=== PATIENT | male | born 1955 ===

== ENCOUNTER 2016-10-09 08:00 | Day surgery (SDC) | payer MEDICARE, OTHER ==
[2016-09-30 11:26] VITALS: BMI 22.2
[2016-10-09] MEDS ORDERED: Propofol 10 mg/ml Inj (20 ML) ONE (09:03)
[2016-10-09] MEDS ORDERED: Sodium Chloride 0.9% 1,000 ML IV SCH (10:00)
[2016-10-09 10:31] VITALS: TEMP 97.8
[2016-10-09 11:16] VITALS: BP 116/71; PULSE 69; RESP 16; O2SAT 99
== END 2016-10-09 12:00 | disposition home or self-care (01) ==
LOC: ENDO 08:00
PROVIDERS: ATTEND Internal Medicine Gastroenterology
DX: K29.50 Unspecified chronic gastritis without bleeding (principal); E11.9 Type 2 diabetes mellitus without complications; I25.10 Atherosclerotic heart disease of native coronary artery without angina pectoris; I10 Essential (primary) hypertension; J45.909 Unspecified asthma, uncomplicated; Z86.010 Personal history of colon polyps; Z79.82 Long term (current) use of aspirin; K22.10 Ulcer of esophagus without bleeding
CPT/HCPCS: 43239; 82948; 88305; 88342; J2704; J3010; J7040 ×2

== ENCOUNTER 2017-05-05 14:24 | Inpatient (IN) | payer MEDICARE, OTHER ==
[2017-05-05 14:26] VITALS: BMI 22.2
[2017-05-05] MEDS ORDERED: Morphine 4 mg/ml ISec IVP STA (15:02)
--- NOTE | 2017-05-05 15:04 | ED PDOC ---
Arrival/HPI - General Chief Complaint: Headache Time Seen by Provider: 05/05/17 14:51 Historian: Patient - History of Present Illness Narrative History of Present Illness (Text): 05/05/17 14:52 62 y/o male, pmh including chronic PA with 7 cardiac stents/htn/hyperlipidemia/ dm/anemia/chronic lt. eye blurry vision/renal insufficiency, nkda, send in by pcp Dr. Hoffman, c/o coughing and fever with fatigue x 1 week which causing him to have rt. sided neck pain radiating to the rt. posterior occipital and rt. upper extremity with no fall or trauma. Pt. stated that he has been sick for the past 1 week with fever/cough and bodyache which progressive to the rt. neck pain radiating to the rt. posterior headache and rt. upper extremity. Apparently the patient has been seen in the [facility] ER yesterday and discharge home. Pt. stated that he has not been feeling better and went to see Dr. Hoffman today which refer him to the [place] ER. Pt. stated that he has no acute vision complaints as it is chronic lt. eye blurry vision which has not worsened. pt. stated that he just feels neck pain and feeling fatigue. Past Medical History - Provider Review Nursing Documentation Reviewed: Yes - Infectious Disease Hx of Infectious Diseases: None - Cardiac Hx Hypertension: Yes Hx Pacemaker: No - Neurological Hx Paralysis: No - HEENT Hx HEENT Disorder: Yes Hx Cataracts: Yes Other/Comment: poor vision - Endocrine/Metabolic Hx Endocrine Disorders: Yes Hx Diabetes Mellitus Type 2: Yes - Hematological/Oncological Hx Blood Transfusions: No Hx Blood Transfusion Reaction: No - Musculoskeletal/Rheumatological Hx Musculoskeletal Disorders: No - Psychiatric Hx Emotional Abuse: No Hx Physical Abuse: No Hx Substance Use: No - Surgical History Hx Coronary Stent: Yes (8) - Anesthesia Hx Anesthesia Reactions: No Hx Malignant Hyperthermia: No - Suicidal Assessment Feels Threatened In Home Enviroment: No Family/Social History - Physician Review Nursing Documentation Reviewed: Yes Family/Social History: Unknown Family HX Smoking Status: Never Smoked Hx Alcohol Use: No Hx Substance Use: No Allergies/Home Meds Allergies/Adverse Reactions: Allergies No Known Allergies Allergy (Verified 05/05/17 08:37) Home Medications: Home Meds Medication Instructions Recorded Confirmed Aspirin [Ecotrin] 81 mg PO DAILY 03/31/16 05/05/17 Chlorthalidone [Hygroton] 25 mg PO DAILY 03/31/16 05/05/17 Clopidogrel [Plavix] 75 mg PO DAILY 03/31/16 05/05/17 Ezetimibe [Zetia] 10 mg PO DAILY 03/31/16 05/05/17 Glipizide [Glipizide Xl] 10 mg PO DAILY 03/31/16 05/05/17 MetFORMIN [glucOPHAGE] 1,000 mg PO BID 03/31/16 05/05/17 Nebivolol [Bystolic] 5 mg PO DAILY 03/31/16 05/05/17 Simvastatin [Zocor] 80 mg PO DAILY 03/31/16 05/05/17 amLODIPine [Norvasc] 10 mg PO DAILY 03/31/16 05/05/17 Pantoprazole Sodium [Protonix] 40 mcg PO DAILY 04/30/16 05/05/17 Donepezil HCl [Aricept] 10 mg PO HS 05/05/17 05/05/17 Donepezil [Aricept] 0 mg PO DAILY 05/05/17 05/05/17 Ferrous Sulfate 325 mg PO BID 05/05/17 05/05/17 Gabapentin [Neurontin] 300 mg PO DAILY 05/05/17 05/05/17 Memantine [Namenda] 10 mg PO DAILY 05/05/17 05/05/17 Sodium Bicarbonate 650 mg PO DAILY 05/05/17 05/05/17 rOPINIRole [Requip] 0.25 mg PO DAILY 05/05/17 05/05/17 Review of Systems - Review of Systems Constitutional: Fatigue, Fevers Eyes: absent: Vision Changes ENT: absent: Hearing Changes Respiratory: Cough, Sputum. absent: SOB, Wheezing Cardiovascular: absent: Chest Pain, Palpitations Gastrointestinal: absent: Abdominal Pain, Diarrhea, Nausea, Vomiting Musculoskeletal: Neck Pain, Myalgias. absent: Arthralgias, Back Pain, Joint Swelling Skin: absent: Rash, Pruritis Neurological: Headache. absent: Dizziness, Focal Weakness Physical Exam Vital Signs Reviewed: Yes Vital Signs Temp Pulse Resp BP Pulse Ox 05/05/17 21:24 63 17 126/80 99 05/05/17 19:30 65 17 128/72 98 05/05/17 17:33 68 18 126/70 99 05/05/17 17:02 72 18 127/89 98 05/05/17 14:36 98.8 F 68 18 128/93 H 100 Temperature: Afebrile Blood Pressure: Hypertensive Pulse: Regular Respiratory Rate: Normal Appearance: Positive for: Ill-Appearing, Uncomfortable Pain Distress: Severe Mental Status: Positive for: Alert and Oriented X 3 - Systems Exam Head: Present: Atraumatic, Normocephalic, Other (no temporal artery tenderness, no jaw claudication. ). No: Tenderness, Contusion, Swelling, Ecchymosis, Abrasion, Laceration Pupils: Present: PERRL Extroacular Muscles: Present: EOMI Conjunctiva: Present: Normal Ears: Present: NORMAL TM, Normal Canal. No: Erythema Mouth: Present: Moist Mucous Membranes Pharnyx: Present: Normal. No: ERYTHEMA, EXUDATE, TONSILS ENLARGED Nose (External): Present: Atraumatic. No: Abrasion, Contusion, Laceration Nose (Internal): Present: Normal Inspection, No Active Bleeding. No: Rhinorrhea , Septal Deviation, Septal Hematoma Neck: Present: Normal Range of Motion, Trachea Midline. No: Meningeal Signs, MIDLINE TENDERNESS, Paraspinal Tenderness, Lymphadenopathy Respiratory/Chest: Present: Clear to Auscultation, Good Air Exchange. No: Respiratory Distress, Accessory Muscle Use, Wheezes, Decreased Breath Sounds, Rales, Retracting, Rhonchi, Tachypneic, Tender to Palpation, Other Cardiovascular: Present: Regular Rate and Rhythm, Normal S1, S2. No: Murmurs Abdomen: Present: Normal Bowel Sounds. No: Tenderness, Distention, Peritoneal Signs, Rebound, Guarding Back: Present: Normal Inspection. No: CVA Tenderness, Midline Tenderness Upper Extremity: Present: Normal Inspection, Other (RUE: no tenderness or swelling, no deformity and no skin discoloration, FROM without limitation, sensation intact, motor 5/5, +radial pulse, capillary refill< 2 seconds, neurovascular intact. ). No: Cyanosis, Edema Lower Extremity: Present: Normal Inspection, NORMAL PULSES, Normal ROM. No: Edema, Tenderness, Swelling, Deformity Neurological: Present: GCS=15, CN II-XII Intact, Speech Normal, Motor Func Grossly Intact, Memory Normal Skin: Present: Warm, Dry, Normal Color. No: Rashes Psychiatric: Present: Alert, Oriented x 3, Normal Insight, Normal Concentration Medical Decision Making ED Course and Treatment: 05/05/17 15:10 -labs/ua/ck/cardiac enzyme/vbg/rapid flu -CT head/cervical -Chest xray -RUE venuous doppler -EKG -IVF/mrophine -Observe and reassess 05/05/17 17:13 -EKG: NSR @ 61 BPM, T wave inversion on the Lead II/III/aVF/V4-V6, no acute ST elevation or depression, no previous ekg for comparison. -CT Head: Mildly enlarged ventricles, [id number]-right. Generalized atrophy. Nonspecific white matter changes. Large mucosal polyp/retention cyst, left maxillary sinus. -CT Cervical: No acute fracture or subluxation identified. Straightening of the normal cervical lordosis may be related to muscle spasm or positioning. There is decreased mineralization of the bones, most likely representing osteoporosis. Rarely, underlying metabolic bone disease or infiltrative lesions can also have this appearance. This decreases the sensitivity for detection of acute fracture lines, and if this is of clinical concern, MRI should be considered. -Chest xray: Mild left basilar atelectasis/ infiltrate. Borderline cardiomegaly. Atherosclerotic calcifications of the aortic knob. -RUE Venous doppler: as per preliminary report, no acute DVT 05/05/17 17:17 -IV rocephine and zithromyc, aspirin 325mg po ordered as well as the abnormal ekg with no previous comparison. -Dr. Bunch examined the patient and agreed on the treatment/admission plan. 05/05/17 18:38 -Labs are non-significant except wbc 12.8, lactate 2.7, BUN 47 and creatine ( spoke to Dr. Hoffman and stated that this is chronic) -UA is pending -Rapid flu negative -BNP 946 and 1st set troponin is 0.02 -I spoke to Dr. Hoffman about the case/labs/radiology result, agreed to admit for inpatient and request routine consult with Dr. Borja and Dr. Jacobo to be on this case -I discussed with Dr. Bunch and he spoke with Dr. Jacobo already about this case and awared. Dr. Bunch will put in the admission tele order. - Lab Interpretations Microbiology Results: Microbiology Results 05/05/17 16:50 Blood-Venous Blood Culture - Preliminary NO GROWTH AFTER 24 HOURS 05/05/17 16:20 Blood-Venous Blood Culture - Preliminary NO GROWTH AFTER 24 HOURS Lab Results: 05/05/17 16:50 05/05/17 16:50 Lab Results 05/05/17 18:40: Urine Color Yellow, Urine Appearance Sl cloudy, Urine pH 6.0, Ur Specific [place] 1.025, Urine Protein >=300 H, Urine Glucose (UA) Negative, Urine Ketones Negative, Urine Blood Trace-intact H, Urine Nitrate Negative, Urine Bilirubin Negative, Urine Urobilinogen 0.2, Ur Leukocyte Esterase Negative , Urine RBC Negative, Urine WBC 2 - 5, Ur Epithelial Cells 3 - 4, Urine Bacteria Mod, Coarse Granular Casts Trace H 05/05/17 16:50: PT 11.1, INR 0.97, APTT 30.4 05/05/17 16:50: WBC 12.8 H D, RBC 4.06, Hgb 11.0 L, Hct 33.6 L, MCV 82.8, MCH 27.1, MCHC 32.7, RDW 15.7 H, Plt Count 274, MPV 10.5, Gran % 64.1, Lymph % (Auto ) 27.6, [place] % (Auto) 6.6 H, Eos % (Auto) 1.5, Baso % (Auto) 0.2, Gran # 8.22 H , Lymph # (Auto) 3.5 H, [place] # (Auto) 0.8 H, Eos # (Auto) 0.2, Baso # (Auto) 0.02 05/05/17 16:50: pO2 29 L, VBG pH 7.28 L, VBG pCO2 51.0, VBG HCO3 24.0, VBG Total CO2 25.6, VBG O2 Sat (Calc) 57.1, VBG Base Excess -3.3 L, VBG Potassium 4.1, Sodium 139.0, Chloride 105.0, Glucose 85, Lactate 2.7 H, FiO2 21.0, Venous Blood Potassium 4.1 05/05/17 16:50: Sodium 142, Chloride 104, Potassium 4.3, Carbon Dioxide 23, Anion Gap 19, BUN 47 H, Creatinine 3.1 H, Est GFR ( Amer) 25, Est GFR ( Non-Af Amer) 21, Random Glucose 79, Calcium 10.3, Magnesium 2.5 H, Total Bilirubin 0.8, AST 39, ALT 25, Alkaline Phosphatase 66, Lactate Dehydrogenase 513, Total Creatine Kinase 62, Troponin I 0.03, NT-Pro-B Natriuret Pep 946 H, Total Protein 8.0, Albumin 4.5, Globulin 3.5, Albumin/Globulin Ratio 1.3 05/05/17 16:50: Influenza Typ A,B (EIA) Negative for flu a/b - RAD Interpretation Radiology Orders: 05/05/17 15:02 CERVICAL SPINE W/O CONTRAST [CT] Stat HEAD W/O CONTRAST [CT] Stat CHEST TWO VIEWS (PA/LAT) [RAD] Stat 05/05/17 15:08 DUPLEX UPPER EXTRM VEIN RIGHT [US] Stat CT Head: PROCEDURE: CT HEAD WITHOUT CONTRAST. HISTORY: Rt. sided headache radiating to the RUE COMPARISON: Brain MRI without IV contrast performed 10/21/16 TECHNIQUE: Axial computed tomography images were obtained through the head/brain without intravenous contrast. Radiation dose: Total exam DLP = 861.12 mGy-cm. This CT exam was performed using one or more of the following dose reduction techniques: Automated exposure control, adjustment of the mA and/or kV according to patient size, and/or use of iterative reconstruction technique. FINDINGS: HEMORRHAGE: No intracranial hemorrhage. BRAIN: Diffuse atrophy with prominence of the ventricles and sulci noted. No mass effect or edema. Dense intracranial atherosclerosis. Scattered periventricular and subcortical white matter hypodensities, which are nonspecific, but often seen with chronic microvascular ischemic disease. Please note that MRI with diffusion imaging is more sensitive in the detection of acute ischemic event. VENTRICLES: Mildly enlarged ventricles re-identified, [id number]-right. CALVARIUM: Unremarkable. PARANASAL SINUSES: Large mucosal polyp/retention cyst within the left maxillary sinus. MASTOID AIR CELLS: Unremarkable as visualized. No inflammatory changes. OTHER FINDINGS: None. IMPRESSION: Mildly enlarged ventricles, [id number]-[id number]-dvat-right. Generalized atrophy. Nonspecific white matter changes. Large mucosal polyp/retention cyst, left maxillary sinus. ----- CT Cervical: CT cervical spine without IV contrast Indication: Neck pain radiating to right upper extremity Comparison: None available. Technique: Axial computed tomography images were obtained of the cervical spine without the use of intravenous contrast. Coronal and sagittal reformatted images were created and reviewed. This CT exam was performed using 1 or more of the following dose reduction techniques: Automated exposure control, adjustment of the MAA and/or kV according to patient size, and/or use of iterative reconstruction technique. Radiation dose: Total exam DLP = 369.90 mGy-cm. Findings: Straightening of the normal cervical lordosis may be related to muscle spasm or positioning. There is decreased mineralization of the bones, most likely representing osteoporosis. Rarely, underlying metabolic bone disease or infiltrative lesions can also have this appearance. There is no evidence of acute fracture or subluxation. Multilevel degenerative changes including intervertebral disc space narrowing and osteophyte formation. Schmorl's nodes most prominent at the inferior endplate of C5. The prevertebral soft tissues and spinolaminar lines appear intact. The lateral masses are preserved. The dens tip is intact. There is proper alignment of the lateral masses of C1 with the C2 vertebral body. Included portions of the thyroid gland appear unremarkable. Included portions of lung apices appear clear. Impression: No acute fracture or subluxation identified. Straightening of the normal cervical lordosis may be related to muscle spasm or positioning. There is decreased mineralization of the bones, most likely representing osteoporosis. Rarely, underlying metabolic bone disease or infiltrative lesions can also have this appearance. This decreases the sensitivity for detection of acute fracture lines, and if this is of clinical concern, MRI should be considered. ------ Chest xray: HISTORY: cough and fever x 1 week COMPARISON: None available. TECHNIQUE: Chest PA and lateral FINDINGS: LUNGS: Mild left basilar atelectasis/infiltrate. Please note that chest x-ray has limited sensitivity for the detection of pulmonary masses. PLEURA: No significant pleural effusion identified. No definite pneumothorax . CARDIOVASCULAR: Borderline cardiomegaly. Atherosclerotic calcifications of the aortic knob. OSSEOUS STRUCTURES: High-riding humeral heads may be seen in the setting of chronic rotator cuff injury. Degenerative changes. VISUALIZED UPPER ABDOMEN: Unremarkable. OTHER FINDINGS: None. IMPRESSION: Mild left basilar atelectasis/ infiltrate. Borderline cardiomegaly. Atherosclerotic calcifications of the aortic knob. -------- RUE Venous doppler: as per preliminary report, no acute DVT [employer] Administrator: Radiologist - EKG Interpretation EKG Interpretation (Text): 05/05/17 17:16 -EKG: NSR @ 61 BPM, T wave inversion on the Lead II/III/aVF/V4-V6, no acute ST elevation or depression, no previous ekg for comparison. Interpreted by ED Physician: Yes Type: 12 lead EKG Comparison: No previous EKG avail. - Medication Orders Current Medication Orders: Albuterol/Ipratropium (Duoneb 3 Mg/0.5 Mg (3 Ml) Ud) 3 ml IH I2IORDM [facility] Last Admin: 05/07/17 13:53 Dose: Amlodipine Besylate (Norvasc) 10 mg PO DAILY [facility] Last Admin: 05/07/17 09:10 Dose: 10 mg [facility] Blood Pressure Document 05/07/17 09:10 (Rec: 05/07/17 09:11 [id number]) Blood Pressure Blood Pressure (100/60-150/90) 149/97 Aspirin (Ecotrin) 81 mg PO DAILY [facility] Last Admin: 05/07/17 09:26 Dose: Not Given Non-Admin Reason: NPO Atorvastatin Calcium (Lipitor) 40 mg PO DAILY [facility] Last Admin: 05/07/17 09:26 Dose: Not Given Non-Admin Reason: NPO Chlorthalidone (Hygroton) 25 mg PO DAILY [facility] Last Admin: 05/07/17 09:24 Dose: 25 mg Clopidogrel Bisulfate (Plavix) 75 mg PO DAILY [facility] Last Admin: 05/07/17 09:28 Dose: Not Given Non-Admin Reason: NPO Donepezil HCl (Aricept) 10 mg PO HS [facility] Last Admin: 05/06/17 21:54 Dose: 10 mg Ezetimibe (Zetia) 10 mg PO DAILY [facility] Last Admin: 05/07/17 09:29 Dose: Not Given Non-Admin Reason: NPO Famotidine (Pepcid) 20 mg PO DAILY [facility] Last Admin: 05/07/17 09:49 Dose: Not Given Non-Admin Reason: NPO Ferrous Sulfate (Feosol) 324 mg PO BID [facility] Last Admin: 05/07/17 09:26 Dose: Not Given Non-Admin Reason: NPO Gabapentin (Neurontin) 300 mg PO DAILY [facility] Last Admin: 05/07/17 09:27 Dose: Not Given Non-Admin Reason: NPO Glipizide (Glucotrol Xl) 10 mg PO DAILY [facility] Last Admin: 05/07/17 09:26 Dose: Not Given Non-Admin Reason: NPO Hydromorphone HCl (Dilaudid) 0.5 mg IVP Q4H PRN PRN Reason: Pain, Mild (1-3) Last Admin: 05/06/17 09:12 Dose: 0.5 mg JIM Pain Assessment Document 05/06/17 09:12 (Rec: 05/06/17 09:13 [id number] Pain Reassessment Is this a pain reassessment? Yes Presence of Pain Presence of Pain Yes Pain Scale Used Pain Scale Used Numeric Location Pain Location Body Site Shoulder Back Description Intensity of Pain at present 10 Alleviating Factors/Management Medication Techniques IVP Administration Document 05/06/17 09:12 (Rec: 05/06/17 09:13 [id number]) Charges for Administration # of IVP Administrations 1 Re-Assess: JIM Pain Assessment Document 05/06/17 10:12 (Rec: 05/06/17 11:51 [id number] Pain Reassessment Is this a pain reassessment? Yes Sleep Is patient sleeping during reassessment? No Presence of Pain Presence of Pain Yes Pain Scale Used Pain Scale Used Numeric Location Pain Location Body Site Shoulder Back Description Intensity of Pain at present 5 Sodium Chloride (Sodium Chloride 0.9%) 1,000 mls @ 100 mls/hr IV .Q10H [facility] Last Admin: 05/07/17 11:42 Dose: 100 mls/hr eMAR Start Stop Document 05/07/17 11:42 VM (Rec: 05/07/17 11:43 VM [facility] [id number]) Intravenous Solution Start Date 05/07/17 Start Time 11:42 Azithromycin (Zithromax 500mg In Ns) 500 mg in 250 mls @ 167 mls/hr IVPB DAILY [facility] Last Admin: 05/07/17 09:13 Dose: 167 mls/hr eMAR Start Stop Document 05/07/17 09:13 VM (Rec: 05/07/17 09:13 VM [facility] [id number]) Intravenous Solution Start Date 05/07/17 Start Time 09:13 End Date 05/07/17 End time 10:13 Total Infusion Time 60 Dextrose/Lactated Ringer's (Dextrose 5%/Lactated Ringer's) 1,000 mls @ 75 mls/ hr IV .[id number] [facility] Stop: 05/07/17 20:01 Insulin Human Regular (Humulin R Low) 0 units SC ACHS [facility] PRN Reason: Protocol Last Admin: 05/07/17 13:44 Dose: Not Given Non-Admin Reason: NPO MAR Blood Glucose Document 05/07/17 13:44 CIRA (Rec: 05/07/17 13:45 [facility] Blood Glucose Finger Stick Blood Glucose (70-120) 131 Lidocaine (Lidoderm) 1 ea TD DAILY [facility] Last Admin: 05/07/17 14:22 Dose: Not Given Non-Admin Reason: Patient in Endo Memantine (Namenda) 10 mg PO DAILY [facility] Last Admin: 05/07/17 09:26 Dose: Not Given Non-Admin Reason: NPO Non-Formulary Medication (Nebivolol [Bystolic]) 10 mg PO DAILY [facility] Last Admin: 05/07/17 09:28 Dose: Ondansetron HCl (Zofran Inj) 4 mg IVP Q6H PRN PRN Reason: Nausea/Vomiting Last Admin: 05/06/17 11:50 Dose: 4 mg IVP Administration Document 05/06/17 11:50 JUDY (Rec: 05/06/17 11:50 [id number]) Charges for Administration # of IVP Administrations 1 Ropinirole HCl (Requip) 0.25 mg PO DAILY [facility] Last Admin: 05/07/17 09:28 Dose: Not Given Non-Admin Reason: NPO Sodium Bicarbonate (Sodium Bicarbonate Tab) 650 mg PO DAILY [facility] Last Admin: 05/07/17 09:29 Dose: Not Given Non-Admin Reason: NPO Discontinued Medications Aspirin (Aspirin) 325 mg PO STAT STA Stop: 05/05/17 17:09 Last Admin: 05/05/17 17:59 Dose: 243 mg Comments: take took 81 mg at home this morning Donepezil HCl (Aricept) 5 mg PO DAILY [facility] Last Admin: 05/06/17 09:14 Dose: 5 mg Gabapentin (Neurontin) 300 mg PO DAILY [facility] PRN Reason: Protocol Ceftriaxone Sodium (Rocephin 1 Gram Ivpb) 1 gm in 100 mls @ 200 mls/hr IVPB STAT STA PRN Reason: Protocol Stop: 05/05/17 17:45 Last Admin: 05/05/17 17:58 Dose: 200 mls/hr eMAR Start Stop Document 05/05/17 17:58 SF (Rec: 05/05/17 17:58 SF [id number]) Intravenous Solution Start Date 05/05/17 Start Time 17:58 End Date 05/05/17 End time 18:28 Total Infusion Time 30 Azithromycin (Zithromax 500mg In Ns) 500 mg in 250 mls @ 167 mls/hr IVPB STAT STA PRN Reason: Protocol Stop: 05/05/17 18:45 Last Admin: 05/05/17 18:36 Dose: 167 mls/hr eMAR Start Stop Document 05/05/17 18:36 SF (Rec: 05/05/17 18:36 SF [id number]) Intravenous Solution Start Date 05/05/17 Start Time 18:36 End Date 05/05/17 End time 20:06 Total Infusion Time 90 Morphine Sulfate (Morphine) 4 mg IVP STAT STA Stop: 05/05/17 15:03 Last Admin: 05/05/17 16:20 Dose: 4 mg MAR Pain Assessment Document 05/05/17 16:20 SF (Rec: 05/05/17 17:34 SF [id number]) Pain Reassessment Is this a pain reassessment? Yes Sleep Is patient sleeping during reassessment? No Presence of Pain Presence of Pain Yes Pain Scale Used Pain Scale Used Numeric IVP Administration Document 05/05/17 16:20 SF (Rec: 05/05/17 17:34 SF [id number]) Charges for Administration # of IVP Administrations 1 Non-Formulary Medication (Nebivolol [Bystolic]) 5 mg PO DAILY [facility] Non-Formulary Medication (Nebivolol [Bystolic]) 5 mg PO DAILY [facility] Pantoprazole Sodium (Protonix Ec Tab) 40 mg PO ACB [facility] Last Admin: 05/07/17 08:38 Dose: Not Given Non-Admin Reason: Patient Refused - PA / [employer] / Resident Statement MD/DO has reviewed & agrees with the documentation as recorded. MD/DO has examined the patient and agrees with the treatment plan. Disposition/Present on Arrival - Present on Arrival Any Indicators Present on Arrival: No History of DVT/PE: No History of Uncontrolled Diabetes: No Urinary Catheter: No History of Decub. Ulcer: No History Surgical Site Infection Following: None - Disposition Have Diagnosis and Disposition been Completed?: Yes Diagnosis: Pneumonia, Abnormal EKG, Renal insufficiency, Elevated brain natriuretic peptide (BNP) level Disposition: HOSPITALIZED Disposition Time: 17:16 Patient Plan: Admission, Telemetry Patient Problems: Current Active Problems Problem Status Onset Abnormal EKG Acute Elevated brain natriuretic peptide (BNP) level Acute Pneumonia Acute Renal insufficiency Acute Condition: STABLE
--- NOTE | 2017-05-05 16:03 | CT ---
PROCEDURE: CT HEAD WITHOUT CONTRAST. HISTORY: Rt. sided headache radiating to the RUE COMPARISON: Brain MRI without IV contrast performed 10/21/16 TECHNIQUE: Axial computed tomography images were obtained through the head/brain without intravenous contrast. Radiation dose: Total exam DLP = 861.12 mGy-cm. This CT exam was performed using one or more of the following dose reduction techniques: Automated exposure control, adjustment of the mA and/or kV according to patient size, and/or use of iterative reconstruction technique. FINDINGS: HEMORRHAGE: No intracranial hemorrhage. BRAIN: Diffuse atrophy with prominence of the ventricles and sulci noted. No mass effect or edema. Dense intracranial atherosclerosis. Scattered periventricular and subcortical white matter hypodensities, which are nonspecific, but often seen with chronic microvascular ischemic disease. Please note that MRI with diffusion imaging is more sensitive in the detection of acute ischemic event. VENTRICLES: Mildly enlarged ventricles re-identified, [id number]-right. CALVARIUM: Unremarkable. PARANASAL SINUSES: Large mucosal polyp/retention cyst within the left maxillary sinus. MASTOID AIR CELLS: Unremarkable as visualized. No inflammatory changes. OTHER FINDINGS: None. IMPRESSION: Mildly enlarged ventricles, [id number]-[id number]-right. Generalized atrophy. Nonspecific white matter changes. Large mucosal polyp/retention cyst, left maxillary sinus.
[2017-05-05] MEDS: Sodium Chloride 0.9% 1,000 ML IV SCH (16:20)
--- NOTE | 2017-05-05 16:27 | CT ---
CT cervical spine without IV contrast Indication: Neck pain radiating to right upper extremity Comparison: None available. Technique: Axial computed tomography images were obtained of the cervical spine without the use of intravenous contrast. Coronal and sagittal reformatted images were created and reviewed. This CT exam was performed using 1 or more of the following dose reduction techniques: Automated exposure control, adjustment of the MAA and/or kV according to patient size, and/or use of iterative reconstruction technique. Radiation dose: Total exam DLP = 369.90 mGy-cm. Findings: Straightening of the normal cervical lordosis may be related to muscle spasm or positioning. There is decreased mineralization of the bones, most likely representing osteoporosis. Rarely, underlying metabolic bone disease or infiltrative lesions can also have this appearance. There is no evidence of acute fracture or subluxation. Multilevel degenerative changes including intervertebral disc space narrowing and osteophyte formation. Schmorl's nodes most prominent at the inferior endplate of C5. The prevertebral soft tissues and spinolaminar lines appear intact. The lateral masses are preserved. The dens tip is intact. There is proper alignment of the lateral masses of C1 with the C2 vertebral body. Included portions of the thyroid gland appear unremarkable. Included portions of lung apices appear clear. Impression: No acute fracture or subluxation identified. Straightening of the normal cervical lordosis may be related to muscle spasm or positioning. There is decreased mineralization of the bones, most likely representing osteoporosis. Rarely, underlying metabolic bone disease or infiltrative lesions can also have this appearance. This decreases the sensitivity for detection of acute fracture lines, and if this is of clinical concern, MRI should be considered.
--- NOTE | 2017-05-05 16:49 | RAD ---
HISTORY: cough and fever x 1 week COMPARISON: None available. TECHNIQUE: Chest PA and lateral FINDINGS: LUNGS: Mild left basilar atelectasis/infiltrate. Please note that chest x-ray has limited sensitivity for the detection of pulmonary masses. PLEURA: No significant pleural effusion identified. No definite pneumothorax . CARDIOVASCULAR: Borderline cardiomegaly. Atherosclerotic calcifications of the aortic knob. OSSEOUS STRUCTURES: High-riding humeral heads may be seen in the setting of chronic rotator cuff injury. Degenerative changes. VISUALIZED UPPER ABDOMEN: Unremarkable. OTHER FINDINGS: None. IMPRESSION: Mild left basilar atelectasis/ infiltrate. Borderline cardiomegaly. Atherosclerotic calcifications of the aortic knob.
[2017-05-05] MEDS ORDERED: Azithromycin 500MG/NS 250ml 500 MG/250 ML BAG IVPB STA (17:16)
[2017-05-05] MEDS ORDERED: cefTRIAXone 1 gm 1 GM/100 ML BAG IVPB STA (17:16)
[2017-05-05 18:05] LABS: BASO # 0.02 K/mm3 (0.0-2.0); BASO % 0.2 % (0.0-3.0); EOS # 0.2 (0.0-0.7); EOS % 1.5 % (1.5-5.0); GRAN # 8.22 (1.4-6.5); GRAN % 64.1 % (50.0-68.0); LYMPH # 3.5 (1.2-3.4); LYMPH % 27.6 % (22.0-35.0); MEAN CELL VOLUME 82.8 fl (80.0-105.0); MEAN CORPUSCULAR HEMOGLOBIN 27.1 pg (25.0-35.0); MEAN CORPUSCULAR HGB CONC 32.7 g/dl (31.0-37.0); MEAN PLATELET VOLUME 10.5 fl (7.0-11.0); MONO # 0.8 (0.1-0.6); MONO % 6.6 % (1.0-6.0); RBC 4.06 10^6/uL (3.5-6.1); RED CELL DISTRIBUTION WIDTH 15.7 % (11.5-14.5); WHITE BLOOD COUNT 12.8 10^3/ul (4.5-11.0)
[2017-05-05 18:12] LABS: VENOUS BLOOD GAS BASE EXCESS -3.3 mmol/L (0.0-2.0); VENOUS BLOOD GAS PO2 29 mm/Hg (30-55); VENOUS BLOOD PH 7.28 (7.32-7.43)
[2017-05-05 18:13] LABS: INR 0.97 (0.93-1.08); PARTIAL THROMBOPLASTIN TIME 30.4 Seconds (25.1-36.5); PROTHROMBIN TIME 11.1 SECONDS (9.4-12.5)
[2017-05-05 18:21] LABS: ALB/GLOB RATIO 1.3 (1.1-1.8); ALBUMIN 4.5 g/dL (3.0-4.8); CALCIUM 10.3 mg/dL (8.4-10.5); MAGNESIUM 2.5 mg/dL (1.7-2.2)
[2017-05-05 18:25] LABS: TROPONIN I 0.03 ng/mL
[2017-05-05 18:44] LABS: URINE BILIRUBIN NEGATIVE (NEGATIVE); URINE BLOOD TRACE-INTACT (NEGATIVE); URINE GLUCOSE (UA) NEGATIVE (NEGATIVE); URINE LEUKOCYTE ESTERASE NEGATIVE Leu/uL (NEGATIVE); URINE NITRATE NEGATIVE (NEGATIVE); URINE PROTEIN >=300 mg/dL (<30 mg/dL); URINE UROBILINOGEN 0.2 E.U./dL (<1 E.U./dL)
[2017-05-05 18:45] LABS: URINE APPEARANCE SL CLOUDY (CLEAR); URINE COLOR YELLOW (YELLOW)
[2017-05-05 18:54] LABS: URINE BACTERIA MOD (NEG); URINE RBC NEGATIVE /hpf (0-2)
--- NOTE | 2017-05-05 18:54 | US ---
PROCEDURE: Right upper extremity venous US CLINICAL HISTORY: Arm pain and swelling Evaluate for deep venous thrombosis. PHYSICIAN(S): Stanley Reid M.D FINDINGS: The visualized rightinternal jugular vein is sonographically normal and compressible. No evidence of obstruction or thrombus is seen. The visualized segments of the right subclavian vein are patent with normal waveforms. No sonographic evidence of obstruction or thrombosis is seen. The visualized deep venous system of the proximal right upper extremity is sonographically normal and compressible. IMPRESSION: 1. No sonographic evidence for deep venous thrombosis in the visualized segments of the right upper extremity.
[2017-05-05 18:55] LABS: URINE COARSE GRANULAR CAST TRACE /hpf (0-2)
[2017-05-05 21:44] LABS: VENOUS BLOOD GAS BASE EXCESS -3.6 mmol/L (0.0-2.0); VENOUS BLOOD GAS PO2 40 mm/Hg (30-55); VENOUS BLOOD PH 7.27 (7.32-7.43)
[2017-05-05] MEDS ORDERED: HYDROmorphone 0.5 mg/0.5 ml ISec IVP PRN (23:10)
--- NOTE | 2017-05-06 00:29 | CARD ---
APPROVED REPORT EKG Measurement Heart [id number] [place] 134P63 [id number] <Conclusion> Normal sinus rhythm Septal infarct, age undetermined T wave abnormality, consider lateral ischemia Abnormal ECG
[2017-05-06] MEDS: Albuterol-Ipratrop 3 mg / 0.5 (3 ml) UD IH SCH ×4 (02:06→20:24)
[2017-05-06] MEDS: Sodium Chloride 0.9% 1,000 ML IV SCH ×2 (05:12→11:56)
[2017-05-06 07:43] LABS: VENOUS BLOOD GAS PO2 35 mm/Hg (30-55); VENOUS BLOOD PH 7.37 (7.32-7.43)
[2017-05-06] MEDS: Insulin Reg-LOW-Coverage SC SCH ×4 (08:29→22:42)
[2017-05-06] MEDS: Pantoprazole 40 mg EC Tab PO SCH (08:35)
[2017-05-06] MEDS: Azithromycin 500MG/NS 250ml 500 MG/250 ML BAG IVPB SCH (09:13)
[2017-05-06] MEDS: GlipiZIDE 10 mg SR Tab PO SCH (09:16)
[2017-05-06] MEDS ORDERED: Azithromycin 500 MG in Sodium Chloride 0.9% 250 ML IVPB SCH (10:00)
[2017-05-06] MEDS ORDERED: Non Formulary Medication (Nebivolol [Bystolic] 5 MG) PO SCH ×2 (10:00)
[2017-05-06] MEDS ORDERED: Non Formulary Medication (Nebivolol [Bystolic] 10 MG) PO SCH (10:00)
--- NOTE | 2017-05-06 16:12 | RAD ---
HISTORY: F/U pneumonia and compare COMPARISON: 05/05/2017 TECHNIQUE: Chest PA and lateral FINDINGS: LUNGS: No active pulmonary disease. PLEURA: No significant pleural effusion identified. No pneumothorax apparent. CARDIOVASCULAR: Normal. OSSEOUS STRUCTURES: No significant abnormalities. VISUALIZED UPPER ABDOMEN: Normal. OTHER FINDINGS: None. IMPRESSION: No active disease.
--- NOTE | 2017-05-06 16:26 | CARD ---
APPROVED REPORT EXAM: Two-dimensional and M-mode echocardiogram with Doppler and color Doppler. INDICATION Chest Pain 2D DIMENSIONS Left Atrium (2D)4.1 (1.6-4.0cm)IVSd1.3 (0.7-1.1cm) LVDd4.2 (3.9-5.9cm)PWd1.2 (0.7-1.1cm) LVDs3.0 (2.5-4.0cm)FS (%) 28.9 % LVEF (%)56.0 (>50%) M-Mode DIMENSIONS Aortic Root3.10 (2.2-3.7cm)Aortic Cusp Exc.1.80 (1.5-2.0cm) Aortic Valve AoV Peak Yndotrkp319.0cm/sAoV VTI44.5cmAO Peak GR.20mmHg LVOT Peak Bknhhcyn449.0cm/sLVOT VTI26.20cmAO Mean GR.11mmHg Mitral Valve MV E Vbjfbsda305.0cm/sMV A Tdfhlrir827.0cm/sE/A ratio0.8 TDI Lateral E' Peak V11.90cm/sMedial E' Peak V9.46cm/sE/Lateral E'8.9 E/Medial E'11.2 Pulmonary Valve PV Peak Dwryrwmw934.0cm/sPV Peak Grad.5mmHg Tricuspid Valve TR Peak Bojzsoav377en/sRAP HHCPNJMG48kbShJA Peak Gr.45mmHg VKNY50snGl LEFT VENTRICLE The left ventricle is normal size. There is mild concentric left ventricular hypertrophy. Left ventricle systolic function is normal.EF-55% There is mild to moderate hypokinesis in the mid-anteroseptal wall. Transmitral Doppler flow pattern is Grade III-reversible restrictive diastolic dysfunction. No left ventricle thrombus noted on this study. There is no ventricular septal defect visualized. There is no left ventricular aneurysm. There is no mass noted in the left ventricle. RIGHT VENTRICLE The right ventricle is normal size. There is normal right ventricular wall thickness. The right ventricular systolic function is normal. ATRIA The left atrium is mildly dilated. The right atrium size is normal. The interatrial septum is intact with no evidence for an atrial septal defect. AORTIC VALVE The aortic valve is thickened with somewhat decrease opening. The aortic valve is moderately sclerotic. There is trace aortic regurgitation. Aortic sclerosis Vs Mild As There is no aortic valvular vegetation. MITRAL VALVE The mitral valve is thickened but opens well. Mitral regurgitation is trace to mild. There is no mitral valve stenosis. There is no evidence of mitral valve prolapse. TRICUSPID VALVE The tricuspid valve leaflets are thickened , but open well. There is mild tricuspid regurgitation.RVSP-55 mmof Hg. There is no tricuspid valve stenosis. There is no tricuspid valve prolapse or vegetation. PULMONIC VALVE The pulmonic valve is mildly thickened. There is no pulmonic valvular regurgitation. There is no pulmonic valvular stenosis. GREAT VESSELS The aortic root is normal in size. The ascending aorta is normal in size. The pulmonary artery is normal. The IVC is normal in size and collapses >50% with inspiration. PERICARDIAL EFFUSION There is no pleural effusion. There is no pericardial effusion. <Conclusion> The left ventricle is normal size. There is mild concentric left ventricular hypertrophy. Left ventricle systolic function is normal.EF-55% There is trace aortic regurgitation. Aortic sclerosis Vs Mild As Mitral regurgitation is trace to mild. There is mild tricuspid regurgitation.RVSP-55 mmof Hg.
--- NOTE | 2017-05-06 17:57 | CARD ---
APPROVED REPORT EKG Measurement Heart [id number] [place] [id number] <Conclusion> Normal sinus rhythm Possible Left atrial enlargement Left ventricular hypertrophy ST & T wave abnormality, consider lateral ischemia Abnormal ECG
[2017-05-07] MEDS: Sodium Chloride 0.9% 1,000 ML IV SCH ×2 (00:18→11:42)
[2017-05-07] MEDS: Albuterol-Ipratrop 3 mg / 0.5 (3 ml) UD IH SCH ×4 (01:23→20:26)
--- NOTE | 2017-05-07 01:47 | CON ---
DATE: SERVICE: Cardiology. REASON FOR THE CONSULTATION AND FOLLOWUP: Cardiac evaluation, abnormal EKG, history of coronary artery disease, history of multiple stents. BRIEF CLINICAL HISTORY: A 62-year-old male with past medical history significant for HI, history of multiple cardiac catheterization, stent, anemia, chronic renal insufficiency, baseline creatinine of 2 to 2.4, who came yesterday having cough and fever and fatigue and generalized weakness for 1 week and pressure in the chest as well. In right shoulder, at the acromioclavicular joint, very tenderness. Went yesterday morning to [facility], then afternoon discharged from there; thereafter went to the [facility] and was discharged; and then went to see Dr. Hoffman, who referred to the ER. Patient came to the ER, EKG was done, found to be T-wave inversion in V5, V6; Cardiac consult was called. Though patient denies any chest pain, but complained of generalized weakness, lethargy, fevers, chills, and flu-like symptoms. PAST MEDICAL HISTORY: Significant for hypertension, hyperlipidemia, coronary artery disease, chronic renal insufficiency, status post HI, and status post multiple stents. SOCIAL HISTORY: Denies any smoking. Denies any history of alcohol abuse. CURRENT MEDICATIONS: Patient at home is taking Aricept, chlorthalidone, Namenda, Neurontin, Requip, Zocor, metformin, ferrous sulfate, amlodipine, nebivolol that is Bystolic 5 mg, glipizide, clopidogrel, aspirin. CARDIAC WORKUPS: Recent cardiac workup as follows: Patient had a stress test done on 06/15/2016, that showed abnormal myocardial perfusion study, fixed anteroseptal defect that was suggestive of ischemia, ejection fraction 48%, dated 06/15/2016 and stress component. Patient walked on the treadmill, after 6 minutes and 6 seconds, Vince protocol, due to fatigue; patient achieved 84% of predicted heart rate, no chest pain, no ST-T changes noted, dated 06/15/2016. The patient also had echocardiogram done on 06/15/2016, that showed ejection fraction of 45%, regional wall motion abnormality noted, [id number] hypokinesis of the anterior septal wall, trace aortic regurgitation, mild mitral regurgitation, mild tricuspid regurgitation, RV systolic pressure of 83; 48% by stress test and 45% by echo. Following this, patient had a MUGA scan done that showed ejection fraction of 51%. REVIEW OF SYSTEMS: As per HPI. PHYSICAL EXAMINATION: VITAL SIGNS: Temperature is afebrile, heart rate 86, blood pressure 132/ . HEENT: PERRLA, intact. NECK: Supple. No carotid bruits or thyromegaly. CHEST: Clear to auscultation. HEART: S1 and S2 regular. ABDOMEN: Soft. EXTREMITIES: Clubbing and cyanosis, negative. LABORATORY DATA: Blood workup as follows: WBC 12.8, hemoglobin 11.0, hematocrit 33.6, and platelet count 274. Chemistry shows sodium 140, potassium 4.0, chloride 104, carbon dioxide 23, anion gap of 47, BUN 19, and creatinine 3.1. Magnesium 2.2. Troponin 0.2, 0.23. IMPRESSION: Atypical chest pain, so far no evidence of acute myocardial infarction; renal insufficiency, chronic creatinine clearance of 20 to 25 mL, stage IV chronic kidney disease; diabetes; hypertension; hyperlipidemia; coronary artery disease with multiple stents. Flu test is negative. Chest x-ray, left basal infiltrate, patient has early pneumonia. No evidence of acute myocardial infarction. RECOMMENDATIONS: Continue to treat aggressively for pneumonia. We will get echo to assess LV function. The patient will do a stress. We are going to proceed for a stress test, maybe as an outpatient, we will treat pneumonia. Monitor renal function. Avoid nephrotoxic medication. We will follow with you. Thank you, Dr. Hoffman, for providing us the opportunity in taking care of the patient, Anyi Herrera. Anyi Jacobo MD
[2017-05-07 05:39] LABS: CREATININE,RANDOM URINE 34 mg/dL; TOTAL PROTEIN,RANDOM URINE 106 mg/L
--- NOTE | 2017-05-07 07:11 | HP ---
CHIEF COMPLAINT: Headache, neck pain. HISTORY OF PRESENT ILLNESS: Mr. 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 Actually the patient came in my office and I sent him. He is complaining about coughing, but no fever, feeling fatigued and tired, right-sided neck pain, radiating to the right upper extremity. Pain is in the posterior occipital region also. No fall or trauma. Patient is sick from 1 week with fever, coughing, body aches, which progressed to the right neck pain radiating to the right posterior head and right upper extremity. Actually, patient went 2 times in [facility] ER and one time in [facility] ER. Patient states that he has not been feeling better. Came to see me in my office. Then I sent him to [facility] emergency room. PAST MEDICAL HISTORY: As above. 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 HABITS: Never smoked. No drugs. No ethanol. ALLERGIES: PATIENT IS NOT ALLERGIC TO ANY MEDICATION. HOME MEDICATIONS: Reviewed by me. Ecotrin, chlorthalidone, Plavix, Zetia, glipizide, Glucophage, Bystolic, Zocor, Norvasc, Protonix, Aricept, ferrous sulfate, Neurontin, Namenda, bicarbonate, Requip. REVIEW OF SYSTEMS: The patient seen and examined on the bedside in his room. Feeling little bit better. Having nausea and vomiting, Zofran given. Headache is little bit better, still having headache, fatigue, and tired. No hematuria. No hematochezia. PHYSICAL EXAMINATION: VITAL SIGNS: Temperature 97.5, pulse 76, blood pressure 132/69, respiratory rate 18. HEENT: Head is normocephalic and atraumatic. Eyes, PERRLA. Extraocular movements are intact. Conjunctivae clear. Nose patent. Mucous membrane moist. NECK: Supple. No carotid bruit, JVD, or thyromegaly. CHEST: Bilaterally symmetrical. HEART: S1 and S2 positive. LUNGS: Clear to auscultation. ABDOMEN: Soft. Bowel sounds present. No organomegaly. EXTREMITIES: No edema. No cyanosis. NEUROLOGICAL: The patient is awake and alert. Moving all 4 extremities. No focal deficits. LABORATORY DATA: White blood cells 12.8, hemoglobin 11.0, hematocrit 33.6, platelets 274. Glucose 300, 165. Sodium 142, potassium 4.3, BUN 47, creatinine 3.1, magnesium 2.5. ASSESSMENT AND PLAN: Mr. Anyi Herrera is a 62-year-old male with leukocytosis, anemia, renal insufficiency, hyperglycemia, hypomagnesemia, proteinuria, hematuria. Influenza type A and B are negative. Came with headache, neck pain, and right upper extremity pain. Chest x-ray done showed no active disease. Doppler of the extremities done that showed no sonographic evidence of deep vein thrombosis in the segment of the right upper extremity. CAT scan of head done that showed mildly enlarged ventricles - left greater than the right, generalized atrophy, nonspecific white matter changes, large mucosal polyp, retention cyst - left maxillary sinus, sinusitis. Cervical spine x-ray is done. No acute fracture or subluxation identified, straightening of the normal cervical lordosis may be related to muscle spasm or positioning. There is decreased mineralization of the bone, most likely representing osteoporosis. Patient has a history of multiple medical problems, has cardiac stents - at least 7 to 8, hypertension, hypercholesterolemia, chronic eye problem, retinitis pigmentosa, renal insufficiency. We put patient on home medications. Called consult with Dr. Jacobo for coronary artery disease; Dr. Borja to rule out pneumonia and bronchitis; and Dr. Bloom, as the patient is constantly vomiting. Started on antibiotics. Repeat more labs. Wait for the input of the other consultants. Gastrointestinal and deep vein thrombosis prophylaxes. We will follow up. Gill Hoffman MD JEMIMA
[2017-05-07 07:12] LABS: BASO # 0.01 K/mm3 (0.0-2.0); BASO % 0.1 % (0.0-3.0); EOS # 0.1 (0.0-0.7); EOS % 1.2 % (1.5-5.0); GRAN # 5.15 (1.4-6.5); HEMOGLOBIN 8.8 g/dL (14.0-18.0); LYMPH % 25.3 % (22.0-35.0); MEAN CELL VOLUME 82.9 fl (80.0-105.0); MEAN CORPUSCULAR HEMOGLOBIN 26.4 pg (25.0-35.0); MEAN CORPUSCULAR HGB CONC 31.9 g/dl (31.0-37.0); MEAN PLATELET VOLUME 10.7 fl (7.0-11.0); MONO # 0.6 (0.1-0.6); MONO % 7.4 % (1.0-6.0); RBC 3.33 10^6/uL (3.5-6.1); RED CELL DISTRIBUTION WIDTH 15.8 % (11.5-14.5); WHITE BLOOD COUNT 7.8 10^3/ul (4.5-11.0)
[2017-05-07 07:23] LABS: IRON 24 ug/dL (45-180)
[2017-05-07 07:24] LABS: ALB/GLOB RATIO 1.2 (1.1-1.8); ALBUMIN 3.5 g/dL (3.0-4.8); ALT/SGPT 22 U/L (7-56); AST/SGOT 26 U/L (17-59); BLOOD UREA NITROGEN 29 mg/dL (7-21); CALCIUM 9.5 mg/dL (8.4-10.5); GFR AFRICAN-AMERICAN 29; GFR NON-AFRICAN AMERICAN 24; HDL CHOLESTEROL 35 mg/dL (29-60)
[2017-05-07 07:32] LABS: % IRON SATURATION 8 % (20-55); TOTAL IRON BINDING CAPACITY 292 ug/dL (261-462)
[2017-05-07 07:37] LABS: LDL CHOLESTEROL 32 mg/dL (0-129)
--- NOTE | 2017-05-07 08:02 | CON ---
DATE: 05/06/2017 PULMONARY CONSULTATION REFERRING PHYSICIAN: Dr. Hoffman. REASON FOR CONSULTATION: Cough and shortness of breath. HISTORY OF PRESENT ILLNESS: This is a 62-year-old gentleman with past medical history significant for coronary artery disease, history of multiple coronary stents, hypertension, hyperlipidemia, diabetes, anemia, history of blurred vision secondary to retinal degeneration, also have a renal insufficiency, being to at least 2 to 3 different hospital's emergency room with fever, chills, body aches and rhinitis. No hemoptysis, no hematemesis, no hematuria, no diarrhea reported. PAST MEDICAL HISTORY: As per history present illness. 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 No smoking or alcohol use. ALLERGIES: NONE KNOWN. FAMILY HISTORY: Unremarkable. MEDICATIONS: He is on Aricept 10 mg at bedtime, Dilaudid 0.5 mg q. 4 hours p.r.n., DuoNeb q. 6 hours, Ecotrin 81 mg daily, ferrous sulfate 324 mg twice a day, glipizide 10 mg daily, insulin coverage, hydrochlorothiazide 25 mg daily, Lipitor 40 mg daily, Namenda 10 mg daily, Bystolic 10 mg daily, Neurontin 300 mg daily, Norvasc 10 mg daily, Plavix 75 mg daily, Protonix 40 mg daily. Requip 0.25 mg daily, bicarbonate 650 mg daily, IV fluid normal saline 100 mL per hour, Zetia 10 mg daily, Zithromax 500 mg daily, Zofran p.r.n. basis. REVIEW OF SYSTEMS: No headache, not much rhinitis. Has cough, shortness of breath, chills and fever at home, mild nausea. No abdominal pain, also have some diarrhea. No leg pain or leg swelling. Does not know if he snore, daytime sleepy and tired. PHYSICAL EXAMINATION: GENERAL: No acute distress. VITAL SIGNS: Temperature is 98, heart rate 86, respiratory rate 18, blood pressure 132/69, pulse ox of 96% room air. HEENT: Moist mucous membranes. Crowded airway. NECK: Supple. No JVD. LUNGS: Has fair airflow with a few rhonchi. HEART: S1 and S2. ABDOMEN: Soft, nontender. No organomegaly. EXTREMITIES: No edema. NEUROLOGICAL: Awake and alert. Follows simple command. LABORATORY DATA: Shows hemoglobin 11.0, hematocrit 33.6, WBC 12.8, platelet is 274. INR 0.97. PTT is 30. VBG show pH 7.37, pCO2 of 40, O2 is 35. Blood sugar is 300. Sodium 142, potassium 4.3, chloride 104, bicarbonate 23, BUN 47, creatinine 3.1, glucose 162, calcium is 10.3, magnesium 2.5, AST 39, ALT 25, alk phos is 66. LDH 513. Troponin 0.03. ProBNP 946. Albumin 4.5. Urinalysis shows wbc 2 to 5, rbc 3 to 4. Influenza antibodies negative. Microbiology, blood culture has been negative. IMPRESSION AND PLAN: Probably viral syndrome with acute bronchitis, history of coronary artery disease, diabetes, anemia, renal failure. Agree with Dr. Hoffman, may add inhaled bronchodilator, Tessalon Perles, gastric prophylaxis, deep venous thrombosis prophylaxis. Sleep apnea precaution. Keep head 45 degrees. Continue supportive care. Thank you and we will follow with you. Anyi Borja MD
[2017-05-07] MEDS: Insulin Reg-LOW-Coverage SC SCH ×3 (08:20→17:00)
[2017-05-07] MEDS: Pantoprazole 40 mg EC Tab PO SCH ×2 (08:33→08:38)
[2017-05-07] MEDS: Azithromycin 500MG/NS 250ml 500 MG/250 ML BAG IVPB SCH (09:13)
[2017-05-07] MEDS: GlipiZIDE 10 mg SR Tab PO SCH (09:26)
[2017-05-07] MEDS: Non Formulary Medication (Nebivolol [Bystolic] 10 MG) PO SCH ×2 (09:28→18:27)
--- NOTE | 2017-05-07 09:50 | CP.PCM.CON ---
<Olivia Arana - Last Filed: 05/07/17 09:49> History of Present Illness - History of Present Illness History of Present Illness: Seen and examined at the bedside earlier this morning, chart review. Request for GI consultation is for nausea. HPI: This is a 62-year-old male with a past medical history of diabetes mellitus , [place], status post cardiac stents 7 on Plavix, hypertension, chronic kidney disease and occasional memory loss per pateint, came to the emergency room with complaints of coughing and fever and fatigue 1 week. [place] [facility] [facility] for evaluation was sent home. He saw his PCP office with same complaints and was sent to the emergency room for further evaluation. This patient is known to our service from outpatient office. He complained of nausea and several episodes of vomiting yesterday after administration of pain medication. The patient states that he hasn't had any episode of vomiting or further nausea. No complaints of shortness of breath or chest pain, he does feel weak. Denies abdominal pain, change in bowel habits, or any overt GI bleed. He did have a chest x-ray on admission and it showed a left basal infiltrate and had repeat CXR 05/06 which did not show active disease, no inflitrates. Flu test was done which was negative. This morning he did state he had some nausea. No vomiting. He does have a history of esophageal ulcers, and he had an endoscopy on 10/09/16 which was negative for ulcers but did show food in the stomach, chronic gastritis and nodularity of the duodenal bulb. His biopsies were negative for H. pylori or intestinal metaplasia, duodenal biopsies were negative. Last colonoscopy was April 30, 2016 found to have sigmoid polyp, internal hemorrhoids and had a suboptimal prep. He is scheduled for an outpatient colon in May. PMH:Retinitis pigmentosa,Hypercholesterolemia,Hypertension,Esophageal ulcer, healed, recent memory disturbance, DM type II, HTN, gastroparesis Surgical History: Prior surgeries include coronary artery catheterization with stenting (X8) and broken femur. Last Colonoscopy was done on Apr 30, 2016, last EGD on 10/09/16. Social History: Non smoker. The patient does not drink alcoholic beverages. Allergy: No Known Allergies MEDS: reviewed as per MAR, significant for Plavix Family History: noncontributory ROS: systems reviewed, with positive findings, see HPI Past Patient History - Infectious Disease Hx of Infectious Diseases: None - Past Social History Smoking Status: Never Smoked - CARDIAC Hx Cardiac Disorders: Yes Hx Angina: No Hx Cardia Arrhythmia: No Hx Circulatory Problems: No Hx Congestive Heart Failure: No Hx Heart Murmur: No Hx Heart Transplant: No Hx Hypercholesterolemia: Yes Hx Hypertension: Yes Hx Internal Defibrillator: No Hx Mitral Valve Prolapse: No Hx Pacemaker: No Hx Peripheral Edema: No Hx Peripheral Vascular Disease: No - PULMONARY Hx Respiratory Disorders: Yes Hx Asthma: No Hx Bronchitis: No Hx Chronic Obstructive Pulmonary Disease (COPD): No Hx Emphysema: No Hx Pneumonia: Yes Hx Respiratory Aspiration: No Hx Respiratory Tract Infection: No Hx Sleep Apnea: No Hx Tuberculosis: No - NEUROLOGICAL Hx Neurological Disorder: No Hx Alzheimer's Disease: No HX Cerebrovascular Accident: No Hx Dementia: No Hx Dizziness: No Hx Meningitis: No Hx Migraine: No Hx Parkinson's Disease: No Hx Seizures: No Hx Transient Ischemic Attacks (TIA): No - HEENT Hx HEENT Problems: Yes (retinitis pigmentosis) Hx Blind: No Hx Cataracts: Yes Hx Deafness: No Hx Difficulty Chewing: No Hx Epistaxis: No Hx Glaucoma: No Hx Macular Degeneration: Yes - RENAL Hx Chronic Kidney Disease: Yes Hx Dialysis: No Hx Neurogenic Bladder: No Hx Pyelonephritis: No Hx Renal (Kidney) Cancer: No Hx Renal Failure: No - ENDOCRINE/METABOLIC Hx Endocrine Disorders: Yes Hx Adrenal Cancer: No Hx Diabetes Insipidus: No Hx Diabetes Mellitus Type 1: No Hx Diabetes Mellitus Type 2: Yes Hx Hyperthyroidism: No Hx Hypothyroidism: No Hx Systemic Lupus Erythematosus: No - HEMATOLOGICAL/ONCOLOGICAL Hx Blood Disorders: Yes Hx AIDS: No Hx Anemia: Yes Hx Cancer: No Hx Chemotherapy: No Hx Cirrhosis: No Hx Hemophilia: No Hx Hepatitis A: No Hx Hepatitis B: No Hx Hepatitis C: No Hx Human Immunodeficiency Virus (HIV): No Hx Metastesis: No Hx Shingles: No Hx Sickle Cell Disease: No Hx Unexplained Bleeding: No - INTEGUMENTARY Hx Dermatological Problems: No Hx Basil Cell: No Hx Eczema: No Hx Melanoma: No Hx Psoriasis: No Hx Squamous Cell: No - MUSCULOSKELETAL/RHEUMATOLOGICAL Hx Musculoskeletal Disorders: Yes Hx Arthritis: No Hx Back Pain: No Hx Degenerative Joint Disease: No Hx Falls: Yes Hx Fractures: Yes (Right femur, right arm, right patella.) Hx Gout: No Hx Herniated Disk: No Hx Myasthenia Gravis: No Hx Osteoarthritis: No Hx Osteomyelitis: No Hx Osteoporosis: No Hx Rhabdomyolysis: No Hx Spinal Stenosis: No Hx Unsteady Gait: No - GASTROINTESTINAL Hx Gastrointestinal Disorders: Yes Hx Colostomy: No Hx Crohn's Disease: No Hx Diverticulitis: No Hx Gall Bladder Disease: No Hx Gastroesophageal Reflux: Yes Hx Ileostomy: No Hx Liver Failure: No Hx Pancreatitis: No HX Swallowing Problems: No Hx Ulcer: No - GENITOURINARY/GYNECOLOGICAL Hx Genitourinary Disorders: No Hx Hematuria: No Hx Incontinence: No Hx Prostate Problems: No Hx Sexually Transmitted Disorders: No Hx Urinary Tract Infection: No - PSYCHIATRIC Hx Psychophysiologic Disorder: No Hx Anxiety: No Hx Bipolar Disorder: No Hx Depression: No Hx Emotional Abuse: No Hx Hallucinations: No Hx Panic Symptoms: No Hx Paranoia: No Hx Post Traumatic Stress Disorder: No Hx Psychosis: No Hx Physical Abuse: No Hx Schizophrenia: No Hx Sexual Abuse: No - SURGICAL HISTORY Hx Surgeries: Yes Hx Amputation: No Hx Appendectomy: No Hx Cardiac Catheterization: Yes Hx Cholecystectomy: No Hx Coronary Stent: Yes (x8) Hx Gastric Bypass Surgery: No Hx Hysterectomy: No Hx Joint Replacement: No Hx Kidney Transplant: No Hx Liver Transplant: No Hx Mastectomy: No Hx Musculoskeletal Surgery: Yes (right femur pinning and plate insertion) Hx Open Heart Surgery: No Hx Orthopedic Surgery: No Hx Splenectomy: No Hx Valve Replacement: No - ANESTHESIA Hx Anesthesia Reactions: No Hx Malignant Hyperthermia: No Meds Allergies/Adverse Reactions: Allergies Allergy/AdvReac Type Severity Reaction Status Date / Time No Known Allergies Allergy Verified 05/05/17 08:37 - Medications Medications: Current Medications Albuterol/Ipratropium (Duoneb 3 Mg/0.5 Mg (3 Ml) Ud) 3 ml IH [id number] [facility] Last Admin: 05/07/17 08:32 Dose: 3 ml Amlodipine Besylate (Norvasc) 10 mg PO DAILY [facility] Last Admin: 05/07/17 09:10 Dose: 10 mg Aspirin (Ecotrin) 81 mg PO DAILY [facility] Last Admin: 05/06/17 09:14 Dose: 81 mg Atorvastatin Calcium (Lipitor) 40 mg PO DAILY [facility] Last Admin: 05/06/17 09:14 Dose: 40 mg Chlorthalidone (Hygroton) 25 mg PO DAILY [facility] Last Admin: 05/06/17 11:51 Dose: 25 mg Clopidogrel Bisulfate (Plavix) 75 mg PO DAILY [facility] Last Admin: 05/06/17 09:14 Dose: 75 mg Donepezil HCl (Aricept) 10 mg PO HS [facility] Last Admin: 05/06/17 21:54 Dose: 10 mg Ezetimibe (Zetia) 10 mg PO DAILY [facility] Last Admin: 05/06/17 09:14 Dose: 10 mg Ferrous Sulfate (Feosol) 324 mg PO BID [facility] Last Admin: 05/06/17 17:18 Dose: 324 mg Gabapentin (Neurontin) 300 mg PO DAILY [facility] Last Admin: 05/06/17 11:50 Dose: 300 mg Glipizide (Glucotrol Xl) 10 mg PO DAILY [facility] Last Admin: 05/06/17 09:16 Dose: 10 mg Hydromorphone HCl (Dilaudid) 0.5 mg IVP Q4H PRN PRN Reason: Pain, Mild (1-3) Last Admin: 05/06/17 09:12 Dose: 0.5 mg Sodium Chloride (Sodium Chloride 0.9%) 1,000 mls @ 100 mls/hr IV .Q10H [facility] Last Admin: 05/07/17 00:18 Dose: 100 mls/hr Azithromycin (Zithromax 500mg In Ns) 500 mg in 250 mls @ 167 mls/hr IVPB DAILY [facility] Last Admin: 05/07/17 09:13 Dose: 167 mls/hr Insulin Human Regular (Humulin R Low) 0 units SC ACHS [facility] PRN Reason: Protocol Last Admin: 05/07/17 08:20 Dose: Not Given Memantine (Namenda) 10 mg PO DAILY [facility] Last Admin: 05/06/17 09:14 Dose: 10 mg Non-Formulary Medication (Nebivolol [Bystolic]) 10 mg PO DAILY [facility] Ondansetron HCl (Zofran Inj) 4 mg IVP Q6H PRN PRN Reason: Nausea/Vomiting Last Admin: 05/06/17 11:50 Dose: 4 mg Pantoprazole Sodium (Protonix Ec Tab) 40 mg PO ACB [facility] Last Admin: 05/07/17 08:38 Dose: Not Given Ropinirole HCl (Requip) 0.25 mg PO DAILY [facility] Last Admin: 05/06/17 09:13 Dose: 0.25 mg Sodium Bicarbonate (Sodium Bicarbonate Tab) 650 mg PO DAILY [facility] Last Admin: 05/06/17 09:14 Dose: 650 mg Physical Exam - Constitutional Appears: No Acute Distress - Eye Exam Eye Exam: Normal appearance. absent: Scleral icterus - ENT Exam ENT Exam: Mucous Membranes Moist - Neck Exam Neck exam: Positive for: Normal Inspection - Respiratory Exam Respiratory Exam: Decreased Breath Sounds, NORMAL BREATHING PATTERN. absent: Respiratory Distress - Cardiovascular Exam Cardiovascular Exam: +S1, +S2 - GI/Abdominal Exam GI & Abdominal Exam: Normal Bowel Sounds, Soft. absent: Guarding, Organomegaly , Rebound, Tenderness - Extremities Exam Extremities exam: Positive for: pedal pulses present. Negative for: calf tenderness, pedal edema - Neurological Exam Neurological exam: Alert, Oriented x3 - Skin Skin Exam: Dry, Warm Results - Vital Signs Recent Vital Signs: Last Vital Signs Temp 99.0 F 05/07/17 06:00 Pulse 80 05/07/17 06:00 Resp 20 05/07/17 06:00 BP 149/97 H 05/07/17 09:10 Pulse Ox 98 05/07/17 06:00 - Labs Result Diagrams: 05/07/17 06:45 05/07/17 06:45 Labs: Laboratory Results - last 24 hr 05/06/17 05/06/17 05/06/17 10:03 10:42 16:04 WBC RBC Hgb Hct MCV MCH MCHC RDW Plt Count MPV Gran % Lymph % (Auto) Phillips % (Auto) Eos % (Auto) Baso % (Auto) Gran # Lymph # (Auto) Phillips # (Auto) Eos # (Auto) Baso # (Auto) Sodium Potassium Chloride Carbon Dioxide Anion Gap BUN Creatinine Est GFR ( Amer) Est GFR (Non-Af Amer) POC Glucose (mg/dL) 184 H 165 H 300 H Random Glucose Calcium Phosphorus Magnesium Iron TIBC % Saturation Total Bilirubin AST ALT Alkaline Phosphatase Total Protein Albumin Globulin Albumin/Globulin Ratio Triglycerides Cholesterol LDL Cholesterol Direct HDL Cholesterol TSH 3rd Generation Ur Random Creatinine U Random Total Protein Ur Random Urea Nitrogn 05/07/17 05/07/17 05/07/17 04:30 04:30 06:45 WBC RBC Hgb Hct MCV MCH MCHC RDW Plt Count MPV Gran % Lymph % (Auto) Phillips % (Auto) Eos % (Auto) Baso % (Auto) Gran # Lymph # (Auto) Phillips # (Auto) Eos # (Auto) Baso # (Auto) Sodium Potassium Chloride Carbon Dioxide Anion Gap BUN Creatinine Est GFR ( Amer) Est GFR (Non-Af Amer) POC Glucose (mg/dL) Random Glucose Calcium Phosphorus Magnesium Iron 24 L TIBC 292 % Saturation 8 L Total Bilirubin AST ALT Alkaline Phosphatase Total Protein Albumin Globulin Albumin/Globulin Ratio Triglycerides Cholesterol LDL Cholesterol Direct HDL Cholesterol TSH 3rd Generation Ur Random Creatinine 34 U Random Total Protein 106 Ur Random Urea Nitrogn 258 05/07/17 05/07/17 05/07/17 06:45 06:45 06:45 WBC 7.8 D RBC 3.33 L Hgb 8.8 L D Hct 27.6 L MCV 82.9 MCH 26.4 MCHC 31.9 RDW 15.8 H Plt Count 226 MPV 10.7 Gran % 66.0 Lymph % (Auto) 25.3 Phillips % (Auto) 7.4 H Eos % (Auto) 1.2 L Baso % (Auto) 0.1 Gran # 5.15 Lymph # (Auto) 2.0 Phillips # (Auto) 0.6 Eos # (Auto) 0.1 Baso # (Auto) 0.01 Sodium 145 Potassium 4.0 Chloride 109 H Carbon Dioxide 23 Anion Gap 16 BUN 29 H Creatinine 2.7 H Est GFR ( Amer) 29 Est GFR (Non-Af Amer) 24 POC Glucose (mg/dL) Random Glucose 100 Calcium 9.5 Phosphorus 3.6 Magnesium 2.0 Iron TIBC % Saturation Total Bilirubin 0.6 AST 26 ALT 22 Alkaline Phosphatase 49 Total Protein 6.4 Albumin 3.5 Globulin 2.9 Albumin/Globulin Ratio 1.2 Triglycerides 94 Cholesterol 91 L LDL Cholesterol Direct 32 HDL Cholesterol 35 TSH 3rd Generation 1.30 Ur Random Creatinine U Random Total Protein Ur Random Urea Nitrogn Assessment & Plan - Assessment and Plan (Free Text) Assessment: ASSESSMENT: Nausea, differential medication induced, gastroparesis Leukocytosis, r/o Pnuemonia/Bronchitis? H/O esophageal ulcer CAD, h/o caridac stents x7 on Plavix DM Retinitis pigmentosis PLAN: DC Protonix and change to Pepcid 20 mg BID monitor H/H on Zithromax on Iron supplement on Namenda Zofran PRN NPO X meds(hold asa and Plavix) for EGD today, diagnostic on Plavix Thank you for this consult and for allowing us to participate in your patient care, further recommendation based upon clinical course. Seen and discussed w/ Dr. Bloom. <Jefferosn Bloom V - Last Filed: 05/07/17 20:33> Meds - Medications Medications: Current Medications Albuterol/Ipratropium (Duoneb 3 Mg/0.5 Mg (3 Ml) Ud) 3 ml IH [id number] [facility] Last Admin: 05/07/17 20:26 Dose: 3 ml Amlodipine Besylate (Norvasc) 10 mg PO DAILY [facility] Last Admin: 05/07/17 09:10 Dose: 10 mg Aspirin (Ecotrin) 81 mg PO DAILY [facility] Last Admin: 05/07/17 09:26 Dose: Not Given Atorvastatin Calcium (Lipitor) 40 mg PO DAILY [facility] Last Admin: 05/07/17 09:26 Dose: Not Given Chlorthalidone (Hygroton) 25 mg PO DAILY [facility] Last Admin: 05/07/17 09:24 Dose: 25 mg Clopidogrel Bisulfate (Plavix) 75 mg PO DAILY [facility] Last Admin: 05/07/17 09:28 Dose: Not Given Donepezil HCl (Aricept) 10 mg PO HS [facility] Last Admin: 05/06/17 21:54 Dose: 10 mg Ezetimibe (Zetia) 10 mg PO DAILY [facility] Last Admin: 05/07/17 09:29 Dose: Not Given Famotidine (Pepcid) 20 mg PO DAILY [facility] Last Admin: 05/07/17 09:49 Dose: Not Given Ferrous Sulfate (Feosol) 324 mg PO BID [facility] Last Admin: 05/07/17 17:56 Dose: 324 mg Gabapentin (Neurontin) 300 mg PO DAILY [facility] Last Admin: 05/07/17 09:27 Dose: Not Given Glipizide (Glucotrol Xl) 10 mg PO DAILY [facility] Last Admin: 05/07/17 09:26 Dose: Not Given Hydromorphone HCl (Dilaudid) 0.5 mg IVP Q4H PRN PRN Reason: Pain, Mild (1-3) Last Admin: 05/06/17 09:12 Dose: 0.5 mg Azithromycin (Zithromax 500mg In Ns) 500 mg in 250 mls @ 167 mls/hr IVPB DAILY [facility] Last Admin: 05/07/17 09:13 Dose: 167 mls/hr Sodium Chloride (Sodium Chloride 0.9%) 1,000 mls @ 100 mls/hr IV .Q10H [facility] Insulin Human Regular (Humulin R Low) 0 units SC ACHS [facility] PRN Reason: Protocol Last Admin: 05/07/17 17:00 Dose: Not Given Lidocaine (Lidoderm) 1 ea TD DAILY [facility] Last Admin: 05/07/17 18:57 Dose: 1 ea Memantine (Namenda) 10 mg PO DAILY [facility] Last Admin: 05/07/17 09:26 Dose: Not Given Metoclopramide HCl (Reglan) 5 mg IVP AC [facility] Last Admin: 05/07/17 17:57 Dose: 5 mg Non-Formulary Medication (Nebivolol [Bystolic]) 10 mg PO DAILY [facility] Last Admin: 05/07/17 18:27 Dose: 10 mg Ondansetron HCl (Zofran Inj) 4 mg IVP Q6H PRN PRN Reason: Nausea/Vomiting Last Admin: 05/06/17 11:50 Dose: 4 mg Ropinirole HCl (Requip) 0.25 mg PO DAILY [facility] Last Admin: 05/07/17 09:28 Dose: Not Given Sodium Bicarbonate (Sodium Bicarbonate Tab) 650 mg PO DAILY [facility] Last Admin: 05/07/17 09:29 Dose: Not Given Tizanidine HCl (Zanaflex) 4 mg PO HS [facility] Results - Vital Signs Recent Vital Signs: Last Vital Signs Temp 98.7 F 05/07/17 18:00 Pulse 65 05/07/17 18:00 Resp 18 05/07/17 18:00 BP 138/90 05/07/17 18:00 Pulse Ox 96 05/07/17 18:00 - Labs Result Diagrams: 05/07/17 06:45 05/07/17 06:45 Labs: Laboratory Results - last 24 hr 05/06/17 05/07/17 05/07/17 22:41 04:30 04:30 WBC RBC Hgb Hct MCV MCH MCHC RDW Plt Count MPV Gran % Lymph % (Auto) Phillips % (Auto) Eos % (Auto) Baso % (Auto) Gran # Lymph # (Auto) Phillips # (Auto) Eos # (Auto) Baso # (Auto) Sodium Potassium Chloride Carbon Dioxide Anion Gap BUN Creatinine Est GFR ( Amer) Est GFR (Non-Af Amer) POC Glucose (mg/dL) 155 H Random Glucose Hemoglobin A1c Calcium Phosphorus Magnesium Iron TIBC % Saturation Ferritin Total Bilirubin AST ALT Alkaline Phosphatase Total Protein Albumin Globulin Albumin/Globulin Ratio Triglycerides Cholesterol LDL Cholesterol Direct HDL Cholesterol Vitamin B12 25-OH Vitamin D Total Folate TSH 3rd Generation Ur Random Creatinine 34 U Random Total Protein 106 Ur Random Urea Nitrogn Urine Microalbumin 489.2 H Complement C3 Complement C4 05/07/17 05/07/17 05/07/17 04:30 06:45 06:45 WBC RBC Hgb Hct MCV MCH MCHC RDW Plt Count MPV Gran % Lymph % (Auto) Phillips % (Auto) Eos % (Auto) Baso % (Auto) Gran # Lymph # (Auto) Phillips # (Auto) Eos # (Auto) Baso # (Auto) Sodium Potassium Chloride Carbon Dioxide Anion Gap BUN Creatinine Est GFR ( Amer) Est GFR (Non-Af Amer) POC Glucose (mg/dL) Random Glucose Hemoglobin A1c 6.6 H D Calcium Phosphorus Magnesium Iron 24 L TIBC 292 % Saturation 8 L Ferritin Total Bilirubin AST ALT Alkaline Phosphatase Total Protein Albumin Globulin Albumin/Globulin Ratio Triglycerides Cholesterol LDL Cholesterol Direct HDL Cholesterol Vitamin B12 25-OH Vitamin D Total Folate TSH 3rd Generation Ur Random Creatinine U Random Total Protein Ur Random Urea Nitrogn 258 Urine Microalbumin Complement C3 Complement C4 05/07/17 05/07/17 05/07/17 06:45 06:45 06:45 WBC 7.8 D RBC 3.33 L Hgb 8.8 L D Hct 27.6 L MCV 82.9 MCH 26.4 MCHC 31.9 RDW 15.8 H Plt Count 226 MPV 10.7 Gran % 66.0 Lymph % (Auto) 25.3 Phillips % (Auto) 7.4 H Eos % (Auto) 1.2 L Baso % (Auto) 0.1 Gran # 5.15 Lymph # (Auto) 2.0 Phillips # (Auto) 0.6 Eos # (Auto) 0.1 Baso # (Auto) 0.01 Sodium 145 Potassium 4.0 Chloride 109 H Carbon Dioxide 23 Anion Gap 16 BUN 29 H Creatinine 2.7 H Est GFR ( Amer) 29 Est GFR (Non-Af Amer) 24 POC Glucose (mg/dL) Random Glucose 100 Hemoglobin A1c Calcium 9.5 Phosphorus 3.6 Magnesium 2.0 Iron TIBC % Saturation Ferritin Total Bilirubin 0.6 AST 26 ALT 22 Alkaline Phosphatase 49 Total Protein 6.4 Albumin 3.5 Globulin 2.9 Albumin/Globulin Ratio 1.2 Triglycerides 94 Cholesterol 91 L LDL Cholesterol Direct 32 HDL Cholesterol 35 Vitamin B12 577 25-OH Vitamin D Total Folate > 20.0 TSH 3rd Generation 1.30 Ur Random Creatinine U Random Total Protein Ur Random Urea Nitrogn Urine Microalbumin Complement C3 124.0 Complement C4 31.1 05/07/17 05/07/17 05/07/17 06:45 07:13 11:31 WBC RBC Hgb Hct MCV MCH MCHC RDW Plt Count MPV Gran % Lymph % (Auto) Phillips % (Auto) Eos % (Auto) Baso % (Auto) Gran # Lymph # (Auto) Phillips # (Auto) Eos # (Auto) Baso # (Auto) Sodium Potassium Chloride Carbon Dioxide Anion Gap BUN Creatinine Est GFR ( Amer) Est GFR (Non-Af Amer) POC Glucose (mg/dL) 107 Random Glucose Hemoglobin A1c Calcium Phosphorus Magnesium Iron TIBC % Saturation Ferritin 40.8 Total Bilirubin AST ALT Alkaline Phosphatase Total Protein Albumin Globulin Albumin/Globulin Ratio Triglycerides Cholesterol LDL Cholesterol Direct HDL Cholesterol Vitamin B12 25-OH Vitamin D Total 35.5 Folate TSH 3rd Generation Ur Random Creatinine U Random Total Protein Ur Random Urea Nitrogn Urine Microalbumin Complement C3 Complement C4 05/07/17 05/07/17 12:04 16:24 WBC RBC Hgb Hct MCV MCH MCHC RDW Plt Count MPV Gran % Lymph % (Auto) Phillips % (Auto) Eos % (Auto) Baso % (Auto) Gran # Lymph # (Auto) Phillips # (Auto) Eos # (Auto) Baso # (Auto) Sodium Potassium Chloride Carbon Dioxide Anion Gap BUN Creatinine Est GFR ( Amer) Est GFR (Non-Af Amer) POC Glucose (mg/dL) 131 H 102 Random Glucose Hemoglobin A1c Calcium Phosphorus Magnesium Iron TIBC % Saturation Ferritin Total Bilirubin AST ALT Alkaline Phosphatase Total Protein Albumin Globulin Albumin/Globulin Ratio Triglycerides Cholesterol LDL Cholesterol Direct HDL Cholesterol Vitamin B12 25-OH Vitamin D Total Folate TSH 3rd Generation Ur Random Creatinine U Random Total Protein Ur Random Urea Nitrogn Urine Microalbumin Complement C3 Complement C4 Attending/Attestation - Attestation I have personally seen and examined this patient.: Yes I have fully participated in the care of the patient.: Yes I have reviewed all pertinent clinical information: Yes Notes (Text): This is an addendum to GI consult report dictated by Olivia Arana APN.The patient was seen and examined earlier. Medical records, lab studies, imagings were reviewed. Last 24 hours events reviewed. Agreed with the above treatment plan as outlined in Olivia Arana APN's notes the with the addition of the following on examination abdomen was soft no tenderness Atypical chest pain and dyspepsia patient has a history of anemia gastroparesis chronic kidney disease Recommend to continue Pepcid 20 mg daily Follow-up on the hemoglobin hematocrit Upper GI endoscopy to further evaluate last EGD was a close to a year ago 05/07/17 20:32
--- NOTE | 2017-05-07 10:35 | CP.PCM.CON ---
<KathyIrais - Last Filed: 05/07/17 11:50> History of Present Illness - History of Present Illness History of Present Illness: PGY-[address] Jensen Consult: Abnormal CT head Mr Herrera, 62 M, with PMH CAD s/p 7 stents on ASA/Plavix, diabetes mellitus, hypertension, chronic kidney disease and occasional memory loss per pateint, c/ o coughing and fever with R neck pain radiating to R upper extremities. Pt had new onset nausea and vomiting yesterday after taking pain medication. CXR 05/06 which did not show active disease, no inflitrates. He is currently being treated for acute bronchitis with azithromycin. His neck and R arm pain started at the onset of coughs and fever. The pain was 10/10 on admission, but now it is 6/10, comes and goes, worsen with movements. ROS: (+) N/V. (+) general weakness (+) blind Denies MEI, dizziness, tinnitis, slurring speech, choking, CP, SOB, abdominal pain, change in bowel habits, dysuria, difficulty ambulation, numbness/tingling PMH: Retinitis pigmentosa and legally blind b/l CAD s/p 7 stents on ASA/Plavix Hypercholesterolemia,Hypertension Diabetes CKD gastroparesis, chronic gastritis, Esophageal ulcer (healed) memory disturbance R leg cramps with restless leg syndrome on gabapentin and ropinirole Surgical History: Coronary artery catheterization with PCI and stenting (X8) Right femur, right arm, right patella fracture s/p right femur pinning and plate insertion Last Colonoscopy was done on Apr 30, 2016, last EGD on 10/09/16. Family History: noncontributory Social History: Non smoker. The patient does not drink alcoholic beverages. Allergy: No Known Allergies MEDS: Donepezil 10 HS, Namenda 10, Gabapentin 300, ropinirole 0.25 ASA, plavix, bystolic 5, Norvasc 10, Chlothalidone, simvastatin 80, Ezetimibe 10 Metformin 1000 bid, glipisoe 10 Bicarb 650, ferrous sulfate 325 bid protonix 40 Review of Systems - Review of Systems All systems: reviewed and no additional remarkable complaints except Review of Systems: as in HPI Past Patient History - Infectious Disease Hx of Infectious Diseases: None - Past Social History Smoking Status: Never Smoked - CARDIAC Hx Cardiac Disorders: Yes Hx Angina: No Hx Cardia Arrhythmia: No Hx Circulatory Problems: No Hx Congestive Heart Failure: No Hx Heart Murmur: No Hx Heart Transplant: No Hx Hypercholesterolemia: Yes Hx Hypertension: Yes Hx Internal Defibrillator: No Hx Mitral Valve Prolapse: No Hx Pacemaker: No Hx Peripheral Edema: No Hx Peripheral Vascular Disease: No - PULMONARY Hx Respiratory Disorders: Yes Hx Asthma: No Hx Bronchitis: No Hx Chronic Obstructive Pulmonary Disease (COPD): No Hx Emphysema: No Hx Pneumonia: Yes Hx Respiratory Aspiration: No Hx Respiratory Tract Infection: No Hx Sleep Apnea: No Hx Tuberculosis: No - NEUROLOGICAL Hx Neurological Disorder: No Hx Alzheimer's Disease: No HX Cerebrovascular Accident: No Hx Dementia: No Hx Dizziness: No Hx Meningitis: No Hx Migraine: No Hx Parkinson's Disease: No Hx Seizures: No Hx Transient Ischemic Attacks (TIA): No - HEENT Hx HEENT Problems: Yes (retinitis pigmentosis) Hx Blind: No Hx Cataracts: Yes Hx Deafness: No Hx Difficulty Chewing: No Hx Epistaxis: No Hx Glaucoma: No Hx Macular Degeneration: Yes - RENAL Hx Chronic Kidney Disease: Yes Hx Dialysis: No Hx Neurogenic Bladder: No Hx Pyelonephritis: No Hx Renal (Kidney) Cancer: No Hx Renal Failure: No - ENDOCRINE/METABOLIC Hx Endocrine Disorders: Yes Hx Adrenal Cancer: No Hx Diabetes Insipidus: No Hx Diabetes Mellitus Type 1: No Hx Diabetes Mellitus Type 2: Yes Hx Hyperthyroidism: No Hx Hypothyroidism: No Hx Systemic Lupus Erythematosus: No - HEMATOLOGICAL/ONCOLOGICAL Hx Blood Disorders: Yes Hx AIDS: No Hx Anemia: Yes Hx Cancer: No Hx Chemotherapy: No Hx Cirrhosis: No Hx Hemophilia: No Hx Hepatitis A: No Hx Hepatitis B: No Hx Hepatitis C: No Hx Human Immunodeficiency Virus (HIV): No Hx Metastesis: No Hx Shingles: No Hx Sickle Cell Disease: No Hx Unexplained Bleeding: No - INTEGUMENTARY Hx Dermatological Problems: No Hx Basil Cell: No Hx Eczema: No Hx Melanoma: No Hx Psoriasis: No Hx Squamous Cell: No - MUSCULOSKELETAL/RHEUMATOLOGICAL Hx Musculoskeletal Disorders: Yes Hx Arthritis: No Hx Back Pain: No Hx Degenerative Joint Disease: No Hx Falls: Yes Hx Fractures: Yes (Right femur, right arm, right patella.) Hx Gout: No Hx Herniated Disk: No Hx Myasthenia Gravis: No Hx Osteoarthritis: No Hx Osteomyelitis: No Hx Osteoporosis: No Hx Rhabdomyolysis: No Hx Spinal Stenosis: No Hx Unsteady Gait: No - GASTROINTESTINAL Hx Gastrointestinal Disorders: Yes Hx Colostomy: No Hx Crohn's Disease: No Hx Diverticulitis: No Hx Gall Bladder Disease: No Hx Gastroesophageal Reflux: Yes Hx Ileostomy: No Hx Liver Failure: No Hx Pancreatitis: No HX Swallowing Problems: No Hx Ulcer: No - GENITOURINARY/GYNECOLOGICAL Hx Genitourinary Disorders: No Hx Hematuria: No Hx Incontinence: No Hx Prostate Problems: No Hx Sexually Transmitted Disorders: No Hx Urinary Tract Infection: No - PSYCHIATRIC Hx Psychophysiologic Disorder: No Hx Anxiety: No Hx Bipolar Disorder: No Hx Depression: No Hx Emotional Abuse: No Hx Hallucinations: No Hx Panic Symptoms: No Hx Paranoia: No Hx Post Traumatic Stress Disorder: No Hx Psychosis: No Hx Physical Abuse: No Hx Schizophrenia: No Hx Sexual Abuse: No - SURGICAL HISTORY Hx Surgeries: Yes Hx Amputation: No Hx Appendectomy: No Hx Cardiac Catheterization: Yes Hx Cholecystectomy: No Hx Coronary Stent: Yes (x8) Hx Gastric Bypass Surgery: No Hx Hysterectomy: No Hx Joint Replacement: No Hx Kidney Transplant: No Hx Liver Transplant: No Hx Mastectomy: No Hx Musculoskeletal Surgery: Yes (right femur pinning and plate insertion) Hx Open Heart Surgery: No Hx Orthopedic Surgery: No Hx Splenectomy: No Hx Valve Replacement: No - ANESTHESIA Hx Anesthesia Reactions: No Hx Malignant Hyperthermia: No Meds Allergies/Adverse Reactions: Allergies Allergy/AdvReac Type Severity Reaction Status Date / Time No Known Allergies Allergy Verified 05/05/17 08:37 - Medications Medications: Current Medications Albuterol/Ipratropium (Duoneb 3 Mg/0.5 Mg (3 Ml) Ud) 3 ml IH [id number] [facility] Last Admin: 05/07/17 08:32 Dose: 3 ml Amlodipine Besylate (Norvasc) 10 mg PO DAILY [facility] Last Admin: 05/07/17 09:10 Dose: 10 mg Aspirin (Ecotrin) 81 mg PO DAILY [facility] Last Admin: 05/07/17 09:26 Dose: Not Given Atorvastatin Calcium (Lipitor) 40 mg PO DAILY [facility] Last Admin: 05/07/17 09:26 Dose: Not Given Chlorthalidone (Hygroton) 25 mg PO DAILY [facility] Last Admin: 05/07/17 09:24 Dose: 25 mg Clopidogrel Bisulfate (Plavix) 75 mg PO DAILY [facility] Last Admin: 05/07/17 09:28 Dose: Not Given Donepezil HCl (Aricept) 10 mg PO HS [facility] Last Admin: 05/06/17 21:54 Dose: 10 mg Ezetimibe (Zetia) 10 mg PO DAILY [facility] Last Admin: 05/07/17 09:29 Dose: Not Given Famotidine (Pepcid) 20 mg PO DAILY [facility] Last Admin: 05/07/17 09:49 Dose: Not Given Ferrous Sulfate (Feosol) 324 mg PO BID [facility] Last Admin: 05/07/17 09:26 Dose: Not Given Gabapentin (Neurontin) 300 mg PO DAILY [facility] Last Admin: 05/07/17 09:27 Dose: Not Given Glipizide (Glucotrol Xl) 10 mg PO DAILY [facility] Last Admin: 05/07/17 09:26 Dose: Not Given Hydromorphone HCl (Dilaudid) 0.5 mg IVP Q4H PRN PRN Reason: Pain, Mild (1-3) Last Admin: 05/06/17 09:12 Dose: 0.5 mg Sodium Chloride (Sodium Chloride 0.9%) 1,000 mls @ 100 mls/hr IV .Q10H [facility] Last Admin: 05/07/17 00:18 Dose: 100 mls/hr Azithromycin (Zithromax 500mg In Ns) 500 mg in 250 mls @ 167 mls/hr IVPB DAILY [facility] Last Admin: 05/07/17 09:13 Dose: 167 mls/hr Insulin Human Regular (Humulin R Low) 0 units SC ACHS [facility] PRN Reason: Protocol Last Admin: 05/07/17 08:20 Dose: Not Given Memantine (Namenda) 10 mg PO DAILY [facility] Last Admin: 05/07/17 09:26 Dose: Not Given Non-Formulary Medication (Nebivolol [Bystolic]) 10 mg PO DAILY [facility] Last Admin: 05/07/17 09:28 Dose: Not Given Ondansetron HCl (Zofran Inj) 4 mg IVP Q6H PRN PRN Reason: Nausea/Vomiting Last Admin: 05/06/17 11:50 Dose: 4 mg Ropinirole HCl (Requip) 0.25 mg PO DAILY [facility] Last Admin: 05/07/17 09:28 Dose: Not Given Sodium Bicarbonate (Sodium Bicarbonate Tab) 650 mg PO DAILY [facility] Last Admin: 05/07/17 09:29 Dose: Not Given Physical Exam - Constitutional Appears: No Acute Distress - Head Exam Head Exam: ATRAUMATIC, NORMAL INSPECTION, NORMOCEPHALIC - Eye Exam Eye Exam: EOMI, Normal appearance, PERRL. absent: Scleral icterus Pupil Exam: NORMAL ACCOMODATION - ENT Exam ENT Exam: Mucous Membranes Moist, Normal Exam - Neck Exam Additional comments: supple - Respiratory Exam Respiratory Exam: Clear to Auscultation Bilateral, NORMAL BREATHING PATTERN. absent: Rales, Rhonchi, Wheezes - Cardiovascular Exam Cardiovascular Exam: REGULAR RHYTHM, +S1, +S2 - Extremities Exam Extremities exam: Negative for: calf tenderness, pedal edema - Neurological Exam Neurological exam: Alert, Oriented x3 Additional comments: Vision: blurry Speech: No aphasia Recall: 2/3 Motor: 5/5 all 4 extremitties. ROM of upper extremities intact. Negative spurling test b/l Sensory: intact [id number] coordination: intact, no tremor rapid-alternating movement: intact gait: deferred Results - Vital Signs Recent Vital Signs: Last Vital Signs Temp 99.0 F 05/07/17 06:00 Pulse 80 05/07/17 06:00 Resp 20 05/07/17 06:00 BP 149/97 H 05/07/17 09:10 Pulse Ox 98 05/07/17 06:00 - Labs Result Diagrams: 05/07/17 06:45 05/07/17 06:45 Labs: Laboratory Results - last 24 hr 05/06/17 05/06/17 05/07/17 10:42 16:04 04:30 WBC RBC Hgb Hct MCV MCH MCHC RDW Plt Count MPV Gran % Lymph % (Auto) [place] % (Auto) Eos % (Auto) Baso % (Auto) Gran # Lymph # (Auto) [place] # (Auto) Eos # (Auto) Baso # (Auto) Sodium Potassium Chloride Carbon Dioxide Anion Gap BUN Creatinine Est GFR ( Amer) Est GFR (Non-Af Amer) POC Glucose (mg/dL) 165 H 300 H Random Glucose Calcium Phosphorus Magnesium Iron TIBC % Saturation Total Bilirubin AST ALT Alkaline Phosphatase Total Protein Albumin Globulin Albumin/Globulin Ratio Triglycerides Cholesterol LDL Cholesterol Direct HDL Cholesterol TSH 3rd Generation Ur Random Creatinine 34 U Random Total Protein 106 Ur Random Urea Nitrogn 05/07/17 05/07/17 05/07/17 04:30 06:45 06:45 WBC RBC Hgb Hct MCV MCH MCHC RDW Plt Count MPV Gran % Lymph % (Auto) [place] % (Auto) Eos % (Auto) Baso % (Auto) Gran # Lymph # (Auto) [place] # (Auto) Eos # (Auto) Baso # (Auto) Sodium 145 Potassium 4.0 Chloride 109 H Carbon Dioxide 23 Anion Gap 16 BUN 29 H Creatinine 2.7 H Est GFR ( Amer) 29 Est GFR (Non-Af Amer) 24 POC Glucose (mg/dL) Random Glucose 100 Calcium 9.5 Phosphorus 3.6 Magnesium 2.0 Iron 24 L TIBC 292 % Saturation 8 L Total Bilirubin 0.6 AST 26 ALT 22 Alkaline Phosphatase 49 Total Protein 6.4 Albumin 3.5 Globulin 2.9 Albumin/Globulin Ratio 1.2 Triglycerides 94 Cholesterol 91 L LDL Cholesterol Direct 32 HDL Cholesterol 35 TSH 3rd Generation Ur Random Creatinine U Random Total Protein Ur Random Urea Nitrogn 258 05/07/17 05/07/17 06:45 06:45 WBC 7.8 D RBC 3.33 L Hgb 8.8 L D Hct 27.6 L MCV 82.9 MCH 26.4 MCHC 31.9 RDW 15.8 H Plt Count 226 MPV 10.7 Gran % 66.0 Lymph % (Auto) 25.3 [place] % (Auto) 7.4 H Eos % (Auto) 1.2 L Baso % (Auto) 0.1 Gran # 5.15 Lymph # (Auto) 2.0 [place] # (Auto) 0.6 Eos # (Auto) 0.1 Baso # (Auto) 0.01 Sodium Potassium Chloride Carbon Dioxide Anion Gap BUN Creatinine Est GFR ( Amer) Est GFR (Non-Af Amer) POC Glucose (mg/dL) Random Glucose Calcium Phosphorus Magnesium Iron TIBC % Saturation Total Bilirubin AST ALT Alkaline Phosphatase Total Protein Albumin Globulin Albumin/Globulin Ratio Triglycerides Cholesterol LDL Cholesterol Direct HDL Cholesterol TSH 3rd Generation 1.30 Ur Random Creatinine U Random Total Protein Ur Random Urea Nitrogn Assessment & Plan - Assessment and Plan (Free Text) Plan: Mr Herrera, 62 M, with PMH CAD s/p 7 stents on ASA/Plavix, diabetes mellitus, hypertension, chronic kidney disease, memory loss (on donepezil and namenda), chronic R leg cramps/restless leg (on gabapentin and ropinirole), c/o coughing and fever with R neck pain radiating to R upper extremities. CXR 05/06 which did not show active disease, no inflitrates. He is currently being treated for acute bronchitis with azithromycin. His neck and R arm pain started at the onset of coughs and fever. The pain was 10/10 on admission, but now it is 6/10, comes and goes, worsen with movements. Physical exam shows no focal neural deficit except diminished vision, and negative spurling test b/l. CT head showed dilated ventricles and neurology was consulted. 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 generalized atropy - MRI Brain (2016) showed the same result Neck pain with R arm pain - CT neck: Cervical CT: Straigtening of cervical lordosis related to muscle spasm. Decreased mineralizion og bone. Mild degenerative changes. Schmorl's nodes at C5. No fracture or subluxation - Pending____MRI neck to r/o nerve entrapment - Pending____R shoulder x-ray - Lidoderm Memory problem - Continue home donepezil and namenda Chronic R leg cramps/restless leg - Continue home gabapentin and ropinirole s/r/d/w Dr. Jensen <Papo Jensen - Last Filed: 05/07/17 14:04> Meds - Medications Medications: Current Medications Albuterol/Ipratropium (Duoneb 3 Mg/0.5 Mg (3 Ml) Ud) 3 ml IH [id number] [facility] Last Admin: 05/07/17 13:53 Dose: Not Given Amlodipine Besylate (Norvasc) 10 mg PO DAILY [facility] Last Admin: 05/07/17 09:10 Dose: 10 mg Aspirin (Ecotrin) 81 mg PO DAILY [facility] Last Admin: 05/07/17 09:26 Dose: Not Given Atorvastatin Calcium (Lipitor) 40 mg PO DAILY [facility] Last Admin: 05/07/17 09:26 Dose: Not Given Chlorthalidone (Hygroton) 25 mg PO DAILY [facility] Last Admin: 05/07/17 09:24 Dose: 25 mg Clopidogrel Bisulfate (Plavix) 75 mg PO DAILY [facility] Last Admin: 05/07/17 09:28 Dose: Not Given Donepezil HCl (Aricept) 10 mg PO HS [facility] Last Admin: 05/06/17 21:54 Dose: 10 mg Ezetimibe (Zetia) 10 mg PO DAILY [facility] Last Admin: 05/07/17 09:29 Dose: Not Given Famotidine (Pepcid) 20 mg PO DAILY [facility] Last Admin: 05/07/17 09:49 Dose: Not Given Ferrous Sulfate (Feosol) 324 mg PO BID [facility] Last Admin: 05/07/17 09:26 Dose: Not Given Gabapentin (Neurontin) 300 mg PO DAILY [facility] Last Admin: 05/07/17 09:27 Dose: Not Given Glipizide (Glucotrol Xl) 10 mg PO DAILY [facility] Last Admin: 05/07/17 09:26 Dose: Not Given Hydromorphone HCl (Dilaudid) 0.5 mg IVP Q4H PRN PRN Reason: Pain, Mild (1-3) Last Admin: 05/06/17 09:12 Dose: 0.5 mg Sodium Chloride (Sodium Chloride 0.9%) 1,000 mls @ 100 mls/hr IV .Q10H [facility] Last Admin: 05/07/17 11:42 Dose: 100 mls/hr Azithromycin (Zithromax 500mg In Ns) 500 mg in 250 mls @ 167 mls/hr IVPB DAILY [facility] Last Admin: 05/07/17 09:13 Dose: 167 mls/hr Dextrose/Lactated Ringer's (Dextrose 5%/Lactated Ringer's) 1,000 mls @ 75 mls/ hr IV .[id number] [facility] Stop: 05/07/17 20:01 Insulin Human Regular (Humulin R Low) 0 units SC ACHS [facility] PRN Reason: Protocol Last Admin: 05/07/17 13:44 Dose: Not Given Lidocaine (Lidoderm) 1 ea TD DAILY [facility] Memantine (Namenda) 10 mg PO DAILY [facility] Last Admin: 05/07/17 09:26 Dose: Not Given Non-Formulary Medication (Nebivolol [Bystolic]) 10 mg PO DAILY [facility] Last Admin: 05/07/17 09:28 Dose: Not Given Ondansetron HCl (Zofran Inj) 4 mg IVP Q6H PRN PRN Reason: Nausea/Vomiting Last Admin: 05/06/17 11:50 Dose: 4 mg Ropinirole HCl (Requip) 0.25 mg PO DAILY [facility] Last Admin: 05/07/17 09:28 Dose: Not Given Sodium Bicarbonate (Sodium Bicarbonate Tab) 650 mg PO DAILY [facility] Last Admin: 05/07/17 09:29 Dose: Not Given Results - Vital Signs Recent Vital Signs: Last Vital Signs Temp 99.0 F 05/07/17 13:40 Pulse 91 H 05/07/17 13:40 Resp 16 05/07/17 13:40 BP 131/63 05/07/17 13:40 Pulse Ox 98 05/07/17 13:40 - Labs Result Diagrams: 05/07/17 06:45 05/07/17 06:45 Labs: Laboratory Results - last 24 hr 05/06/17 05/06/17 05/07/17 16:04 22:41 04:30 WBC RBC Hgb Hct MCV MCH MCHC RDW Plt Count MPV Gran % Lymph % (Auto) [place] % (Auto) Eos % (Auto) Baso % (Auto) Gran # Lymph # (Auto) [place] # (Auto) Eos # (Auto) Baso # (Auto) Sodium Potassium Chloride Carbon Dioxide Anion Gap BUN Creatinine Est GFR ( Amer) Est GFR (Non-Af Amer) POC Glucose (mg/dL) 300 H 155 H Random Glucose Hemoglobin A1c Calcium Phosphorus Magnesium Iron TIBC % Saturation Total Bilirubin AST ALT Alkaline Phosphatase Total Protein Albumin Globulin Albumin/Globulin Ratio Triglycerides Cholesterol LDL Cholesterol Direct HDL Cholesterol Vitamin B12 25-OH Vitamin D Total Folate TSH 3rd Generation Ur Random Creatinine 34 U Random Total Protein 106 Ur Random Urea Nitrogn Urine Microalbumin 05/07/17 05/07/17 05/07/17 04:30 04:30 06:45 WBC RBC Hgb Hct MCV MCH MCHC RDW Plt Count MPV Gran % Lymph % (Auto) [place] % (Auto) Eos % (Auto) Baso % (Auto) Gran # Lymph # (Auto) [place] # (Auto) Eos # (Auto) Baso # (Auto) Sodium Potassium Chloride Carbon Dioxide Anion Gap BUN Creatinine Est GFR ( Amer) Est GFR (Non-Af Amer) POC Glucose (mg/dL) Random Glucose Hemoglobin A1c Calcium Phosphorus Magnesium Iron 24 L TIBC 292 % Saturation 8 L Total Bilirubin AST ALT Alkaline Phosphatase Total Protein Albumin Globulin Albumin/Globulin Ratio Triglycerides Cholesterol LDL Cholesterol Direct HDL Cholesterol Vitamin B12 25-OH Vitamin D Total Folate TSH 3rd Generation Ur Random Creatinine U Random Total Protein Ur Random Urea Nitrogn 258 Urine Microalbumin 489.2 H 05/07/17 05/07/17 05/07/17 06:45 06:45 06:45 WBC 7.8 D RBC 3.33 L Hgb 8.8 L D Hct 27.6 L MCV 82.9 MCH 26.4 MCHC 31.9 RDW 15.8 H Plt Count 226 MPV 10.7 Gran % 66.0 Lymph % (Auto) 25.3 [place] % (Auto) 7.4 H Eos % (Auto) 1.2 L Baso % (Auto) 0.1 Gran # 5.15 Lymph # (Auto) 2.0 [place] # (Auto) 0.6 Eos # (Auto) 0.1 Baso # (Auto) 0.01 Sodium 145 Potassium 4.0 Chloride 109 H Carbon Dioxide 23 Anion Gap 16 BUN 29 H Creatinine 2.7 H Est GFR ( Amer) 29 Est GFR (Non-Af Amer) 24 POC Glucose (mg/dL) Random Glucose 100 Hemoglobin A1c 6.6 H D Calcium 9.5 Phosphorus 3.6 Magnesium 2.0 Iron TIBC % Saturation Total Bilirubin 0.6 AST 26 ALT 22 Alkaline Phosphatase 49 Total Protein 6.4 Albumin 3.5 Globulin 2.9 Albumin/Globulin Ratio 1.2 Triglycerides 94 Cholesterol 91 L LDL Cholesterol Direct 32 HDL Cholesterol 35 Vitamin B12 577 25-OH Vitamin D Total Folate > 20.0 TSH 3rd Generation Ur Random Creatinine U Random Total Protein Ur Random Urea Nitrogn Urine Microalbumin 05/07/17 05/07/17 05/07/17 06:45 06:45 07:13 WBC RBC Hgb Hct MCV MCH MCHC RDW Plt Count MPV Gran % Lymph % (Auto) [place] % (Auto) Eos % (Auto) Baso % (Auto) Gran # Lymph # (Auto) [place] # (Auto) Eos # (Auto) Baso # (Auto) Sodium Potassium Chloride Carbon Dioxide Anion Gap BUN Creatinine Est GFR ( Amer) Est GFR (Non-Af Amer) POC Glucose (mg/dL) 107 Random Glucose Hemoglobin A1c Calcium Phosphorus Magnesium Iron TIBC % Saturation Total Bilirubin AST ALT Alkaline Phosphatase Total Protein Albumin Globulin Albumin/Globulin Ratio Triglycerides Cholesterol LDL Cholesterol Direct HDL Cholesterol Vitamin B12 25-OH Vitamin D Total 35.5 Folate TSH 3rd Generation 1.30 Ur Random Creatinine U Random Total Protein Ur Random Urea Nitrogn Urine Microalbumin Attending/Attestation - Attestation I have personally seen and examined this patient.: Yes I have fully participated in the care of the patient.: Yes I have reviewed all pertinent clinical information: Yes
[2017-05-07] MEDS ORDERED: Dextrose 5%/Lactated Ringer's 1,000 ML IV SCH (13:00)
[2017-05-07] MEDS ORDERED: Propofol 10 mg/ml Inj (20 ML) ONE (13:08)
[2017-05-07] MEDS ORDERED: Etomidate 20 mg/10ml Inj IV ONE (13:08)
[2017-05-07 13:20] LABS: FOLATE > 20.0 ng/mL
--- NOTE | 2017-05-07 14:04 | MRI ---
PROCEDURE: MR CERVICAL SPINE WITHOUT CONTRAST HISTORY: r/o nerve entrapment COMPARISON: None available. TECHNIQUE: Multiecho multiplanar sequences were performed through the cervical spine without the use of intravenous contrast. FINDINGS: Stable straightening of the upper mid cervical spine is appreciated with the cervicothoracic junction curvature remaining normal. No interval fracture or spondylolisthesis or suspicious matter signal change identified. Diffuse disc desiccation identified with adequate preservation of disc heights noted diffusely. Prevertebral paraspinal soft tissues appear diffusely unremarkable. Cervical spinal cord appears grossly normal in caliber overall though subtle reactive cord signal signal changes are in question at the C6 and C7 levels. Visualized upper thoracic spinal cord segment appears unremarkable down to T4 proximally. C2-C3: No disc herniation, spinal canal stenosis or neural foraminal narrowing. C3-C4: No disc herniation identified. Moderate right and mild left degenerative neural foraminal stenoses identified. No significant central stenosis. Limited facet joint degenerative changes are appreciated. C4-C5: No disc herniation is appreciated although mild degenerative disc bulging is appreciated and encroaching the ventral nerve roots without significant central canal stenosis resulting. Limited facet joint degenerative changes are appreciated. Mild right and borderline left degenerative neural foraminal stenoses are identified. C5-C6: No disc herniation is appreciate however a minimal disc osteophyte complex is seen combining with right-sided splinting or left convex scoliosis here resulting in mild central stenosis greater the left and right sides with mild degenerative neural foraminal stenoses noted bilaterally. C6-C7: An additional disc osteophyte complex is appreciated resulting in a moderate central canal stenosis with mild reactive signal changes identified at the C6 cervical cord level including C6-7 level. Mild distal bilateral neural foraminal stenoses are degenerative in etiology. No definitive disc herniation identified at this time. C7-T1: No disc herniation, central canal or neural foraminal stenosis appreciated although trace cord signal changes are questioned superiorly. OTHER FINDINGS: None. IMPRESSION: Moderate degenerative stenoses at C6-7 and C5-6 are appreciated due to disc osteophyte complexes with limited cord reaction suggested at the C6 and superior most C7 cord levels without severe stenosis appreciable. No definite disc herniation appreciable. Splinting toward the right versus dextroscoliosis is in question. Follow-up contrast MRI of the cervical spine may be helpful for further characterization of the cervical spinal cord though the reactive changes noted above are likely degenerative in etiology.
[2017-05-07] MEDS: Lidocaine 5% Patch TD SCH ×2 (14:22→18:57)
--- NOTE | 2017-05-07 14:22 | RAD ---
PROCEDURE: Radiographs of the Right Shoulder HISTORY: persistent pain COMPARISON: No prior. FINDINGS: BONES: No acute fracture. JOINTS: Unremarkable. SOFT TISSUES: Normal. OTHER FINDINGS: None. IMPRESSION: No demonstrated fracture or dislocation.
[2017-05-07 15:18] LABS: COMPLEMENT C4 31.1 mg/dL (14.0-44.0)
[2017-05-07] MEDS ORDERED: Sodium Chloride 0.9% 1,000 ML IV SCH (15:30)
[2017-05-08] MEDS: Albuterol-Ipratrop 3 mg / 0.5 (3 ml) UD IH SCH ×4 (02:15→19:14)
--- NOTE | 2017-05-08 07:10 | CON ---
DATE: NEPHROLOGY CONSULTATION HISTORY OF PRESENT ILLNESS: A 62-year-old male with past medical history of hypertension; diabetes; CAD, status post 8 stents; CKD stage IV presented initially to the ED with coughing, fever and right-sided neck pain radiating to right arm; admitted for acute bronchitis/pneumonia. Nephrology is being consulted for advanced CKD care. Patient reports that his cough and subjective fever started at the same time as the neck and arm pain; pain was worse on admission, but has improved; worsened with movement. Patient has been getting CKD care with his private rn advice, Dr. Skinner; last visited rn advice last month, at which time sodium bicarbonate was added to his medication regimen. Patient reports that he does not exactly know the etiology of his CKD; last serum creatinine was around 3.0 last month and was 2.7 several months before that. PAST MEDICAL HISTORY: As above. Patient also has restless legs syndrome, on gabapentin and ropinirole, also with reported short-term memory impairment, also with history of esophageal ulcers. FAMILY HISTORY: . 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 REVIEW OF SYSTEMS CONSTITUTIONAL: Patient has been eating well. No loss of appetite. HEENT: Patient with chronic blurry vision secondary to no difficulty swallowing. RESPIRATORY: Cough, improved. CARDIOVASCULAR: Reports intermittent feeling of chest pressure, sometimes lasting as long as 1 hour, not necessarily related to exertion. GASTROINTESTINAL: Has been having nausea and had several episodes of vomiting during this admission. GI is following. GENITOURINARY: Denies any difficulty urinating. Does have urinary urgency. MUSCULOSKELETAL: . NEUROLOGIC: History of restless legs. SKIN: . PHYSICAL EXAMINATION GENERAL: No distress. Lying comfortably in bed. VITAL SIGNS: This afternoon, blood pressure 141/78, heart rate 82, respiration 16, temperature 99.0, O2 sat 100%. HEENT: Moist mucous membranes. Nonicteric. No cervical lymphadenopathy. No carotid bruit. RESPIRATORY: Lungs, clear to auscultation bilaterally. No rales. No rhonchi. No wheezes. CARDIOVASCULAR: Heart sounds S1 and S2 normal. No murmurs. No gallops. No rubs. GASTROINTESTINAL: Abdomen is soft, nontender, nondistended. GENITOURINARY: No bladder distention. EXTREMITIES: No leg edema. SKIN: Warm. No cyanosis. PSYCHIATRIC: Normal mood, normal affect. NEUROLOGIC: No obvious tremor. LABORATORY DATA: This morning CBC, WBC 7.8, hemoglobin 8.8, hematocrit 27.6, platelets 226,000. Chemistry panel: Sodium 145, potassium 4.0, chloride 109, bicarbonate 23, BUN 29, creatinine 2.7, glucose 100, calcium 9.5, phosphorus 3.6, magnesium 2.0, albumin 3.5. Iron studies: Iron 24, TIBC 292, saturation 80%, ferritin 40, 25-hydroxy vitamin D level 35.5. Renal ultrasound from approximately six months ago, echogenicity seemed preserved, but kidney sizes are slightly small, right kidney measuring 8.5 cm, left 8.9 cm. ASSESSMENT AND PLAN 1. Chronic kidney disease stage IV. 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 Avoid nephrotoxic agents. Avoid nonsteroidal antiinflammatory drugs, phosphate-containing enema, etc. 2. Hypertensive chronic kidney disease. Blood pressure is slightly elevated above goal of less than 130/80 for proteinuric chronic kidney disease; patient currently on amlodipine 10 mg daily, chlorthalidone 25 mg daily and nebivolol 10 mg daily. Patient is, however, getting intravenous fluids. We will reassess blood pressure after intravenous fluid is stopped. 3. Anemia: Has iron deficiency on top of anemia of chronic kidney disease; we will start intravenous iron loading; will likely need Aranesp as well. 4. Chronic kidney disease, mineral bone disorder. PTH level not available. 25-hydroxy vitamin D level is replete. Phosphorus currently is acceptable. Continue sodium bicarbonate 650 mg twice a day. Bicarbonate level is at goal of 22 to 24. Thank you for this referral. We will be following closely. Vasquez Rosales MD
--- NOTE | 2017-05-08 07:27 | PN ---
DATE: 05/07/2017 REFERRING PHYSICIAN: Dr. Hoffman. SUBJECTIVE: The patient is lying on the desk of table. Night was unremarkable. Dropped his hemoglobin. No nausea. No vomiting. No leg pain. No leg swelling. OBJECTIVE: GENERAL: In no acute distress. VITAL SIGNS: Temp is 99, heart rate is 82, respiratory rate is 16, blood pressure 141/78, pulse ox 100% on 3 L nasal cannula. HEENT: Moist mucous membrane. Crowded airway. NECK: Supple. No JVD. LUNGS: Have fair airflow with rhonchi. HEART: S1, S2. ABDOMEN: Soft, nontender, no organomegaly. EXTREMITIES: No edema. NEUROLOGIC: Awake, alert. Follows simple commands. MEDICATIONS: He is on Aricept 10 mg daily, IV fluid dextrose with lactated Ringer 75 mL/hour, Dilaudid 0.5 mg q.4 hours p.r.n., DuoNeb q.6 hours, Ecotrin 81 mg daily, ferrous sulfate 324 mg twice a day, glipizide 10 mg daily, insulin coverage, hydrochlorothiazide 25 mg daily, lidocaine patch to affect area, Lipitor 10 mg daily, Namenda 10 mg daily, Bystolic 10 mg daily, Neurontin 300 mg daily, Pepcid 20 mg daily, Plavix 75 mg daily, Reglan 5 mg on morning, Requip 0.25 mg daily, sodium bicarbonate p.o. daily, IV fluid normal saline, Zanaflex 4 mg at bedtime, Zetia 10 mg daily, Zithromax 500 mg daily, and Zofran 4 mg IV q.6 hours p.r.n. LABORATORY DATA: Shows hemoglobin 8.8, hematocrit 27.6, WBC 7.8, platelet is 226. Blood sugar is 102. Ferritin is 40. Sodium 145, potassium 4.0, chloride 109, bicarbonate 23, BUN 29, creatinine 2.7, hemoglobin A1c 6.6, calcium 9.5, magnesium 2.0, iron is 24. AST 26, ALT 22, alk phos is 49. Albumin is 3.5. Folate is more than 20. Microbiology, blood culture has been negative. Has endoscopy done, report is pending. IMPRESSION AND PLAN: Status post viral syndrome with acute bronchitis, coronary artery disease, diabetes, anemia, iron deficiency, renal failure. Gastrointestinal workup is in progress for H and H drop. Pulmonary point of view, doing okay. Continue bronchodilator. Keep head at 45 degrees, antibiotics. Followup labs in the morning. Thank you and we will follow with you. Anyi Borja MD
[2017-05-08] MEDS ORDERED: Iohexol 240 (50 ml) ONE (08:33)
[2017-05-08] MEDS: Insulin Reg-LOW-Coverage SC SCH ×4 (08:38→22:15)
[2017-05-08] MEDS: GlipiZIDE 10 mg SR Tab PO SCH (10:30)
[2017-05-08] MEDS: Lidocaine 5% Patch TD SCH (10:30)
--- NOTE | 2017-05-08 10:30 | US ---
HISTORY: abdominal pain COMPARISON: 10/26/2016 renal ultrasound TECHNIQUE: Sonographic evaluation of the abdomen. FINDINGS: LIVER: Measures 9.8 x 13.6. Cm. Patent portal vein. Portal venous flow: Hepatopetal. Heterogeneous echogenicity of the liver parenchyma. No mass. No intrahepatic bile duct dilatation. GALLBLADDER: Unremarkable. No gallstones. COMMON BILE DUCT: Measures 3.7 mm. No stones. No dilatation. PANCREAS: Unremarkable as visualized. No mass. No ductal dilatation. RIGHT KIDNEY: Measures 4.4 x 9.2cm. Complex cyst/ mass upper pole right kidney 7 x 10 mm. This was not seen previously although they could be for technical reasons. Simple cyst lower pole less than 5 mm. LEFT KIDNEY: Measures 4.5 x 9.3cm. Normal echogenicity. No calculus, mass, or hydronephrosis. SPLEEN: Normal in size and contour. No mass. AORTA: No aneurysmal dilatation. IVC: Unremarkable. OTHER FINDINGS: None. IMPRESSION: Subcentimeter complex cyst/ mass right kidney. Follow-up recommended. Multiphasic pre and postcontrast CT attention right kidney.
[2017-05-08] MEDS: Sodium Chloride 0.9% 1,000 ML IV SCH ×2 (10:42→16:55)
[2017-05-08] MEDS: Non Formulary Medication (Nebivolol [Bystolic] 10 MG) PO SCH (10:48)
[2017-05-08] MEDS: Azithromycin 500MG/NS 250ml 500 MG/250 ML BAG IVPB SCH (10:49)
--- NOTE | 2017-05-08 12:13 | PN ---
DATE: 05/08/2017 PULMONARY PROGRESS REPORT REFERRING PHYSICIAN: Gill Hoffman MD SUBJECTIVE: The patient is lying in the bed, status post abdominal . Night was unremarkable. No headache. . No nausea or vomiting. No diarrhea. No leg pain or leg swelling. OBJECTIVE: GENERAL: No acute distress. VITAL SIGNS: Temperature is 98, heart rate is 65, respiratory rate is 18, blood pressure 138/90, pulse oximetry is 96% on room air. HEENT: Moist mucous membranes. Crowded airway. NECK: Supple. No JVD. LUNGS: Have fair airflow with rhonchi. HEART: S1, S2. ABDOMEN: Soft, nontender, no organomegaly. EXTREMITIES: No edema. NEUROLOGIC: Awake, alert. Follows simple commands. MEDICATIONS: He is on Aricept 10 mg at bedtime, Dilaudid 0.5 mg q. 4 hours p.r.n., DuoNeb q.6 hours, Ecotrin 81 mg daily, ferrous sulfate 324 mg twice a day, glipizide 10 mg daily, insulin coverage, 25 mg daily, Lidoderm patch to affect area, Lipitor 40 mg daily, Namenda 10 mg daily, Bystolic 10 mg daily, gabapentin 300 mg daily, Norvasc 10 mg daily, Pepcid 20 mg daily, Plavix 75 mg daily, Reglan 5 mg before meals, Requip 0.25 mg daily, sodium bicarbonate 650 mg daily, IV fluid normal saline 100 mL per hour, Zanaflex 4 mg at bedtime, Zetia 10 mg daily, Zithromax 500 mg daily, and Zofran on a p.r.n. basis. LABORATORY DATA: Reviewed and shows blood sugar this morning 106. Microbiology: Blood cultures have been negative. IMPRESSION AND PLAN: Probably has the viral syndrome with acute bronchitis, coronary artery disease, diabetes, gastroparesis, anemia, iron deficiency, renal failure. Pulmonary point of view, he is doing okay. Keep head at 45 degrees. Continue bronchodilator, gastric prophylaxis, deep venous thrombosis prophylaxis. Followup labs in the morning. Nephrology and GI followup. Fall precaution. Thank you and we will follow with you. Anyi Borja MD [facility] # [id number]
--- NOTE | 2017-05-08 21:20 | CT ---
EXAM: CT Abdomen and Pelvis With Intravenous Contrast EXAM DATE/TIME: 05/07/2017 8:34 PM CLINICAL HISTORY: 62 years old, male; Pain; Other: Anemia, abdominal discomfort, weightloss TECHNIQUE: Axial computed tomography images of the abdomen and pelvis with intravenous contrast. All CT scans at this facility use one or more dose reduction techniques, viz.: automated exposure control; ma/kV adjustment per patient size (including targeted exams where dose is matched to indication; i.e. head); or iterative reconstruction technique. Coronal and sagittal reformatted images were created and reviewed. CONTRAST: 32 mL of OMNI administered intravenously. COMPARISON: Prior abdominal ultrasound of 2017-05-08 FINDINGS: LIMITATIONS: Streak artifact from metallic hardware in the right hip. Moderate streak/motion artifact. LOWER THORAX: Findings suspicious for a patchy pneumonia in the right lung base. There are patchy areas of groundglass consolidation seen. Scattered noncalcified pulmonary nodules incidentally noted in the lung bases bilaterally, the largest, in the left lung base, measuring 7 mm, image 14/series 5. In low-risk patients (minimal or absent history of smoking or other known risk factors), recommend chest CT follow-up at 3-6 months. If stable consider an additional follow-up CT at 18-24 months. For high-risk patients (history of smoking or other known risk factors), recommend chest CT follow-up in 3-6 months and then at 18-24 months. Heart appears mildly to moderately enlarged. Small pericardial effusion. ABDOMEN: LIVER: No acute abnormality of the liver identified. GALLBLADDER AND BILE DUCTS: No CT evidence of acute cholecystitis. No evidence of significant biliary ductal dilatation. PANCREAS: No CT evidence of acute pancreatitis. SPLEEN: No acute abnormality of the spleen identified. ADRENALS: No acute abnormality of the adrenal glands identified. KIDNEYS AND URETERS: Bilateral perinephric stranding, a nonspecific finding. STOMACH AND BOWEL: No acute abnormality of the stomach, small bowel or colon identified. No evidence of bowel obstruction. APPENDIX:Normal appendix is not seen, however, there are no significant inflammatory changes visualized in the expected location of the appendix to suggest appendicitis. Recommend clinical correlation. PELVIS: BLADDER: No acute abnormality of the bladder identified. REPRODUCTIVE: No acute abnormality of the reproductive organs is seen. ABDOMEN and PELVIS: INTRAPERITONEAL SPACE: No evidence of free intraperitoneal air or fluid. BONES/JOINTS: Metallic hardware in the right hip. Bony structures appear demineralized. SOFT TISSUES: Focus of heterotopic ossification in the soft tissues anterior to the right hip. Lipoma incidentally noted in the left abdominal wall. VASCULATURE: No evidence of abdominal aortic aneurysm. No evidence of periaortic hemorrhage. LYMPH NODES: No evidence of diffuse lymphadenopathy. IMPRESSION: - Findings suspicious for a patchy pneumonia in the right lung base. - Otherwise, no evidence of significant acute process on this unenhanced exam. - See above for remaining findings.
--- NOTE | 2017-05-08 22:03 | CP.PCM.PN ---
Subjective - Date & Time of Evaluation Date of Evaluation: 05/08/17 Time of Evaluation: 10:00 - Subjective Subjective: Patient reports abd pain and nausea improved; R neck/arm pain also improved but still present; Objective - Vital Signs/Intake and Output Vital Signs (last 24 hours): Temp Pulse Resp BP Pulse Ox 98.1 F 68 20 135/84 96 05/08/17 18:00 05/08/17 18:00 05/08/17 18:00 05/08/17 18:00 05/07/17 18:00 - Medications Medications: Current Medications Albuterol/Ipratropium (Duoneb 3 Mg/0.5 Mg (3 Ml) Ud) 3 ml IH [id number] [facility] Last Admin: 05/08/17 19:14 Dose: 3 ml Amlodipine Besylate (Norvasc) 10 mg PO DAILY [facility] Last Admin: 05/08/17 10:31 Dose: 10 mg Aspirin (Ecotrin) 81 mg PO DAILY [facility] Last Admin: 05/08/17 10:31 Dose: 81 mg Atorvastatin Calcium (Lipitor) 40 mg PO DAILY [facility] Last Admin: 05/08/17 10:31 Dose: 40 mg Chlorthalidone (Hygroton) 25 mg PO DAILY [facility] Last Admin: 05/08/17 10:51 Dose: Not Given Clopidogrel Bisulfate (Plavix) 75 mg PO DAILY [facility] Last Admin: 05/08/17 10:30 Dose: 75 mg Donepezil HCl (Aricept) 10 mg PO HS [facility] Last Admin: 05/07/17 22:19 Dose: 10 mg Ezetimibe (Zetia) 10 mg PO DAILY [facility] Last Admin: 05/08/17 10:31 Dose: 10 mg Famotidine (Pepcid) 20 mg PO DAILY [facility] Last Admin: 05/08/17 10:31 Dose: 20 mg Ferrous Sulfate (Feosol) 324 mg PO BID [facility] Last Admin: 05/08/17 17:36 Dose: 324 mg Gabapentin (Neurontin) 300 mg PO DAILY [facility] Last Admin: 05/08/17 10:31 Dose: 300 mg Glipizide (Glucotrol Xl) 10 mg PO DAILY [facility] Last Admin: 05/08/17 10:30 Dose: 10 mg Hydromorphone HCl (Dilaudid) 0.5 mg IVP Q4H PRN PRN Reason: Pain, Mild (1-3) Last Admin: 05/06/17 09:12 Dose: 0.5 mg Azithromycin (Zithromax 500mg In Ns) 500 mg in 250 mls @ 167 mls/hr IVPB DAILY [facility] Last Admin: 05/08/17 10:49 Dose: 167 mls/hr Sodium Chloride (Sodium Chloride 0.9%) 1,000 mls @ 40 mls/hr IV .Q24H [facility] Last Admin: 05/08/17 16:55 Dose: 40 mls/hr Iron Sucrose 100 mg/ Sodium (Chloride) 105 mls @ 210 mls/hr IVPB DAILY [facility] Stop: 05/17/17 10:29 Last Admin: 05/08/17 13:31 Dose: 210 mls/hr Insulin Human Regular (Humulin R Low) 0 units SC ACHS [facility] PRN Reason: Protocol Last Admin: 05/08/17 17:13 Dose: 2 units Lidocaine (Lidoderm) 1 ea TD DAILY [facility] Last Admin: 05/08/17 10:30 Dose: 1 ea Memantine (Namenda) 10 mg PO DAILY [facility] Last Admin: 05/08/17 10:31 Dose: 10 mg Metoclopramide HCl (Reglan) 5 mg IVP AC [facility] Last Admin: 05/08/17 17:12 Dose: 5 mg Non-Formulary Medication (Nebivolol [Bystolic]) 10 mg PO DAILY [facility] Last Admin: 05/08/17 10:48 Dose: 10 mg Ondansetron HCl (Zofran Inj) 4 mg IVP Q6H PRN PRN Reason: Nausea/Vomiting Last Admin: 05/06/17 11:50 Dose: 4 mg Ropinirole HCl (Requip) 0.25 mg PO DAILY [facility] Last Admin: 05/08/17 10:31 Dose: 0.25 mg Sodium Bicarbonate (Sodium Bicarbonate Tab) 650 mg PO DAILY [facility] Last Admin: 05/08/17 10:30 Dose: 650 mg Tizanidine HCl (Zanaflex) 4 mg PO HS [facility] Last Admin: 05/07/17 22:19 Dose: 4 mg - Labs Labs: 05/07/17 06:45 05/07/17 06:45 PT 11.1 SECONDS (9.4-12.5) 05/05/17 16:50 INR 0.97 (0.93-1.08) 05/05/17 16:50 APTT 30.4 Seconds (25.1-36.5) 05/05/17 16:50 - Constitutional Appears: Non-toxic, No Acute Distress - Eye Exam Eye Exam: Normal appearance - ENT Exam ENT Exam: Mucous Membranes Moist - Respiratory Exam Respiratory Exam: Clear to Ausculation Bilateral. absent: Respiratory Distress - Cardiovascular Exam Cardiovascular Exam: RRR, +S1, +S2 - GI/Abdominal Exam GI & Abdominal Exam: Soft. absent: Distended, Tenderness - Extremities Exam Additional comments: no leg edema - Neurological Exam Neurological Exam: Alert, Awake - Psychiatric Exam Psychiatric exam: Normal Mood. absent: Agitated - Skin Skin Exam: Warm. absent: Cyanosis Assessment and Plan (1) CKD (chronic kidney disease) stage 4, GFR 15-29 ml/min Assessment & Plan: Stable renal function; proteinuric kidney disease likely secondary to diabetic nephropathy; unclear why patient was taken off SANTINO inhibitor by primary licensed mortician (patient is unaware of the reason) but will defer to him regarding this; otherwise, goal is maintain adequate glycemic and BP control (<130/80); -continue sodium bicarb 650 mg bid; Status: Chronic (2) Hypertensive chronic kidney disease with stage 1 through stage 4 chronic kidney disease, or unspecified chronic kidney disease Assessment & Plan: BP elevated; will decrease IVF to maintenance rate of 40 cc/hr; otherwise, should continue with amlodipine and bystolic; holding chlorthalidone until patient has better PO intake; Status: Acute (3) Anemia of renal disease Assessment & Plan: With iron deficiency as well; starting IV iron 100 mg daily, should continue as outpatient for total of 10 doses; may need aranesp thereafter; Status: Acute (4) Chronic kidney disease-mineral and bone disorder Assessment & Plan: Awaiting PTH level; will start calcitriol if needed; Status: Acute
--- NOTE | 2017-05-08 22:07 | PN ---
DATE: SUBJECTIVE: The patient is a 62-year-old male. The patient is seen and examined at the bedside, looking comfortable. Pain is getting better. Night was unremarkable. No fever. No chills. No nausea, vomiting, or diarrhea. No headache or dizziness. No chest pain or palpitation. PHYSICAL EXAMINATION: VITAL SIGNS: Temperature 98, pulse 65, respiratory rate 18, blood pressure 120/90, and pulse oximetry 96% on room air. HEENT: Head: Normocephalic, atraumatic. Eyes: PERRLA. Extraocular muscles are intact. Conjunctivae clear. Nose patent. Mucous membranes are moist. NECK: Supple. No carotid bruits, JVD, or thyromegaly. CHEST: Clear to auscultation. HEART: S1 and S2 positive. ABDOMEN: Soft, nontender, no organomegaly. EXTREMITIES: No edema. No cyanosis. NEUROLOGIC: The patient is awake and alert. Follows simple commands. MEDICATIONS: Aricept, Dilaudid, DuoNeb, Ecotrin, glipizide, insulin, Lidoderm patch, Lipitor, Namenda, Bystolic, gabapentin, Norvasc, Pepcid, Reglan, Requip, sodium bicarbonate, IV fluid, Zanaflex, Zetia, erythromycin, and Zofran. LABORATORY DATA: We do not have recent labs today, but I reviewed the old labs. ASSESSMENT AND PLAN: Mr. Anyi Herrera has viral syndrome with acute bronchitis; coronary artery disease; insulin-dependent diabetes mellitus, not very well controlled; gastroparesis due to diabetic complications; iron-deficiency anemia; renal failure. Nephrology is on the case. GI and DVT prophylaxes. CAT scan of the abdomen and pelvis done, results are pending. Planned for upper endoscopy. Gill Hoffman MD
[2017-05-09] MEDS: Albuterol-Ipratrop 3 mg / 0.5 (3 ml) UD IH SCH ×4 (04:00→20:00)
--- NOTE | 2017-05-09 04:06 | PN ---
DATE:05/08/2017 SUBJECTIVE: The patient is on a pureed diet, tolerating. No complaints of any abdominal pain. PHYSICAL EXAMINATION: VITAL SIGNS: Temperature is 98.1, blood pressure 135/84, pulse 68, respiration is 20. HEENT: Atraumatic, anicteric. NECK: Supple. HEART: S1 and S2 heard. LUNGS: Bilateral air entry present. ABDOMEN: Soft. There is no tenderness. EXTREMITIES: No edema, no cyanosis. NEUROLOGIC: Alert, oriented. LABORATORY DATA: No recent labs today. The patient has a CT scan of the abdomen and pelvis done that was reviewed suggestive of possible pneumonia, right base. No mass lesion noticed intraabdominally. A small scattered noncalcified pulmonary nodule is noticed. IMPRESSION: This is a 62-year-old patient admitted with worsening of the worsening renal function and atypical chest apin . The patient was also anemic. Had an endoscopy done suggestive of gastroparesis. Colonoscopy done earlier negative for a chronic source of blood loss. A CT was also negative. I would recommend pureed diet and low-dose H2 blockers. Followup of the hemoglobin and hematocrit. Anemia is probably multifactorial. Continue pulmonary followup, and cardiac and renal followup. Thank you very much for allowing us to participate in the care of the patient. Jefferson Bloom MD [facility]
[2017-05-09] MEDS: Insulin Reg-LOW-Coverage SC SCH ×4 (08:12→22:39)
[2017-05-09] MEDS: GlipiZIDE 10 mg SR Tab PO SCH (09:55)
[2017-05-09] MEDS: Azithromycin 500MG/NS 250ml 500 MG/250 ML BAG IVPB SCH (09:58)
--- NOTE | 2017-05-09 14:49 | PN ---
DATE: 05/09/2017 SUBJECTIVE: The patient denies any chest pain, shortness of breath or any palpitation. OBJECTIVE: GENERAL: Not in apparent distress. Feels a lot better. VITAL SIGNS: As follows: Temperature afebrile, heart rate 80, blood pressure 148/90. HEENT: PERRLA, intact. NECK: Supple. No carotid bruit or thyromegaly. CHEST: Clear to auscultation. HEART: S1, S2 regular. ABDOMEN: Soft. EXTREMITIES: Clubbing and cyanosis negative. LABORATORY DATA: Blood workup as follows: WBC 7.8, hemoglobin 8.8, hematocrit 27.6 and platelet count 226. Chemistry shows sodium 145, potassium 4, chloride 109, carbon dioxide 23, anion gap of 16, BUN 29, creatinine 2.7. Total cholesterol 91, LDL 32, HDL 35, triglyceride 95, TSH 1.3. IMPRESSION: Status post , atypical chest pain, so far no evidence of myocardial infarction, rule out pneumonia, acute bronchitis, viral syndrome, history of coronary artery disease, status post stenting, history of myocardial infarction, chronic renal insufficiency, diabetes, hypertension, hyperlipidemia. Last stress test, 06/15/2016, shows abnormal myocardial perfusion study, fixed defect, no ischemia noted, ejection fraction 48%. Patient had also echocardiography done, 06/15/2016, ejection fraction 45%, [id number] hypokinesis in the anteroseptal apical wall, mild mitral and mild tricuspid regurgitation. RECOMMENDATIONS: We will repeat chest x-ray today, continue broad-spectrum antibiotics, anemia workup, monitor renal function closely, continue atorvastatin, avoid nephrotoxic medication, aggressive control of blood pressure, blood pressure systolic is still in 114 and the diastolic 90. We will increase 25 b.i.d. hydralazine. We will get chest x-ray PA and lateral today at 3:00 p.m. We will repeat the blood workup tomorrow. We will follow with you. Thank you, Dr. Hoffman, for providing us the opportunity in taking care of patient. Anyi Jacobo MD
--- NOTE | 2017-05-09 15:59 | RAD ---
HISTORY: F/U pneumonia and compare COMPARISON: 05/06/2017 TECHNIQUE: Chest PA and lateral FINDINGS: LUNGS: No active pulmonary disease. PLEURA: No significant pleural effusion identified. No pneumothorax apparent. CARDIOVASCULAR: No radiographic findings to suggest acute or significant cardiovascular disease. OSSEOUS STRUCTURES: No significant abnormalities. VISUALIZED UPPER ABDOMEN: Normal. OTHER FINDINGS: None. IMPRESSION: No active disease. No significant interval change compared to the prior examination(s).
[2017-05-09] MEDS: Lidocaine 5% Patch TD SCH (16:10)
[2017-05-09] MEDS: Non Formulary Medication (Nebivolol [Bystolic] 10 MG) PO SCH (18:20)
[2017-05-09] MEDS: Sodium Chloride 0.9% 1,000 ML IV SCH (22:49)
[2017-05-10 00:27] VITALS: RESP 20
--- NOTE | 2017-05-10 01:00 | PN ---
DATE: The patient is a 62-year-old male. SUBJECTIVE: The patient is seen and examined at the bedside, looking comfortable. No nausea, vomiting, or diarrhea. No hematuria or hematochezia. No swelling of the legs. No chest pain or palpitation. Night was unremarkable. PHYSICAL EXAMINATION VITAL SIGNS: Temperature 98.6, heart rate 80, blood pressure 148/90, and respiratory rate is 18. HEENT: Head: Normocephalic, atraumatic. Eyes: PERRLA. Extraocular movements are intact. Conjunctivae clear. Nose patent. Mucous membranes are moist. NECK: Supple. No carotid bruit. No JVD or thyromegaly. CHEST: Bilaterally symmetrical. HEART: S1 and S2 positive. LUNGS: Clear to auscultation. ABDOMEN: Soft. Bowel sounds are positive. No organomegaly. EXTREMITIES: No edema. No cyanosis. NEUROLOGIC: The patient is awake and alert. Moving all 4 extremities with no focal deficit. LABORATORY DATA: White blood cells 7.8 - on admission it was 12.8; hemoglobin 8.8, hematocrit 27.6, and platelets 226. Glucose 183-226, MEDICATIONS: Hydralazine, Aricept, Dilaudid, DuoNeb, Ecotrin, Feosol, glipizide, insulin, chlorthalidone, iron, Lidoderm, Lipitor, Namenda, Bystolic, Neurontin, Norvasc, Pepcid, Plavix, Reglan, ReQuip, bicarbonate, and Ecotrin. ASSESSMENT AND PLAN: Mr. Anyi Herrera is a 62-year-old male with a history of multiple medical problems, who came with chest pain - atypical chest pain as per the occupational therapy aide. No evidence of myocardial infarction, viral bronchitis, history of coronary artery disease - status post stenting, history of myocardial infarction, chronic renal insufficiency, diabetes mellitus, hypercholesterolemia, gastritis, last stress test in 05/2016, which shows abnormal myocardial perfusion study, fixed defect. Continue broad-spectrum antibiotics, continue atorvastatin, avoid nephrotoxic medication, aggressive control of blood pressure. Dr. Jacobo increased hydralazine. Chest x-ray shows no active disease; no significant interval change compared to the prior examination. Seen by Dr. Jefferson Bloom, Dr. Jacobo, and Dr. Vasquez Rosales. He had an endoscopy suggestive of gastroparesis. Colonoscopy done earlier is negative for chronic source of blood loss. CAT scan was negative. Gastroenterology recommending pureed diet and low-dose H2 blockers. Followup hemoglobin and hematocrit. Anemia is probably multifactorial. Viral syndrome - improving. Continue bronchodilators and gastric prophylaxis. Deep vein thrombosis prophylaxis. Repeat labs. We will follow. Gill Hoffman MD
[2017-05-10] MEDS: Albuterol-Ipratrop 3 mg / 0.5 (3 ml) UD IH SCH ×3 (01:02→13:31)
--- NOTE | 2017-05-10 01:41 | PN ---
DATE: 05/09/2017 PULMONARY PROGRESS NOTE REFERRING PHYSICIAN: Dr. Hoffman. SUBJECTIVE: He is lying the bed, head at 45 degree, feels okay. No headache, no rhinitis, no nausea, no vomiting, no diarrhea, no leg pain, no leg swelling. OBJECTIVE: GENERAL: No acute distress. VITAL SIGNS: Temperature 98, heart rate is 88, respiratory rate is 17, blood pressure 136/94, pulse ox 99% on room air. HEENT: Moist mucous membrane. Crowded airway. NECK: Supple. No JVD. LUNGS: Has a fair airflow with few rhonchi. HEART: S1 and S2. ABDOMEN: Soft, nontender, no organomegaly. EXTREMITIES: There is no edema. NEUROLOGICAL: He is awake, alert, follows simple commands. MEDICATIONS: He is on hydralazine 25 mg twice a day, Aricept 10 mg at bedtime, Dilaudid 0.5 mg q. 4 hour p.r.n., albuterol and Atrovent nebulizers q. 6 hour, Ecotrin 81 mg daily, ferrous sulfate 325 mg twice a day, glipizide is 10 mg daily, insulin coverage, Hygroton 25 mg daily, IV iron sucrose daily 100 mg, Lidocaine patch to affected area daily, Lipitor 40 mg daily, Namenda 10 mg daily, Bystolic 10 mg daily, gabapentin 300 mg daily, Norvasc 10 mg daily, Pepcid is 20 mg daily, Plavix 75 mg daily, Reglan 5 mg before meals, Requip 0.25 mg daily, bicarbonate 650 mg daily, IV fluid normal saline 40 mL per hour, Zanaflex 4 mg at bedtime, Zetia 10 mg daily, Zithromax 500 mg daily, Zofran p.r.n. basis. LABORATORY DATA: Reviewed, noted blood sugar is 183. Microbiology: Blood culture has been negative. Chest x-ray done today, shows no active disease. IMPRESSION AND PLAN: Status post acute bronchitis, coronary artery disease, diabetes, gastroparesis, anemia which is iron deficiency, renal failure. Case discussed with GI, Dr. Bloom, upper GI and had been negative. CT of the abdomen is unremarkable. Has gastroparesis, may need to encourage p.o. intake, need to reevaluate gabapentin and Flexeril dosages. If we can decrease, may help with gastroparesis. 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 Continue gastric prophylaxis, sequential compression device to the lower extremity. Follow up with GI and also should be followed with Hematology. Thank you and we will follow with you. Anyi Borja MD
--- NOTE | 2017-05-10 05:38 | PN ---
DATE: 05/09/2017 SUBJECTIVE: This patient was seen and evaluated earlier today. Patient is tolerating the diet. No complaints of any abdominal pain. No bleeding per rectum. No vomiting. PHYSICAL EXAMINATION VITAL SIGNS: Temperature is 98.4, pulse 88, blood pressure is 136/94, respirations 17, O2 saturation 99%. HEENT: Atraumatic, anicteric. NECK: Supple. HEART: S1, S2 heard. LUNGS: Bilateral air entry present. ABDOMEN: Soft. There is no tenderness. EXTREMITIES: No cyanosis. No clubbing. NEUROLOGIC: Alert, oriented, moves all the extremities. LABORATORY DATA: No labs done today. IMPRESSION: This is a 62-year-old patient admitted with worsening of the renal function versus anemia. Patient admitted with atypical chest pain. Upper gastrointestinal endoscopy recently revealed a gastroparesis, gastritis. Most likely, the symptoms may be related to the gastroparesis. The patient did have the CT scan which showed no active disease; however, the CAT scan shows patchy pneumonia in the right lung base, which is not evident in the CAT scan. Patient has been on antibiotics. Followup of the hemoglobin,hematocrit, and iron studies and supplement iron if needed. Discussed with Dr. Borja at length and also with the patient. We would continue the famotidine 20 mg daily. The patient had colonoscopy 04/30/2016.Multiple polyps removed. Preparation was suboptimal. I would recommend repeat colonoscope in view of significant iron deficiency anemia We will dw and Renal prior to scheduling for coloscopy Thank you very much for allowing us to participate in the care of the patient. Jefferson Bloom MD MTDEva
[2017-05-10 06:19] LABS: BASO # 0.01 K/mm3 (0.0-2.0); BASO % 0.1 % (0.0-3.0); EOS # 0.3 (0.0-0.7); GRAN # 5.12 (1.4-6.5); GRAN % 61.1 % (50.0-68.0); HEMOGLOBIN 9.1 g/dL (14.0-18.0); LYMPH # 1.9 (1.2-3.4); LYMPH % 22.1 % (22.0-35.0); MEAN CELL VOLUME 82.2 fl (80.0-105.0); MEAN CORPUSCULAR HGB CONC 32.9 g/dl (31.0-37.0); MEAN PLATELET VOLUME 9.9 fl (7.0-11.0); MONO # 1.2 (0.1-0.6); MONO % 13.7 % (1.0-6.0); RBC 3.37 10^6/uL (3.5-6.1); RED CELL DISTRIBUTION WIDTH 15.8 % (11.5-14.5); WHITE BLOOD COUNT 8.4 10^3/ul (4.5-11.0)
[2017-05-10 06:46] LABS: ALB/GLOB RATIO 1.2 (1.1-1.8); ALBUMIN 3.2 g/dL (3.0-4.8); CALCIUM 9.3 mg/dL (8.4-10.5); MAGNESIUM 1.5 mg/dL (1.7-2.2)
[2017-05-10] MEDS: Insulin Reg-LOW-Coverage SC SCH ×3 (08:14→17:35)
--- NOTE | 2017-05-10 09:37 | PN ---
DATE: 05/07/2017 The patient is a 62-year-old male. SUBJECTIVE: The patient is seen and examined at the bedside, looking comfortable. No nausea, vomiting, or diarrhea. No hematuria or hematochezia. No swelling of the legs. No chest pain or palpitations, status post endoscopy. Hungry, was waiting for dinner. No more nauseous or fever. PHYSICAL EXAMINATION: VITAL SIGNS: Temperature 98.7, pulse 65, blood pressure 130/90, and respiratory rate 18. HEENT: Head: Normocephalic, atraumatic. Eyes: PERRLA. Extraocular movements intact. Conjunctivae clear. Nose patent. Mucous membranes are moist. NECK: Supple. No carotid bruits. No JVD. No thyromegaly. CHEST: Bilaterally symmetrical. HEART: S1 and S2 positive. LUNGS: Clear to auscultation. ABDOMEN: Soft. Bowel sounds are positive. No organomegaly. EXTREMITIES: No edema. No cyanosis. NEUROLOGIC: The patient is awake and alert. Moving all four extremities with no focal deficit. LABORATORY DATA: White blood cells 7.8, hemoglobin 8.8, hematocrit 27.6, and platelets 226. Glucose 102. MEDICATIONS: Aricept, Dilaudid, DuoNeb, Ecotrin, ferrous sulfate, Glucotrol insulin, hydrochlorothiazide, Lipitor, Namenda, Bystolic, ReQuip, sodium bicarbonate, Zetia, Zithromax, and Zofran. ASSESSMENT AND PLAN: Mr. Anyi Herrera is a 62-year-old male with leukocytosis, improved; anemia; uncontrolled diabetes mellitus; proteinuria; hematuria. Plan for upper endoscopy by Dr. Bloom. Went for esophagogastroduodenoscopy, found gastroparesis. CAT scan looks like atypical. Went for shoulder x-rays, no demonstrated fracture or dislocation. Went for an MRI of the cervical spine. There is moderate degenerative stenosis of C6-C7 and C5-C6 disc osteophyte complexes with limited cord reaction suggestive of the C6 and C7 cord level without severe stenosis. No definite disk herniation, some splinting towards the right versus dextroscoliosis. Seen by GI, Olivia Arana. The patient has retinitis pigmentosa, hypercholesterolemia, hypertension, esophageal ulcers, dementia, diabetes mellitus type 2, gastroparesis, history of coronary artery disease, and broken femur. Continue present treatment. Discussion done with Dr. Bloom. The patient is legally blind. History of degenerations, renal insufficiency, history of viral syndrome with acute bronchitis. We will continue present treatment. Tessalon Perles and bronchodilators. Gastric and deep venous thrombosis prophylaxis. Gill Hoffman MD MTDD
[2017-05-10] MEDS ORDERED: Potassium Chloride 20 mEq ER Tab PO STA (11:23)
[2017-05-10] MEDS: Lidocaine 5% Patch TD SCH (11:36)
[2017-05-10] MEDS: GlipiZIDE 10 mg SR Tab PO SCH (11:38)
[2017-05-10] MEDS: Non Formulary Medication (Nebivolol [Bystolic] 10 MG) PO SCH (11:39)
[2017-05-10] MEDS: Sodium Chloride 0.9% 1,000 ML IV SCH (11:40)
--- NOTE | 2017-05-10 13:22 | PN ---
DATE: 05/10/2017 REASON FOR CONSULTATION: Coronary artery disease, status post percutaneous transluminal coronary angioplasty, admitted with possible pneumonia. SUBJECTIVE: Patient denies any chest pain, shortness of breath, any palpitation. OBJECTIVE: GENERAL: Not in apparent distress. Sitting in the bedside, VITAL SIGNS: Temperature afebrile, heart rate 77, blood pressure 135/83. HEENT: PERRLA, intact. NECK: Supple. No carotid bruit or thyromegaly. CHEST: Clear to auscultation. HEART: S1 and S2, regular. ABDOMEN: Soft. EXTREMITIES: Clubbing and cyanosis negative. LABORATORY DATA: Blood workup as follows: WBC 8.5, hemoglobin , hematocrit 27.7, and platelet count 204,000. Chemistry shows sodium 141, potassium 3.6, chloride 108, carbon dioxide 21, anion gap of 16, BUN 21, creatinine 2.5. DATA: Chest x-ray shows no pneumonia. IMPRESSION: Upper respiratory tract infection, possible early pneumonia, resolving; chronic kidney disease; coronary artery disease, status post stent; diabetes; hypertension; hyperlipidemia; chronic renal insufficiency. Last stress test on 06/15/2016 showed abnormal myocardial perfusion study, fixed defect, no reversible ischemia, ejection fraction 48%. Patient had echocardiography repeat done on 05/06/2017, ejection fraction 55%, trace aortic regurgitation, mild aortic stenosis, [id number] mitral regurgitation, mild tricuspid regurgitation, RV systolic pressure 55. Patient had GI evaluation, medical treatment recommended. RECOMMENDATIONS: We will discontinue telemetry. Continue aspirin, continue hydralazine, continue glipizide, continue ferrous sulfate. Avoid nephrotoxic medication. We will supplement 20 mEq of potassium. We will give 20 mEq of K-Dur and discontinue telemetry. Thank you Dr. Hoffman for providing us the opportunity in taking care of patient. Anyi Jacobo MD
--- NOTE | 2017-05-10 13:54 | CP.PCM.DIS ---
<PatRoseann Michelle - Last Filed: 05/10/17 13:51> Provider - Provider Date of Admission: 05/05/17 18:47 Attending physician: Gill Hoffman MD Primary care physician: Gill Hoffman MD Consults: Cardio - Dr. Donnell Aiken - Dr. Viramontes GI - Dr. Bloom Nephro - Dr. Rutherford Neuro - Dr. Jensen Time Spent in preparation of Discharge (in minutes): 45 Hospital Course - Lab Results Lab Results: Most Recent Lab Values WBC 8.4 10^3/ul (4.5-11.0) 05/10/17 05:20 RBC 3.37 10^6/uL (3.5-6.1) L 05/10/17 05:20 Hgb 9.1 g/dL (14.0-18.0) L 05/10/17 05:20 Hct 27.7 % (42.0-52.0) L 05/10/17 05:20 MCV 82.2 fl (80.0-105.0) 05/10/17 05:20 MCH 27.0 pg (25.0-35.0) 05/10/17 05:20 MCHC 32.9 g/dl (31.0-37.0) 05/10/17 05:20 RDW 15.8 % (11.5-14.5) H 05/10/17 05:20 Plt Count 294 10^3/uL (120.0-450.0) 05/10/17 05:20 MPV 9.9 fl (7.0-11.0) 05/10/17 05:20 Gran % 61.1 % (50.0-68.0) 05/10/17 05:20 Lymph % (Auto) 22.1 % (22.0-35.0) 05/10/17 05:20 Victoria % (Auto) 13.7 % (1.0-6.0) H 05/10/17 05:20 Eos % (Auto) 3.0 % (1.5-5.0) 05/10/17 05:20 Baso % (Auto) 0.1 % (0.0-3.0) 05/10/17 05:20 Gran # 5.12 (1.4-6.5) 05/10/17 05:20 Lymph # (Auto) 1.9 (1.2-3.4) 05/10/17 05:20 Victoria # (Auto) 1.2 (0.1-0.6) H 05/10/17 05:20 Eos # (Auto) 0.3 (0.0-0.7) 05/10/17 05:20 Baso # (Auto) 0.01 K/mm3 (0.0-2.0) 05/10/17 05:20 PT 11.1 SECONDS (9.4-12.5) 05/05/17 16:50 INR 0.97 (0.93-1.08) 05/05/17 16:50 APTT 30.4 Seconds (25.1-36.5) 05/05/17 16:50 pO2 35 mm/Hg (30-55) 05/06/17 07:00 VBG pH 7.37 (7.32-7.43) 05/06/17 07:00 VBG pCO2 40.0 (40-60) 05/06/17 07:00 VBG HCO3 23.1 mmol/l (21-28) 05/06/17 07:00 VBG Total CO2 24.3 mmol.L (22-28) 05/06/17 07:00 VBG O2 Sat (Calc) 68.0 % (40-65) H 05/06/17 07:00 VBG Base Excess -2.0 mmol/L (0.0-2.0) L 05/06/17 07:00 VBG Potassium 3.8 mmol/L (3.6-5.2) 05/06/17 07:00 Sodium 140.0 mmol/L (132-148) 05/06/17 07:00 Chloride 112.0 mmol/L (98-107) H 05/06/17 07:00 Glucose 69 mg/dl (75-110) L 05/06/17 07:00 Lactate 1.1 mmol/L (0.7-2.1) 05/06/17 07:00 FiO2 21.0 % 05/06/17 07:00 Sodium 141 mmol/L (132-148) 05/10/17 05:20 Potassium 3.6 mmol/L (3.6-5.0) 05/10/17 05:20 Chloride 108 mmol/L (98-107) H 05/10/17 05:20 Carbon Dioxide 21 mmol/L (21-33) 05/10/17 05:20 Anion Gap 16 (10-20) 05/10/17 05:20 BUN 21 mg/dL (7-21) 05/10/17 05:20 Creatinine 2.5 mg/dl (0.8-1.5) H 05/10/17 05:20 Est GFR ( Amer) 32 05/10/17 05:20 Est GFR (Non-Af Amer) 26 05/10/17 05:20 POC Glucose (mg/dL) 243 mg/dL (65-110) H 05/10/17 11:36 Random Glucose 169 mg/dL (70-110) H 05/10/17 05:20 Hemoglobin A1c 6.6 % (4.2-6.5) H D 05/07/17 06:45 Calcium 9.3 mg/dL (8.4-10.5) 05/10/17 05:20 Phosphorus 3.7 mg/dL (2.5-4.5) 05/10/17 05:20 Magnesium 1.5 mg/dL (1.7-2.2) L 05/10/17 05:20 Iron 24 ug/dL (45-180) L 05/07/17 06:45 TIBC 292 ug/dL (261-462) 05/07/17 06:45 % Saturation 8 % (20-55) L 05/07/17 06:45 Ferritin 40.8 ng/mL 05/07/17 11:31 Total Bilirubin 0.4 mg/dL (0.2-1.3) 05/10/17 05:20 AST 22 U/L (17-59) 05/10/17 05:20 ALT 24 U/L (7-56) 05/10/17 05:20 Alkaline Phosphatase 50 U/L (38-126) 05/10/17 05:20 Lactate Dehydrogenase 513 U/L (333-699) 05/05/17 16:50 Total Creatine Kinase 62 U/L (35-230) 05/05/17 16:50 Troponin I 0.03 ng/mL 05/05/17 16:50 NT-Pro-B Natriuret Pep 946 pg/mL (0-450) H 05/05/17 16:50 Total Protein 6.0 g/dL (5.8-8.3) 05/10/17 05:20 Albumin 3.2 g/dL (3.0-4.8) 05/10/17 05:20 Globulin 2.8 gm/dL 05/10/17 05:20 Albumin/Globulin Ratio 1.2 (1.1-1.8) 05/10/17 05:20 Triglycerides 94 mg/dL (35-160) 05/07/17 06:45 Cholesterol 91 mg/dL (130-200) L 05/07/17 06:45 LDL Cholesterol Direct 32 mg/dL (0-129) 05/07/17 06:45 HDL Cholesterol 35 mg/dL (29-60) 05/07/17 06:45 Vitamin B12 577 pg/mL (239-931) 05/07/17 06:45 25-OH Vitamin D Total 35.5 NG/ML (30.0-100.0) 05/07/17 06:45 Folate > 20.0 ng/mL 05/07/17 06:45 TSH 3rd Generation 1.30 mIU/mL (0.46-4.68) 05/07/17 06:45 Venous Blood Potassium 3.8 mmol/L (3.6-5.2) 05/06/17 07:00 Urine Color Yellow (YELLOW) 05/05/17 18:40 Urine Appearance Sl cloudy (CLEAR) 05/05/17 18:40 Urine pH 6.0 (4.7-8.0) 05/05/17 18:40 Ur Specific Cascade 1.025 (1.005-1.035) 05/05/17 18:40 Urine Protein >=300 mg/dL (<30 mg/dL) H 05/05/17 18:40 Urine Glucose (UA) Negative mg/dL (NEGATIVE) 05/05/17 18:40 Urine Ketones Negative mg/dL (NEGATIVE) 05/05/17 18:40 Urine Blood Trace-intact (NEGATIVE) H 05/05/17 18:40 Urine Nitrate Negative (NEGATIVE) 05/05/17 18:40 Urine Bilirubin Negative (NEGATIVE) 05/05/17 18:40 Urine Urobilinogen 0.2 E.U./dL (<1 E.U./dL) 05/05/17 18:40 Ur Leukocyte Esterase Negative Roosevelt/uL (NEGATIVE) 05/05/17 18:40 Urine RBC Negative /hpf (0-2) 05/05/17 18:40 Urine WBC 2 - 5 /hpf (0-6) 05/05/17 18:40 Ur Epithelial Cells 3 - 4 /hpf (0-5) 05/05/17 18:40 Urine Bacteria Mod (NEG) 05/05/17 18:40 Coarse Granular Casts Trace /hpf (0-2) H 05/05/17 18:40 Ur Random Creatinine 34 mg/dL 05/07/17 04:30 U Random Total Protein 106 mg/L 05/07/17 04:30 Ur Random Urea Nitrogn 258 mg/dL 05/07/17 04:30 Urine Microalbumin 489.2 mg/L (0.0-16.6) H 05/07/17 04:30 Complement C3 124.0 mg/dL (88.0-165.0) 05/07/17 06:45 Complement C4 31.1 mg/dL (14.0-44.0) 05/07/17 06:45 Influenza Typ A,B (EIA) Negative for flu a/b (NEGATIVE) 05/05/17 16:50 - Hospital Course Hospital Course: 62 yr male w/ history chronic [place] with cardiac stents x 7, HTN, Hyperlipidemia, DM II, anemia, L eye blindness, & Renal insufficiency. Pt was admitted to [facility] [place] for headache, neck pain, chest pain, and pneumonia. Multiple studies preformed. Pneumonia treated with azithromycin. Ssis Ssrs Developer recommends medical treatment for chest pain. Neurologist ordered PT/OT and medical treatment w/ zanaflex for muscle spasm & cervicalgia. GI recommends upper GI endoscopy evaluation. Electrolytes corrected, anemia corrected with Aranesp, and goal to keep BP less than 130/80 per Nephrology. Pt is cleared for discharge home. Reviewed: CXR = WNL on 05/09/17 CT abd/pelvis = R lung base pneuomnia, heart mild-mod enlarge, small pericardial effusion, recommend chest CT f/u in 3-6 months Xray Shoulder = WNL MRI cervical spine = Mod degenerative stenosis at C5- C6-C7, splinting to R vs. dextroscoliosis, recommend MRI f/u US abd = R kidney complex cysts/mass, recommend CT scan f/u US R extremity = WNL CT head = mildly enlarged ventricles, L > R, generalized atrophy, Large mucosal polyp/retention cyst, L maxillary sinus CXR = Mild L basilar atelectasis/infiltrate, borderline cardiomegaly CT cervical spine = straightening of cervical lordosis r/t muscle spasm/ positioning ECG = ABNORMAL, NSR, L atrial enlargement, LVH, ST& T wave abn, consider lateral ischemia ECHO = EF 55%, aortic sclerosis vs mild as - Date & Time of H&P Date of H&P: 05/10/17 Time of H&P: 11:00 Discharge Exam - Head Exam Head Exam: ATRAUMATIC, NORMAL INSPECTION, NORMOCEPHALIC Discharge Plan - Follow Up Plan Condition: STABLE Disposition: HOME/ ROUTINE Instructions: Viral Pneumonia (GEN), Pneumococcal Vaccine for Adults (DC), Renal Failure Diet (DC) Referrals: Gill Hoffman MD [Primary Care Provider] - <Gill Hoffman - Last Filed: 05/11/17 10:39> Provider - Provider Date of Admission: 05/05/17 18:47 Attending physician: Gill Hoffman MD Primary care physician: Gill Hoffman MD Hospital Course - Lab Results Lab Results: Most Recent Lab Values WBC 8.4 10^3/ul (4.5-11.0) 05/10/17 05:20 RBC 3.37 10^6/uL (3.5-6.1) L 05/10/17 05:20 Hgb 9.1 g/dL (14.0-18.0) L 05/10/17 05:20 Hct 27.7 % (42.0-52.0) L 05/10/17 05:20 MCV 82.2 fl (80.0-105.0) 05/10/17 05:20 MCH 27.0 pg (25.0-35.0) 05/10/17 05:20 MCHC 32.9 g/dl (31.0-37.0) 05/10/17 05:20 RDW 15.8 % (11.5-14.5) H 05/10/17 05:20 Plt Count 294 10^3/uL (120.0-450.0) 05/10/17 05:20 MPV 9.9 fl (7.0-11.0) 05/10/17 05:20 Gran % 61.1 % (50.0-68.0) 05/10/17 05:20 Lymph % (Auto) 22.1 % (22.0-35.0) 05/10/17 05:20 Victoria % (Auto) 13.7 % (1.0-6.0) H 05/10/17 05:20 Eos % (Auto) 3.0 % (1.5-5.0) 05/10/17 05:20 Baso % (Auto) 0.1 % (0.0-3.0) 05/10/17 05:20 Gran # 5.12 (1.4-6.5) 05/10/17 05:20 Lymph # (Auto) 1.9 (1.2-3.4) 05/10/17 05:20 Victoria # (Auto) 1.2 (0.1-0.6) H 05/10/17 05:20 Eos # (Auto) 0.3 (0.0-0.7) 05/10/17 05:20 Baso # (Auto) 0.01 K/mm3 (0.0-2.0) 05/10/17 05:20 PT 11.1 SECONDS (9.4-12.5) 05/05/17 16:50 INR 0.97 (0.93-1.08) 05/05/17 16:50 APTT 30.4 Seconds (25.1-36.5) 05/05/17 16:50 pO2 35 mm/Hg (30-55) 05/06/17 07:00 VBG pH 7.37 (7.32-7.43) 05/06/17 07:00 VBG pCO2 40.0 (40-60) 05/06/17 07:00 VBG HCO3 23.1 mmol/l (21-28) 05/06/17 07:00 VBG Total CO2 24.3 mmol.L (22-28) 05/06/17 07:00 VBG O2 Sat (Calc) 68.0 % (40-65) H 05/06/17 07:00 VBG Base Excess -2.0 mmol/L (0.0-2.0) L 05/06/17 07:00 VBG Potassium 3.8 mmol/L (3.6-5.2) 05/06/17 07:00 Sodium 140.0 mmol/L (132-148) 05/06/17 07:00 Chloride 112.0 mmol/L (98-107) H 05/06/17 07:00 Glucose 69 mg/dl (75-110) L 05/06/17 07:00 Lactate 1.1 mmol/L (0.7-2.1) 05/06/17 07:00 FiO2 21.0 % 05/06/17 07:00 Sodium 141 mmol/L (132-148) 05/10/17 05:20 Potassium 3.6 mmol/L (3.6-5.0) 05/10/17 05:20 Chloride 108 mmol/L (98-107) H 05/10/17 05:20 Carbon Dioxide 21 mmol/L (21-33) 05/10/17 05:20 Anion Gap 16 (10-20) 05/10/17 05:20 BUN 21 mg/dL (7-21) 05/10/17 05:20 Creatinine 2.5 mg/dl (0.8-1.5) H 05/10/17 05:20 Est GFR ( Amer) 32 05/10/17 05:20 Est GFR (Non-Af Amer) 26 05/10/17 05:20 POC Glucose (mg/dL) 85 mg/dL (65-110) 05/10/17 17:32 Random Glucose 169 mg/dL (70-110) H 05/10/17 05:20 Hemoglobin A1c 6.6 % (4.2-6.5) H D 05/07/17 06:45 Calcium 9.3 mg/dL (8.4-10.5) 05/10/17 05:20 Phosphorus 3.7 mg/dL (2.5-4.5) 05/10/17 05:20 Magnesium 1.5 mg/dL (1.7-2.2) L 05/10/17 05:20 Iron 24 ug/dL (45-180) L 05/07/17 06:45 TIBC 292 ug/dL (261-462) 05/07/17 06:45 % Saturation 8 % (20-55) L 05/07/17 06:45 Ferritin 40.8 ng/mL 05/07/17 11:31 Total Bilirubin 0.4 mg/dL (0.2-1.3) 05/10/17 05:20 AST 22 U/L (17-59) 05/10/17 05:20 ALT 24 U/L (7-56) 05/10/17 05:20 Alkaline Phosphatase 50 U/L (38-126) 05/10/17 05:20 Lactate Dehydrogenase 513 U/L (333-699) 05/05/17 16:50 Total Creatine Kinase 62 U/L (35-230) 05/05/17 16:50 Troponin I 0.03 ng/mL 05/05/17 16:50 NT-Pro-B Natriuret Pep 946 pg/mL (0-450) H 05/05/17 16:50 Total Protein 6.0 g/dL (5.8-8.3) 05/10/17 05:20 Albumin 3.2 g/dL (3.0-4.8) 05/10/17 05:20 Globulin 2.8 gm/dL 05/10/17 05:20 Albumin/Globulin Ratio 1.2 (1.1-1.8) 05/10/17 05:20 Triglycerides 94 mg/dL (35-160) 05/07/17 06:45 Cholesterol 91 mg/dL (130-200) L 05/07/17 06:45 LDL Cholesterol Direct 32 mg/dL (0-129) 05/07/17 06:45 HDL Cholesterol 35 mg/dL (29-60) 05/07/17 06:45 Vitamin B12 577 pg/mL (239-931) 05/07/17 06:45 25-OH Vitamin D Total 35.5 NG/ML (30.0-100.0) 05/07/17 06:45 Folate > 20.0 ng/mL 05/07/17 06:45 TSH 3rd Generation 1.30 mIU/mL (0.46-4.68) 05/07/17 06:45 Calcium (PTH Intact) 8.7 mg/dL (8.6-10.3) 05/07/17 06:45 PTH w/Ion &Tot Calcium 119 pg/mL (14-64) H 05/07/17 06:45 Venous Blood Potassium 3.8 mmol/L (3.6-5.2) 05/06/17 07:00 Urine Color Yellow (YELLOW) 05/05/17 18:40 Urine Appearance Sl cloudy (CLEAR) 05/05/17 18:40 Urine pH 6.0 (4.7-8.0) 05/05/17 18:40 Ur Specific Cascade 1.025 (1.005-1.035) 05/05/17 18:40 Urine Protein >=300 mg/dL (<30 mg/dL) H 05/05/17 18:40 Urine Glucose (UA) Negative mg/dL (NEGATIVE) 05/05/17 18:40 Urine Ketones Negative mg/dL (NEGATIVE) 05/05/17 18:40 Urine Blood Trace-intact (NEGATIVE) H 05/05/17 18:40 Urine Nitrate Negative (NEGATIVE) 05/05/17 18:40 Urine Bilirubin Negative (NEGATIVE) 05/05/17 18:40 Urine Urobilinogen 0.2 E.U./dL (<1 E.U./dL) 05/05/17 18:40 Ur Leukocyte Esterase Negative Roosevelt/uL (NEGATIVE) 05/05/17 18:40 Urine RBC Negative /hpf (0-2) 05/05/17 18:40 Urine WBC 2 - 5 /hpf (0-6) 05/05/17 18:40 Ur Epithelial Cells 3 - 4 /hpf (0-5) 05/05/17 18:40 Urine Bacteria Mod (NEG) 05/05/17 18:40 Coarse Granular Casts Trace /hpf (0-2) H 05/05/17 18:40 Ur Random Creatinine 34 mg/dL 05/07/17 04:30 U Random Total Protein 106 mg/L 05/07/17 04:30 Ur Random Urea Nitrogn 258 mg/dL 05/07/17 04:30 Urine Microalbumin 489.2 mg/L (0.0-16.6) H 05/07/17 04:30 Complement C3 124.0 mg/dL (88.0-165.0) 05/07/17 06:45 Complement C4 31.1 mg/dL (14.0-44.0) 05/07/17 06:45 Influenza Typ A,B (EIA) Negative for flu a/b (NEGATIVE) 05/05/17 16:50 - Hospital Course Hospital Course: pt is seen and examined at bed side , looking comfortable , agreed all above , meds pres. given , will f/u as out pt .
[2017-05-10 18:10] VITALS: BP 132/89; PULSE 84; TEMP 98; O2SAT 100
--- NOTE | 2017-05-10 19:18 | PN ---
DATE: 05/10/2017 SUBJECTIVE: This patient was seen and evaluated today. The patient is comfortable, tolerating the diet. PHYSICAL EXAMINATION: VITAL SIGNS: Temperature is 98.7, blood pressure is 135/83, respirations 20, O2 saturation 97%. HEENT: Atraumatic, anicteric. NECK: Supple. HEART: S1 and S2 heard. LUNGS: Bilateral air entry present. ABDOMEN: Soft. There is no tenderness. EXTREMITIES: No cyanosis. No clubbing. NEUROLOGICAL: Alert, oriented. Moves all the extremities. LABORATORY DATA: Hemoglobin 9.1, hematocrit 27.7, WBC is 8.4, platelets 294. BUN 21, creatinine 2.5. IMPRESSION: This 62-year-old patient admitted with worsening of the renal function. Admitted with severe anemia. Admitted with atypical chest pain. The patient did have upper gastrointestinal endoscopy which revealed gastroparesis, gastritis. The patient had a colonoscopy done more than a year ago. Preparation was fair. I would recommend a repeat colonoscopy. The patient had a CT scan done, which did not show any active lesion suggestive to explain the anemia. The CAT scan showed patchy pneumonia. The patient has been on antibiotics now. Plan to be discharged today. I did discuss with Dr. Hoffman. The patient will benefit from colonoscopy, preferred to have done as an outpatient. Chronic kidney disease, being followed with he social worker aide. Thank you very much for allowing us to participate in the care of the patient. Jefferson Bloom MD MTDE[facility]
--- NOTE | 2017-05-10 23:08 | PN ---
DATE: 05/10/2017 PULMONARY PROGRESS NOTE REFERRING PHYSICIAN: Gill Hoffman MD. SUBJECTIVE: He is lying in the bed. Family at bedside. Night was unremarkable. Feels better, tolerating p.o. diet well. No nausea. No vomiting. No diarrhea. No leg pain, leg swelling. OBJECTIVE: GENERAL: In no acute distress. VITAL SIGNS: Temperature is 98, heart rate is 84, respiratory rate is 20, blood pressure 132/89, pulse ox 100% on room air. HEENT: Moist mucous membrane. Crowded airway. NECK: Supple. No JVD. LUNGS: Have fair airflow with rhonchi. HEART: S1 and S2. ABDOMEN: Soft, nontender. No organomegaly. EXTREMITIES: No edema. NEUROLOGIC: Awake, alert. Follows simple command. MEDICATIONS: He is on hydralazine 25 mg twice a day, Aricept 10 mg at bedtime, DuoNeb q. 6 hours, Ecotrin 81 mg daily, ferrous sulfate 324 mg twice a day, glipizide 10 mg daily, insulin coverage, Hygroton is 25 mg daily, IV iron 100 mg daily, lidocaine patch to affected area, Lipitor 40 mg daily, Namenda 10 mg daily, Bystolic 10 mg daily, Neurontin 100 mg daily, Norvasc 10 mg daily, Pepcid 20 mg daily, Plavix 75 mg daily, Requip 0.25 mg daily, Zetia 10 mg daily, Zithromax 500 mg daily. LABORATORY DATA: Shows hemoglobin 9.1, hematocrit 27.7, WBC 8.4, platelet is 294. Sodium 141, potassium 3.6, chloride 108, bicarbonate 21, BUN 21, creatinine 2.5, glucose 85, phosphorus 3.7, calcium 9.3, magnesium 1.5, AST 22, ALT 24, alk phos is 50, albumin is 3.2. Microbiology: Blood culture has been negative. IMPRESSION AND PLAN: Status post acute bronchitis; coronary artery disease; diabetes; gastroparesis; anemia, which is iron-deficiency; renal failure. Spoke to the patient and family in detail. Spoke about gastroparesis and its effect. Urged him to take small meal and frequently. Gastroesophageal reflux disease precaution. P.r.n. bronchodilator. Fall precaution. Gastric prophylaxis. Followup H and H upon discharge as outpatient. Thank you and we will follow with you. Anyi Borja MD [facility] # [id number]
== END 2017-05-10 19:49 | disposition home health service (06) | DRG 194 ==
LOC: ED 14:24 → ERH 18:47 → 3RSO 22:17
PROVIDERS: ADMIT Internal Medicine; ATTEND Internal Medicine
PROC: 3E0F7GC Introduction of Other Therapeutic Substance into Respiratory Tract, Via Natural or Artificial Opening (ICD-10-PCS; 2017-05-06)
PROC: 0DJ08ZZ Inspection of Upper Intestinal Tract, Via Natural or Artificial Opening Endoscopic (ICD-10-PCS; principal; 2017-05-07 14:00)
DX: J18.9 Pneumonia, unspecified organism (principal); N18.4 Chronic kidney disease, stage 4 (severe); E11.22 Type 2 diabetes mellitus with diabetic chronic kidney disease; K31.84 Gastroparesis; E11.65 Type 2 diabetes mellitus with hyperglycemia; E83.42 Hypomagnesemia; E11.43 Type 2 diabetes mellitus with diabetic autonomic (poly)neuropathy; E78.00 Pure hypercholesterolemia, unspecified; H35.52 Pigmentary retinal dystrophy; I25.10 Atherosclerotic heart disease of native coronary artery without angina pectoris; I12.9 Hypertensive chronic kidney disease with stage 1 through stage 4 chronic kidney disease, or unspecified chronic kidney disease; K29.50 Unspecified chronic gastritis without bleeding; M62.838 Other muscle spasm; G25.81 Restless legs syndrome; D63.1 Anemia in chronic kidney disease; M89.9 Disorder of bone, unspecified; D50.9 Iron deficiency anemia, unspecified; M48.02 Spinal stenosis, cervical region; F03.90 Unspecified dementia, unspecified severity, without behavioral disturbance, psychotic disturbance, mood disturbance, and anxiety; H54.62 Unqualified visual loss, left eye, normal vision right eye; J20.9 Acute bronchitis, unspecified; K21.9 Gastro-esophageal reflux disease without esophagitis; I25.2 Old myocardial infarction; Z79.4 Long term (current) use of insulin; Z95.5 Presence of coronary angioplasty implant and graft

== ENCOUNTER 2017-05-17 11:44 | Observation (INO) | payer MEDICARE, OTHER ==
[2017-05-17 11:44] VITALS: BMI 22.2
[2017-05-17] MEDS ORDERED: Lactated Ringer's 1,000 ML IV STA (12:29)
--- NOTE | 2017-05-17 12:36 | ED PDOC ---
Arrival/HPI - General Chief Complaint: GI Problem Time Seen by Provider: 05/17/17 11:56 Historian: Patient - History of Present Illness Narrative History of Present Illness (Text): 05/17/17 12:36 A 62 year old male, whose past medical history includes hypertension, hyperlipidemia, diabetes, anemia, chronic left eye blurry vision/renal insufficiency and chronic UT with 7 stents, presents to the emergency department complaining of vomiting, diarrhea, abdominal pain and headache for the past few days. Patient denies any sore throat, cough, chest pain or any other complaints at this time. PMD: Dr. Hoffman Time/Duration: < week Symptom Onset: Sudden Symptom Course: Unchanged Activities at Onset: Rest Context: Home Past Medical History - Provider Review Nursing Documentation Reviewed: Yes - Infectious Disease Hx of Infectious Diseases: None - Cardiac Hx Cardiac Disorders: Yes Hx Hypertension: Yes - Pulmonary Hx Respiratory Disorders: Yes Hx Asthma: No Hx Bronchitis: No Hx Chronic Obstructive Pulmonary Disease (COPD): No Hx Emphysema: No Hx Pneumonia: Yes Hx Respiratory Aspiration: No Hx Respiratory Tract Infection: No Hx Sleep Apnea: No Hx Tuberculosis: No - Neurological Hx Paralysis: No - HEENT Hx HEENT Disorder: Yes Hx Cataracts: Yes Other/Comment: poor vision - Renal Hx Renal Disorder: Yes Hx Dialysis: No Hx Neurogenic Bladder: No Hx Pyelonephritis: No Hx Renal Cancer: No Hx Renal Failure: No - Endocrine/Metabolic Hx Diabetes Mellitus Type 2: Yes - Hematological/Oncological Hx Blood Transfusions: No Hx Blood Transfusion Reaction: No - Integumentary Hx Dermatological Disorder: No Hx Basal Cell Carcinoma: No Hx Eczema: No Hx Melanoma: No Hx Psoriasis: No Hx Squamous Cell Carcinoma: No - Musculoskeletal/Rheumatological Hx Musculoskeletal Disorders: No - Gastrointestinal Hx Gastrointestinal Disorders: Yes Hx Colostomy: No Hx Crohn's Disease: No Hx Diverticulitis: No Hx Gall Bladder Disease: No Hx Gastroesophageal Reflux: Yes Hx Ileostomy: No Hx Liver Failure: No Hx Pancreatitis: No HX Swallowing Problems: No - Genitourinary/Gynecological Hx Genitourinary Disorders: No Hx Hematuria: No Hx Incontinence: No Hx Prostate Problems: No Hx Sexually Transmitted Diseases: No Hx Urinary Tract Infection: No - Psychiatric Hx Emotional Abuse: No Hx Physical Abuse: No Hx Substance Use: No - Surgical History Hx Coronary Stent: Yes (8) - Anesthesia Hx Anesthesia Reactions: No Hx Malignant Hyperthermia: No - Suicidal Assessment Feels Threatened In Home Enviroment: No Family/Social History - Physician Review Nursing Documentation Reviewed: Yes Family/Social History: No Known Family HX Smoking Status: Never Smoked Hx Alcohol Use: No Hx Substance Use: No Allergies/Home Meds Allergies/Adverse Reactions: Allergies No Known Allergies Allergy (Verified 05/05/17 08:37) Home Medications: Home Meds Medication Instructions Recorded Confirmed Aspirin [Ecotrin] 81 mg PO DAILY 03/31/16 05/17/17 Chlorthalidone [Hygroton] 25 mg PO DAILY 03/31/16 05/17/17 Clopidogrel [Plavix] 75 mg PO DAILY 03/31/16 05/17/17 Ezetimibe [Zetia] 10 mg PO DAILY 03/31/16 05/17/17 Glipizide [Glipizide Xl] 10 mg PO DAILY 03/31/16 05/17/17 MetFORMIN [glucOPHAGE] 1,000 mg PO BID 03/31/16 05/17/17 Nebivolol [Bystolic] 5 mg PO DAILY 03/31/16 05/17/17 Simvastatin [Zocor] 80 mg PO DAILY 03/31/16 05/17/17 amLODIPine [Norvasc] 10 mg PO DAILY 03/31/16 05/17/17 Pantoprazole Sodium [Protonix] 40 mcg PO DAILY 04/30/16 05/17/17 Donepezil HCl [Aricept] 10 mg PO HS 05/05/17 05/17/17 Donepezil [Aricept] 0 mg PO DAILY 05/05/17 05/17/17 Ferrous Sulfate 325 mg PO BID 05/05/17 05/17/17 Gabapentin [Neurontin] 300 mg PO DAILY 05/05/17 05/17/17 Memantine [Namenda] 10 mg PO DAILY 05/05/17 05/17/17 Sodium Bicarbonate 650 mg PO DAILY 05/05/17 05/17/17 rOPINIRole [Requip] 0.25 mg PO DAILY 05/05/17 05/17/17 Review of Systems - Physician Review All systems were reviewed & negative as marked: Yes - Review of Systems ENT: absent: Sore Throat Respiratory: absent: Cough Cardiovascular: absent: Chest Pain Gastrointestinal: Abdominal Pain, Diarrhea, Vomiting Neurological: Headache Physical Exam Vital Signs Reviewed: Yes Vital Signs Temp Pulse Resp BP Pulse Ox 05/17/17 20:32 78 18 106/64 99 05/17/17 17:00 71 18 121/75 100 05/17/17 14:52 75 18 118/71 98 05/17/17 13:03 98.4 F 77 18 120/75 98 05/17/17 12:07 98.4 F 77 18 120/75 98 Temperature: Afebrile Blood Pressure: Normal Pulse: Regular Respiratory Rate: Normal Appearance: Positive for: Well-Appearing, Non-Toxic, Comfortable Pain Distress: None Mental Status: Positive for: Alert and Oriented X 3 - Systems Exam Head: Present: Atraumatic, Normocephalic Pupils: Present: PERRL Extroacular Muscles: Present: EOMI Conjunctiva: Present: Normal Mouth: Present: Moist Mucous Membranes Neck: Present: Normal Range of Motion Respiratory/Chest: Present: Clear to Auscultation, Good Air Exchange. No: Respiratory Distress, Accessory Muscle Use Cardiovascular: Present: Regular Rate and Rhythm, Normal S1, S2. No: Murmurs Abdomen: Present: Tenderness (mild nonfocal), Normal Bowel Sounds. No: Distention, Peritoneal Signs Back: Present: Normal Inspection Upper Extremity: Present: Normal Inspection. No: Cyanosis, Edema Lower Extremity: Present: Normal Inspection. No: Edema Neurological: Present: GCS=15, CN II-XII Intact, Speech Normal Skin: Present: Warm, Dry, Normal Color. No: Rashes Psychiatric: Present: Alert, Oriented x 3, Normal Insight, Normal Concentration Medical Decision Making ED Course and Treatment: 05/17/17 12:34 Impression: A 62 year old male with vomiting, diarrhea, abdominal pain and headache. Plan: -- EKG -- chest xray -- labs -- Urinalysis -- Zofran -- Reassess and disposition Prior Visits: Notes and results from previous visits were reviewed. Patient was last seen in the emergency department on 05/05/17 for evaluation of fever, fatigue, right sided neck pain and headache. Patient was admitted for Pneumonia, abnormal EKG, renal insufficiency and elevated BNP level. Patient was discharged on 05/10/17. Progress Notes: 05/17/17 13:03 EKG: Ordered, reviewed, and independently interpreted the EKG. Rate : 64 BPM Rhythm : NSR Interpretation : Nonspecific T wave changes Comparison : No interval change from previous 05/17/17 14:03 chest xray Creator : Raymond Pritchett MD IMPRESSION: No active disease. 05/18/17 13:37 updated rseults of imaging labs to dr stafford. will not empricially cover luekocytosis, culturue pendign. dr hoffman aware. - Lab Interpretations Lab Results: 05/17/17 12:50 05/17/17 12:50 Lab Results 05/17/17 14:20: Urine Color Yellow, Urine Appearance Clear, Urine pH 6.0, Ur Specific Marion 1.020, Urine Protein 100 H, Urine Glucose (UA) Negative, Urine Ketones Negative, Urine Blood Trace-intact H, Urine Nitrate Negative, Urine Bilirubin Negative, Urine Urobilinogen 0.2, Ur Leukocyte Esterase Negative, Urine RBC 0 - 2, Urine WBC 0 - 2, Ur Epithelial Cells 0 - 2, Urine Bacteria Trace 05/17/17 12:50: Sodium 137, Potassium 5.3 H, Chloride 103, Carbon Dioxide 20 L, Anion Gap 19, BUN 51 H, Creatinine 3.0 H, Est GFR ( Amer) 26, Est GFR ( Non-Af Amer) 21, Random Glucose 179 H, Calcium 9.9, Total Bilirubin 0.6, AST 32 , ALT 31, Alkaline Phosphatase 57, Lactate Dehydrogenase 280 L, Total Creatine Kinase 40, Troponin I 0.02 D, Total Protein 6.6, Albumin 3.8, Globulin 2.8, Albumin/Globulin Ratio 1.4, Amylase 165 H, Lipase 183 05/17/17 12:50: PT 11.2, INR 0.98, APTT 29.3 05/17/17 12:50: WBC 14.4 H D, RBC 3.69, Hgb 10.2 L, Hct 31.1 L, MCV 84.3, MCH 27.6, MCHC 32.8, RDW 16.2 H, Plt Count 346, MPV 9.9, Gran % 84.4 H, Lymph % ( Auto) 9.0 L, Mercer % (Auto) 4.0, Eos % (Auto) 2.5, Baso % (Auto) 0.1, Gran # 12.14 H, Lymph # (Auto) 1.3, Mercer # (Auto) 0.6, Eos # (Auto) 0.4, Baso # (Auto) 0.01 I have reviewed the lab results: Yes - RAD Interpretation Radiology Orders: 05/17/17 12:29 CHEST PORTABLE [RAD] Stat 05/17/17 13:26 ABD & PELVIS PO CONTRAST ONLY [CT] Stat - EKG Interpretation Interpreted by ED Physician: Yes Type: 12 lead EKG - Medication Orders Current Medication Orders: Amlodipine Besylate (Norvasc) 10 mg PO DAILY [facility] Last Admin: 05/18/17 09:36 Dose: 10 mg MAR Blood Pressure Document 05/18/17 09:36 MCV (Rec: 05/18/17 09:36 MCV [id number]) Blood Pressure Blood Pressure (100/60-150/90) 117/73 Aspirin (Ecotrin) 81 mg PO DAILY [facility] Last Admin: 05/18/17 09:36 Dose: 81 mg Atorvastatin Calcium (Lipitor) 40 mg PO DAILY [facility] Last Admin: 05/18/17 09:35 Dose: 40 mg Chlorthalidone (Hygroton) 25 mg PO DAILY [facility] Last Admin: 05/18/17 09:35 Dose: 25 mg Clopidogrel Bisulfate (Plavix) 75 mg PO DAILY [facility] Last Admin: 05/18/17 09:35 Dose: 75 mg Donepezil HCl (Aricept) 10 mg PO HS [facility] Last Admin: 05/17/17 23:43 Dose: 10 mg Ezetimibe (Zetia) 10 mg PO DAILY [facility] Last Admin: 05/18/17 09:34 Dose: 10 mg Ferrous Sulfate (Feosol) 324 mg PO BID [facility] Last Admin: 05/18/17 09:36 Dose: 324 mg Gabapentin (Neurontin) 300 mg PO DAILY [facility] PRN Reason: Protocol Last Admin: 05/18/17 09:35 Dose: 300 mg Behavioural Document 05/18/17 09:35 MCV (Rec: 05/18/17 09:35 MCV [id number]) Behavior Behavior for Medication: Anxiety Glipizide (Glucotrol Xl) 10 mg PO DAILY [facility] Last Admin: 05/18/17 09:34 Dose: 10 mg Sodium Chloride (Sodium Chloride 0.9%) 1,000 mls @ 80 mls/hr IV .[id number] [facility] Stop: 05/18/17 23:59 Insulin Human Regular (Humulin R Low) 0 units SC [facility] PRN Reason: Protocol Last Admin: 05/18/17 09:37 Dose: Not Given Non-Admin Reason: Blood Sugar Parameter MAR Blood Glucose Document 05/18/17 09:37 MCV (Rec: 05/18/17 09:37 MCV [id number] Blood Glucose Finger Stick Blood Glucose (70-120) 111 Insulin Human Regular (Humulin R Low) 0 units SC ACHS [facility] PRN Reason: Protocol Last Admin: 05/18/17 09:38 Dose: Memantine (Namenda) 10 mg PO DAILY [facility] Last Admin: 05/18/17 09:35 Dose: 10 mg Metoprolol Tartrate (Lopressor) 25 mg PO BID [facility] Last Admin: 05/18/17 09:36 Dose: 25 mg MAR Pulse and Blood Pressure Document 05/18/17 09:36 MCV (Rec: 05/18/17 09:37 MCV [id number]) Pulse Pulse Rate (60-90) 67 Blood Pressure Blood Pressure (100/60-150/90) 117/73 Non-Formulary Medication (Nebivolol [Bystolic]) 5 mg PO DAILY [facility] Ondansetron HCl (Zofran Inj) 4 mg IVP Q6 PRN PRN Reason: Nausea/Vomiting Last Admin: 05/18/17 08:01 Dose: 4 mg IVP Administration Document 05/18/17 08:01 MCV (Rec: 05/18/17 08:01 MCV [id number] Charges for Administration # of IVP Administrations 1 Pantoprazole Sodium (Protonix Ec Tab) 40 mg PO DAILY [facility] Last Admin: 05/18/17 09:35 Dose: 40 mg Ropinirole HCl (Requip) 0.25 mg PO DAILY [facility] Last Admin: 05/18/17 09:35 Dose: 0.25 mg Sodium Bicarbonate (Sodium Bicarbonate Tab) 650 mg PO BID [facility] Last Admin: 05/18/17 09:35 Dose: 650 mg Discontinued Medications Acetaminophen (Tylenol 325mg Tab) 975 mg PO STAT STA Stop: 05/17/17 15:14 Last Admin: 05/17/17 15:34 Dose: Not Given Non-Admin Reason: Patient Refused Lactated Ringer's (Lactated Ringer's) 1,000 mls @ 1,000 mls/hr IV BOLUS STA Stop: 05/17/17 13:28 Last Admin: 05/17/17 12:56 Dose: 1,000 mls/hr eMAR Start Stop Document 05/17/17 12:56 GMD (Rec: 05/17/17 12:57 GMD [id number]) Intravenous Solution Start Date 05/17/17 Start Time 12:56 End Date 05/17/17 End time 13:56 Total Infusion Time 60 Sodium Chloride (Sodium Chloride 0.9%) 1,000 mls @ 50 mls/hr IV .Q20H SURESH Stop: 05/18/17 23:59 Last Admin: 05/17/17 20:18 Dose: 50 mls/hr eMAR Start Stop Document 05/17/17 20:18 GMD (Rec: 05/17/17 20:18 GMD [id number]) Intravenous Solution Start Date 05/17/17 Start Time 20:18 Ondansetron HCl (Zofran Inj) 4 mg IVP STAT STA Stop: 05/17/17 12:30 Last Admin: 05/17/17 12:56 Dose: 4 mg IVP Administration Document 05/17/17 12:56 GMD (Rec: 05/17/17 12:56 GMD [id number]) Charges for Administration # of IVP Administrations 1 Pantoprazole Sodium (Protonix Inj) 40 mg IVP DAILY [facility] Last Admin: 05/18/17 09:34 Dose: 40 mg IVP Administration Document 05/18/17 09:34 MCV (Rec: 05/18/17 09:34 MCV [id number] Charges for Administration # of IVP Administrations 1 Tramadol HCl (Ultram) 50 mg PO ONCE ONE Stop: 05/17/17 23:32 Last Admin: 05/17/17 23:43 Dose: 50 mg [facility] Pain Assessment Document 05/17/17 23:43 KT (Rec: 05/17/17 23:43 KT [id number] Pain Reassessment Is this a pain reassessment? No Presence of Pain Presence of Pain Yes Re-Assess: JIM Pain Assessment Document 05/18/17 00:43 KT (Rec: 05/18/17 03:59 KT [facility]) Pain Reassessment Is this a pain reassessment? Yes Sleep Is patient sleeping during reassessment? Yes - Scribe Statement The provider has reviewed the documentation as recorded by the Merle Ramos Provider Scribe Attestation: All medical record entries made by the Scribe were at my direction and personally dictated by me. I have reviewed the chart and agree that the record accurately reflects my personal performance of the history, physical exam, medical decision making, and the department course for this patient. I have also personally directed, reviewed, and agree with the discharge instructions and disposition. Disposition/Present on Arrival - Present on Arrival Any Indicators Present on Arrival: No History of DVT/PE: No History of Uncontrolled Diabetes: No Urinary Catheter: No History of Decub. Ulcer: No History Surgical Site Infection Following: None - Disposition Have Diagnosis and Disposition been Completed?: Yes Diagnosis: Leukocytosis, Diarrhea, Renal insufficiency Disposition: HOSPITALIZED Disposition Time: 07:00 Condition: FAIR
[2017-05-17 13:13] LABS: BASO # 0.01 K/mm3 (0.0-2.0); BASO % 0.1 % (0.0-3.0); EOS # 0.4 (0.0-0.7); EOS % 2.5 % (1.5-5.0); GRAN # 12.14 (1.4-6.5); GRAN % 84.4 % (50.0-68.0); HEMOGLOBIN 10.2 g/dL (14.0-18.0); LYMPH # 1.3 (1.2-3.4); MEAN CELL VOLUME 84.3 fl (80.0-105.0); MEAN CORPUSCULAR HEMOGLOBIN 27.6 pg (25.0-35.0); MEAN CORPUSCULAR HGB CONC 32.8 g/dl (31.0-37.0); MEAN PLATELET VOLUME 9.9 fl (7.0-11.0); MONO # 0.6 (0.1-0.6); RBC 3.69 10^6/uL (3.5-6.1); RED CELL DISTRIBUTION WIDTH 16.2 % (11.5-14.5); WHITE BLOOD COUNT 14.4 10^3/ul (4.5-11.0)
[2017-05-17 13:23] LABS: ALB/GLOB RATIO 1.4 (1.1-1.8); ALBUMIN 3.8 g/dL (3.0-4.8); CALCIUM 9.9 mg/dL (8.4-10.5)
[2017-05-17 13:24] LABS: TROPONIN I 0.02 ng/mL
[2017-05-17] MEDS ORDERED: Iohexol 240 (50 ml) ONE (13:32)
[2017-05-17 13:35] LABS: INR 0.98 (0.93-1.08); PARTIAL THROMBOPLASTIN TIME 29.3 Seconds (25.1-36.5); PROTHROMBIN TIME 11.2 SECONDS (9.4-12.5)
--- NOTE | 2017-05-17 13:59 | RAD ---
HISTORY: abd pain COMPARISON: 05/09/2017 FINDINGS: LUNGS: No active pulmonary disease. PLEURA: No significant pleural effusion identified, no pneumothorax apparent. CARDIOVASCULAR: Normal. OSSEOUS STRUCTURES: No significant abnormalities. VISUALIZED UPPER ABDOMEN: Normal. OTHER FINDINGS: None. IMPRESSION: No active disease.
[2017-05-17 14:53] LABS: URINE BILIRUBIN NEGATIVE (NEGATIVE); URINE BLOOD TRACE-INTACT (NEGATIVE); URINE GLUCOSE (UA) NEGATIVE (NEGATIVE); URINE LEUKOCYTE ESTERASE NEGATIVE Leu/uL (NEGATIVE); URINE NITRATE NEGATIVE (NEGATIVE); URINE PROTEIN 100 mg/dL (<30 mg/dL); URINE UROBILINOGEN 0.2 E.U./dL (<1 E.U./dL)
[2017-05-17 14:54] LABS: URINE APPEARANCE CLEAR (CLEAR); URINE COLOR YELLOW (YELLOW)
[2017-05-17 15:00] LABS: URINE EPITHELIAL CELLS 0 - 2 /hpf (0-5); URINE RBC 0 - 2 /hpf (0-2); URINE WBC 0 - 2 /hpf (0-6)
[2017-05-17 15:01] LABS: URINE BACTERIA TRACE (NEG)
--- NOTE | 2017-05-17 17:41 | CT ---
PROCEDURE: CT Abdomen and Pelvis with contrast HISTORY: abd pain diarrhea COMPARISON: Abdomen pelvis CT examination with contrast 05/08/2017. TECHNIQUE: Helical CT of the abdomen and pelvis was performed following oral contrast administration. Intravenous contrast was not administered as per referring physician request. Contrast dose: None Radiation dose: Total exam DLP = 256.65 mGy-cm. This CT exam was performed using one or more of the following dose reduction techniques: Automated exposure control, adjustment of the mA and/or kV according to patient size, and/or use of iterative reconstruction technique. FINDINGS: LOWER THORAX: Cardiomegaly is reiterated. Trace pericardial effusion again evident. Prior questioned right basilar infiltrate is not identified currently. LIVER: Unremarkable. No gross lesion or ductal dilatation. GALLBLADDER AND BILE DUCTS: Gallbladder appears partially contracted. No radiodense cholelithiasis is identified in the interval. PANCREAS: Unremarkable. No gross lesion or ductal dilatation. SPLEEN: Unremarkable. ADRENALS: Unremarkable. No mass. KIDNEYS AND URETERS: Minimal streaky perinephric changes are again identified. No obstructive uropathy or radiodense urolithiasis bilaterally. VASCULATURE: Unremarkable. No aortic aneurysm. BOWEL: Unremarkable. No obstruction. No gross mural thickening. APPENDIX: The appendix is not identified. No CT evidence of appendicitis. . PERITONEUM: Unremarkable. No free fluid. No free air. LYMPH NODES: Unremarkable. No enlarged lymph nodes. BLADDER: Unremarkable. REPRODUCTIVE: Prostate gland is enlarged. BONES: No acute fracture. OTHER FINDINGS: Proximal right femoral fixation hardware generates artifact obscuring inferior pelvis evaluation. Note is made of a lipoma at the left lateral abdominal wall once again. IMPRESSION: 1. No bowel obstruction, mesenteric edema, ascites or free intraperitoneal gas is identified. No suspicious for findings identified involving the left hemicolon in particular. 2. Stable bilateral streaky perinephric changes. 3. Enlarged prostate gland again noted. 4. Cardiomegaly and trace pericardial effusion again noted. Resolution of previously suspected right basilar patchy pneumonia.
[2017-05-17] MEDS ORDERED: Sodium Chloride 0.9% 1,000 ML IV SCH (18:30)
--- NOTE | 2017-05-17 21:15 | CARD ---
APPROVED REPORT EKG Measurement Heart [id number] <Conclusion> Normal sinus rhythm Left axis deviation Minimal voltage criteria for LVH, may be normal variant Septal infarct, age undetermined Abnormal ECG
--- NOTE | 2017-05-17 23:52 | CP.PCM.PN ---
Subjective - Date & Time of Evaluation Date of Evaluation: 05/17/17 Time of Evaluation: 23:50 - Subjective Subjective: Patient was seen at bedside. He complained of right side ribs pain x 10 days. States that he can't have motrin, naprosyn because of renal issue. Has no other complaints. Denies sob, nausea, sweating , palpitation. Medical record was reviewed. This 62 year old male admitted with fatigue, tiredness,vomiting , diarrhoea, abdominal pain, leukocytosis hyperglycemia. Has PMH of HTN, COPD, PNA, DM II, HLD, Chronic left eye blurry vision, renal insufficiency, CAD, chronic mi with 7 stents. Objective - Vital Signs/Intake and Output Vital Signs (last 24 hours): Temp Pulse Resp BP Pulse Ox 98.4 F 68 20 137/92 H 99 05/17/17 13:03 05/17/17 23:00 05/17/17 23:00 05/17/17 23:00 05/17/17 23:00 - Medications Medications: Current Medications Amlodipine Besylate (Norvasc) 10 mg PO DAILY [facility] Aspirin (Ecotrin) 81 mg PO DAILY [facility] Atorvastatin Calcium (Lipitor) 40 mg PO DAILY [facility] Chlorthalidone (Hygroton) 25 mg PO DAILY [facility] Clopidogrel Bisulfate (Plavix) 75 mg PO DAILY [facility] Donepezil HCl (Aricept) 10 mg PO HS [facility] Ezetimibe (Zetia) 10 mg PO DAILY [facility] Ferrous Sulfate (Feosol) 324 mg PO BID [facility] Gabapentin (Neurontin) 300 mg PO DAILY [facility] PRN Reason: Protocol Glipizide (Glucotrol Xl) 10 mg PO DAILY [facility] Sodium Chloride (Sodium Chloride 0.9%) 1,000 mls @ 50 mls/hr IV .Q20H [facility] Stop: 05/18/17 23:59 Last Admin: 05/17/17 20:18 Dose: 50 mls/hr Insulin Human Regular (Humulin R Low) 0 units SC ACHS [facility] PRN Reason: Protocol Insulin Human Regular (Humulin R Low) 0 units SC ACHS [facility] PRN Reason: Protocol Memantine (Namenda) 10 mg PO DAILY [facility] Metoprolol Tartrate (Lopressor) 25 mg PO BID [facility] Non-Formulary Medication (Nebivolol [Bystolic]) 5 mg PO DAILY [facility] Ondansetron HCl (Zofran Inj) 4 mg IVP Q6 PRN PRN Reason: Nausea/Vomiting Pantoprazole Sodium (Protonix Ec Tab) 40 mg PO DAILY [facility] Pantoprazole Sodium (Protonix Inj) 40 mg IVP DAILY [facility] Ropinirole HCl (Requip) 0.25 mg PO DAILY [facility] - Labs Labs: PT 11.2 SECONDS (9.4-12.5) 05/17/17 12:50 INR 0.98 (0.93-1.08) 05/17/17 12:50 APTT 29.3 Seconds (25.1-36.5) 05/17/17 12:50 - Constitutional Appears: Well, No Acute Distress - Head Exam Head Exam: ATRAUMATIC, NORMAL INSPECTION, NORMOCEPHALIC - Eye Exam Eye Exam: Normal appearance - ENT Exam ENT Exam: Normal External Ear Exam - Neck Exam Neck Exam: Normal Inspection - Respiratory Exam Respiratory Exam: NORMAL BREATHING PATTERN - Cardiovascular Exam Cardiovascular Exam: absent: JVD - GI/Abdominal Exam GI & Abdominal Exam: absent: Distended - Rectal Exam Rectal Exam: Deferred - Exam Additional comments: Deferred. - Extremities Exam Extremities Exam: Normal Inspection - Back Exam Back Exam: NORMAL INSPECTION - Neurological Exam Neurological Exam: Alert, Awake, Oriented x3 - Psychiatric Exam Psychiatric exam: Normal Affect, Normal Mood - Skin Skin Exam: Normal Color Assessment and Plan - Assessment and Plan (Free Text) Assessment: Ribs pain. Feeling of not being well. HTN. HLD. DM II. COPD. CAD. Plan: Ultram 50 mg PO once. Later on patient wanted to see me again. He was saying that he was not feeling well. An EKG was ordered which revealed no significant abnormality. He felt better without any intervention. Troponin was negative.
[2017-05-18] MEDS: Insulin Reg-LOW-Coverage SC SCH ×10 (00:23→21:13)
--- NOTE | 2017-05-18 06:14 | CON ---
REASON FOR CONSULTATION AND FOLLOWUP: Cardiac evaluation, history of coronary artery disease, hypertension, hyperlipidemia, history of [place], admitted with vomiting, diarrhea, abdominal pain, and generalized weakness. BRIEF CLINICAL HISTORY: This is a 62-year-old male, who was recently discharged from the hospital with past medical history significant for FL, history of multiple stents approximately 7 stents, history of chronic renal insufficiency, baseline creatinine of 2 to 2.4, recently discharged, came in with a complaint of vomiting, abdominal pain, diarrhea and feeling very weak, lethargic. Denies any chest pain, shortness of breath or any palpitation. Prior to that, patient had a flu-like symptoms a week ago. PAST MEDICAL HISTORY: Significant for hypertension, hyperlipidemia, coronary artery disease, chronic renal insufficiency, status post FL, and status post multiple stents. SOCIAL HISTORY: Denies any history of alcohol abuse. CARDIAC WORKUPS: Recent cardiac workup as follows: Patient had a stress test on 06/15/2016 that showed abnormal myocardial perfusion study, fixed defect. No ischemia. Ejection fraction 48% dated 06/15/2016. Patient walked on the treadmill for 6 minutes and 6 seconds, Vince protocol, due to fatigue, stopped. Predicted heart rate 84%, no chest pain, no ST-T changes noted. The patient had echocardiography on last admission dated 05/06/2017 that showed ejection fraction of 55%, trace aortic regurgitation, aortic sclerosis versus mild , mitral regurgitation trace to mild, mild tricuspid regurgitation, systolic pressure of 55. CURRENT MEDICATIONS: Patient at home is taking Requip, Norvasc, bicarbonate, Zocor, Protonix, Bystolic, metformin, Namenda, glipizide, ferrous sulfate, Aricept, clopidogrel, aspirin and chlorthalidone. REVIEW OF SYSTEMS: As per HPI. ALLERGIES: NO KNOWN DRUG ALLERGIES. PHYSICAL EXAMINATION: VITAL SIGNS: Temperature is afebrile, heart rate 71, blood pressure 121/75. HEENT: PERRLA. Extraocular muscles intact. NECK: Supple. No carotid bruits or thyromegaly. CHEST: Clear to auscultation. HEART: S1 and S2 regular. ABDOMEN: Soft. EXTREMITIES: Clubbing and cyanosis negative. LABORATORY DATA: Blood workup as follows: WBC 14.4, hemoglobin 10.8, hematocrit 31.1, and platelet count 346. Chemistry shows sodium 137, potassium 5.3, chloride 103, carbon dioxide 20, anion gap of 19, BUN 15, and creatinine 3.0. Troponin 0.02. CAT scan of the abdomen and pelvis, there is stable bilateral perinephric changes noted, enlarged prostate gland, cardiomegaly, trace pericardial effusion. Previously noted patchy infiltrate of the lung completely resolved. EKG shows normal sinus T-inversion in V5-V6 noted. IMPRESSION: Vomiting, diarrhea, acute kidney disease, chronic renal insufficiency, diabetes, hypertension, hyperlipidemia, history of coronary artery disease, history of multiple stents, preserved left ventricular function. Most recent echo shows , mild mitral regurgitation, moderate tricuspid regurgitation. RECOMMENDATION: Cason-culture, resume aspirin and Plavix, blood culture, and follow up labs in the morning. Hold the antibiotics for now until we get the leucocytosis, ID consult, Renal consult. We will follow with you. Thank you, for providing us the opportunity in taking care of the patient, Anyi Herrera. Anyi Jacobo MD
[2017-05-18 07:10] LABS: BASO # 0.01 K/mm3 (0.0-2.0); BASO % 0.1 % (0.0-3.0); EOS # 0.6 (0.0-0.7); EOS % 7.5 % (1.5-5.0); GRAN # 4.46 (1.4-6.5); GRAN % 57.6 % (50.0-68.0); HEMOGLOBIN 9.6 g/dL (14.0-18.0); LYMPH # 2.2 (1.2-3.4); LYMPH % 28.3 % (22.0-35.0); MEAN CELL VOLUME 83.2 fl (80.0-105.0); MEAN CORPUSCULAR HEMOGLOBIN 27.7 pg (25.0-35.0); MEAN CORPUSCULAR HGB CONC 33.3 g/dl (31.0-37.0); MEAN PLATELET VOLUME 9.8 fl (7.0-11.0); MONO # 0.5 (0.1-0.6); MONO % 6.5 % (1.0-6.0); RBC 3.46 10^6/uL (3.5-6.1); RED CELL DISTRIBUTION WIDTH 16.3 % (11.5-14.5); WHITE BLOOD COUNT 7.7 10^3/ul (4.5-11.0)
[2017-05-18 07:15] LABS: TROPONIN I 0.02 ng/mL
[2017-05-18 07:35] LABS: MAGNESIUM 1.8 mg/dL (1.7-2.2)
[2017-05-18 07:38] LABS: ALB/GLOB RATIO 1.3 (1.1-1.8); ALBUMIN 3.4 g/dL (3.0-4.8); CALCIUM 9.4 mg/dL (8.4-10.5)
[2017-05-18 07:52] LABS: IRON 38 ug/dL (45-180)
[2017-05-18 08:16] LABS: TOTAL IRON BINDING CAPACITY 292 ug/dL (261-462)
[2017-05-18 08:35] LABS: % IRON SATURATION 13 % (20-55)
--- NOTE | 2017-05-18 08:41 | HP ---
CHIEF COMPALINT: Fatigue, tired, nausea, vomiting. HISTORY OF PRESENT ILLNESS: Mr. Anyi Herrera is a 62-year-old male with past medical history of hypertension, hypercholesterolemia, diabetes mellitus, chronic left eye blurry vision/renal insufficiency, and chronic [place] with 7 stents, came to the emergency room, complaining of vomiting, diarrhea, abdominal pain, feeling fatigued and tired, no headache for the past few days. Patient denied any sore throat, cough, chest pain. No hematuria or hematochezia. PAST MEDICAL HISTORY: Hypertension, respiratory disorder, COPD, pneumonia, diabetes mellitus type 2. ALLERGIES: PATIENT IS NOT ALLERGIC TO ANY MEDICATION. HABITS: Never smoked. No drugs. No ethnol Labs reviewed by me. REVIEW OF SYSTEMS: The patient was examined at the bedside, looking comfortable. No nausea, vomiting, diarrhea. No hematuria. No hematochezia. No swelling of the legs. No chest pain. No palpitation. No headache. No dizziness. PHYSICAL EXAMINATION: VITAL SIGNS: Temperature 98.4, pulse 80 , respiratory rate 18, blood pressure 129/75, pulse oximetry 98. HEENT: Head normocephalic, atraumatic. Eyes PERRLA. Extraocular muscles are intact. Conjunctivae clear. Nose patent. NECK: Supple. No carotid bruit. No JVD or thyromegaly. CHEST: Bilaterally symmetrical. HEART: S1 and S2 positive. LUNGS: Clear to auscultation. ABDOMEN: Soft. Bowel sounds present. No organomegaly. EXTREMITIES: No edema. No cyanosis. NEUROLOGICAL: The patient is awake and alert. Moving all 4 extremities. No focal deficits. LABORATORY DATA: White blood cells 14.4, hemoglobin 10.2, hematocrit 31.2, platelets 347. Sodium 137, potassium 5.3, BUN 51, creatinine 3.0. ASSESSMENT AND PLAN: Mr. Anyi Herrera is a 62-year-old male with leukocytosis, anemia, hypokalemia replaced, renal insufficiency, hyperglycemia. Patient was recently discharged from the hospital with aspiration pneumonia and now he came back. CAT scan of the abdomen and pelvis done. Echocardiography done. Continue present treatment. Repeat labs. We will follow up. Gill Hoffman MD [facility]
[2017-05-18] MEDS: GlipiZIDE 10 mg SR Tab PO SCH (09:34)
[2017-05-18] MEDS: Pantoprazole 40 mg EC Tab PO SCH (09:35)
[2017-05-18] MEDS ORDERED: Sodium Chloride 0.9% 1,000 ML IV SCH (10:51)
--- NOTE | 2017-05-18 13:44 | CP.PCM.CON ---
History of Present Illness - History of Present Illness History of Present Illness: Seen and examined at the bedside earlier today, chart reviewed. Request for GI consultation is for nausea and vomiting. HPI: This is a 62-year-old male with a past medical history of coronary artery disease with stent on Plavix, COPD, recent pneumonia and hypertension, gastroparesis with history of diabetes came to the emergency room with complaints of nausea, vomiting, diarrhea and abdominal pain. Feeling generalized weakness. Patient denies any fever or chills shortness of breath or chest pain he was recently discharged from [facility] over a week ago for pneumonia. The patient did have an endoscopy on 05/07/17 for same complaints of nausea and vomiting and found to have chronic gastritis, gastroparesis and normal duodenum. The patient reported that he last had nausea and vomiting this a.m., he also complaining of dizziness. Patient states that nausea occurs at any time. His last bowel movement was yesterday with no diarrhea no reports of bleeding. He was able to tolerate eggs and liquid this morning. He did have a CT scan of abdomen and pelvis with oral contrast on admission yesterday and no acute findings were found in the bowel, it was unremarkable no obstruction or gross mural thickening. Noted to have an enlarged prostate, cardiomegaly and resolution of previously suspected right basilar patchy pneumonia. Again he is noted to have lipoma at the left lateral abdominal wall once again. PMH:Retinitis pigmentosa,Hypercholesterolemia,Hypertension,Esophageal ulcer, healed, recent memory disturbance, DM type II, HTN, gastroparesis, recent Pneumonia Surgical History: Prior surgeries include coronary artery catheterization with stenting (X8) and broken femur. Last Colonoscopy was done on Apr 30, 2016, last EGD on 10/09/16. Social History: Non smoker. The patient does not drink alcoholic beverages. Allergy: No Known Allergies MEDS: reviewed as per MAR, significant for Plavix Family History: noncontributory ROS: systems reviewed, with positive findings, see HPI Past Patient History - Infectious Disease Hx of Infectious Diseases: None - Past Social History Smoking Status: Never Smoked - CARDIAC Hx Cardiac Disorders: Yes Hx Hypertension: Yes - PULMONARY Hx Respiratory Disorders: Yes Hx Asthma: No Hx Bronchitis: No Hx Chronic Obstructive Pulmonary Disease (COPD): No Hx Emphysema: No Hx Pneumonia: Yes Hx Respiratory Aspiration: No Hx Respiratory Tract Infection: No Hx Sleep Apnea: No Hx Tuberculosis: No - NEUROLOGICAL Hx Neurological Disorder: No Hx Alzheimer's Disease: No HX Cerebrovascular Accident: No Hx Dementia: No Hx Dizziness: No Hx Meningitis: No Hx Migraine: No Hx Parkinson's Disease: No Hx Seizures: No Hx Transient Ischemic Attacks (TIA): No - HEENT Hx HEENT Problems: Yes Hx Cataracts: Yes Other/Comment: poor vision - RENAL Hx Chronic Kidney Disease: Yes Hx Dialysis: No Hx Neurogenic Bladder: No Hx Pyelonephritis: No Hx Renal (Kidney) Cancer: No Hx Renal Failure: No - ENDOCRINE/METABOLIC Hx Diabetes Mellitus Type 2: Yes - HEMATOLOGICAL/ONCOLOGICAL Hx Blood Disorders: Yes Hx AIDS: No Hx Anemia: Yes Hx Cancer: No Hx Chemotherapy: No Hx Cirrhosis: No Hx Hepatitis A: No Hx Hepatitis B: No Hx Hepatitis C: No Hx Human Immunodeficiency Virus (HIV): No Hx Metastesis: No Hx Shingles: No Hx Unexplained Bleeding: No - INTEGUMENTARY Hx Dermatological Problems: No Hx Basil Cell: No Hx Eczema: No Hx Melanoma: No Hx Psoriasis: No Hx Squamous Cell: No - MUSCULOSKELETAL/RHEUMATOLOGICAL Hx Musculoskeletal Disorders: No Hx Falls: No - GASTROINTESTINAL Hx Gastrointestinal Disorders: Yes Hx Colostomy: No Hx Crohn's Disease: No Hx Diverticulitis: No Hx Gall Bladder Disease: No Hx Gastroesophageal Reflux: Yes Hx Ileostomy: No Hx Liver Failure: No Hx Pancreatitis: No HX Swallowing Problems: No - GENITOURINARY/GYNECOLOGICAL Hx Genitourinary Disorders: No Hx Hematuria: No Hx Incontinence: No Hx Prostate Problems: No Hx Sexually Transmitted Disorders: No Hx Urinary Tract Infection: No - PSYCHIATRIC Hx Emotional Abuse: No Hx Physical Abuse: No - SURGICAL HISTORY Hx Surgeries: Yes Hx Amputation: No Hx Appendectomy: No Hx Cholecystectomy: No Hx Coronary Stent: Yes (8) Hx Gastric Bypass Surgery: No Hx Hysterectomy: No Hx Joint Replacement: No Hx Kidney Transplant: No Hx Liver Transplant: No Hx Mastectomy: No Hx Musculoskeletal Surgery: Yes (right femur pinning and plate insertion) Hx Open Heart Surgery: No Hx Orthopedic Surgery: No Hx Splenectomy: No Hx Valve Replacement: No - ANESTHESIA Hx Anesthesia Reactions: No Hx Malignant Hyperthermia: No Meds Allergies/Adverse Reactions: Allergies Allergy/AdvReac Type Severity Reaction Status Date / Time No Known Allergies Allergy Verified 05/05/17 08:37 - Medications Medications: Current Medications Amlodipine Besylate (Norvasc) 10 mg PO DAILY [facility] Last Admin: 05/18/17 09:36 Dose: 10 mg Aspirin (Ecotrin) 81 mg PO DAILY [facility] Last Admin: 05/18/17 09:36 Dose: 81 mg Atorvastatin Calcium (Lipitor) 40 mg PO DAILY [facility] Last Admin: 05/18/17 09:35 Dose: 40 mg Chlorthalidone (Hygroton) 25 mg PO DAILY [facility] Last Admin: 05/18/17 09:35 Dose: 25 mg Clopidogrel Bisulfate (Plavix) 75 mg PO DAILY [facility] Last Admin: 05/18/17 09:35 Dose: 75 mg Donepezil HCl (Aricept) 10 mg PO [facility] Last Admin: 05/17/17 23:43 Dose: 10 mg Ezetimibe (Zetia) 10 mg PO DAILY [facility] Last Admin: 05/18/17 09:34 Dose: 10 mg Ferrous Sulfate (Feosol) 324 mg PO BID [facility] Last Admin: 05/18/17 09:36 Dose: 324 mg Gabapentin (Neurontin) 300 mg PO DAILY [facility] PRN Reason: Protocol Last Admin: 05/18/17 09:35 Dose: 300 mg Glipizide (Glucotrol Xl) 10 mg PO DAILY [facility] Last Admin: 05/18/17 09:34 Dose: 10 mg Sodium Chloride (Sodium Chloride 0.9%) 1,000 mls @ 80 mls/hr IV .[id number] [facility] Stop: 05/18/17 23:59 Insulin Human Regular (Humulin R Low) 0 units SC ACHS [facility] PRN Reason: Protocol Last Admin: 05/18/17 09:37 Dose: Not Given Insulin Human Regular (Humulin R Low) 0 units SC ACHS [facility] PRN Reason: Protocol Last Admin: 05/18/17 09:38 Dose: Not Given Memantine (Namenda) 10 mg PO DAILY [facility] Last Admin: 05/18/17 09:35 Dose: 10 mg Metoprolol Tartrate (Lopressor) 25 mg PO BID [facility] Last Admin: 05/18/17 09:36 Dose: 25 mg Non-Formulary Medication (Nebivolol [Bystolic]) 5 mg PO DAILY [facility] Ondansetron HCl (Zofran Inj) 4 mg IVP Q6 PRN PRN Reason: Nausea/Vomiting Last Admin: 05/18/17 08:01 Dose: 4 mg Pantoprazole Sodium (Protonix Ec Tab) 40 mg PO DAILY [facility] Last Admin: 05/18/17 09:35 Dose: 40 mg Ropinirole HCl (Requip) 0.25 mg PO DAILY [facility] Last Admin: 05/18/17 09:35 Dose: 0.25 mg Sodium Bicarbonate (Sodium Bicarbonate Tab) 650 mg PO BID [facility] Last Admin: 05/18/17 09:35 Dose: 650 mg Physical Exam - Constitutional Appears: No Acute Distress - Head Exam Head Exam: NORMOCEPHALIC - Eye Exam Eye Exam: Normal appearance. absent: Scleral icterus - ENT Exam ENT Exam: Mucous Membranes Moist - Neck Exam Neck exam: Positive for: Normal Inspection - Respiratory Exam Respiratory Exam: NORMAL BREATHING PATTERN. absent: Respiratory Distress - Cardiovascular Exam Cardiovascular Exam: +S1, +S2 - GI/Abdominal Exam GI & Abdominal Exam: Normal Bowel Sounds, Soft. absent: Guarding, Rebound, Tenderness - Extremities Exam Extremities exam: Positive for: pedal pulses present. Negative for: calf tenderness, pedal edema - Neurological Exam Neurological exam: Alert, Oriented x3 - Skin Skin Exam: Dry, Warm Results - Vital Signs Recent Vital Signs: Last Vital Signs Temp 98.4 F 05/18/17 07:30 Pulse 67 05/18/17 09:36 Resp 20 05/18/17 07:30 BP 117/73 05/18/17 09:36 Pulse Ox 98 05/18/17 07:30 - Labs Result Diagrams: 05/18/17 06:15 05/18/17 06:15 Labs: Laboratory Results - last 24 hr 05/17/17 05/18/17 05/18/17 20:15 00:37 06:15 WBC 7.7 D RBC 3.46 L Hgb 9.6 L Hct 28.8 L MCV 83.2 MCH 27.7 MCHC 33.3 RDW 16.3 H Plt Count 330 MPV 9.8 Gran % 57.6 Lymph % (Auto) 28.3 [place] % (Auto) 6.5 H Eos % (Auto) 7.5 H Baso % (Auto) 0.1 Gran # 4.46 Lymph # (Auto) 2.2 [place] # (Auto) 0.5 Eos # (Auto) 0.6 Baso # (Auto) 0.01 Sodium Potassium Chloride Carbon Dioxide Anion Gap BUN Creatinine Est GFR ( Amer) Est GFR (Non-Af Amer) POC Glucose (mg/dL) 101 Random Glucose Hemoglobin A1c Calcium Phosphorus Magnesium Iron TIBC % Saturation Ferritin Total Bilirubin AST ALT Alkaline Phosphatase Troponin I Total Protein Albumin Globulin Albumin/Globulin Ratio Triglycerides Cholesterol LDL Cholesterol Direct HDL Cholesterol Procalcitonin TSH 3rd Generation Influenza Typ A,B (EIA) Negative for flu a/b 05/18/17 05/18/17 05/18/17 06:15 06:15 06:15 WBC RBC Hgb Hct MCV MCH MCHC RDW Plt Count MPV Gran % Lymph % (Auto) [place] % (Auto) Eos % (Auto) Baso % (Auto) Gran # Lymph # (Auto) [place] # (Auto) Eos # (Auto) Baso # (Auto) Sodium 139 Potassium 4.5 Chloride 106 Carbon Dioxide 24 Anion Gap 13 BUN 44 H Creatinine 2.9 H Est GFR ( Amer) 27 Est GFR (Non-Af Amer) 22 POC Glucose (mg/dL) Random Glucose 96 Hemoglobin A1c 6.3 Calcium 9.4 Phosphorus Magnesium Iron TIBC % Saturation Ferritin 83.0 Total Bilirubin 0.5 AST 28 ALT 26 Alkaline Phosphatase 51 Troponin I Total Protein 6.0 Albumin 3.4 Globulin 2.6 Albumin/Globulin Ratio 1.3 Triglycerides 111 Cholesterol 82 L LDL Cholesterol Direct 30 HDL Cholesterol 29 Procalcitonin TSH 3rd Generation 4.77 H Influenza Typ A,B (EIA) 05/18/17 05/18/17 05/18/17 06:15 06:15 07:07 WBC RBC Hgb Hct MCV MCH MCHC RDW Plt Count MPV Gran % Lymph % (Auto) [place] % (Auto) Eos % (Auto) Baso % (Auto) Gran # Lymph # (Auto) [place] # (Auto) Eos # (Auto) Baso # (Auto) Sodium Potassium Chloride Carbon Dioxide Anion Gap BUN Creatinine Est GFR ( Amer) Est GFR (Non-Af Amer) POC Glucose (mg/dL) 97 Random Glucose Hemoglobin A1c Calcium Phosphorus 4.3 Magnesium 1.8 Iron 38 L TIBC 292 % Saturation 13 L Ferritin Total Bilirubin AST ALT Alkaline Phosphatase Troponin I 0.02 Total Protein Albumin Globulin Albumin/Globulin Ratio Triglycerides Cholesterol LDL Cholesterol Direct HDL Cholesterol Procalcitonin TSH 3rd Generation Influenza Typ A,B (EIA) 05/18/17 05/18/17 07:30 11:32 WBC RBC Hgb Hct MCV MCH MCHC RDW Plt Count MPV Gran % Lymph % (Auto) [place] % (Auto) Eos % (Auto) Baso % (Auto) Gran # Lymph # (Auto) [place] # (Auto) Eos # (Auto) Baso # (Auto) Sodium Potassium Chloride Carbon Dioxide Anion Gap BUN Creatinine Est GFR ( Amer) Est GFR (Non-Af Amer) POC Glucose (mg/dL) 227 H Random Glucose Hemoglobin A1c Calcium Phosphorus Magnesium Iron TIBC % Saturation Ferritin Total Bilirubin AST ALT Alkaline Phosphatase Troponin I Total Protein Albumin Globulin Albumin/Globulin Ratio Triglycerides Cholesterol LDL Cholesterol Direct HDL Cholesterol Procalcitonin 0.18 L TSH 3rd Generation Influenza Typ A,B (EIA) Assessment & Plan - Assessment and Plan (Free Text) Assessment: Assessment: Leukocytosis Nausea/vomiting/diarrhea, rule out C. difficile recent pneumonia with antibiotic use History of gastroparesis History of diabetes mellitus Coronary artery disease status post stent on Plavix Chronic anemia Chronic kidney disease Plan: Pending stool for C. difficile Diet as tolerated, on solids, patient aware to eat small meals and chew food well on Protonix Monitor H&H and for overt GI bleed On iron supplements On Plavix Zofran when necessary Thank you for this consult and for allowing us to participate in your patient's care, further recommendations based upon clinical course. Seen and discussed with Dr. Bloom.
--- NOTE | 2017-05-18 15:12 | PN ---
DATE: 05/18/2017 REASON FOR CONSULTATION AND FOLLOWUP: Cardiac evaluation, history of coronary artery disease, hypertension, hyperlipidemia, history of [place]. Admitted with vomiting, diarrhea, abdominal pain, generalized weakness. PHYSICAL EXAMINATION: GENERAL: Not in any apparent distress. Complaining of nausea, but no diarrhea, no vomiting, no chest pain. Lying flat in the bed, getting IV fluid. VITAL SIGNS: Temperature afebrile, heart rate , blood pressure 117/73. HEENT: PERRLA. Extraocular muscles intact. NECK: Supple. No carotid bruit or thyromegaly. CHEST: Clear to auscultation. HEART: S1 and S2 regular. ABDOMEN: Soft. EXTREMITIES: Clubbing and cyanosis negative. LABORATORY DATA: WBC 7.7, hemoglobin 9.6, hematocrit 28.8, platelet count 330. Chemistry shows sodium 139, potassium 4.5, chloride 106, carbon dioxide 24, anion gap of 13, BUN 44, creatinine 2.9. Troponin 0.02. TSH 4.77. Total protein 6, albumin 3.4, albumin-globulin ratio 1.3. Triglyceride 111, cholesterol 82, LDL 30, HDL 29. IMPRESSION: Abdominal pain; nausea; diarrhea, stopped; history of coronary artery disease; history of myocardial infarction in the past; history of recent stress test dated 06/15/2016, ejection fraction 48%. Walked on the treadmill 6 minutes and 6 seconds, Vince protocol. No ST-T changes. No ischemia. Recent echo on last admission, 05/06/2017, showed ejection fraction 50%, trace aortic regurgitation, aortic sclerosis with mild aortic stenosis, mitral regurgitation trace to mild, mild tricuspid regurgitation, systolic pressure 55. Acute kidney injury on chronic renal insufficiency, diabetes, hypertension, hyperlipidemia, multiple stents as above, recent stress test negative as above, leukocytosis. Troponin remained flat at 0.02, 0.02. No evidence of acute [place]. Iron-deficiency anemia iron is 38, low TIBC 292, iron saturation 13%. RECOMMENDATION: Panculture was done yesterday, awaiting for the culture back. Continue gentle hydration. Give the Zofran p.r.n. Continue beta maryellen. Continue atorvastatin. Continue aspirin. Follow up the lab in the morning. We will follow with you. Thank you, Dr. Hoffman, for providing us the opportunity in taking care of patient, Anyi Herrera. Anyi Jacobo MD
--- NOTE | 2017-05-18 17:39 | CP.PCM.CON ---
History of Present Illness - History of Present Illness History of Present Illness: 62 year old male with PMH of DM, HTN, chronic anemia, CKD, CAD S/P PCI came in to [facility] complaining of vomiting, nausea, and some loose stools as well as abdominal pain for the past 2-3 days. He denies fever or chills, no chest pain, no cough or colds, no sore throat, no headache but has occasional lightheadedness, no dysuria, no hematuria, no dysphagia. He was recently in [facility] for similar symptoms. His last EGD which was done recently showed gastritis and probable gastroparesis. In the ED, he was noted to have leukocytosis and Infectious Diseases consult is requested to further evaluate and manage. Review of Systems - Review of Systems All systems: reviewed and no additional remarkable complaints except (as per HPI ) Past Patient History - Infectious Disease Hx of Infectious Diseases: None - Past Social History Smoking Status: Never Smoked - CARDIAC Hx Cardiac Disorders: Yes Hx Hypertension: Yes - PULMONARY Hx Respiratory Disorders: Yes Hx Asthma: No Hx Bronchitis: No Hx Chronic Obstructive Pulmonary Disease (COPD): No Hx Emphysema: No Hx Pneumonia: Yes Hx Respiratory Aspiration: No Hx Respiratory Tract Infection: No Hx Sleep Apnea: No Hx Tuberculosis: No - NEUROLOGICAL Hx Neurological Disorder: No Hx Alzheimer's Disease: No HX Cerebrovascular Accident: No Hx Dementia: No Hx Dizziness: No Hx Meningitis: No Hx Migraine: No Hx Parkinson's Disease: No Hx Seizures: No Hx Transient Ischemic Attacks (TIA): No - HEENT Hx HEENT Problems: Yes Hx Cataracts: Yes Other/Comment: poor vision - RENAL Hx Chronic Kidney Disease: Yes Hx Dialysis: No Hx Neurogenic Bladder: No Hx Pyelonephritis: No Hx Renal (Kidney) Cancer: No Hx Renal Failure: No - ENDOCRINE/METABOLIC Hx Diabetes Mellitus Type 2: Yes - HEMATOLOGICAL/ONCOLOGICAL Hx Blood Disorders: Yes Hx AIDS: No Hx Anemia: Yes Hx Cancer: No Hx Chemotherapy: No Hx Cirrhosis: No Hx Hepatitis A: No Hx Hepatitis B: No Hx Hepatitis C: No Hx Human Immunodeficiency Virus (HIV): No Hx Metastesis: No Hx Shingles: No Hx Unexplained Bleeding: No - INTEGUMENTARY Hx Dermatological Problems: No Hx Basil Cell: No Hx Eczema: No Hx Melanoma: No Hx Psoriasis: No Hx Squamous Cell: No - MUSCULOSKELETAL/RHEUMATOLOGICAL Hx Musculoskeletal Disorders: No Hx Falls: No - GASTROINTESTINAL Hx Gastrointestinal Disorders: Yes Hx Colostomy: No Hx Crohn's Disease: No Hx Diverticulitis: No Hx Gall Bladder Disease: No Hx Gastroesophageal Reflux: Yes Hx Ileostomy: No Hx Liver Failure: No Hx Pancreatitis: No HX Swallowing Problems: No - GENITOURINARY/GYNECOLOGICAL Hx Genitourinary Disorders: No Hx Hematuria: No Hx Incontinence: No Hx Prostate Problems: No Hx Sexually Transmitted Disorders: No Hx Urinary Tract Infection: No - PSYCHIATRIC Hx Emotional Abuse: No Hx Physical Abuse: No - SURGICAL HISTORY Hx Surgeries: Yes Hx Amputation: No Hx Appendectomy: No Hx Cholecystectomy: No Hx Coronary Stent: Yes (8) Hx Gastric Bypass Surgery: No Hx Hysterectomy: No Hx Joint Replacement: No Hx Kidney Transplant: No Hx Liver Transplant: No Hx Mastectomy: No Hx Musculoskeletal Surgery: Yes (right femur pinning and plate insertion) Hx Open Heart Surgery: No Hx Orthopedic Surgery: No Hx Splenectomy: No Hx Valve Replacement: No - ANESTHESIA Hx Anesthesia Reactions: No Hx Malignant Hyperthermia: No Meds Allergies/Adverse Reactions: Allergies Allergy/AdvReac Type Severity Reaction Status Date / Time No Known Allergies Allergy Verified 05/05/17 08:37 - Medications Medications: Current Medications Amlodipine Besylate (Norvasc) 10 mg PO DAILY [facility] Aspirin (Ecotrin) 81 mg PO DAILY [facility] Atorvastatin Calcium (Lipitor) 40 mg PO DAILY [facility] Chlorthalidone (Hygroton) 25 mg PO DAILY [facility] Clopidogrel Bisulfate (Plavix) 75 mg PO DAILY [facility] Donepezil HCl (Aricept) 10 mg PO [facility] Last Admin: 05/17/17 23:43 Dose: 10 mg Ezetimibe (Zetia) 10 mg PO DAILY [facility] Ferrous Sulfate (Feosol) 324 mg PO BID [facility] Gabapentin (Neurontin) 300 mg PO DAILY [facility] PRN Reason: Protocol Glipizide (Glucotrol Xl) 10 mg PO DAILY [facility] Sodium Chloride (Sodium Chloride 0.9%) 1,000 mls @ 50 mls/hr IV .Q20H [facility] Stop: 05/18/17 23:59 Last Admin: 05/17/17 20:18 Dose: 50 mls/hr Insulin Human Regular (Humulin R Low) 0 units SC ACHS [facility] PRN Reason: Protocol Last Admin: 05/18/17 00:23 Dose: Not Given Insulin Human Regular (Humulin R Low) 0 units SC ACHS [facility] PRN Reason: Protocol Last Admin: 05/18/17 03:24 Dose: Not Given Memantine (Namenda) 10 mg PO DAILY [facility] Metoprolol Tartrate (Lopressor) 25 mg PO BID [facility] Non-Formulary Medication (Nebivolol [Bystolic]) 5 mg PO DAILY [facility] Ondansetron HCl (Zofran Inj) 4 mg IVP Q6 PRN PRN Reason: Nausea/Vomiting Pantoprazole Sodium (Protonix Ec Tab) 40 mg PO DAILY [facility] Pantoprazole Sodium (Protonix Inj) 40 mg IVP DAILY [facility] Ropinirole HCl (Requip) 0.25 mg PO DAILY [facility] Sodium Bicarbonate (Sodium Bicarbonate Tab) 650 mg PO BID [facility] Physical Exam - Constitutional Appears: Non-toxic, Chronically Ill - Head Exam Head Exam: NORMAL INSPECTION - ENT Exam ENT Exam: Mucous Membranes Moist - Neck Exam Neck exam: Negative for: Meningismus - Respiratory Exam Respiratory Exam: Decreased Breath Sounds - Cardiovascular Exam Cardiovascular Exam: +S1, +S2 - GI/Abdominal Exam GI & Abdominal Exam: Soft. absent: Tenderness Results - Vital Signs Recent Vital Signs: Last Vital Signs Temp 98.4 F 05/17/17 13:03 Pulse 68 05/17/17 23:09 Resp 20 05/17/17 23:09 BP 137/92 H 05/17/17 23:09 Pulse Ox 99 05/17/17 23:00 - Labs Result Diagrams: 05/18/17 06:15 05/18/17 06:15 Labs: Laboratory Results - last 24 hr 05/17/17 05/18/17 20:15 00:37 POC Glucose (mg/dL) 101 Influenza Typ A,B (EIA) Negative for flu a/b Assessment & Plan - Assessment and Plan (Free Text) Plan: Assessment S/P leukocytosis probable acute stress reaction in this patient with gastroparesis diarrhea R/O C. diff. DM HTN chronic anemia CKD CAD S/P PCI Plan WBC count has normalized in less than 24 hours - will monitor the patient off antibiotics; follow up stool for C. diff, follow up blood cx will monitor clinically
--- NOTE | 2017-05-18 21:01 | CON ---
DATE: NEPHROLOGY CONSULTATION HISTORY OF PRESENT ILLNESS: The patient is a 62-year-old male with past medical history of hypertension, diabetes, CAD, status post 8 stents, CKD stage IV, presented to ED yesterday with vomiting and diarrhea found to have worsening of renal insufficiency for which nephrology is being consulted. The patient was just discharged approximately 1 week ago after presenting with right-sided neck and arm pain as well as acute bronchitis. The patient at that time was discharged on azithromycin 5-day course, which he completed approximately 5 days ago. The patient reports that since his discharge, he has been having diarrhea 2 to 3 times a day, watery bowel movement of moderate quantity. The patient has overall been eating less lately and acknowledges weight loss. For the last 2 nights, patient also reports intense night sweats. Yesterday the patient was also having new-onset vomiting yesterday along with diffuse body aches, which prompted him to come to the ED. In ED, the patient was given IV fluid 1 liter bolus as well as undergoing CAT scan with p.o. contrast, which showed no significant acute intra-abdominal abnormality; mention of bilateral streaky perinephric changes. PAST MEDICAL HISTORY: As above, also has restless leg syndrome, on gabapentin, ropinirole, also with reported short-term memory impairment, also with history of esophageal ulcers. 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 REVIEW OF SYSTEMS: CONSTITUTIONAL: As above. HEENT: Denies any sore throat or increased sputum production. RESPIRATORY: Denies any shortness of breath. CARDIOVASCULAR: No chest pain, no increased swelling in legs. GASTROINTESTINAL: As per HPI. GENITOURINARY: No difficulty urinating. No burning with urination or foul-smelling urine. MUSCULOSKELETAL: Diffuse body aches. NEURO: Reporting new onset of "vertigo" that started this morning and causing significant gait imbalance. SKIN: Denies any itching or rashes. PHYSICAL EXAMINATION: VITAL SIGNS: This morning, blood pressure 117/73, heart rate 67, respirations 20, temperature 98.4, O2 sat 98% on room air. GENERAL: No distress. Lying comfortably in bed, conversing coherently in full sentences. HEENT: Moist mucous membranes. Nonicteric. No cervical lymphadenopathy. RESPIRATORY: Lungs clear to auscultation bilaterally. No rales, no rhonchi, no wheezes. CARDIOVASCULAR: Heart sounds S1, S2 normal. No murmurs, no gallops, no rubs. GI: Abdomen soft, nontender, nondistended. : No bladder distention. EXTREMITIES: No lower leg edema. SKIN: Warm. No cyanosis. NEURO: No obvious resting tremor. PSYCHIATRIC: Normal mood, normal affect. LABORATORY DATA: This morning, CBC: WBC 7.7, hemoglobin 9.6, hematocrit 28.8, platelets 330. Chemistry panel: Sodium 139, potassium 4.5, chloride 106, bicarb 24, BUN 44, creatinine 2.9, glucose 96, calcium 9.4, phosphorus 4.3, magnesium 1.8, albumin 3.4. TSH 4.77. Iron studies, iron 38, TIBC 292, saturation 13%. Urine studies, UA showing 100 mg/dL protein, trace blood, leukocyte esterase negative, bacteria trace. CHEST X-RAY: Lungs clear, directly observed. ASSESSMENT AND PLAN: 1. Acute kidney injury on chronic kidney disease stage IV, prerenal etiology in the setting of gastrointestinal losses. Baseline serum creatinine 2.5, increasing to 3.0 on presentation. Holding diuretic. Increasing IV fluids to NS at 80 mL/hour. Avoid nephrotoxic agents (such as Fleet Enema or nonsteroidal antiinflammatory drugs). 2. Anemia, iron-deficiency superimposed on anemia of renal disease. Repeat iron sat also indicative of iron deficiency, only received 3 doses of IV iron on previous admission. If procalcitonin is low and patient with negative blood cultures, should restart IV iron loading to complete 10 doses. 3. Chronic kidney disease, mineral bone disorder. The patient with secondary hyperparathyroidism of renal origin with PTH 119 last month, 25-hydroxy vitamin D level was replete; will benefit from small dose of calcitriol 0.25 mcg once a week. 4. Hypertensive chronic kidney disease. The patient currently on metoprolol 25 mg b.i.d., chlorthalidone 25 mg daily, and amlodipine 10 mg daily. Holding chlorthalidone as above, can continue with metoprolol and amlodipine. 5. Vomiting. The patient with reported history of diabetic gastroparesis. No vomiting this morning. Considering IV fluids as above. Thank you for this referral. We will be following up closely. Vasquez Rosales MD [facility] # [id number]
[2017-05-19] MEDS ORDERED: Lidocaine 5% Patch TD ONE (02:06)
--- NOTE | 2017-05-19 02:15 | CARD ---
APPROVED REPORT EKG Measurement Heart [id number] <Conclusion> Normal sinus rhythm Left axis deviation Moderate voltage criteria for LVH, may be normal variant Cannot rule out Septal infarct, age undetermined Abnormal ECG
--- NOTE | 2017-05-19 02:34 | CARD ---
APPROVED REPORT EKG Measurement Heart [id number] <Conclusion> Sinus bradycardia Minimal voltage criteria for LVH, may be normal variant Septal infarct, age undetermined Abnormal ECG
--- NOTE | 2017-05-19 02:42 | CARD ---
APPROVED REPORT EKG Measurement Heart [id number] <Conclusion> Normal sinus rhythm Minimal voltage criteria for LVH, may be normal variant Septal infarct, age undetermined Abnormal ECG
--- NOTE | 2017-05-19 04:06 | PN ---
DATE: SUBJECTIVE: Patient is seen and examined at the bedside, complaining of about body aches, nauseousness, especially back pain. No fever, no chills. No headache, no dizziness. No swelling of the legs. PHYSICAL EXAMINATION: VITAL SIGNS: Temperature 97.9, pulse 61, blood pressure 120/80 , respiratory rate 16. HEENT: Head: Normocephalic, atraumatic. Eyes: PERRLA. Extraocular muscles intact. Conjunctivae are clear. Nose: Patent. NECK: Supple. No carotid bruit. No JVD or thyromegaly. CHEST: Bilaterally symmetrical. HEART: S1 and S2 positive. LUNGS: Clear to auscultation. ABDOMEN: Soft. Bowel sounds positive. No organomegaly. EXTREMITIES: No edema. No cyanosis. NEUROLOGICAL: Patient is awake and alert. Moving all four extremities. No focal deficits. MEDICATIONS: Aricept, Ecotrin, Glucotrol, insulin, Lidoderm, Lipitor, Lopressor, Namenda, Neurontin, Norvasc, Plavix, Protonix, Zetia, Zofran. LABORATORY DATA: White blood cells 7.7, hemoglobin 9.6, hematocrit 28.8, platelets 330. Glucose 183, 149, 227. ASSESSMENT AND PLAN: Mr. Anyi Herrera is a 62-year-old male with leukocytosis, anemia, hyperglycemia, iron deficiency, proteinuria, hematuria, seen by [facility] , history of hypertension, chronic kidney disease, coronary artery disease, status post percutaneous coronary intervention; in the patient with gastroparesis and that is why he has leukocytosis; diarrhea, rule out clostridium difficile toxic colitis. White blood cell is normalized, less than 24 hours. ID is monitoring off the antibiotics. Follow up clostridium difficile toxic colitis and blood cultures. Appreciated GI consult also. Patient has history of retinitis pigmentosa; esophageal ulcers, healing; recent memory disturbance; history of pneumonia, recently. Diet as tolerated on solid. Patient is aware of to eat small meals and chew food well. On Protonix. Monitoring hemoglobin and hematocrit for overt gastrointestinal bleeding. Patient is on Plavix and Zofran as necessary. Seen by television camera operator, Dr. Rosales. Acute kidney injury on chronic kidney disease, stage IV. Prerenal etiology in the setting of gastrointestinal losses. Holding diuretics, increasing IV fluid. The patient has certainly hypothyroidism with recent PTH 119; 25-hydroxy vitamin D deficiency. Gastrointestinal and deep venous thrombosis prophylaxis. Repeat labs. We will follow up. Gill Hoffman MD [facility]
[2017-05-19 06:57] LABS: BASO # 0.01 K/mm3 (0.0-2.0); BASO % 0.1 % (0.0-3.0); EOS # 0.6 (0.0-0.7); EOS % 7.1 % (1.5-5.0); GRAN # 5.01 (1.4-6.5); GRAN % 61.7 % (50.0-68.0); HEMOGLOBIN 9.6 g/dL (14.0-18.0); LYMPH % 25.1 % (22.0-35.0); MEAN CELL VOLUME 84.5 fl (80.0-105.0); MEAN CORPUSCULAR HEMOGLOBIN 27.5 pg (25.0-35.0); MEAN CORPUSCULAR HGB CONC 32.5 g/dl (31.0-37.0); MEAN PLATELET VOLUME 9.8 fl (7.0-11.0); MONO # 0.5 (0.1-0.6); RBC 3.49 10^6/uL (3.5-6.1); RED CELL DISTRIBUTION WIDTH 16.9 % (11.5-14.5); WHITE BLOOD COUNT 8.1 10^3/ul (4.5-11.0)
[2017-05-19 07:13] LABS: CALCIUM 9.1 mg/dL (8.4-10.5)
[2017-05-19] MEDS: Pantoprazole 40 mg EC Tab PO SCH (09:39)
[2017-05-19] MEDS: GlipiZIDE 10 mg SR Tab PO SCH (09:39)
[2017-05-19] MEDS: Sodium Chloride 0.9% 1,000 ML IV SCH (09:40)
[2017-05-19] MEDS: Insulin Reg-LOW-Coverage SC SCH ×6 (12:30→17:04)
--- NOTE | 2017-05-19 13:26 | PN ---
DATE: 05/19/2017 LOCATION: Patient is in room 561, bed 1. REASON FOR CONSULTATION AND FOLLOWUP: Coronary artery disease, hypertension, hyperlipidemia, history of WA, history of stent insertion, admitted with vomiting, diarrhea, abdominal pain, and generalized weakness. SUBJECTIVE: The patient is lying flat in bed without chest pain, shortness of breath, or palpitation; still feels at times nausea and abdominal discomfort. PHYSICAL EXAMINATION: VITAL SIGNS: Blood pressure 130/71, respirations 18, pulse 68, and temperature 98. HEENT: Head is normocephalic. Eyes: Pupils normal. Conjunctivae slightly pale. NECK: JVP low. Carotids equal. THORAX: AP diameter normal. LUNGS: Clear. CARDIOVASCULAR: S1 and S2. ABDOMEN: Soft. No tenderness. No organomegaly. Bowel sounds normal. EXTREMITIES: No clubbing. No cyanosis. LABORATORY DATA: WBC 8.1, hemoglobin 9.6, hematocrit 29.5, and platelets 310. Sodium 142, potassium 4.1. BUN 34, creatinine 2.6. Random glucose 120. Calcium 9.1. DIAGNOSES: Abdominal pain, nausea, diarrhea, acute on chronic renal dysfunction, coronary artery disease, history of myocardial infarction, history of angioplasty and stent insertion, recent stress test on 06/15/2016, was normal with ejection fraction of 48%. Echo on 05/06/2017, showed ejection fraction of 50%, trace aortic regurgitation, mild aortic stenosis, [id number] mitral regurgitation, mild tricuspid regurgitation, right ventricular systolic pressure 55 mmHg. Diabetes, hypertension, hyperlipidemia, anemia, and leukocytosis. PLAN: Clinically, patient's cardiac status is stable. Continued to have GI symptoms. Patient on aspirin 81 mg daily, ferrous sulfate 324 mg p.o. b.i.d., Glucotrol XL 10 mg daily, Hygroton 25 mg daily that is on hold, Venofer 100 mg IV daily, Lipitor 40 daily, metoprolol 25 b.i.d., Namenda 10 mg daily, Bystolic 5 mg daily, gabapentin 300 mg p.o. daily, amlodipine 10 daily, Plavix 75 daily, Protonix 40 daily, sodium bicarbonate 650 b.i.d., IV fluid normal saline 50 mL an hour, Zetia 10 mg daily. We will follow. Anyi Herrera MD [facility] # [id number]
--- NOTE | 2017-05-19 14:41 | MRI ---
PROCEDURE: MRI BRAIN WITHOUT CONTRAST HISTORY: Dizziness COMPARISON: 10/21/2016 MRI TECHNIQUE: Multiplanar, multisequence MR images of the brain were obtained without intravenous contrast enhancement. FINDINGS: HEMORRHAGE: None DWI: No evidence of an acute or early subacute infarction. BRAIN PARENCHYMA: No mass effect or edema. Chronic microvascular changes are seen in the jc. The finding is unchanged. VENTRICLES: There is persistent asymmetric ventriculomegaly left greater than right. This finding is unchanged. CRANIUM: Unremarkable. ORBITS: Grossly unremarkable. PARANASAL SINUSES/MASTOIDS: Clear VASCULAR SYSTEM: Skull base flow voids intact. OTHER FINDINGS: None. IMPRESSION: No acute intracranial findings
--- NOTE | 2017-05-19 15:36 | CP.PCM.PN ---
<Olivia Arana - Last Filed: 05/19/17 15:34> Subjective - Date & Time of Evaluation Date of Evaluation: 05/19/17 Time of Evaluation: 10:50 - Subjective Subjective: Seen and examined at the bedside earlier this morning, chart review. Patient reports no further bowel movement since Wednesday. He still gets nausea but improved. Tolerating oral diet. Patient still complaines of dizziness. No acute overnight events reported. Objective - Vital Signs/Intake and Output Vital Signs (last 24 hours): Temp Pulse Resp BP Pulse Ox 98 F 68 18 135/91 H 97 05/19/17 07:47 05/19/17 07:47 05/19/17 07:47 05/19/17 09:38 05/19/17 07:47 Intake and Output: 05/19/17 05/19/17 06:59 18:59 Intake Total 180 600 Output Total 550 Balance -370 600 - Medications Medications: Current Medications Amlodipine Besylate (Norvasc) 10 mg PO DAILY [facility] Last Admin: 05/19/17 09:38 Dose: 10 mg Aspirin (Ecotrin) 81 mg PO DAILY [facility] Last Admin: 05/19/17 09:39 Dose: 81 mg Atorvastatin Calcium (Lipitor) 40 mg PO DAILY [facility] Last Admin: 05/18/17 09:35 Dose: 40 mg Chlorthalidone (Hygroton) 25 mg PO DAILY [facility] Last Admin: 05/18/17 09:35 Dose: 25 mg Clopidogrel Bisulfate (Plavix) 75 mg PO DAILY [facility] Last Admin: 05/19/17 09:38 Dose: 75 mg Donepezil HCl (Aricept) 10 mg PO HS [facility] Last Admin: 05/18/17 21:08 Dose: 10 mg Ezetimibe (Zetia) 10 mg PO DAILY [facility] Last Admin: 05/19/17 09:39 Dose: 10 mg Ferrous Sulfate (Feosol) 324 mg PO BID [facility] Last Admin: 05/19/17 09:40 Dose: 324 mg Gabapentin (Neurontin) 300 mg PO DAILY [facility] PRN Reason: Protocol Last Admin: 05/19/17 09:39 Dose: 300 mg Glipizide (Glucotrol Xl) 10 mg PO DAILY [facility] Last Admin: 05/19/17 09:39 Dose: 10 mg Iron Sucrose 100 mg/ Sodium (Chloride) 105 mls @ 210 mls/hr IVPB DAILY [facility] Stop: 05/25/17 10:29 Last Admin: 05/19/17 14:33 Dose: 210 mls/hr Sodium Chloride (Sodium Chloride 0.9%) 1,000 mls @ 50 mls/hr IV .Q20H [facility] Last Admin: 05/19/17 09:40 Dose: 50 mls/hr Insulin Human Regular (Humulin R Low) 0 units SC ACHS [facility] PRN Reason: Protocol Last Admin: 05/19/17 12:30 Dose: 1 units Insulin Human Regular (Humulin R Low) 0 units SC ACHS [facility] PRN Reason: Protocol Last Admin: 05/18/17 21:13 Dose: Not Given Lidocaine (Lidoderm) 1 ea TD DAILY [facility] Meclizine HCl (Antivert) 25 mg PO Q8 [facility] Last Admin: 05/19/17 14:32 Dose: 25 mg Memantine (Namenda) 10 mg PO DAILY [facility] Last Admin: 05/19/17 09:39 Dose: 10 mg Metoprolol Tartrate (Lopressor) 25 mg PO BID [facility] Last Admin: 05/19/17 09:39 Dose: 25 mg Non-Formulary Medication (Nebivolol [Bystolic]) 5 mg PO DAILY [facility] Ondansetron HCl (Zofran Inj) 4 mg IVP Q6 PRN PRN Reason: Nausea/Vomiting Last Admin: 05/18/17 14:07 Dose: 4 mg Pantoprazole Sodium (Protonix Ec Tab) 40 mg PO DAILY [facility] Last Admin: 05/19/17 09:39 Dose: 40 mg Ropinirole HCl (Requip) 0.25 mg PO DAILY [facility] Last Admin: 05/19/17 09:38 Dose: 0.25 mg Sodium Bicarbonate (Sodium Bicarbonate Tab) 650 mg PO BID [facility] Last Admin: 05/19/17 09:38 Dose: 650 mg - Labs Labs: 05/19/17 06:20 05/19/17 06:20 PT 11.2 SECONDS (9.4-12.5) 05/17/17 12:50 INR 0.98 (0.93-1.08) 05/17/17 12:50 APTT 29.3 Seconds (25.1-36.5) 05/17/17 12:50 - Constitutional Appears: No Acute Distress - Head Exam Head Exam: NORMOCEPHALIC - Eye Exam Eye Exam: Normal appearance. absent: Scleral icterus - ENT Exam ENT Exam: Mucous Membranes Moist - Neck Exam Neck Exam: Normal Inspection - Cardiovascular Exam Cardiovascular Exam: +S1, +S2 - GI/Abdominal Exam GI & Abdominal Exam: Soft, Normal Bowel Sounds. absent: Guarding, Tenderness, Rebound - Extremities Exam Extremities Exam: absent: Calf Tenderness, Pedal Edema - Neurological Exam Neurological Exam: Alert, Awake, Oriented x3 - Skin Skin Exam: Dry, Warm Assessment and Plan - Assessment and Plan (Free Text) Assessment: Assessment: Dizziness Leukocytosis Nausea/vomiting/diarrhea, rule out C. difficile recent pneumonia with antibiotic use, consider nausea may be secondary to dizziness History of gastroparesis History of diabetes mellitus Coronary artery disease status post stent on Plavix Chronic anemia Chronic kidney disease Plan: Diet as tolerated, on solids, patient aware to eat small meals and chew food well on Protonix Monitor H&H and for overt GI bleed On iron supplements On Plavix Zofran when necessary discussed with Dr. Hoffman at bedside, nausea may be secondary to complaints of dizziness, recommend neuro evaluation, Dr. Hoffman request for MRI of the brain. Seen and discussed with Dr. Bloom. <Jefferson Bloom V - Last Filed: 05/20/17 00:26> Objective - Vital Signs/Intake and Output Vital Signs (last 24 hours): Temp Pulse Resp BP Pulse Ox 98.7 F 60 16 140/91 H 100 05/19/17 16:00 05/19/17 16:00 05/19/17 16:00 05/19/17 16:00 05/19/17 16:00 Intake and Output: 05/19/17 05/20/17 18:59 06:59 Intake Total 600 520 Balance 600 520 - Medications Medications: Current Medications Amlodipine Besylate (Norvasc) 10 mg PO DAILY [facility] Last Admin: 05/19/17 09:38 Dose: 10 mg Aspirin (Ecotrin) 81 mg PO DAILY [facility] Last Admin: 05/19/17 09:39 Dose: 81 mg Atorvastatin Calcium (Lipitor) 40 mg PO DAILY [facility] Last Admin: 05/18/17 09:35 Dose: 40 mg Chlorthalidone (Hygroton) 25 mg PO DAILY [facility] Last Admin: 05/18/17 09:35 Dose: 25 mg Clopidogrel Bisulfate (Plavix) 75 mg PO DAILY [facility] Last Admin: 05/19/17 09:38 Dose: 75 mg Donepezil HCl (Aricept) 10 mg PO HS [facility] Last Admin: 05/18/17 21:08 Dose: 10 mg Ezetimibe (Zetia) 10 mg PO DAILY [facility] Last Admin: 05/19/17 09:39 Dose: 10 mg Ferrous Sulfate (Feosol) 324 mg PO BID [facility] Last Admin: 05/19/17 18:27 Dose: 324 mg Gabapentin (Neurontin) 300 mg PO DAILY [facility] PRN Reason: Protocol Last Admin: 05/19/17 09:39 Dose: 300 mg Glipizide (Glucotrol Xl) 10 mg PO DAILY [facility] Last Admin: 05/19/17 09:39 Dose: 10 mg Iron Sucrose 100 mg/ Sodium (Chloride) 105 mls @ 210 mls/hr IVPB DAILY [facility] Stop: 05/25/17 10:29 Last Admin: 05/19/17 14:33 Dose: 210 mls/hr Sodium Chloride (Sodium Chloride 0.9%) 1,000 mls @ 50 mls/hr IV .Q20H [facility] Last Admin: 05/19/17 09:40 Dose: 50 mls/hr Insulin Human Regular (Humulin R Low) 0 units SC ACHS [facility] PRN Reason: Protocol Last Admin: 05/19/17 17:01 Dose: Not Given Insulin Human Regular (Humulin R Low) 0 units SC ACHS [facility] PRN Reason: Protocol Last Admin: 05/19/17 17:04 Dose: Not Given Lidocaine (Lidoderm) 1 ea TD DAILY [facility] Last Admin: 05/19/17 18:32 Dose: 1 ea Meclizine HCl (Antivert) 25 mg PO Q8 [facility] Last Admin: 05/19/17 21:19 Dose: 25 mg Memantine (Namenda) 10 mg PO DAILY [facility] Last Admin: 05/19/17 09:39 Dose: 10 mg Metoprolol Tartrate (Lopressor) 25 mg PO BID [facility] Last Admin: 05/19/17 18:27 Dose: 25 mg Non-Formulary Medication (Nebivolol [Bystolic]) 5 mg PO DAILY [facility] Ondansetron HCl (Zofran Inj) 4 mg IVP Q6 PRN PRN Reason: Nausea/Vomiting Last Admin: 05/18/17 14:07 Dose: 4 mg Pantoprazole Sodium (Protonix Ec Tab) 40 mg PO DAILY [facility] Last Admin: 05/19/17 09:39 Dose: 40 mg Ropinirole HCl (Requip) 0.25 mg PO DAILY [facility] Last Admin: 05/19/17 09:38 Dose: 0.25 mg Sodium Bicarbonate (Sodium Bicarbonate Tab) 650 mg PO BID [facility] Last Admin: 05/19/17 18:26 Dose: 650 mg - Labs Labs: 05/19/17 06:20 05/19/17 06:20 PT 11.2 SECONDS (9.4-12.5) 05/17/17 12:50 INR 0.98 (0.93-1.08) 05/17/17 12:50 APTT 29.3 Seconds (25.1-36.5) 05/17/17 12:50 Attending/Attestation - Attestation I have personally seen and examined this patient.: Yes I have fully participated in the care of the patient.: Yes I have reviewed all pertinent clinical information, including history, physical exam and plan: Yes Notes (Text): This is an addendum to GI progress report dictated by Olivia Arana APN.The patient was seen and examined earlier. Medical records, lab studies, imagings were reviewed. Last 24 hours events reviewed. Agreed with the above treatment plan as outlined in Olivia Arana APN's notes the with the addition of the following Patient continued complaints of constant dizziness Also finding peak and there difficulty and was ambulating in view of this dizziness. MRIs of the brain reported as negative Less likely the dizziness is related to GI etiology Patient would benefit from neurologically evaluation asked line continue soft diet she will R. Diet for gastroparesis Elective colonoscopy 05/20/17 00:24
--- NOTE | 2017-05-19 17:31 | CP.PCM.PN ---
Subjective - Date & Time of Evaluation Date of Evaluation: 05/19/17 Time of Evaluation: 11:10 - Subjective Subjective: No fevers, no diarrhea currently. Objective - Vital Signs/Intake and Output Vital Signs (last 24 hours): Temp Pulse Resp BP Pulse Ox 98 F 68 18 130/71 97 05/19/17 07:47 05/19/17 07:47 05/19/17 07:47 05/19/17 07:47 05/19/17 07:47 Intake and Output: 05/19/17 05/19/17 06:59 18:59 Intake Total 180 Output Total 550 Balance -370 - Medications Medications: Current Medications Amlodipine Besylate (Norvasc) 10 mg PO DAILY [facility] Last Admin: 05/18/17 09:36 Dose: 10 mg Aspirin (Ecotrin) 81 mg PO DAILY [facility] Last Admin: 05/18/17 09:36 Dose: 81 mg Atorvastatin Calcium (Lipitor) 40 mg PO DAILY [facility] Last Admin: 05/18/17 09:35 Dose: 40 mg Chlorthalidone (Hygroton) 25 mg PO DAILY [facility] Last Admin: 05/18/17 09:35 Dose: 25 mg Clopidogrel Bisulfate (Plavix) 75 mg PO DAILY [facility] Last Admin: 05/18/17 09:35 Dose: 75 mg Donepezil HCl (Aricept) 10 mg PO HS [facility] Last Admin: 05/18/17 21:08 Dose: 10 mg Ezetimibe (Zetia) 10 mg PO DAILY [facility] Last Admin: 05/18/17 09:34 Dose: 10 mg Ferrous Sulfate (Feosol) 324 mg PO BID [facility] Last Admin: 05/18/17 18:07 Dose: 324 mg Gabapentin (Neurontin) 300 mg PO DAILY [facility] PRN Reason: Protocol Last Admin: 05/18/17 09:35 Dose: 300 mg Glipizide (Glucotrol Xl) 10 mg PO DAILY [facility] Last Admin: 05/18/17 09:34 Dose: 10 mg Insulin Human Regular (Humulin R Low) 0 units SC [facility] PRN Reason: Protocol Last Admin: 05/18/17 21:12 Dose: Not Given Insulin Human Regular (Humulin R Low) 0 units SC ACHS [facility] PRN Reason: Protocol Last Admin: 05/18/17 21:13 Dose: Not Given Lidocaine (Lidoderm) 1 ea TD DAILY [facility] Memantine (Namenda) 10 mg PO DAILY [facility] Last Admin: 05/18/17 09:35 Dose: 10 mg Metoprolol Tartrate (Lopressor) 25 mg PO BID [facility] Last Admin: 05/18/17 17:52 Dose: 25 mg Non-Formulary Medication (Nebivolol [Bystolic]) 5 mg PO DAILY [facility] Ondansetron HCl (Zofran Inj) 4 mg IVP Q6 PRN PRN Reason: Nausea/Vomiting Last Admin: 05/18/17 14:07 Dose: 4 mg Pantoprazole Sodium (Protonix Ec Tab) 40 mg PO DAILY [facility] Last Admin: 05/18/17 09:35 Dose: 40 mg Ropinirole HCl (Requip) 0.25 mg PO DAILY [facility] Last Admin: 05/18/17 09:35 Dose: 0.25 mg Sodium Bicarbonate (Sodium Bicarbonate Tab) 650 mg PO BID [facility] Last Admin: 05/18/17 17:52 Dose: 650 mg - Labs Labs: 05/19/17 06:20 05/19/17 06:20 PT 11.2 SECONDS (9.4-12.5) 05/17/17 12:50 INR 0.98 (0.93-1.08) 05/17/17 12:50 APTT 29.3 Seconds (25.1-36.5) 05/17/17 12:50 - Constitutional Appears: Chronically Ill - Head Exam Head Exam: NORMAL INSPECTION - ENT Exam ENT Exam: Mucous Membranes Moist - Neck Exam Neck Exam: absent: Meningismus - Respiratory Exam Respiratory Exam: Decreased Breath Sounds - Cardiovascular Exam Cardiovascular Exam: +S1, +S2 - GI/Abdominal Exam GI & Abdominal Exam: Soft. absent: Tenderness Assessment and Plan - Assessment and Plan (Free Text) Plan: Assessment S/P leukocytosis probable acute stress reaction in this patient with gastroparesis diarrhea R/O C. diff. DM HTN chronic anemia CKD CAD S/P PCI Plan WBC count has normalized in less than 24 hours - will continue to monitor the patient off antibiotics; follow up stool for C. diff, blood cx are negative so far will monitor clinically
[2017-05-19] MEDS: Lidocaine 5% Patch TD SCH (18:32)
--- NOTE | 2017-05-19 21:50 | CP.PCM.PN ---
Subjective - Date & Time of Evaluation Date of Evaluation: 05/19/17 Time of Evaluation: 11:00 - Subjective Subjective: Main complaint is generalized weakness; feeling unsteady on ambulation; tolerating diet well, no nausea/vomiting or diarrhea; Objective - Vital Signs/Intake and Output Vital Signs (last 24 hours): Temp Pulse Resp BP Pulse Ox 98.7 F 60 16 140/91 H 100 05/19/17 16:00 05/19/17 16:00 05/19/17 16:00 05/19/17 16:00 05/19/17 16:00 Intake and Output: 05/19/17 05/20/17 18:59 06:59 Intake Total 600 520 Balance 600 520 - Medications Medications: Current Medications Amlodipine Besylate (Norvasc) 10 mg PO DAILY [facility] Last Admin: 05/19/17 09:38 Dose: 10 mg Aspirin (Ecotrin) 81 mg PO DAILY [facility] Last Admin: 05/19/17 09:39 Dose: 81 mg Atorvastatin Calcium (Lipitor) 40 mg PO DAILY [facility] Last Admin: 05/18/17 09:35 Dose: 40 mg Chlorthalidone (Hygroton) 25 mg PO DAILY [facility] Last Admin: 05/18/17 09:35 Dose: 25 mg Clopidogrel Bisulfate (Plavix) 75 mg PO DAILY [facility] Last Admin: 05/19/17 09:38 Dose: 75 mg Donepezil HCl (Aricept) 10 mg PO HS [facility] Last Admin: 05/18/17 21:08 Dose: 10 mg Ezetimibe (Zetia) 10 mg PO DAILY [facility] Last Admin: 05/19/17 09:39 Dose: 10 mg Ferrous Sulfate (Feosol) 324 mg PO BID [facility] Last Admin: 05/19/17 18:27 Dose: 324 mg Gabapentin (Neurontin) 300 mg PO DAILY [facility] PRN Reason: Protocol Last Admin: 05/19/17 09:39 Dose: 300 mg Glipizide (Glucotrol Xl) 10 mg PO DAILY [facility] Last Admin: 05/19/17 09:39 Dose: 10 mg Iron Sucrose 100 mg/ Sodium (Chloride) 105 mls @ 210 mls/hr IVPB DAILY [facility] Stop: 05/25/17 10:29 Last Admin: 05/19/17 14:33 Dose: 210 mls/hr Sodium Chloride (Sodium Chloride 0.9%) 1,000 mls @ 50 mls/hr IV .Q20H [facility] Last Admin: 05/19/17 09:40 Dose: 50 mls/hr Insulin Human Regular (Humulin R Low) 0 units SC ACHS [facility] PRN Reason: Protocol Last Admin: 05/19/17 17:01 Dose: Not Given Insulin Human Regular (Humulin R Low) 0 units SC ACHS [facility] PRN Reason: Protocol Last Admin: 05/19/17 17:04 Dose: Not Given Lidocaine (Lidoderm) 1 ea TD DAILY [facility] Last Admin: 05/19/17 18:32 Dose: 1 ea Meclizine HCl (Antivert) 25 mg PO Q8 [facility] Last Admin: 05/19/17 21:19 Dose: 25 mg Memantine (Namenda) 10 mg PO DAILY [facility] Last Admin: 05/19/17 09:39 Dose: 10 mg Metoprolol Tartrate (Lopressor) 25 mg PO BID [facility] Last Admin: 05/19/17 18:27 Dose: 25 mg Non-Formulary Medication (Nebivolol [Bystolic]) 5 mg PO DAILY [facility] Ondansetron HCl (Zofran Inj) 4 mg IVP Q6 PRN PRN Reason: Nausea/Vomiting Last Admin: 05/18/17 14:07 Dose: 4 mg Pantoprazole Sodium (Protonix Ec Tab) 40 mg PO DAILY [facility] Last Admin: 05/19/17 09:39 Dose: 40 mg Ropinirole HCl (Requip) 0.25 mg PO DAILY [facility] Last Admin: 05/19/17 09:38 Dose: 0.25 mg Sodium Bicarbonate (Sodium Bicarbonate Tab) 650 mg PO BID [facility] Last Admin: 05/19/17 18:26 Dose: 650 mg - Labs Labs: 05/19/17 06:20 05/19/17 06:20 PT 11.2 SECONDS (9.4-12.5) 05/17/17 12:50 INR 0.98 (0.93-1.08) 05/17/17 12:50 APTT 29.3 Seconds (25.1-36.5) 05/17/17 12:50 - Constitutional Appears: Non-toxic, No Acute Distress - Eye Exam Eye Exam: Normal appearance. absent: Scleral icterus - ENT Exam ENT Exam: Mucous Membranes Moist - Respiratory Exam Respiratory Exam: Clear to Ausculation Bilateral. absent: Respiratory Distress - Cardiovascular Exam Cardiovascular Exam: RRR, +S1, +S2 - GI/Abdominal Exam GI & Abdominal Exam: Soft. absent: Distended, Tenderness - Extremities Exam Additional comments: no leg edema; - Neurological Exam Neurological Exam: Alert, Awake - Psychiatric Exam Psychiatric exam: Normal Mood. absent: Agitated - Skin Skin Exam: Warm. absent: Cyanosis Assessment and Plan (1) Acute kidney injury Assessment & Plan: Pre-renal etiology in the setting of diarrhea, resolved with IVF; monitor; continue gentle IVF for now, holding diuretics; Status: Acute (2) Anemia of renal disease Assessment & Plan: Hgb below goal of 10-11g; continuing with IV iron loading; Status: Chronic (3) Chronic kidney disease-mineral and bone disorder Assessment & Plan: With secondary hyperparathyroidism (PTH 119); vitamin D 25-OH level replete; will start calcitriol 0.25 mcg weekly; Status: Chronic (4) Hypertensive chronic kidney disease with stage 1 through stage 4 chronic kidney disease, or unspecified chronic kidney disease Assessment & Plan: BP mildly elevated on IVF with diuretic being held; on B-maryellen and amlodipine , continue same; Status: Acute (5) CKD (chronic kidney disease) stage 4, GFR 15-29 ml/min Assessment & Plan: Likely secondary to DM nephropathy and renovascular disease; relatively stable electrolyte and volume status; will benefit from ARB/SANTINO inhibitor intermediate card tender, will defer to outpatient brick chimney builder; Status: Chronic
--- NOTE | 2017-05-19 22:16 | CP.PCM.PN ---
<Roseann Stewart - Last Filed: 05/19/17 22:12> Subjective - Date & Time of Evaluation Date of Evaluation: 05/19/17 Time of Evaluation: 10:45 - Subjective Subjective: Chief Complaint: Dizziness, weakness 62 yr male w/ history chronic AL with cardiac stents x 7, HTN, Hyperlipidemia, DM II, gastroparesis, anemia, L eye blindness, degenerative stenosis at C5- C6-C7, R kidney complex cysts/mass & Renal insufficiency. Pt was recently discharge [facility] (05/10) and is now readmitted (05/17) for diarrhea. Today, pt is c/o dizziness and weakness. Denies any shortness of breath, chest pain, headache, fever, chills, diarrhea, constipation, paraesthesias, or urinary changes. Objective - Vital Signs/Intake and Output Vital Signs (last 24 hours): Temp Pulse Resp BP Pulse Ox 98.7 F 60 16 140/91 H 100 05/19/17 16:00 05/19/17 16:00 05/19/17 16:00 05/19/17 16:00 05/19/17 16:00 Intake and Output: 05/19/17 05/20/17 18:59 06:59 Intake Total 600 520 Balance 600 520 - Medications Medications: Current Medications Amlodipine Besylate (Norvasc) 10 mg PO DAILY [facility] Last Admin: 05/19/17 09:38 Dose: 10 mg Aspirin (Ecotrin) 81 mg PO DAILY [facility] Last Admin: 05/19/17 09:39 Dose: 81 mg Atorvastatin Calcium (Lipitor) 40 mg PO DAILY [facility] Last Admin: 05/18/17 09:35 Dose: 40 mg Chlorthalidone (Hygroton) 25 mg PO DAILY [facility] Last Admin: 05/18/17 09:35 Dose: 25 mg Clopidogrel Bisulfate (Plavix) 75 mg PO DAILY [facility] Last Admin: 05/19/17 09:38 Dose: 75 mg Donepezil HCl (Aricept) 10 mg PO HS [facility] Last Admin: 05/18/17 21:08 Dose: 10 mg Ezetimibe (Zetia) 10 mg PO DAILY [facility] Last Admin: 05/19/17 09:39 Dose: 10 mg Ferrous Sulfate (Feosol) 324 mg PO BID [facility] Last Admin: 05/19/17 18:27 Dose: 324 mg Gabapentin (Neurontin) 300 mg PO DAILY [facility] PRN Reason: Protocol Last Admin: 05/19/17 09:39 Dose: 300 mg Glipizide (Glucotrol Xl) 10 mg PO DAILY [facility] Last Admin: 05/19/17 09:39 Dose: 10 mg Iron Sucrose 100 mg/ Sodium (Chloride) 105 mls @ 210 mls/hr IVPB DAILY [facility] Stop: 05/25/17 10:29 Last Admin: 05/19/17 14:33 Dose: 210 mls/hr Sodium Chloride (Sodium Chloride 0.9%) 1,000 mls @ 50 mls/hr IV .Q20H [facility] Last Admin: 05/19/17 09:40 Dose: 50 mls/hr Insulin Human Regular (Humulin R Low) 0 units SC ACHS [facility] PRN Reason: Protocol Last Admin: 05/19/17 17:01 Dose: Not Given Insulin Human Regular (Humulin R Low) 0 units SC ACHS [facility] PRN Reason: Protocol Last Admin: 05/19/17 17:04 Dose: Not Given Lidocaine (Lidoderm) 1 ea TD DAILY [facility] Last Admin: 05/19/17 18:32 Dose: 1 ea Meclizine HCl (Antivert) 25 mg PO Q8 [facility] Last Admin: 05/19/17 21:19 Dose: 25 mg Memantine (Namenda) 10 mg PO DAILY [facility] Last Admin: 05/19/17 09:39 Dose: 10 mg Metoprolol Tartrate (Lopressor) 25 mg PO BID [facility] Last Admin: 05/19/17 18:27 Dose: 25 mg Non-Formulary Medication (Nebivolol [Bystolic]) 5 mg PO DAILY [facility] Ondansetron HCl (Zofran Inj) 4 mg IVP Q6 PRN PRN Reason: Nausea/Vomiting Last Admin: 05/18/17 14:07 Dose: 4 mg Pantoprazole Sodium (Protonix Ec Tab) 40 mg PO DAILY [facility] Last Admin: 05/19/17 09:39 Dose: 40 mg Ropinirole HCl (Requip) 0.25 mg PO DAILY [facility] Last Admin: 05/19/17 09:38 Dose: 0.25 mg Sodium Bicarbonate (Sodium Bicarbonate Tab) 650 mg PO BID [facility] Last Admin: 05/19/17 18:26 Dose: 650 mg - Labs Labs: 05/19/17 06:20 02/21/18 06:20 PT 11.2 SECONDS (9.4-12.5) 05/17/17 12:50 INR 0.98 (0.93-1.08) 05/17/17 12:50 APTT 29.3 Seconds (25.1-36.5) 05/17/17 12:50 - Constitutional Appears: Chronically Ill - Head Exam Head Exam: ATRAUMATIC, NORMAL INSPECTION, NORMOCEPHALIC - Eye Exam Eye Exam: Normal appearance - ENT Exam ENT Exam: Mucous Membranes Moist, Normal Exam - Neck Exam Neck Exam: Full ROM, Normal Inspection. absent: Lymphadenopathy - Respiratory Exam Respiratory Exam: Clear to Ausculation Bilateral, NORMAL BREATHING PATTERN - Cardiovascular Exam Cardiovascular Exam: REGULAR RHYTHM, +S1, +S2. absent: Murmur - GI/Abdominal Exam GI & Abdominal Exam: Soft, Normal Bowel Sounds. absent: Tenderness - Extremities Exam Extremities Exam: Full ROM, Normal Capillary Refill, Normal Inspection. absent : Joint Swelling, Pedal Edema - Back Exam Back Exam: NORMAL INSPECTION - Neurological Exam Neurological Exam: Alert, Awake - Psychiatric Exam Psychiatric exam: Flat Affect, Normal Mood - Skin Skin Exam: Dry, Intact, Normal Color, Warm Assessment and Plan (1) Dizziness Status: Acute (2) Weakness Status: Acute (3) UTI (urinary tract infection) Status: Acute (4) Abnormal EKG Status: Acute (5) Anemia of renal disease Status: Acute (6) Chronic kidney disease-mineral and bone disorder Status: Acute - Assessment and Plan (Free Text) Plan: MRI of brain ordered. IVF hydration. IV venofer. VTE/GI prophylaxsis. PT/OT on board. Consults: Cardio - Dr. Jacobo Pulmo - Dr. Viramontes GI - Dr. Bloom Nephro - Dr. Rutherford Neuro - Dr. Jensen Reviewed: MRI brain = CT abd/pelvis = cardiomegaly & trace pericardial effusion noted, resolution of suspected R basilar patchy pneumonia CXR = WNL ECG = ABNORMAL, NSR, L axis deviation, mod voltage criteria for LVH, cannot rule out septal infarct <Gill Hoffman - Last Filed: 05/20/17 09:50> Objective - Vital Signs/Intake and Output Vital Signs (last 24 hours): Temp Pulse Resp BP Pulse Ox 98.6 F 79 20 147/89 99 05/20/17 07:30 05/20/17 07:30 05/20/17 07:30 05/20/17 07:30 05/20/17 07:30 Intake and Output: 05/20/17 05/20/17 06:59 18:59 Intake Total 760 Balance 760 - Medications Medications: Current Medications Amlodipine Besylate (Norvasc) 10 mg PO DAILY [facility] Last Admin: 05/19/17 09:38 Dose: 10 mg Aspirin (Ecotrin) 81 mg PO DAILY [facility] Last Admin: 05/19/17 09:39 Dose: 81 mg Atorvastatin Calcium (Lipitor) 40 mg PO DAILY [facility] Last Admin: 05/18/17 09:35 Dose: 40 mg Calcitriol (Rocaltrol) 0.25 mcg PO [facility] Chlorthalidone (Hygroton) 25 mg PO DAILY [facility] Last Admin: 05/18/17 09:35 Dose: 25 mg Clopidogrel Bisulfate (Plavix) 75 mg PO DAILY [facility] Last Admin: 05/19/17 09:38 Dose: 75 mg Donepezil HCl (Aricept) 10 mg PO HS [facility] Last Admin: 05/20/17 00:27 Dose: 10 mg Ezetimibe (Zetia) 10 mg PO DAILY [facility] Last Admin: 05/19/17 09:39 Dose: 10 mg Ferrous Sulfate (Feosol) 324 mg PO BID [facility] Last Admin: 05/19/17 18:27 Dose: 324 mg Gabapentin (Neurontin) 300 mg PO DAILY [facility] PRN Reason: Protocol Last Admin: 05/19/17 09:39 Dose: 300 mg Glipizide (Glucotrol Xl) 10 mg PO DAILY [facility] Last Admin: 05/19/17 09:39 Dose: 10 mg Iron Sucrose 100 mg/ Sodium (Chloride) 105 mls @ 210 mls/hr IVPB DAILY [facility] Stop: 05/25/17 10:29 Last Admin: 05/19/17 14:33 Dose: 210 mls/hr Sodium Chloride (Sodium Chloride 0.9%) 1,000 mls @ 50 mls/hr IV .Q20H [facility] Last Admin: 05/19/17 09:40 Dose: 50 mls/hr Insulin Human Regular (Humulin R Low) 0 units SC [facility] PRN Reason: Protocol Last Admin: 05/19/17 17:01 Dose: Not Given Insulin Human Regular (Humulin R Low) 0 units SC [facility] PRN Reason: Protocol Last Admin: 05/19/17 17:04 Dose: Not Given Lidocaine (Lidoderm) 1 ea TD DAILY [facility] Last Admin: 05/19/17 18:32 Dose: 1 ea Meclizine HCl (Antivert) 25 mg PO Q8 [facility] Last Admin: 05/20/17 05:29 Dose: 25 mg Memantine (Namenda) 10 mg PO DAILY [facility] Last Admin: 05/19/17 09:39 Dose: 10 mg Metoprolol Tartrate (Lopressor) 25 mg PO BID [facility] Last Admin: 05/19/17 18:27 Dose: 25 mg Non-Formulary Medication (Nebivolol [Bystolic]) 5 mg PO DAILY [facility] Ondansetron HCl (Zofran Inj) 4 mg IVP Q6 PRN PRN Reason: Nausea/Vomiting Last Admin: 05/18/17 14:07 Dose: 4 mg Pantoprazole Sodium (Protonix Ec Tab) 40 mg PO DAILY [facility] Last Admin: 05/19/17 09:39 Dose: 40 mg Ropinirole HCl (Requip) 0.25 mg PO DAILY [facility] Last Admin: 05/19/17 09:38 Dose: 0.25 mg Sodium Bicarbonate (Sodium Bicarbonate Tab) 650 mg PO BID [facility] Last Admin: 05/19/17 18:26 Dose: 650 mg - Labs Labs: 05/20/17 08:40 05/20/17 08:40 PT 11.2 SECONDS (9.4-12.5) 05/17/17 12:50 INR 0.98 (0.93-1.08) 05/17/17 12:50 APTT 29.3 Seconds (25.1-36.5) 05/17/17 12:50 Assessment and Plan - Assessment and Plan (Free Text) Plan: 62 yr male w/ history chronic AL with cardiac stents x 7, HTN, Hyperlipidemia, DM II, gastroparesis, anemia, L eye blindness, degenerative stenosis at C5- C6-C7, R kidney complex cysts/mass & Renal insufficiency. Pt was recently discharge [facility] (05/10) and is now readmitted (05/17) for diarrhea. Today, pt is c/o dizziness and weakness. Denies any shortness of breath, chest pain, headache, fever, chills, diarrhea, constipation, paraesthesias, or urinary changes.agreed all above , chart ,meds and labs noted . d/d with [employer] , staff and pt will f/u
--- NOTE | 2017-05-19 23:21 | CON ---
DATE: HISTORY OF PRESENT ILLNESS: This is a 62-year-old male with past medical history of hypertension, diabetes, coronary artery disease, and chronic kidney disease, came to the emergency room with vomiting and diarrhea and also found to have a worsening of the renal insufficiency. Patient also complained of dizziness, that is why they called the consult Neurology. Patient said he has been having dizziness and diarrhea for 2 to 3 days, and also complained of night sweats and was having fever, which he feels better. Called to evaluate the patient. Also has a past medical history of peripheral neuropathy and restless legs syndrome. SOCIAL HISTORY: Does not smoke, does not drink. PHYSICAL EXAMINATION: HEENT: Normocephalic, atraumatic. NECK: Supple. NEUROLOGICAL: Alert, awake, and oriented x 3. No aphasia. Cranial nerves 2 to 12 are tested. Pupil reactive. EOM intact. Visual field full. No facial asymmetry. Tongue midline. Motor examination, moves all the extremities spontaneously. Deep tendon reflexes were 1+. Both plantars down-going. Sensory appears intact. Cerebellar, gait deferred. IMPRESSION: Vertigo, possibly benign positional. The patient also has anemia and acute renal insufficiency on chronic kidney disease. PLAN: We will do the CAT scan of the head and meclizine. We will follow up. Davie Jensen MD
[2017-05-20 08:54] LABS: BASO # 0.02 K/mm3 (0.0-2.0); BASO % 0.2 % (0.0-3.0); EOS # 0.6 (0.0-0.7); EOS % 6.5 % (1.5-5.0); GRAN # 5.33 (1.4-6.5); GRAN % 61.7 % (50.0-68.0); HEMOGLOBIN 10.2 g/dL (14.0-18.0); LYMPH # 2.3 (1.2-3.4); LYMPH % 26.1 % (22.0-35.0); MEAN CELL VOLUME 83.9 fl (80.0-105.0); MEAN CORPUSCULAR HEMOGLOBIN 27.4 pg (25.0-35.0); MEAN CORPUSCULAR HGB CONC 32.7 g/dl (31.0-37.0); MEAN PLATELET VOLUME 9.6 fl (7.0-11.0); MONO # 0.5 (0.1-0.6); MONO % 5.5 % (1.0-6.0); RBC 3.72 10^6/uL (3.5-6.1); RED CELL DISTRIBUTION WIDTH 16.8 % (11.5-14.5); WHITE BLOOD COUNT 8.7 10^3/ul (4.5-11.0)
[2017-05-20 09:01] LABS: ALB/GLOB RATIO 1.3 (1.1-1.8); ALBUMIN 3.8 g/dL (3.0-4.8); CALCIUM 9.8 mg/dL (8.4-10.5); MAGNESIUM 1.9 mg/dL (1.7-2.2)
[2017-05-20] MEDS: GlipiZIDE 10 mg SR Tab PO SCH (10:19)
[2017-05-20] MEDS: Pantoprazole 40 mg EC Tab PO SCH (10:20)
[2017-05-20] MEDS: Non Formulary Medication (Nebivolol [Bystolic] 5 MG) PO SCH (10:25)
[2017-05-20] MEDS: Lidocaine 5% Patch TD SCH (10:26)
[2017-05-20] MEDS: Insulin Reg-LOW-Coverage SC SCH ×5 (10:31→21:34)
[2017-05-20] MEDS: Sodium Chloride 0.9% 1,000 ML IV SCH ×2 (10:32→14:04)
--- NOTE | 2017-05-20 12:30 | CP.PCM.PN ---
Subjective - Date & Time of Evaluation Date of Evaluation: 05/20/17 Time of Evaluation: 11:05 - Subjective Subjective: No abdominal pain, no diarrhea, no dysuria, no fevers, but still feels weak. Objective - Vital Signs/Intake and Output Vital Signs (last 24 hours): Temp Pulse Resp BP Pulse Ox 98.6 F 79 20 147/89 99 05/20/17 07:30 05/20/17 07:30 05/20/17 07:30 05/20/17 07:30 05/20/17 07:30 Intake and Output: 05/20/17 05/20/17 06:59 18:59 Intake Total 760 Balance 760 - Medications Medications: Current Medications Amlodipine Besylate (Norvasc) 10 mg PO DAILY [facility] Last Admin: 05/19/17 09:38 Dose: 10 mg Aspirin (Ecotrin) 81 mg PO DAILY [facility] Last Admin: 05/19/17 09:39 Dose: 81 mg Atorvastatin Calcium (Lipitor) 40 mg PO DAILY [facility] Last Admin: 05/18/17 09:35 Dose: 40 mg Calcitriol (Rocaltrol) 0.25 mcg PO COUNTS INCLUDE 234 BEDS AT [facility] Chlorthalidone (Hygroton) 25 mg PO DAILY [facility] Last Admin: 05/18/17 09:35 Dose: 25 mg Clopidogrel Bisulfate (Plavix) 75 mg PO DAILY [facility] Last Admin: 05/19/17 09:38 Dose: 75 mg Donepezil HCl (Aricept) 10 mg PO HS [facility] Last Admin: 05/20/17 00:27 Dose: 10 mg Ezetimibe (Zetia) 10 mg PO DAILY [facility] Last Admin: 05/19/17 09:39 Dose: 10 mg Ferrous Sulfate (Feosol) 324 mg PO BID [facility] Last Admin: 05/19/17 18:27 Dose: 324 mg Gabapentin (Neurontin) 300 mg PO DAILY [facility] PRN Reason: Protocol Last Admin: 05/19/17 09:39 Dose: 300 mg Glipizide (Glucotrol Xl) 10 mg PO DAILY [facility] Last Admin: 05/19/17 09:39 Dose: 10 mg Iron Sucrose 100 mg/ Sodium (Chloride) 105 mls @ 210 mls/hr IVPB DAILY [facility] Stop: 05/25/17 10:29 Last Admin: 05/19/17 14:33 Dose: 210 mls/hr Sodium Chloride (Sodium Chloride 0.9%) 1,000 mls @ 50 mls/hr IV .Q20H [facility] Last Admin: 05/19/17 09:40 Dose: 50 mls/hr Insulin Human Regular (Humulin R Low) 0 units SC ACHS [facility] PRN Reason: Protocol Last Admin: 05/19/17 17:01 Dose: Not Given Insulin Human Regular (Humulin R Low) 0 units SC ACHS [facility] PRN Reason: Protocol Last Admin: 05/19/17 17:04 Dose: Not Given Lidocaine (Lidoderm) 1 ea TD DAILY [facility] Last Admin: 05/19/17 18:32 Dose: 1 ea Meclizine HCl (Antivert) 25 mg PO Q8 [facility] Last Admin: 05/20/17 05:29 Dose: 25 mg Memantine (Namenda) 10 mg PO DAILY [facility] Last Admin: 05/19/17 09:39 Dose: 10 mg Metoprolol Tartrate (Lopressor) 25 mg PO BID [facility] Last Admin: 05/19/17 18:27 Dose: 25 mg Non-Formulary Medication (Nebivolol [Bystolic]) 5 mg PO DAILY [facility] Ondansetron HCl (Zofran Inj) 4 mg IVP Q6 PRN PRN Reason: Nausea/Vomiting Last Admin: 05/18/17 14:07 Dose: 4 mg Pantoprazole Sodium (Protonix Ec Tab) 40 mg PO DAILY [facility] Last Admin: 05/19/17 09:39 Dose: 40 mg Ropinirole HCl (Requip) 0.25 mg PO DAILY [facility] Last Admin: 05/19/17 09:38 Dose: 0.25 mg Sodium Bicarbonate (Sodium Bicarbonate Tab) 650 mg PO BID [facility] Last Admin: 05/19/17 18:26 Dose: 650 mg - Labs Labs: 05/19/17 06:20 05/20/17 08:40 PT 11.2 SECONDS (9.4-12.5) 05/17/17 12:50 INR 0.98 (0.93-1.08) 05/17/17 12:50 APTT 29.3 Seconds (25.1-36.5) 05/17/17 12:50 - Constitutional Appears: Chronically Ill - Head Exam Head Exam: NORMAL INSPECTION - ENT Exam ENT Exam: Mucous Membranes Moist - Neck Exam Neck Exam: absent: Meningismus - Respiratory Exam Respiratory Exam: Decreased Breath Sounds - Cardiovascular Exam Cardiovascular Exam: +S1, +S2 - GI/Abdominal Exam GI & Abdominal Exam: Soft. absent: Tenderness Assessment and Plan - Assessment and Plan (Free Text) Plan: Assessment S/P leukocytosis probable acute stress reaction in this patient with gastroparesis diarrhea R/O C. diff. asymptomatic bacteriuria DM HTN chronic anemia CKD CAD S/P PCI Plan WBC count has normalized in less than 24 hours - will continue to monitor the patient off antibiotics; follow up stool for C. diff although patient does not have diarrhea anymore, blood cx are negative , patient has no urinary symptoms - will repeat urine cx will continue to monitor clinically
--- NOTE | 2017-05-20 17:27 | CP.PCM.PN ---
<Olivia Arana - Last Filed: 05/20/17 17:21> Subjective - Date & Time of Evaluation Date of Evaluation: 05/20/17 Time of Evaluation: 10:50 - Subjective Subjective: S&E at bedside, chart reviewed, had brain MRI, reports persistent asymmetric ventriculomegaly L>R unchanged, as on previous MRI 2017. Nausea better, no diarrhea, still c/o dizziness and weakness, seen by neurology service started on Meclazine. Objective - Vital Signs/Intake and Output Vital Signs (last 24 hours): Temp Pulse Resp BP Pulse Ox 98.6 F 79 20 100/51 L 99 05/20/17 07:30 05/20/17 07:30 05/20/17 07:30 05/20/17 10:24 05/20/17 07:30 Intake and Output: 05/20/17 05/20/17 06:59 18:59 Intake Total 760 Balance 760 - Medications Medications: Current Medications Amlodipine Besylate (Norvasc) 10 mg PO DAILY [facility] Last Admin: 05/20/17 10:24 Dose: Not Given Aspirin (Ecotrin) 81 mg PO DAILY [facility] Last Admin: 05/20/17 10:19 Dose: 81 mg Atorvastatin Calcium (Lipitor) 40 mg PO DAILY [facility] Last Admin: 05/18/17 09:35 Dose: 40 mg Calcitriol (Rocaltrol) 0.25 mcg PO TH [facility] Last Admin: 05/20/17 10:30 Dose: 0.25 mcg Chlorthalidone (Hygroton) 25 mg PO DAILY [facility] Last Admin: 05/18/17 09:35 Dose: 25 mg Clopidogrel Bisulfate (Plavix) 75 mg PO DAILY [facility] Last Admin: 05/20/17 10:19 Dose: 75 mg Donepezil HCl (Aricept) 10 mg PO HS [facility] Last Admin: 05/20/17 00:27 Dose: 10 mg Ezetimibe (Zetia) 10 mg PO DAILY [facility] Last Admin: 05/20/17 10:22 Dose: 10 mg Ferrous Sulfate (Feosol) 324 mg PO BID [facility] Last Admin: 05/20/17 10:20 Dose: 324 mg Gabapentin (Neurontin) 300 mg PO DAILY [facility] PRN Reason: Protocol Last Admin: 05/20/17 10:20 Dose: 300 mg Glipizide (Glucotrol Xl) 10 mg PO DAILY [facility] Last Admin: 05/20/17 10:19 Dose: 10 mg Iron Sucrose 100 mg/ Sodium (Chloride) 105 mls @ 210 mls/hr IVPB DAILY [facility] Stop: 05/25/17 10:29 Last Admin: 05/20/17 10:30 Dose: 210 mls/hr Sodium Chloride (Sodium Chloride 0.9%) 1,000 mls @ 50 mls/hr IV .Q20H [facility] Last Admin: 05/20/17 14:04 Dose: 50 mls/hr Insulin Human Regular (Humulin R Low) 0 units SC ACHS [facility] PRN Reason: Protocol Last Admin: 05/20/17 12:35 Dose: 4 units Lidocaine (Lidoderm) 1 ea TD DAILY [facility] Last Admin: 05/20/17 10:26 Dose: 1 ea Meclizine HCl (Antivert) 25 mg PO Q8 [facility] Last Admin: 05/20/17 14:45 Dose: 25 mg Memantine (Namenda) 10 mg PO DAILY [facility] Last Admin: 05/20/17 10:20 Dose: 10 mg Metoprolol Tartrate (Lopressor) 25 mg PO BID [facility] Last Admin: 05/20/17 10:25 Dose: 25 mg Non-Formulary Medication (Nebivolol [Bystolic]) 5 mg PO DAILY [facility] Last Admin: 05/20/17 10:25 Dose: Not Given Ondansetron HCl (Zofran Inj) 4 mg IVP Q6 PRN PRN Reason: Nausea/Vomiting Last Admin: 05/18/17 14:07 Dose: 4 mg Pantoprazole Sodium (Protonix Ec Tab) 40 mg PO DAILY [facility] Last Admin: 05/20/17 10:20 Dose: 40 mg Ropinirole HCl (Requip) 0.25 mg PO DAILY [facility] Last Admin: 05/20/17 10:22 Dose: 0.25 mg Sodium Bicarbonate (Sodium Bicarbonate Tab) 650 mg PO BID [facility] Last Admin: 05/20/17 10:25 Dose: 650 mg - Labs Labs: 05/20/17 08:40 05/20/17 08:40 PT 11.2 SECONDS (9.4-12.5) 05/17/17 12:50 INR 0.98 (0.93-1.08) 05/17/17 12:50 APTT 29.3 Seconds (25.1-36.5) 05/17/17 12:50 - Constitutional Appears: No Acute Distress - Head Exam Head Exam: NORMOCEPHALIC - Eye Exam Eye Exam: Normal appearance. absent: Scleral icterus - ENT Exam ENT Exam: Mucous Membranes Moist - Neck Exam Neck Exam: Normal Inspection - Respiratory Exam Respiratory Exam: NORMAL BREATHING PATTERN. absent: Respiratory Distress - Cardiovascular Exam Cardiovascular Exam: +S1, +S2 - GI/Abdominal Exam GI & Abdominal Exam: Soft, Normal Bowel Sounds. absent: Guarding, Tenderness, Rebound - Extremities Exam Extremities Exam: Normal Capillary Refill. absent: Calf Tenderness, Pedal Edema - Neurological Exam Neurological Exam: Alert, Awake, Oriented x3 - Skin Skin Exam: Dry, Warm Assessment and Plan - Assessment and Plan (Free Text) Assessment: Assessment: Dizziness Leukocytosis Nausea/vomiting/diarrhea, rule out C. difficile recent pneumonia with antibiotic use, consider nausea may be secondary to dizziness History of gastroparesis History of diabetes mellitus Coronary artery disease status post stent on Plavix Chronic anemia Chronic kidney disease Plan: Diet as tolerated, on solids, patient aware to eat small meals and chew food well on Protonix Monitor H&H and for overt GI bleed On iron supplements On Plavix Zofran when necessary neurology FU on Meclazine for repeat urine culture as per ID, previous urine cs report (+) E. feacalis, pt asymptomatic Seen and discussed with Dr. Bloom. <Jefferson Bloom V - Last Filed: 05/20/17 23:34> Objective - Vital Signs/Intake and Output Vital Signs (last 24 hours): Temp Pulse Resp BP Pulse Ox 98.1 F 67 18 152/92 H 97 05/20/17 16:00 05/20/17 16:00 05/20/17 16:00 05/20/17 16:00 05/20/17 16:00 Intake and Output: 05/20/17 05/21/17 18:59 06:59 Intake Total 1040 Balance 1040 - Medications Medications: Current Medications Amlodipine Besylate (Norvasc) 10 mg PO DAILY [facility] Last Admin: 05/20/17 10:24 Dose: Not Given Aspirin (Ecotrin) 81 mg PO DAILY [facility] Last Admin: 05/20/17 10:19 Dose: 81 mg Atorvastatin Calcium (Lipitor) 40 mg PO DAILY [facility] Last Admin: 05/18/17 09:35 Dose: 40 mg Calcitriol (Rocaltrol) 0.25 mcg PO TH [facility] Last Admin: 05/20/17 10:30 Dose: 0.25 mcg Chlorthalidone (Hygroton) 25 mg PO DAILY [facility] Last Admin: 05/18/17 09:35 Dose: 25 mg Clopidogrel Bisulfate (Plavix) 75 mg PO DAILY [facility] Last Admin: 05/20/17 10:19 Dose: 75 mg Donepezil HCl (Aricept) 10 mg PO HS [facility] Last Admin: 05/20/17 21:37 Dose: 10 mg Ezetimibe (Zetia) 10 mg PO DAILY [facility] Last Admin: 05/20/17 10:22 Dose: 10 mg Ferrous Sulfate (Feosol) 324 mg PO BID [facility] Last Admin: 05/20/17 19:08 Dose: 324 mg Gabapentin (Neurontin) 300 mg PO DAILY [facility] PRN Reason: Protocol Last Admin: 05/20/17 10:20 Dose: 300 mg Glipizide (Glucotrol Xl) 10 mg PO DAILY [facility] Last Admin: 05/20/17 10:19 Dose: 10 mg Iron Sucrose 100 mg/ Sodium (Chloride) 105 mls @ 210 mls/hr IVPB DAILY [facility] Stop: 05/25/17 10:29 Last Admin: 05/20/17 10:30 Dose: 210 mls/hr Insulin Human Regular (Humulin R Low) 0 units SC ACHS [facility] PRN Reason: Protocol Last Admin: 05/20/17 21:34 Dose: Not Given Lidocaine (Lidoderm) 1 ea TD DAILY [facility] Last Admin: 05/20/17 10:26 Dose: 1 ea Meclizine HCl (Antivert) 25 mg PO Q8 [facility] Last Admin: 05/20/17 21:37 Dose: 25 mg Memantine (Namenda) 10 mg PO DAILY [facility] Last Admin: 05/20/17 10:20 Dose: 10 mg Metoprolol Tartrate (Lopressor) 25 mg PO BID [facility] Last Admin: 05/20/17 19:10 Dose: 25 mg Non-Formulary Medication (Nebivolol [Bystolic]) 5 mg PO DAILY [facility] Last Admin: 05/20/17 10:25 Dose: Not Given Ondansetron HCl (Zofran Inj) 4 mg IVP Q6 PRN PRN Reason: Nausea/Vomiting Last Admin: 05/18/17 14:07 Dose: 4 mg Pantoprazole Sodium (Protonix Ec Tab) 40 mg PO DAILY [facility] Last Admin: 05/20/17 10:20 Dose: 40 mg Ropinirole HCl (Requip) 0.25 mg PO DAILY [facility] Last Admin: 05/20/17 10:22 Dose: 0.25 mg Sodium Bicarbonate (Sodium Bicarbonate Tab) 650 mg PO BID [facility] Last Admin: 05/20/17 19:10 Dose: 650 mg - Labs Labs: 05/20/17 08:40 05/20/17 08:40 PT 11.2 SECONDS (9.4-12.5) 05/17/17 12:50 INR 0.98 (0.93-1.08) 05/17/17 12:50 APTT 29.3 Seconds (25.1-36.5) 05/17/17 12:50 Attending/Attestation - Attestation I have personally seen and examined this patient.: Yes I have fully participated in the care of the patient.: Yes I have reviewed all pertinent clinical information, including history, physical exam and plan: Yes Notes (Text): This is an addendum to GI progress report dictated by Olivia Arana APN.The patient was seen and examined earlier. Medical records, lab studies, imagings were reviewed. Last 24 hours events reviewed. Agreed with the above treatment plan as outlined in Olivia Arana APN's notes the with the addition of the following 05/20/17 23:34
--- NOTE | 2017-05-20 17:27 | PN ---
DATE: REASON FOR CONSULTATION AND FOLLOWUP: Coronary artery disease, hypertension, hyperlipidemia, history of NV, admitted with nausea, diarrhea, abdominal pain, and generalized weakness. SUBJECTIVE: The patient is still complained of dizziness and weakness. No vomiting, no diarrhea. OBJECTIVE: GENERAL: Not in apparent distress, sitting on the chair. VITAL SIGNS: Temperature afebrile, heart rate 79, blood pressure 147/89. HEENT: PERRLA. Extraocular muscles intact. NECK: Supple. No carotid bruit, no thyromegaly. CHEST: Clear to auscultation. HEART: S1 and S2, regular. ABDOMEN: Soft. EXTREMITIES: Clubbing and cyanosis negative. LABORATORY DATA: Blood workup as follows: WBC 8.7, hemoglobin 10.8, hematocrit 31.2, platelet count 299. Chemistry showed sodium 142, potassium 4.2, chloride 106, carbon dioxide 25, anion gap of 16. BUN 33, creatinine 2.6. IMPRESSION: Acute kidney injury on chronic renal insufficiency, diabetes, hypertension, hyperlipidemia, coronary artery disease, status post multiple stents in the past, status post MRI of the brain. No acute finding noted. Nausea on admission, diarrhea stopped, abdominal pain stopped, generalized weakness still there. History of coronary artery disease, history of myocardial infarction and stent placement in the past. Recent stress test 06/15/2016, showed ejection fraction decreased to 48%, no ischemia. Echocardiogram on 05/06/2017, showed ejection fraction 50%, trace aortic regurgitation, mild aortic stenosis, [id number] mitral regurgitation, mild tricuspid regurgitation, diabetes, hypertension, hyperlipidemia, and leukocytosis. RECOMMENDATIONS: Continue gentle hydration, renal function improving, avoid nephrotoxic medication, continue baby aspirin, continue iron, continue Glucotrol, continue beta-maryellen. GI and Nephrology followup. CVS status is stable. No further cardiac workup is planned. Thank you Dr. Hoffman for providing us the opportunity in taking care of patient, Anyi Herrera. I will follow with you. If remains stable, possible discharge planning. Anyi Jacobo MD
--- NOTE | 2017-05-20 19:51 | PN ---
DATE: NEUROLOGY FOLLOWUP CHIEF COMPLAINT: Followup for dizziness. SUBJECTIVE: Patient is seen and examined at bedside. He is mildly dizzy, transferred to the room and was very deconditioned, some generalized weakness from underlying diarrhea. His diarrhea is much better. He is on meclizine for dizziness. His MRI of the brain showed no acute intracranial abnormalities, just chronic ventriculomegaly, which has not been changed. He will benefit from vestibular therapy as an outpatient and will need more outpatient PT/OT. Still managed to continue with gentle hydration. PAST MEDICAL HISTORY: History of chronic renal insufficiency, diabetes, hypertension, hyperlipidemia, coronary artery disease, status post stents. FAMILY HISTORY: Noncontributory. SOCIAL HISTORY: No illicit drug use, smoking, or ETOH abuse. ALLERGIES: NO KNOWN DRUG ALLERGIES. MEDICATION: Reviewed by nurse's reconciliation sheet. REVIEW OF SYSTEMS: Fourteen-point review of systems is negative except as per the HPI. PHYSICAL EXAMINATION: VITAL SIGNS: Temperature 98.6, 147/89, respiratory rate of 20, oxygen saturation of 99% on room air. GENERAL: Patient is sitting up at the edge of bed, in no acute distress. HEENT: Atraumatic and normocephalic. PERRLA. Extraocular muscles intact. NECK: Supple. No JVD. No adenopathy noted. LUNGS: Clear to auscultation. No adventitious sounds. HEART: S1 and S2. Normal rate and rhythm. No murmurs, rubs, or gallops. ABDOMEN: Soft, nontender, nondistended. Bowel sounds present. EXTREMITIES: No clubbing, no cyanosis. Peripheral pulses 2+ felt bilaterally. NEUROLOGIC: Patient is alert and oriented to person, place, month, and year. Speech is fluent without errors. Cranial nerves II through XII intact. Motor exam: Moves all extremities equally. Toes are downgoing bilaterally. Sensory exam: Decreased light touch, pinprick up to the calves bilaterally. Decreased vibration of the toes. DTRs are 2+ throughout, 1 at both knees and absent in the ankles. Coordination, [id number] intact. Gait is deferred for now. LABORATORY DATA: Sodium is 142, potassium 4.2, chloride of 106, carbon dioxide of 25, BUN of 33, creatinine 2.6, random glucose 126. ASSESSMENT AND PLAN: This is a 62-year-old man with history of hypertension, diabetes, coronary artery disease, status post stents, chronic kidney disease with [id number] renal insufficiency, with some vomiting and diarrhea for which he is getting gentle hydration and electrolyte derangements. Was consulted for dizziness. Dizziness seems more secondary to underlying general medical conditions from volume depletion from eyxma-hf-puzipyp renal insufficiency in addition to diarrhea and partially with positional vertigo component. He is deconditioned. RECOMMENDATIONS: At this time, recommend: 1. Continue meclizine 25 mg p.o. q.8 hours. 2. We will recommend outpatient vestibular therapy and physical therapy for deconditioned state and vestibular treatment for his dizziness. 3. Continue Lidoderm patch to his cervical area to prevent further back pain. 4. Continue gabapentin for neuropathic pain at dose of 300 mg p.o. daily. 5. Follow Cardiology recommendations. 6. Monitor electrolytes, correct accordingly, and avoid systolic drops of blood pressure. Once again, thank you for this followup. Papo Jensen MD
--- NOTE | 2017-05-20 21:33 | CP.PCM.PN ---
Subjective - Date & Time of Evaluation Date of Evaluation: 05/21/17 Time of Evaluation: 11:00 - Subjective Subjective: Patient still reporting generalized weakness and unsteadiness on ambulation though was able to walk with nursing assistance; tolerating diet well; Objective - Vital Signs/Intake and Output Vital Signs (last 24 hours): Temp Pulse Resp BP Pulse Ox 98.1 F 67 18 152/92 H 97 05/20/17 16:00 05/20/17 16:00 05/20/17 16:00 05/20/17 16:00 05/20/17 16:00 - Medications Medications: Current Medications Amlodipine Besylate (Norvasc) 10 mg PO DAILY [facility] Last Admin: 05/20/17 10:24 Dose: Not Given Aspirin (Ecotrin) 81 mg PO DAILY [facility] Last Admin: 05/20/17 10:19 Dose: 81 mg Atorvastatin Calcium (Lipitor) 40 mg PO DAILY [facility] Last Admin: 05/18/17 09:35 Dose: 40 mg Calcitriol (Rocaltrol) 0.25 mcg PO TH [facility] Last Admin: 05/20/17 10:30 Dose: 0.25 mcg Chlorthalidone (Hygroton) 25 mg PO DAILY [facility] Last Admin: 05/18/17 09:35 Dose: 25 mg Clopidogrel Bisulfate (Plavix) 75 mg PO DAILY [facility] Last Admin: 05/20/17 10:19 Dose: 75 mg Donepezil HCl (Aricept) 10 mg PO HS [facility] Last Admin: 05/20/17 00:27 Dose: 10 mg Ezetimibe (Zetia) 10 mg PO DAILY [facility] Last Admin: 05/20/17 10:22 Dose: 10 mg Ferrous Sulfate (Feosol) 324 mg PO BID [facility] Last Admin: 05/20/17 19:08 Dose: 324 mg Gabapentin (Neurontin) 300 mg PO DAILY [facility] PRN Reason: Protocol Last Admin: 05/20/17 10:20 Dose: 300 mg Glipizide (Glucotrol Xl) 10 mg PO DAILY [facility] Last Admin: 05/20/17 10:19 Dose: 10 mg Iron Sucrose 100 mg/ Sodium (Chloride) 105 mls @ 210 mls/hr IVPB DAILY [facility] Stop: 05/25/17 10:29 Last Admin: 05/20/17 10:30 Dose: 210 mls/hr Sodium Chloride (Sodium Chloride 0.9%) 1,000 mls @ 50 mls/hr IV .Q20H [facility] Last Admin: 05/20/17 14:04 Dose: 50 mls/hr Insulin Human Regular (Humulin R Low) 0 units SC ACHS [facility] PRN Reason: Protocol Last Admin: 05/20/17 19:56 Dose: Not Given Lidocaine (Lidoderm) 1 ea TD DAILY [facility] Last Admin: 05/20/17 10:26 Dose: 1 ea Meclizine HCl (Antivert) 25 mg PO Q8 [facility] Last Admin: 05/20/17 14:45 Dose: 25 mg Memantine (Namenda) 10 mg PO DAILY [facility] Last Admin: 05/20/17 10:20 Dose: 10 mg Metoprolol Tartrate (Lopressor) 25 mg PO BID [facility] Last Admin: 05/20/17 19:10 Dose: 25 mg Non-Formulary Medication (Nebivolol [Bystolic]) 5 mg PO DAILY [facility] Last Admin: 05/20/17 10:25 Dose: Not Given Ondansetron HCl (Zofran Inj) 4 mg IVP Q6 PRN PRN Reason: Nausea/Vomiting Last Admin: 05/18/17 14:07 Dose: 4 mg Pantoprazole Sodium (Protonix Ec Tab) 40 mg PO DAILY [facility] Last Admin: 05/20/17 10:20 Dose: 40 mg Ropinirole HCl (Requip) 0.25 mg PO DAILY [facility] Last Admin: 05/20/17 10:22 Dose: 0.25 mg Sodium Bicarbonate (Sodium Bicarbonate Tab) 650 mg PO BID [facility] Last Admin: 05/20/17 19:10 Dose: 650 mg - Labs Labs: 05/20/17 08:40 05/20/17 08:40 PT 11.2 SECONDS (9.4-12.5) 05/17/17 12:50 INR 0.98 (0.93-1.08) 05/17/17 12:50 APTT 29.3 Seconds (25.1-36.5) 05/17/17 12:50 - Constitutional Appears: Non-toxic, No Acute Distress - Eye Exam Eye Exam: absent: Scleral icterus - ENT Exam ENT Exam: Mucous Membranes Moist - Respiratory Exam Respiratory Exam: Clear to Ausculation Bilateral. absent: Respiratory Distress - Cardiovascular Exam Cardiovascular Exam: RRR, +S1, +S2 - GI/Abdominal Exam GI & Abdominal Exam: Soft. absent: Distended, Tenderness - Extremities Exam Additional comments: no leg edema; - Neurological Exam Neurological Exam: Alert, Awake - Psychiatric Exam Psychiatric exam: Normal Mood. absent: Agitated - Skin Skin Exam: Warm. absent: Cyanosis Assessment and Plan (1) Acute kidney injury Status: Resolved (2) Anemia of renal disease Assessment & Plan: With iron deficiency also, getting IV iron loading, continue to complete 10 doses total; if no improvement, will need EPO; Status: Chronic (3) Chronic kidney disease-mineral and bone disorder Assessment & Plan: STarted on calcitriol 0.25 mcg weekly, should monitor PTH monthly; monitor phos periodically (can increase with calcitriol); Status: Chronic (4) Hypertensive chronic kidney disease with stage 1 through stage 4 chronic kidney disease, or unspecified chronic kidney disease Assessment & Plan: BP fluctuating; amlodipine dose held this morning due to low/normal BP; will decrease dose to 5 mg for now; Status: Acute (5) CKD (chronic kidney disease) stage 4, GFR 15-29 ml/min Assessment & Plan: Renal function relatively stable; has mild proteinuria; will benefit from SANTINO inhibitor/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
--- NOTE | 2017-05-21 00:03 | CON ---
DATE: 05/20/2017 HISTORY OF PRESENT ILLNESS: A 62-year-old male who was admitted to [facility] and was with the diagnoses of vomiting, nausea, diarrhea and vertigo over 2 to 3 days. Patient denied any previous history of vertigo in the past. Denies any hearing loss or tinnitus associated with it. Though the vertigo is nonpositional, it is almost continuous. REVIEW OF SYSTEMS: For ear, nose and throat, was nonsignificant other than for the vertigo, which has persisted over the last 48 hours. SOCIAL HISTORY: Denied any smoking or EtOH abuse. PAST MEDICAL HISTORY: He did have a history of some cardiac and hypertension and respiratory problems as well. Neurologically, there were no defined symptoms in the past and did have a history of very poor vision. PHYSICAL EXAMINATION: EAR, NOSE AND THROAT: The patient showed signs of some deviated septum. Oropharyngeal exam was normal. The external auditory canals and tympanic membranes were normal bilaterally. There was no spontaneous nystagmus noted on physical examination. IMPRESSION AND PLAN: Vertigo, which could very well be vestibular related versus central etiologies. Patient is currently on meclizine and if not contraindicated due to other medical reasons, could benefit from a short-term dose of steroids, Decadron 10 mg IV q.8 hours for 48 hours. The patient should also follow up with us as an outpatient for further evaluation consisting of an audiogram and a videonystagmography if the symptoms persist. If you have any further questions regarding the care of this patient, feel free to contact my office. Sloan Das DO
[2017-05-21] MEDS: Pantoprazole 40 mg EC Tab PO SCH (10:39)
[2017-05-21] MEDS: Lidocaine 5% Patch TD SCH (10:39)
[2017-05-21] MEDS: GlipiZIDE 10 mg SR Tab PO SCH (10:40)
[2017-05-21] MEDS ORDERED: MethylPREDNISolone Depo 40 mg/ml Inj IM ONE (12:22)
[2017-05-21] MEDS ORDERED: Bupivacaine 0.5% Inj(30mL) IJ ONE (12:22)
--- NOTE | 2017-05-21 13:24 | CP.PCM.PN ---
Subjective - Date & Time of Evaluation Date of Evaluation: 03/20/18 Time of Evaluation: 12:00 - Subjective Subjective: NEUROLOGY FOLLOWUP CHIEF COMPLAINT: Followup for dizziness. SUBJECTIVE: Patient is seen and examined at bedside. He is mildly dizzy,and was very deconditioned, some generalized weakness from underlying diarrhea. His diarrhea is much better. He is onmeclizine for dizziness. His MRI of the brain showed no acute intracranial abnormalities, just chronic ventriculomegaly, which has not been changed. He will benefit from vestibular therapy as an outpatient and will need more outpatient PT/OT. Still managed to continue with gentle hydration. ENT note reviewed and agree. PAST MEDICAL HISTORY: History of chronic renal insufficiency, diabetes, hypertension, hyperlipidemia, coronary artery disease, status post stents. FAMILY HISTORY: Noncontributory. SOCIAL HISTORY: No illicit drug use, smoking, or ETOH abuse. ALLERGIES: NO KNOWN DRUG ALLERGIES. MEDICATION: Reviewed by nurse's reconciliation sheet. REVIEW OF SYSTEMS: Fourteen-point review of systems is negative except as per the HPI. PHYSICAL EXAMINATION: VITAL SIGNS: Reviewed. GENERAL: Patient is sitting up at the edge of bed, in no acute distress. HEENT: Atraumatic and normocephalic. PERRLA. Extraocular muscles intact. NECK: Supple. No JVD. No adenopathy noted. LUNGS: Clear to auscultation. No adventitious sounds. HEART: S1 and S2. Normal rate and rhythm. No murmurs, rubs, or gallops. ABDOMEN: Soft, nontender, nondistended. Bowel sounds present. EXTREMITIES: No clubbing, no cyanosis. Peripheral pulses 2+ felt bilaterally. NEUROLOGIC: Patient is alert and oriented to person, place, month, and year. Speech is fluent without errors. Cranial nerves II through XII intact. Motor exam: Moves all extremities equally. Toes are downgoing bilaterally. Sensory exam: Decreased light touch, pinprick up to the calves bilaterally. Decreased vibration of the toes. DTRs are 2+ throughout, 1 at both knees and absent in the ankles. Coordination, [id number] intact. Gait is deferred for now. LABORATORY DATA: Reviewed ASSESSMENT AND PLAN: This is a 62-year-old man with history of hypertension, diabetes, coronary artery disease, status post stents,chronic kidney disease with jbkzq-[id number] renal insufficiency, with some vomiting and diarrhea for which he is getting gentle hydration and electrolyte derangements. Was consulted for dizziness. Dizziness seems more secondary to underlying general medical conditions from volume depletion from fqxpa-kl-hyxzehs renal insufficiency in addition to diarrhea and partially with positional vertigo component. He is deconditioned. RECOMMENDATIONS: At this time, recommend: 1. Continue meclizine 25 mg p.o. q.8 hours. 2. We will recommend outpatient vestibular therapy and physical therapy for deconditioned state and vestibular treatment for his dizziness. DALIA. 3. Continue Lidoderm patch to his cervical area to prevent further back pain. 4. Continue gabapentin for neuropathic pain at dose of 300 mg p.o. daily. 5. Follow Cardiology recommendations. 6. Monitor electrolytes, correct accordingly, and avoid systolic drops of blood pressure. Once again, thank you for this followup. Papo Jensen MD Objective - Vital Signs/Intake and Output Vital Signs (last 24 hours): Temp Pulse Resp BP Pulse Ox 98.6 F 68 20 133/84 98 05/21/17 07:30 05/21/17 07:30 05/21/17 07:30 05/21/17 07:30 05/21/17 07:30 Intake and Output: 05/21/17 05/21/17 06:59 18:59 Intake Total 1220 Balance 1220 - Medications Medications: Current Medications Amlodipine Besylate (Norvasc) 5 mg PO DAILY [facility] Last Admin: 05/21/17 10:40 Dose: 5 mg Aspirin (Ecotrin) 81 mg PO DAILY [facility] Last Admin: 05/21/17 10:40 Dose: 81 mg Atorvastatin Calcium (Lipitor) 40 mg PO DAILY [facility] Last Admin: 05/18/17 09:35 Dose: 40 mg Calcitriol (Rocaltrol) 0.25 mcg PO [facility] Last Admin: 05/20/17 10:30 Dose: 0.25 mcg Chlorthalidone (Hygroton) 25 mg PO DAILY [facility] Last Admin: 05/18/17 09:35 Dose: 25 mg Clopidogrel Bisulfate (Plavix) 75 mg PO DAILY [facility] Last Admin: 05/21/17 10:40 Dose: 75 mg Donepezil HCl (Aricept) 10 mg PO [facility] Last Admin: 05/20/17 21:37 Dose: 10 mg Ezetimibe (Zetia) 10 mg PO DAILY [facility] Last Admin: 05/21/17 10:40 Dose: 10 mg Ferrous Sulfate (Feosol) 324 mg PO BID [facility] Last Admin: 05/21/17 10:40 Dose: 324 mg Gabapentin (Neurontin) 300 mg PO DAILY [facility] PRN Reason: Protocol Last Admin: 05/21/17 10:40 Dose: 300 mg Glipizide (Glucotrol Xl) 10 mg PO DAILY [facility] Last Admin: 05/21/17 10:40 Dose: 10 mg Iron Sucrose 100 mg/ Sodium (Chloride) 105 mls @ 210 mls/hr IVPB DAILY [facility] Stop: 05/25/17 10:29 Last Admin: 05/21/17 10:39 Dose: 210 mls/hr Insulin Human Regular (Humulin R Low) 0 units SC ACHS [facility] PRN Reason: Protocol Last Admin: 05/20/17 21:34 Dose: Not Given Lidocaine (Lidoderm) 1 ea TD DAILY [facility] Last Admin: 05/21/17 10:39 Dose: 1 ea Meclizine HCl (Antivert) 25 mg PO Q8 [facility] Last Admin: 05/21/17 05:05 Dose: 25 mg Memantine (Namenda) 10 mg PO DAILY [facility] Last Admin: 05/21/17 10:40 Dose: 10 mg Metoprolol Tartrate (Lopressor) 25 mg PO BID [facility] Last Admin: 05/21/17 10:39 Dose: 25 mg Non-Formulary Medication (Nebivolol [Bystolic]) 5 mg PO DAILY [facility] Last Admin: 05/20/17 10:25 Dose: Not Given Ondansetron HCl (Zofran Inj) 4 mg IVP Q6 PRN PRN Reason: Nausea/Vomiting Last Admin: 05/18/17 14:07 Dose: 4 mg Pantoprazole Sodium (Protonix Ec Tab) 40 mg PO DAILY [facility] Last Admin: 05/21/17 10:39 Dose: 40 mg Ropinirole HCl (Requip) 0.25 mg PO DAILY [facility] Last Admin: 05/21/17 10:40 Dose: 0.25 mg Sodium Bicarbonate (Sodium Bicarbonate Tab) 650 mg PO BID [facility] Last Admin: 05/21/17 10:40 Dose: 650 mg - Labs Labs: 05/20/17 08:40 05/20/17 08:40 PT 11.2 SECONDS (9.4-12.5) 05/17/17 12:50 INR 0.98 (0.93-1.08) 05/17/17 12:50 APTT 29.3 Seconds (25.1-36.5) 05/17/17 12:50
--- NOTE | 2017-05-21 14:03 | CP.PCM.PN ---
Subjective - Date & Time of Evaluation Date of Evaluation: 05/21/17 Time of Evaluation: 10:40 - Subjective Subjective: No fevers, no diarrhea, still feels weak. Objective - Vital Signs/Intake and Output Vital Signs (last 24 hours): Temp Pulse Resp BP Pulse Ox 98.6 F 68 20 133/84 98 05/21/17 07:30 05/21/17 07:30 05/21/17 07:30 05/21/17 07:30 05/21/17 07:30 Intake and Output: 05/21/17 05/21/17 06:59 18:59 Intake Total 1220 Balance 1220 - Medications Medications: Current Medications Amlodipine Besylate (Norvasc) 5 mg PO DAILY [facility] Last Admin: 05/21/17 10:40 Dose: 5 mg Aspirin (Ecotrin) 81 mg PO DAILY [facility] Last Admin: 05/21/17 10:40 Dose: 81 mg Atorvastatin Calcium (Lipitor) 40 mg PO DAILY [facility] Last Admin: 05/18/17 09:35 Dose: 40 mg Calcitriol (Rocaltrol) 0.25 mcg PO TH [facility] Last Admin: 05/20/17 10:30 Dose: 0.25 mcg Chlorthalidone (Hygroton) 25 mg PO DAILY [facility] Last Admin: 05/18/17 09:35 Dose: 25 mg Clopidogrel Bisulfate (Plavix) 75 mg PO DAILY [facility] Last Admin: 05/21/17 10:40 Dose: 75 mg Donepezil HCl (Aricept) 10 mg PO HS [facility] Last Admin: 05/20/17 21:37 Dose: 10 mg Ezetimibe (Zetia) 10 mg PO DAILY [facility] Last Admin: 05/21/17 10:40 Dose: 10 mg Ferrous Sulfate (Feosol) 324 mg PO BID [facility] Last Admin: 05/21/17 10:40 Dose: 324 mg Gabapentin (Neurontin) 300 mg PO DAILY [facility] PRN Reason: Protocol Last Admin: 05/21/17 10:40 Dose: 300 mg Glipizide (Glucotrol Xl) 10 mg PO DAILY [facility] Last Admin: 05/21/17 10:40 Dose: 10 mg Iron Sucrose 100 mg/ Sodium (Chloride) 105 mls @ 210 mls/hr IVPB DAILY [facility] Stop: 05/25/17 10:29 Last Admin: 05/21/17 10:39 Dose: 210 mls/hr Insulin Human Regular (Humulin R Low) 0 units SC ACHS [facility] PRN Reason: Protocol Last Admin: 05/20/17 21:34 Dose: Not Given Lidocaine (Lidoderm) 1 ea TD DAILY [facility] Last Admin: 05/21/17 10:39 Dose: 1 ea Meclizine HCl (Antivert) 25 mg PO Q8 [facility] Last Admin: 05/21/17 05:05 Dose: 25 mg Memantine (Namenda) 10 mg PO DAILY [facility] Last Admin: 05/21/17 10:40 Dose: 10 mg Metoprolol Tartrate (Lopressor) 25 mg PO BID [facility] Last Admin: 05/21/17 10:39 Dose: 25 mg Non-Formulary Medication (Nebivolol [Bystolic]) 5 mg PO DAILY [facility] Last Admin: 05/20/17 10:25 Dose: Not Given Ondansetron HCl (Zofran Inj) 4 mg IVP Q6 PRN PRN Reason: Nausea/Vomiting Last Admin: 05/18/17 14:07 Dose: 4 mg Pantoprazole Sodium (Protonix Ec Tab) 40 mg PO DAILY [facility] Last Admin: 05/21/17 10:39 Dose: 40 mg Ropinirole HCl (Requip) 0.25 mg PO DAILY [facility] Last Admin: 05/21/17 10:40 Dose: 0.25 mg Sodium Bicarbonate (Sodium Bicarbonate Tab) 650 mg PO BID [facility] Last Admin: 05/21/17 10:40 Dose: 650 mg - Labs Labs: 05/20/17 08:40 05/20/17 08:40 PT 11.2 SECONDS (9.4-12.5) 05/17/17 12:50 INR 0.98 (0.93-1.08) 05/17/17 12:50 APTT 29.3 Seconds (25.1-36.5) 05/17/17 12:50 - Constitutional Appears: Chronically Ill - Head Exam Head Exam: NORMAL INSPECTION - ENT Exam ENT Exam: Mucous Membranes Moist - Neck Exam Neck Exam: absent: Meningismus - Respiratory Exam Respiratory Exam: Decreased Breath Sounds - Cardiovascular Exam Cardiovascular Exam: +S1, +S2 - GI/Abdominal Exam GI & Abdominal Exam: Soft. absent: Tenderness Assessment and Plan - Assessment and Plan (Free Text) Plan: Assessment S/P leukocytosis probable acute stress reaction in this patient with gastroparesis diarrhea R/O C. diff. asymptomatic bacteriuria DM HTN chronic anemia CKD CAD S/P PCI Plan WBC count has normalized in less than 24 hours - will continue to monitor the patient off antibiotics; follow up stool for C. diff although patient does not have diarrhea anymore, blood cx are negative , patient has no urinary symptoms - follow up repeat urine cx results will continue to monitor clinically
--- NOTE | 2017-05-21 14:03 | PN ---
DATE: SUBJECTIVE: The patient examined at the bedside, still complaining of body pain, headache, dizziness. Not nauseous, no vomiting, no underlying diarrhea, but feeling very fatigue and tired. No dyspnea, no chest pain, no palpitation. No hematuria, no hematochezia. PHYSICAL EXAMINATION: VITAL SIGNS: Temperature 98.3, blood pressure 147/89, respiratory rate 20, oxygenation 99% on room air. HEENT: Head normocephalic, atraumatic. Eyes: PERRLA. Extraocular muscles intact. Conjunctivae clear. Nose patent. Mucous membranes are moist. NECK: Supple. No carotid bruits. No JVD or thyromegaly. CHEST: Bilaterally symmetrical. HEART: S1 and S2 positive. LUNGS: Clear to auscultation. ABDOMEN: Soft. Bowel sounds present. No organomegaly. EXTREMITIES: No edema. No cyanosis. NEUROLOGIC: The patient is awake and alert. Moving all four extremities. No focal deficit. MEDICATIONS: Antivert, Aricept, Ecotrin, insulin, iron, Lidoderm, Lipitor, Lopressor, Namenda. LABORATORY DATA: White blood cell is 8.2, hemoglobin 10.2, hematocrit 31.2, platelet 299. Sodium 142, potassium 4.2, BUN 36, creatinine 2.6, glucose 145. ASSESSMENT AND PLAN: Mr. Anyi Herrera is a 52-year-old male with leukocytosis, anemia, renal insufficiency, hyperglycemia, proteinuria, hematuria, seen by Dr. Vasquez Rosales, breeder hen service technician; has acute kidney injury, anemia of renal disease, chronic kidney disease, mineral and bone disorder, hypertension, chronic kidney disease, with stage 1 through stage 4 chronic kidney disease or unspecified chronic kidney disease, chronic kidney disease stage 4, GFR [address] Vasquez Rosales's input, seen by Dr. Papo Jensen. The patient is still feeling dizzy. According to neurologist, the patient will need vestibular therapy. It can be done as outpatient. He has history of hypertension, diabetes mellitus, coronary artery disease, cardiac stenting, history of dehydration. According to neurologist, the dizziness may be due to secondary to underlying general medical condition from volume loss/depletion from acute to chronic. Continue meclizine outpatient vestibular therapy and physical therapy for deconditioning state and rest of the treatment for his dizziness. Continue Lidoderm patch, gabapentin. The patient has cardiomegaly, receptionist secretary is on the case, waiting for ENT input. Physical therapy called, we will wait for physical therapy input, may be patient need subacute rehab. We will follow. Gill Hoffman MD [facility]
--- NOTE | 2017-05-21 15:18 | CP.PCM.PN ---
Subjective - Date & Time of Evaluation Date of Evaluation: 05/21/17 Time of Evaluation: 09:50 - Subjective Subjective: Chief Complaint: Dizziness, weakness 62 yr male w/ history chronic GA with cardiac stents x 7, HTN, Hyperlipidemia, DM II, gastroparesis, anemia, L eye blindness, degenerative stenosis at C5- C6-C7, R kidney complex cysts/mass & Renal insufficiency. Pt was recently discharge [facility] (05/10) and is now readmitted (05/17) for diarrhea. Today, pt is reporting small relief of dizziness and weakness. Denies any shortness of breath, chest pain, headache, fever, chills, diarrhea, constipation , paraesthesias, or urinary changes. Objective - Vital Signs/Intake and Output Vital Signs (last 24 hours): Temp Pulse Resp BP Pulse Ox 98.6 F 68 20 133/84 98 05/21/17 07:30 05/21/17 07:30 05/21/17 07:30 05/21/17 07:30 05/21/17 07:30 Intake and Output: 05/21/17 05/21/17 06:59 18:59 Intake Total 1220 540 Balance 1220 540 - Medications Medications: Current Medications Amlodipine Besylate (Norvasc) 5 mg PO DAILY [facility] Last Admin: 05/21/17 10:40 Dose: 5 mg Aspirin (Ecotrin) 81 mg PO DAILY [facility] Last Admin: 05/21/17 10:40 Dose: 81 mg Atorvastatin Calcium (Lipitor) 40 mg PO DAILY [facility] Last Admin: 05/18/17 09:35 Dose: 40 mg Calcitriol (Rocaltrol) 0.25 mcg PO TH [facility] Last Admin: 05/20/17 10:30 Dose: 0.25 mcg Chlorthalidone (Hygroton) 25 mg PO DAILY [facility] Last Admin: 05/18/17 09:35 Dose: 25 mg Clopidogrel Bisulfate (Plavix) 75 mg PO DAILY [facility] Last Admin: 05/21/17 10:40 Dose: 75 mg Donepezil HCl (Aricept) 10 mg PO HS [facility] Last Admin: 05/20/17 21:37 Dose: 10 mg Ezetimibe (Zetia) 10 mg PO DAILY [facility] Last Admin: 05/21/17 10:40 Dose: 10 mg Ferrous Sulfate (Feosol) 324 mg PO BID [facility] Last Admin: 05/21/17 10:40 Dose: 324 mg Gabapentin (Neurontin) 300 mg PO DAILY [facility] PRN Reason: Protocol Last Admin: 05/21/17 10:40 Dose: 300 mg Glipizide (Glucotrol Xl) 10 mg PO DAILY [facility] Last Admin: 05/21/17 10:40 Dose: 10 mg Iron Sucrose 100 mg/ Sodium (Chloride) 105 mls @ 210 mls/hr IVPB DAILY [facility] Stop: 05/25/17 10:29 Last Admin: 05/21/17 10:39 Dose: 210 mls/hr Insulin Human Regular (Humulin R Low) 0 units SC ACHS [facility] PRN Reason: Protocol Last Admin: 05/20/17 21:34 Dose: Not Given Lidocaine (Lidoderm) 1 ea TD DAILY [facility] Last Admin: 05/21/17 10:39 Dose: 1 ea Meclizine HCl (Antivert) 25 mg PO Q8 [facility] Last Admin: 05/21/17 14:29 Dose: 25 mg Memantine (Namenda) 10 mg PO DAILY [facility] Last Admin: 05/21/17 10:40 Dose: 10 mg Metoprolol Tartrate (Lopressor) 25 mg PO BID [facility] Last Admin: 05/21/17 10:39 Dose: 25 mg Non-Formulary Medication (Nebivolol [Bystolic]) 5 mg PO DAILY [facility] Last Admin: 05/20/17 10:25 Dose: Not Given Ondansetron HCl (Zofran Inj) 4 mg IVP Q6 PRN PRN Reason: Nausea/Vomiting Last Admin: 05/18/17 14:07 Dose: 4 mg Pantoprazole Sodium (Protonix Ec Tab) 40 mg PO DAILY [facility] Last Admin: 05/21/17 10:39 Dose: 40 mg Ropinirole HCl (Requip) 0.25 mg PO DAILY [facility] Last Admin: 05/21/17 10:40 Dose: 0.25 mg Sodium Bicarbonate (Sodium Bicarbonate Tab) 650 mg PO BID [facility] Last Admin: 05/21/17 10:40 Dose: 650 mg - Labs Labs: 05/20/17 08:40 05/20/17 08:40 PT 11.2 SECONDS (9.4-12.5) 05/17/17 12:50 INR 0.98 (0.93-1.08) 05/17/17 12:50 APTT 29.3 Seconds (25.1-36.5) 05/17/17 12:50 - Constitutional Appears: Chronically Ill - Head Exam Head Exam: ATRAUMATIC, NORMAL INSPECTION, NORMOCEPHALIC - Eye Exam Eye Exam: EOMI, Normal appearance, PERRL Pupil Exam: NORMAL ACCOMODATION, PERRL - ENT Exam ENT Exam: Mucous Membranes Moist, Normal Exam - Neck Exam Neck Exam: Full ROM, Normal Inspection. absent: Lymphadenopathy - Respiratory Exam Respiratory Exam: Clear to Ausculation Bilateral, NORMAL BREATHING PATTERN - Cardiovascular Exam Cardiovascular Exam: REGULAR RHYTHM, +S1, +S2. absent: Murmur - GI/Abdominal Exam GI & Abdominal Exam: Soft, Normal Bowel Sounds. absent: Tenderness - Extremities Exam Extremities Exam: Full ROM, Normal Capillary Refill, Normal Inspection. absent : Joint Swelling, Pedal Edema - Back Exam Back Exam: NORMAL INSPECTION - Neurological Exam Neurological Exam: Alert, Awake, Oriented x3 - Psychiatric Exam Psychiatric exam: Normal Affect, Normal Mood - Skin Skin Exam: Dry, Intact, Normal Color, Warm Assessment and Plan (1) Dizziness Status: Acute (2) Weakness Status: Acute (3) UTI (urinary tract infection) Status: Acute (4) Abnormal EKG Status: Acute (5) Anemia of renal disease Status: Chronic (6) Chronic kidney disease-mineral and bone disorder Status: Chronic - Assessment and Plan (Free Text) Plan: Recommendation: vesitbular therapy and DALIA for deconditioning per neurologist, thank you for your input. Stool culture pending for c. diff. IVF hydration. IV venofer. VTE/GI prophylaxsis. PT/OT on board. Consults: Cardio - Dr. Jacobo Pulmo - Dr. Viramontes GI - Dr. Bloom Nephro - Dr. Rutherford Neuro - Dr. Jensen Reviewed: MRI brain = CT abd/pelvis = cardiomegaly & trace pericardial effusion noted, resolution of suspected R basilar patchy pneumonia CXR = WNL ECG = ABNORMAL, NSR, L axis deviation, mod voltage criteria for LVH, cannot rule out septal infarct
--- NOTE | 2017-05-21 15:41 | RAD ---
PROCEDURE: Right ribs HISTORY: rt rib cage pain lower ribs COMPARISON: TECHNIQUE: Three views FINDINGS: There is no evidence of displaced rib fracture or pneumothorax IMPRESSION: Negative study
--- NOTE | 2017-05-21 18:26 | CP.PCM.PN ---
<Olivia Arana - Last Filed: 05/21/17 18:25> Subjective - Date & Time of Evaluation Date of Evaluation: 05/21/17 Time of Evaluation: 11:20 - Subjective Subjective: Seen and examined at the bedside earlier today, patient denies nausea, last bowel movement was Wednesday denies any vomiting, tolerating oral intake. No complaints of abdominal pain, dizziness improved. Patient was seen by ENT yesterday. Objective - Vital Signs/Intake and Output Vital Signs (last 24 hours): Temp Pulse Resp BP Pulse Ox 98.6 F 68 20 133/84 98 05/21/17 07:30 05/21/17 07:30 05/21/17 07:30 05/21/17 07:30 05/21/17 07:30 Intake and Output: 05/21/17 05/21/17 06:59 18:59 Intake Total 1220 540 Balance 1220 540 - Medications Medications: Current Medications Amlodipine Besylate (Norvasc) 5 mg PO DAILY [facility] Last Admin: 05/21/17 10:40 Dose: 5 mg Aspirin (Ecotrin) 81 mg PO DAILY [facility] Last Admin: 05/21/17 10:40 Dose: 81 mg Atorvastatin Calcium (Lipitor) 40 mg PO DAILY [facility] Last Admin: 05/18/17 09:35 Dose: 40 mg Calcitriol (Rocaltrol) 0.25 mcg PO TH [facility] Last Admin: 05/20/17 10:30 Dose: 0.25 mcg Chlorthalidone (Hygroton) 25 mg PO DAILY [facility] Last Admin: 05/18/17 09:35 Dose: 25 mg Clopidogrel Bisulfate (Plavix) 75 mg PO DAILY [facility] Last Admin: 05/21/17 10:40 Dose: 75 mg Donepezil HCl (Aricept) 10 mg PO HS [facility] Last Admin: 05/20/17 21:37 Dose: 10 mg Ezetimibe (Zetia) 10 mg PO DAILY [facility] Last Admin: 05/21/17 10:40 Dose: 10 mg Ferrous Sulfate (Feosol) 324 mg PO BID [facility] Last Admin: 05/21/17 10:40 Dose: 324 mg Gabapentin (Neurontin) 300 mg PO DAILY [facility] PRN Reason: Protocol Last Admin: 05/21/17 10:40 Dose: 300 mg Glipizide (Glucotrol Xl) 10 mg PO DAILY [facility] Last Admin: 05/21/17 10:40 Dose: 10 mg Iron Sucrose 100 mg/ Sodium (Chloride) 105 mls @ 210 mls/hr IVPB DAILY [facility] Stop: 05/25/17 10:29 Last Admin: 05/21/17 10:39 Dose: 210 mls/hr Insulin Human Regular (Humulin R Low) 0 units SC ACHS [facility] PRN Reason: Protocol Last Admin: 05/20/17 21:34 Dose: Not Given Lidocaine (Lidoderm) 1 ea TD DAILY [facility] Last Admin: 05/21/17 10:39 Dose: 1 ea Meclizine HCl (Antivert) 25 mg PO Q8 [facility] Last Admin: 05/21/17 14:29 Dose: 25 mg Memantine (Namenda) 10 mg PO DAILY [facility] Last Admin: 05/21/17 10:40 Dose: 10 mg Metoprolol Tartrate (Lopressor) 25 mg PO BID [facility] Last Admin: 05/21/17 10:39 Dose: 25 mg Non-Formulary Medication (Nebivolol [Bystolic]) 5 mg PO DAILY [facility] Last Admin: 05/20/17 10:25 Dose: Not Given Ondansetron HCl (Zofran Inj) 4 mg IVP Q6 PRN PRN Reason: Nausea/Vomiting Last Admin: 05/18/17 14:07 Dose: 4 mg Pantoprazole Sodium (Protonix Ec Tab) 40 mg PO DAILY [facility] Last Admin: 05/21/17 10:39 Dose: 40 mg Ropinirole HCl (Requip) 0.25 mg PO DAILY [facility] Last Admin: 05/21/17 10:40 Dose: 0.25 mg Sodium Bicarbonate (Sodium Bicarbonate Tab) 650 mg PO BID [facility] Last Admin: 05/21/17 10:40 Dose: 650 mg - Labs Labs: 05/20/17 08:40 05/20/17 08:40 PT 11.2 SECONDS (9.4-12.5) 05/17/17 12:50 INR 0.98 (0.93-1.08) 05/17/17 12:50 APTT 29.3 Seconds (25.1-36.5) 05/17/17 12:50 - Constitutional Appears: No Acute Distress - Head Exam Head Exam: NORMOCEPHALIC - Eye Exam Eye Exam: Normal appearance. absent: Scleral icterus - ENT Exam ENT Exam: Mucous Membranes Moist - Respiratory Exam Respiratory Exam: NORMAL BREATHING PATTERN. absent: Respiratory Distress - Cardiovascular Exam Cardiovascular Exam: +S1, +S2 - GI/Abdominal Exam GI & Abdominal Exam: Soft, Normal Bowel Sounds. absent: Guarding, Tenderness, Rebound - Neurological Exam Neurological Exam: Alert, Awake, Oriented x3 Assessment and Plan - Assessment and Plan (Free Text) Assessment: Assessment: Dizziness Leukocytosis Improved Nausea/vomiting Resolved diarrhea History of gastroparesis History of diabetes mellitus Coronary artery disease status post stent on Plavix Chronic anemia Chronic kidney disease Plan: Diet as tolerated, on solids, patient aware to eat small meals and chew food well on Protonix Monitor H&H and for overt GI bleed On iron supplements On Plavix Zofran when necessary neurology FU on Meclazine start Colace, if no Bm consider Miralax Seen and discussed with Dr. Bloom. <Jefferson Bloom V - Last Filed: 05/22/17 00:23> Objective - Vital Signs/Intake and Output Vital Signs (last 24 hours): Temp Pulse Resp BP Pulse Ox 98.6 F 61 20 133/84 98 05/21/17 07:30 05/21/17 16:25 05/21/17 16:25 05/21/17 07:30 05/21/17 16:25 Intake and Output: 05/21/17 05/22/17 18:59 06:59 Intake Total 540 Balance 540 - Medications Medications: Current Medications Amlodipine Besylate (Norvasc) 5 mg PO DAILY [facility] Last Admin: 05/21/17 10:40 Dose: 5 mg Aspirin (Ecotrin) 81 mg PO DAILY [facility] Last Admin: 05/21/17 10:40 Dose: 81 mg Atorvastatin Calcium (Lipitor) 40 mg PO DAILY [facility] Last Admin: 05/18/17 09:35 Dose: 40 mg Calcitriol (Rocaltrol) 0.25 mcg PO TH [facility] Last Admin: 05/20/17 10:30 Dose: 0.25 mcg Chlorthalidone (Hygroton) 25 mg PO DAILY [facility] Last Admin: 05/18/17 09:35 Dose: 25 mg Clopidogrel Bisulfate (Plavix) 75 mg PO DAILY [facility] Last Admin: 05/21/17 10:40 Dose: 75 mg Docusate Sodium (Colace) 100 mg PO BID [facility] Last Admin: 05/21/17 18:35 Dose: 100 mg Donepezil HCl (Aricept) 10 mg PO HS [facility] Last Admin: 05/21/17 21:30 Dose: 10 mg Ezetimibe (Zetia) 10 mg PO DAILY [facility] Last Admin: 05/21/17 10:40 Dose: 10 mg Ferrous Sulfate (Feosol) 324 mg PO BID [facility] Last Admin: 05/21/17 18:20 Dose: 324 mg Gabapentin (Neurontin) 300 mg PO DAILY [facility] PRN Reason: Protocol Last Admin: 05/21/17 10:40 Dose: 300 mg Glipizide (Glucotrol Xl) 10 mg PO DAILY [facility] Last Admin: 05/21/17 10:40 Dose: 10 mg Iron Sucrose 100 mg/ Sodium (Chloride) 105 mls @ 210 mls/hr IVPB DAILY [facility] Stop: 05/25/17 10:29 Last Admin: 05/21/17 10:39 Dose: 210 mls/hr Insulin Human Regular (Humulin R Low) 0 units SC ACHS [facility] PRN Reason: Protocol Last Admin: 05/21/17 21:07 Dose: Not Given Lidocaine (Lidoderm) 1 ea TD DAILY [facility] Last Admin: 05/21/17 10:39 Dose: 1 ea Meclizine HCl (Antivert) 25 mg PO Q8 [facility] Last Admin: 05/21/17 21:30 Dose: 25 mg Memantine (Namenda) 10 mg PO DAILY [facility] Last Admin: 05/21/17 10:40 Dose: 10 mg Metoprolol Tartrate (Lopressor) 25 mg PO BID [facility] Last Admin: 05/21/17 18:20 Dose: 25 mg Non-Formulary Medication (Nebivolol [Bystolic]) 5 mg PO DAILY [facility] Last Admin: 05/20/17 10:25 Dose: Not Given Ondansetron HCl (Zofran Inj) 4 mg IVP Q6 PRN PRN Reason: Nausea/Vomiting Last Admin: 05/18/17 14:07 Dose: 4 mg Pantoprazole Sodium (Protonix Ec Tab) 40 mg PO DAILY [facility] Last Admin: 05/21/17 10:39 Dose: 40 mg Ropinirole HCl (Requip) 0.25 mg PO DAILY [facility] Last Admin: 05/21/17 10:40 Dose: 0.25 mg Sodium Bicarbonate (Sodium Bicarbonate Tab) 650 mg PO BID [facility] Last Admin: 02/23/18 18:20 Dose: 650 mg - Labs Labs: 05/20/17 08:40 05/20/17 08:40 PT 11.2 SECONDS (9.4-12.5) 05/17/17 12:50 INR 0.98 (0.93-1.08) 05/17/17 12:50 APTT 29.3 Seconds (25.1-36.5) 05/17/17 12:50 Attending/Attestation - Attestation I have personally seen and examined this patient.: Yes I have fully participated in the care of the patient.: Yes I have reviewed all pertinent clinical information, including history, physical exam and plan: Yes Notes (Text): This is an addendum to GI progress report dictated by Olivia Arana APN.The patient was seen and examined earlier. Medical records, lab studies, imagings were reviewed. Last 24 hours events reviewed. Agreed with the above treatment plan as outlined in Olivia Arana APN's notes the with the addition of the following 05/22/17 00:21
[2017-05-21] MEDS: Insulin Reg-LOW-Coverage SC SCH (21:07)
--- NOTE | 2017-05-21 21:50 | PN ---
DATE: 05/21/2017 LOCATION: Patient in room 561, bed 1. REASON FOR CONSULTATION AND FOLLOWUP: Coronary artery disease, hypertension, hyperlipidemia, history of KS, admitted with nausea, diarrhea, abdominal pain and generalized weakness. SUBJECTIVE: Patient still feels weak and also complaining of dizziness, feels nausea, but no vomiting or diarrhea. No chest pain, shortness of breath, palpitation. Patient also complaining of back pain, in the rib area and pain in the thoracic area of the back. PHYSICAL EXAMINATION: VITAL SIGNS: Blood pressure 133/84, respirations 20, pulse 68, temperature 98.6. HEENT: Head is normocephalic. Eyes: Pupils normal. Conjunctivae slightly pale. NECK: JVP low. Carotid equal. THORAX: AP diameter normal. LUNGS: Clear. CARDIOVASCULAR: S1, S2. ABDOMEN: Soft, nontender. No organomegaly. Bowel sounds normal. Patient had tenderness on the on the back. EXTREMITIES: No edema, no clubbing, no cyanosis. LABORATORY DATA: WBC 8.7, hemoglobin 10.2, hematocrit 31.2 and platelet 299. Sodium 142, potassium 4.2, BUN 33, creatinine 2.6, BUN on admission was 51 and creatinine on admission was 3, glucose 126, calcium, phosphorus, magnesium normal. AST and ALT normal. Total protein and albumin normal. DIAGNOSES: Acute kidney [id number] renal insufficiency, dizziness, abdominal pain, diarrhea, coronary artery disease, history of stents in the past. Stress test, 06/15/2016, showed ejection fraction 48%, no ischemia. Echo on 05/06/2017 showed ejection fraction around 50%, trace aortic regurgitation, mild aortic stenosis, [id number] mitral regurgitation, mild tricuspid regurgitation. Diabetes, hypertension, hyperlipidemia, anemia and back pain. PLAN: We will check orthostatic blood pressures for dizziness. We will ask Dr. Jose Thao consult for back pain. Patient getting meclizine 25 q.8 hours, Aricept 10 mg p.o. at bedtime, aspirin 81 daily, ferrous sulfate 324 b.i.d., glipizide 10 mg daily, chlorthalidone 25 mg daily, iron sucrose 100 mg IV daily, Lipitor 10 mg daily, metoprolol 25 b.i.d., Namenda 10 mg daily, Bystolic 5 mg daily, but not at hospital pharmacy, Neurontin 300 mg daily, amlodipine 5 daily, Plavix 75 daily, Protonix 40 daily, Requip 0.25 daily, Rocaltrol , sodium bicarbonate 650 mg p.o. b.i.d., Zetia 10 daily. We will continue present therapy. Anyi Herrera MD
--- NOTE | 2017-05-22 06:22 | CP.PCM.PN ---
Subjective - Date & Time of Evaluation Date of Evaluation: 05/22/17 Time of Evaluation: 06:19 - Subjective Subjective: S: Earlier patient was seen. He complained of pain in left antecubital area at site of IV infiltrate. Has no other complaints. Pertinent medical record was reviewed. O: Last Vital Signs 3 Temp 98.6 F 05/21/17 07:30 Pulse 61 05/21/17 16:25 Resp 20 05/21/17 16:25 BP 133/84 05/21/17 07:30 Pulse Ox 98 05/21/17 16:25 Not in distress. LUNG:Normal breathing pattern. EXT: Left antecubital area has slight erythema and minimal swelling. good radial pulse present. A: IV infiltrate. Left arm pain. P: Tylenol 650 mg PO x 1. Objective - Vital Signs/Intake and Output Vital Signs (last 24 hours): Temp Pulse Resp BP Pulse Ox 98.6 F 61 20 133/84 98 05/21/17 07:30 05/21/17 16:25 05/21/17 16:25 05/21/17 07:30 05/21/17 16:25 Intake and Output: 05/21/17 05/22/17 18:59 06:59 Intake Total 540 180 Balance 540 180 - Medications Medications: Current Medications Amlodipine Besylate (Norvasc) 5 mg PO DAILY [facility] Last Admin: 05/21/17 10:40 Dose: 5 mg Aspirin (Ecotrin) 81 mg PO DAILY [facility] Last Admin: 05/21/17 10:40 Dose: 81 mg Atorvastatin Calcium (Lipitor) 40 mg PO DAILY [facility] Last Admin: 05/18/17 09:35 Dose: 40 mg Calcitriol (Rocaltrol) 0.25 mcg PO TH [facility] Last Admin: 05/20/17 10:30 Dose: 0.25 mcg Chlorthalidone (Hygroton) 25 mg PO DAILY [facility] Last Admin: 05/18/17 09:35 Dose: 25 mg Clopidogrel Bisulfate (Plavix) 75 mg PO DAILY [facility] Last Admin: 05/21/17 10:40 Dose: 75 mg Docusate Sodium (Colace) 100 mg PO BID [facility] Last Admin: 05/21/17 18:35 Dose: 100 mg Donepezil HCl (Aricept) 10 mg PO HS [facility] Last Admin: 05/21/17 21:30 Dose: 10 mg Ezetimibe (Zetia) 10 mg PO DAILY [facility] Last Admin: 05/21/17 10:40 Dose: 10 mg Ferrous Sulfate (Feosol) 324 mg PO BID [facility] Last Admin: 05/21/17 18:20 Dose: 324 mg Gabapentin (Neurontin) 300 mg PO DAILY [facility] PRN Reason: Protocol Last Admin: 05/21/17 10:40 Dose: 300 mg Glipizide (Glucotrol Xl) 10 mg PO DAILY [facility] Last Admin: 05/21/17 10:40 Dose: 10 mg Iron Sucrose 100 mg/ Sodium (Chloride) 105 mls @ 210 mls/hr IVPB DAILY [facility] Stop: 05/25/17 10:29 Last Admin: 05/21/17 10:39 Dose: 210 mls/hr Insulin Human Regular (Humulin R Low) 0 units SC ACHS [facility] PRN Reason: Protocol Last Admin: 05/21/17 21:07 Dose: Not Given Lidocaine (Lidoderm) 1 ea TD DAILY [facility] Last Admin: 05/21/17 10:39 Dose: 1 ea Meclizine HCl (Antivert) 25 mg PO Q8 [facility] Last Admin: 05/21/17 21:30 Dose: 25 mg Memantine (Namenda) 10 mg PO DAILY [facility] Last Admin: 05/21/17 10:40 Dose: 10 mg Metoprolol Tartrate (Lopressor) 25 mg PO BID [facility] Last Admin: 05/21/17 18:20 Dose: 25 mg Non-Formulary Medication (Nebivolol [Bystolic]) 5 mg PO DAILY [facility] Last Admin: 05/20/17 10:25 Dose: Not Given Ondansetron HCl (Zofran Inj) 4 mg IVP Q6 PRN PRN Reason: Nausea/Vomiting Last Admin: 05/18/17 14:07 Dose: 4 mg Pantoprazole Sodium (Protonix Ec Tab) 40 mg PO DAILY [facility] Last Admin: 05/21/17 10:39 Dose: 40 mg Ropinirole HCl (Requip) 0.25 mg PO DAILY [facility] Last Admin: 05/21/17 10:40 Dose: 0.25 mg Sodium Bicarbonate (Sodium Bicarbonate Tab) 650 mg PO BID [facility] Last Admin: 05/21/17 18:20 Dose: 650 mg - Labs Labs: 05/20/17 08:40 05/20/17 08:40 PT 11.2 SECONDS (9.4-12.5) 05/17/17 12:50 INR 0.98 (0.93-1.08) 05/17/17 12:50 APTT 29.3 Seconds (25.1-36.5) 05/17/17 12:50
[2017-05-22] MEDS: Insulin Reg-LOW-Coverage SC SCH ×4 (08:04→22:40)
[2017-05-22] MEDS: Pantoprazole 40 mg EC Tab PO SCH (09:11)
[2017-05-22] MEDS: GlipiZIDE 10 mg SR Tab PO SCH (09:11)
[2017-05-22] MEDS: Lidocaine 5% Patch TD SCH (09:12)
[2017-05-22] MEDS: Non Formulary Medication (Nebivolol [Bystolic] 5 MG) PO SCH (10:00)
--- NOTE | 2017-05-22 22:25 | PN ---
DATE: SUBJECTIVE: The patient is a 62-year-old male. The patient is seen and examined at the bedside, looking comfortable. No nausea, vomiting or diarrhea. No hematuria or hematochezia. No swelling of the legs. No chest pain or palpitation. Feeling very fatigued and tired. No coughing. No fever. No chills. PHYSICAL EXAMINATION: VITAL SIGNS: Temperature 98.6, pulse 75, blood pressure 123/81, respiratory rate 20. HEENT: Head: Normocephalic, atraumatic. Eyes: PERRLA. Extraocular movements are intact. Conjunctivae clear. Nose: Patent. Mucous membranes are moist. NECK: Supple. No carotid bruit. No JVD or thyromegaly. CHEST: Bilaterally symmetrical. HEART: S1 and S2 positive. LUNGS: Clear to auscultation. ABDOMEN: Soft. Bowel sounds present. No organomegaly. EXTREMITIES: No edema. No cyanosis. NEUROLOGIC: The patient is awake and alert. Moving all 4 extremities, with no focal deficit. MEDICATIONS: Antivert, Aricept, Colace, Ecotrin, iron, Glucotrol, insulin, chlorthalidone, Lidoderm, Lipitor, Lopressor, Namenda, Neurontin, Plavix, Protonix, ReQuip. LABORATORY DATA: White blood cells 8.2, hemoglobin 10.2, hematocrit 31.2, platelets 299. Glucose 137, 200. ASSESSMENT AND PLAN: Mr. Anyi Herrera is a 62-year-old male with acute kidney injury, on chronic renal insufficiency, dizziness, abdominal pain, diarrhea, coronary artery disease status post cardiac stenting, diabetes mellitus, hypertension, hypercholesterolemia. We will check orthostatic. Seen by neurologist and ENT. Appreciated GI and ID input. Dizziness is improving. History of gastroparesis. Diet as tolerated, on steroid. The patient is aware of that eating small meals and chew food very well, on Protonix. Monitoring hemoglobin and hematocrit, and overt GI bleeding. Iron supplements given. On Plavix, Zofran; started Colace. Continue present treatment. Repeat labs. GI and deep venous thrombosis prophylaxis. Gill Hoffman MD [facility] # [id number]
--- NOTE | 2017-05-23 04:28 | PROCN ---
DATE: 05/22/2017 PROCEDURE NOTE He is in room 561 with right chest pain, in the right intercostal vertebral region of about the 7th rib with a negative x-ray of a rib series on the right side. We went in and injected a trigger point which is around the costovertebral region of the 7th rib posteriorly. We infiltrated with Depo-Medrol and Marcaine around the 7th/8th ribs and avoided the neurovascular structures just below the rib. Once I put the bolus of medication there, we massaged the back to spread that medicine around to help it decrease trigger point pain by infiltrating the medicine in a broader area with massaging. Hopefully this will help his trigger point pain from a vertebrocostal junction and we will see how he does in a couple of days. But the rib x-rays were negative for fractures or arthritis. Raymond Thao DO
[2017-05-23] MEDS: Insulin Reg-LOW-Coverage SC SCH ×4 (08:15→22:29)
[2017-05-23] MEDS: Pantoprazole 40 mg EC Tab PO SCH (09:16)
[2017-05-23] MEDS: Lidocaine 5% Patch TD SCH (09:16)
[2017-05-23] MEDS: GlipiZIDE 10 mg SR Tab PO SCH ×2 (09:18→17:17)
[2017-05-23] MEDS: Enoxaparin 30 mg Syringe SC SCH (09:21)
[2017-05-23] MEDS: Non Formulary Medication (Nebivolol [Bystolic] 5 MG) PO SCH (09:21)
[2017-05-23 17:25] VITALS: RESP 20
[2017-05-24 06:50] LABS: MEAN CELL VOLUME 85.2 fl (80.0-105.0); MEAN CORPUSCULAR HEMOGLOBIN 27.4 pg (25.0-35.0); MEAN CORPUSCULAR HGB CONC 32.2 g/dl (31.0-37.0); MEAN PLATELET VOLUME 10.4 fl (7.0-11.0); RBC 3.65 10^6/uL (3.5-6.1); RED CELL DISTRIBUTION WIDTH 18.1 % (11.5-14.5); WHITE BLOOD COUNT 10.7 10^3/ul (4.5-11.0)
[2017-05-24 07:17] LABS: CALCIUM 9.8 mg/dL (8.4-10.5)
[2017-05-24] MEDS: Insulin Reg-LOW-Coverage SC SCH ×4 (07:48→17:36)
--- NOTE | 2017-05-24 09:14 | CON ---
DATE: 05/21/2017 LOCATION: Room 561, bed 1. HISTORY OF PRESENT ILLNESS: The patient came into the hospital at approximately with multiple medical issues, where he has pain in his lower right rib cage and was present with twisting his back. He has no history of trauma. Pain has been there for about 2-3 weeks. I could palpate the ribs because he is skinny and the lower rib cage is where the pain and tenderness is, near the costovertebral area, mostly in the T10-11 area. I am going to order a rib series on the right to see if there is any occult fracture or any cyst. If everything is negative, I could inject him with Depo-Medrol and Marcaine for some symptomatic relief and I will start physical therapy for low back exercises and deep breathing exercises and I feel as though it is probably a deep intercostal muscle sprain because there does not appear to be any crepitus if there was a rib fracture. he needs to exercise the lungs, do deep breathing exercises and extension exercises of the back, and possibly get a dorsolumbar spine x-ray if the pain continues. I feel like it is an intercostal muscle sprain of the right lower rib cage and we will get x-ray of the back for further evaluation of the right rib cage pain. Raymond Thao DO JEMIMA
[2017-05-24] MEDS: GlipiZIDE 10 mg SR Tab PO SCH (09:43)
[2017-05-24] MEDS: Pantoprazole 40 mg EC Tab PO SCH (09:44)
[2017-05-24] MEDS: Enoxaparin 30 mg Syringe SC SCH (09:47)
[2017-05-24] MEDS: Non Formulary Medication (Nebivolol [Bystolic] 5 MG) PO SCH (09:50)
[2017-05-24] MEDS: Lidocaine 5% Patch TD SCH (09:53)
--- NOTE | 2017-05-24 10:37 | PN ---
DATE: 05/23/2017 SUBJECTIVE: Patient is a 62-year-old male. Patient is seen and examined at the bedside, looking comfortable, still a little bit fatigued and tired. No nausea, vomiting, or diarrhea. Tolerating food very well. No nauseousness. No headache. No fever. No chills. No hematuria, no hematochezia. Getting physical therapy, waiting for insurance approval for [facility]. PHYSICAL EXAMINATION: VITAL SIGNS: Temperature 99.0, pulse 72, blood pressure 133/88, and respiratory rate 19. HEENT: Head: Normocephalic, atraumatic. Eyes: PERRLA. Extraocular muscles intact. Conjunctivae clear. Nose: Patent. Mucous membranes are moist. NECK: Supple. No carotid bruit. No JVD or thyromegaly. CHEST: Bilaterally symmetrical. HEART: S1 and S2 positive. LUNGS: Clear to auscultation. ABDOMEN: Soft. Bowel sounds present. No organomegaly. EXTREMITIES: No edema. No cyanosis. NEUROLOGIC: Patient is awake and alert. Moving all four extremities. No focal deficit. MEDICATIONS: Antivert, Aricept, Colace, Ecotrin, iron, Glucotrol, insulin, chlorthalidone, Lidoderm, Requip, calcitriol, Zetia, Zofran, sodium bicarbonate. LABORATORY DATA: We do not have recent labs today, but I reviewed old labs. Glucoses are 222, 275, 140, 283, 309, 134. ASSESSMENT AND PLAN: Mr. Anyi Herrera is a 62-year-old male with multiple medical problems, history of insulin-dependent diabetes mellitus, legally blind, retinitis pigmentosa with acute kidney injury, on chronic renal insufficiency, dizziness, history of diarrhea, coronary artery disease status post cardiac stenting, hypertension, hypercholesterolemia. Waiting for the rehab. Peripheral neuropathy. Seen by Dr. Thao, Olivia Arana, Dr. Papo Jensen, ENT. Gastrointestinal and deep venous thrombosis prophylaxis. Repeat labs. We will follow. Gill Hoffman MD
--- NOTE | 2017-05-24 12:35 | CP.PCM.PN ---
Subjective - Date & Time of Evaluation Date of Evaluation: 05/22/17 Time of Evaluation: 10:45 - Subjective Subjective: Comfortable in bed, no fevers, not in distress. Objective - Vital Signs/Intake and Output Vital Signs (last 24 hours): Temp Pulse Resp BP Pulse Ox 98.6 F 75 20 126/81 98 05/22/17 07:00 05/22/17 07:00 05/22/17 07:00 05/22/17 09:12 05/22/17 07:00 Intake and Output: 05/22/17 05/22/17 06:59 18:59 Intake Total 180 Balance 180 - Medications Medications: Current Medications Amlodipine Besylate (Norvasc) 5 mg PO DAILY [facility] Last Admin: 05/22/17 09:11 Dose: 5 mg Aspirin (Ecotrin) 81 mg PO DAILY [facility] Last Admin: 05/22/17 09:11 Dose: 81 mg Atorvastatin Calcium (Lipitor) 40 mg PO DAILY [facility] Last Admin: 05/18/17 09:35 Dose: 40 mg Calcitriol (Rocaltrol) 0.25 mcg PO TH [facility] Last Admin: 05/20/17 10:30 Dose: 0.25 mcg Chlorthalidone (Hygroton) 25 mg PO DAILY [facility] Last Admin: 05/18/17 09:35 Dose: 25 mg Clopidogrel Bisulfate (Plavix) 75 mg PO DAILY [facility] Last Admin: 05/22/17 09:11 Dose: 75 mg Docusate Sodium (Colace) 100 mg PO BID [facility] Last Admin: 05/22/17 09:11 Dose: 100 mg Donepezil HCl (Aricept) 10 mg PO HS [facility] Last Admin: 05/21/17 21:30 Dose: 10 mg Ezetimibe (Zetia) 10 mg PO DAILY [facility] Last Admin: 05/22/17 09:11 Dose: 10 mg Ferrous Sulfate (Feosol) 324 mg PO BID [facility] Last Admin: 05/22/17 09:12 Dose: 324 mg Gabapentin (Neurontin) 300 mg PO DAILY [facility] PRN Reason: Protocol Last Admin: 05/22/17 09:11 Dose: 300 mg Glipizide (Glucotrol Xl) 10 mg PO DAILY [facility] Last Admin: 05/22/17 09:11 Dose: 10 mg Iron Sucrose 100 mg/ Sodium (Chloride) 105 mls @ 210 mls/hr IVPB DAILY [facility] Stop: 05/25/17 10:29 Last Admin: 05/22/17 09:16 Dose: 210 mls/hr Insulin Human Regular (Humulin R Low) 0 units SC ACHS [facility] PRN Reason: Protocol Last Admin: 05/22/17 08:04 Dose: Not Given Lidocaine (Lidoderm) 1 ea TD DAILY [facility] Last Admin: 05/22/17 09:12 Dose: 1 ea Meclizine HCl (Antivert) 25 mg PO Q8 [facility] Last Admin: 05/22/17 06:34 Dose: 25 mg Memantine (Namenda) 10 mg PO DAILY [facility] Last Admin: 05/22/17 09:11 Dose: 10 mg Metoprolol Tartrate (Lopressor) 25 mg PO BID [facility] Last Admin: 05/22/17 09:12 Dose: 25 mg Non-Formulary Medication (Nebivolol [Bystolic]) 5 mg PO DAILY [facility] Last Admin: 05/20/17 10:25 Dose: Not Given Ondansetron HCl (Zofran Inj) 4 mg IVP Q6 PRN PRN Reason: Nausea/Vomiting Last Admin: 05/18/17 14:07 Dose: 4 mg Pantoprazole Sodium (Protonix Ec Tab) 40 mg PO DAILY [facility] Last Admin: 05/22/17 09:11 Dose: 40 mg Ropinirole HCl (Requip) 0.25 mg PO DAILY [facility] Last Admin: 05/22/17 09:11 Dose: 0.25 mg Sodium Bicarbonate (Sodium Bicarbonate Tab) 650 mg PO BID [facility] Last Admin: 05/22/17 09:11 Dose: 650 mg - Labs Labs: 05/20/17 08:40 05/20/17 08:40 PT 11.2 SECONDS (9.4-12.5) 05/17/17 12:50 INR 0.98 (0.93-1.08) 05/17/17 12:50 APTT 29.3 Seconds (25.1-36.5) 05/17/17 12:50 - Constitutional Appears: Chronically Ill - Head Exam Head Exam: NORMAL INSPECTION - Respiratory Exam Respiratory Exam: Decreased Breath Sounds - Cardiovascular Exam Cardiovascular Exam: +S1, +S2 - GI/Abdominal Exam GI & Abdominal Exam: Soft. absent: Tenderness Assessment and Plan - Assessment and Plan (Free Text) Plan: Assessment S/P leukocytosis probable acute stress reaction in this patient with gastroparesis diarrhea R/O C. diff. asymptomatic bacteriuria DM HTN chronic anemia CKD CAD S/P PCI Plan WBC count has normalized in less than 24 hours - will continue to monitor the patient off antibiotics; does not have diarrhea anymore, blood cx are negative , patient has no urinary symptoms - repeat urine cx are negative as well without antibiotics will continue to monitor clinically
--- NOTE | 2017-05-24 13:42 | CP.PCM.PN ---
Subjective - Date & Time of Evaluation Date of Evaluation: 05/24/17 Time of Evaluation: 12:40 - Subjective Subjective: Patient seen and examined, still feeling dizzy, more with head movement. Denies inc hearing loss Review of Systems - EENT Eyes: As Per HPI Ears: As Per HPI Nose/Mouth/Throat: As Per HPI - Cardiovascular Cardiovascular: As Per HPI - Gastrointestinal Gastrointestinal: As Per HPI - Genitourinary Genitourinary: As Per HPI Objective - Vital Signs/Intake and Output Vital Signs (last 24 hours): Temp Pulse Resp BP Pulse Ox 98.9 F 72 20 149/83 96 05/24/17 07:41 05/24/17 07:41 05/24/17 07:41 05/24/17 09:45 05/24/17 07:41 Intake and Output: 05/24/17 05/24/17 06:59 18:59 Intake Total 600 Balance 600 - Medications Medications: Current Medications Amlodipine Besylate (Norvasc) 5 mg PO DAILY [facility] Last Admin: 05/24/17 09:45 Dose: 5 mg Aspirin (Ecotrin) 81 mg PO DAILY [facility] Last Admin: 05/24/17 09:47 Dose: 81 mg Atorvastatin Calcium (Lipitor) 40 mg PO DAILY [facility] Last Admin: 05/18/17 09:35 Dose: 40 mg Calcitriol (Rocaltrol) 0.25 mcg PO TH [facility] Last Admin: 05/20/17 10:30 Dose: 0.25 mcg Chlorthalidone (Hygroton) 25 mg PO DAILY [facility] Last Admin: 05/18/17 09:35 Dose: 25 mg Clopidogrel Bisulfate (Plavix) 75 mg PO DAILY [facility] Last Admin: 05/24/17 09:44 Dose: 75 mg Docusate Sodium (Colace) 100 mg PO BID [facility] Last Admin: 05/24/17 09:43 Dose: 100 mg Donepezil HCl (Aricept) 10 mg PO HS [facility] Last Admin: 05/23/17 21:21 Dose: 10 mg Ezetimibe (Zetia) 10 mg PO DAILY [facility] Last Admin: 05/24/17 09:51 Dose: 10 mg Enoxaparin Sodium (Lovenox) 30 mg SC DAILY [facility] PRN Reason: Protocol Last Admin: 05/24/17 09:47 Dose: 30 mg Ferrous Sulfate (Feosol) 324 mg PO BID [facility] Last Admin: 05/24/17 09:46 Dose: 324 mg Gabapentin (Neurontin) 300 mg PO DAILY [facility] PRN Reason: Protocol Last Admin: 05/24/17 09:48 Dose: Not Given Glipizide (Glucotrol Xl) 10 mg PO DAILY [facility] Last Admin: 05/24/17 09:43 Dose: 10 mg Iron Sucrose 100 mg/ Sodium (Chloride) 105 mls @ 210 mls/hr IVPB DAILY [facility] Stop: 05/25/17 10:29 Last Admin: 05/24/17 09:52 Dose: 210 mls/hr Insulin Human Regular (Humulin R Low) 0 units SC ACHS [facility] PRN Reason: Protocol Last Admin: 05/24/17 11:57 Dose: 3 units Lidocaine (Lidoderm) 1 ea TD DAILY [facility] Last Admin: 05/24/17 09:53 Dose: 1 ea Meclizine HCl (Antivert) 25 mg PO Q8 [facility] Last Admin: 05/24/17 05:27 Dose: 25 mg Memantine (Namenda) 10 mg PO DAILY [facility] Last Admin: 05/24/17 09:44 Dose: 10 mg Metoprolol Tartrate (Lopressor) 25 mg PO BID [facility] Last Admin: 05/24/17 09:44 Dose: 25 mg Non-Formulary Medication (Nebivolol [Bystolic]) 5 mg PO DAILY [facility] Last Admin: 05/24/17 09:50 Dose: Not Given Ondansetron HCl (Zofran Inj) 4 mg IVP Q6 PRN PRN Reason: Nausea/Vomiting Last Admin: 05/18/17 14:07 Dose: 4 mg Pantoprazole Sodium (Protonix Ec Tab) 40 mg PO DAILY [facility] Last Admin: 05/24/17 09:44 Dose: 40 mg Ropinirole HCl (Requip) 0.25 mg PO DAILY [facility] Last Admin: 05/24/17 09:53 Dose: 0.25 mg Sodium Bicarbonate (Sodium Bicarbonate Tab) 650 mg PO BID [facility] Last Admin: 05/24/17 09:43 Dose: 650 mg - Labs Labs: 05/24/17 06:20 05/24/17 06:20 PT 11.2 SECONDS (9.4-12.5) 05/17/17 12:50 INR 0.98 (0.93-1.08) 05/17/17 12:50 APTT 29.3 Seconds (25.1-36.5) 05/17/17 12:50 - Constitutional Appears: Well, Non-toxic, Toxic, No Acute Distress - Head Exam Head Exam: ATRAUMATIC, NORMAL INSPECTION, NORMOCEPHALIC - Eye Exam Eye Exam: EOMI, Normal appearance Pupil Exam: NORMAL ACCOMODATION, PERRL - ENT Exam ENT Exam: Mucous Membranes Moist, Normal Exam, Normal Oropharynx - Neck Exam Neck Exam: Full ROM - Neurological Exam Neurological Exam: Alert, Awake, CN II-XII Intact, Normal Gait, Oriented x3 Additional comments: Ninfa Hallpike positive to the right side, Tonia particle repositioning maneuver performed to right to left side. Pt had improvement. Assessment and Plan - Assessment and Plan (Free Text) Assessment: -Dizziness-multifactorial -Right Benign Positional vertigo Plan: Tonia performed. Pt tolerated the procedure well may need physical therapy if no improvment
--- NOTE | 2017-05-24 15:28 | PN ---
DATE: 05/24/2017 REASON FOR CONSULTATION AND FOLLOWUP: Coronary artery disease, hypertension, hyperlipidemia, history of NC, admitted with nausea, vomiting, diarrhea, abdominal pain and generalized weakness. SUBJECTIVE: Denies any chest pain, shortness of breath. Symptoms improving, but feels still generalized weakness. OBJECTIVE: GENERAL: Not in apparent distress. VITAL SIGNS: Temperature afebrile, heart rate 72, blood pressure 149/83. HEENT: PERRLA. Extraocular muscles intact. NECK: Supple. No carotid bruit, no thyromegaly. CHEST: Clear to auscultation. HEART: S1 and S2, regular. ABDOMEN: Soft. EXTREMITIES: Clubbing and cyanosis negative. LABORATORY DATA: Blood workup as follows: WBC 10.7, hemoglobin 10, hematocrit 31.1, and platelet count 249. Chemistry showed sodium 142, potassium 4, chloride 103, carbon dioxide 20, anion gap of 15. BUN 35, creatinine 3. IMPRESSION: Chronic renal insufficiency, baseline creatinine is , stage IV chronic kidney disease, anemia, coronary artery disease, status post myocardial infarction, status post stent, history of diabetes for long time, acute kidney injury, diabetic nephropathy. Last stress test dated 06/15/2016 shows fixed defect, no reversible ischemia, ejection fraction 50%. Last echo dated 05/06/2017 ejection fraction 50%, trace aortic regurgitation, mild aortic stenosis, [id number] mitral regurgitation and hyperlipidemia. RECOMMENDATIONS: Rehab, out of bed to chair, physical therapy. We will follow with you stable. Thank you Dr. Hoffman for providing us the opportunity in taking care of patient. Anyi Jacobo MD
--- NOTE | 2017-05-24 15:51 | CP.PCM.DIS ---
<PatRoseann Michelle - Last Filed: 05/24/17 15:44> Provider - Provider Date of Admission: 05/18/17 22:28 Attending physician: Gill Hoffman MD Primary care physician: Gill Hoffman MD Consults: Cardio - Dr. Donnell Aiken - Dr. Viramontes GI - Dr. Bloom Nephro - Dr. Rutherford Neuro - Dr. Jensen ENT - Dr. Gregory Time Spent in preparation of Discharge (in minutes): 45 Diagnosis - Discharge Diagnosis (1) Dizziness Status: Acute (2) Weakness Status: Acute (3) UTI (urinary tract infection) Status: Acute (4) Abnormal EKG Status: Acute (5) Anemia of renal disease Status: Chronic (6) Chronic kidney disease-mineral and bone disorder Status: Chronic Hospital Course - Lab Results Lab Results: Micro Results 05/22/17 12:02 Stool C. difficile Antigen & Toxin A,B (M - Final 05/21/17 08:44 Urine Urine Culture - Final No Growth (<1,000 CFU/ML) Most Recent Lab Values WBC 10.7 10^3/ul (4.5-11.0) D 05/24/17 06:20 RBC 3.65 10^6/uL (3.5-6.1) 05/24/17 06:20 Hgb 10.0 g/dL (14.0-18.0) L 05/24/17 06:20 Hct 31.1 % (42.0-52.0) L 05/24/17 06:20 MCV 85.2 fl (80.0-105.0) 05/24/17 06:20 MCH 27.4 pg (25.0-35.0) 05/24/17 06:20 MCHC 32.2 g/dl (31.0-37.0) 05/24/17 06:20 RDW 18.1 % (11.5-14.5) H 05/24/17 06:20 Plt Count 249 10^3/uL (120.0-450.0) 05/24/17 06:20 MPV 10.4 fl (7.0-11.0) 05/24/17 06:20 Gran % 61.7 % (50.0-68.0) 05/20/17 08:40 Lymph % (Auto) 26.1 % (22.0-35.0) 05/20/17 08:40 [place] % (Auto) 5.5 % (1.0-6.0) 05/20/17 08:40 Eos % (Auto) 6.5 % (1.5-5.0) H 05/20/17 08:40 Baso % (Auto) 0.2 % (0.0-3.0) 05/20/17 08:40 Gran # 5.33 (1.4-6.5) 05/20/17 08:40 Lymph # (Auto) 2.3 (1.2-3.4) 05/20/17 08:40 [place] # (Auto) 0.5 (0.1-0.6) 05/20/17 08:40 Eos # (Auto) 0.6 (0.0-0.7) 05/20/17 08:40 Baso # (Auto) 0.02 K/mm3 (0.0-2.0) 05/20/17 08:40 PT 11.2 SECONDS (9.4-12.5) 05/17/17 12:50 INR 0.98 (0.93-1.08) 05/17/17 12:50 APTT 29.3 Seconds (25.1-36.5) 05/17/17 12:50 Sodium 142 mmol/L (132-148) 05/24/17 06:20 Potassium 4.0 mmol/L (3.6-5.0) 05/24/17 06:20 Chloride 103 mmol/L (98-107) 05/24/17 06:20 Carbon Dioxide 29 mmol/L (21-33) 05/24/17 06:20 Anion Gap 15 (10-20) 05/24/17 06:20 BUN 35 mg/dL (7-21) H 05/24/17 06:20 Creatinine 3.0 mg/dl (0.8-1.5) H 05/24/17 06:20 Est GFR ( Amer) 05/24/17 06:20 Est GFR (Non-Af Amer) 05/24/17 06:20 POC Glucose (mg/dL) 297 mg/dL (65-110) H 05/24/17 11:34 Random Glucose 132 mg/dL (70-110) H 05/24/17 06:20 Hemoglobin A1c 6.3 % (4.2-6.5) 05/18/17 06:15 Calcium 9.8 mg/dL (8.4-10.5) 05/24/17 06:20 Phosphorus 3.9 mg/dL (2.5-4.5) 05/20/17 08:40 Magnesium 1.9 mg/dL (1.7-2.2) 05/20/17 08:40 Iron 38 ug/dL (45-180) L 05/18/17 06:15 TIBC 292 ug/dL (261-462) 05/18/17 06:15 % Saturation 13 % (20-55) L 05/18/17 06:15 Ferritin 83.0 ng/mL 05/18/17 06:15 Total Bilirubin 0.5 mg/dL (0.2-1.3) 05/20/17 08:40 AST 32 U/L (17-59) 05/20/17 08:40 ALT 31 U/L (7-56) 05/20/17 08:40 Alkaline Phosphatase 57 U/L (38-126) 05/20/17 08:40 Lactate Dehydrogenase 280 U/L (333-699) L 05/17/17 12:50 Total Creatine Kinase 40 U/L (35-230) 05/17/17 12:50 Troponin I 0.02 ng/mL 05/18/17 06:15 Total Protein 6.7 g/dL (5.8-8.3) 05/20/17 08:40 Albumin 3.8 g/dL (3.0-4.8) 05/20/17 08:40 Globulin 2.9 gm/dL 05/20/17 08:40 Albumin/Globulin Ratio 1.3 (1.1-1.8) 05/20/17 08:40 Triglycerides 111 mg/dL (35-160) 05/18/17 06:15 Cholesterol 82 mg/dL (130-200) L 05/18/17 06:15 LDL Cholesterol Direct 30 mg/dL (0-129) 05/18/17 06:15 HDL Cholesterol 29 mg/dL (29-60) 05/18/17 06:15 Amylase 165 U/L (35-125) H 05/17/17 12:50 Lipase 183 U/L (23-300) 05/17/17 12:50 Procalcitonin 0.18 NG/ML (0.19-0.49) L 05/18/17 07:30 TSH 3rd Generation 4.77 mIU/mL (0.46-4.68) H 05/18/17 06:15 Urine Color Yellow (YELLOW) 05/17/17 14:20 Urine Appearance Clear (CLEAR) 05/17/17 14:20 Urine pH 6.0 (4.7-8.0) 05/17/17 14:20 Ur Specific [place] 1.020 (1.005-1.035) 05/17/17 14:20 Urine Protein 100 mg/dL (<30 mg/dL) H 05/17/17 14:20 Urine Glucose (UA) Negative mg/dL (NEGATIVE) 05/17/17 14:20 Urine Ketones Negative mg/dL (NEGATIVE) 05/17/17 14:20 Urine Blood Trace-intact (NEGATIVE) H 05/17/17 14:20 Urine Nitrate Negative (NEGATIVE) 05/17/17 14:20 Urine Bilirubin Negative (NEGATIVE) 05/17/17 14:20 Urine Urobilinogen 0.2 E.U./dL (<1 E.U./dL) 05/17/17 14:20 Ur Leukocyte Esterase Negative [place]/uL (NEGATIVE) 05/17/17 14:20 Urine RBC 0 - 2 /hpf (0-2) 05/17/17 14:20 Urine WBC 0 - 2 /hpf (0-6) 05/17/17 14:20 Ur Epithelial Cells 0 - 2 /hpf (0-5) 05/17/17 14:20 Urine Bacteria Trace (NEG) 05/17/17 14:20 Influenza Typ A,B (EIA) Negative for flu a/b (NEGATIVE) 05/17/17 20:15 - Hospital Course Hospital Course: 62 yr male w/ history chronic DE with cardiac stents x 7, HTN, Hyperlipidemia, DM II, gastroparesis, anemia, L eye blindness, degenerative stenosis at C5- C6-C7, R kidney complex cysts/mass & Renal insufficiency. Pt was recently discharge [facility] (05/10) and is now readmitted (05/17) for diarrhea. Stool culture for c. diff NEGATIVE. Pt positive for UTI w. enterococcus faecalis. Abnormal electrolytes corrected. Anemia managed with IV venofer now changed to PO feosol. Chronic dizziness noted and Tonia maneuvers done for Right Benign Positional vertigo on 05/24. Neurologist and ENT recommends: vestibular therapy. Discharge to [facility] for deconditioning per neurologist. Reviewed: MRI brain = CT abd/pelvis = cardiomegaly & trace pericardial effusion noted, resolution of suspected R basilar patchy pneumonia CXR = WNL ECG = ABNORMAL, NSR, L axis deviation, mod voltage criteria for LVH, cannot rule out septal infarct - Date & Time of H&P Date of H&P: 05/24/17 Time of H&P: 11:30 Discharge Exam - Head Exam Head Exam: ATRAUMATIC, NORMAL INSPECTION, NORMOCEPHALIC - Eye Exam Eye Exam: EOMI, Normal appearance, PERRL Pupil Exam: NORMAL ACCOMODATION, PERRL - ENT Exam ENT Exam: Mucous Membranes Moist - Neck Exam Neck exam: Normal Inspection - Respiratory Exam Respiratory Exam: Clear to PA & Lateral, UNREMARKABLE - Cardiovascular Exam Cardiovascular Exam: +S1, +S2 - GI/Abdominal Exam GI & Abdominal Exam: Normal Bowel Sounds, Soft - Extremities Exam Extremities exam: normal capillary refill, normal inspection - Back Exam Back exam: FULL ROM, NORMAL INSPECTION - Neurological Exam Neurological exam: Alert, Oriented x3 - Psychiatric Exam Psychiatric exam: Normal Affect, Normal Mood - Skin Skin Exam: Dry, Intact, Normal Color, Warm Discharge Plan - Follow Up Plan Condition: FAIR Disposition: HOME/ ROUTINE Instructions: Vertigo (a Type of Dizziness), Urinary Tract Infections in Adults , Type 1 Diabetes, Acid Reflux (Gastroesophageal Reflux Disease) in Adults, Urinary Tract Infection in Men (DC), Weakness (GEN) Additional Instructions: PATIENT TO GO TO [facility] FOR REHAB Referrals: Gill Hoffman MD [Primary Care Provider] - <Gill Hoffman - Last Filed: 05/25/17 12:55> Provider - Provider Date of Admission: 05/17/17 17:42 Attending physician: Gill Hoffman MD Primary care physician: Gill Hoffman MD Hospital Course - Lab Results Lab Results: Micro Results 05/17/17 18:50 Blood-Venous Blood Culture - Final NO GROWTH AFTER 5 DAYS 05/17/17 18:50 Blood-Venous Gram Stain - Final TEST NOT PERFORMED 05/17/17 18:20 Blood-Venous Blood Culture - Final NO GROWTH AFTER 5 DAYS 05/17/17 18:20 Blood-Venous Gram Stain - Final TEST NOT PERFORMED 05/22/17 12:02 Stool C. difficile Antigen & Toxin A,B (M - Final 05/21/17 08:44 Urine Urine Culture - Final No Growth (<1,000 CFU/ML) 05/18/17 07:50 Urine Urine Culture - Final Enterococcus Faecalis Most Recent Lab Values WBC 10.7 10^3/ul (4.5-11.0) D 05/24/17 06:20 RBC 3.65 10^6/uL (3.5-6.1) 05/24/17 06:20 Hgb 10.0 g/dL (14.0-18.0) L 05/24/17 06:20 Hct 31.1 % (42.0-52.0) L 05/24/17 06:20 MCV 85.2 fl (80.0-105.0) 05/24/17 06:20 MCH 27.4 pg (25.0-35.0) 05/24/17 06:20 MCHC 32.2 g/dl (31.0-37.0) 05/24/17 06:20 RDW 18.1 % (11.5-14.5) H 05/24/17 06:20 Plt Count 249 10^3/uL (120.0-450.0) 05/24/17 06:20 MPV 10.4 fl (7.0-11.0) 05/24/17 06:20 Gran % 61.7 % (50.0-68.0) 05/20/17 08:40 Lymph % (Auto) 26.1 % (22.0-35.0) 05/20/17 08:40 [place] % (Auto) 5.5 % (1.0-6.0) 05/20/17 08:40 Eos % (Auto) 6.5 % (1.5-5.0) H 05/20/17 08:40 Baso % (Auto) 0.2 % (0.0-3.0) 05/20/17 08:40 Gran # 5.33 (1.4-6.5) 05/20/17 08:40 Lymph # (Auto) 2.3 (1.2-3.4) 05/20/17 08:40 [place] # (Auto) 0.5 (0.1-0.6) 05/20/17 08:40 Eos # (Auto) 0.6 (0.0-0.7) 05/20/17 08:40 Baso # (Auto) 0.02 K/mm3 (0.0-2.0) 05/20/17 08:40 PT 11.2 SECONDS (9.4-12.5) 05/17/17 12:50 INR 0.98 (0.93-1.08) 05/17/17 12:50 APTT 29.3 Seconds (25.1-36.5) 05/17/17 12:50 Sodium 142 mmol/L (132-148) 05/24/17 06:20 Potassium 4.0 mmol/L (3.6-5.0) 05/24/17 06:20 Chloride 103 mmol/L (98-107) 05/24/17 06:20 Carbon Dioxide 29 mmol/L (21-33) 05/24/17 06:20 Anion Gap 15 (10-20) 05/24/17 06:20 BUN 35 mg/dL (7-21) H 05/24/17 06:20 Creatinine 3.0 mg/dl (0.8-1.5) H 05/24/17 06:20 Est GFR ( Amer) 26 05/24/17 06:20 Est GFR (Non-Af Amer) 05/24/17 06:20 POC Glucose (mg/dL) 86 mg/dL (65-110) 05/24/17 16:18 Random Glucose 132 mg/dL (70-110) H 05/24/17 06:20 Hemoglobin A1c 6.3 % (4.2-6.5) 05/18/17 06:15 Calcium 9.8 mg/dL (8.4-10.5) 05/24/17 06:20 Phosphorus 3.9 mg/dL (2.5-4.5) 05/20/17 08:40 Magnesium 1.9 mg/dL (1.7-2.2) 05/20/17 08:40 Iron 38 ug/dL (45-180) L 05/18/17 06:15 TIBC 292 ug/dL (261-462) 05/18/17 06:15 % Saturation 13 % (20-55) L 05/18/17 06:15 Ferritin 83.0 ng/mL 05/18/17 06:15 Total Bilirubin 0.5 mg/dL (0.2-1.3) 05/20/17 08:40 AST 32 U/L (17-59) 05/20/17 08:40 ALT 31 U/L (7-56) 05/20/17 08:40 Alkaline Phosphatase 57 U/L (38-126) 05/20/17 08:40 Lactate Dehydrogenase 280 U/L (333-699) L 05/17/17 12:50 Total Creatine Kinase 40 U/L (35-230) 05/17/17 12:50 Troponin I 0.02 ng/mL 05/18/17 06:15 Total Protein 6.7 g/dL (5.8-8.3) 05/20/17 08:40 Albumin 3.8 g/dL (3.0-4.8) 05/20/17 08:40 Globulin 2.9 gm/dL 05/20/17 08:40 Albumin/Globulin Ratio 1.3 (1.1-1.8) 05/20/17 08:40 Triglycerides 111 mg/dL (35-160) 05/18/17 06:15 Cholesterol 82 mg/dL (130-200) L 05/18/17 06:15 LDL Cholesterol Direct 30 mg/dL (0-129) 05/18/17 06:15 HDL Cholesterol 29 mg/dL (29-60) 05/18/17 06:15 Amylase 165 U/L (35-125) H 05/17/17 12:50 Lipase 183 U/L (23-300) 05/17/17 12:50 Procalcitonin 0.18 NG/ML (0.19-0.49) L 05/18/17 07:30 TSH 3rd Generation 4.77 mIU/mL (0.46-4.68) H 05/18/17 06:15 Urine Color Yellow (YELLOW) 05/17/17 14:20 Urine Appearance Clear (CLEAR) 05/17/17 14:20 Urine pH 6.0 (4.7-8.0) 05/17/17 14:20 Ur Specific [place] 1.020 (1.005-1.035) 05/17/17 14:20 Urine Protein 100 mg/dL (<30 mg/dL) H 05/17/17 14:20 Urine Glucose (UA) Negative mg/dL (NEGATIVE) 05/17/17 14:20 Urine Ketones Negative mg/dL (NEGATIVE) 05/17/17 14:20 Urine Blood Trace-intact (NEGATIVE) H 05/17/17 14:20 Urine Nitrate Negative (NEGATIVE) 05/17/17 14:20 Urine Bilirubin Negative (NEGATIVE) 05/17/17 14:20 Urine Urobilinogen 0.2 E.U./dL (<1 E.U./dL) 05/17/17 14:20 Ur Leukocyte Esterase Negative [place]/uL (NEGATIVE) 05/17/17 14:20 Urine RBC 0 - 2 /hpf (0-2) 05/17/17 14:20 Urine WBC 0 - 2 /hpf (0-6) 05/17/17 14:20 Ur Epithelial Cells 0 - 2 /hpf (0-5) 05/17/17 14:20 Urine Bacteria Trace (NEG) 05/17/17 14:20 Influenza Typ A,B (EIA) Negative for flu a/b (NEGATIVE) 05/17/17 20:15 - Hospital Course Hospital Course: pt is seen and examined at bed side , looking comfortable , agreed all above , happy to leave . will cont. f/u
[2017-05-24 17:40] VITALS: BP 141/92
[2017-05-24 17:54] VITALS: PULSE 67; TEMP 98.2; O2SAT 97
--- NOTE | 2017-05-24 18:25 | CP.PCM.PN ---
Subjective - Date & Time of Evaluation Date of Evaluation: 05/24/17 Time of Evaluation: 11:00 - Subjective Subjective: Patient reports lethargy hasn't improved much; tolerating diet well; no breathing issues; Objective - Vital Signs/Intake and Output Vital Signs (last 24 hours): Temp Pulse Resp BP Pulse Ox 98.2 F 67 20 141/92 H 97 05/24/17 16:00 05/24/17 16:00 05/24/17 16:00 05/24/17 17:38 05/24/17 16:00 Intake and Output: 05/24/17 05/24/17 06:59 18:59 Intake Total 600 780 Balance 600 780 - Medications Medications: Current Medications Amlodipine Besylate (Norvasc) 5 mg PO DAILY [facility] Last Admin: 05/24/17 09:45 Dose: 5 mg Ascorbic Acid (Vitamin C 500 Mg Tab) 500 mg PO DAILY [facility] Aspirin (Ecotrin) 81 mg PO DAILY [facility] Last Admin: 05/24/17 09:47 Dose: 81 mg Atorvastatin Calcium (Lipitor) 40 mg PO DAILY [facility] Last Admin: 05/18/17 09:35 Dose: 40 mg Calcitriol (Rocaltrol) 0.25 mcg PO TH [facility] Last Admin: 05/20/17 10:30 Dose: 0.25 mcg Chlorthalidone (Hygroton) 25 mg PO DAILY [facility] Last Admin: 05/18/17 09:35 Dose: 25 mg Clopidogrel Bisulfate (Plavix) 75 mg PO DAILY [facility] Last Admin: 05/24/17 09:44 Dose: 75 mg Docusate Sodium (Colace) 100 mg PO BID [facility] Last Admin: 05/24/17 17:36 Dose: 100 mg Donepezil HCl (Aricept) 10 mg PO HS [facility] Last Admin: 05/23/17 21:21 Dose: 10 mg Ezetimibe (Zetia) 10 mg PO DAILY [facility] Last Admin: 05/24/17 09:51 Dose: 10 mg Enoxaparin Sodium (Lovenox) 30 mg SC DAILY [facility] PRN Reason: Protocol Last Admin: 05/24/17 09:47 Dose: 30 mg Ferrous Sulfate (Feosol) 324 mg PO BID [facility] Last Admin: 05/24/17 17:36 Dose: 324 mg Gabapentin (Neurontin) 300 mg PO DAILY [facility] PRN Reason: Protocol Last Admin: 05/24/17 09:48 Dose: Not Given Glipizide (Glucotrol Xl) 10 mg PO DAILY [facility] Last Admin: 05/24/17 09:43 Dose: 10 mg Insulin Human Regular (Humulin R Low) 0 units SC ACHS [facility] PRN Reason: Protocol Last Admin: 05/24/17 17:36 Dose: Not Given Lidocaine (Lidoderm) 1 ea TD DAILY [facility] Last Admin: 05/24/17 09:53 Dose: 1 ea Meclizine HCl (Antivert) 25 mg PO Q8 [facility] Last Admin: 05/24/17 13:45 Dose: 25 mg Memantine (Namenda) 10 mg PO DAILY [facility] Last Admin: 05/24/17 09:44 Dose: 10 mg Metoprolol Tartrate (Lopressor) 25 mg PO BID [facility] Last Admin: 05/24/17 17:38 Dose: 25 mg Non-Formulary Medication (Nebivolol [Bystolic]) 5 mg PO DAILY [facility] Last Admin: 05/24/17 09:50 Dose: Not Given Ondansetron HCl (Zofran Inj) 4 mg IVP Q6 PRN PRN Reason: Nausea/Vomiting Last Admin: 05/18/17 14:07 Dose: 4 mg Pantoprazole Sodium (Protonix Ec Tab) 40 mg PO DAILY [facility] Last Admin: 05/24/17 09:44 Dose: 40 mg Ropinirole HCl (Requip) 0.25 mg PO DAILY [facility] Last Admin: 05/24/17 09:53 Dose: 0.25 mg Sodium Bicarbonate (Sodium Bicarbonate Tab) 650 mg PO BID [facility] Last Admin: 05/24/17 17:36 Dose: 650 mg - Labs Labs: 05/24/17 06:20 05/24/17 06:20 PT 11.2 SECONDS (9.4-12.5) 05/17/17 12:50 INR 0.98 (0.93-1.08) 05/17/17 12:50 APTT 29.3 Seconds (25.1-36.5) 05/17/17 12:50 - Constitutional Appears: Non-toxic, No Acute Distress - Eye Exam Eye Exam: absent: Scleral icterus - ENT Exam ENT Exam: Mucous Membranes Moist - Respiratory Exam Respiratory Exam: Clear to Ausculation Bilateral. absent: Respiratory Distress - Cardiovascular Exam Cardiovascular Exam: RRR, +S1, +S2 - GI/Abdominal Exam GI & Abdominal Exam: Soft. absent: Distended, Tenderness - Extremities Exam Additional comments: no leg edema; - Neurological Exam Neurological Exam: Alert, Awake - Psychiatric Exam Psychiatric exam: Normal Mood. absent: Agitated - Skin Skin Exam: Warm. absent: Cyanosis Assessment and Plan (1) Anemia of renal disease Assessment & Plan: Hgb improved with IV iron loading; monitor; may need EPO as outpatient; Status: Chronic (2) Chronic kidney disease-mineral and bone disorder Assessment & Plan: Started on small dose of calcitriol 0.25 mcg weekly, continue; Status: Chronic (3) Hypertensive chronic kidney disease with stage 1 through stage 4 chronic kidney disease, or unspecified chronic kidney disease Assessment & Plan: BP relatively stable; continue current meds; Status: Acute (4) CKD (chronic kidney disease) stage 4, GFR 15-29 ml/min Assessment & Plan: Mild increase in serum creatinine; should monitor periodically and f/u with outpatient grubber; Status: Chronic
== END 2017-05-24 19:15 ==
LOC: ED 11:44 → ERH 17:42 → 5RNO 22:41 → INTOOBSV 05-18 22:28 → OBSVTOIN 05-18 22:28
PROVIDERS: ADMIT Internal Medicine; ATTEND Internal Medicine
DX: N17.9 Acute kidney failure, unspecified (principal); E11.22 Type 2 diabetes mellitus with diabetic chronic kidney disease; N18.4 Chronic kidney disease, stage 4 (severe); N39.0 Urinary tract infection, site not specified; K31.84 Gastroparesis; I12.9 Hypertensive chronic kidney disease with stage 1 through stage 4 chronic kidney disease, or unspecified chronic kidney disease; E78.00 Pure hypercholesterolemia, unspecified; E11.43 Type 2 diabetes mellitus with diabetic autonomic (poly)neuropathy; H53.8 Other visual disturbances; E11.65 Type 2 diabetes mellitus with hyperglycemia; I25.10 Atherosclerotic heart disease of native coronary artery without angina pectoris; I08.1 Rheumatic disorders of both mitral and tricuspid valves; G25.81 Restless legs syndrome; M89.9 Disorder of bone, unspecified; N25.81 Secondary hyperparathyroidism of renal origin; E03.9 Hypothyroidism, unspecified; E55.9 Vitamin D deficiency, unspecified; E78.5 Hyperlipidemia, unspecified; D63.1 Anemia in chronic kidney disease; H81.11 Benign paroxysmal vertigo, right ear; E11.21 Type 2 diabetes mellitus with diabetic nephropathy; E87.6 Hypokalemia; E11.42 Type 2 diabetes mellitus with diabetic polyneuropathy; H35.52 Pigmentary retinal dystrophy; H54.8 Legal blindness, as defined in USA; J44.9 Chronic obstructive pulmonary disease, unspecified; N40.0 Benign prostatic hyperplasia without lower urinary tract symptoms; S23.41XA Sprain of ribs, initial encounter; I25.2 Old myocardial infarction; Z95.5 Presence of coronary angioplasty implant and graft; Z87.01 Personal history of pneumonia (recurrent)
CPT/HCPCS: 20552; 36415; 70551; 71045; 71100; 74176; 80048; 80053; 80061; 81001; 82150; 82550; 82728; 82948; 83036; 83540; 83550; 83615; 83690; 83735; 84100; 84145; 84443; 84484; 85025; 85027; 85610; 85730; 87040; 87086; 87181; 87324; 87804; 93005; 96361; 96374; 97162; 97530; 99285; C9113; G0378; G8978; G8979; J1650; J1756; J2405; J7040; J7120; Q9966

== ENCOUNTER 2017-07-30 12:50 | Inpatient (IN) | payer MEDICARE ==
[2017-07-30 13:01] VITALS: BMI 22.6
[2017-07-30] MEDS ORDERED: Sodium Chloride 0.9% 1,000 ML IV STA ×2 (13:48→16:02)
[2017-07-30] MEDS ORDERED: Famotidine 20mg/50ml 20 MG/50 ML BAG IVPB STA (13:48)
[2017-07-30] MEDS ORDERED: Morphine 4 mg/ml ISec IVP STA (13:48)
--- NOTE | 2017-07-30 13:54 | ED PDOC ---
Arrival/HPI - General Chief Complaint: Abdominal Pain Time Seen by Provider: 07/30/17 13:32 Historian: Patient - History of Present Illness Narrative History of Present Illness (Text): 07/30/17 13:50 pt p/w + 3 months onset of severe epigastric/mid abd tenderness/severe dizziness /lightheadedness/weakness; pt states pain at most is 10/10; pt states the pain worsen over the last few days and pt had been evaluated by Dr Hoffman today (in the office) and was directed to come to ED for further eval; pt states no appetite, + night time subjective fever, + chills/sweats, + chest pain?, no sob/ palpitations, no urinary/bowel changes, pt denied nausea/vomiting pt states no LOC pt is here for further eval pt's without other complaints PCP: Dr Hoffman Time/Duration: > month (3months) Symptom Onset: Gradual Symptom Course: Worsening Quality: Tightness, Cramping Severity Level: 10, Severe Activities at Onset: Rest Context: Home Past Medical History - Provider Review Nursing Documentation Reviewed: Yes - Travel History Have you recently traveled outside [place] w/in the past 3 mons?: No - Past History Past History: No Previous - Infectious Disease Hx of Infectious Diseases: None - Cardiac Hx Cardiac Disorders: Yes Hx Hypertension: Yes - Pulmonary Hx Respiratory Disorders: Yes Hx Pneumonia: Yes - Neurological Hx Neurological Disorder: No Hx Alzheimer's Disease: No HX Cerebrovascular Accident: No Hx Dementia: No Hx Dizziness: No Hx Meningitis: No Hx Migraine: No Hx Parkinson's Disease: No Hx Seizures: No Hx Transient Ischemic Attacks (TIA): No - HEENT Hx HEENT Disorder: Yes Hx Cataracts: Yes Other/Comment: poor vision - Renal Hx Renal Disorder: Yes - Endocrine/Metabolic Hx Diabetes Mellitus Type 2: Yes - Hematological/Oncological Hx Blood Disorders: Yes Hx Anemia: Yes - Integumentary Hx Dermatological Disorder: No - Musculoskeletal/Rheumatological Hx Musculoskeletal Disorders: No - Gastrointestinal Hx Gastrointestinal Disorders: Yes Hx Gastroesophageal Reflux: Yes - Genitourinary/Gynecological Hx Genitourinary Disorders: No - Psychiatric Hx Substance Use: No - Surgical History Hx Coronary Stent: Yes (8) Hx Musculoskeletal Surgery: Yes (right femur pinning and plate insertion) - Anesthesia Hx Anesthesia Reactions: No Hx Malignant Hyperthermia: No - Suicidal Assessment Feels Threatened In Home Enviroment: No Family/Social History - Physician Review Nursing Documentation Reviewed: Yes Family/Social History: No Known Family HX Smoking Status: Never Smoked Hx Alcohol Use: No Hx Substance Use: No Hx Substance Use Treatment: No Allergies/Home Meds Allergies/Adverse Reactions: Allergies No Known Allergies Allergy (Verified 05/05/17 08:37) Home Medications: Home Meds Medication Instructions Recorded Confirmed Aspirin [Ecotrin] 81 mg PO DAILY 03/31/16 07/30/17 Clopidogrel [Plavix] 75 mg PO DAILY 03/31/16 07/30/17 Ezetimibe [Zetia] 10 mg PO DAILY 03/31/16 07/30/17 MetFORMIN [glucOPHAGE] 1,000 mg PO BID 03/31/16 07/30/17 Nebivolol [Bystolic] 5 mg PO DAILY 03/31/16 07/30/17 Simvastatin [Zocor] 80 mg PO DAILY 03/31/16 07/30/17 amLODIPine [Norvasc] 10 mg PO DAILY 03/31/16 07/30/17 Donepezil [Aricept] 10 mg PO DAILY 05/05/17 07/30/17 Gabapentin [Neurontin] 300 mg PO DAILY 05/05/17 07/30/17 rOPINIRole [Requip] 0.25 mg PO DAILY 05/05/17 07/30/17 Chlorthalidone [Hygroton] 25 mg PO TID 06/14/17 07/30/17 Famotidine [Pepcid] 20 mg PO DAILY 06/14/17 07/30/17 Memantine [Namenda] 10 mg PO DAILY 06/14/17 07/30/17 Famotidine [Pepcid] 20 mg PO DAILY 07/30/17 07/30/17 Ferrous Sulfate [Ferrous Sulfate] 325 mg PO BID 07/30/17 07/30/17 GlipiZIDE [Glucotrol] 5 mg PO DAILY 07/30/17 07/30/17 Sodium Bicarbonate Tab [Sodium 650 mg PO DAILY 07/30/17 07/30/17 Bicarbonate Tab] Review of Systems - Review of Systems Constitutional: Fatigue, Fevers, Night Sweats Eyes: Normal ENT: Normal Respiratory: Normal. absent: Cough Cardiovascular: Chest Pain Gastrointestinal: Abdominal Pain. absent: Stool Changes, Nausea, Vomiting Genitourinary Male: Normal Musculoskeletal: Normal Skin: Normal Neurological: Dizziness Endocrine: Diaphoresis Hemo/Lymphatic: Normal Psychiatric: Normal Physical Exam Vital Signs Reviewed: Yes Vital Signs Temp Pulse Resp BP Pulse Ox 07/30/17 12:53 98.7 F 62 16 108/58 L 96 Temperature: Afebrile Blood Pressure: Hypotensive Pulse: Regular Respiratory Rate: Normal Appearance: Positive for: Well-Appearing, Uncomfortable, Cachectic, Other ( resting in bed, alert/awake, GCS = 15, oriented x 3, uncomfortable/mild distress due to abd pain, cooperative, follows command with ease) Pain Distress: Mild Mental Status: Positive for: Alert and Oriented X 3 - Systems Exam Head: Present: Atraumatic, Normocephalic, Other (mild bi-temporal wasting) Pupils: Present: PERRL, Other (no nystagmus, no photophobia, sclera anicteric) Extroacular Muscles: Present: EOMI Conjunctiva: Present: Normal Ears: Present: Normal Mouth: Present: Other (poor dentitions, uvula/tongue are midline, moist oral mucosa, no drooling/stridor, no exudate/lesions, no dysphonia) Pharnyx: Present: Normal Nose (External): Present: Atraumatic Nose (Internal): Present: Normal Inspection Neck: Present: Normal Range of Motion, Trachea Midline. No: Meningeal Signs, MIDLINE TENDERNESS, Paraspinal Tenderness Respiratory/Chest: Present: Clear to Auscultation, Good Air Exchange, Other ( CTA b/l, no w/r/r, no tachypenia). No: Respiratory Distress, Accessory Muscle Use Cardiovascular: Present: Regular Rate and Rhythm, Normal S1, S2 Abdomen: Present: Tenderness, Normal Bowel Sounds, Other (well nourished male, + diffuse mid abd tenderness, mild camacho's noted, no mcburney's point tenderness, no masses/rebound/guarding/rigidity) Back: Present: Normal Inspection. No: CVA Tenderness, Midline Tenderness Upper Extremity: Present: Normal Inspection, Normal ROM, NORMAL PULSES, Neurovascularly Intact Lower Extremity: Present: Normal Inspection, NORMAL PULSES, Normal ROM, Neurovascularly Intact Neurological: Present: GCS=15, CN II-XII Intact, Speech Normal, Other (CNII-XII WNL, no facial asymmetries, no slurr speech, NIH stroke scale ~ 0) Skin: Present: Warm, Normal Color, Other (cap refill ~ 1sec, + dry, + pallor, no petechiae/rashes/lesions) Psychiatric: Present: Alert, Oriented x 3 Medical Decision Making ED Course and Treatment: 07/30/17 13:30 Impression: fever/weakness/dizziness/abd pain x 3 months i have consider all the differential diagnosis regarding pt's chief medical complaints/clinical findings, including but are not limited to: fever/weakness/ dizziness/abd pain x 3 months A/P: fever/weakness/dizziness/abd pain x 3 months - labs - xray - ct - cultures - ua - supportive care - observe/reevaluation Progress Notes: pt is feeling some improvement pt is awaiting lab results/ct results 07/30/17 15:[address] Hoffman, who is aware and agrees with ED plan to admit patient to the hospital for further monitor. Will consult per Dr Hoffman, and logging assistant Dr Rosales. 07/30/17 16:07 pt is made aware of his medical results agrees with admission Re-evaluation Time: 15:30 Reassessment Condition: Improving,but remains with symptoms - Critical Care Critical Care Minutes: 30 minutes Critical Care Time: Excluding Proc Time Narrative Critical Care (Text): 07/30/17 16:08 critical care time: 30min, excluding procedure time, excluding time teaching residents/students/mid-level providers; including initial eval/diagnosis, diagnostic interpretation, re-eval, consultations, final disposition - Lab Interpretations Lab Results: 07/30/17 13:58 07/30/17 13:58 Lab Results 07/30/17 15:04: Urine Color Yellow, Urine Appearance Clear, Urine pH 5.5, Ur Specific [place] >= 1.030, Urine Protein >=300 H, Urine Glucose (UA) Negative, Urine Ketones Trace H, Urine Blood Negative, Urine Nitrate Negative, Urine Bilirubin Negative, Urine Urobilinogen 0.2, Ur Leukocyte Esterase Negative, Urine RBC 1 - 3, Urine WBC 2 - 5, Ur Epithelial Cells 0 - 2, Amorphous Sediment Few, Urine Bacteria Mod, Coarse Granular Casts Trace H 07/30/17 13:58: Sodium 139, Chloride 103, Potassium 4.7, Carbon Dioxide 16 L, Anion Gap 25 H, BUN 60 H, Creatinine 3.7 H, Est GFR ( Amer) 20, Est GFR ( Non-Af Amer) 17, Random Glucose 200 H, Calcium 9.8, Phosphorus 4.3, Magnesium 2.4 H, Total Bilirubin 0.3, AST 36, ALT 33, Alkaline Phosphatase 74, Troponin I 0.01 D, NT-Pro-B Natriuret Pep 507 H, Total Protein 7.4, Albumin 4.7, Globulin 2.7, Albumin/Globulin Ratio 1.7, Lipase 603 H 07/30/17 13:58: pO2 44, VBG pH 7.23 L, VBG pCO2 46.0, VBG HCO3 19.3 L, VBG Total CO2 20.7 L, VBG O2 Sat (Calc) 78.9 H, VBG Base Excess -8.2 L, VBG Potassium 5.0, Sodium 136.0, Chloride 102.0, Glucose 221 H, Lactate 5.2 H*, FiO2 21.0, Venous Blood Potassium 5.0 07/30/17 13:58: PT 9.9, INR 0.87 L, APTT 32.1 07/30/17 13:58: WBC 11.3 H, RBC 4.16, Hgb 12.3 L D, Hct 36.3 L, MCV 87.3, MCH 29.6, MCHC 33.9, RDW 17.2 H, Plt Count 253, MPV 10.2, Gran % 67.3, Lymph % (Auto ) 23.2, [place] % (Auto) 7.8 H, Eos % (Auto) 1.5, Baso % (Auto) 0.2, Gran # 7.57 H , Lymph # (Auto) 2.6, [place] # (Auto) 0.9 H, Eos # (Auto) 0.2, Baso # (Auto) 0.02 I have reviewed the lab results: Yes Interpretation: Abnormal lab values (elevated WBCs, lactic acid, bun/creat, lipase) - RAD Interpretation Narrative RAD Interpretations (Text): 07/30/17 15:01 Chest X-ray reviewed by radiologist, shows: FINDINGS: LUNGS: No active pulmonary disease. PLEURA: No significant pleural effusion identified, no pneumothorax apparent. CARDIOVASCULAR: No radiographic findings to suggest acute or significant cardiovascular disease. OSSEOUS STRUCTURES: No significant abnormalities. VISUALIZED UPPER ABDOMEN: Normal. OTHER FINDINGS: None. IMPRESSION: No active disease. No significant interval change compared to the prior examination(s). 07/30/17 15:23 CT of Abdomen/Pelvis reviewed by radiologist, shows: FINDINGS: LOWER THORAX: Unremarkable. LIVER: Unremarkable. No gross lesion or ductal dilatation. GALLBLADDER AND BILE DUCTS: Unremarkable. PANCREAS: Unremarkable. No gross lesion or ductal dilatation. SPLEEN: Unremarkable. ADRENALS: Unremarkable. No mass. KIDNEYS AND URETERS: Unremarkable. No hydronephrosis. No solid mass. VASCULATURE: Unremarkable. No aortic aneurysm. BOWEL: Fluid filled and dilated loops of small bowel identified consistent with enteritis without mechanical obstructing lesion. APPENDIX: Unremarkable. Normal appendix. PERITONEUM: Unremarkable. No free fluid. No free air. LYMPH NODES: Unremarkable. No enlarged lymph nodes. BLADDER: Unremarkable. REPRODUCTIVE: Unremarkable. BONES: No acute fracture. OTHER FINDINGS: Stable left lateral wall lipoma. IMPRESSION: Distended fluid-filled loops of bowel consistent with enteritis without mechanical obstructing lesion. Additional benign and/or incidental findings described above. Limitations of the current examination: Absence of oral and intravenous contrast in this clinical setting 07/30/17 16:09 Radiology Orders: 07/30/17 13:47 CHEST PORTABLE [RAD] Stat 07/30/17 13:50 ABD & PELVIS W/O PO OR IV CONT [CT] Stat Lead Enterprise Architect: ED Physician, Radiologist - EKG Interpretation EKG Interpretation (Text): 07/30/17 13:54 NSR at 65 bpm, LAD, no ectopy, non-specific st-t changes, voltage criteria LVH, T wave abnl V3-6, ABNL EKG; changes compare with old ekg 04/2017 Interpreted by ED Physician: Yes Type: 12 lead EKG Comparison: Different from prev. EKG - Medication Orders Current Medication Orders: Sodium Chloride (Sodium Chloride 0.9%) 1,000 mls @ 100 mls/hr IV .Q10H STA Stop: 07/31/17 02:01 Discontinued Medications Aspirin (Aspirin Chewable) 81 mg PO STAT STA Stop: 07/30/17 13:50 Last Admin: 07/30/17 13:50 Dose: Famotidine (Pepcid 20mg/50ml Premix) 20 mg in 50 mls @ 100 mls/hr IVPB STAT STA Stop: 07/30/17 14:17 Last Admin: 07/30/17 14:08 Dose: 100 mls/hr eMAR Start Stop Document 07/30/17 14:08 SRE (Rec: 07/30/17 14:08 SRE [id number]) Intravenous Solution Start Date 07/30/17 Start Time 14:08 End Date 07/30/17 End time 15:00 Total Infusion Time 52 Sodium Chloride (Sodium Chloride 0.9%) 1,000 mls @ 999 mls/hr IV .Q1H1M STA Stop: 07/30/17 14:48 Last Admin: 07/30/17 14:00 Dose: 999 mls/hr eMAR Start Stop Document 07/30/17 14:00 SRE (Rec: 07/30/17 14:10 SRE [id number]) Intravenous Solution Start Date 07/30/17 Start Time 14:09 End Date 07/30/17 End time 15:10 Total Infusion Time 61 Morphine Sulfate (Morphine) 4 mg IVP STAT STA Stop: 07/30/17 13:49 Last Admin: 07/30/17 14:00 Dose: 4 mg MAR Pain Assessment Document 07/30/17 14:00 SRE (Rec: 07/30/17 14:09 SRE [id number]) Pain Reassessment Is this a pain reassessment? Yes IVP Administration Document 07/30/17 14:00 SRE (Rec: 07/30/17 14:09 SRE [id number]) Charges for Administration # of IVP Administrations 1 Ondansetron HCl (Zofran Inj) 4 mg IVP STAT STA Stop: 07/30/17 13:50 Last Admin: 07/30/17 14:09 Dose: 4 mg IVP Administration Document 07/30/17 14:09 SRE (Rec: 07/30/17 14:09 SRE [id number]) Charges for Administration # of IVP Administrations 1 Disposition/Present on Arrival - Present on Arrival Any Indicators Present on Arrival: No History of DVT/PE: No History of Uncontrolled Diabetes: No Urinary Catheter: No History of Decub. Ulcer: No History Surgical Site Infection Following: None - Disposition Have Diagnosis and Disposition been Completed?: Yes Diagnosis: Chest pain with low risk for cardiac etiology, Dizziness, Weakness, Acute on chronic renal insufficiency, Acute pancreatitis, Enteritis, Intractable abdominal pain, At risk for sepsis, Dehydration Disposition: HOSPITALIZED Disposition Time: 15:30 Patient Plan: Admission, Telemetry Condition: STABLE Discharge Instructions (ExitCare): Chest Pain (ED), Weakness (ED) Print Language: GHANAIAN Forms: [employer] (Belgian)
[2017-07-30 14:06] LABS: VENOUS BLOOD GAS BASE EXCESS -8.2 mmol/L (0.0-2.0); VENOUS BLOOD GAS PO2 44 mm/Hg (30-55); VENOUS BLOOD PH 7.23 (7.32-7.43)
[2017-07-30 14:14] LABS: ALB/GLOB RATIO 1.7 (1.1-1.8); ALBUMIN 4.7 g/dL (3.0-4.8); BASO # 0.02 K/mm3 (0.0-2.0); BASO % 0.2 % (0.0-3.0); CALCIUM 9.8 mg/dL (8.4-10.5); EOS # 0.2 (0.0-0.7); EOS % 1.5 % (1.5-5.0); GRAN # 7.57 (1.4-6.5); GRAN % 67.3 % (50.0-68.0); HEMOGLOBIN 12.3 g/dL (14.0-18.0); LYMPH # 2.6 (1.2-3.4); LYMPH % 23.2 % (22.0-35.0); MEAN CELL VOLUME 87.3 fl (80.0-105.0); MEAN CORPUSCULAR HEMOGLOBIN 29.6 pg (25.0-35.0); MEAN CORPUSCULAR HGB CONC 33.9 g/dl (31.0-37.0); MEAN PLATELET VOLUME 10.2 fl (7.0-11.0); MONO # 0.9 (0.1-0.6); MONO % 7.8 % (1.0-6.0); RBC 4.16 10^6/uL (3.5-6.1); RED CELL DISTRIBUTION WIDTH 17.2 % (11.5-14.5); WHITE BLOOD COUNT 11.3 10^3/ul (4.5-11.0)
[2017-07-30 14:27] LABS: TROPONIN I 0.01 ng/mL
[2017-07-30 14:39] LABS: INR 0.87 (0.93-1.08); PARTIAL THROMBOPLASTIN TIME 32.1 Seconds (25.1-36.5); PROTHROMBIN TIME 9.9 SECONDS (9.4-12.5)
--- NOTE | 2017-07-30 14:57 | RAD ---
HISTORY: Sepsis Patient COMPARISON: 05/17/2017 FINDINGS: LUNGS: No active pulmonary disease. PLEURA: No significant pleural effusion identified, no pneumothorax apparent. CARDIOVASCULAR: No radiographic findings to suggest acute or significant cardiovascular disease. OSSEOUS STRUCTURES: No significant abnormalities. VISUALIZED UPPER ABDOMEN: Normal. OTHER FINDINGS: None. IMPRESSION: No active disease. No significant interval change compared to the prior examination(s).
--- NOTE | 2017-07-30 15:06 | CT ---
PROCEDURE: CT Abdomen and Pelvis without intravenous contrast HISTORY: Abdominal pain and vomiting COMPARISON: 05/17/2017 CT abdomen and pelvis TECHNIQUE: Unenhanced study. Neither oral nor intravenous contrast administered. Sensitivity and specificity for acute inflammatory processes limited by the absence of oral and intravenous contrast. Total exam DLP = 859013 mGy-cm. This CT exam was performed using one or more of the following dose reduction techniques: Automated exposure control, adjustment of the mA and/or kV according to patient size, and/or use of iterative reconstruction technique. FINDINGS: LOWER THORAX: Unremarkable. LIVER: Unremarkable. No gross lesion or ductal dilatation. GALLBLADDER AND BILE DUCTS: Unremarkable. PANCREAS: Unremarkable. No gross lesion or ductal dilatation. SPLEEN: Unremarkable. ADRENALS: Unremarkable. No mass. KIDNEYS AND URETERS: Unremarkable. No hydronephrosis. No solid mass. VASCULATURE: Unremarkable. No aortic aneurysm. BOWEL: Fluid filled and dilated loops of small bowel identified consistent with enteritis without mechanical obstructing lesion. APPENDIX: Unremarkable. Normal appendix. PERITONEUM: Unremarkable. No free fluid. No free air. LYMPH NODES: Unremarkable. No enlarged lymph nodes. BLADDER: Unremarkable. REPRODUCTIVE: Unremarkable. BONES: No acute fracture. OTHER FINDINGS: Stable left lateral wall lipoma. IMPRESSION: Distended fluid-filled loops of bowel consistent with enteritis without mechanical obstructing lesion. Additional benign and/or incidental findings described above. Limitations of the current examination: Absence of oral and intravenous contrast in this clinical setting
[2017-07-30 15:11] LABS: PH,URINE 5.5 (4.7-8.0); URINE BILIRUBIN NEGATIVE (NEGATIVE); URINE BLOOD NEGATIVE (NEGATIVE); URINE GLUCOSE (UA) NEGATIVE (NEGATIVE); URINE LEUKOCYTE ESTERASE NEGATIVE Leu/uL (NEGATIVE); URINE PROTEIN >=300 mg/dL (<30 mg/dL); URINE UROBILINOGEN 0.2 E.U./dL (<1 E.U./dL)
[2017-07-30 15:12] LABS: URINE APPEARANCE CLEAR (CLEAR); URINE COLOR YELLOW (YELLOW)
[2017-07-30 15:19] LABS: URINE BACTERIA MOD (NEG); URINE EPITHELIAL CELLS 0 - 2 /hpf (0-5)
[2017-07-30 15:20] LABS: URINE AMORPHOUS SEDIMENT FEW; URINE COARSE GRANULAR CAST TRACE /hpf (0-2)
[2017-07-30 17:11] LABS: VENOUS BLOOD GAS PO2 34 mm/Hg (30-55); VENOUS BLOOD PH 7.25 (7.32-7.43)
--- NOTE | 2017-07-30 18:48 | CARD ---
APPROVED REPORT EKG Measurement Heart [id number] <Conclusion> Poor data quality, interpretation may be adversely affected Normal sinus rhythm Voltage criteria for left ventricular hypertrophy T wave abnormality, consider lateral ischemia Abnormal ECG
[2017-07-31] MEDS: Non Formulary Medication (Nebivolol [Bystolic] 5 MG) PO SCH (09:15)
[2017-07-31] MEDS ORDERED: Sodium Chloride 0.9% 1,000 ML IV SCH (12:30)
[2017-07-31 13:06] LABS: BASO # 0.01 K/mm3 (0.0-2.0); BASO % 0.1 % (0.0-3.0); EOS # 0.2 (0.0-0.7); EOS % 2.2 % (1.5-5.0); GRAN # 4.72 (1.4-6.5); GRAN % 60.6 % (50.0-68.0); HEMOGLOBIN 11.4 g/dL (14.0-18.0); LYMPH # 2.3 (1.2-3.4); LYMPH % 29.3 % (22.0-35.0); MEAN CELL VOLUME 87.5 fl (80.0-105.0); MEAN CORPUSCULAR HEMOGLOBIN 29.6 pg (25.0-35.0); MEAN CORPUSCULAR HGB CONC 33.8 g/dl (31.0-37.0); MEAN PLATELET VOLUME 9.5 fl (7.0-11.0); MONO # 0.6 (0.1-0.6); MONO % 7.8 % (1.0-6.0); RBC 3.85 10^6/uL (3.5-6.1); WHITE BLOOD COUNT 7.8 10^3/ul (4.5-11.0)
[2017-07-31 13:37] LABS: ALB/GLOB RATIO 1.5 (1.1-1.8); ALBUMIN 4.1 g/dL (3.0-4.8); CALCIUM 9.1 mg/dL (8.4-10.5)
[2017-07-31 13:57] LABS: IRON 28 ug/dL (45-180)
[2017-07-31 14:06] LABS: % IRON SATURATION 10 % (20-55); TOTAL IRON BINDING CAPACITY 279 ug/dL (261-462)
[2017-07-31] MEDS ORDERED: Promethazine DM 6.25 mg-15 mg/5 ml Syrup PO ONE (20:56)
--- NOTE | 2017-08-01 00:25 | CON ---
DATE: 07/31/2017 LOCATION: Patient is in room 362, bed 2. REASON FOR CONSULTATION: Abdominal pain, coronary artery disease, renal failure, history of stent insertion for coronary artery disease, nausea. HISTORY OF PRESENT ILLNESS: This is a 62-year-old male, known case of coronary artery disease, had multiple cardiac catheterizations, stent insertion, anemia, chronic renal insufficiency, admitted with history that since past several days, he is having abdominal pain with nausea and not eating well, feeling very weak, denied any chest pain, palpitations, shortness of breath. Patient is a known case of diabetes mellitus, hypertension, hyperlipidemia. Recently, he was also told that he has gastroparesis. Patient is now lying flat in the bed, still has abdominal discomfort, still has nausea. PAST MEDICAL HISTORY: Significant for coronary artery disease, multiple stent insertions, chronic renal insufficiency, diabetes mellitus, hypertension, hyperlipidemia, status post DE, recently was told that patient also has gastroparesis. PERSONAL HISTORY: Denies drinking, denies smoking. ALLERGIES: PATIENT DENIES ANY ALLERGIES. FAMILY HISTORY: Not significant. MEDICATIONS AT HOME: Patient was taking chlorthalidone 3 times a week, Namenda, Neurontin, Zocor, metformin, ferrous sulfate, amlodipine, Bystolic, glipizide, Plavix and aspirin. CARDIAC WORKUP: Patient has stress test on 06/15/2016, that showed abnormal myocardial perfusion study, fixed anteroseptal defect that was suggestive of ischemia, ejection fraction of 48%. Echo was done 06/15/2016, that showed ejection fraction of 45%, [id number] hypokinesis of anteroseptal wall, trace aortic regurgitation, mild mitral regurgitation, mild tricuspid regurgitation, RV size normal. MUGA scan was done following this and this showed LV ejection fraction of 51%, which is almost normal. REVIEW OF SYSTEMS: All the systems were reviewed; positive mentioned in the history, others were negative. PHYSICAL EXAMINATION: VITAL SIGNS: Blood pressure 117/76, respirations 16, pulse 72, and temperature 98.5. HEENT: Head is normocephalic. Eyes, pupils normal. Conjunctivae slightly pale. NECK: JVP low. Carotids equal. THORAX: AP diameter normal. LUNGS: Clear. CARDIOVASCULAR: S1 and S2. ABDOMEN: Soft. Tenderness in the upper abdomen. No organomegaly. EXTREMITIES: No clubbing. No cyanosis. LABORATORY DATA: WBC 11.3, hemoglobin 12.3, hematocrit 36.3, platelets 253. Sodium 139, potassium 4.7, BUN 60, creatinine 3.7. Random glucose 200. AST and ALT normal. Magnesium 2.4. Total protein and albumin are normal. Prothrombin time 9.9, INR 0.87, PTT 32.1. Chest x-ray, no active disease. EKG showed regular sinus rhythm; T-inversion V3, V4, V5. CAT scan showed distended fluid-filled loops of bowel consistent with enteritis without any mechanical obstruction. DIAGNOSES: Abdominal pain, nausea, weakness, dehydration, acute on chronic renal failure, baseline creatinine is usually between 2 to 2.4, coronary artery disease, history of multiple stents, hypertension, hyperlipidemia, diabetes mellitus, recent history of gastroparesis. Stress test on 06/15/2016, showed fixed defect. No ischemia. LV dysfunction, hypertension, hyperlipidemia, diabetes mellitus, gastroparesis, anemia, acute on chronic renal failure, dehydration. PLAN: Patient is on Aricept 10 mg daily, aspirin 81 mg daily, ferrous sulfate 324 p.o. b.i.d., Flomax 0.4 daily, glipizide 5 mg daily, chlorthalidone 25 mg daily, has been put on hold as per Dr. Rosales, the senior ux designer because of dehydration and worsening renal function. Atorvastatin 40 mg daily, Namenda 10 mg p.o. daily. Neurontin 300 daily, amlodipine 10 daily, famotidine 20 b.i.d., Plavix 75 daily, Requip 0.25 daily, IV fluid saline 100 mL an hour, and it is changed to now 60 mL an hour as per Dr. Rosales. Zetia 10 mg daily. We will continue present therapy and patient will have a repeat blood work in the morning and we will also check the lipid profile and TSH in the morning. We will follow with you. Anyi Herrera MD
--- NOTE | 2017-08-01 00:33 | CON ---
DATE: NEPHROLOGY CONSULTATION LOCATION: [facility]. HISTORY OF PRESENT ILLNESS: The patient is a 62-year-old male with past medical history of hypertension, diabetes, CAD status post 8 stents and CKD stage IV, presented to ED yesterday with persistent abdominal pain. Nephrology being consulted for acute kidney injury; The patient reports that his symptoms have been ongoing for approximately 3 months; gets this dull epigastric/right upper quadrant abdominal pain; the patient also with nausea that he attributes to his diabetic gastroparesis, but no vomiting; denies any diarrhea; patient otherwise reports feeling weak and fatigued since several months; patient was admitted for pneumonia earlier this year and had been in rehab for approximately 3 months; In ED, patient was given 1 L normal saline bolus and had CAT scan done, which showed dilated loops of bowel and read as enteritis; patient also found to have elevated lactate level; PAST MEDICAL HISTORY: As above, also with restless legs syndrome, on gabapentin and ropinirole, also with reported short-term memory impairment, also with history of esophageal ulcers; FAMILY HISTORY: . 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 REVIEW OF SYSTEMS: CONSTITUTIONAL: As above. HEENT: Reports recent URI symptoms. RESPIRATORY: Denies any difficulty breathing. CARDIOVASCULAR: Denies any chest pain or palpitations, leg swelling has been stable. GI: As per HPI. : Reports frequent urination, was recently put on Flomax by Urology a few days ago. No dysuria. MUSCULOSKELETAL: Complains of muscle aches that is chronic. NEURO: Had been reporting vertigo several months ago, still reports feelings of dizziness. SKIN: Denies any ulcers of feet. PHYSICAL EXAMINATION: VITAL SIGNS: Blood pressure this morning 117/76, heart rate 72, respirations 16, temperature 98.5, O2 sat 97% on room air. GENERAL: No distress. Conversing coherently in full sentences. HEENT: Moist mucous membranes. Nonicteric. Mildly elevated JVD. RESPIRATORY: Lungs clear to auscultation bilaterally. No rales. No rhonchi. No wheezes. CARDIOVASCULAR: Heart sounds S1, S2 normal. No murmurs. No gallops. No rubs. GI: Abdomen is soft. No significant tenderness on palpation, not distended. : No bladder distention. EXTREMITIES: 1+ bilateral lower leg and pedal edema. SKIN: Warm. No cyanosis. No ulcers of feet. NEURO: No numbness of feet. PSYCHIATRIC: Normal mood, not agitated. LABORATORY DATA: Labs from yesterday, CBC, WBC 11.3, hemoglobin 12.3, hematocrit 36.3, platelets 253. Chemistry panel, sodium 139, potassium 4.7, chloride 103, bicarb 16, BUN 60, creatinine 3.7, glucose 200, calcium 9.8, phosphorous 4.3, magnesium 2.4. AST 36, ALT 33, albumin 4.7, lipase 603. UA, specific gravity greater than 1.030, protein greater than 300 mg/dL, trace ketones, negative leukocyte esterase, 2 to 5 wbc's per high-powered field, moderate bacteria, trace coarse granular casts. ASSESSMENT AND PLAN: 1. Acute kidney injury on chronic kidney disease, stage IV, likely prerenal etiology in the setting of decreased p.o. intake and with the patient having been maintained on small dose of diuretics; nonoliguric renal failure; repeat labs not yet available; relatively stable electrolyte status except for metabolic acidosis; stable volume status; agree with continuing IV fluids with decreased rate to 60 mL/hour to avoid any volume overload; 2. Metabolic acidosis. High anion gap secondary to lactic acidosis, which improved on repeat venous gas; patient does not give any symptoms that would be indicative of abdominal ischemia; procalcitonin was relatively low and goes against an infectious process; we will repeat BMP today; patient likely needs to be on p.o. sodium bicarb due to component of acidosis from chronic renal insufficiency; 3. Anemia due to chronic kidney disease. Patient is likely hemo-concentrated per labs done yesterday; otherwise received IV iron on previous admission; we will check iron stores and supplement if needed; 4. Hypertension. Blood pressure currently controlled on amlodipine, Bystolic and chlorthalidone; we will hold chlorthalidone for now; 5. Chronic kidney disease-mineral bone disorder. PTH was previously elevated. We will check PTH and vitamin D 25-hydroxy levels. Thank you for this referral. We will be following up. Vasquez Rosales MD [facility] # [id number]
[2017-08-01 07:21] LABS: BASO # 0.02 K/mm3 (0.0-2.0); BASO % 0.3 % (0.0-3.0); EOS # 0.3 (0.0-0.7); EOS % 4.7 % (1.5-5.0); GRAN # 4.21 (1.4-6.5); GRAN % 60.5 % (50.0-68.0); HEMOGLOBIN 10.6 g/dL (14.0-18.0); LYMPH # 1.8 (1.2-3.4); MEAN CELL VOLUME 86.9 fl (80.0-105.0); MEAN CORPUSCULAR HGB CONC 33.3 g/dl (31.0-37.0); MEAN PLATELET VOLUME 10.3 fl (7.0-11.0); MONO # 0.6 (0.1-0.6); MONO % 8.5 % (1.0-6.0); RBC 3.66 10^6/uL (3.5-6.1); RED CELL DISTRIBUTION WIDTH 16.8 % (11.5-14.5)
[2017-08-01 07:56] LABS: AMYLASE 113 U/L (35-125); BLOOD UREA NITROGEN 37 mg/dL (7-21); CALCIUM 8.7 mg/dL (8.4-10.5); GFR AFRICAN-AMERICAN 27; GFR NON-AFRICAN AMERICAN 22; HDL CHOLESTEROL 33 mg/dL (29-60); LDL CHOLESTEROL < 30 mg/dL (0-129)
--- NOTE | 2017-08-01 08:50 | HP ---
CHIEF COMPLAINT: Abdominal pain, coughing, shortness of breath. HISTORY OF PRESENT ILLNESS: Mr. Anyi Herrera is a 62-year-old male, has abdominal pain, midepigastric tenderness. He has dizziness, lightheadedness, weakness. The patient states pain at most is 10/10. The patient states the pain worse over the last few days and the patient had been evaluated in my office yesterday and was directed to come to the emergency room with abdominal pain 10/10 and coughing, shortness of breath. The patient states no appetite. Nighttime was subjective fever, chills, sweating, chest pain once in a while. No palpitation. No headache. No dizziness. No nausea, vomiting diarrhea, but appetite is not great. PAST MEDICAL HISTORY: Hypertension, pneumonia, cataract, the patient is legally blind with pigmentosa, diabetes mellitus, renal insufficiency, gastroesophageal reflux disease, coronary stents. FAMILY HISTORY: Father and mother, noncontributory. HABITS: Negative smoked. No drug. No ethanol. ALLERGIES: THE PATIENT IS NOT ALLERGIC WITH ANY MEDICATIONS. HOME MEDICATIONS: Ecotrin, Plavix, Zetia, Glucophage, Bystolic, Zocor, Norvasc, Aricept, Neurontin, Requip, hydrochlorothiazide, Pepcid, Namenda, ferrous sulfate, Glucotrol. REVIEW OF SYSTEMS: The patient is seen and examined on the bedside in his room, looking comfortable. No fever. No chills, but still having abdominal pain, getting a bit better. Still coughing, wants some cough syrup. Feeling dizzy, sometime diaphoresis. Has abdominal pain, especially epigastric. No stool changes. PHYSICAL EXAMINATION: VITAL SIGNS: Temperature 97.9, pulse 63, blood pressure 125/80, respiratory rate 18. HEENT: Head normocephalic, atraumatic. Eyes PERRLA. Extraocular muscles intact. Conjunctivae clear. Nose patent. NECK: Supple. No carotid bruit. No JVD or thyromegaly. CHEST: Bilaterally symmetrical. HEART: S1 and S2 positive. LUNGS: Clear to auscultation. ABDOMEN: Soft. Tender in the epigastric area. No organomegaly. EXTREMITIES: No edema. No cyanosis. NEUROLOGICAL: The patient is awake and alert. Follow simple commands. MEDICATIONS: Aricept, Ecotrin, Flomax, glipizide, chlorthalidone, Lipitor, Namenda, Neurontin, Norvasc, Pepcid, Plavix, Requip, NS, Tylenol, Zetia. LABORATORY DATA: White blood cell on admission is 11.3, repeat is 7.8; hemoglobin 11.4; hematocrit 33.7; platelets 195. Sodium 145; potassium 4.6; BUN on admission was 60, now is 35; creatinine is 3.7, now is 3.1; glucose 136; iron 28; lipase 603; vitamin D is 41.5. ASSESSMENT AND PLAN: Mr. Anyi Herrera, a 62-year-old male with leukocytosis, anemia, hyperchloremia, renal insufficiency, improving a little bit. Director Of Institutional Research is on the case. Uncontrolled diabetes mellitus, hypermagnesemia, iron deficiency, proteinuria, ketonuria, coarse granular casts. CAT scan of abdomen and pelvis done shows distended fluid filled loops of bowel consistent with enteritis without mechanical obstruction. Gastroenterology consult called. Put the patient on sliding scale. The patient is depressed. Called consult with Dr. Pamela Lacy. Waiting for Dr. Rosales's input because renal function test is going down. Gastrointestinal and deep venous thrombosis prophylaxis. Repeat labs. We will follow up. Gill Hoffman MD
--- NOTE | 2017-08-01 08:55 | CP.PCM.PN ---
Subjective - Date & Time of Evaluation Date of Evaluation: 08/01/17 Time of Evaluation: 06:10 - Subjective Subjective: Lying in bed in no distress,easily awaken,denies chest pain,denies shortness of breath,complaining of generalized weakness Reason for consultation and follow up:Cardiac evaluation, coronary artery disease, post cardiac stents,abdominal pain for the past few days prior to admission. Seen and examined by me and Dr. Herrera Objective - Vital Signs/Intake and Output Vital Signs (last 24 hours): Temp Pulse Resp BP Pulse Ox 98.1 F 83 18 135/87 95 08/01/17 07:36 08/01/17 07:36 08/01/17 07:36 08/01/17 07:36 08/01/17 07:36 Intake and Output: 08/01/17 08/01/17 06:59 18:59 Intake Total 800 Balance 800 - Medications Medications: Current Medications Acetaminophen (Tylenol 325mg Tab) 650 mg PO Q8H [facility] Last Admin: 08/01/17 04:04 Dose: Not Given Amlodipine Besylate (Norvasc) 10 mg PO DAILY [facility] Last Admin: 07/31/17 09:13 Dose: 10 mg Aspirin (Ecotrin) 81 mg PO DAILY [facility] Last Admin: 07/31/17 09:14 Dose: 81 mg Atorvastatin Calcium (Lipitor) 40 mg PO DAILY [facility] Last Admin: 07/31/17 09:14 Dose: 40 mg Chlorthalidone (Hygroton) 25 mg PO DAILY [facility] Clopidogrel Bisulfate (Plavix) 75 mg PO DAILY [facility] Last Admin: 07/31/17 09:13 Dose: 75 mg Donepezil HCl (Aricept) 10 mg PO DAILY [facility] Last Admin: 07/31/17 09:14 Dose: 10 mg Ezetimibe (Zetia) 10 mg PO DAILY [facility] Last Admin: 07/31/17 09:21 Dose: 10 mg Famotidine (Pepcid) 20 mg PO BID [facility] Last Admin: 07/31/17 17:15 Dose: 20 mg Ferrous Gluconate (Fergon) 324 mg PO BID [facility] Last Admin: 07/31/17 17:15 Dose: 324 mg Gabapentin (Neurontin) 300 mg PO DAILY [facility] PRN Reason: Protocol Last Admin: 07/31/17 09:14 Dose: 300 mg Glipizide (Glucotrol) 5 mg PO DAILY [facility] Last Admin: 07/31/17 09:14 Dose: 5 mg Memantine (Namenda) 10 mg PO DAILY [facility] Last Admin: 07/31/17 09:14 Dose: 10 mg Non-Formulary Medication (Nebivolol [Bystolic]) 5 mg PO DAILY [facility] Last Admin: 07/31/17 09:15 Dose: Not Given Ropinirole HCl (Requip) 0.25 mg PO DAILY [facility] Last Admin: 07/31/17 09:21 Dose: 0.25 mg Tamsulosin HCl (Flomax) 0.4 mg PO DAILY [facility] Last Admin: 07/31/17 12:58 Dose: 0.4 mg - Labs Labs: 08/01/17 06:30 08/01/17 06:30 PT 9.9 SECONDS (9.4-12.5) 07/30/17 13:58 INR 0.87 (0.93-1.08) L 07/30/17 13:58 APTT 32.1 Seconds (25.1-36.5) 07/30/17 13:58 - Constitutional Appears: No Acute Distress - Eye Exam Eye Exam: Normal appearance - ENT Exam ENT Exam: Mucous Membranes Moist - Respiratory Exam Respiratory Exam: Clear to Ausculation Bilateral, NORMAL BREATHING PATTERN - Cardiovascular Exam Cardiovascular Exam: +S1, +S2 Additional comments: Telemetry NSR 60-70's - GI/Abdominal Exam GI & Abdominal Exam: Soft, Normal Bowel Sounds Additional comments: dull epigastric pain - Extremities Exam Extremities Exam: Normal Capillary Refill - Neurological Exam Neurological Exam: Alert, Awake, Oriented x3 - Psychiatric Exam Psychiatric exam: Normal Affect - Skin Skin Exam: Normal Color, Warm Assessment and Plan - Assessment and Plan (Free Text) Assessment: A 62 year old male who came in to the ER due to vague abdominal pain with nausea. He was seen by PMD prior to ER. He has history of coronary artery disease with stents, anemia,chronic renal insufficiency,diabetes mellitus, hypertension,hyperlipidemia, recent pneumonia. Plan: CT of abdomen- distended fluid filled loops of bowel consistent with enteritis Dull abdominal pain GI consulted Seen by Renal for renal insufficiency Cardiac status status BP and heart rate stable On Norvasc 10 mg daily,ASA 81 mg daily,Plavix 75 mg daily, Bystolic 5 mg daily Continue current treatment Continue current medications Will follow up Plan and treatment discussed with Dr. Herrera
[2017-08-01] MEDS: Non Formulary Medication (Nebivolol [Bystolic] 5 MG) PO SCH (11:40)
[2017-08-01] MEDS: Promethazine 6.25 MG/5 ML CUP PO PRN ×2 (13:14→18:16)
[2017-08-01] MEDS: Insulin Lispro (humaLOG) LOW Coverage SC SCH ×2 (16:29→21:36)
[2017-08-01] MEDS: metroNIDAZOLE IV 250mg/50 ml 250 MG/50 ML BAG IVPB SCH (21:35)
--- NOTE | 2017-08-02 00:24 | CON ---
DATE: 08/01/2017 HISTORY OF PRESENT ILLNESS: The patient is a 62-year-old [place] born male with no formal psychiatric history who was seen by Dr. Hoffman in his office on 07/30/2017, and directed to come to the ER due to complains of abdominal pain /10, coughing, and shortness of breath, as well as reduced appetite. Psychiatry was called to evaluate the patient for reported depression per Dr. Hoffman's note on 07/31. I met with the patient at bedside and the patient is alert and well-oriented to month, year, location, and circumstances. The patient is a little oddly-related; however, he is not bizarre, he does not have any notable delusions or paranoia, hallucinations, and he responds coherently and relevantly as well as consistently to all my questioning. The patient is frustrated. He is also resentful and he is a little defensive during the course of my evaluation. He does have depression only in regards to the fact that he has not been feeling well since he has been including pneumonia earlier this year. He is used to be having a lot more energy and having more stamina; however, in recent month, he has had increasing shortness of breath, abdominal pain, weakness, and dizziness. The patient reports being upset and believing that his current primary medical team doubt his complaints or is not taking his complaint seriously enough. He fears being discharged and not having an etiology to his complaint and admits that he told Dr. Hoffman that if a diagnosis or treatment could not be found for his current symptoms that he felt like his life is going to end. The patient admits that he was being dramatic at that point, but feared that his symptoms would worsen until his life did end. The patient is quite adamant that he does not want to end his life. He is not hopeless. He is not suicidal. He is future-oriented. He plans to go to [place] for and he denies having any other stressors except for his medical issues which he relates to his feeling down and frustrated about. The patient specifically states that he has been suffering severe weakness and he has "reduced power at the body" and states "I am not well". The patient indicates repeatedly that he wants his doctors taking seriously or speak positively by Dr. Bloom who does remember the patient used to be a lot healthier the past. The patient is willing to have psychiatric evaluation insofar as a psychiatrist could verify that the patient is well enough and coherent enough and so far as that a psychiatrist can rule out a psychiatric process contributing to the patient's medical complaints. The patient does not appear to be overly enthusiastic about my participation at the side except for helping me obtain better attention to his complaint. He would benefit therapy, unclear benefit from medications, at this time though he is anxious about his medical issues and this might be normal reaction due to current medical stressors as well. The patient wants help and is willing to cooperate with medical team in this regard. PSYCHIATRIC HISTORY: The patient reports no formal psychiatric history in the past. No suicide attempts or psychiatric hospitalization. No current outpatient treatment. SOCIAL HISTORY: The patient was born and raised in [place]. 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 He is . He does not have any drug or alcohol issues, never had any. He sometimes lives with his uncle and sometimes lives with his brother, currently he is living with his brother. MEDICATIONS: Regarding his medications, he is currently taking Aricept 10 mg daily as well as Namenda 10 mg daily, Neurontin 300 mg daily. IMPRESSION: Exacerbation of medical condition, rule out adjustment disorder with depression and anxiety. RECOMMENDATIONS: At this time, the patient does not present to be an acute danger to himself or others. He is coherent and consistent with his complaint. He is not hallucinating, acute delusions were not elicited. The patient may be experiencing some paranoia regarding his feelings that his medical team is not taking his complaints seriously enough; however this is not the point of seclusive. He might benefit from extra support in his life, psychiatric support; however, it is up to the patient if he wants to follow up on this referral. I would provide this type of referral once he is eventually discharged. Obviously, the patient is not interested in inpatient psychiatric hospitalization and does not meet criteria for involuntary commitment. Psychiatry will sign off at this time. Please re-consult if there are any acute changes in patient's presentation. Radha Fleming MD [facility] # [id number]
--- NOTE | 2017-08-02 02:13 | PN ---
DATE: 08/01/2017 SUBJECTIVE: Patient is a 62-year-old male. Patient is seen and examined at the bedside,. Abdominal pain is little bit better. Awake, alert, oriented x3. Looks little bit depressed. Denies shortness of breath, but coughing. Complaining about generalized weakness. No hematuria, no hematochezia. No swelling of the legs. No chest pain. No palpitations. No headache or dizziness. No fever. No chills. PHYSICAL EXAMINATION: VITAL SIGNS: Temperature 98.1, pulse 53, respiratory rate 18, blood pressure 135/87, pulse oximetry 95. HEENT: Head: Normocephalic, atraumatic. Eyes: PERRLA. Extraocular muscles intact. Conjunctivae clear. Nose: Patent. NECK: Supple. No carotid bruit. No JVD or thyromegaly. CHEST: Bilaterally symmetrical. HEART: S1 and S2 positive. LUNGS: Clear to auscultation. ABDOMEN: Soft. Bowel sounds present. No organomegaly. EXTREMITIES: No edema. No cyanosis. NEUROLOGIC: Patient is awake and alert. Moving all four extremities. No focal deficit. MEDICATIONS: Tylenol, Norvasc, Ecotrin, Lipitor, chlorthalidone, Plavix, Aricept, Zetia, Pepcid, Reglan, Neurontin, Glucotrol, Namenda, Requip, Flomax. LABORATORY DATA: White blood cells 7, hemoglobin 10.6, hematocrit 31.8, platelets 208. Sodium 145, potassium 3.9, BUN 37, creatinine 2.9, glucose 90. ASSESSMENT AND PLAN: Mr. Anyi Herrera is a 62-year-old male with anemia, hypernatremia, renal insufficiency. Wire Fence Builder is on the case, hyperchloremia, still having abdominal pain, is getting better, but nauseous. History of coronary artery disease with cardiac stents. Diabetes mellitus, hypertension, hypercholesterolemia, history of pneumonia. CT of the abdomen shows at this time fluid-filled loops of small bowel with enteritis. Gastroenterology is on the case. Nephrology saw the patient. Cardiology saw the patient. Today, the patient was complaining about coughing. I called Pulmonary consult. Continue Norvasc, aspirin, Plavix, Bystolic. Continue current treatment. Has abdominal pain, I am waiting for input of Gastroenterology. The patient has acute kidney injury on chronic kidney disease, stage IV. According to the patient, his appetite is not great. He has decreasing p.o. intake,may be that is prerenal. Metabolic acidosis. We will continue present treatment. Gastrointestinal and deep venous thrombosis prophylaxis. Repeat labs. We will follow up. Gill Hoffman MD
--- NOTE | 2017-08-02 04:08 | CON ---
DATE: 08/01/2017 PULMONARY CONSULTATION REFERRING PHYSICIAN: Gill Hoffman MD REASON FOR CONSULTATION: Dry cough. HISTORY OF PRESENT ILLNESS: This is a 62-year-old gentleman known to me from previous admission, has diabetes with these complications with renal failure, gastroparesis, GERD, hypertension, legally blind, coronary artery disease with coronary stent, comes in with a vague abdominal pain and cough. 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 He has some Reglan at home. When he really feels bloated and does not feel well, takes the Reglan and feels better. There is no hemoptysis, no hematemesis. No leg swelling. PAST MEDICAL HISTORY: As per history of present illness. ALLERGIES: NONE KNOWN. SOCIAL HISTORY: No smoking, no alcohol use. FAMILY HISTORY: Positive diabetes and hypertension. MEDICATIONS: He is on Aricept 10 mg daily, Ecotrin 81 mg daily, ferrous gluconate is 325 mg twice a day, Flomax 0.4 mg daily, glipizide 5 mg daily, insulin coverage, hydrochlorothiazide 25 mg daily, Lipitor 40 mg daily, Namenda 10 mg daily, Bystolic 5 mg daily, gabapentin 300 mg daily, Norvasc 10 mg daily, Pepcid 20 mg twice a day, promethazine 6.25 mg every 4 hour, Plavix 75 mg daily, Requip 0.25 mg daily, Tylenol p.r.n., Zetia 10 mg daily. REVIEW OF SYSTEMS: No headache, no rhinitis. No sputum production. Has a dry cough. No chest pain. Has abdominal pain, constipation. No diarrhea. No leg pain, no leg swelling. PHYSICAL EXAMINATION: GENERAL: Sitting in the side of the bed, in no acute distress. VITAL SIGNS: Temperature is 98, heart rate 69. Respiratory is 20, blood pressure 126/86, pulse ox 99% room air. HEENT: Moist mucous membrane. Crowded airway. NECK: Supple. No JVD. LUNGS: Have a fair airflow with a few rhonchi. HEART: S1, S2. ABDOMEN: Mild epigastric tenderness. Abdomen is soft. EXTREMITIES: There is no edema. NEUROLOGICAL: Awake, alert, follows simple commands. LABORATORY DATA: Shows hemoglobin 10.6, hematocrit 31.8, WBC 7, platelet is 208. INR is 0.87. Has a VBG done, which shows pH 7.25, pCO2 of 49, O2 of 34 that is on room air. Sodium 144, potassium 3.9, chloride 111, bicarbonate 23, BUN 37, creatinine 2.9, glucose 143, glucose 90, calcium is 8.7, phosphorus 4, magnesium 1.9. Iron is 28. Triglyceride 60, cholesterol . TSH 2.29. Microbiology: Blood culture has been negative. Has a CAT scan of abdomen and pelvis done on admission, which shows lower thorax is unremarkable. Liver is unremarkable. Kidney is unremarkable. Bowel finding is fluid filled and dilated loops of small bowel consistent with enteritis without mechanical obstruction. Also had a chest x-ray done which shows no active disease. IMPRESSION AND PLAN: Cough. Has a diabetes, probably has gastroesophageal reflux disease, gastroparesis, history of anemia, renal failure, enteritis without diarrhea. I clinically feel the root cause of his issues are chronic diabetes affecting his organ system, especially with gastroparesis, gastroesophageal reflux disease. For therapeutic purposes point of view, may just start Reglan 10 mg four times a day for 48 hours and see how he feels and how he does. We will add inhaled bronchodilator for pulmonary toilet. Already on Neurontin for pain. Gastroesophageal reflux disease precaution. Being followed by GI. Patient on a liquid diet, reason is for gastroparesis. Thank you and we will follow with you. Anyi Borja MD
--- NOTE | 2017-08-02 05:03 | CP.PCM.PN ---
Subjective - Date & Time of Evaluation Date of Evaluation: 08/02/17 Time of Evaluation: 05:02 - Subjective Subjective: Patient was seen by bedside. Nurse called with BP reading of 160/102. Has no complaints. Denies headache, lightheadedness, heaviness in head, chest pain, sob, weakness , paraesthesia. Medical record was reviewed. This 62 year old male was admitted with abdominal pain, dizziness, lightheadedness, weakness,leukocytosis, anemia, renal insufficiency. Has PMH of HTN,CAD,PNA, DM II, renal insufficiency, GERD, coronary stent placement. Objective - Vital Signs/Intake and Output Vital Signs (last 24 hours): Temp Pulse Resp BP Pulse Ox 98.4 F 69 20 126/86 99 08/01/17 16:00 08/01/17 16:00 08/01/17 16:00 08/01/17 16:00 08/01/17 16:00 Intake and Output: 08/01/17 08/02/17 18:59 06:59 Intake Total 840 1080 Balance 840 1080 - Medications Medications: Current Medications Acetaminophen (Tylenol 325mg Tab) 650 mg PO Q8H [facility] Last Admin: 08/02/17 04:14 Dose: Not Given Amlodipine Besylate (Norvasc) 10 mg PO DAILY [facility] Last Admin: 08/01/17 09:24 Dose: 10 mg Aspirin (Ecotrin) 81 mg PO DAILY [facility] Last Admin: 08/01/17 09:22 Dose: 81 mg Atorvastatin Calcium (Lipitor) 40 mg PO DAILY [facility] Last Admin: 08/01/17 09:24 Dose: 40 mg Benzonatate (Tessalon Perles) 100 mg PO TID [facility] Last Admin: 08/01/17 18:11 Dose: 100 mg Chlorthalidone (Hygroton) 25 mg PO DAILY [facility] Clopidogrel Bisulfate (Plavix) 75 mg PO DAILY [facility] Last Admin: 08/01/17 09:26 Dose: 75 mg Donepezil HCl (Aricept) 10 mg PO DAILY [facility] Last Admin: 08/01/17 09:22 Dose: 10 mg Ezetimibe (Zetia) 10 mg PO DAILY [facility] Last Admin: 08/01/17 09:26 Dose: 10 mg Famotidine (Pepcid) 20 mg PO BID [facility] Last Admin: 08/01/17 18:11 Dose: 20 mg Ferrous Gluconate (Fergon) 324 mg PO BID [facility] Last Admin: 08/01/17 18:11 Dose: 324 mg Gabapentin (Neurontin) 300 mg PO DAILY [facility] PRN Reason: Protocol Last Admin: 08/01/17 09:24 Dose: Not Given Glipizide (Glucotrol) 5 mg PO DAILY [facility] Last Admin: 08/01/17 09:22 Dose: Not Given Levofloxacin/Dextrose (Levaquin 250mg) 250 mg in 50 mls @ 100 mls/hr IVPB DAILY [facility] Metronidazole (Flagyl) 250 mg in 50 mls @ 100 mls/hr IVPB Q8 [facility] PRN Reason: Protocol Stop: 08/06/17 22:01 Last Admin: 08/01/17 21:35 Dose: 100 mls/hr Insulin Human Lispro (Humalog Low) 0 units SC ACHS [facility] PRN Reason: Protocol Last Admin: 08/01/17 21:36 Dose: Not Given Memantine (Namenda) 10 mg PO DAILY [facility] Last Admin: 08/01/17 09:24 Dose: 10 mg Metoclopramide HCl (Reglan) 10 mg PO 0600,1130,1630,2200 [facility] Stop: 08/03/17 23:59 Last Admin: 08/01/17 21:37 Dose: 10 mg Non-Formulary Medication (Nebivolol [Bystolic]) 5 mg PO DAILY [facility] Last Admin: 08/01/17 11:40 Dose: Not Given Promethazine HCl (Phenergan Syrup) 6.25 mg PO Q4H PRN PRN Reason: Cough Last Admin: 08/01/17 18:16 Dose: 6.25 mg Ropinirole HCl (Requip) 0.25 mg PO DAILY [facility] Last Admin: 08/01/17 09:26 Dose: Not Given Tamsulosin HCl (Flomax) 0.4 mg PO DAILY [facility] Last Admin: 08/01/17 09:22 Dose: 0.4 mg - Labs Labs: 08/01/17 06:30 08/01/17 06:30 PT 9.9 SECONDS (9.4-12.5) 07/30/17 13:58 INR 0.87 (0.93-1.08) L 07/30/17 13:58 APTT 32.1 Seconds (25.1-36.5) 07/30/17 13:58 Micro Results 07/30/17 13:58 Blood Blood Culture - Preliminary NO GROWTH AFTER 48 HOURS 07/30/17 13:58 Blood Blood Culture - Preliminary NO GROWTH AFTER 48 HOURS Most Recent Lab Values WBC 7.0 10^3/ul (4.5-11.0) 08/01/17 06:30 RBC 3.66 10^6/uL (3.5-6.1) 08/01/17 06:30 Hgb 10.6 g/dL (14.0-18.0) L 08/01/17 06:30 Hct 31.8 % (42.0-52.0) L 08/01/17 06:30 MCV 86.9 fl (80.0-105.0) 08/01/17 06:30 MCH 29.0 pg (25.0-35.0) 08/01/17 06:30 MCHC 33.3 g/dl (31.0-37.0) 08/01/17 06:30 RDW 16.8 % (11.5-14.5) H 08/01/17 06:30 Plt Count 208 10^3/uL (120.0-450.0) 08/01/17 06:30 MPV 10.3 fl (7.0-11.0) 08/01/17 06:30 Gran % 60.5 % (50.0-68.0) 08/01/17 06:30 Lymph % (Auto) 26.0 % (22.0-35.0) 08/01/17 06:30 [place] % (Auto) 8.5 % (1.0-6.0) H 08/01/17 06:30 Eos % (Auto) 4.7 % (1.5-5.0) 08/01/17 06:30 Baso % (Auto) 0.3 % (0.0-3.0) 08/01/17 06:30 Gran # 4.21 (1.4-6.5) 08/01/17 06:30 Lymph # (Auto) 1.8 (1.2-3.4) 08/01/17 06:30 [place] # (Auto) 0.6 (0.1-0.6) 08/01/17 06:30 Eos # (Auto) 0.3 (0.0-0.7) 08/01/17 06:30 Baso # (Auto) 0.02 K/mm3 (0.0-2.0) 08/01/17 06:30 PT 9.9 SECONDS (9.4-12.5) 07/30/17 13:58 INR 0.87 (0.93-1.08) L 07/30/17 13:58 APTT 32.1 Seconds (25.1-36.5) 07/30/17 13:58 pO2 34 mm/Hg (30-55) 07/30/17 17:02 VBG pH 7.25 (7.32-7.43) L 07/30/17 17:02 VBG pCO2 49.0 (40-60) 07/30/17 17:02 VBG HCO3 21.5 mmol/l (21-28) 07/30/17 17:02 VBG Total CO2 23.0 mmol.L (22-28) 07/30/17 17:02 VBG O2 Sat (Calc) 68.3 % (40-65) H 07/30/17 17:02 VBG Base Excess -6.0 mmol/L (0.0-2.0) L 07/30/17 17:02 VBG Potassium 4.6 mmol/L (3.6-5.2) 07/30/17 17:02 Sodium 140.0 mmol/L (132-148) 07/30/17 17:02 Chloride 110.0 mmol/L (98-107) H 07/30/17 17:02 Glucose 60 mg/dl (75-110) L 07/30/17 17:02 Lactate 2.7 mmol/L (0.7-2.1) H 07/30/17 17:02 FiO2 21.0 % 07/30/17 17:02 Sodium 145 mmol/L (132-148) 08/01/17 06:30 Potassium 3.9 mmol/L (3.6-5.0) 08/01/17 06:30 Chloride 111 mmol/L (98-107) H 08/01/17 06:30 Carbon Dioxide 23 mmol/L (21-33) 08/01/17 06:30 Anion Gap 15 (10-20) 08/01/17 06:30 BUN 37 mg/dL (7-21) H 08/01/17 06:30 Creatinine 2.9 mg/dl (0.8-1.5) H 08/01/17 06:30 Est GFR ( Amer) 27 08/01/17 06:30 Est GFR (Non-Af Amer) 22 08/01/17 06:30 POC Glucose (mg/dL) 122 mg/dL (65-110) H 08/01/17 21:18 Random Glucose 90 mg/dL (70-110) 08/01/17 06:30 Lactic Acid 0.8 mmol/L (0.7-2.1) 07/31/17 12:50 Calcium 8.7 mg/dL (8.4-10.5) 08/01/17 06:30 Phosphorus 4.0 mg/dL (2.5-4.5) 08/01/17 06:30 Magnesium 1.9 mg/dL (1.7-2.2) 08/01/17 06:30 Iron 28 ug/dL (45-180) L 07/31/17 13:00 TIBC 279 ug/dL (261-462) 07/31/17 13:00 % Saturation 10 % (20-55) L 07/31/17 13:00 Ferritin 108.0 ng/mL 07/31/17 12:50 Total Bilirubin 0.4 mg/dL (0.2-1.3) 07/31/17 12:50 AST 38 U/L (17-59) 07/31/17 12:50 ALT 42 U/L (7-56) 07/31/17 12:50 Alkaline Phosphatase 66 U/L (38-126) 07/31/17 12:50 Troponin I 0.01 ng/mL D 07/30/17 13:58 NT-Pro-B Natriuret Pep 507 pg/mL (0-450) H 07/30/17 13:58 Total Protein 6.8 g/dL (5.8-8.3) 07/31/17 12:50 Albumin 4.1 g/dL (3.0-4.8) 07/31/17 12:50 Globulin 2.7 gm/dL 07/31/17 12:50 Albumin/Globulin Ratio 1.5 (1.1-1.8) 07/31/17 12:50 Triglycerides 60 mg/dL (35-160) 08/01/17 06:30 Cholesterol 66 mg/dL (130-200) L 08/01/17 06:30 LDL Cholesterol Direct < 30 mg/dL (0-129) 08/01/17 06:30 HDL Cholesterol 33 mg/dL (29-60) 08/01/17 06:30 Amylase 113 U/L (35-125) 08/01/17 06:30 Lipase 147 U/L (23-300) 07/31/17 12:50 25-OH Vitamin D Total 41.5 NG/ML (30.0-100.0) 07/31/17 12:50 Procalcitonin 0.25 NG/ML (0.19-0.49) 07/30/17 13:58 TSH 3rd Generation 2.29 mIU/mL (0.46-4.68) 08/01/17 06:30 Venous Blood Potassium 4.6 mmol/L (3.6-5.2) 07/30/17 17:02 Urine Color Yellow (YELLOW) 07/30/17 15:04 Urine Appearance Clear (CLEAR) 07/30/17 15:04 Urine pH 5.5 (4.7-8.0) 07/30/17 15:04 Ur Specific [place] >= 1.030 (1.005-1.035) 07/30/17 15:04 Urine Protein >=300 mg/dL (<30 mg/dL) H 07/30/17 15:04 Urine Glucose (UA) Negative mg/dL (NEGATIVE) 07/30/17 15:04 Urine Ketones Trace mg/dL (NEGATIVE) H 07/30/17 15:04 Urine Blood Negative (NEGATIVE) 07/30/17 15:04 Urine Nitrate Negative (NEGATIVE) 07/30/17 15:04 Urine Bilirubin Negative (NEGATIVE) 07/30/17 15:04 Urine Urobilinogen 0.2 E.U./dL (<1 E.U./dL) 07/30/17 15:04 Ur Leukocyte Esterase Negative [place]/uL (NEGATIVE) 07/30/17 15:04 Urine RBC 1 - 3 /hpf (0-2) 07/30/17 15:04 Urine WBC 2 - 5 /hpf (0-6) 07/30/17 15:04 Ur Epithelial Cells 0 - 2 /hpf (0-5) 07/30/17 15:04 Amorphous Sediment Few 07/30/17 15:04 Urine Bacteria Mod (NEG) 07/30/17 15:04 Coarse Granular Casts Trace /hpf (0-2) H 07/30/17 15:04 - Constitutional Appears: Well, No Acute Distress - Head Exam Head Exam: ATRAUMATIC, NORMAL INSPECTION, NORMOCEPHALIC - Eye Exam Eye Exam: Normal appearance - ENT Exam ENT Exam: Normal External Ear Exam - Neck Exam Neck Exam: Normal Inspection - Respiratory Exam Respiratory Exam: NORMAL BREATHING PATTERN - Cardiovascular Exam Cardiovascular Exam: absent: JVD - GI/Abdominal Exam GI & Abdominal Exam: absent: Distended - Rectal Exam Rectal Exam: Deferred - Exam Additional comments: Deferred. - Extremities Exam Extremities Exam: Normal Inspection - Back Exam Back Exam: NORMAL INSPECTION - Neurological Exam Neurological Exam: Alert, Oriented x3 - Psychiatric Exam Psychiatric exam: Normal Affect, Normal Mood - Skin Skin Exam: Normal Color Assessment and Plan - Assessment and Plan (Free Text) Assessment: Elevated blood pressure reading. HTN. CAD. DM II. GERD. Renal insufficiency. Plan: Norvasc 10 mg PO stat. Continue present management as per PMD.
[2017-08-02] MEDS: metroNIDAZOLE IV 250mg/50 ml 250 MG/50 ML BAG IVPB SCH ×3 (05:18→22:01)
--- NOTE | 2017-08-02 07:18 | CP.PCM.PN ---
Subjective - Date & Time of Evaluation Date of Evaluation: 08/02/17 Time of Evaluation: 06:20 - Subjective Subjective: Lying in bed in no distress,easily awaken,denies chest pain,denies shortness of breath Reason for consultation and follow up:Cardiac evaluation, coronary artery disease, post cardiac stents,abdominal pain for the past few days prior to admission. Seen and examined by me and Dr. Jacobo Objective - Vital Signs/Intake and Output Vital Signs (last 24 hours): Temp Pulse Resp BP Pulse Ox 98.4 F 69 20 138/92 H 99 08/01/17 16:00 08/01/17 16:00 08/01/17 16:00 08/02/17 06:56 08/01/17 16:00 Intake and Output: 08/02/17 08/02/17 06:59 18:59 Intake Total 1320 Balance 1320 - Medications Medications: Current Medications Acetaminophen (Tylenol 325mg Tab) 650 mg PO Q8H [facility] Last Admin: 08/02/17 04:14 Dose: Not Given Amlodipine Besylate (Norvasc) 10 mg PO DAILY [facility] Last Admin: 08/01/17 09:24 Dose: 10 mg Aspirin (Ecotrin) 81 mg PO DAILY [facility] Last Admin: 08/01/17 09:22 Dose: 81 mg Atorvastatin Calcium (Lipitor) 40 mg PO DAILY [facility] Last Admin: 08/01/17 09:24 Dose: 40 mg Benzonatate (Tessalon Perles) 100 mg PO TID [facility] Last Admin: 08/01/17 18:11 Dose: 100 mg Chlorthalidone (Hygroton) 25 mg PO DAILY [facility] Clopidogrel Bisulfate (Plavix) 75 mg PO DAILY [facility] Last Admin: 08/01/17 09:26 Dose: 75 mg Donepezil HCl (Aricept) 10 mg PO DAILY [facility] Last Admin: 08/01/17 09:22 Dose: 10 mg Ezetimibe (Zetia) 10 mg PO DAILY [facility] Last Admin: 08/01/17 09:26 Dose: 10 mg Famotidine (Pepcid) 20 mg PO BID [facility] Last Admin: 08/01/17 18:11 Dose: 20 mg Ferrous Gluconate (Fergon) 324 mg PO BID [facility] Last Admin: 08/01/17 18:11 Dose: 324 mg Gabapentin (Neurontin) 300 mg PO DAILY [facility] PRN Reason: Protocol Last Admin: 08/01/17 09:24 Dose: Not Given Glipizide (Glucotrol) 5 mg PO DAILY [facility] Last Admin: 08/01/17 09:22 Dose: Not Given Levofloxacin/Dextrose (Levaquin 250mg) 250 mg in 50 mls @ 100 mls/hr IVPB DAILY [facility] Metronidazole (Flagyl) 250 mg in 50 mls @ 100 mls/hr IVPB Q8 [facility] PRN Reason: Protocol Stop: 08/06/17 22:01 Last Admin: 08/02/17 05:18 Dose: 100 mls/hr Insulin Human Lispro (Humalog Low) 0 units SC ACHS [facility] PRN Reason: Protocol Last Admin: 08/01/17 21:36 Dose: Not Given Memantine (Namenda) 10 mg PO DAILY [facility] Last Admin: 08/01/17 09:24 Dose: 10 mg Metoclopramide HCl (Reglan) 10 mg PO 0600,1130,1630,2200 [facility] Stop: 08/03/17 23:59 Last Admin: 08/02/17 05:18 Dose: 10 mg Non-Formulary Medication (Nebivolol [Bystolic]) 5 mg PO DAILY [facility] Last Admin: 08/01/17 11:40 Dose: Not Given Promethazine HCl (Phenergan Syrup) 6.25 mg PO Q4H PRN PRN Reason: Cough Last Admin: 08/01/17 18:16 Dose: 6.25 mg Ropinirole HCl (Requip) 0.25 mg PO DAILY [facility] Last Admin: 08/01/17 09:26 Dose: Not Given Tamsulosin HCl (Flomax) 0.4 mg PO DAILY [facility] Last Admin: 08/01/17 09:22 Dose: 0.4 mg - Labs Labs: 08/01/17 06:30 08/01/17 06:30 PT 9.9 SECONDS (9.4-12.5) 07/30/17 13:58 INR 0.87 (0.93-1.08) L 07/30/17 13:58 APTT 32.1 Seconds (25.1-36.5) 07/30/17 13:58 - Constitutional Appears: No Acute Distress - Head Exam Head Exam: NORMOCEPHALIC - Eye Exam Pupil Exam: NORMAL ACCOMODATION - ENT Exam ENT Exam: Mucous Membranes Moist - Respiratory Exam Respiratory Exam: Clear to Ausculation Bilateral, NORMAL BREATHING PATTERN - Cardiovascular Exam Cardiovascular Exam: +S1, +S2 - GI/Abdominal Exam GI & Abdominal Exam: Soft, Normal Bowel Sounds - Extremities Exam Extremities Exam: Normal Capillary Refill - Neurological Exam Neurological Exam: Alert, Awake, Oriented x3 - Psychiatric Exam Psychiatric exam: Normal Affect, Normal Mood - Skin Skin Exam: Intact, Normal Color, Warm Assessment and Plan - Assessment and Plan (Free Text) Assessment: A 62 year old male who came in to the ER due to vague abdominal pain with nausea. He was seen by PMD prior to ER. He has history of coronary artery disease with stents, anemia,chronic renal insufficiency,diabetes mellitus, hypertension,hyperlipidemia, recent pneumonia. Plan: Blood pressure elevated this morning, seen by hospitalist and was given Norvasc 10 mg po. Patient was taking Bystolic 5 mg daily at home plus Norvasc 10 mg daily. Bystolic is non formulary. Will add Lopressor [address] of abdomen- distended fluid filled loops of bowel consistent with enteritis GI consulted On Norvasc 10 mg daily,ASA 81 mg daily,Plavix 75 mg daily, Continue current treatment Continue current medications Will follow up Plan and treatment discussed with Dr. Jacobo
[2017-08-02] MEDS: Insulin Lispro (humaLOG) LOW Coverage SC SCH ×4 (07:58→22:48)
[2017-08-02] MEDS: levoFLOXacin 250 mg in D5W 250 MG/50 ML BAG IVPB SCH (09:32)
--- NOTE | 2017-08-02 11:48 | CP.PCM.PCO ---
Physician Communication Note - Physician Communication Note Physician Communication Note: signed off over the weekend, pt not interested in psychiatric care
--- NOTE | 2017-08-02 12:47 | CP.PCM.PN ---
<Nicky Gilbert - Last Filed: 08/02/17 16:23> Subjective - Date & Time of Evaluation Date of Evaluation: 08/02/17 Time of Evaluation: 11:00 - Subjective Subjective: PGY-2 GI progress note Patient seen and examined at bedside. No acute distress. Patient states that his abd pain has improved. He is lying in bed in no distress. He deneis nausea, vomiting, diarrhea or constipation. H e is tolerating liquid diet. Objective - Vital Signs/Intake and Output Vital Signs (last 24 hours): Temp Pulse Resp BP Pulse Ox 98.2 F 89 20 160/102 H 97 08/02/17 07:39 08/02/17 07:39 08/02/17 07:39 08/02/17 07:39 08/02/17 07:39 Intake and Output: 08/02/17 08/02/17 06:59 18:59 Intake Total 1320 Balance 1320 - Medications Medications: Current Medications Acetaminophen (Tylenol 325mg Tab) [address] [facility] Last Admin: 08/02/17 12:23 Dose: 650 mg Amlodipine Besylate (Norvasc) [address] [facility] Last Admin: 08/02/17 09:34 Dose: Not Given Aspirin (Ecotrin) [address] [facility] Last Admin: 08/02/17 09:30 Dose: 81 mg Atorvastatin Calcium (Lipitor) [address] [facility] Last Admin: 08/02/17 09:32 Dose: 40 mg Benzonatate (Tessalon Perles) [address] [facility] Last Admin: 08/02/17 09:35 Dose: 100 mg Chlorthalidone (Hygroton) [address] [facility] Clopidogrel Bisulfate (Plavix) [address] [facility] Last Admin: 08/02/17 09:34 Dose: 75 mg Donepezil HCl (Aricept) [address] [facility] Last Admin: 08/02/17 09:30 Dose: 10 mg Ezetimibe (Zetia) [address] [facility] Last Admin: 08/02/17 09:35 Dose: 10 mg Famotidine (Pepcid) 20 mg PO [facility] Ferrous Gluconate (Fergon) [address] [facility] Last Admin: 08/02/17 09:30 Dose: 324 mg Gabapentin (Neurontin) [address] [facility] PRN Reason: Protocol Last Admin: 08/02/17 09:33 Dose: Not Given Glipizide (Glucotrol) [address] [facility] Last Admin: 08/02/17 09:31 Dose: Not Given Levofloxacin/Dextrose (Levaquin 250mg) 250 mg in 50 mls @ 100 mls/hr IVPB DAILY [facility] Last Admin: 08/02/17 09:32 Dose: 100 mls/hr Metronidazole (Flagyl) 250 mg in 50 mls @ 100 mls/hr IVPB Q8 [facility] PRN Reason: Protocol Stop: 08/06/17 22:01 Last Admin: 08/02/17 05:18 Dose: 100 mls/hr Insulin Human Lispro (Humalog Low) [address] [facility] PRN Reason: Protocol Last Admin: 08/02/17 12:23 Dose: 1 units Memantine (Namenda) [address] [facility] Last Admin: 08/02/17 09:33 Dose: 10 mg Metoclopramide HCl (Reglan) 10 mg PO 0600,1130,1630,2200 [facility] Stop: 08/03/17 23:59 Last Admin: 08/02/17 12:23 Dose: 10 mg Metoprolol Tartrate (Lopressor) [address] [facility] Promethazine HCl (Phenergan Syrup) 6.25 mg PO Q4H PRN PRN Reason: Cough Last Admin: 08/01/17 18:16 Dose: 6.25 mg Ropinirole HCl (Requip) 0.[address] [facility] Last Admin: 08/02/17 09:34 Dose: Not Given Tamsulosin HCl (Flomax) 0.[address] [facility] Last Admin: 08/02/17 09:30 Dose: 0.4 mg - Labs Labs: 08/01/17 06:30 08/01/17 06:30 PT 9.9 SECONDS (9.4-12.5) 07/30/17 13:58 INR 0.87 (0.93-1.08) L 07/30/17 13:58 APTT 32.1 Seconds (25.1-36.5) 07/30/17 13:58 - Constitutional Appears: Well, No Acute Distress - Head Exam Head Exam: ATRAUMATIC, NORMOCEPHALIC - Eye Exam Eye Exam: EOMI, Normal appearance - ENT Exam ENT Exam: Mucous Membranes Moist - Respiratory Exam Respiratory Exam: Clear to Ausculation Bilateral, NORMAL BREATHING PATTERN. absent: Rhonchi, Wheezes, Respiratory Distress - Cardiovascular Exam Cardiovascular Exam: REGULAR RHYTHM, +S1, +S2. absent: Bradycardia, Tachycardia , Murmur - GI/Abdominal Exam GI & Abdominal Exam: Soft, Tenderness (epigastric), Normal Bowel Sounds. absent : Distended, Firm - Extremities Exam Extremities Exam: Normal Inspection. absent: Pedal Edema - Neurological Exam Neurological Exam: Alert, Awake, Oriented x3 Assessment and Plan - Assessment and Plan (Free Text) Assessment: 62 year old male who came in to the ER due to vague abdominal pain with nausea found to have possible entritis. history of coronary artery disease with stents, anemia chronic renal insufficiency HTN Plan: CT of abdomen- distended fluid filled loops of bowel consistent with enteritis MRCP without contrast is ordered GI ppx with pepcid continue antibiotics metronidazole and levofloxacin Continue to monitor colonscopy tomorrow afternoon NPO after clear liquid diet in the morning case reviewed ad discussed with Dr. Bloom <Jefferson Bloom V - Last Filed: 08/03/17 01:01> Objective - Vital Signs/Intake and Output Vital Signs (last 24 hours): Temp Pulse Resp BP Pulse Ox 97.6 F 84 20 144/95 H 100 08/02/17 16:21 08/02/17 16:21 08/02/17 16:21 08/02/17 18:57 08/02/17 16:21 Intake and Output: 08/02/17 08/03/17 18:59 06:59 Intake Total 960 360 Balance 960 360 - Medications Medications: Current Medications Acetaminophen (Tylenol 325mg Tab) [address] [facility] Last Admin: 08/02/17 22:01 Dose: 650 mg Amlodipine Besylate (Norvasc) [address] [facility] Last Admin: 08/02/17 09:34 Dose: Not Given Aspirin (Ecotrin) [address] [facility] Last Admin: 08/02/17 09:30 Dose: 81 mg Atorvastatin Calcium (Lipitor) [address] [facility] Last Admin: 08/02/17 09:32 Dose: 40 mg Benzonatate (Tessalon Perles) [address] [facility] Last Admin: 08/02/17 18:57 Dose: 100 mg Chlorthalidone (Hygroton) [address] [facility] Clopidogrel Bisulfate (Plavix) [address] [facility] Last Admin: 08/02/17 09:34 Dose: 75 mg Donepezil HCl (Aricept) [address] [facility] Last Admin: 08/02/17 09:30 Dose: 10 mg Ezetimibe (Zetia) [address] [facility] Last Admin: 08/02/17 09:35 Dose: 10 mg Famotidine (Pepcid) [address] [facility] Last Admin: 08/02/17 22:00 Dose: 20 mg Ferrous Gluconate (Fergon) [address] [facility] Last Admin: 08/02/17 18:58 Dose: 324 mg Gabapentin (Neurontin) [address] [facility] PRN Reason: Protocol Last Admin: 08/02/17 09:33 Dose: Not Given Glipizide (Glucotrol) [address] [facility] Last Admin: 08/02/17 09:31 Dose: Not Given Hydralazine HCl (Apresoline) [address] [facility] Last Admin: 08/02/17 18:57 Dose: 50 mg Levofloxacin/Dextrose (Levaquin 250mg) 250 mg in 50 mls @ 100 mls/hr IVPB DAILY [facility] Last Admin: 08/02/17 09:32 Dose: 100 mls/hr Metronidazole (Flagyl) 250 mg in 50 mls @ 100 mls/hr IVPB Q8 [facility] PRN Reason: Protocol Stop: 08/06/17 22:01 Last Admin: 08/02/17 22:01 Dose: 100 mls/hr Insulin Human Lispro (Humalog Low) [address] [facility] PRN Reason: Protocol Last Admin: 08/02/17 22:48 Dose: Not Given Memantine (Namenda) [address] [facility] Last Admin: 08/02/17 09:33 Dose: 10 mg Metoclopramide HCl (Reglan) 10 mg PO 0600,1130,1630,2200 [facility] Stop: 08/03/17 23:59 Last Admin: 08/02/17 22:01 Dose: 10 mg Metoprolol Tartrate (Lopressor) [address] [facility] Last Admin: 08/02/17 18:59 Dose: 25 mg Promethazine HCl (Phenergan Syrup) 6.25 mg PO Q4H PRN PRN Reason: Cough Last Admin: 08/02/17 22:03 Dose: 6.25 mg Ropinirole HCl (Requip) 0.[address] [facility] Last Admin: 08/02/17 09:34 Dose: Not Given Tamsulosin HCl (Flomax) 0.4 mg PO DAILY [facility] Last Admin: 08/02/17 09:30 Dose: 0.4 mg - Labs Labs: 08/01/17 06:30 08/01/17 06:30 PT 9.9 SECONDS (9.4-12.5) 07/30/17 13:58 INR 0.87 (0.93-1.08) L 07/30/17 13:58 APTT 32.1 Seconds (25.1-36.5) 07/30/17 13:58 Attending/Attestation - Attestation I have personally seen and examined this patient.: Yes I have fully participated in the care of the patient.: Yes I have reviewed all pertinent clinical information, including history, physical exam and plan: Yes Notes (Text): This is an addendum to GI progress report dictated by the Employment Supervisor.The patient was seen and examined earlier. Medical records, lab studies, imagings were reviewed. Last 24 hours events reviewed. Agreed with the above treatment plan as outlined in Employment Supervisor 's notes the with the addition of the following Patient feels slightly better. still on antibiotics abdominal discomfort less Abdomen soft mild tenderness on deep palpation Awaiting for MRI Patient is anemic Discussed with PCP Scheduled for colonoscopy 08/03/17 00:49
--- NOTE | 2017-08-02 14:03 | CON ---
DATE: 08/02/2017 NEUROLOGY CONSULTATION CHIEF COMPLAINT: Evaluate for Parkinson's. HISTORY OF PRESENTING ILLNESS: This is a 62-year-old man known to me from previous medical history, who has a history of diabetic peripheral neuropathy with a wide-based gait, history of cervicalgia, was on gabapentin, but does not take it at home, history of coronary artery disease, status post stent, CKD, came in for abdominal pain, found to have some small bowel enteritis with acute on chronic insufficiency and also has elevated systolic and diastolic blood pressures. Feels generally weak. I was called to evaluate for Parkinson disease. He does not have any cogwheel rigidity or any parkinsonism type features. He does have a wide-based gait which is most likely related to his underlying neuropathy. The concerning point is that he has abdominal pain as well as elevated systolic and diastolic blood pressures. PAST MEDICAL HISTORY: As above. SOCIAL HISTORY: No illicit drug use, smoking, or EtOH abuse. REVIEW OF SYSTEMS: A 14-point review of systems negative except as per the HPI. FAMILY HISTORY: Noncontributory. MEDICATIONS: Reviewed by nurse per reconciliation sheet. ALLERGIES: NO KNOWN DRUG ALLERGIES. PHYSICAL EXAMINATION: VITAL SIGNS: Temperature of pulse of 89, blood pressure 162/102, respiratory rate of . GENERAL: The patient is sitting up in bed, in no acute distress. HEENT: Head is atraumatic, normocephalic. PERRLA. Extraocular muscles intact. NECK: Supple. No JVD. No adenopathy noted. LUNGS: Clear to auscultation. No adventitious sounds. HEART: S1 and S2, normal rate and rhythm. No murmur, rubs, or gallops. ABDOMEN: Soft, nontender, nondistended. Bowel sounds present. EXTREMITIES: No clubbing. No cyanosis. Peripheral pulses 2+ felt bilaterally. NEUROLOGIC: The patient is alert and oriented to person, place, month, and year. Speech is fluent without any errors. Cranial nerves II through XII intact. Motor: Moves all extremities equally. No pronator drift seen. No cogwheel rigidity seen. Sensory: Decreased light touch and pinprick up to the calves bilaterally. Decreased vibration of the toes. DTRs are 2+ throughout, 1 at both knees and ankles. Coordination: [id number] intact. No dysmetria noted. Gait is slightly wide-based, but no parkinsonism. LABORATORY DATA: Reviewed. Today's blood sugar is 180. ASSESSMENT AND PLAN: This is a 62-year-old man with history of coronary artery disease, status post stent, status post type 2 diabetes mellitus, hypertension, hyperlipidemia, cervicalgia, was on gabapentin, denies taken it with chronic kidney disease, came in for abdominal pain, small bowel enteritis, underwent MRI of the abdomen, had hypertensive urgency and therefore causing some generalized weakness. I was called to evaluate for Parkinson disease. At this time, I do not think he has any form of parkinsonism. He has some evidence of diabetic neuropathy with wide-based gait, which is old. I do not see any tremors upon examination and he has been placed on Requip which likely could be from his restless leg at night. At this time, we recommend, 1. Physical therapy for his underlying deconditioned state. 2. Follow up with his workup for enteritis. 3. Aspirin 81 mg p.o. daily. 4. Keep his systolic blood pressures 130s to 140s and diastolic 70s to 80s. 5. Keep blood sugars between 140 to 180 and continue with current present medical management. Thank you for this consult. Papo Jensen MD
[2017-08-02] MEDS ORDERED: Peg-Electrolyte Oral Soln 4L (Golytely) PO ONE (16:19)
[2017-08-02] MEDS ORDERED: Bisacodyl 5mg EC Tab PO ONE (16:20)
[2017-08-02] MEDS: Promethazine 6.25 MG/5 ML CUP PO PRN (22:03)
--- NOTE | 2017-08-02 22:16 | MRI ---
EXAM: MR Abdomen Without Intravenous Contrast, MRCP Protocol EXAM DATE/TIME: 08/01/2017 8:36 PM CLINICAL HISTORY: 62 years old, male; Pain; Abdominal pain; Generalized; Additional info: Pancreatitis TECHNIQUE: Multiplanar magnetic resonance images of the abdomen without intravenous contrast using MRCP protocol. COMPARISON: Prior CT abdomen dated 07/30/2017. FINDINGS: LIMITATIONS: Mild to moderate streak/motion artifact. BILE DUCTS: Bile ducts appear nondilated. No definite bile duct stones visualized. GALLBLADDER: No evidence of gallstones or pericholecystic fluid. No evidence of significant gallbladder dilatation. LIVER: Within normal limits in appearance. No evidence of significant perihepatic free fluid. PANCREAS: No evidence of significant peripancreatic fluid or stranding. No evidence of pancreatic ductal dilatation. KIDNEYS AND URETERS: Small amount of perinephric fluid incidentally noted bilaterally, a nonspecific finding. IMPRESSION: - No acute abnormality of the gallbladder, bile ducts or pancreas identified. - See above for remaining findings.
--- NOTE | 2017-08-02 22:25 | PN ---
DATE: 08/02/2017 PULMONARY PROGRESS NOTE REFERRING PHYSICIAN: Dr. Hoffman. SUBJECTIVE: Patient is lying in the bed, head at 45 degrees. Night was unremarkable. Feels better. Bloating is better. Cough is better. No abdominal pain. No dysuria, leg pain or leg swelling. OBJECTIVE: GENERAL: In no acute distress. VITAL SIGNS: Temperature is 98, heart rate is 84, respiratory rate is 20, blood pressure 144/95, pulse ox 97% on nasal cannula. HEENT: Moist mucous membrane. Crowded airway. NECK: Supple. No JVD. LUNGS: Have fair airflow with rhonchi. HEART: S1 and S2. ABDOMEN: Soft, nontender, nondistended. EXTREMITIES: No edema. NEUROLOGIC: Awake and follows simple command. MEDICATIONS He is on hydralazine 50 mg twice a day, Aricept 10 mg daily, Ecotrin 81 mg daily, ferrous gluconate 325 mg twice a day, Flagyl 250 mg every 8 hours, Flomax 0.4 mg daily, glipizide 5 mg daily, also on chlorthalidone 25 mg daily, Levaquin 250 mg daily, Lipitor 40 mg daily, metoprolol tartrate 25 mg twice a day, Namenda 10 mg daily, Neurontin 300 mg daily, Norvasc 10 mg daily, Pepcid 20 mg daily, Phenergan 6.25 mg every 4 hours p.r.n., Plavix 75 mg daily, Reglan 10 mg four times a day, Requip 0.25 mg daily, Tessalon Perles 100 mg three times, Tylenol p.r.n., Zetia 10 mg daily. LABORATORY DATA: Shows blood sugar 123. Microbiology: Blood cultures are negative. IMPRESSION AND PLAN: Diabetes, gastroparesis, gastroesophageal reflux disease with gastroesophageal reflux disease related cough, anemia, renal failure, enteritis. Pulmonary point of view, much better. There is no cough since started on Reglan, also on Protonix. Started antibiotics for enteritis. We will give Reglan for a day or so and then stop it. Gastroenterology followup. Patient needs to stay on a soft diet with smaller portion. Thank you and we will follow with you. Anyi Borja MD
--- NOTE | 2017-08-02 23:18 | CP.PCM.PN ---
Subjective - Date & Time of Evaluation Date of Evaluation: 08/02/17 Time of Evaluation: 11:00 - Subjective Subjective: BP noted to be elevated today; patient denies any chest pain, sob; leg swelling is chronic; Objective - Vital Signs/Intake and Output Vital Signs (last 24 hours): Temp Pulse Resp BP Pulse Ox 97.6 F 84 20 144/95 H 100 08/02/17 16:21 08/02/17 16:21 08/02/17 16:21 08/02/17 18:57 08/02/17 16:21 Intake and Output: 08/02/17 08/03/17 18:59 06:59 Intake Total 960 360 Balance 960 360 - Medications Medications: Current Medications Acetaminophen (Tylenol 325mg Tab) 650 mg PO Q8H [facility] Last Admin: 08/02/17 22:01 Dose: 650 mg Amlodipine Besylate (Norvasc) 10 mg PO DAILY [facility] Last Admin: 08/02/17 09:34 Dose: Not Given Aspirin (Ecotrin) 81 mg PO DAILY [facility] Last Admin: 08/02/17 09:30 Dose: 81 mg Atorvastatin Calcium (Lipitor) 40 mg PO DAILY [facility] Last Admin: 08/02/17 09:32 Dose: 40 mg Benzonatate (Tessalon Perles) 100 mg PO TID [facility] Last Admin: 08/02/17 18:57 Dose: 100 mg Chlorthalidone (Hygroton) 25 mg PO DAILY [facility] Clopidogrel Bisulfate (Plavix) 75 mg PO DAILY [facility] Last Admin: 08/02/17 09:34 Dose: 75 mg Donepezil HCl (Aricept) 10 mg PO DAILY [facility] Last Admin: 08/02/17 09:30 Dose: 10 mg Ezetimibe (Zetia) 10 mg PO DAILY [facility] Last Admin: 08/02/17 09:35 Dose: 10 mg Famotidine (Pepcid) 20 mg PO HS [facility] Last Admin: 08/02/17 22:00 Dose: 20 mg Ferrous Gluconate (Fergon) 324 mg PO BID [facility] Last Admin: 08/02/17 18:58 Dose: 324 mg Gabapentin (Neurontin) 300 mg PO DAILY [facility] PRN Reason: Protocol Last Admin: 08/02/17 09:33 Dose: Not Given Glipizide (Glucotrol) 5 mg PO DAILY [facility] Last Admin: 08/02/17 09:31 Dose: Not Given Hydralazine HCl (Apresoline) 50 mg PO BID [facility] Last Admin: 08/02/17 18:57 Dose: 50 mg Levofloxacin/Dextrose (Levaquin 250mg) 250 mg in 50 mls @ 100 mls/hr IVPB DAILY [facility] Last Admin: 08/02/17 09:32 Dose: 100 mls/hr Metronidazole (Flagyl) 250 mg in 50 mls @ 100 mls/hr IVPB Q8 [facility] PRN Reason: Protocol Stop: 08/06/17 22:01 Last Admin: 08/02/17 22:01 Dose: 100 mls/hr Insulin Human Lispro (Humalog Low) 0 units SC ACHS [facility] PRN Reason: Protocol Last Admin: 08/02/17 22:48 Dose: Not Given Memantine (Namenda) 10 mg PO DAILY [facility] Last Admin: 08/02/17 09:33 Dose: 10 mg Metoclopramide HCl (Reglan) 10 mg PO 0600,1130,1630,2200 [facility] Stop: 08/03/17 23:59 Last Admin: 08/02/17 22:01 Dose: 10 mg Metoprolol Tartrate (Lopressor) 25 mg PO BRKDIN [facility] Last Admin: 08/02/17 18:59 Dose: 25 mg Promethazine HCl (Phenergan Syrup) 6.25 mg PO Q4H PRN PRN Reason: Cough Last Admin: 08/02/17 22:03 Dose: 6.25 mg Ropinirole HCl (Requip) 0.25 mg PO DAILY [facility] Last Admin: 08/02/17 09:34 Dose: Not Given Tamsulosin HCl (Flomax) 0.4 mg PO DAILY [facility] Last Admin: 08/02/17 09:30 Dose: 0.4 mg - Labs Labs: 08/01/17 06:30 08/01/17 06:30 PT 9.9 SECONDS (9.4-12.5) 07/30/17 13:58 INR 0.87 (0.93-1.08) L 07/30/17 13:58 APTT 32.1 Seconds (25.1-36.5) 07/30/17 13:58 - Constitutional Appears: Non-toxic, No Acute Distress - Eye Exam Eye Exam: Normal appearance - ENT Exam ENT Exam: Mucous Membranes Moist - Respiratory Exam Respiratory Exam: Clear to Ausculation Bilateral. absent: Respiratory Distress - Cardiovascular Exam Cardiovascular Exam: RRR, +S1, +S2 - GI/Abdominal Exam GI & Abdominal Exam: Soft. absent: Distended, Tenderness - Extremities Exam Additional comments: 1+ b/l lower leg edema; - Neurological Exam Neurological Exam: Alert, Awake - Psychiatric Exam Psychiatric exam: Normal Mood. absent: Agitated - Skin Skin Exam: Warm. absent: Cyanosis Assessment and Plan (1) Acute kidney injury Assessment & Plan: Mild VILMA, pre-renal etiology, resolved with IVF; monitor; Status: Resolved (2) CKD (chronic kidney disease) stage 4, GFR 15-29 ml/min Assessment & Plan: Proteinuric kidney disease likely due to DM; stable electrolyte status; will continue to hold sodium bicarb tabs for now; Status: Chronic (3) Hypertensive chronic kidney disease with stage 1 through stage 4 chronic kidney disease, or unspecified chronic kidney disease Assessment & Plan: BP markedly elevated this morning after being on IVF since 2 days; amlodipine restarted; metoprolol given in place of bystolic; hydralazine added by cardio; -will restart chlorthalidone 25 mg daily Status: Acute (4) Anemia of renal disease Assessment & Plan: Hgb at goal of 10-11 g; no need for IV iron or EPO, continue PO iron; Status: Chronic (5) Chronic kidney disease-mineral and bone disorder Assessment & Plan: PTH mildly elevated for CKD IV; vit D 25-OH replete; low/normal Ca; will start calcitriol 0.25 mcg weekly; Status: Chronic
[2017-08-03] MEDS: metroNIDAZOLE IV 250mg/50 ml 250 MG/50 ML BAG IVPB SCH ×3 (05:55→21:49)
[2017-08-03 06:19] LABS: BASO # 0.02 K/mm3 (0.0-2.0); BASO % 0.3 % (0.0-3.0); EOS # 0.2 (0.0-0.7); GRAN # 4.24 (1.4-6.5); GRAN % 55.9 % (50.0-68.0); HEMOGLOBIN 10.9 g/dL (14.0-18.0); LYMPH # 2.3 (1.2-3.4); LYMPH % 29.7 % (22.0-35.0); MEAN CELL VOLUME 85.3 fl (80.0-105.0); MEAN CORPUSCULAR HEMOGLOBIN 29.2 pg (25.0-35.0); MEAN CORPUSCULAR HGB CONC 34.3 g/dl (31.0-37.0); MEAN PLATELET VOLUME 10.1 fl (7.0-11.0); MONO # 0.8 (0.1-0.6); MONO % 11.1 % (1.0-6.0); RBC 3.73 10^6/uL (3.5-6.1); RED CELL DISTRIBUTION WIDTH 16.1 % (11.5-14.5); WHITE BLOOD COUNT 7.6 10^3/ul (4.5-11.0)
[2017-08-03 06:46] LABS: ALB/GLOB RATIO 1.3 (1.1-1.8); ALBUMIN 3.5 g/dL (3.0-4.8); CALCIUM 8.8 mg/dL (8.4-10.5)
--- NOTE | 2017-08-03 07:51 | CP.PCM.PN ---
Subjective - Date & Time of Evaluation Date of Evaluation: 08/03/17 Time of Evaluation: 06:40 - Subjective Subjective: Awake,ambulating to the bathroom,denies chest pain,denies shortness of breath Reason for consultation and follow up:Cardiac evaluation, coronary artery disease, post cardiac stents,abdominal pain for the past few days prior to admission. Seen and examined by me and Dr. Jacobo Objective - Vital Signs/Intake and Output Vital Signs (last 24 hours): Temp Pulse Resp BP Pulse Ox 97.6 F 84 20 144/95 H 100 08/02/17 16:21 08/02/17 16:21 08/02/17 16:21 08/02/17 18:57 08/02/17 16:21 Intake and Output: 08/03/17 08/03/17 06:59 18:59 Intake Total 800 Balance 800 - Medications Medications: Current Medications Acetaminophen (Tylenol 325mg Tab) 650 mg PO Q8H [facility] Last Admin: 08/03/17 04:30 Dose: Not Given Amlodipine Besylate (Norvasc) 10 mg PO DAILY [facility] Last Admin: 08/02/17 09:34 Dose: Not Given Aspirin (Ecotrin) 81 mg PO DAILY [facility] Last Admin: 08/02/17 09:30 Dose: 81 mg Atorvastatin Calcium (Lipitor) 40 mg PO DAILY [facility] Last Admin: 08/02/17 09:32 Dose: 40 mg Benzonatate (Tessalon Perles) 100 mg PO TID [facility] Last Admin: 08/02/17 18:57 Dose: 100 mg Calcitriol (Rocaltrol) 0.25 mcg PO TU [facility] Last Admin: 08/03/17 07:00 Dose: 0.25 mcg Chlorthalidone (Hygroton) 25 mg PO DAILY [facility] Clopidogrel Bisulfate (Plavix) 75 mg PO DAILY [facility] Last Admin: 08/02/17 09:34 Dose: 75 mg Donepezil HCl (Aricept) 10 mg PO DAILY [facility] Last Admin: 08/02/17 09:30 Dose: 10 mg Ezetimibe (Zetia) 10 mg PO DAILY [facility] Last Admin: 08/02/17 09:35 Dose: 10 mg Famotidine (Pepcid) 20 mg PO HS [facility] Last Admin: 08/02/17 22:00 Dose: 20 mg Ferrous Gluconate (Fergon) 324 mg PO BID [facility] Last Admin: 08/02/17 18:58 Dose: 324 mg Gabapentin (Neurontin) 300 mg PO DAILY [facility] PRN Reason: Protocol Last Admin: 08/02/17 09:33 Dose: Not Given Glipizide (Glucotrol) 5 mg PO DAILY [facility] Last Admin: 08/02/17 09:31 Dose: Not Given Hydralazine HCl (Apresoline) 50 mg PO BID [facility] Last Admin: 08/02/17 18:57 Dose: 50 mg Levofloxacin/Dextrose (Levaquin 250mg) 250 mg in 50 mls @ 100 mls/hr IVPB DAILY [facility] Last Admin: 08/02/17 09:32 Dose: 100 mls/hr Metronidazole (Flagyl) 250 mg in 50 mls @ 100 mls/hr IVPB Q8 [facility] PRN Reason: Protocol Stop: 08/06/17 22:01 Last Admin: 08/03/17 05:55 Dose: 100 mls/hr Insulin Human Lispro (Humalog Low) 0 units SC ACHS [facility] PRN Reason: Protocol Last Admin: 08/02/17 22:48 Dose: Not Given Memantine (Namenda) 10 mg PO DAILY [facility] Last Admin: 08/02/17 09:33 Dose: 10 mg Metoclopramide HCl (Reglan) 10 mg PO 0600,1130,1630,2200 [facility] Stop: 08/03/17 23:59 Last Admin: 08/03/17 05:56 Dose: 10 mg Metoprolol Tartrate (Lopressor) 25 mg PO BRKDIN [facility] Last Admin: 08/02/17 18:59 Dose: 25 mg Promethazine HCl (Phenergan Syrup) 6.25 mg PO Q4H PRN PRN Reason: Cough Last Admin: 08/02/17 22:03 Dose: 6.25 mg Ropinirole HCl (Requip) 0.25 mg PO DAILY [facility] Last Admin: 08/02/17 09:34 Dose: Not Given Tamsulosin HCl (Flomax) 0.4 mg PO DAILY [facility] Last Admin: 08/02/17 09:30 Dose: 0.4 mg - Labs Labs: 08/03/17 06:00 08/03/17 06:00 PT 9.9 SECONDS (9.4-12.5) 07/30/17 13:58 INR 0.87 (0.93-1.08) L 07/30/17 13:58 APTT 32.1 Seconds (25.1-36.5) 07/30/17 13:58 - Constitutional Appears: No Acute Distress - Head Exam Head Exam: NORMOCEPHALIC - Eye Exam Eye Exam: Normal appearance - ENT Exam ENT Exam: Mucous Membranes Moist - Respiratory Exam Respiratory Exam: Decreased Breath Sounds, Clear to Ausculation Bilateral, NORMAL BREATHING PATTERN - Cardiovascular Exam Cardiovascular Exam: +S1, +S2 - GI/Abdominal Exam GI & Abdominal Exam: Soft, Normal Bowel Sounds Additional comments: bowel prep for colonoscopy - Extremities Exam Extremities Exam: Normal Capillary Refill - Neurological Exam Neurological Exam: Alert, Awake, Oriented x3 - Psychiatric Exam Psychiatric exam: Normal Affect, Normal Mood - Skin Skin Exam: Intact, Normal Color, Warm Assessment and Plan - Assessment and Plan (Free Text) Assessment: A 62 year old male who came in to the ER due to vague abdominal pain with nausea. He was seen by PMD prior to ER. He has history of coronary artery disease with stents, anemia,chronic renal insufficiency,diabetes mellitus, hypertension,hyperlipidemia, recent pneumonia. Plan: For colonoscopy today In and out of bathroom due to bowel prep GI following up Blood pressure controlled Cardiac status stable On Norvasc 10 mg daily,ASA 81 mg daily,Plavix 75 mg daily, Continue current treatment Continue current medications Will follow up Plan and treatment discussed with Dr. Jacobo
--- NOTE | 2017-08-03 09:07 | PN ---
DATE: 08/02/2017 SUBJECTIVE: Patient is seen and examined at the bedside. Looking comfortable. Abdominal pain is better. Night was unremarkable. No change in the status. Breathing is better. Coughing better. No fever. No chills. No hematuria. No hematochezia. No swelling of the leg. No chest pain. No palpitation. PHYSICAL EXAMINATION: VITAL SIGNS: Temperature 98, heart rate 84, respiratory rate 20, blood pressure 144/95, pulse oximetry 97% on nasal cannula. HEENT: Head, normocephalic, atraumatic. Eyes, PERRLA. Extraocular muscles intact. Conjunctivae clear. Nose patent. Mucous membranes moist. NECK: Supple. No carotid bruit. No JVD or thyromegaly. CHEST: Bilaterally symmetrical. HEART: S1 and S2 positive. LUNGS: Clear to auscultation. ABDOMEN: Soft. Bowel sounds positive. No organomegaly. EXTREMITIES: No edema. No cyanosis. NEUROLOGICAL: The patient is awake and alert. Moving all four extremities. No focal deficit. MEDICATIONS: Hydralazine, Aricept, Ecotrin, ferrous gluconate, Flagyl, Flomax, glipizide, Levaquin, Lipitor, metoprolol, Namenda, Neurontin, Pepcid, Phenergan, Plavix, Reglan, Requip. LABORATORY DATA: Sugar is 123. We do not have recent labs today, but I reviewed old labs. ASSESSMENT AND PLAN: The patient is a 62-year-old male with enteritis, on Flagyl and Levaquin, diabetes melitis, gastroparesis, gastroesophageal reflux disease causing patient coughing, anemia, renal insufficiency. Discussion done with Dr. Bloom. The patient is going for colonoscopy tomorrow. After starting Reglan, patient's cough got better. Seen by Dr. Papo Jensen. Had diabetic neuropathy with wide-based gait. History of pnp for which the patient is on gabapentin. History of coronary artery disease. Now question was that the patient is having tremors. According to Dr. Barros, he do not think he has any form of Parkinson's disease. He has some evidence of cardiac neuropathy, diabetic neuropathy with wide-based gait which is old. The patient is getting Requip for restless leg at night. Needs physical therapy. Continue aspirin. Gastrointestinal and deep venous thrombosis prophylaxis. Repeat labs. We will follow up. Gill Hoffman MD [id number]
[2017-08-03] MEDS: levoFLOXacin 250 mg in D5W 250 MG/50 ML BAG IVPB SCH (09:34)
[2017-08-03] MEDS: Insulin Lispro (humaLOG) LOW Coverage SC SCH ×4 (09:38→22:00)
[2017-08-03] MEDS ORDERED: Dextrose 50% SYRINGE Inj (50 ml) IVP STA (13:40)
[2017-08-03] MEDS ORDERED: Propofol 10 mg/ml Inj (20 ML) ONE (16:25)
[2017-08-03] MEDS ORDERED: Midazolam 2 MG/2 ML VIAL ONE (16:25)
[2017-08-03] MEDS: Sodium Chloride 0.9% 1,000 ML IV SCH (20:35)
--- NOTE | 2017-08-03 20:59 | CP.PCM.PN ---
Subjective - Date & Time of Evaluation Date of Evaluation: 08/03/17 Time of Evaluation: 11:00 - Subjective Subjective: Tolerating liquid diet; abdominal pain improved; Objective - Vital Signs/Intake and Output Vital Signs (last 24 hours): Temp Pulse Resp BP Pulse Ox 98.6 F 62 20 129/88 97 08/03/17 17:32 08/03/17 18:01 08/03/17 18:00 08/03/17 18:00 08/03/17 18:00 Intake and Output: 08/03/17 08/04/17 18:59 06:59 Intake Total 50 Balance 50 - Medications Medications: Current Medications Acetaminophen (Tylenol 325mg Tab) 650 mg PO Q8H COUNTS INCLUDE 234 BEDS AT THE [facility] Last Admin: 08/03/17 20:37 Dose: 650 mg Amlodipine Besylate (Norvasc) 10 mg PO DAILY COUNTS INCLUDE 234 BEDS AT THE [facility] Last Admin: 08/03/17 09:33 Dose: 10 mg Aspirin (Ecotrin) 81 mg PO DAILY COUNTS INCLUDE 234 BEDS AT THE [facility] Last Admin: 08/03/17 09:33 Dose: 81 mg Atorvastatin Calcium (Lipitor) 40 mg PO DAILY COUNTS INCLUDE 234 BEDS AT THE [facility] Last Admin: 08/03/17 09:34 Dose: 40 mg Benzonatate (Tessalon Perles) 100 mg PO TID COUNTS INCLUDE 234 BEDS AT THE [facility] Last Admin: 08/03/17 18:00 Dose: 100 mg Calcitriol (Rocaltrol) 0.25 mcg PO TU COUNTS INCLUDE 234 BEDS AT THE [facility] Last Admin: 08/03/17 07:00 Dose: 0.25 mcg Chlorthalidone (Hygroton) 25 mg PO DAILY COUNTS INCLUDE 234 BEDS AT THE [facility] Last Admin: 08/03/17 09:32 Dose: 25 mg Clopidogrel Bisulfate (Plavix) 75 mg PO DAILY COUNTS INCLUDE 234 BEDS AT THE [facility] Last Admin: 08/03/17 09:35 Dose: Not Given Donepezil HCl (Aricept) 10 mg PO DAILY [facility]S INCLUDE 234 BEDS AT [facility] Last Admin: 08/03/17 09:32 Dose: 10 mg Ezetimibe (Zetia) 10 mg PO DAILY COUNTS INCLUDE 234 BEDS AT [facility] Last Admin: 08/03/17 09:33 Dose: 10 mg Famotidine (Pepcid) 20 mg PO HS COUNTS INCLUDE 234 BEDS AT THE [facility] Last Admin: 08/02/17 22:00 Dose: 20 mg Ferrous Gluconate (Fergon) 324 mg PO BID COUNTS INCLUDE 234 BEDS AT THE [facility] Last Admin: 08/03/17 18:01 Dose: 324 mg Gabapentin (Neurontin) 300 mg PO DAILY [facility]S INCLUDE 234 BEDS AT THE [facility] PRN Reason: Protocol Last Admin: 08/03/17 10:00 Dose: Not Given Glipizide (Glucotrol) 5 mg PO DAILY [facility]S INCLUDE 234 BEDS AT [facility] Last Admin: 08/03/17 09:34 Dose: 5 mg Hydralazine HCl (Apresoline) 50 mg PO BID COUNTS INCLUDE 234 BEDS AT [facility] Last Admin: 08/03/17 18:01 Dose: Not Given Levofloxacin/Dextrose (Levaquin 250mg) 250 mg in 50 mls @ 100 mls/hr IVPB DAILY [facility] Last Admin: 08/03/17 09:34 Dose: 100 mls/hr Metronidazole (Flagyl) 250 mg in 50 mls @ 100 mls/hr IVPB Q8 [facility] PRN Reason: Protocol Stop: 08/06/17 22:01 Last Admin: 08/03/17 14:31 Dose: Not Given Sodium Chloride (Sodium Chloride 0.9%) 1,000 mls @ 100 mls/hr IV .Q10H COUNTS INCLUDE 234 BEDS AT THE [facility] Last Admin: 08/03/17 20:35 Dose: 100 mls/hr Insulin Human Lispro (Humalog Low) 0 units SC ACHS COUNTS INCLUDE 234 BEDS AT THE [facility] PRN Reason: Protocol Last Admin: 08/03/17 16:30 Dose: Not Given Memantine (Namenda) 10 mg PO DAILY COUNTS INCLUDE 234 BEDS AT THE [facility] Last Admin: 08/03/17 09:32 Dose: 10 mg Metoclopramide HCl (Reglan) 10 mg PO 0600,1130,1630,2200 COUNTS INCLUDE 234 BEDS AT THE [facility] Stop: 08/03/17 23:59 Last Admin: 08/03/17 16:30 Dose: Not Given Metoprolol Tartrate (Lopressor) 25 mg PO BRKDIN COUNTS INCLUDE 234 BEDS AT THE [facility] Last Admin: 08/03/17 18:01 Dose: 25 mg Promethazine HCl (Phenergan Syrup) 6.25 mg PO Q4H PRN PRN Reason: Cough Last Admin: 08/02/17 22:03 Dose: 6.25 mg Ropinirole HCl (Requip) 0.25 mg PO DAILY COUNTS INCLUDE 234 BEDS AT THE [facility] Last Admin: 08/03/17 09:32 Dose: 0.25 mg Tamsulosin HCl (Flomax) 0.4 mg PO DAILY COUNTS INCLUDE 234 BEDS AT THE [facility] Last Admin: 08/03/17 09:44 Dose: Not Given - Labs Labs: 08/03/17 06:00 08/03/17 06:00 PT 9.9 SECONDS (9.4-12.5) 07/30/17 13:58 INR 0.87 (0.93-1.08) L 07/30/17 13:58 APTT 32.1 Seconds (25.1-36.5) 07/30/17 13:58 - Constitutional Appears: Non-toxic, No Acute Distress - Eye Exam Eye Exam: Normal appearance - ENT Exam ENT Exam: Mucous Membranes Moist - Respiratory Exam Respiratory Exam: Clear to Ausculation Bilateral. absent: Respiratory Distress - Cardiovascular Exam Cardiovascular Exam: RRR, +S1, +S2 - GI/Abdominal Exam GI & Abdominal Exam: Soft. absent: Distended, Tenderness - Extremities Exam Additional comments: moderate b/l lower leg edema; - Neurological Exam Neurological Exam: Alert, Awake - Psychiatric Exam Psychiatric exam: Normal Mood. absent: Agitated - Skin Skin Exam: Warm. absent: Cyanosis Assessment and Plan (1) CKD (chronic kidney disease) stage 4, GFR 15-29 ml/min Assessment & Plan: Stable renal function; continue to avoid nephrotoxic agents; Status: Chronic (2) Hypertensive chronic kidney disease with stage 1 through stage 4 chronic kidney disease, or unspecified chronic kidney disease Assessment & Plan: BP improved on adding hydralazine, chlorthalidone restarted; continue; Status: Acute (3) Anemia of renal disease Assessment & Plan: Hgb stable, at goal for CKD (10-11g), monitor periodically; Status: Chronic (4) Chronic kidney disease-mineral and bone disorder Assessment & Plan: PTH elevated, started on calcitriol 0.25 mcg weekly, continue; Status: Chronic
[2017-08-03] MEDS: Promethazine 6.25 MG/5 ML CUP PO PRN (23:08)
--- NOTE | 2017-08-03 23:16 | PN ---
DATE: 08/03/2017 PULMONARY PROGRESS NOTE REFERRING PHYSICIAN: Gill Hoffman MD. SUBJECTIVE: He is sitting side of the bed. Family is at bedside. Just came back from colonoscopy. Feels better. No cough. No nausea. No abdominal pain. No leg pain or leg swelling. OBJECTIVE: GENERAL: In no acute distress. VITAL SIGNS: Temperature is 98, heart rate is 62, respiratory rate is 20, blood pressure 129/88, pulse ox 97% on room air. HEENT: Moist mucous membrane. No ulcer or thrush. NECK: Supple. No JVD. LUNGS: Have fair airflow with few rhonchi. HEART: S1 and S2. ABDOMEN: Soft, nontender, no organomegaly. EXTREMITIES: No edema. NEUROLOGIC: Awake, alert, and follows simple command. MEDICATIONS He is on hydralazine 10 mg twice a day, Aricept 10 mg daily, Ecotrin 81 mg daily, ferrous gluconate 324 mg twice a day, Flagyl 250 mg every 8 hours, Flomax 0.4 mg daily, glipizide 5 mg daily, chlorthalidone 25 mg daily, Levaquin 250 mg IV daily, Lipitor 40 mg daily, metoprolol tartrate 25 mg twice a day, Namenda 10 mg daily, gabapentin 300 mg daily, Norvasc 10 mg daily, Pepcid 20 mg at bedtime, promethazine 6.25 mg every 4 hour p.r.n., Plavix 75 mg daily, Reglan 10 mg four times a day, Requip 0.25 mg daily, IV fluid normal saline 100 mL per hour, Tessalon Perles three times, Tylenol p.r.n., Zetia 10 mg daily. LABORATORY DATA: Shows hemoglobin 10.9, hematocrit 31.8, WBC 7.6, platelet is 231. Blood sugar 168. Microbiology: Stool for C. diff has been negative. IMPRESSION AND PLAN: Diabetes; gastroparesis; gastroesophageal reflux disease; probably have a gastroesophageal reflux disease related cough; anemia; renal insufficiency; enteritis, status post colonoscopy, report is pending. Pulmonary point of view, doing well. Keep head at 45 degrees. Gastric prophylaxis, on Reglan. Deep vein thrombosis prophylaxis. Being followed by Neurology, Gastroenterology. Thank you and we will follow with you. Anyi Borja MD [facility] # [id number]
--- NOTE | 2017-08-04 02:33 | PN ---
DATE: 08/03/2017 SUBJECTIVE: The patient is seen and examined at the bedside, looking comfortable. No nausea, vomiting, or diarrhea. No hematuria or hematochezia. No swelling of the legs. No chest pain or palpitations. No headache or dizziness. Went for colonoscopy today, but preparation was very poor, maybe he will go tomorrow. PHYSICAL EXAMINATION: VITAL SIGNS: Temperature 98.6, pulse 62, respiratory rate 20, blood pressure 129/88, and pulse oximetry 97. HEENT: Head: Normocephalic, atraumatic. Eyes: PERRLA. Extraocular muscles are intact. Conjunctivae clear. Nose patent. Mucous membranes are moist. NECK: Supple. No carotid bruits, JVD, or thyromegaly. CHEST: Bilaterally symmetrical. HEART: S1 and S2 positive. LUNGS: Clear to auscultation. ABDOMEN: Soft, bowel sounds present. No organomegaly. EXTREMITIES: No edema. No cyanosis. NEUROLOGIC: The patient is awake and alert. Moving all four extremities. No focal deficits. MEDICATIONS: Tylenol, amlodipine, aspirin, atorvastatin, Tessalon Perles, chlorthalidone. LABORATORY DATA: White blood cells 7.6, hemoglobin 10.9, hematocrit 31.8, platelets 231. Sodium 145, potassium 3.5, BUN 22, creatinine 2.8, glucose 130. ASSESSMENT AND PLAN: Mr. Anyi Herrera is a 62-year-old male with anemia, hypokalemia, renal insufficiency, hyperglycemia, chronic kidney disease stage 4, GFR 15 to 29 mL per minute, it acute on chronic, hypertensive chronic kidney disease stage I chronic kidney disease or unspecified chronic kidney disease as per riding teacher. Seen by the senior ios software engineer. The patient has a history of coronary artery disease. Came with abdominal pain, found out to have enteritis, getting antibiotics, improving. History of hypercholesterolemia, hypertension, history of pneumonia. Went for colonoscopy but preparation was not good. We will get preparation again. Continue Norvasc, aspirin. 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 History of chronic obstructive pulmonary disease, obstructive sleep apnea syndrome. Gastrointestinal and deep venous thrombosis prophylaxes. History of gastroparesis. Repeat labs. We will follow up. Gill Hoffman MD [facility] # [id number] JEMIMA
[2017-08-04] MEDS: metroNIDAZOLE IV 250mg/50 ml 250 MG/50 ML BAG IVPB SCH ×3 (05:15→22:34)
--- NOTE | 2017-08-04 07:33 | CP.PCM.PN ---
Subjective - Date & Time of Evaluation Date of Evaluation: 08/04/17 Time of Evaluation: 06:45 - Subjective Subjective: Awake,lying in bed,denies chest pain,denies shortness of breath, Reason for consultation and follow up:Cardiac evaluation, coronary artery disease, post cardiac stents,abdominal pain for the past few days prior to admission. Seen and examined by me and Dr. Jacobo Objective - Vital Signs/Intake and Output Vital Signs (last 24 hours): Temp Pulse Resp BP Pulse Ox 98.6 F 62 20 129/88 97 08/03/17 17:32 08/03/17 18:01 08/03/17 18:00 08/03/17 18:00 08/03/17 18:00 Intake and Output: 08/04/17 08/04/17 06:59 18:59 Intake Total 1200 120 Balance 1200 120 - Medications Medications: Current Medications Acetaminophen (Tylenol 325mg Tab) 650 mg PO Q8H [facility] Last Admin: 08/04/17 04:00 Dose: Not Given Amlodipine Besylate (Norvasc) 10 mg PO DAILY [facility] Last Admin: 08/03/17 09:33 Dose: 10 mg Aspirin (Ecotrin) 81 mg PO DAILY [facility] Last Admin: 08/03/17 09:33 Dose: 81 mg Atorvastatin Calcium (Lipitor) 40 mg PO DAILY [facility] Last Admin: 08/03/17 09:34 Dose: 40 mg Benzonatate (Tessalon Perles) 100 mg PO TID [facility] Last Admin: 08/03/17 18:00 Dose: 100 mg Calcitriol (Rocaltrol) 0.25 mcg PO TU [facility] Last Admin: 08/03/17 07:00 Dose: 0.25 mcg Chlorthalidone (Hygroton) 25 mg PO DAILY [facility] Last Admin: 08/03/17 09:32 Dose: 25 mg Clopidogrel Bisulfate (Plavix) 75 mg PO DAILY [facility] Last Admin: 08/03/17 09:35 Dose: Not Given Donepezil HCl (Aricept) 10 mg PO DAILY [facility] Last Admin: 08/03/17 09:32 Dose: 10 mg Ezetimibe (Zetia) 10 mg PO DAILY [facility] Last Admin: 08/03/17 09:33 Dose: 10 mg Famotidine (Pepcid) 20 mg PO HS [facility] Last Admin: 08/03/17 21:50 Dose: 20 mg Ferrous Gluconate (Fergon) 324 mg PO BID [facility] Last Admin: 08/03/17 18:01 Dose: 324 mg Gabapentin (Neurontin) 300 mg PO DAILY [facility] PRN Reason: Protocol Last Admin: 08/03/17 10:00 Dose: Not Given Glipizide (Glucotrol) 5 mg PO DAILY [facility] Last Admin: 08/03/17 09:34 Dose: 5 mg Hydralazine HCl (Apresoline) 50 mg PO BID [facility] Last Admin: 08/03/17 18:01 Dose: Not Given Levofloxacin/Dextrose (Levaquin 250mg) 250 mg in 50 mls @ 100 mls/hr IVPB DAILY [facility] Last Admin: 08/03/17 09:34 Dose: 100 mls/hr Metronidazole (Flagyl) 250 mg in 50 mls @ 100 mls/hr IVPB Q8 [facility] PRN Reason: Protocol Stop: 08/06/17 22:01 Last Admin: 08/04/17 05:15 Dose: 100 mls/hr Sodium Chloride (Sodium Chloride 0.9%) 1,000 mls @ 100 mls/hr IV .Q10H [facility] Last Admin: 08/03/17 20:35 Dose: 100 mls/hr Insulin Human Lispro (Humalog Low) 0 units SC ACHS [facility] PRN Reason: Protocol Last Admin: 08/03/17 22:00 Dose: Not Given Memantine (Namenda) 10 mg PO DAILY [facility] Last Admin: 08/03/17 09:32 Dose: 10 mg Metoprolol Tartrate (Lopressor) 25 mg PO BRKDIN [facility] Last Admin: 08/03/17 18:01 Dose: 25 mg Promethazine HCl (Phenergan Syrup) 6.25 mg PO Q4H PRN PRN Reason: Cough Last Admin: 08/03/17 23:08 Dose: 6.25 mg Ropinirole HCl (Requip) 0.25 mg PO DAILY [facility] Last Admin: 08/03/17 09:32 Dose: 0.25 mg Tamsulosin HCl (Flomax) 0.4 mg PO DAILY [facility] Last Admin: 08/03/17 09:44 Dose: Not Given - Labs Labs: 08/03/17 06:00 08/03/17 06:00 PT 9.9 SECONDS (9.4-12.5) 07/30/17 13:58 INR 0.87 (0.93-1.08) L 07/30/17 13:58 APTT 32.1 Seconds (25.1-36.5) 07/30/17 13:58 - Constitutional Appears: No Acute Distress - Head Exam Head Exam: NORMOCEPHALIC - Eye Exam Eye Exam: Normal appearance - ENT Exam ENT Exam: Mucous Membranes Moist - Respiratory Exam Respiratory Exam: Clear to Ausculation Bilateral, NORMAL BREATHING PATTERN - Cardiovascular Exam Cardiovascular Exam: +S1, +S2 - GI/Abdominal Exam GI & Abdominal Exam: Soft, Normal Bowel Sounds - Extremities Exam Extremities Exam: Normal Capillary Refill - Neurological Exam Neurological Exam: Alert, Awake, Oriented x3 - Psychiatric Exam Psychiatric exam: Normal Affect, Normal Mood - Skin Skin Exam: Intact, Normal Color, Warm Assessment and Plan - Assessment and Plan (Free Text) Assessment: A 62 year old male who came in to the ER due to vague abdominal pain with nausea. He was seen by PMD prior to ER. He has history of coronary artery disease with stents, anemia,chronic renal insufficiency,diabetes mellitus, hypertension,hyperlipidemia, recent pneumonia. Plan: Went for colonoscopy yesterday however procedure aborted due to incomplete bowel prep and bradycardia to 43/min. blood pressure was stable at that time. Bradycardia may be vagal, Patient is also on betablocker Will hold Lopressor day prior to procedure if scheduled for colonoscopy again. Will discuss with Dr. Bloom Cardiac status stable On Norvasc 10 mg daily,ASA 81 mg daily,Plavix 75 mg daily,Lopressor 25 mg BID Continue current treatment Continue current medications Will follow up Plan and treatment discussed with Dr. Jacobo
[2017-08-04] MEDS: Insulin Lispro (humaLOG) LOW Coverage SC SCH ×4 (09:14→22:34)
[2017-08-04] MEDS: levoFLOXacin 250 mg in D5W 250 MG/50 ML BAG IVPB SCH (09:37)
[2017-08-04] MEDS: Sodium Chloride 0.9% 1,000 ML IV SCH ×2 (09:40→22:37)
[2017-08-04] MEDS ORDERED: Potassium Chloride 20 mEq ER Tab PO ONE (09:46)
[2017-08-04] MEDS: Promethazine 6.25 MG/5 ML CUP PO PRN ×2 (09:54→22:46)
--- NOTE | 2017-08-04 11:00 | CP.PCM.PN ---
Subjective - Date & Time of Evaluation Date of Evaluation: 08/04/17 Time of Evaluation: 09:00 - Subjective Subjective: PGY-2 GI progress note Patient seen and examined at bedside. No acute distress. Patient states that his abd pain has improved. He is lying in bed in no distress. He denies nausea, vomiting, diarrhea or constipation. He is tolerating liquid diet. Yesterday patient went for endoscopy however was not able to be completed due to hypotension. Patient states that he feels well this mornings. BP is within normal limits. Objective - Vital Signs/Intake and Output Vital Signs (last 24 hours): Temp Pulse Resp BP Pulse Ox 97.3 F L 66 20 132/84 97 08/04/17 06:00 08/04/17 09:38 08/04/17 06:00 08/04/17 09:39 08/04/17 06:00 Intake and Output: 08/04/17 08/04/17 06:59 18:59 Intake Total 1200 120 Balance 1200 120 - Medications Medications: Current Medications Acetaminophen (Tylenol 325mg Tab) 650 mg PO Q8H [facility] Last Admin: 08/04/17 04:00 Dose: Not Given Amlodipine Besylate (Norvasc) 10 mg PO DAILY [facility] Last Admin: 08/04/17 09:39 Dose: 10 mg Aspirin (Ecotrin) 81 mg PO DAILY [facility] Last Admin: 08/04/17 09:35 Dose: 81 mg Atorvastatin Calcium (Lipitor) 40 mg PO DAILY [facility] Last Admin: 08/04/17 09:38 Dose: 40 mg Benzonatate (Tessalon Perles) 100 mg PO TID [facility] Last Admin: 08/04/17 09:41 Dose: 100 mg Calcitriol (Rocaltrol) 0.25 mcg PO TU [facility] Last Admin: 08/03/17 07:00 Dose: 0.25 mcg Chlorthalidone (Hygroton) 25 mg PO DAILY [facility] Last Admin: 08/04/17 09:44 Dose: 25 mg Clopidogrel Bisulfate (Plavix) 75 mg PO DAILY [facility] Last Admin: 08/04/17 09:40 Dose: 75 mg Donepezil HCl (Aricept) 10 mg PO DAILY [facility] Last Admin: 08/04/17 09:35 Dose: 10 mg Ezetimibe (Zetia) 10 mg PO DAILY [facility] Last Admin: 05/09/18 09:41 Dose: 10 mg Famotidine (Pepcid) 20 mg PO HS [facility] Last Admin: 08/03/17 21:50 Dose: 20 mg Ferrous Gluconate (Fergon) 324 mg PO BID [facility] Last Admin: 08/04/17 09:35 Dose: 324 mg Gabapentin (Neurontin) 300 mg PO DAILY [facility] PRN Reason: Protocol Last Admin: 08/04/17 09:39 Dose: Not Given Glipizide (Glucotrol) 5 mg PO DAILY [facility] Last Admin: 08/04/17 09:36 Dose: Not Given Hydralazine HCl (Apresoline) 50 mg PO BID [facility] Last Admin: 08/04/17 09:34 Dose: 50 mg Levofloxacin/Dextrose (Levaquin 250mg) 250 mg in 50 mls @ 100 mls/hr IVPB DAILY [facility] Last Admin: 08/04/17 09:37 Dose: 100 mls/hr Metronidazole (Flagyl) 250 mg in 50 mls @ 100 mls/hr IVPB Q8 [facility] PRN Reason: Protocol Stop: 08/06/17 22:01 Last Admin: 08/04/17 05:15 Dose: 100 mls/hr Sodium Chloride (Sodium Chloride 0.9%) 1,000 mls @ 100 mls/hr IV .Q10H [facility] Last Admin: 08/04/17 09:40 Dose: 100 mls/hr Insulin Human Lispro (Humalog Low) 0 units SC ACHS [facility] PRN Reason: Protocol Last Admin: 08/04/17 09:14 Dose: Not Given Memantine (Namenda) 10 mg PO DAILY [facility] Last Admin: 08/04/17 09:39 Dose: 10 mg Metoprolol Tartrate (Lopressor) 25 mg PO BRKDIN [facility] Last Admin: 08/04/17 09:38 Dose: 25 mg Promethazine HCl (Phenergan Syrup) 6.25 mg PO Q4H PRN PRN Reason: Cough Last Admin: 08/04/17 09:54 Dose: 6.25 mg Ropinirole HCl (Requip) 0.25 mg PO DAILY [facility] Last Admin: 08/04/17 09:40 Dose: Not Given Tamsulosin HCl (Flomax) 0.4 mg PO DAILY [facility] Last Admin: 08/04/17 09:36 Dose: 0.4 mg - Labs Labs: 08/03/17 06:00 08/03/17 06:00 PT 9.9 SECONDS (9.4-12.5) 07/30/17 13:58 INR 0.87 (0.93-1.08) L 07/30/17 13:58 APTT 32.1 Seconds (25.1-36.5) 07/30/17 13:58 - Constitutional Appears: Well, No Acute Distress - Head Exam Head Exam: ATRAUMATIC, NORMOCEPHALIC - Eye Exam Eye Exam: EOMI, Normal appearance - ENT Exam ENT Exam: Mucous Membranes Moist - Respiratory Exam Respiratory Exam: Clear to Ausculation Bilateral, NORMAL BREATHING PATTERN. absent: Rales, Rhonchi, Wheezes - Cardiovascular Exam Cardiovascular Exam: REGULAR RHYTHM, +S1, +S2. absent: Bradycardia, Tachycardia , Murmur - GI/Abdominal Exam GI & Abdominal Exam: Soft, Normal Bowel Sounds. absent: Distended, Firm, Guarding, Tenderness - Extremities Exam Extremities Exam: Normal Inspection - Neurological Exam Neurological Exam: Alert, Awake, Oriented x3 - Skin Skin Exam: Dry, Intact, Normal Color, Warm Assessment and Plan - Assessment and Plan (Free Text) Assessment: 62 year old male who came in to the ER due to vague abdominal pain with nausea found to have possible enteritis. history of coronary artery disease with stents, anemia chronic renal insufficiency HTN Plan: Patient went for endoscopy yesterday, however unable to complete the procedure due to hypotension CT of abdomen- distended fluid filled loops of bowel consistent with enteritis MRCP without contrast showed no abnormalities GI ppx with pepcid continue antibiotics metronidazole and levofloxacin Continue to monitor Patient tolerating clear liquid diet Dr. Bloom spoke with cardiology, will start patient on mild hydration and will schedule for repeat endoscopy on Wednesday case reviewed and discussed with Dr. Bloom
--- NOTE | 2017-08-04 13:18 | PN ---
DATE: 08/04/2017 PULMONARY PROGRESS NOTE REFERRING PHYSICIAN: Gill Hoffman MD. SUBJECTIVE: He is lying in the bed. Head at 45 degrees. Night was unremarkable. Apparently, yesterday, his colonoscopy was not because of vagal episode present. He has mild cough. No nausea. No vomiting. No diarrhea. No leg pain or leg swelling. OBJECTIVE: GENERAL: In no acute distress. VITAL SIGNS: Temperature is 98, heart rate is 66, respiratory rate is 20, blood pressure 132/84, pulse ox 97% on room air. HEENT: Moist mucous membrane. Crowded airway. NECK: Supple. No JVD. LUNGS: Has fair airflow with few rhonchi. HEART: S1 and S2. ABDOMEN: Soft, nontender, no organomegaly. EXTREMITIES: No edema. NEUROLOGIC: Awake, alert, and follows simple command. MEDICATIONS He is on hydralazine 50 mg twice a day, Aricept 10 mg daily, Ecotrin 81 mg daily, ferrous gluconate 325 mg twice a day, Flagyl 250 mg every 8 hours, Flomax 0.4 mg daily, Glucotrol 5 mg daily, Hygroton 25 mg daily, Levaquin 250 mg IV daily, Lipitor 40 mg daily, metoprolol tartrate 25 mg twice a day, Namenda 10 mg daily, gabapentin 300 mg daily, Norvasc 10 mg daily, Pepcid 20 mg at bedtime, promethazine 6.25 mg every 4 hours p.r.n., Plavix 75 mg daily, Requip 0.25 mg daily, Calcitriol 0.25 mg, IV fluid normal saline 100 mL per hour which is discontinued, Tessalon Perles 100 mg three times a day, Tylenol p.r.n., Zetia 10 mg daily. LABORATORY DATA: Shows hemoglobin 10.9, hematocrit 31.8 from yesterday. Blood sugar this morning 221. IMPRESSION AND PLAN: Diabetic-related gastroparesis with gastroesophageal reflux disease and probably have a gastroesophageal reflux disease-related cough; renal insufficiency; enteritis, being treated with antibiotics, attempted colonoscopy, failed. Pulmonary point of view, doing well. Keep head elevated at 45 degrees. Continue to have small meals more frequently. The patient advised about gastroesophageal reflux disease precaution, may use p.r.n. Reglan understanding risk-benefit ratio, gastric prophylaxis. Being followed by Gastroenterology. Fall precaution. Thank you and we will follow with you. Anyi Borja MD cc: MD Nereida (Delete if not dictated.)
--- NOTE | 2017-08-04 22:34 | CP.PCM.PN ---
Subjective - Date & Time of Evaluation Date of Evaluation: 08/04/17 Time of Evaluation: 11:00 - Subjective Subjective: Reportedly hypotensive and bradycardic yesterday at onset of endoscopy which has to be halted; patient unaware of occurrence, denies being symptomatic; tolerating liquid diet; Objective - Vital Signs/Intake and Output Vital Signs (last 24 hours): Temp Pulse Resp BP Pulse Ox 97.6 F 71 20 138/86 98 08/04/17 18:00 08/04/17 18:00 08/04/17 18:00 08/04/17 18:00 08/04/17 18:00 Intake and Output: 08/04/17 08/05/17 18:59 06:59 Intake Total 120 420 Balance 120 420 - Medications Medications: Current Medications Acetaminophen (Tylenol 325mg Tab) 650 mg PO Q8H [facility] Last Admin: 08/04/17 13:14 Dose: 650 mg Amlodipine Besylate (Norvasc) 10 mg PO DAILY [facility] Last Admin: 08/04/17 09:39 Dose: 10 mg Aspirin (Ecotrin) 81 mg PO DAILY [facility] Last Admin: 08/04/17 09:35 Dose: 81 mg Atorvastatin Calcium (Lipitor) 40 mg PO DAILY [facility] Last Admin: 08/04/17 09:38 Dose: 40 mg Benzonatate (Tessalon Perles) 100 mg PO TID [facility] Last Admin: 08/04/17 18:09 Dose: 100 mg Calcitriol (Rocaltrol) 0.25 mcg PO TU [facility] Last Admin: 08/03/17 07:00 Dose: 0.25 mcg Chlorthalidone (Hygroton) 25 mg PO DAILY [facility] Last Admin: 08/04/17 09:44 Dose: 25 mg Clopidogrel Bisulfate (Plavix) 75 mg PO DAILY [facility] Last Admin: 08/04/17 09:40 Dose: 75 mg Donepezil HCl (Aricept) 10 mg PO DAILY [facility] Last Admin: 08/04/17 09:35 Dose: 10 mg Ezetimibe (Zetia) 10 mg PO DAILY [facility] Last Admin: 08/04/17 09:41 Dose: 10 mg Famotidine (Pepcid) 20 mg PO HS [facility] Last Admin: 08/03/17 21:50 Dose: 20 mg Ferrous Gluconate (Fergon) 324 mg PO BID [facility] Last Admin: 08/04/17 18:09 Dose: 324 mg Gabapentin (Neurontin) 300 mg PO DAILY [facility] PRN Reason: Protocol Last Admin: 08/04/17 09:39 Dose: Not Given Glipizide (Glucotrol) 5 mg PO DAILY [facility] Last Admin: 08/04/17 09:36 Dose: Not Given Hydralazine HCl (Apresoline) 50 mg PO BID [facility] Last Admin: 08/04/17 09:34 Dose: 50 mg Levofloxacin/Dextrose (Levaquin 250mg) 250 mg in 50 mls @ 100 mls/hr IVPB DAILY [facility] Last Admin: 08/04/17 09:37 Dose: 100 mls/hr Metronidazole (Flagyl) 250 mg in 50 mls @ 100 mls/hr IVPB Q8 [facility] PRN Reason: Protocol Stop: 08/06/17 22:01 Last Admin: 08/04/17 15:06 Dose: 100 mls/hr Sodium Chloride (Sodium Chloride 0.9%) 1,000 mls @ 100 mls/hr IV .Q10H [facility] Last Admin: 08/04/17 09:40 Dose: 100 mls/hr Insulin Human Lispro (Humalog Low) 0 units SC ACHS [facility] PRN Reason: Protocol Last Admin: 08/04/17 17:43 Dose: Not Given Memantine (Namenda) 10 mg PO DAILY [facility] Last Admin: 08/04/17 09:39 Dose: 10 mg Metoprolol Tartrate (Lopressor) 25 mg PO BRKDIN [facility] Last Admin: 08/04/17 09:38 Dose: 25 mg Promethazine HCl (Phenergan Syrup) 6.25 mg PO Q4H PRN PRN Reason: Cough Last Admin: 08/04/17 09:54 Dose: 6.25 mg Ropinirole HCl (Requip) 0.25 mg PO DAILY [facility] Last Admin: 08/04/17 09:40 Dose: Not Given Tamsulosin HCl (Flomax) 0.4 mg PO DAILY [facility] Last Admin: 08/04/17 09:36 Dose: 0.4 mg - Labs Labs: 08/03/17 06:00 08/03/17 06:00 PT 9.9 SECONDS (9.4-12.5) 07/30/17 13:58 INR 0.87 (0.93-1.08) L 07/30/17 13:58 APTT 32.1 Seconds (25.1-36.5) 07/30/17 13:58 - Constitutional Appears: Non-toxic, No Acute Distress - Eye Exam Eye Exam: absent: Scleral icterus - ENT Exam ENT Exam: Mucous Membranes Moist - Respiratory Exam Respiratory Exam: Clear to Ausculation Bilateral. absent: Respiratory Distress - Cardiovascular Exam Cardiovascular Exam: RRR, +S1, +S2 - GI/Abdominal Exam GI & Abdominal Exam: Soft. absent: Distended, Tenderness - Exam Exam: absent: Bladder Distension - Extremities Exam Additional comments: moderate b/l lower leg edema; - Neurological Exam Neurological Exam: Alert, Awake - Psychiatric Exam Psychiatric exam: absent: Agitated - Skin Skin Exam: Warm. 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; continue to monitor periodically; Status: Chronic (2) Hypertensive chronic kidney disease with stage 1 through stage 4 chronic kidney disease, or unspecified chronic kidney disease Assessment & Plan: Transient hypotension and bradycardia; metoprolol held, holding hydralazine as well (wasn't on it at home with BP controlled); continue chlorthalidone 25 mg daily; Status: Acute (3) Anemia of renal disease Assessment & Plan: Hgb at goal but low iron sat; will start PO iron after endoscopic workup complete; Status: Chronic (4) Chronic kidney disease-mineral and bone disorder Assessment & Plan: Started on calcitriol weekly, continue; Status: Chronic
--- NOTE | 2017-08-05 01:23 | PN ---
DATE: 08/04/2017 SUBJECTIVE: The patient is a 62-year-old male. The patient is seen and examined at the bedside, sitting on the chair. Looks comfortable. Abdominal pain is better. No nausea, vomiting or diarrhea. No hematuria or hematochezia. No fever. No chills. No swelling of the leg. The patient went for endoscopic procedure yesterday by Dr. Bloom, but could not complete may be due to hypertension or may be blood pressure was not good. PHYSICAL EXAMINATION VITAL SIGNS: Temperature 97.3, pulse 66, respiratory rate 20, blood pressure 138/84, pulse oximetry 97. HEENT: Head normocephalic, atraumatic. Eyes PERRLA. Extraocular muscles intact. Conjunctivae clear. Nose patent. Mucous membrane moist. NECK: Supple. No carotid bruit. No JVD or thyromegaly. CHEST: Bilaterally symmetrical. HEART: S1 and S2 positive. LUNGS: Clear to auscultation. ABDOMEN: Soft. Bowel sounds positive. No organomegaly. EXTREMITIES: No edema. No cyanosis. NEUROLOGICAL: The patient is awake and alert. Moving all 4 extremities. No focal deficit. MEDICATIONS: Tylenol, Norvasc, Ecotrin, Lipitor, Tessalon Perles, Calcitrol, chlorthalidone, Plavix, Aricept, Pepcid, Fergon, Neurontin, Glucotrol, hydralazine, Levaquin, Flagyl, NS, insulin, Namenda, Lopressor, Phenergan, Requip, Flomax. LABORATORY DATA: White blood cell is 7.6, hemoglobin 10.9, hematocrit 31.8, platelets 231. Sodium 145, potassium 3.5, BUN 22, creatinine 2.8, glucose 103. ASSESSMENT AND PLAN: Mr. Anyi Herrera is a 62-year-old male with anemia, hypokalemia, renal insufficiency, hyperglycemia, came in ER with severe abdominal pain, found to have enteritis, getting Levaquin, and metronidazole, getting little bit better. Has coronary artery disease with cardiac stented, renal insufficiency, anemia may be multifactorial, but looks like may be due to renal insufficiency. The patient went for endoscopy yesterday, however, could not complete the procedure due to hypotension, now Dr. 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 MRCP without contrast shows no abnormalities. Continue with gastrointestinal prophylaxis with Pepcid. Continue antibiotics on metronidazole and levofloxacin. Monitoring the patient, may be the patient go on Wednesday again for procedure. Meanwhile continue antibiotics, out of bed, physical therapy. We will follow. . Gill Hoffman MD
[2017-08-05] MEDS: metroNIDAZOLE IV 250mg/50 ml 250 MG/50 ML BAG IVPB SCH ×3 (05:34→22:27)
[2017-08-05 07:08] LABS: CALCIUM 8.3 mg/dL (8.4-10.5)
[2017-08-05] MEDS: Insulin Lispro (humaLOG) LOW Coverage SC SCH ×4 (07:20→22:34)
[2017-08-05 07:26] LABS: BASO # 0.01 K/mm3 (0.0-2.0); BASO % 0.2 % (0.0-3.0); EOS # 0.3 (0.0-0.7); EOS % 4.5 % (1.5-5.0); GRAN # 3.1 (1.4-6.5); GRAN % 50.1 % (50.0-68.0); LYMPH # 2.1 (1.2-3.4); LYMPH % 34.1 % (22.0-35.0); MEAN CELL VOLUME 86.6 fl (80.0-105.0); MEAN CORPUSCULAR HEMOGLOBIN 29.1 pg (25.0-35.0); MEAN CORPUSCULAR HGB CONC 33.6 g/dl (31.0-37.0); MEAN PLATELET VOLUME 9.8 fl (7.0-11.0); MONO # 0.7 (0.1-0.6); MONO % 11.1 % (1.0-6.0); RBC 3.44 10^6/uL (3.5-6.1); RED CELL DISTRIBUTION WIDTH 16.2 % (11.5-14.5); WHITE BLOOD COUNT 6.2 10^3/ul (4.5-11.0)
--- NOTE | 2017-08-05 07:59 | CP.PCM.PN ---
Subjective - Date & Time of Evaluation Date of Evaluation: 08/05/17 Time of Evaluation: 07:00 - Subjective Subjective: Easily awaken, lying in bed, denies chest pain,denies shortness of breath, Reason for consultation and follow up:Cardiac evaluation, coronary artery disease, post cardiac stents,abdominal pain for the past few days prior to admission. Seen and examined by me and Dr. Jacobo Objective - Vital Signs/Intake and Output Vital Signs (last 24 hours): Temp Pulse Resp BP Pulse Ox 98 F 73 20 145/96 H 98 08/05/17 07:52 08/05/17 07:52 08/05/17 07:52 08/05/17 07:52 08/05/17 07:52 Intake and Output: 08/05/17 08/05/17 06:59 18:59 Intake Total 540 Balance 540 - Medications Medications: Current Medications Acetaminophen (Tylenol 325mg Tab) 650 mg PO Q8H [facility] Last Admin: 08/05/17 05:32 Dose: 650 mg Amlodipine Besylate (Norvasc) 10 mg PO DAILY [facility] Last Admin: 08/04/17 09:39 Dose: 10 mg Aspirin (Ecotrin) 81 mg PO DAILY [facility] Last Admin: 08/04/17 09:35 Dose: 81 mg Atorvastatin Calcium (Lipitor) 40 mg PO DAILY [facility] Last Admin: 08/04/17 09:38 Dose: 40 mg Benzonatate (Tessalon Perles) 100 mg PO TID [facility] Last Admin: 08/04/17 18:09 Dose: 100 mg Calcitriol (Rocaltrol) 0.25 mcg PO TU [facility] Last Admin: 08/03/17 07:00 Dose: 0.25 mcg Chlorthalidone (Hygroton) 25 mg PO DAILY [facility] Last Admin: 08/04/17 09:44 Dose: 25 mg Clopidogrel Bisulfate (Plavix) 75 mg PO DAILY [facility] Last Admin: 08/04/17 09:40 Dose: 75 mg Donepezil HCl (Aricept) 10 mg PO DAILY [facility] Last Admin: 08/04/17 09:35 Dose: 10 mg Ezetimibe (Zetia) 10 mg PO DAILY [facility] Last Admin: 08/04/17 09:41 Dose: 10 mg Famotidine (Pepcid) 20 mg PO HS [facility] Last Admin: 08/04/17 22:36 Dose: 20 mg Ferrous Gluconate (Fergon) 324 mg PO BID [facility] Last Admin: 08/04/17 18:09 Dose: 324 mg Gabapentin (Neurontin) 300 mg PO DAILY [facility] PRN Reason: Protocol Last Admin: 08/04/17 09:39 Dose: Not Given Glipizide (Glucotrol) 5 mg PO DAILY [facility] Last Admin: 08/04/17 09:36 Dose: Not Given Hydralazine HCl (Apresoline) 50 mg PO BID [facility] Last Admin: 08/04/17 09:34 Dose: 50 mg Levofloxacin/Dextrose (Levaquin 250mg) 250 mg in 50 mls @ 100 mls/hr IVPB DAILY [facility] Last Admin: 08/04/17 09:37 Dose: 100 mls/hr Metronidazole (Flagyl) 250 mg in 50 mls @ 100 mls/hr IVPB Q8 [facility] PRN Reason: Protocol Stop: 08/06/17 22:01 Last Admin: 08/05/17 05:34 Dose: 100 mls/hr Insulin Human Lispro (Humalog Low) 0 units SC ACHS [facility] PRN Reason: Protocol Last Admin: 08/05/17 07:20 Dose: Not Given Memantine (Namenda) 10 mg PO DAILY [facility] Last Admin: 08/04/17 09:39 Dose: 10 mg Metoprolol Tartrate (Lopressor) 25 mg PO BRKDIN [facility] Last Admin: 08/04/17 09:38 Dose: 25 mg Promethazine HCl (Phenergan Syrup) 6.25 mg PO Q4H PRN PRN Reason: Cough Last Admin: 08/04/17 22:46 Dose: 6.25 mg Ropinirole HCl (Requip) 0.25 mg PO DAILY [facility] Last Admin: 08/04/17 09:40 Dose: Not Given Tamsulosin HCl (Flomax) 0.4 mg PO DAILY [facility] Last Admin: 08/04/17 09:36 Dose: 0.4 mg - Labs Labs: 08/05/17 06:00 08/05/17 06:00 PT 9.9 SECONDS (9.4-12.5) 07/30/17 13:58 INR 0.87 (0.93-1.08) L 07/30/17 13:58 APTT 32.1 Seconds (25.1-36.5) 05/04/18 13:58 - Constitutional Appears: No Acute Distress - Head Exam Head Exam: NORMOCEPHALIC - Eye Exam Pupil Exam: NORMAL ACCOMODATION - ENT Exam ENT Exam: Mucous Membranes Moist - Respiratory Exam Respiratory Exam: Clear to Ausculation Bilateral, NORMAL BREATHING PATTERN - Cardiovascular Exam Cardiovascular Exam: +S1, +S2 - GI/Abdominal Exam GI & Abdominal Exam: Soft, Normal Bowel Sounds Additional comments: vague abdominal pain - Extremities Exam Extremities Exam: Normal Capillary Refill - Neurological Exam Neurological Exam: Alert, Awake, Oriented x3 - Psychiatric Exam Psychiatric exam: Normal Affect, Normal Mood - Skin Skin Exam: Intact, Normal Color, Warm Assessment and Plan - Assessment and Plan (Free Text) Assessment: A 62 year old male who came in to the ER due to vague abdominal pain with nausea. He was seen by PMD prior to ER. He has history of coronary artery disease with stents, anemia,chronic renal insufficiency,diabetes mellitus, hypertension,hyperlipidemia, recent pneumonia. Plan: Episode of bradycardia and hypotension during colonoscopy,procedure aborted Lopressor held Will start IV fluids to hydrate patient prior to colonoscopy Started NSS at 100 cc/hr Replenished potassium and magnesium BMP level in am On Norvasc 10 mg daily,ASA 81 mg daily,Plavix 75 mg daily, Continue current treatment Continue current medications Ambulating to bathroom Will follow up Plan and treatment discussed with Dr. Herrera
[2017-08-05] MEDS ORDERED: Magnesium Sulfate 2 GM in Sodium Chloride 0.9% 100 ML IVPB ONE (10:15)
[2017-08-05] MEDS: levoFLOXacin 250 mg in D5W 250 MG/50 ML BAG IVPB SCH (10:17)
[2017-08-05] MEDS ORDERED: Sodium Chloride 0.9% 1,000 ML IV SCH ×2 (10:30→19:33)
[2017-08-05] MEDS ORDERED: Peg-Electrolyte Oral Soln 4L (Golytely) PO ONE (10:56)
--- NOTE | 2017-08-05 11:02 | CP.PCM.PN ---
Subjective - Date & Time of Evaluation Date of Evaluation: 08/05/17 Time of Evaluation: 09:00 - Subjective Subjective: PGY-2 GI progress note Patient seen and examined at bedside. No acute distress. Patient states that his abd pain has improved. He is lying in bed in no distress. He denies nausea, vomiting, diarrhea or constipation. He is tolerating liquid diet, patient had solid food brought to him by family. He is advised to clear liquid diet. Patient is scheduled for endoscopy tomorrow AM. Patient states that he feels well this mornings. BP is within normal limits. Objective - Vital Signs/Intake and Output Vital Signs (last 24 hours): Temp Pulse Resp BP Pulse Ox 98 F 73 20 132/89 98 08/05/17 07:52 08/05/17 07:52 08/05/17 07:52 08/05/17 10:10 08/05/17 07:52 Intake and Output: 08/05/17 08/05/17 06:59 18:59 Intake Total 540 Balance 540 - Medications Medications: Current Medications Acetaminophen (Tylenol 325mg Tab) 650 mg PO Q8H [facility] Last Admin: 08/05/17 05:32 Dose: 650 mg Amlodipine Besylate (Norvasc) 10 mg PO DAILY [facility] Last Admin: 08/05/17 10:10 Dose: 10 mg Aspirin (Ecotrin) 81 mg PO DAILY [facility] Last Admin: 08/05/17 10:10 Dose: 81 mg Atorvastatin Calcium (Lipitor) 40 mg PO DAILY [facility] Last Admin: 08/05/17 10:11 Dose: 40 mg Benzonatate (Tessalon Perles) 100 mg PO TID [facility] Last Admin: 08/05/17 10:10 Dose: 100 mg Calcitriol (Rocaltrol) 0.25 mcg PO TU [facility] Last Admin: 08/03/17 07:00 Dose: 0.25 mcg Chlorthalidone (Hygroton) 25 mg PO DAILY [facility] Last Admin: 08/05/17 10:11 Dose: 25 mg Clopidogrel Bisulfate (Plavix) 75 mg PO DAILY [facility] Last Admin: 08/05/17 10:10 Dose: 75 mg Donepezil HCl (Aricept) 10 mg PO DAILY [facility] Last Admin: 08/05/17 10:10 Dose: 10 mg Ezetimibe (Zetia) 10 mg PO DAILY [facility] Last Admin: 08/05/17 10:10 Dose: 10 mg Famotidine (Pepcid) 20 mg PO HS [facility] Last Admin: 08/04/17 22:36 Dose: 20 mg Ferrous Gluconate (Fergon) 324 mg PO BID [facility] Last Admin: 08/05/17 10:10 Dose: 324 mg Gabapentin (Neurontin) 300 mg PO DAILY [facility] PRN Reason: Protocol Last Admin: 08/05/17 10:11 Dose: 300 mg Glipizide (Glucotrol) 5 mg PO DAILY [facility] Last Admin: 08/05/17 10:11 Dose: 5 mg Hydralazine HCl (Apresoline) 50 mg PO BID [facility] Last Admin: 08/04/17 09:34 Dose: 50 mg Levofloxacin/Dextrose (Levaquin 250mg) 250 mg in 50 mls @ 100 mls/hr IVPB DAILY [facility] Last Admin: 08/05/17 10:17 Dose: 100 mls/hr Metronidazole (Flagyl) 250 mg in 50 mls @ 100 mls/hr IVPB Q8 [facility] PRN Reason: Protocol Stop: 08/06/17 22:01 Last Admin: 08/05/17 05:34 Dose: 100 mls/hr Magnesium Sulfate 2 gm/ Sodium (Chloride) 104 mls @ 52 mls/hr IVPB ONCE ONE Stop: 08/05/17 12:14 Sodium Chloride (Sodium Chloride 0.9%) 1,000 mls @ 100 mls/hr IV .Q10H [facility] Last Admin: 08/05/17 10:25 Dose: 100 mls/hr Insulin Human Lispro (Humalog Low) 0 units SC ACHS [facility] PRN Reason: Protocol Last Admin: 08/05/17 07:20 Dose: Not Given Memantine (Namenda) 10 mg PO DAILY [facility] Last Admin: 08/05/17 10:12 Dose: 10 mg Metoprolol Tartrate (Lopressor) 25 mg PO BRKDIN [facility] Last Admin: 08/04/17 09:38 Dose: 25 mg Polyethylene Glycol/Electrolytes (Golytely) 4,000 ml PO ONCE ONE Stop: 08/05/17 10:57 Promethazine HCl (Phenergan Syrup) 6.25 mg PO Q4H PRN PRN Reason: Cough Last Admin: 08/04/17 22:46 Dose: 6.25 mg Ropinirole HCl (Requip) 0.25 mg PO DAILY [facility] Last Admin: 08/05/17 10:10 Dose: 0.25 mg Tamsulosin HCl (Flomax) 0.4 mg PO DAILY [facility] Last Admin: 08/05/17 10:10 Dose: 0.4 mg - Labs Labs: 08/05/17 06:00 08/05/17 06:00 PT 9.9 SECONDS (9.4-12.5) 07/30/17 13:58 INR 0.87 (0.93-1.08) L 07/30/17 13:58 APTT 32.1 Seconds (25.1-36.5) 07/30/17 13:58 - Constitutional Appears: Well, No Acute Distress - Head Exam Head Exam: ATRAUMATIC, NORMOCEPHALIC - Eye Exam Eye Exam: EOMI, Normal appearance - ENT Exam ENT Exam: Mucous Membranes Moist - Respiratory Exam Respiratory Exam: NORMAL BREATHING PATTERN. absent: Respiratory Distress - Cardiovascular Exam Cardiovascular Exam: REGULAR RHYTHM. absent: Tachycardia, Murmur - GI/Abdominal Exam GI & Abdominal Exam: Soft, Normal Bowel Sounds. absent: Distended, Firm, Guarding, Tenderness, Hernia - Extremities Exam Extremities Exam: Normal Inspection. absent: Pedal Edema, Tenderness - Neurological Exam Neurological Exam: Alert, Awake - Skin Skin Exam: Dry, Intact, Normal Color, Warm Assessment and Plan - Assessment and Plan (Free Text) Assessment: 62 year old male who came in to the ER due to vague abdominal pain with nausea found to have possible enteritis. history of coronary artery disease with stents anemia chronic renal insufficiency HTN Plan: Patient is scheduled for endoscopy tomorrow he is instructed to drink 1 gallon of Golytely Contine clear liquid diet CT of abdomen- distended fluid filled loops of bowel consistent with enteritis MRCP without contrast showed no abnormalities GI ppx with pepcid continue antibiotics metronidazole and levofloxacin Continue to monitor will start IVF for gentle hydration case reviewed and discussed with Dr. Bloom
[2017-08-05] MEDS ORDERED: Potassium Chloride 20 mEq ER Tab PO ONE (11:03)
--- NOTE | 2017-08-05 14:30 | PN ---
DATE: 08/05/2017 PULMONARY PROGRESS NOTE REFERRING PHYSICIAN: Gill Hoffman MD. SUBJECTIVE: The patient is lying in the bed. Head at 45 degrees. Night was unremarkable. Cough is little better. Scheduled for colonoscopy again tomorrow. No nausea. No abdominal pain. No leg pain or leg swelling. OBJECTIVE: GENERAL: In no acute distress. VITAL SIGNS: Temperature is 98, heart rate is 73, respiratory rate is 20, blood pressure 132/89, pulse ox 98% on room air. HEENT: Moist mucous membrane. Crowded airway. NECK: Supple. No JVD. LUNGS: Has fair airflow with rhonchi. HEART: S1 and S2. ABDOMEN: Soft, nontender, no organomegaly. EXTREMITIES: No edema. NEUROLOGIC: Awake, alert, and follows simple command. MEDICATIONS: He is on hydralazine 50 mg twice a day, Aricept 10 mg daily, Ecotrin 81 mg daily, ferrous gluconate 325 mg twice a day, Flagyl 250 mg every 8 hours, Flomax 0.4 mg daily, Glipizide 5 mg daily, insulin coverage, Hygroton 25 mg daily, Levaquin 250 mg daily, Lipitor 40 mg daily, metoprolol tartrate 25 mg twice a day, Namenda 10 mg daily, gabapentin 300 mg daily, Norvasc 10 mg daily, Pepcid 20 mg at bedtime, promethazine 6.25 mg every 4 hours p.r.n., Plavix 75 mg daily, Requip 0.25 mg daily, Calcitriol 0.25 mcg, also on IV fluid normal saline 100 mL per hour, Tessalon Perles 100 mg three times a day, Tylenol p.r.n., Zetia 10 mg daily. LABORATORY DATA: Shows hemoglobin 10, hematocrit 29.8, WBC 6.2, platelet is 219. Sodium 145, potassium 3.4, chloride 110, bicarbonate 21, BUN 17, creatinine 2.6, glucose 178, calcium is 8.3, phosphorus 3.4, magnesium is 1.3. Blood cultures, stool culture that is unremarkable. IMPRESSION AND PLAN: Diabetes-related gastroparesis with gastroesophageal reflux disease, has also gastroesophageal reflux disease-related cough; renal insufficiency, enteritis, being treated with antibiotics. Seen by Gastroenterology. Pulmonary point of view, keep head at 45 degrees. Gastroesophageal reflux disease precaution, gastric prophylaxis, deep venous thrombosis prophylaxis. Replace magnesium. Thank you and we will follow with you. Anyi Borja MD
--- NOTE | 2017-08-05 22:31 | CP.PCM.PN ---
Subjective - Date & Time of Evaluation Date of Evaluation: 08/05/17 Time of Evaluation: 10:00 - Subjective Subjective: Reports no nausea/vomiting or abd pain; no sob; Objective - Vital Signs/Intake and Output Vital Signs (last 24 hours): Temp Pulse Resp BP Pulse Ox 98 F 63 18 158/95 H 99 08/05/17 17:36 08/05/17 17:36 08/05/17 17:36 08/05/17 17:36 08/05/17 17:36 Intake and Output: 08/05/17 08/06/17 18:59 06:59 Intake Total 1380 Balance 1380 - Medications Medications: Current Medications Acetaminophen (Tylenol 325mg Tab) 650 mg PO Q6H PRN PRN Reason: Fever >100.4 F Amlodipine Besylate (Norvasc) 10 mg PO DAILY [facility] Last Admin: 08/05/17 10:10 Dose: 10 mg Aspirin (Ecotrin) 81 mg PO DAILY [facility] Last Admin: 08/05/17 10:10 Dose: 81 mg Atorvastatin Calcium (Lipitor) 40 mg PO DAILY [facility] Last Admin: 08/05/17 10:11 Dose: 40 mg Benzonatate (Tessalon Perles) 100 mg PO TID [facility] Last Admin: 08/05/17 17:37 Dose: 100 mg Calcitriol (Rocaltrol) 0.25 mcg PO TU [facility] Last Admin: 08/03/17 07:00 Dose: 0.25 mcg Chlorthalidone (Hygroton) 25 mg PO DAILY [facility] Last Admin: 08/05/17 10:11 Dose: 25 mg Clopidogrel Bisulfate (Plavix) 75 mg PO DAILY [facility] Last Admin: 08/05/17 10:10 Dose: 75 mg Donepezil HCl (Aricept) 10 mg PO DAILY [facility] Last Admin: 08/05/17 10:10 Dose: 10 mg Ezetimibe (Zetia) 10 mg PO DAILY [facility] Last Admin: 08/05/17 10:10 Dose: 10 mg Famotidine (Pepcid) 20 mg PO HS [facility] Last Admin: 08/05/17 22:29 Dose: 20 mg Ferrous Gluconate (Fergon) 324 mg PO BID [facility] Last Admin: 08/05/17 17:37 Dose: 324 mg Gabapentin (Neurontin) 300 mg PO DAILY [facility] PRN Reason: Protocol Last Admin: 08/05/17 10:11 Dose: 300 mg Glipizide (Glucotrol) 5 mg PO DAILY [facility] Last Admin: 08/05/17 10:11 Dose: 5 mg Hydralazine HCl (Apresoline) 50 mg PO BID [facility] Last Admin: 08/04/17 09:34 Dose: 50 mg Levofloxacin/Dextrose (Levaquin 250mg) 250 mg in 50 mls @ 100 mls/hr IVPB DAILY [facility] Last Admin: 08/05/17 10:17 Dose: 100 mls/hr Metronidazole (Flagyl) 250 mg in 50 mls @ 100 mls/hr IVPB Q8 [facility] PRN Reason: Protocol Stop: 08/06/17 22:01 Last Admin: 08/05/17 22:27 Dose: 100 mls/hr Sodium Chloride (Sodium Chloride 0.9%) 1,000 mls @ 50 mls/hr IV .Q20H [facility] Last Admin: 08/05/17 19:50 Dose: 50 mls/hr Insulin Human Lispro (Humalog Low) 0 units SC ACHS [facility] PRN Reason: Protocol Last Admin: 08/05/17 17:03 Dose: Not Given Memantine (Namenda) 10 mg PO DAILY [facility] Last Admin: 08/05/17 10:12 Dose: 10 mg Metoprolol Tartrate (Lopressor) 25 mg PO BRKDIN [facility] Last Admin: 08/04/17 09:38 Dose: 25 mg Promethazine HCl (Phenergan Syrup) 6.25 mg PO Q4H PRN PRN Reason: Cough Last Admin: 08/04/17 22:46 Dose: 6.25 mg Ropinirole HCl (Requip) 0.25 mg PO DAILY [facility] Last Admin: 08/05/17 10:10 Dose: 0.25 mg Tamsulosin HCl (Flomax) 0.4 mg PO DAILY [facility] Last Admin: 08/05/17 10:10 Dose: 0.4 mg - Labs Labs: 08/05/17 06:00 08/05/17 06:00 PT 9.9 SECONDS (9.4-12.5) 07/30/17 13:58 INR 0.87 (0.93-1.08) L 07/30/17 13:58 APTT 32.1 Seconds (25.1-36.5) 07/30/17 13:58 - Constitutional Appears: Non-toxic, No Acute Distress - Eye Exam Eye Exam: absent: Scleral icterus - ENT Exam ENT Exam: Mucous Membranes Moist - Respiratory Exam Respiratory Exam: Clear to Ausculation Bilateral. absent: Respiratory Distress - Cardiovascular Exam Cardiovascular Exam: RRR, +S1, +S2 - GI/Abdominal Exam GI & Abdominal Exam: Soft. absent: Distended, Tenderness - Extremities Exam Additional comments: improved leg edema; - Neurological Exam Neurological Exam: Alert, Awake - Psychiatric Exam Psychiatric exam: absent: Agitated - Skin Skin Exam: Warm. absent: Cyanosis Assessment and Plan (1) CKD (chronic kidney disease) stage 4, GFR 15-29 ml/min Assessment & Plan: Stable renal function; mild hypokalemia and hypomagnesemia seen in the setting of being on both IVF and diuretics; -supplementing IV Mag 2 g (to run at no more than 1g/hr to avoid renal Mag wasting) and PO KCl 40 meq; Status: Chronic (2) Hypertensive chronic kidney disease with stage 1 through stage 4 chronic kidney disease, or unspecified chronic kidney disease Assessment & Plan: Currently normotensive, amlodipine, hydralazine and metoprolol being held prior to colonoscopy; Status: Acute (3) Anemia of renal disease Assessment & Plan: Hgb fluctuating, may need to give dose of EPO, will monitor; continue PO iron; Status: Chronic (4) Chronic kidney disease-mineral and bone disorder Assessment & Plan: continue weekly calcitriol 0.25 mcg; Status: Chronic
[2017-08-06] MEDS: metroNIDAZOLE IV 250mg/50 ml 250 MG/50 ML BAG IVPB SCH ×3 (05:37→21:40)
[2017-08-06 06:29] LABS: HEMOGLOBIN 11.1 g/dL (14.0-18.0); MEAN CELL VOLUME 85.7 fl (80.0-105.0); MEAN CORPUSCULAR HEMOGLOBIN 28.8 pg (25.0-35.0); MEAN CORPUSCULAR HGB CONC 33.6 g/dl (31.0-37.0); MEAN PLATELET VOLUME 9.5 fl (7.0-11.0); RBC 3.85 10^6/uL (3.5-6.1); RED CELL DISTRIBUTION WIDTH 15.8 % (11.5-14.5); WHITE BLOOD COUNT 7.1 10^3/ul (4.5-11.0)
[2017-08-06 07:12] LABS: BLOOD UREA NITROGEN 13 mg/dL (7-21); CALCIUM 8.8 mg/dL (8.4-10.5); GFR AFRICAN-AMERICAN 30; GFR NON-AFRICAN AMERICAN 25; HDL CHOLESTEROL 30 mg/dL (29-60); LDL CHOLESTEROL < 30 mg/dL (0-129)
--- NOTE | 2017-08-06 08:09 | CP.PCM.PN ---
Subjective - Date & Time of Evaluation Date of Evaluation: 08/06/17 Time of Evaluation: 06:55 - Subjective Subjective: Awake, lying in bed, denies chest pain,denies shortness of breath,going for colonoscopy Reason for consultation and follow up:Cardiac evaluation, coronary artery disease, post cardiac stents,abdominal pain for the past few days prior to admission. Seen and examined by me and Dr. Herrera Objective - Vital Signs/Intake and Output Vital Signs (last 24 hours): Temp Pulse Resp BP Pulse Ox 97.9 F 68 18 131/93 H 99 08/06/17 08:03 08/06/17 08:03 08/06/17 08:03 08/06/17 08:03 08/06/17 08:03 Intake and Output: 08/06/17 08/06/17 06:59 18:59 Intake Total 1380 0 Balance 1380 0 - Medications Medications: Current Medications Acetaminophen (Tylenol 325mg Tab) 650 mg PO Q6H PRN PRN Reason: Fever >100.4 F Amlodipine Besylate (Norvasc) 10 mg PO DAILY [facility] Last Admin: 08/05/17 10:10 Dose: 10 mg Aspirin (Ecotrin) 81 mg PO DAILY [facility] Last Admin: 08/05/17 10:10 Dose: 81 mg Atorvastatin Calcium (Lipitor) 40 mg PO DAILY [facility] Last Admin: 08/05/17 10:11 Dose: 40 mg Calcitriol (Rocaltrol) 0.25 mcg PO TU [facility] Last Admin: 08/03/17 07:00 Dose: 0.25 mcg Chlorthalidone (Hygroton) 25 mg PO DAILY [facility] Last Admin: 08/05/17 10:11 Dose: 25 mg Clopidogrel Bisulfate (Plavix) 75 mg PO DAILY [facility] Last Admin: 08/05/17 10:10 Dose: 75 mg Donepezil HCl (Aricept) 10 mg PO DAILY [facility] Last Admin: 08/05/17 10:10 Dose: 10 mg Ezetimibe (Zetia) 10 mg PO DAILY [facility] Last Admin: 08/05/17 10:10 Dose: 10 mg Famotidine (Pepcid) 20 mg PO HS [facility] Last Admin: 08/05/17 22:29 Dose: 20 mg Ferrous Gluconate (Fergon) 324 mg PO BID [facility] Last Admin: 08/05/17 17:37 Dose: 324 mg Gabapentin (Neurontin) 300 mg PO DAILY [facility] PRN Reason: Protocol Last Admin: 08/05/17 10:11 Dose: 300 mg Glipizide (Glucotrol) 5 mg PO DAILY [facility] Last Admin: 08/05/17 10:11 Dose: 5 mg Hydralazine HCl (Apresoline) 50 mg PO BID [facility] Last Admin: 08/04/17 09:34 Dose: 50 mg Levofloxacin/Dextrose (Levaquin 250mg) 250 mg in 50 mls @ 100 mls/hr IVPB DAILY [facility] Last Admin: 08/05/17 10:17 Dose: 100 mls/hr Metronidazole (Flagyl) 250 mg in 50 mls @ 100 mls/hr IVPB Q8 [facility] PRN Reason: Protocol Stop: 08/06/17 22:01 Last Admin: 08/06/17 05:37 Dose: 100 mls/hr Sodium Chloride (Sodium Chloride 0.9%) 1,000 mls @ 50 mls/hr IV .Q20H [facility] Last Admin: 08/05/17 19:50 Dose: 50 mls/hr Insulin Human Lispro (Humalog Low) 0 units SC ACHS [facility] PRN Reason: Protocol Last Admin: 08/05/17 22:34 Dose: Not Given Memantine (Namenda) 10 mg PO DAILY [facility] Last Admin: 08/05/17 10:12 Dose: 10 mg Metoprolol Tartrate (Lopressor) 25 mg PO BRKDIN [facility] Last Admin: 08/04/17 09:38 Dose: 25 mg Promethazine HCl (Phenergan Syrup) 6.25 mg PO Q4H PRN PRN Reason: Cough Last Admin: 08/04/17 22:46 Dose: 6.25 mg Ropinirole HCl (Requip) 0.25 mg PO DAILY [facility] Last Admin: 08/05/17 10:10 Dose: 0.25 mg Tamsulosin HCl (Flomax) 0.4 mg PO DAILY [facility] Last Admin: 08/05/17 10:10 Dose: 0.4 mg - Labs Labs: 08/06/17 05:30 08/06/17 05:30 PT 9.9 SECONDS (9.4-12.5) 07/30/17 13:58 INR 0.87 (0.93-1.08) L 07/30/17 13:58 APTT 32.1 Seconds (25.1-36.5) 07/30/17 13:58 - Constitutional Appears: No Acute Distress - Head Exam Head Exam: NORMOCEPHALIC - Eye Exam Eye Exam: Normal appearance - ENT Exam ENT Exam: Mucous Membranes Moist - Respiratory Exam Respiratory Exam: Clear to Ausculation Bilateral, NORMAL BREATHING PATTERN - Cardiovascular Exam Cardiovascular Exam: +S1, +S2 - GI/Abdominal Exam GI & Abdominal Exam: Soft, Normal Bowel Sounds - Extremities Exam Extremities Exam: Normal Capillary Refill - Neurological Exam Neurological Exam: Alert, Awake, Oriented x3 - Psychiatric Exam Psychiatric exam: Normal Affect, Normal Mood - Skin Skin Exam: Intact, Normal Color, Warm Assessment and Plan - Assessment and Plan (Free Text) Assessment: 62 year old male who came in to the ER due to vague abdominal pain with nausea. He was seen by PMD prior to ER. He has history of coronary artery disease with stents, anemia,chronic renal insufficiency,diabetes mellitus, hypertension,hyperlipidemia, recent pneumonia. Plan: For colonoscopy today Lopressor held for the procedure IV NSS started for hydration for the colonoscopy On Norvasc 10 mg daily,ASA 81 mg daily,Plavix 75 mg daily, Continue current treatment Continue current medications Ambulating to bathroom Claimed to feel much better from admission Replenish potassium as needed. Will follow up Plan and treatment discussed with Dr. Herrera
[2017-08-06] MEDS ORDERED: Dextrose 5%/0.9% NS 1,000 ML IV SCH (08:30)
[2017-08-06] MEDS: Insulin Lispro (humaLOG) LOW Coverage SC SCH ×4 (08:32→21:43)
--- NOTE | 2017-08-06 08:33 | PN ---
DATE: 08/05/2017 SUBJECTIVE: The patient was seen and examined at the bedside, looking comfortable. No hematuria or hematochezia. No headache. No chest pain. No palpitations. Getting ready for colonoscopy tomorrow. Scheduled for colonoscopy again tomorrow. No nausea or vomiting, but having diarrhea because of preparation. PHYSICAL EXAMINATION: VITAL SIGNS: Temperature 98, heart rate 72, respiratory rate 20, blood pressure 138/89, pulse oximetry 98% on room air. HEENT: Head is normocephalic and atraumatic. Eyes, PERRLA. Extraocular movements are intact. Conjunctivae are clear. Nose is patent. Mucous membranes are moist. NECK: Supple. No carotid bruit, JVD, or thyromegaly. CHEST: Bilaterally symmetrical. HEART: S1 and S2 positive. LUNGS: Clear to auscultation. ABDOMEN: Soft. Bowel sounds are positive. No organomegaly. EXTREMITIES: No edema. No cyanosis. NEUROLOGICAL: The patient is awake and alert. Moving all 4 extremities. No focal deficits. MEDICATIONS: Hydralazine, Aricept, Ecotrin, ferrous sulfate, Flagyl, glipizide, Levaquin, Lipitor, Namenda, gabapentin, Norvasc, Pepcid, promethazine, Plavix, Requip, Calcitrol, Tessalon Perles. LABORATORY DATA: Hemoglobin 10, hematocrit 29.8, white blood cells 6.2, platelets 219. Sodium 149, potassium 3.4, BUN 17, creatinine 2.6. Phosphorus 3.4. Blood cultures and stool cultures are unremarkable. ASSESSMENT AND PLAN: The patient is a 62 -year-old male, has insulin-dependent diabetes melitis, gastroparesis, gastroesophageal reflux disease, renal insufficiency, enteritis - getting metronidazole and Levaquin. GI is on the case. The patient is going for a scope tomorrow. Renal insufficiency. Dr. Vasquez Rosales is on the case. Laminating Machine Operator is on the case. The patient has history of coronary artery disease. Gastrointestinal and deep vein thrombosis prophylaxis. Repeat labs. Physical therapy . Gill Hoffman MD [facility] # [id number] [facility]
[2017-08-06] MEDS: levoFLOXacin 250 mg in D5W 250 MG/50 ML BAG IVPB SCH (10:35)
[2017-08-06] MEDS ORDERED: Etomidate 20 mg/10ml Inj IV ONE (14:26)
[2017-08-06] MEDS ORDERED: Sodium Chloride 0.9% 1,000 ML IV SCH (14:45)
--- NOTE | 2017-08-06 17:48 | CP.PCM.PN ---
Subjective - Date & Time of Evaluation Date of Evaluation: 08/06/17 Time of Evaluation: 11:00 - Subjective Subjective: Patient seen before undergoing colonoscopy later today; denied any complaints; tolerating liquid diet; no sob; Objective - Vital Signs/Intake and Output Vital Signs (last 24 hours): Temp Pulse Resp BP Pulse Ox 97.5 F L 19 L 65 H 147/99 H 97 08/06/17 17:31 08/06/17 17:31 08/06/17 17:31 08/06/17 17:31 08/06/17 17:31 Intake and Output: 08/06/17 08/06/17 06:59 18:59 Intake Total 1380 0 Balance 1380 0 - Medications Medications: Current Medications Acetaminophen (Tylenol 325mg Tab) 650 mg PO Q6H PRN PRN Reason: Fever >100.4 F Amlodipine Besylate (Norvasc) 10 mg PO DAILY [facility] Last Admin: 08/05/17 10:10 Dose: 10 mg Aspirin (Ecotrin) 81 mg PO DAILY [facility] Last Admin: 08/06/17 10:19 Dose: Not Given Atorvastatin Calcium (Lipitor) 40 mg PO DAILY [facility] Last Admin: 08/06/17 10:20 Dose: Not Given Calcitriol (Rocaltrol) 0.25 mcg PO TU [facility] Last Admin: 08/03/17 07:00 Dose: 0.25 mcg Chlorthalidone (Hygroton) 25 mg PO DAILY [facility] Last Admin: 08/06/17 10:20 Dose: Not Given Clopidogrel Bisulfate (Plavix) 75 mg PO DAILY [facility] Last Admin: 08/06/17 10:21 Dose: Not Given Donepezil HCl (Aricept) 10 mg PO DAILY [facility] Last Admin: 08/06/17 10:19 Dose: Not Given Famotidine (Pepcid) 20 mg PO HS [facility] Last Admin: 08/05/17 22:29 Dose: 20 mg Ferrous Gluconate (Fergon) 324 mg PO BID [facility] Last Admin: 08/06/17 10:20 Dose: Not Given Gabapentin (Neurontin) 300 mg PO DAILY [facility] PRN Reason: Protocol Last Admin: 08/06/17 10:21 Dose: Not Given Glipizide (Glucotrol) 5 mg PO DAILY [facility] Last Admin: 08/06/17 10:20 Dose: Not Given Hydralazine HCl (Apresoline) 50 mg PO BID [facility] Last Admin: 08/04/17 09:34 Dose: 50 mg Levofloxacin/Dextrose (Levaquin 250mg) 250 mg in 50 mls @ 100 mls/hr IVPB DAILY [facility] Last Admin: 08/06/17 10:35 Dose: 100 mls/hr Metronidazole (Flagyl) 250 mg in 50 mls @ 100 mls/hr IVPB Q8 [facility] PRN Reason: Protocol Stop: 08/06/17 22:01 Last Admin: 08/06/17 05:37 Dose: 100 mls/hr Dextrose/Sodium Chloride (Dextrose 5%/0.9% Ns 1000 Ml) 1,000 mls @ 50 mls/hr IV .Q20H [facility] Insulin Human Lispro (Humalog Low) 0 units SC ACHS [facility] PRN Reason: Protocol Last Admin: 08/06/17 14:00 Dose: Not Given Memantine (Namenda) 10 mg PO DAILY [facility] Last Admin: 08/06/17 10:20 Dose: Not Given Metoprolol Tartrate (Lopressor) 25 mg PO BRKDIN [facility] Last Admin: 08/04/17 09:38 Dose: 25 mg Promethazine HCl (Phenergan Syrup) 6.25 mg PO Q4H PRN PRN Reason: Cough Last Admin: 08/04/17 22:46 Dose: 6.25 mg Ropinirole HCl (Requip) 0.25 mg PO DAILY [facility] Last Admin: 08/06/17 10:22 Dose: Not Given Tamsulosin HCl (Flomax) 0.4 mg PO DAILY [facility] Last Admin: 08/06/17 10:20 Dose: Not Given - Labs Labs: 08/06/17 05:30 08/06/17 05:30 PT 9.9 SECONDS (9.4-12.5) 07/30/17 13:58 INR 0.87 (0.93-1.08) L 07/30/17 13:58 APTT 32.1 Seconds (25.1-36.5) 07/30/17 13:58 - Constitutional Appears: Non-toxic, No Acute Distress - Eye Exam Eye Exam: absent: Scleral icterus - ENT Exam ENT Exam: Mucous Membranes Moist - Respiratory Exam Respiratory Exam: Clear to Ausculation Bilateral. absent: Respiratory Distress - Cardiovascular Exam Cardiovascular Exam: RRR, +S1, +S2 - Extremities Exam Additional comments: Mild lower leg edema R/L - Neurological Exam Neurological Exam: Alert, Awake - Psychiatric Exam Psychiatric exam: Normal Mood. absent: Agitated - Skin Skin Exam: Warm. absent: Cyanosis Assessment and Plan (1) CKD (chronic kidney disease) stage 4, GFR 15-29 ml/min Assessment & Plan: Stable renal function; electrolyte imbalances (hypokalemia/hypomagnesemia) corrected; stable volume status; continue to monitor; Status: Chronic (2) Hypertensive chronic kidney disease with stage 1 through stage 4 chronic kidney disease, or unspecified chronic kidney disease Assessment & Plan: BP elevated in the setting of getting IVF, will d/c this evening as patient resumes diet; continue chlorthalidone 25 mg daily, will likely need to restart amlodipine by tomorrow; avoid aggressive BP control as inpatient; Status: Acute (3) Anemia of renal disease Assessment & Plan: Hgb stable, continue PO iron; Status: Chronic (4) Chronic kidney disease-mineral and bone disorder Assessment & Plan: Continue calcitriol 0.25 mcg weekly; Status: Chronic
--- NOTE | 2017-08-06 20:14 | PN ---
DATE: 08/06/2017 PULMONARY PROGRESS NOTE REFERRING PHYSICIAN: Gill Hoffman MD SUBJECTIVE: He is lying in the bed, head at 45 degrees. Night was unremarkable. On and off mild cough. No nausea, no vomiting, no diarrhea. No leg pain or leg swelling. OBJECTIVE: GENERAL: In no acute distress. VITAL SIGNS: Temperature is 98, heart rate 94, respiratory rate is 14, blood pressure 159/82, pulse ox 100% on room air. HEENT: Moist mucous membrane. Crowded airway. NECK: Supple. No JVD. LUNGS: Fair airflow with rhonchi. HEART: S1 and S2. ABDOMEN: Soft, nontender, no organomegaly. EXTREMITIES: There is no edema. NEUROLOGIC: Awake, alert, and follows simple command. MEDICATIONS: He is on hydralazine 50 mg twice a day, Aricept 10 mg daily, IV fluid D5 normal 50 mL/hour, Ecotrin 81 mg daily, ferrous gluconate 325 mg twice a day, Flagyl 250 mg every 8 hours, Flomax 0.4 mg daily, glipizide 5 mg daily, insulin coverage, Hygroton 25 mg daily, Levaquin 250 mg daily, Lipitor 40 mg daily, metoprolol tartrate 25 mg twice a day, Namenda 10 mg daily, gabapentin 300 mg daily, Norvasc 10 mg daily, Pepcid 20 mg daily, promethazine 6.25 mg every 4 hours, Plavix 75 mg daily, Requip 0.25 mg daily, IV fluid normal saline 75 mL/hour, Tylenol p.r.n. basis. LABORATORY DATA: Shows hemoglobin 11.1, hematocrit 33, WBC 7.1, and platelet count is 271. Sodium 147, potassium 3.7, chloride 111, bicarbonate 21. BUN 13, creatinine 2.6. Glucose 110. Calcium is 8.8, phosphorus 2.9, magnesium 1.7. Microbiology: Blood culture and stool culture, there is no growth. IMPRESSION AND PLAN: Diabetes related gastroparesis with gastroesophageal reflux disease and gastroesophageal reflux disease related cough, renal insufficiency, enteritis and has been treated for it. Pulmonary point view, doing well. Keep head at 45 degrees. Recommended small p.o. meals with increased frequency. Proton inhibitor. Scheduled for colonoscopy today. Sleep apnea precaution if sedated. Thank you and we will follow with you. Anyi Borja MD [facility] # [id number]
--- NOTE | 2017-08-07 03:57 | PN ---
DATE: 08/06/2017 SUBJECTIVE: Patient was seen and examined at bedside on 08/06/2017, looking comfortable. status post colonoscopy. No hematuria or hematochezia. Tolerating food very well. Abdominal pain is better. PHYSICAL EXAMINATION: VITAL SIGNS: Temperature 98, heart rate 94, respiratory rate 14, blood pressure 150/82. Pulse oximetry 100% on room air. HEENT: Head normocephalic, atraumatic. Eyes, PERRLA. Extraocular muscles intact. Conjunctivae clear. Nose patent. NECK: Supple, no carotid bruit. No JVD or thyromegaly. CHEST: Bilaterally symmetrical. HEART: S1, S2 positive. LUNGS: Clear to auscultation. ABDOMEN: Soft, bowel sounds present. No organomegaly. EXTREMITIES: No edema, no cyanosis. MEDICATIONS: Hydralazine, Aricept, Ecotrin, Glucotrol, Flagyl, Flomax, glipizide, Levaquin, metoprolol, Namenda, gabapentin, Norvasc, Pepcid, Promethazine, Plavix, IV fluids, Tylenol. LABORATORY DATA: Hemoglobin 11.1, hematocrit 33, white blood cells 7.1. platelets 271. Sodium 147, potassium 3.7, BUN 13, creatinine 2.6. Blood cultures and stool cultures have no growth. ASSESSMENT AND PLAN: Mr. Anyi Herrera is a 62-year-old male came with enteritis, gave antibiotics and Flagyl, improved; diabetes mellitus-related gastroparesis; gastroesophageal reflux disease; gastroesophageal reflux disease-related cough; rule out aspiration; renal insufficiency. Today went for colonoscopy shows polyps. Patient was recommended a small pureed meals, proton pump inhibitor, gastrointestinal and deep venous thrombosis prophylaxis, repeat labs. We will follow up. Gill Hoffman MD [facility]
[2017-08-07] MEDS: Insulin Lispro (humaLOG) LOW Coverage SC SCH ×3 (08:01→16:07)
[2017-08-07 08:03] VITALS: PULSE 73; RESP 20; TEMP 98; O2SAT 98
[2017-08-07] MEDS: levoFLOXacin 250 mg in D5W 250 MG/50 ML BAG IVPB SCH (09:32)
[2017-08-07 10:22] VITALS: BP 148/92
--- NOTE | 2017-08-07 18:50 | PN ---
DATE: 08/07/2017 PULMONARY PROGRESS NOTE REFERRING PHYSICIAN: Gill Hoffman MD. SUBJECTIVE: The patient is lying in the bed, head at 45 degrees. Night was unremarkable. Status post colonoscopy, was told was within normal limit. Cough is better. No nausea, no vomiting. No leg pain or leg swelling. PHYSICAL EXAMINATION: GENERAL: In no acute distress. VITAL SIGNS: Temperature is 98, heart rate is 73, respiratory rate is 20, blood pressure 148/92, pulse ox98% on room air. HEENT: Moist mucous membranes. No ulcer or thrush. NECK: Supple. No JVD. LUNGS: Have a fair airflow with rhonchi. HEART: S1 AND s2. ABDOMEN: Soft, nontender. No organomegaly. EXTREMITIES: No edema. NEUROLOGIC: Awake, alert, and follows simple command. MEDICATIONS: He is on Aricept 10 mg daily, Ecotrin 81 mg daily, ferrous sulfate 324 mg twice a day, Flomax 0.4 mg daily, glipizide 5 mg daily, insulin coverage, chlorthalidone 25 mg daily, Lipitor 40 mg daily, Namenda 10 mg daily, gabapentin 300 mg daily, Norvasc 10 mg daily, Pepcid 20 mg at bedtime, promethazine 6.25 mg every 4 hours p.r.n., Plavix 75 mg daily, Requip 0.25 mg daily, calcitriol 0.25 , Tylenol p.r.n. basis. LABORATORY DATA: Shows blood sugar this morning 185. Microbiology, blood culture and stool, all unremarkable. IMPRESSION AND PLAN: Diabetes related gastroparesis, history of gastroesophageal reflux disease, history of gastroesophageal reflux disease related cough, renal insufficiency. Status post enteritis, status for colonoscopy which reported unremarkable, office report still pending though. Pulmonary point of view, he is doing okay. Keep head at 45 degrees. Proton inhibitor, reflux precaution, GI followup. Thank you and we will follow up with you. Anyi Borja MD
--- NOTE | 2017-08-07 23:40 | CP.PCM.PN ---
Subjective - Date & Time of Evaluation Date of Evaluation: 08/07/17 Time of Evaluation: 12:00 - Subjective Subjective: Patient reports feeling well, tolerating diet, no nausea/vomiting or abd pain; Objective - Vital Signs/Intake and Output Vital Signs (last 24 hours): Temp Pulse Resp BP Pulse Ox 98 F 73 20 148/92 H 98 08/07/17 08:03 08/07/17 08:03 08/07/17 08:03 08/07/17 10:21 08/07/17 08:03 - Labs Labs: 08/06/17 05:30 08/06/17 05:30 PT 9.9 SECONDS (9.4-12.5) 07/30/17 13:58 INR 0.87 (0.93-1.08) L 07/30/17 13:58 APTT 32.1 Seconds (25.1-36.5) 07/30/17 13:58 - Constitutional Appears: Non-toxic, No Acute Distress - Eye Exam Eye Exam: absent: Scleral icterus - Respiratory Exam Respiratory Exam: Clear to Ausculation Bilateral. absent: Respiratory Distress - Cardiovascular Exam Cardiovascular Exam: RRR, +S1, +S2 - GI/Abdominal Exam GI & Abdominal Exam: Soft. absent: Distended, Tenderness - Extremities Exam Additional comments: mild lower leg edema - Neurological Exam Neurological Exam: Alert, Awake - Psychiatric Exam Psychiatric exam: Normal Mood. absent: Agitated - Skin Skin Exam: Warm. absent: Cyanosis Assessment and Plan (1) CKD (chronic kidney disease) stage 4, GFR 15-29 ml/min Assessment & Plan: Stable volume and electrolyte status; avoid nephrotoxic meds; Status: Chronic (2) Hypertensive chronic kidney disease with stage 1 through stage 4 chronic kidney disease, or unspecified chronic kidney disease Assessment & Plan: Stable, continue home meds (amlodipine, chlorthalidone and bisoprolol; was not on hydralazine); Status: Chronic (3) Anemia of renal disease Assessment & Plan: Hgb stable, no need for EPO; continue PO iron; Status: Chronic (4) Chronic kidney disease-mineral and bone disorder Assessment & Plan: started on calcitriol 0.25 mcg weekly, continue; Status: Chronic (5) Diabetes Assessment & Plan: Should not be on metformin with eGFR < 30 ml/min, high risk for developing lactic acidosis; Status: Chronic
== END 2017-08-07 16:00 | disposition home or self-care (01) | DRG 74 ==
LOC: ED 12:50 → ERH 16:00 → 3RNO 17:25
PROVIDERS: ADMIT Internal Medicine; ATTEND Internal Medicine
PROC: 0DJD8ZZ Inspection of Lower Intestinal Tract, Via Natural or Artificial Opening Endoscopic (ICD-10-PCS; principal; 2017-08-06 14:45)
DX: E11.43 Type 2 diabetes mellitus with diabetic autonomic (poly)neuropathy (principal); K31.84 Gastroparesis; N17.9 Acute kidney failure, unspecified; N18.4 Chronic kidney disease, stage 4 (severe); E87.2 Acidosis; K52.9 Noninfective gastroenteritis and colitis, unspecified; E83.41 Hypermagnesemia; I25.10 Atherosclerotic heart disease of native coronary artery without angina pectoris; E11.22 Type 2 diabetes mellitus with diabetic chronic kidney disease; E78.5 Hyperlipidemia, unspecified; E86.0 Dehydration; I12.9 Hypertensive chronic kidney disease with stage 1 through stage 4 chronic kidney disease, or unspecified chronic kidney disease; G25.81 Restless legs syndrome; D63.1 Anemia in chronic kidney disease; E78.00 Pure hypercholesterolemia, unspecified; K21.9 Gastro-esophageal reflux disease without esophagitis; E11.65 Type 2 diabetes mellitus with hyperglycemia; H35.52 Pigmentary retinal dystrophy; J44.9 Chronic obstructive pulmonary disease, unspecified; G47.33 Obstructive sleep apnea (adult) (pediatric); E11.42 Type 2 diabetes mellitus with diabetic polyneuropathy; E87.6 Hypokalemia; H54.8 Legal blindness, as defined in USA; M89.9 Disorder of bone, unspecified; I25.2 Old myocardial infarction; Z87.01 Personal history of pneumonia (recurrent); Z95.5 Presence of coronary angioplasty implant and graft; Z79.4 Long term (current) use of insulin

== ENCOUNTER 2018-05-19 07:52 | Outpatient (CLI) | payer MEDICARE | END 2018-05-19 07:53 | disposition home or self-care (01) | LOC: CARDIO 07:52 ==

== ENCOUNTER 2018-07-12 12:11 | Inpatient (IN) | payer MEDICARE, OTHER ==
[2018-07-12 12:27] VITALS: BMI 21.8
--- NOTE | 2018-07-12 12:49 | ED PDOC ---
Arrival/HPI - General Chief Complaint: Abdominal Pain Time Seen by Provider: 07/12/18 12:33 - History of Present Illness Narrative History of Present Illness (Text): 07/12/18 12:45 63 m with hx htn, dm2,cad with stents presents to the ED with chief complaint of persistent epigastric pain for the past two weeks. Patient reports pain is intermittent, associated with fatigue, subjective fevers, chills. Pain is localized, described as achy, no particular exacerbating or relieving factors. Patient also reports increased urine frequency but no dysuria. No vomiting, no bloody stools, no coughing, no chest pain. Patient was sent to the ED after being seen by pcp today. Past Medical History - Past History Past History: No Previous - Infectious Disease Hx of Infectious Diseases: None - Cardiac Hx IN: Yes Hx Hypertension: Yes - Pulmonary Hx Respiratory Disorders: Yes Hx Asthma: No Hx Bronchitis: No Hx Pneumonia: Yes - Neurological Hx Neurological Disorder: No - HEENT Hx HEENT Disorder: Yes Hx Blind: No Hx Cataracts: Yes Hx Deafness: No Hx Difficulty Chewing: No - Renal Hx Renal Disorder: Yes - Endocrine/Metabolic Hx Diabetes Mellitus Type 2: Yes - Hematological/Oncological Hx Blood Disorders: Yes Hx Anemia: Yes - Integumentary Hx Dermatological Disorder: No Hx Basal Cell Carcinoma: No Hx Eczema: No Hx Melanoma: No Hx Psoriasis: No Hx Squamous Cell Carcinoma: No - Musculoskeletal/Rheumatological Hx Musculoskeletal Disorders: No Hx Falls: No - Gastrointestinal Hx Pancreatitis: Yes (07/30/17) - Genitourinary/Gynecological Hx Genitourinary Disorders: No - Psychiatric Hx Psychophysiologic Disorder: No Hx Substance Use: No - Surgical History Hx Cardiac Catheterization: Yes (stents x8) - Anesthesia Hx Anesthesia Reactions: No Hx Malignant Hyperthermia: No - Suicidal Assessment Feels Threatened In Home Enviroment: No Family/Social History Family/Social History: No Known Family HX Smoking Status: Never Smoked Hx Alcohol Use: No Hx Substance Use: No Hx Substance Use Treatment: No Allergies/Home Meds Allergies/Adverse Reactions: Allergies No Known Allergies Allergy (Verified 07/12/18 12:27) Home Medications: Home Meds Medication Instructions Recorded Confirmed Aspirin [Ecotrin] 81 mg PO DAILY 03/31/16 07/30/17 Clopidogrel [Plavix] 75 mg PO DAILY 03/31/16 07/30/17 Ezetimibe [Zetia] 10 mg PO DAILY 03/31/16 07/30/17 Nebivolol [Bystolic] 5 mg PO DAILY 03/31/16 07/30/17 Simvastatin [Zocor] 40 mg PO DAILY 03/31/16 07/30/17 amLODIPine [Norvasc] 10 mg PO DAILY 03/31/16 07/30/17 Donepezil [Aricept] 10 mg PO HS 05/05/17 07/30/17 Gabapentin [Neurontin] 300 mg PO DAILY 05/05/17 07/30/17 rOPINIRole [Requip] 0.25 mg PO DAILY 05/05/17 07/30/17 Chlorthalidone [Hygroton] 25 mg PO QOTHERDAY 06/14/17 07/30/17 Famotidine [Pepcid] 20 mg PO DAILY 06/14/17 07/30/17 Memantine [Namenda] 10 mg PO DAILY 06/14/17 07/30/17 Famotidine [Pepcid] 20 mg PO DAILY 07/30/17 07/30/17 Ferrous Sulfate 325 mg PO BID 07/30/17 07/30/17 GlipiZIDE [Glucotrol] 5 mg PO HS 07/30/17 07/30/17 Sodium Bicarbonate Tab 650 mg PO DAILY 07/30/17 07/30/17 Review of Systems - Physician Review All systems were reviewed & negative as marked: Yes Physical Exam - Physical Exam Narrative Physical Exam (Text): 07/12/18 12:49 Gen: VS reviewed, alert, well developed, well nourished, nontoxic, mild distress Eye: EOMI, PERRL Neck: no JVD, supple, no adenopathy CV: regular rate, regular rhythm, no rubs,no murmur, S1, S2 Pulm: no distress, clear to auscultation, no wheeze, no rhonchi, breath sounds equal, no rales Abd: soft, mild to moderate epigastric tenderness, positive camacho, no rebound, no rigidity Ext: no edema Skin: good color, no rash, no cyanosis Psych: responds appropriately to questions, normal affect Neuro: oriented x3, CN2-12 intact grossly, motor intact, sensation intact Vital Signs Reviewed: Yes Vital Signs Temp Pulse Resp BP Pulse Ox 04/16/19 12:27 97.4 F L 69 18 119/77 99 Temperature: Afebrile Blood Pressure: Normal Pulse: Regular Respiratory Rate: Normal Medical Decision Making ED Course and Treatment: 07/12/18 12:50 patient seen for epigastric pain, fever, chills. will workup for billiary etiology. if US negative will follow up with CT. 07/12/18 15:[address] gomez, patient to be admitted for acute on chronic renal failure. requested consult to dr. marco a ROMAN and dr. cadence landers. patient found to have a relatively low blood glucose and felt a little jittery, IV dextrose as given. 07/12/18 16:18 patient agrees to stay for admission, he was made aware of lab findings. patient has been made aware of necessity for po contrast to maximize CT but it appears he is not drinking the oral contrast because he is concerned of diarrhe. - RAD Interpretation Narrative RAD Interpretations (Text): 07/12/18 16:15 Gallbladder US, reviewed by radiologist, shows: No cholelithiasis or biliary dilatation. Low Voltage Electrician: Radiologist - EKG Interpretation EKG Interpretation (Text): 07/12/18 13:14 ecg my read: nsr at 67 bpm, nml qrs, nml qrs, nml axis, no acute sttw abn Interpreted by ED Physician: Yes Disposition/Present on Arrival - Present on Arrival Any Indicators Present on Arrival: No History of DVT/PE: No History of Uncontrolled Diabetes: No Urinary Catheter: No History of Decub. Ulcer: No History Surgical Site Infection Following: None - Disposition Have Diagnosis and Disposition been Completed?: Yes Diagnosis: Renal insufficiency Disposition: HOSPITALIZED Disposition Time: 15:16 Patient Plan: Admission Patient Problems: Current Active Problems Problem Status Onset Renal insufficiency Acute Condition: STABLE
[2018-07-12 13:31] LABS: VENOUS BLOOD GAS BASE EXCESS 2.2 mmol/L (0.0-2.0); VENOUS BLOOD GAS PO2 23 mm/Hg (30-55); VENOUS BLOOD PH 7.34 (7.32-7.43)
[2018-07-12 13:42] LABS: BASO # 0.01 K/mm3 (0.0-2.0); BASO % 0.2 % (0.0-3.0); EOS # 0.1 (0.0-0.7); EOS % 2.2 % (1.5-5.0); LYMPH # 1.9 (1.2-3.4); LYMPH % 30.1 % (22.0-35.0); MEAN CELL VOLUME 92.4 fl (80.0-105.0); MEAN CORPUSCULAR HGB CONC 32.5 g/dl (31.0-37.0); MEAN PLATELET VOLUME 9.6 fl (7.0-11.0); MONO # 0.5 (0.1-0.6); MONO % 7.6 % (1.0-6.0); RBC 4.33 10^6/uL (3.5-6.1); RED CELL DISTRIBUTION WIDTH 14.6 % (11.5-14.5); WHITE BLOOD COUNT 6.4 10^3/uL (4.5-11.0)
[2018-07-12 13:44] LABS: ALB/GLOB RATIO 1.3 (1.1-1.8); ALBUMIN 4.1 g/dL (3.0-4.8); ALT/SGPT 20 U/L (7-56); AST/SGOT 30 U/L (17-59); BLOOD UREA NITROGEN 64 mg/dL (7-21); CALCIUM 9.3 mg/dL (8.4-10.5); GFR NON-AFRICAN AMERICAN 13; LIPASE 109 U/L (23-300)
[2018-07-12 13:46] LABS: PH,URINE 6.5 (4.7-8.0); URINE BILIRUBIN NEGATIVE (NEGATIVE); URINE BLOOD NEGATIVE (NEGATIVE); URINE GLUCOSE (UA) 100 mg/dL (NEGATIVE); URINE LEUKOCYTE ESTERASE NEGATIVE Leu/uL (NEGATIVE); URINE PROTEIN 100 mg/dL (<30 mg/dL); URINE UROBILINOGEN 0.2 E.U./dL (<1 E.U./dL)
[2018-07-12 13:52] LABS: URINE APPEARANCE CLOUDY (CLEAR); URINE COLOR YELLOW (YELLOW)
[2018-07-12 13:54] LABS: URINE RBC 0 - 2 /hpf (0-2); URINE WBC 0 - 2 /hpf (0-6)
[2018-07-12 13:56] LABS: TROPONIN I < 0.01 ng/mL
[2018-07-12 14:12] LABS: INR 1.04; PARTIAL THROMBOPLASTIN TIME 36.1 Seconds (26.9-38.3); PROTHROMBIN TIME 11.5 SECONDS (9.4-12.5)
--- NOTE | 2018-07-12 14:34 | US ---
Date of service: 07/12/2018 HISTORY: Right upper quadrant pain,? Gallstones COMPARISON: None. TECHNIQUE: Grayscale imaging was performed. FINDINGS: LIVER: Measures 14.7 cm in length. Normal echogenicity of the liver parenchyma. No mass. No intrahepatic bile duct dilatation. Hepatic and portal veins are patent. GALLBLADDER: There are no gallstones, wall thickening or pericholecystic fluid. The sonographic Acosta's sign is negative. COMMON BILE DUCT: Measures 2.1 mm. No stones. No dilatation. PANCREAS: Unremarkable as visualized. No mass. No ductal dilatation. RIGHT KIDNEY: Measures 8.3 cm in length. Normal echogenicity. No calculus, mass, or hydronephrosis. AORTA: No aneurysmal dilatation. IVC: Unremarkable. OTHER FINDINGS: None IMPRESSION: No cholelithiasis or biliary dilatation.
[2018-07-12] MEDS ORDERED: Dextrose 50% SYRINGE Inj (50 ml) ONE (14:43)
[2018-07-12] MEDS ORDERED: Dextrose 50% SYRINGE Inj (50 ml) IV ONE (14:44)
[2018-07-12] MEDS ORDERED: Iohexol 240 (50 ml) ONE (15:31)
--- NOTE | 2018-07-12 18:57 | CT ---
Date of service: 07/12/2018 PROCEDURE: CT Abdomen and Pelvis with contrast HISTORY: Abdominal pain and vomiting. COMPARISON: July 12, 2018. Abdominal ultrasound. 07/30/2017. CT abdomen and pelvis. TECHNIQUE: Oral contrast only. Radiation dose: Total exam DLP = 296.34 mGy-cm. This CT exam was performed using one or more of the following dose reduction techniques: Automated exposure control, adjustment of the mA and/or kV according to patient size, and/or use of iterative reconstruction technique. FINDINGS: LOWER THORAX: Small pulmonary nodules lower lobes. Similar findings identified previously. LIVER: Unremarkable. No gross lesion or ductal dilatation. GALLBLADDER AND BILE DUCTS: Unremarkable. PANCREAS: Unremarkable. No gross lesion or ductal dilatation. SPLEEN: Unremarkable. ADRENALS: Unremarkable. No mass. KIDNEYS AND URETERS: Unremarkable. No hydronephrosis. No solid mass. VASCULATURE: Atherosclerotic calcification and mural plaque present. Findings are seen throughout the aorta which is non aneurysmal. BOWEL: Unremarkable. No obstruction. No gross mural thickening. APPENDIX: No abnormalities to suggest acute appendicitis. No right lower quadrant inflammatory processes identified. PERITONEUM: Unremarkable. No free fluid. No free air. LYMPH NODES: Unremarkable. No enlarged lymph nodes. BLADDER: Unremarkable. REPRODUCTIVE: Unremarkable. BONES: No acute fracture. OTHER FINDINGS: Left inguinal hernia. No evidence of incarceration or obstruction. IMPRESSION: No acute or significant findings related to/ accounting for the clinical presentation. Additional benign and/or incidental findings described above. No significant interval change compared to the prior examination(s).
--- NOTE | 2018-07-12 20:29 | CARD ---
APPROVED REPORT Date of service: 07/12/2018 EKG Measurement Heart [id number] <Conclusion> Normal sinus rhythm Left axis deviation Minimal voltage criteria for LVH, may be normal variant Possible Septal infarct, age undetermined CCR Abnormal ECG
[2018-07-12] MEDS ORDERED: Sodium Chloride 0.9% 1,000 ML IV SCH (21:00)
[2018-07-12 21:46] LABS: HDL CHOLESTEROL 27 mg/dL (29-60); IRON 78 ug/dL (45-180)
[2018-07-12 21:56] LABS: B-TYPE NATRIURETIC PEPTIDE 1290 pg/mL (0-450)
[2018-07-12 21:59] LABS: LDL CHOLESTEROL 48 mg/dL (0-129)
[2018-07-12 22:03] LABS: % IRON SATURATION 23 % (20-55); TOTAL IRON BINDING CAPACITY 335 ug/dL (261-462)
[2018-07-12] MEDS: Insulin Reg-LOW-Coverage SC SCH (22:32)
[2018-07-13 07:05] LABS: MEAN CORPUSCULAR HEMOGLOBIN 29.9 pg (25.0-35.0); MEAN CORPUSCULAR HGB CONC 32.8 g/dl (31.0-37.0); RBC 4.02 10^6/uL (3.5-6.1); RED CELL DISTRIBUTION WIDTH 14.4 % (11.5-14.5); WHITE BLOOD COUNT 6.6 10^3/uL (4.5-11.0)
[2018-07-13 07:23] LABS: CALCIUM 9.1 mg/dL (8.4-10.5)
[2018-07-13] MEDS: Insulin Reg-LOW-Coverage SC SCH ×4 (08:56→21:30)
[2018-07-13 09:01] LABS: PH,URINE 7.5 (4.7-8.0); URINE BILIRUBIN NEGATIVE (NEGATIVE); URINE BLOOD NEGATIVE (NEGATIVE); URINE GLUCOSE (UA) NEGATIVE (NEGATIVE); URINE LEUKOCYTE ESTERASE NEGATIVE Leu/uL (NEGATIVE); URINE PROTEIN 100 mg/dL (<30 mg/dL); URINE UROBILINOGEN 0.2 E.U./dL (<1 E.U./dL)
[2018-07-13 09:10] LABS: URINE APPEARANCE CLEAR (CLEAR); URINE COLOR YELLOW (YELLOW)
[2018-07-13 09:21] LABS: CREATININE,RANDOM URINE 53 mg/dL; TOTAL PROTEIN,RANDOM URINE 80 mg/L
[2018-07-13 09:23] LABS: URINE RBC 0 - 2 /hpf (0-2)
[2018-07-13 09:26] LABS: URINE BACTERIA FEW /hpf
[2018-07-13] MEDS: Non Formulary Medication (Nebivolol [Bystolic] 5 MG) PO SCH (10:11)
--- NOTE | 2018-07-13 11:13 | CP.PCM.CON ---
History of Present Illness - History of Present Illness History of Present Illness: Itzel Alexandra, PGY-1, GI Consult Note for Dr. Bloom 63 year old male with past medical history of hypertension, diabetes mellitus, MA status post 8 stents last performed in 2009, hyperlipidemia presents with subjective fever and dull epigastric pain for 2 weeks. He reports he has not travelled out of the country or experienced any new food recently. The pain is a dull pain worse with palpation. He also reports constant nausea and episodic NBNB vomiting in addition to belching. He reports no change in bowel movements and has one normal bowel movement daily. He also reports shortness of breath, cough, and sore throat at this time. He saw his PCP and was given a Z pack for 5 days without improvement in symptoms. He reports similar abdominal pain 1 year ago and even though there were no acute intraabdominal findings initially, he was later found to have gastroenteritis. Once treated, he was back to baseline. CT scan on this admission shows no acute inflammation of the bowel. PMH: as stated above PSH: nail and plate of right femur, bilateral cataract FMHx: Uncle had HCC at 70 SHx: denies tobacco, alcohol, or recreational drug use Allergies: NKDA Colonoscopy performed last year in 07/2017 Colonoscopy shows small sessile polyp in ascending colon, two polyps in cecum, two sessile, nonbleeding polyps in hepatic flexure, diverticula, internal hemorrhoids. Polypectomy not performed. Endoscopy performed in 04/2017: gastritis, gastroparesis Review of Systems - Review of Systems Review of Systems: except as mentioned in HPI Past Patient History - Infectious Disease Hx of Infectious Diseases: None - Past Social History Smoking Status: Never Smoked - CARDIAC Hx Hypertension: Yes - PULMONARY Hx Respiratory Disorders: Yes Hx Asthma: No Hx Bronchitis: No Hx Pneumonia: Yes - NEUROLOGICAL Hx Neurological Disorder: No - HEENT Hx HEENT Problems: Yes Hx Blind: No Hx Cataracts: Yes Hx Deafness: No Hx Difficulty Chewing: No - RENAL Hx Chronic Kidney Disease: Yes - ENDOCRINE/METABOLIC Hx Diabetes Mellitus Type 2: Yes - HEMATOLOGICAL/ONCOLOGICAL Hx Blood Disorders: Yes Hx Anemia: Yes - INTEGUMENTARY Hx Dermatological Problems: No Hx Basil Cell: No Hx Eczema: No Hx Melanoma: No Hx Psoriasis: No Hx Squamous Cell: No - MUSCULOSKELETAL/RHEUMATOLOGICAL Hx Falls: No - GASTROINTESTINAL Hx Pancreatitis: Yes (07/30/17) - GENITOURINARY/GYNECOLOGICAL Hx Genitourinary Disorders: No - PSYCHIATRIC Hx Psychophysiologic Disorder: No - SURGICAL HISTORY Hx Surgeries: Yes Hx Amputation: No Hx Appendectomy: No Hx Cardiac Catheterization: Yes (stents x8) Hx Cholecystectomy: No Hx Gastric Bypass Surgery: No Hx Hysterectomy: No Hx Joint Replacement: No Hx Kidney Transplant: No Hx Liver Transplant: No Hx Mastectomy: No Hx Musculoskeletal Surgery: Yes (right femur pinning and plate insertion) Hx Open Heart Surgery: No Hx Orthopedic Surgery: No Hx Splenectomy: No Hx Valve Replacement: No - ANESTHESIA Hx Anesthesia Reactions: No Hx Malignant Hyperthermia: No Meds Allergies/Adverse Reactions: Allergies Allergy/AdvReac Type Severity Reaction Status Date / Time No Known Allergies Allergy Verified 07/12/18 12:27 - Medications Medications: Current Medications Amlodipine Besylate (Norvasc) 10 mg PO DAILY [facility] Last Admin: 07/13/18 10:10 Dose: 10 mg Aspirin (Ecotrin) 81 mg PO DAILY [facility] Last Admin: 07/13/18 10:09 Dose: 81 mg Atorvastatin Calcium (Lipitor) 40 mg PO DIN [facility] Calcitriol (Rocaltrol) 0.25 mcg PO MON [facility] Chlorthalidone (Hygroton) 25 mg PO QOTHERDAY [facility] Clopidogrel Bisulfate (Plavix) 75 mg PO DAILY [facility] Last Admin: 07/13/18 10:09 Dose: 75 mg Donepezil HCl (Aricept) 10 mg PO HS [facility] Last Admin: 07/12/18 21:33 Dose: 10 mg Ezetimibe (Zetia) 10 mg PO DAILY [facility] Last Admin: 07/13/18 10:10 Dose: 10 mg Ferrous Sulfate (Feosol) 325 mg PO BID [facility] Last Admin: 07/13/18 10:08 Dose: 325 mg Gabapentin (Neurontin) 300 mg PO DAILY [facility]; Protocol Last Admin: 07/13/18 10:11 Dose: 300 mg Insulin Human Regular (Humulin R Low) 0 units SC [facility]; Protocol Last Admin: 07/13/18 08:56 Dose: Not Given Memantine (Namenda) 10 mg PO DAILY [facility] Last Admin: 07/13/18 10:10 Dose: 10 mg Non-Formulary Medication (Nebivolol [Bystolic]) 5 mg PO DAILY [facility] Last Admin: 07/13/18 10:11 Dose: Not Given Ropinirole HCl (Requip) 0.25 mg PO DAILY [facility] Last Admin: 07/13/18 10:09 Dose: 0.25 mg Physical Exam - Constitutional Appears: Well, Non-toxic, No Acute Distress - Head Exam Head Exam: ATRAUMATIC, NORMAL INSPECTION, NORMOCEPHALIC - Eye Exam Eye Exam: EOMI, PERRL - ENT Exam ENT Exam: Mucous Membranes Moist - Respiratory Exam Respiratory Exam: Clear to Auscultation Bilateral, NORMAL BREATHING PATTERN - Cardiovascular Exam Cardiovascular Exam: REGULAR RHYTHM, RRR, +S1, +S2 - GI/Abdominal Exam GI & Abdominal Exam: Normal Bowel Sounds, Soft, Tenderness. absent: Distended, Rebound - Extremities Exam Extremities exam: Positive for: full ROM, normal inspection. Negative for: tenderness - Neurological Exam Neurological exam: Alert, CN II-XII Intact, Oriented x3 - Skin Skin Exam: Dry, Intact Results - Vital Signs Recent Vital Signs: Last Vital Signs Temp 98.3 F 07/13/18 06:00 Pulse 58 L 07/13/18 06:00 Resp 18 07/13/18 06:00 BP 113/58 L 07/13/18 10:10 Pulse Ox 95 07/13/18 06:00 - Labs Result Diagrams: 07/13/18 06:20 07/13/18 06:20 Labs: Laboratory Results - last 24 hr 07/12/18 07/12/18 07/12/18 13:10 13:10 13:10 WBC 6.4 RBC 4.33 Hgb 13.0 L Hct 40.0 L MCV 92.4 D MCH 30.0 MCHC 32.5 RDW 14.6 H Plt Count 265 MPV 9.6 Neut % (Auto) 59.9 Lymph % (Auto) 30.1 [place] % (Auto) 7.6 H Eos % (Auto) 2.2 Baso % (Auto) 0.2 Lymph # (Auto) 1.9 [place] # (Auto) 0.5 Eos # (Auto) 0.1 Baso # (Auto) 0.01 Absolute Neuts (auto) 3.86 PT 11.5 INR 1.04 APTT 36.1 pO2 VBG pH VBG pCO2 VBG HCO3 VBG Total CO2 VBG O2 Sat (Calc) VBG Base Excess VBG Potassium Glucose Lactate FiO2 Sodium 138 Potassium 4.3 Chloride 102 Carbon Dioxide 28 Anion Gap 12 BUN 64 H Creatinine 4.5 H Est GFR ( Amer) 16 Est GFR (Non-Af Amer) 13 POC Glucose (mg/dL) Random Glucose 92 Calcium 9.3 Phosphorus Iron TIBC % Saturation Total Bilirubin 0.4 AST 30 ALT 20 Alkaline Phosphatase 47 Troponin I < 0.01 NT-Pro-B Natriuret Pep Total Protein 7.2 Albumin 4.1 Globulin 3.1 Albumin/Globulin Ratio 1.3 Triglycerides Cholesterol LDL Cholesterol Direct HDL Cholesterol Lipase 109 TSH 3rd Generation Venous Blood Potassium Urine Color Urine Appearance Urine pH Ur Specific Barry Urine Protein Urine Glucose (UA) Urine Ketones Urine Blood Urine Nitrate Urine Bilirubin Urine Urobilinogen Ur Leukocyte Esterase Urine RBC Urine WBC Ur Epithelial Cells Urine Bacteria Ur Random Creatinine U Random Total Protein 07/12/18 07/12/18 07/12/18 13:10 13:10 13:20 WBC RBC Hgb Hct MCV MCH MCHC RDW Plt Count MPV Neut % (Auto) Lymph % (Auto) [place] % (Auto) Eos % (Auto) Baso % (Auto) Lymph # (Auto) [place] # (Auto) Eos # (Auto) Baso # (Auto) Absolute Neuts (auto) PT INR APTT pO2 23 L VBG pH 7.34 VBG pCO2 54.0 VBG HCO3 29.1 H VBG Total CO2 30.8 H VBG O2 Sat (Calc) 40.2 VBG Base Excess 2.2 H VBG Potassium 4.3 Glucose 93 Lactate 1.0 FiO2 21.0 Sodium 138.0 Potassium Chloride 102.0 Carbon Dioxide Anion Gap BUN Creatinine Est GFR ( Amer) Est GFR (Non-Af Amer) POC Glucose (mg/dL) Random Glucose Calcium Phosphorus Iron 78 TIBC 335 % Saturation 23 Total Bilirubin AST ALT Alkaline Phosphatase Troponin I NT-Pro-B Natriuret Pep 1290 H Total Protein Albumin Globulin Albumin/Globulin Ratio Triglycerides 69 Cholesterol 94 L LDL Cholesterol Direct 48 HDL Cholesterol 27 L Lipase TSH 3rd Generation Venous Blood Potassium 4.3 Urine Color Urine Appearance Urine pH Ur Specific Barry Urine Protein Urine Glucose (UA) Urine Ketones Urine Blood Urine Nitrate Urine Bilirubin Urine Urobilinogen Ur Leukocyte Esterase Urine RBC Urine WBC Ur Epithelial Cells Urine Bacteria Ur Random Creatinine U Random Total Protein 07/12/18 07/12/18 07/12/18 13:29 13:30 14:36 WBC RBC Hgb Hct MCV MCH MCHC RDW Plt Count MPV Neut % (Auto) Lymph % (Auto) [place] % (Auto) Eos % (Auto) Baso % (Auto) Lymph # (Auto) [place] # (Auto) Eos # (Auto) Baso # (Auto) Absolute Neuts (auto) PT INR APTT pO2 VBG pH VBG pCO2 VBG HCO3 VBG Total CO2 VBG O2 Sat (Calc) VBG Base Excess VBG Potassium Glucose Lactate FiO2 Sodium Potassium Chloride Carbon Dioxide Anion Gap BUN Creatinine Est GFR ( Amer) Est GFR (Non-Af Amer) POC Glucose (mg/dL) 99 70 Random Glucose Calcium Phosphorus Iron TIBC % Saturation Total Bilirubin AST ALT Alkaline Phosphatase Troponin I NT-Pro-B Natriuret Pep Total Protein Albumin Globulin Albumin/Globulin Ratio Triglycerides Cholesterol LDL Cholesterol Direct HDL Cholesterol Lipase TSH 3rd Generation Venous Blood Potassium Urine Color Yellow Urine Appearance Cloudy Urine pH 6.5 Ur Specific Barry 1.020 Urine Protein 100 H Urine Glucose (UA) 100 H Urine Ketones Negative Urine Blood Negative Urine Nitrate Negative Urine Bilirubin Negative Urine Urobilinogen 0.2 Ur Leukocyte Esterase Negative Urine RBC 0 - 2 Urine WBC 0 - 2 Ur Epithelial Cells Urine Bacteria Ur Random Creatinine U Random Total Protein 07/12/18 07/13/18 07/13/18 15:30 06:20 06:20 WBC 6.6 RBC 4.02 Hgb 12.0 L Hct 36.6 L MCV 91.0 MCH 29.9 MCHC 32.8 RDW 14.4 Plt Count 249 MPV 10.0 Neut % (Auto) Lymph % (Auto) [place] % (Auto) Eos % (Auto) Baso % (Auto) Lymph # (Auto) [place] # (Auto) Eos # (Auto) Baso # (Auto) Absolute Neuts (auto) PT INR APTT pO2 VBG pH VBG pCO2 VBG HCO3 VBG Total CO2 VBG O2 Sat (Calc) VBG Base Excess VBG Potassium Glucose Lactate FiO2 Sodium 139 Potassium 4.1 Chloride 104 Carbon Dioxide 26 Anion Gap 13 BUN 56 H Creatinine 4.1 H Est GFR ( Amer) 18 Est GFR (Non-Af Amer) 15 POC Glucose (mg/dL) 191 H Random Glucose 72 Calcium 9.1 Phosphorus Iron TIBC % Saturation Total Bilirubin AST ALT Alkaline Phosphatase Troponin I NT-Pro-B Natriuret Pep Total Protein Albumin Globulin Albumin/Globulin Ratio Triglycerides Cholesterol LDL Cholesterol Direct HDL Cholesterol Lipase TSH 3rd Generation Venous Blood Potassium Urine Color Urine Appearance Urine pH Ur Specific Barry Urine Protein Urine Glucose (UA) Urine Ketones Urine Blood Urine Nitrate Urine Bilirubin Urine Urobilinogen Ur Leukocyte Esterase Urine RBC Urine WBC Ur Epithelial Cells Urine Bacteria Ur Random Creatinine U Random Total Protein 07/13/18 07/13/18 07/13/18 06:20 06:20 07:29 WBC RBC Hgb Hct MCV MCH MCHC RDW Plt Count MPV Neut % (Auto) Lymph % (Auto) [place] % (Auto) Eos % (Auto) Baso % (Auto) Lymph # (Auto) [place] # (Auto) Eos # (Auto) Baso # (Auto) Absolute Neuts (auto) PT INR APTT pO2 VBG pH VBG pCO2 VBG HCO3 VBG Total CO2 VBG O2 Sat (Calc) VBG Base Excess VBG Potassium Glucose Lactate FiO2 Sodium Potassium Chloride Carbon Dioxide Anion Gap BUN Creatinine Est GFR ( Amer) Est GFR (Non-Af Amer) POC Glucose (mg/dL) 99 Random Glucose Calcium Phosphorus 4.4 Iron TIBC % Saturation Total Bilirubin AST ALT Alkaline Phosphatase Troponin I NT-Pro-B Natriuret Pep Total Protein Albumin Globulin Albumin/Globulin Ratio Triglycerides Cholesterol LDL Cholesterol Direct HDL Cholesterol Lipase TSH 3rd Generation 2.57 Venous Blood Potassium Urine Color Urine Appearance Urine pH Ur Specific Barry Urine Protein Urine Glucose (UA) Urine Ketones Urine Blood Urine Nitrate Urine Bilirubin Urine Urobilinogen Ur Leukocyte Esterase Urine RBC Urine WBC Ur Epithelial Cells Urine Bacteria Ur Random Creatinine U Random Total Protein 07/13/18 07/13/18 08:35 08:35 WBC RBC Hgb Hct MCV MCH MCHC RDW Plt Count MPV Neut % (Auto) Lymph % (Auto) [place] % (Auto) Eos % (Auto) Baso % (Auto) Lymph # (Auto) [place] # (Auto) Eos # (Auto) Baso # (Auto) Absolute Neuts (auto) PT INR APTT pO2 VBG pH VBG pCO2 VBG HCO3 VBG Total CO2 VBG O2 Sat (Calc) VBG Base Excess VBG Potassium Glucose Lactate FiO2 Sodium Potassium Chloride Carbon Dioxide Anion Gap BUN Creatinine Est GFR ( Amer) Est GFR (Non-Af Amer) POC Glucose (mg/dL) Random Glucose Calcium Phosphorus Iron TIBC % Saturation Total Bilirubin AST ALT Alkaline Phosphatase Troponin I NT-Pro-B Natriuret Pep Total Protein Albumin Globulin Albumin/Globulin Ratio Triglycerides Cholesterol LDL Cholesterol Direct HDL Cholesterol Lipase TSH 3rd Generation Venous Blood Potassium Urine Color Yellow Urine Appearance Clear Urine pH 7.5 Ur Specific Barry 1.010 Urine Protein 100 H Urine Glucose (UA) Negative Urine Ketones Negative Urine Blood Negative Urine Nitrate Negative Urine Bilirubin Negative Urine Urobilinogen 0.2 Ur Leukocyte Esterase Negative Urine RBC 0 - 2 Urine WBC 1 - 3 Ur Epithelial Cells None Urine Bacteria Few Ur Random Creatinine 53 U Random Total Protein 80 Assessment & Plan - Assessment and Plan (Free Text) Assessment: 63 year old male with past medical history of hypertension, diabetes mellitus, MA status post 8 stents, hyperlipidemia presents with subjective fever and dull epigastric pain for 2 weeks. #Rule out gastroenteritis #Rule out pneumonia #Diabetes Mellitus #Hypertension #Hypercholesterolemia Plan: -Abdominal CT and gallbladder ultrasound show no acute etiology of abdominal pain. -UA unremarkable thus doubt UTI -Patient does not fulfill SIRS criteria at this time. No documented fever -Could consider gastroparesis though has been having no change in bowel movements. -Continue patient on clear liquid diet at this time. Will progress diet as tolerated -Will consider obtaining stool studies for possible gastroenteritis -Will consider antibiotics at this time -Continue PPI daily Patient plan discussed with Dr. Bloom - Date & Time Date: 07/13/18 Time: 11:14
--- NOTE | 2018-07-13 12:04 | RAD ---
Date of service: 07/13/2018 HISTORY: cough, shortness of breath, subjective fever COMPARISON: 07/30/2017 TECHNIQUE: 1 view obtained. FINDINGS: LUNGS: No active pulmonary disease. PLEURA: No significant pleural effusion identified, no pneumothorax apparent. CARDIOVASCULAR: Aortic calcification Normal cardiac size. No pulmonary vascular congestion. OSSEOUS STRUCTURES: No significant abnormalities. VISUALIZED UPPER ABDOMEN: Normal. OTHER FINDINGS: None. IMPRESSION: No active disease.
[2018-07-13 13:31] LABS: FOLATE > 20.0 ng/mL
--- NOTE | 2018-07-13 13:41 | CP.PCM.CON ---
<Tin Multani - Last Filed: 07/13/18 13:17> History of Present Illness - History of Present Illness History of Present Illness: Nephrology Consult Note for Dr. Victoriano Multani PGY2 IM Resident Consult Reason: CKD HPI: 63 year old male with past medical history of HTN, DM2, CAD s/p 8 stents, legally blind secondary to bilateral catracts, Chronic Kidney Disease stage IV with palcement of left forearm fistula who presented to [facility] ED with a 2 week history of epigastric pain, recent history of vomiting and poor oral intake. Patient reports he has feelings of fatigue and nausea without vomiting since admission. He reports he is compliant with his medication. He inidcates that his baseline Cr was 4-5 on his most recent blood work this past month. Patient indicates he does make urine and has had a left arm fistula that was placed about 6 months ago. Patient does report sore throat, some chest congestion and difficulty breathing for which can be credited to an URI for which he was being treated with azithromyocin. He denies chest pain, urinary complaints, neurolofical compalints and chills. Patient was evaluated in ED and found to have elevated BUN and Cr. Cr appeared to be at baseline. He had an abdominal/pelvic CT showing no acute inflammation or deformities within kidney. Upon further review patient's kidneys do appear to have characteristics of slight atrophy and deformity likely secondary to chronic kidney disease. PMH: As above PSH: Right Femur fracture repair, Bilateral cataract repair SOCHX: Denies tobacco, ETOH, ID ALL: [id number] MEDS: MAR Reviewed Review of Systems - Review of Systems All systems: reviewed and no additional remarkable complaints except (as mentioned in HPI) Past Patient History - Infectious Disease Hx of Infectious Diseases: None - Past Social History Smoking Status: Never Smoked - CARDIAC Hx Heart Attack: Yes Hx Hypertension: Yes - PULMONARY Hx Respiratory Disorders: Yes Hx Asthma: No Hx Bronchitis: No Hx Pneumonia: Yes - NEUROLOGICAL Hx Neurological Disorder: No - HEENT Hx HEENT Problems: Yes Hx Blind: No Hx Cataracts: Yes Hx Deafness: No Hx Difficulty Chewing: No - RENAL Hx Chronic Kidney Disease: Yes - ENDOCRINE/METABOLIC Hx Diabetes Mellitus Type 2: Yes - HEMATOLOGICAL/ONCOLOGICAL Hx Blood Disorders: Yes Hx Anemia: Yes - INTEGUMENTARY Hx Dermatological Problems: No Hx Basil Cell: No Hx Eczema: No Hx Melanoma: No Hx Psoriasis: No Hx Squamous Cell: No - MUSCULOSKELETAL/RHEUMATOLOGICAL Hx Musculoskeletal Disorders: No Hx Falls: No - GASTROINTESTINAL Hx Pancreatitis: Yes (07/30/17) - GENITOURINARY/GYNECOLOGICAL Hx Genitourinary Disorders: No - PSYCHIATRIC Hx Psychophysiologic Disorder: No Hx Substance Use: No - SURGICAL HISTORY Hx Cardiac Catheterization: Yes (stents x8) - ANESTHESIA Hx Anesthesia Reactions: No Hx Malignant Hyperthermia: No Meds Allergies/Adverse Reactions: Allergies Allergy/AdvReac Type Severity Reaction Status Date / Time No Known Allergies Allergy Verified 07/12/18 12:27 - Medications Medications: Current Medications Amlodipine Besylate (Norvasc) 10 mg PO DAILY [facility] Last Admin: 07/13/18 10:10 Dose: 10 mg Aspirin (Ecotrin) 81 mg PO DAILY [facility] Last Admin: 07/13/18 10:09 Dose: 81 mg Atorvastatin Calcium (Lipitor) 40 mg PO DIN [facility] Calcitriol (Rocaltrol) 0.25 mcg PO MON [facility] Chlorthalidone (Hygroton) 25 mg PO QOTHERDAY [facility] Clopidogrel Bisulfate (Plavix) 75 mg PO DAILY [facility] Last Admin: 07/13/18 10:09 Dose: 75 mg Donepezil HCl (Aricept) 10 mg PO HS [facility] Last Admin: 07/12/18 21:33 Dose: 10 mg Ezetimibe (Zetia) 10 mg PO DAILY [facility] Last Admin: 07/13/18 10:10 Dose: 10 mg Ferrous Sulfate (Feosol) 325 mg PO BID [facility] Last Admin: 07/13/18 10:08 Dose: 325 mg Gabapentin (Neurontin) 300 mg PO DAILY [facility]; Protocol Last Admin: 07/13/18 10:11 Dose: 300 mg Insulin Human Regular (Humulin R Low) 0 units SC [facility]; Protocol Last Admin: 07/13/18 12:24 Dose: 1 unit Memantine (Namenda) 10 mg PO DAILY [facility] Last Admin: 07/13/18 10:10 Dose: 10 mg Non-Formulary Medication (Nebivolol [Bystolic]) 5 mg PO DAILY [facility] Last Admin: 07/13/18 10:11 Dose: Not Given Pantoprazole Sodium (Protonix Ec Tab) 40 mg PO 0600 [facility] Ropinirole HCl (Requip) 0.25 mg PO DAILY [facility] Last Admin: 07/13/18 10:09 Dose: 0.25 mg Physical Exam - Constitutional Appears: No Acute Distress - Head Exam Head Exam: ATRAUMATIC, NORMOCEPHALIC - Eye Exam Eye Exam: EOMI, PERRL - ENT Exam ENT Exam: Mucous Membranes Dry - Neck Exam Neck exam: Positive for: Full Rom - Respiratory Exam Respiratory Exam: Clear to Auscultation Bilateral, NORMAL BREATHING PATTERN. absent: Rales, Rhonchi, Wheezes - Cardiovascular Exam Cardiovascular Exam: REGULAR RHYTHM, +S1, +S2 - GI/Abdominal Exam GI & Abdominal Exam: Normal Bowel Sounds, Soft. absent: Firm, Guarding - Extremities Exam Extremities exam: Positive for: full ROM, normal inspection. Negative for: calf tenderness, pedal edema Additional comments: left forearm with palpable bruit and auditory thrill - Expanded Upper Extremities Exam Left Elbow exam: full ROM Forearm Wrist exam: full ROM - Neurological Exam Neurological exam: Alert, CN II-XII Intact, Normal Gait, Oriented x3 Additional comments: motor and sensory grossly intact - Psychiatric Exam Psychiatric exam: Normal Affect, Normal Mood - Skin Skin Exam: Dry, Warm Results - Vital Signs Recent Vital Signs: Last Vital Signs Temp 98.3 F 07/13/18 06:00 Pulse 58 L 07/13/18 06:00 Resp 18 07/13/18 06:00 BP 113/58 L 07/13/18 10:10 Pulse Ox 95 07/13/18 06:00 - Labs Result Diagrams: 07/13/18 06:20 07/13/18 06:20 Labs: Laboratory Results - last 24 hr 07/12/18 07/12/18 07/12/18 13:10 13:10 13:10 WBC 6.4 RBC 4.33 Hgb 13.0 L Hct 40.0 L MCV 92.4 D MCH 30.0 MCHC 32.5 RDW 14.6 H Plt Count 265 MPV 9.6 Neut % (Auto) 59.9 Lymph % (Auto) 30.1 [place] % (Auto) 7.6 H Eos % (Auto) 2.2 Baso % (Auto) 0.2 Lymph # (Auto) 1.9 [place] # (Auto) 0.5 Eos # (Auto) 0.1 Baso # (Auto) 0.01 Absolute Neuts (auto) 3.86 PT 11.5 INR 1.04 APTT 36.1 pO2 VBG pH VBG pCO2 VBG HCO3 VBG Total CO2 VBG O2 Sat (Calc) VBG Base Excess VBG Potassium Glucose Lactate FiO2 Sodium 138 Potassium 4.3 Chloride 102 Carbon Dioxide 28 Anion Gap 12 BUN 64 H Creatinine 4.5 H Est GFR ( Amer) 16 Est GFR (Non-Af Amer) 13 POC Glucose (mg/dL) Random Glucose 92 Hemoglobin A1c Calcium 9.3 Phosphorus Iron TIBC % Saturation Total Bilirubin 0.4 AST 30 ALT 20 Alkaline Phosphatase 47 Troponin I < 0.01 NT-Pro-B Natriuret Pep Total Protein 7.2 Albumin 4.1 Globulin 3.1 Albumin/Globulin Ratio 1.3 Triglycerides Cholesterol LDL Cholesterol Direct HDL Cholesterol Lipase 109 TSH 3rd Generation Venous Blood Potassium Urine Color Urine Appearance Urine pH Ur Specific [place] Urine Protein Urine Glucose (UA) Urine Ketones Urine Blood Urine Nitrate Urine Bilirubin Urine Urobilinogen Ur Leukocyte Esterase Urine RBC Urine WBC Ur Epithelial Cells Urine Bacteria Ur Random Creatinine U Random Total Protein 07/12/18 07/12/18 07/12/18 13:10 13:10 13:10 WBC RBC Hgb Hct MCV MCH MCHC RDW Plt Count MPV Neut % (Auto) Lymph % (Auto) [place] % (Auto) Eos % (Auto) Baso % (Auto) Lymph # (Auto) [place] # (Auto) Eos # (Auto) Baso # (Auto) Absolute Neuts (auto) PT INR APTT pO2 VBG pH VBG pCO2 VBG HCO3 VBG Total CO2 VBG O2 Sat (Calc) VBG Base Excess VBG Potassium Glucose Lactate FiO2 Sodium Potassium Chloride Carbon Dioxide Anion Gap BUN Creatinine Est GFR ( Amer) Est GFR (Non-Af Amer) POC Glucose (mg/dL) Random Glucose Hemoglobin A1c 6.9 H Calcium Phosphorus Iron 78 TIBC 335 % Saturation 23 Total Bilirubin AST ALT Alkaline Phosphatase Troponin I NT-Pro-B Natriuret Pep 1290 H Total Protein Albumin Globulin Albumin/Globulin Ratio Triglycerides 69 Cholesterol 94 L LDL Cholesterol Direct 48 HDL Cholesterol 27 L Lipase TSH 3rd Generation Venous Blood Potassium Urine Color Urine Appearance Urine pH Ur Specific [place] Urine Protein Urine Glucose (UA) Urine Ketones Urine Blood Urine Nitrate Urine Bilirubin Urine Urobilinogen Ur Leukocyte Esterase Urine RBC Urine WBC Ur Epithelial Cells Urine Bacteria Ur Random Creatinine U Random Total Protein 07/12/18 07/12/18 07/12/18 13:20 13:29 13:30 WBC RBC Hgb Hct MCV MCH MCHC RDW Plt Count MPV Neut % (Auto) Lymph % (Auto) [place] % (Auto) Eos % (Auto) Baso % (Auto) Lymph # (Auto) [place] # (Auto) Eos # (Auto) Baso # (Auto) Absolute Neuts (auto) PT INR APTT pO2 23 L VBG pH 7.34 VBG pCO2 54.0 VBG HCO3 29.1 H VBG Total CO2 30.8 H VBG O2 Sat (Calc) 40.2 VBG Base Excess 2.2 H VBG Potassium 4.3 Glucose 93 Lactate 1.0 FiO2 21.0 Sodium 138.0 Potassium Chloride 102.0 Carbon Dioxide Anion Gap BUN Creatinine Est GFR ( Amer) Est GFR (Non-Af Amer) POC Glucose (mg/dL) 99 Random Glucose Hemoglobin A1c Calcium Phosphorus Iron TIBC % Saturation Total Bilirubin AST ALT Alkaline Phosphatase Troponin I NT-Pro-B Natriuret Pep Total Protein Albumin Globulin Albumin/Globulin Ratio Triglycerides Cholesterol LDL Cholesterol Direct HDL Cholesterol Lipase TSH 3rd Generation Venous Blood Potassium 4.3 Urine Color Yellow Urine Appearance Cloudy Urine pH 6.5 Ur Specific [place] 1.020 Urine Protein 100 H Urine Glucose (UA) 100 H Urine Ketones Negative Urine Blood Negative Urine Nitrate Negative Urine Bilirubin Negative Urine Urobilinogen 0.2 Ur Leukocyte Esterase Negative Urine RBC 0 - 2 Urine WBC 0 - 2 Ur Epithelial Cells Urine Bacteria Ur Random Creatinine U Random Total Protein 07/12/18 07/12/18 07/13/18 14:36 15:30 06:20 WBC 6.6 RBC 4.02 Hgb 12.0 L Hct 36.6 L MCV 91.0 MCH 29.9 MCHC 32.8 RDW 14.4 Plt Count 249 MPV 10.0 Neut % (Auto) Lymph % (Auto) [place] % (Auto) Eos % (Auto) Baso % (Auto) Lymph # (Auto) [place] # (Auto) Eos # (Auto) Baso # (Auto) Absolute Neuts (auto) PT INR APTT pO2 VBG pH VBG pCO2 VBG HCO3 VBG Total CO2 VBG O2 Sat (Calc) VBG Base Excess VBG Potassium Glucose Lactate FiO2 Sodium Potassium Chloride Carbon Dioxide Anion Gap BUN Creatinine Est GFR ( Amer) Est GFR (Non-Af Amer) POC Glucose (mg/dL) 70 191 H Random Glucose Hemoglobin A1c Calcium Phosphorus Iron TIBC % Saturation Total Bilirubin AST ALT Alkaline Phosphatase Troponin I NT-Pro-B Natriuret Pep Total Protein Albumin Globulin Albumin/Globulin Ratio Triglycerides Cholesterol LDL Cholesterol Direct HDL Cholesterol Lipase TSH 3rd Generation Venous Blood Potassium Urine Color Urine Appearance Urine pH Ur Specific [place] Urine Protein Urine Glucose (UA) Urine Ketones Urine Blood Urine Nitrate Urine Bilirubin Urine Urobilinogen Ur Leukocyte Esterase Urine RBC Urine WBC Ur Epithelial Cells Urine Bacteria Ur Random Creatinine U Random Total Protein 07/13/18 07/13/18 07/13/18 06:20 06:20 06:20 WBC RBC Hgb Hct MCV MCH MCHC RDW Plt Count MPV Neut % (Auto) Lymph % (Auto) [place] % (Auto) Eos % (Auto) Baso % (Auto) Lymph # (Auto) [place] # (Auto) Eos # (Auto) Baso # (Auto) Absolute Neuts (auto) PT INR APTT pO2 VBG pH VBG pCO2 VBG HCO3 VBG Total CO2 VBG O2 Sat (Calc) VBG Base Excess VBG Potassium Glucose Lactate FiO2 Sodium 139 Potassium 4.1 Chloride 104 Carbon Dioxide 26 Anion Gap 13 BUN 56 H Creatinine 4.1 H Est GFR ( Amer) 18 Est GFR (Non-Af Amer) 15 POC Glucose (mg/dL) Random Glucose 72 Hemoglobin A1c Calcium 9.1 Phosphorus 4.4 Iron TIBC % Saturation Total Bilirubin AST ALT Alkaline Phosphatase Troponin I NT-Pro-B Natriuret Pep Total Protein Albumin Globulin Albumin/Globulin Ratio Triglycerides Cholesterol LDL Cholesterol Direct HDL Cholesterol Lipase TSH 3rd Generation 2.57 Venous Blood Potassium Urine Color Urine Appearance Urine pH Ur Specific [place] Urine Protein Urine Glucose (UA) Urine Ketones Urine Blood Urine Nitrate Urine Bilirubin Urine Urobilinogen Ur Leukocyte Esterase Urine RBC Urine WBC Ur Epithelial Cells Urine Bacteria Ur Random Creatinine U Random Total Protein 07/13/18 07/13/18 07/13/18 07:29 08:35 08:35 WBC RBC Hgb Hct MCV MCH MCHC RDW Plt Count MPV Neut % (Auto) Lymph % (Auto) [place] % (Auto) Eos % (Auto) Baso % (Auto) Lymph # (Auto) [place] # (Auto) Eos # (Auto) Baso # (Auto) Absolute Neuts (auto) PT INR APTT pO2 VBG pH VBG pCO2 VBG HCO3 VBG Total CO2 VBG O2 Sat (Calc) VBG Base Excess VBG Potassium Glucose Lactate FiO2 Sodium Potassium Chloride Carbon Dioxide Anion Gap BUN Creatinine Est GFR ( Amer) Est GFR (Non-Af Amer) POC Glucose (mg/dL) 99 Random Glucose Hemoglobin A1c Calcium Phosphorus Iron TIBC % Saturation Total Bilirubin AST ALT Alkaline Phosphatase Troponin I NT-Pro-B Natriuret Pep Total Protein Albumin Globulin Albumin/Globulin Ratio Triglycerides Cholesterol LDL Cholesterol Direct HDL Cholesterol Lipase TSH 3rd Generation Venous Blood Potassium Urine Color Yellow Urine Appearance Clear Urine pH 7.5 Ur Specific [place] 1.010 Urine Protein 100 H Urine Glucose (UA) Negative Urine Ketones Negative Urine Blood Negative Urine Nitrate Negative Urine Bilirubin Negative Urine Urobilinogen 0.2 Ur Leukocyte Esterase Negative Urine RBC 0 - 2 Urine WBC 1 - 3 Ur Epithelial Cells None Urine Bacteria Few Ur Random Creatinine 53 U Random Total Protein 80 07/13/18 11:27 WBC RBC Hgb Hct MCV MCH MCHC RDW Plt Count MPV Neut % (Auto) Lymph % (Auto) [place] % (Auto) Eos % (Auto) Baso % (Auto) Lymph # (Auto) [place] # (Auto) Eos # (Auto) Baso # (Auto) Absolute Neuts (auto) PT INR APTT pO2 VBG pH VBG pCO2 VBG HCO3 VBG Total CO2 VBG O2 Sat (Calc) VBG Base Excess VBG Potassium Glucose Lactate FiO2 Sodium Potassium Chloride Carbon Dioxide Anion Gap BUN Creatinine Est GFR ( Amer) Est GFR (Non-Af Amer) POC Glucose (mg/dL) 161 H Random Glucose Hemoglobin A1c Calcium Phosphorus Iron TIBC % Saturation Total Bilirubin AST ALT Alkaline Phosphatase Troponin I NT-Pro-B Natriuret Pep Total Protein Albumin Globulin Albumin/Globulin Ratio Triglycerides Cholesterol LDL Cholesterol Direct HDL Cholesterol Lipase TSH 3rd Generation Venous Blood Potassium Urine Color Urine Appearance Urine pH Ur Specific [place] Urine Protein Urine Glucose (UA) Urine Ketones Urine Blood Urine Nitrate Urine Bilirubin Urine Urobilinogen Ur Leukocyte Esterase Urine RBC Urine WBC Ur Epithelial Cells Urine Bacteria Ur Random Creatinine U Random Total Protein Assessment & Plan - Assessment and Plan (Free Text) Assessment: -VILMA in setting of CKD stage IV -CKD stage IV likely secondary to combination of diabetic nephropathy and long standing HTN -Anemia of Chronic disease -Secondary Hyperparathyroidism -CAD -HTN -DM -HLD Patient renal function shown to be elevated on admission secondary to poor oral intake, GI losses and chronic multifactorial issues. His renal function has shown some improvement. He will continue to be on IV fluids. Continue to monitor electrolytes and replete as necessary. Maintain euvolemia, normotensive BP, and avoid nephrotoxic agents. Patient with AV fistula for past 6 months. Will continue to monitor urine output and renal function as IV fluid replacement. No need for acute dialysis at this time. Continue calcitriol for secondary hyperpathyroidism. Patient to continue ASA, Plavix, atorvastatin for CAD and HLD. Continue norvasc and bystolic for BP control. Continue ferrous sulfate for iron deficiency. Continue statin and zetia for HLD. Continue Insulin sliding sca le for DM2 control. <Jose Pastrana S - Last Filed: 07/13/18 15:07> Meds - Medications Medications: Current Medications Amlodipine Besylate (Norvasc) 10 mg PO DAILY [facility] Last Admin: 07/13/18 10:10 Dose: 10 mg Aspirin (Ecotrin) 81 mg PO DAILY [facility] Last Admin: 07/13/18 10:09 Dose: 81 mg Atorvastatin Calcium (Lipitor) 40 mg PO DIN [facility] Calcitriol (Rocaltrol) 0.25 mcg PO MON [facility] Chlorthalidone (Hygroton) 25 mg PO QOTHERDAY [facility] Clopidogrel Bisulfate (Plavix) 75 mg PO DAILY [facility] Last Admin: 07/13/18 10:09 Dose: 75 mg Donepezil HCl (Aricept) 10 mg PO HS [facility] Last Admin: 07/12/18 21:33 Dose: 10 mg Ezetimibe (Zetia) 10 mg PO DAILY [facility] Last Admin: 07/13/18 10:10 Dose: 10 mg Ferrous Sulfate (Feosol) 325 mg PO BID [facility] Last Admin: 07/13/18 10:08 Dose: 325 mg Gabapentin (Neurontin) 300 mg PO DAILY [facility]; Protocol Last Admin: 07/13/18 10:11 Dose: 300 mg Insulin Human Regular (Humulin R Low) 0 units SC [facility]; Protocol Last Admin: 07/13/18 12:24 Dose: 1 unit Memantine (Namenda) 10 mg PO DAILY [facility] Last Admin: 07/13/18 10:10 Dose: 10 mg Non-Formulary Medication (Nebivolol [Bystolic]) 5 mg PO DAILY [facility] Last Admin: 07/13/18 10:11 Dose: Not Given Pantoprazole Sodium (Protonix Ec Tab) 40 mg PO 0600 [facility] Ropinirole HCl (Requip) 0.25 mg PO DAILY [facility] Last Admin: 07/13/18 10:09 Dose: 0.25 mg Results - Vital Signs Recent Vital Signs: Last Vital Signs Temp 98.3 F 07/13/18 06:00 Pulse 58 L 07/13/18 06:00 Resp 18 07/13/18 06:00 BP 113/58 L 07/13/18 10:10 Pulse Ox 95 07/13/18 06:00 - Labs Result Diagrams: 07/13/18 06:20 07/13/18 06:20 Labs: Laboratory Results - last 24 hr 07/12/18 07/12/18 07/12/18 13:10 13:10 13:10 WBC RBC Hgb Hct MCV MCH MCHC RDW Plt Count MPV Sodium Potassium Chloride Carbon Dioxide Anion Gap BUN Creatinine Est GFR ( Amer) Est GFR (Non-Af Amer) POC Glucose (mg/dL) Random Glucose Hemoglobin A1c 6.9 H Calcium Phosphorus Iron 78 TIBC 335 % Saturation 23 NT-Pro-B Natriuret Pep 1290 H Triglycerides 69 Cholesterol 94 L LDL Cholesterol Direct 48 HDL Cholesterol 27 L Vitamin B12 879 Folate > 20.0 TSH 3rd Generation Urine Color Urine Appearance Urine pH Ur Specific [place] Urine Protein Urine Glucose (UA) Urine Ketones Urine Blood Urine Nitrate Urine Bilirubin Urine Urobilinogen Ur Leukocyte Esterase Urine RBC Urine WBC Ur Epithelial Cells Urine Bacteria Ur Random Creatinine U Random Total Protein 07/12/18 07/12/18 07/13/18 13:29 15:30 06:20 WBC 6.6 RBC 4.02 Hgb 12.0 L Hct 36.6 L MCV 91.0 MCH 29.9 MCHC 32.8 RDW 14.4 Plt Count 249 MPV 10.0 Sodium Potassium Chloride Carbon Dioxide Anion Gap BUN Creatinine Est GFR ( Amer) Est GFR (Non-Af Amer) POC Glucose (mg/dL) 99 191 H Random Glucose Hemoglobin A1c Calcium Phosphorus Iron TIBC % Saturation NT-Pro-B Natriuret Pep Triglycerides Cholesterol LDL Cholesterol Direct HDL Cholesterol Vitamin B12 Folate TSH 3rd Generation Urine Color Urine Appearance Urine pH Ur Specific [place] Urine Protein Urine Glucose (UA) Urine Ketones Urine Blood Urine Nitrate Urine Bilirubin Urine Urobilinogen Ur Leukocyte Esterase Urine RBC Urine WBC Ur Epithelial Cells Urine Bacteria Ur Random Creatinine U Random Total Protein 07/13/18 07/13/1807/13/19 06:20 06:20 06:20 WBC RBC Hgb Hct MCV MCH MCHC RDW Plt Count MPV Sodium 139 Potassium 4.1 Chloride 104 Carbon Dioxide 26 Anion Gap 13 BUN 56 H Creatinine 4.1 H Est GFR ( Amer) 18 Est GFR (Non-Af Amer) 15 POC Glucose (mg/dL) Random Glucose 72 Hemoglobin A1c Calcium 9.1 Phosphorus 4.4 Iron TIBC % Saturation NT-Pro-B Natriuret Pep Triglycerides Cholesterol LDL Cholesterol Direct HDL Cholesterol Vitamin B12 Folate TSH 3rd Generation 2.57 Urine Color Urine Appearance Urine pH Ur Specific [place] Urine Protein Urine Glucose (UA) Urine Ketones Urine Blood Urine Nitrate Urine Bilirubin Urine Urobilinogen Ur Leukocyte Esterase Urine RBC Urine WBC Ur Epithelial Cells Urine Bacteria Ur Random Creatinine U Random Total Protein 07/13/18 07/13/18 07/13/18 07:29 08:35 08:35 WBC RBC Hgb Hct MCV MCH MCHC RDW Plt Count MPV Sodium Potassium Chloride Carbon Dioxide Anion Gap BUN Creatinine Est GFR ( Amer) Est GFR (Non-Af Amer) POC Glucose (mg/dL) 99 Random Glucose Hemoglobin A1c Calcium Phosphorus Iron TIBC % Saturation NT-Pro-B Natriuret Pep Triglycerides Cholesterol LDL Cholesterol Direct HDL Cholesterol Vitamin B12 Folate TSH 3rd Generation Urine Color Yellow Urine Appearance Clear Urine pH 7.5 Ur Specific [place] 1.010 Urine Protein 100 H Urine Glucose (UA) Negative Urine Ketones Negative Urine Blood Negative Urine Nitrate Negative Urine Bilirubin Negative Urine Urobilinogen 0.2 Ur Leukocyte Esterase Negative Urine RBC 0 - 2 Urine WBC 1 - 3 Ur Epithelial Cells None Urine Bacteria Few Ur Random Creatinine 53 U Random Total Protein 80 07/13/18 11:27 WBC RBC Hgb Hct MCV MCH MCHC RDW Plt Count MPV Sodium Potassium Chloride Carbon Dioxide Anion Gap BUN Creatinine Est GFR ( Amer) Est GFR (Non-Af Amer) POC Glucose (mg/dL) 161 H Random Glucose Hemoglobin A1c Calcium Phosphorus Iron TIBC % Saturation NT-Pro-B Natriuret Pep Triglycerides Cholesterol LDL Cholesterol Direct HDL Cholesterol Vitamin B12 Folate TSH 3rd Generation Urine Color Urine Appearance Urine pH Ur Specific [place] Urine Protein Urine Glucose (UA) Urine Ketones Urine Blood Urine Nitrate Urine Bilirubin Urine Urobilinogen Ur Leukocyte Esterase Urine RBC Urine WBC Ur Epithelial Cells Urine Bacteria Ur Random Creatinine U Random Total Protein Assessment & Plan - Assessment and Plan (Free Text) Assessment: Pt seen and examined by me. I have reviewed the note of the medical dir and I agree with it. I have discussed the assessment and plan with the resident. I have reviewed the medications and the last labs. Pt with CKD-4. I don't think that he has VILMA. He states that he has a baseline Cr between 4-5. 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 He had a L arm fistula placed and it is functioning. He is on Norvasc for his HTN. He is on ASA and Plavix for his CAD. He should continue with Atorvastatin for his hyperlipidemia. The pt is on Calcitriol for his secondary hyperparathyroidism.
--- NOTE | 2018-07-13 15:52 | CON ---
DATE: 07/13/2018 REASON FOR CONSULTATION: Cardiac evaluation, history of coronary artery disease, diabetes hypertension, admitted with abdominal pain and generalized weakness, worsening renal insufficiency. BRIEF CLINICAL HISTORY: This is a 63-year-old male with past medical significant for coronary artery disease status post HI, history of chronic kidney disease status post left arm fistula, diabetes, hypertension, hyperlipidemia, end-stage renal disease came in with epigastric pain, generalized feeling weak, inability to walk, lying most the time in the bed, yesterday went to see Dr. Hoffman, while admission. Denies any chest pain, denies any shortness, denies any palpitation. The patient initially treated by Dr. Hoffman because of the cough for antibiotic flu medication, but the patient did not improve, so the patient was sent for evaluation and further management. PAST MEDICAL HISTORY: Significant for coronary artery disease, status post multiple stent, history of chronic renal insufficiency, diabetes mellitus, hypertension, hyperlipidemia, status post HI, also told the patient has gastroparesis, history of last MUGA scan done in 2017 that shows ejection fraction 51%, history of HI and history of PTCA in the past, history of most recent echo and stress test done recently and as follows, history of recent stress test dated 05/19/2018 Lexiscan that shows abnormal mycoardial perfusion study partially reversible, medium size, mid to distal anteroseptal defect suspicious ischemic ejection fraction 52% when comparison was made from the study 06/15/2016 appears larger more prominent current study date of the test 05/19/2018. The patient has also echocardiography done on 05/19/2018 that shows ejection fraction 40%-45%, moderate hypokinesis mid anterior wall, trace aortic regurgitation, mild mitral regurgitation, trace to mild mitral regurgitation, mild tricuspid regurgitation and RV systolic pressure 48. PAST SURGICAL HISTORY: Significant for history of coronary artery disease and status post HI in the past. Past surgical history also significant for AV fistula in the left arm 6 weeks ago, preparation for dialysis, history of recent pneumonia, history of multiple admission with generalized weakness and pneumonia. CURRENT MEDICATION: The patient is taking at home; amlodipine 10 mg daily, Zocor, Bystolic 5 mg daily, and Namenda, Glucotrol, ferrous sulfate, Aricept, Plavix and aspirin. ALLERGIES: NO KNOWN DRUG ALLERGIES. PHYSICAL EXAMINATION: GENERAL: Height of the patient 5 feet 9 inches. Weight of the patient 148 pounds. Body mass index 21.9 kg/m2. VITAL SIGNS: Temperature afebrile. Heart rate 58 and blood pressure 113/49. HEENT: PERRLA. Extraocular muscles intact. NECK: Supple. No carotid bruits. No thyromegaly. CHEST: Clear to auscultation. HEART: S1 and S2, regular. ABDOMEN: Soft. EXTREMITIES: Clubbing and cyanosis negative. LABORATORY DATA: WBC 6.6, hemoglobin 12, hematocrit 36.6 and platelet count 249. Chemistry shows sodium 113, potassium 4.0, chloride 101, carbon dioxide 13, BUN 56 and creatinine 4.1 yesterday creatinine is 4.9. IMPRESSION: A 63-year-old male with past medical history significant for diabetes, hypertension, hyperlipidemia, diabetic retinopathy, neuropathy, nephropathy, gastroparesis, history of coronary artery disease, history of myocardial infarction, most recent stress test 05/19/2018 anterior wall ischemic ejection 40%-45% most recent echo shows ejection fraction 40%-45% anterior wall hypokinesis, trace-to mild mitral regurgitation, trace tricuspid regurgitation, trace aortic regurgitation, admitted with generalized weakness. So far, no evidence of acute ischemia, status post dialysis fistula in the left arm admitted with worsening renal insufficiency and generalized weakness. RECOMMENDATION: No evidence of active ischemia. Continue aggressive medical treatment. Continue with hydration as blood pressure and tolerated from CHF, admitting creatinine 4.6 now is 4.1 with hydration. Continue beta-maryellen and aspirin. Continue atorvastatin. Repeat the blood workup in the morning. We will follow with you. Continue Plavix. Thank you Dr. Hoffman for providing us the opportunity in taking care of the patient, Javier De Santiago. Once the patient's dialysis started consider cardiac catheterization because catheterization at this point seems the patient is asymptomatic. We will treat the patient to complete renal failure need dialysis. We will follow with you. Anyi Jacobo MD
--- NOTE | 2018-07-13 22:14 | CP.PCM.PCO ---
<Dylan Olivier - Last Filed: 07/13/18 22:14> Addendum Addendum: 07/13/18 22:12 House Doctor Note: Received a page at 22:05 from Nurse Yuliya regarding Mr. Herrera. Patient is complaining of generalized aches 11/05 and is requesting something for pain. Patient's LFTs are within normal limits. Patient hemodynamically stable. New order: Tylenol 650mg PO STAT x1 dose to be administered. Please continue to monitor the patient. Please page ext [phone] again if needed. Dylan Olivier PGY1 <Azul Espinosa - Last Filed: 07/14/18 19:18> Attending/Attestation - Attestation I have personally seen and examined this patient.: No I have fully participated in the care of the patient.: No I have reviewed all pertinent clinical information: No
--- NOTE | 2018-07-13 22:50 | HP ---
DATE OF EXAM: 07/13/2018 This treatment plan was discussed with Dr. Hoffman, she is in agreement with the plan. HISTORY OF PRESENT ILLNESS: This is a 63-year-old male, who came in with epigastric pain, nausea and vomiting, anorexia, fatigue. He was seen in Dr. Hoffman's office. We treated him at that time for upper respiratory infection. The patient has some nasal congestion, some chest congestion, wheezing; however, for the past week or so, the patient was not getting better. States that he was not able to urinate. PAST MEDICAL HISTORY: He has a past medical history of hypertension, diabetes, cardiovascular disease, he has a stent; cataracts, chronic kidney disease. PAST SURGICAL HISTORY: No other surgeries known except for the cardiac stent. SOCIAL HISTORY: The patient lives with family, does not smoke, does not drink. REVIEW OF SYSTEMS: Constitutional: The patient appears chronically ill. Respiratory: Denies sore throat, does have nasal congestion. Occasional cough. No chest pain, palpitations. No shortness of breath, hemoptysis. Gastrointestinal/Genitourinary: No heartburn. No abdominal pain. No constipation, dysuria, or prostate problems. Extremities: Denies joint pain, deformities, rash, or lesions. ALLERGIES: THE PATIENT HAS NO ALLERGIES. PHYSICAL EXAMINATION GENERAL: The patient appears chronically ill, fatigued. CURRENT VITAL SIGNS: Temperature 97.9, pulse rate 67, blood pressure 131/73, respirations 20, saturating at 98% on room air. HEENT: Normocephalic. PERRLA. Mucous membranes dry. NECK: Supple. Normal inspection. RESPIRATORY: Clear to auscultation. No wheeze or rhonchi. HEART: No JVD, murmur. ABDOMEN: Soft, nontender. No organomegaly, guarding. SKIN: Intact. Normal color. No edema. NEUROLOGIC: The patient is alert and oriented x3. Cranial nerves II to XII is intact. No cognitive deficits. MEDICATIONS: Amlodipine 10 mg daily, Ecotrin 81 mg daily, Lipitor 40 mg, calcitriol 0.5 mcg every Wednesday, chlorothiazide 25 mg p.o. once a week, Plavix 75 mg daily, Aricept 10 mg p.o. at bedtime, Zetia 10 mg p.o. daily, ferrous sulfate 325 mg b.i.d., Neurontin 300 mg daily. The patient has Accu-Cheks a.c. and at bedtime with Humulin insulin coverage, Namenda 10 mg daily, Bystolic 5 mg daily, Protonix 40 mg daily, Requip 0.25 mg daily. LABORATORY DATA: White blood cells 6.6, hemoglobin 12, hematocrit 36.6, platelets 249. PT 11.5, INR 1. Sodium 139, potassium 4.1, BUN 56, creatinine 4.1. ASSESSMENT AND PLAN: This is a 63-year-old male who came in with generalized fatigue, nausea and vomiting, some upper respiratory complaints, nasal congestion, cough, and anorexia. He has a history of chronic renal disease, diabetes type 2, cardiovascular disease with a stent, hypertension. Cardiology is on case, Nephrology I believe is on the case as well. Reviewed chest x-ray. Reviewed abdominal scan. Reviewed medications. BUN is 56, creatinine is 4.1. Plan is to continue to hydrate the patient. Monitor his glucose daily. Monitor labs. Follow up with Nephrology, Gastroenterology and Cardiology. We will follow up. ALL ABOVE NOTED , AGREED ALL ABOVE , D/D WITH [employer] , WILL F/U Jan Vicente APN Gill Hoffman MD [facility]
[2018-07-14] MEDS: Pantoprazole 40 mg EC Tab PO SCH (06:30)
[2018-07-14 06:52] LABS: BASO # 0.01 K/mm3 (0.0-2.0); BASO % 0.1 % (0.0-3.0); EOS # 0.2 (0.0-0.7); EOS % 2.5 % (1.5-5.0); HEMOGLOBIN 12.1 g/dL (14.0-18.0); LYMPH # 1.9 (1.2-3.4); LYMPH % 26.1 % (22.0-35.0); MEAN CELL VOLUME 92.1 fl (80.0-105.0); MEAN CORPUSCULAR HEMOGLOBIN 29.8 pg (25.0-35.0); MEAN CORPUSCULAR HGB CONC 32.4 g/dl (31.0-37.0); MONO # 0.5 (0.1-0.6); MONO % 6.9 % (1.0-6.0); RBC 4.06 10^6/uL (3.5-6.1); RED CELL DISTRIBUTION WIDTH 14.7 % (11.5-14.5); WHITE BLOOD COUNT 7.1 10^3/uL (4.5-11.0)
[2018-07-14 07:11] LABS: ALB/GLOB RATIO 1.3 (1.1-1.8); ALBUMIN 3.4 g/dL (3.0-4.8); CALCIUM 9.1 mg/dL (8.4-10.5)
[2018-07-14] MEDS: Insulin Reg-LOW-Coverage SC SCH ×4 (08:02→22:00)
--- NOTE | 2018-07-14 08:29 | CP.PCM.PN ---
Subjective - Date & Time of Evaluation Date of Evaluation: 07/14/18 Time of Evaluation: 06:40 - Subjective Subjective: Awake, alert, no distress Reason for consultation and follow up: Cardiac evaluation of coronary artery disease, hypertension, admitted for abdominal pain and generalized weakness Seen and examined by me and Dr. Jacobo Objective - Vital Signs/Intake and Output Vital Signs (last 24 hours): Temp Pulse Resp BP Pulse Ox 97.6 F 64 20 123/70 96 07/13/18 22:00 07/13/18 22:00 07/13/18 22:00 07/13/18 22:00 07/13/18 22:00 Intake and Output: 07/14/18 07/14/18 06:59 18:59 Intake Total 240 Balance 240 - Medications Medications: Current Medications Amlodipine Besylate (Norvasc) 10 mg PO DAILY [facility] Last Admin: 07/13/18 10:10 Dose: 10 mg Aspirin (Ecotrin) 81 mg PO DAILY [facility] Last Admin: 07/13/18 10:09 Dose: 81 mg Atorvastatin Calcium (Lipitor) 40 mg PO DIN [facility] Last Admin: 07/13/18 18:58 Dose: 40 mg Calcitriol (Rocaltrol) 0.25 mcg PO MON [facility] Chlorthalidone (Hygroton) 25 mg PO QOTHERDAY [facility] Clopidogrel Bisulfate (Plavix) 75 mg PO DAILY [facility] Last Admin: 07/13/18 10:09 Dose: 75 mg Donepezil HCl (Aricept) 10 mg PO HS [facility] Last Admin: 07/13/18 21:30 Dose: 10 mg Ezetimibe (Zetia) 10 mg PO DAILY [facility] Last Admin: 07/13/18 10:10 Dose: 10 mg Ferrous Sulfate (Feosol) 324 mg PO BID [facility] Gabapentin (Neurontin) 300 mg PO DAILY [facility]; Protocol Last Admin: 07/13/18 10:11 Dose: 300 mg Insulin Human Regular (Humulin R Low) 0 units SC [facility]; Protocol Last Admin: 07/14/18 08:02 Dose: Not Given Memantine (Namenda) 10 mg PO DAILY [facility] Last Admin: 07/13/18 10:10 Dose: 10 mg Non-Formulary Medication (Nebivolol [Bystolic]) 5 mg PO DAILY [facility] Last Admin: 07/13/18 10:11 Dose: Not Given Pantoprazole Sodium (Protonix Ec Tab) 40 mg PO 0600 [facility] Last Admin: 07/14/18 06:30 Dose: 40 mg Ropinirole HCl (Requip) 0.25 mg PO DAILY [facility] Last Admin: 07/13/18 10:09 Dose: 0.25 mg - Labs Labs: 07/14/18 06:00 07/14/18 06:00 PT 11.5 SECONDS (9.4-12.5) 07/12/18 13:10 INR 1.04 07/12/18 13:10 APTT 36.1 Seconds (26.9-38.3) 07/12/18 13:10 - Constitutional Appears: Non-toxic, No Acute Distress - Head Exam Head Exam: NORMAL INSPECTION, NORMOCEPHALIC - Eye Exam Eye Exam: Normal appearance Additional comments: legally blind - ENT Exam ENT Exam: Mucous Membranes Moist, Normal Exam - Respiratory Exam Respiratory Exam: Decreased Breath Sounds, Clear to Ausculation Bilateral, NORMAL BREATHING PATTERN - Cardiovascular Exam Cardiovascular Exam: +S1, +S2 - GI/Abdominal Exam GI & Abdominal Exam: Soft, Normal Bowel Sounds - Extremities Exam Extremities Exam: Full ROM, Normal Capillary Refill Additional comments: Left AV fistula positive bruit - Neurological Exam Neurological Exam: Alert, Awake, Oriented x3 - Psychiatric Exam Psychiatric exam: Normal Affect, Normal Mood - Skin Skin Exam: Dry, Normal Color, Warm Assessment and Plan - Assessment and Plan (Free Text) Assessment: A 63 year male who came in to the ER due to generalized weakness and abdominal pain. History of coronary artery disease, post multiple stents, status post IL, history of chronic renal insufficiency, diabetes,hypertension, hyperlipidemia,diabetic retinopathy,neuropathy, nephropathy ,gastroparesis,pneumonia, anemia,pancreatitis. Echo done on 05/19/18 showed LVEF 40-45%, trace aortic and tricuspid regurgitation, trace to mild regurgitation. Stress done on 05/19/18 showed mid to distal anteroseptal and apical defect suspicious of ischemia. LVEF 52%. So far no evidence of acute ischemia, denies chest pain or shortness of breath. Aggressive medical treatment. Consider Cardiac catheterization once renal function stabilized and or hemodiaysis initiated. GI work up in progress. Plan: Complained of generalized body ache Tylenol given GI work up in progress Denies chest pain or shortness of breath Heart rate stable Blood pressure stable IV fluids for hydration On Norvasc 10 mg daily, ASA 81 mg daily, Lipitor 40 mg daily Plavix 75 mg daily, Continue current treatment Continue current medications Will follow up Plan and treatment discussed with Dr. Jacobo
--- NOTE | 2018-07-14 08:56 | CP.PCM.PN ---
<Tin Multani - Last Filed: 07/14/18 21:18> Subjective - Date & Time of Evaluation Date of Evaluation: 07/14/18 Time of Evaluation: 08:55 - Subjective Subjective: Nephrology Progress Note for Dr. Victoriano Multani PGY2 Patient seen and examined this AM. No acute events overnight. Patient continues to tolerate PO intake. Patient making urine. Denies abdominal pain, urianry complaints, flank pain, chest pain, shortness of breath, nausea, vomiting, fever, chills. Objective - Vital Signs/Intake and Output Vital Signs (last 24 hours): Temp Pulse Resp BP Pulse Ox 97.6 F 64 20 123/70 96 07/13/18 22:00 07/13/18 22:00 07/13/18 22:00 07/13/18 22:00 07/13/18 22:00 Intake and Output: 07/14/18 07/14/18 06:59 18:59 Intake Total 240 Balance 240 - Medications Medications: Current Medications Amlodipine Besylate (Norvasc) 10 mg PO DAILY [facility] Last Admin: 07/13/18 10:10 Dose: 10 mg Aspirin (Ecotrin) 81 mg PO DAILY [facility] Last Admin: 07/13/18 10:09 Dose: 81 mg Atorvastatin Calcium (Lipitor) 40 mg PO DIN [facility] Last Admin: 07/13/18 18:58 Dose: 40 mg Calcitriol (Rocaltrol) 0.25 mcg PO MON [facility] Chlorthalidone (Hygroton) 25 mg PO QOTHERDAY [facility] Clopidogrel Bisulfate (Plavix) 75 mg PO DAILY [facility] Last Admin: 07/13/18 10:09 Dose: 75 mg Donepezil HCl (Aricept) 10 mg PO HS [facility] Last Admin: 07/13/18 21:30 Dose: 10 mg Ezetimibe (Zetia) 10 mg PO DAILY [facility] Last Admin: 07/13/18 10:10 Dose: 10 mg Ferrous Sulfate (Feosol) 324 mg PO BID [facility] Gabapentin (Neurontin) 300 mg PO DAILY [facility]; Protocol Last Admin: 07/13/18 10:11 Dose: 300 mg Insulin Human Regular (Humulin R Low) 0 units SC [facility]; Protocol Last Admin: 07/14/18 08:02 Dose: Not Given Memantine (Namenda) 10 mg PO DAILY [facility] Last Admin: 07/13/18 10:10 Dose: 10 mg Non-Formulary Medication (Nebivolol [Bystolic]) 5 mg PO DAILY [facility] Last Admin: 07/13/18 10:11 Dose: Not Given Pantoprazole Sodium (Protonix Ec Tab) 40 mg PO 0600 [facility] Last Admin: 07/14/18 06:30 Dose: 40 mg Ropinirole HCl (Requip) 0.25 mg PO DAILY [facility] Last Admin: 07/13/18 10:09 Dose: 0.25 mg - Labs Labs: 07/14/18 06:00 07/14/18 06:00 PT 11.5 SECONDS (9.4-12.5) 07/12/18 13:10 INR 1.04 07/12/18 13:10 APTT 36.1 Seconds (26.9-38.3) 07/12/18 13:10 - Constitutional Appears: Non-toxic - Head Exam Head Exam: ATRAUMATIC, NORMOCEPHALIC - Eye Exam Eye Exam: EOMI, PERRL Additional comments: patient legally blind - ENT Exam ENT Exam: Mucous Membranes Moist - Neck Exam Neck Exam: Full ROM - Respiratory Exam Respiratory Exam: Clear to Ausculation Bilateral, NORMAL BREATHING PATTERN - Cardiovascular Exam Cardiovascular Exam: REGULAR RHYTHM, +S1, +S2 - GI/Abdominal Exam GI & Abdominal Exam: Soft, Normal Bowel Sounds. absent: Guarding, Rigid, Tenderness - Extremities Exam Extremities Exam: absent: Calf Tenderness Additional comments: left forearm with palpable thrill and audible bruit - Neurological Exam Neurological Exam: Alert, Awake, CN II-XII Intact, Normal Gait, Oriented x3 Neuro motor strength exam: Left Upper Extremity: 5, Right Upper Extremity: 5, Left Lower Extremity: 5, Right Lower Extremity: 5 - Psychiatric Exam Psychiatric exam: Normal Affect, Normal Mood - Skin Skin Exam: Dry, Warm Assessment and Plan - Assessment and Plan (Free Text) Assessment: -CKD stage IV likely secondary to combination of diabetic nephropathy and long standing HTN -Anemia of Chronic disease -Secondary Hyperparathyroidism -CAD -HTN -DM -HLD Patient renal function seen to be at baseline upon admission. Patient is making urine at adequate amount. Continue oral intake. Continue to monitor electrolytes and replete as necessary. Maintain euvolemia, normotensive BP, and avoid nephrotoxic agents. Patient with AV fistula for past 6 months. Will continue to monitor urine output and renal function as IV fluid replacement. No need for acute dialysis at this time. Continue calcitriol for secondary hyperpathyroidism. Patient to continue ASA, Plavix, atorvastatin for CAD and HLD. Continue norvasc and bystolic for BP control. Continue ferrous sulfate for iron deficiency. Continue statin and zetia for HLD. Continue Insulin sliding scale for DM2 control. <Jose Pastrana - Last Filed: 07/14/18 21:41> Objective - Vital Signs/Intake and Output Vital Signs (last 24 hours): Temp Pulse Resp BP Pulse Ox 98 F 72 18 135/70 97 07/14/18 04:26 07/14/18 04:26 07/14/18 04:26 07/14/18 10:17 07/14/18 04:26 - Medications Medications: Current Medications Amitriptyline HCl (Elavil) 10 mg PO HS [facility] Last Admin: 07/14/18 21:35 Dose: 10 mg Amlodipine Besylate (Norvasc) 10 mg PO DAILY [facility] Last Admin: 07/14/18 10:17 Dose: 10 mg Aspirin (Ecotrin) 81 mg PO DAILY [facility] Last Admin: 07/14/18 10:16 Dose: 81 mg Atorvastatin Calcium (Lipitor) 40 mg PO DIN [facility] Last Admin: 07/14/18 17:14 Dose: 40 mg Calcitriol (Rocaltrol) 0.25 mcg PO MON [facility] Chlorthalidone (Hygroton) 25 mg PO QOTHERDAY [facility] Last Admin: 07/14/18 10:16 Dose: 25 mg Clopidogrel Bisulfate (Plavix) 75 mg PO DAILY [facility] Last Admin: 07/14/18 10:16 Dose: 75 mg Donepezil HCl (Aricept) 10 mg PO HS [facility] Last Admin: 07/14/18 21:35 Dose: 10 mg Ezetimibe (Zetia) 10 mg PO DAILY [facility] Last Admin: 07/14/18 10:17 Dose: 10 mg Ferrous Sulfate (Feosol) 324 mg PO BID [facility] Last Admin: 07/14/18 17:14 Dose: 324 mg Gabapentin (Neurontin) 300 mg PO DAILY [facility]; Protocol Last Admin: 07/14/18 10:16 Dose: 300 mg Sodium Chloride (Sodium Chloride 0.45%) 1,000 mls @ 70 mls/hr IV .[id number] [facility] Insulin Human Regular (Humulin R Low) 0 units SC [facility]; Protocol Last Admin: 07/14/18 17:14 Dose: 2 unit Memantine (Namenda) 10 mg PO DAILY [facility] Last Admin: 07/14/18 10:17 Dose: 10 mg Non-Formulary Medication (Nebivolol [Bystolic]) 5 mg PO DAILY [facility] Last Admin: 07/14/18 10:17 Dose: Not Given Pantoprazole Sodium (Protonix Ec Tab) 40 mg PO 0600 [facility] Last Admin: 07/14/18 06:30 Dose: 40 mg Ropinirole HCl (Requip) 0.25 mg PO DAILY [facility] Last Admin: 07/14/18 10:16 Dose: 0.25 mg Tamsulosin HCl (Flomax) 0.4 mg PO DAILY [facility] Last Admin: 07/14/18 12:14 Dose: 0.4 mg - Labs Labs: 07/14/18 06:00 07/14/18 06:00 PT 11.5 SECONDS (9.4-12.5) 07/12/18 13:10 INR 1.04 07/12/18 13:10 APTT 36.1 Seconds (26.9-38.3) 07/12/18 13:10 Assessment and Plan - Assessment and Plan (Free Text) Assessment: Pt seen and examined by me. I have reviewed the note of the medical surgical tech and I agree with it. I have discussed the assessment and plan with the resident. I have reviewed the medications and the last labs.
[2018-07-14] MEDS: Non Formulary Medication (Nebivolol [Bystolic] 5 MG) PO SCH (10:17)
--- NOTE | 2018-07-14 10:33 | CP.PCM.PN ---
<Itzel Alexandra - Last Filed: 07/14/18 19:43> Subjective - Date & Time of Evaluation Date of Evaluation: 07/14/18 Time of Evaluation: 10:24 - Subjective Subjective: Itzel Alexandra, PGY-1, GI Progress Note for Dr. Bloom Patient seen and evaluated at bedside this morning. Patient reported continued abdominal pain and nausea but denies vomiting, constipation or diarrhea. He reports unremarkable bowel movements and has had continued cough with white to yellow sputum. Objective - Vital Signs/Intake and Output Vital Signs (last 24 hours): Temp Pulse Resp BP Pulse Ox 97.6 F 64 20 135/70 96 07/13/18 22:00 07/13/18 22:00 07/13/18 22:00 07/14/18 10:17 07/13/18 22:00 Intake and Output: 07/14/18 07/14/18 06:59 18:59 Intake Total 240 Balance 240 - Medications Medications: Current Medications Amlodipine Besylate (Norvasc) 10 mg PO DAILY [facility] Last Admin: 07/14/18 10:17 Dose: 10 mg Aspirin (Ecotrin) 81 mg PO DAILY [facility] Last Admin: 07/14/18 10:16 Dose: 81 mg Atorvastatin Calcium (Lipitor) 40 mg PO DIN [facility] Last Admin: 07/13/18 18:58 Dose: 40 mg Calcitriol (Rocaltrol) 0.25 mcg PO MON [facility] Chlorthalidone (Hygroton) 25 mg PO QOTHERDAY [facility] Last Admin: 07/14/18 10:16 Dose: 25 mg Clopidogrel Bisulfate (Plavix) 75 mg PO DAILY [facility] Last Admin: 07/14/18 10:16 Dose: 75 mg Donepezil HCl (Aricept) 10 mg PO HS [facility] Last Admin: 07/13/18 21:30 Dose: 10 mg Ezetimibe (Zetia) 10 mg PO DAILY [facility] Last Admin: 07/14/18 10:17 Dose: 10 mg Ferrous Sulfate (Feosol) 324 mg PO BID [facility] Last Admin: 07/14/18 10:17 Dose: 324 mg Gabapentin (Neurontin) 300 mg PO DAILY [facility]; Protocol Last Admin: 07/14/18 10:16 Dose: 300 mg Insulin Human Regular (Humulin R Low) 0 units [place] [facility]; Protocol Last Admin: 07/14/18 08:02 Dose: Not Given Memantine (Namenda) 10 mg PO DAILY [facility] Last Admin: 07/14/18 10:17 Dose: 10 mg Non-Formulary Medication (Nebivolol [Bystolic]) 5 mg PO DAILY [facility] Last Admin: 07/14/18 10:17 Dose: Not Given Pantoprazole Sodium (Protonix Ec Tab) 40 mg PO 0600 [facility] Last Admin: 07/14/18 06:30 Dose: 40 mg Ropinirole HCl (Requip) 0.25 mg PO DAILY [facility] Last Admin: 07/14/18 10:16 Dose: 0.25 mg - Labs Labs: 07/14/18 06:00 07/14/18 06:00 PT 11.5 SECONDS (9.4-12.5) 07/12/18 13:10 INR 1.04 07/12/18 13:10 APTT 36.1 Seconds (26.9-38.3) 07/12/18 13:10 - Constitutional Appears: Well, Non-toxic, No Acute Distress - Head Exam Head Exam: ATRAUMATIC, NORMAL INSPECTION, NORMOCEPHALIC - Eye Exam Eye Exam: EOMI, PERRL - ENT Exam ENT Exam: Mucous Membranes Moist - Respiratory Exam Respiratory Exam: Clear to Auscultation Bilateral, NORMAL BREATHING PATTERN - Cardiovascular Exam Cardiovascular Exam: REGULAR RHYTHM, RRR, +S1, +S2 - GI/Abdominal Exam GI & Abdominal Exam: Normal Bowel Sounds, Soft, Tenderness. absent: Distended, Rebound - Extremities Exam Extremities exam: Positive for: full ROM, normal inspection. Negative for: tenderness - Neurological Exam Neurological exam: Alert, CN II-XII Intact, Oriented x3 - Skin Skin Exam: Dry, Intact Assessment and Plan - Assessment and Plan (Free Text) Assessment: 63 year old male with past medical history of hypertension, diabetes mellitus, [place] status post 8 stents, hyperlipidemia presents with subjective fever and dull epigastric pain for 2 weeks. #Rule out gastroenteritis vs. gastroparesis #Rule out pneumonia #Diabetes Mellitus #Hypertension #Hypercholesterolemia Plan: -Abdominal CT and gallbladder ultrasound show no acute etiology of abdominal pain. -UA unremarkable thus doubt UTI -Patient does not fulfill SIRS criteria at this time. No documented fever -Could consider gastroparesis though has been having no change in bowel movements. -Progress to pureed diet tomorrow. Will progress diet as tolerated -Will obtain stool studies for possible gastroenteritis -Will schedule endoscopy for next week for further evaluation of nausea, vomiting, and abdominal pain. Will need plavix held for 5 days. -Continue PPI daily Patient plan discussed with Dr. Bloom <Jefferson Bloom V - Last Filed: 07/14/18 23:59> Objective - Vital Signs/Intake and Output Vital Signs (last 24 hours): Temp Pulse Resp BP Pulse Ox 98 F 72 18 135/70 97 07/14/18 04:26 07/14/18 04:26 07/14/18 04:26 07/14/18 10:17 07/14/18 04:26 Intake and Output: 07/14/18 07/15/18 18:59 06:59 Intake Total 1160 Balance 1160 - Medications Medications: Current Medications Amitriptyline HCl (Elavil) 10 mg PO HS [facility] Last Admin: 07/14/18 21:35 Dose: 10 mg Amlodipine Besylate (Norvasc) 10 mg PO DAILY [facility] Last Admin: 07/14/18 10:17 Dose: 10 mg Aspirin (Ecotrin) 81 mg PO DAILY [facility] Last Admin: 07/14/18 10:16 Dose: 81 mg Atorvastatin Calcium (Lipitor) 40 mg PO DIN [facility] Last Admin: 07/14/18 17:14 Dose: 40 mg Calcitriol (Rocaltrol) 0.25 mcg PO MON [facility] Chlorthalidone (Hygroton) 25 mg PO QOTHERDAY [facility] Last Admin: 07/14/18 10:16 Dose: 25 mg Clopidogrel Bisulfate (Plavix) 75 mg PO DAILY [facility] Last Admin: 07/14/18 10:16 Dose: 75 mg Donepezil HCl (Aricept) 10 mg PO HS [facility] Last Admin: 07/14/18 21:35 Dose: 10 mg Ezetimibe (Zetia) 10 mg PO DAILY [facility] Last Admin: 07/14/18 10:17 Dose: 10 mg Ferrous Sulfate (Feosol) 324 mg PO BID [facility] Last Admin: 07/14/18 17:14 Dose: 324 mg Gabapentin (Neurontin) 300 mg PO DAILY [facility]; Protocol Last Admin: 07/14/18 10:16 Dose: 300 mg Sodium Chloride (Sodium Chloride 0.45%) 1,000 mls @ 70 mls/hr IV .[id number] [facility] Insulin Human Regular (Humulin R Low) 0 units SC ACHS [facility]; Protocol Last Admin: 07/14/18 17:14 Dose: 2 unit Memantine (Namenda) 10 mg PO DAILY [facility] Last Admin: 07/14/18 10:17 Dose: 10 mg Non-Formulary Medication (Nebivolol [Bystolic]) 5 mg PO DAILY [facility] Last Admin: 07/14/18 10:17 Dose: Not Given Pantoprazole Sodium (Protonix Ec Tab) 40 mg PO 0600 [facility] Last Admin: 07/14/18 06:30 Dose: 40 mg Ropinirole HCl (Requip) 0.25 mg PO DAILY [facility] Last Admin: 07/14/18 10:16 Dose: 0.25 mg Tamsulosin HCl (Flomax) 0.4 mg PO DAILY [facility] Last Admin: 07/14/18 12:14 Dose: 0.4 mg - Labs Labs: 07/14/18 06:00 07/14/18 06:00 PT 11.5 SECONDS (9.4-12.5) 07/12/18 13:10 INR 1.04 07/12/18 13:10 APTT 36.1 Seconds (26.9-38.3) 07/12/18 13:10 Attending/Attestation - Attestation I have personally seen and examined this patient.: Yes I have fully participated in the care of the patient.: Yes I have reviewed all pertinent clinical information, including history, physical exam and plan: Yes Notes (Text): sudheer 07/14/18 23:58
[2018-07-14] MEDS ORDERED: Sodium Chloride 0.45% 1,000 ML IV SCH (12:45)
--- NOTE | 2018-07-14 18:29 | PN ---
DATE: 07/14/2018 SUBJECTIVE: The patient was seen and examined at the bedside on 07/14/2018, looking comfortable, still feeling very weak and tired, having abdominal pain and nauseous. Abdominal pain is continuous. No vomiting, constipation or diarrhea. Sometime he is coughing with white to yellow phlegm. No fever, no chills. No hematuria or hematochezia. PHYSICAL EXAMINATION: VITAL SIGNS: Temperature 97.6, pulse 64, respiratory rate 20, blood pressure 135/70, pulse oximetry 96%. HEENT: Head is normocephalic and atraumatic. Eyes, PERRLA. Extraocular movements are intact. Conjunctivae are clear. Nose is patent. NECK: Supple. No carotid bruit, JVD, or thyromegaly. CHEST: Bilaterally symmetrical. HEART: S1 and S2 positive. LUNGS: Clear to auscultation. ABDOMEN: Soft. Bowel sounds present. No organomegaly. EXTREMITIES: No edema. No cyanosis. NEUROLOGICAL: The patient is awake and alert. Moving all 4 extremities. No focal deficits. MEDICATIONS: Norvasc, Ecotrin, Lipitor, chlorthalidone, Plavix, Aricept, Zetia, iron sulfate, Neurontin, Namenda, Protonix and Requip. LABORATORY DATA: White blood cells 7.1, hemoglobin 12.1, hematocrit 37.4, platelets 214. Sodium 139, potassium 4.4, BUN 46, creatinine 4, glucose 112. ASSESSMENT AND PLAN: Mr. Anyi Herrera is a 63-year-old male with anemia, renal insufficiency, hyperglycemia, history of hypertension, myocardial infarction status post eight cardiac stenting, hypercholesteremia, having dull epigastric pain for two weeks, rule out gastroenteritis versus gastroparesis per Dr. Bloom the patient need endoscopy. Rule out pneumonia, we will put a pulmonary consult. Abdominal CT and gallbladder ultrasounds shows no acute pathology of abdominal pain. Rule out urinary tract infection. The patient is getting full liquid diet and progress is as tolerated. Will do endoscopy today for evaluation of nausea and abdominal pain and continue proton pump inhibitor. Length of time discussion time done with Dr. Bloom. The patient has history of coronary artery disease. Marketing Rep is on the case and repeat labs. We will follow up. Gill Hoffman MD [facility] # [id number] JEMIMA
--- NOTE | 2018-07-15 01:32 | CON ---
DATE OF CONSULTATION: 07/14/2018 PULMONARY CONSULTATION REFERRING PHYSICIAN: Dr. Hoffman. REASON FOR CONSULTATION: Cough. HISTORY OF PRESENT ILLNESS: This is a 63-year-old gentleman, known to me from previous admission, has a history of diabetes, gastroparesis, recurrent GERD, cough, hypertension, diabetes, vascular disease, multiple coronary stents, and renal insufficiency, who comes in because of epigastric discomfort, shortness of breath, and some cough. No hemoptysis or emesis, no hematuria, no diarrhea reported. PAST MEDICAL HISTORY: As per history of present illness. SOCIAL HISTORY: He is nonsmoker, nondrinker. ALLERGIES: NONE KNOWN. FAMILY HISTORY: Positive for diabetes and coronary artery disease. MEDICATIONS: He is on Aricept 10 mg daily, Ecotrin 81 mg daily, Elavil 10 mg daily, ferrous sulfate 324 mg twice a day, Flomax 0.4 mg daily, insulin coverage, Hygroton 825 mg every and Wednesday, Lipitor 40 mg daily, Namenda 10 mg daily, Bystolic 5 mg daily, Neurontin 300 mg daily, Norvasc 10 mg daily, Plavix 75 mg daily, Protonix 40 mg daily, Requip 0.25 mg daily, calcitriol 0.25 mg Wednesday, and also half normal saline 70 mL/hour, and Zetia 10 mg daily. REVIEW OF SYSTEMS: No headache. No rhinitis. Does have a cough, history of GERD, chest pain. No leg pain. No dysuria. No leg swelling. PHYSICAL EXAMINATION: GENERAL: No acute distress. VITAL SIGNS: Temperature is 98, heart rate 72, respiratory rate 18, blood pressure 135/70, pulse ox 97% on room air. HEENT: Moist mucous membrane. Crowded airway. Mallampati score is 4. NECK: Supple. No JVD. LUNGS: Have scattered rhonchi. HEART: S1 and S2. ABDOMEN: Soft. Mild epigastric tenderness. EXTREMITIES: There is no edema. NEUROLOGICALLY: Awake and follows simple commands. LABORATORY DATA: Shows hemoglobin 12.1, hematocrit 37.4, WBC 7.1, platelet is 249. VBG done on admission showed pH 7.34, pCO2 of 54. pO2 of 23. His sodium is 139, potassium 4.4, chloride 105, bicarbonate 28, BUN 46, creatinine 4, glucose of 100, calcium 9.1, phosphorus 4.1, magnesium 2.4, AST 31, ALT 11, alk phos is 43. Albumin is 3.4. IMPRESSION AND PLAN: Chronic cough, probably secondary to gastroparesis with diabetes, extensive coronary artery disease, hypertension, hyperlipidemia, renal failure, may have a component of sleep apnea syndrome. I agree with Dr. Hoffman with the present management. The patient is seen by Dr. Bloom and is scheduled for endoscopy. From pulmonary point of view, good. Precautions, keep head at 45 degrees, eat dinner at least 3 hours before going to bed, continue proton inhibitors. We will recommend attended sleep study upon discharge as an outpatient. Thank you, and we will follow with you. Anyi Borja MD
--- NOTE | 2018-07-15 02:09 | PN ---
DATE: 07/14/2018 The patient was seen and examined. I do agree with the note of the certified court/medical interpreter. I was involved in the plan of care. The patient has CKD stage IV, this is from diabetic nephropathy, longstanding hypertension as well. He has chronic anemia. He has secondary hyperparathyroidism. He has a left AV fistula that is maturing. He is currently comfortable. He is on IV fluids. The patient is on Flomax for his BPH. He is on Plavix daily. The patient is on Zetia for his dyslipidemia. No further renal intervention would be needed. He does have coronary artery disease and he is on aspirin. Jose Pastrana MD
[2018-07-15] MEDS: Pantoprazole 40 mg EC Tab PO SCH (05:42)
[2018-07-15 06:55] LABS: HEMOGLOBIN 11.7 g/dL (14.0-18.0); MEAN CELL VOLUME 91.8 fl (80.0-105.0); MEAN CORPUSCULAR HEMOGLOBIN 29.8 pg (25.0-35.0); MEAN CORPUSCULAR HGB CONC 32.5 g/dl (31.0-37.0); MEAN PLATELET VOLUME 9.8 fl (7.0-11.0); RBC 3.92 10^6/uL (3.5-6.1); RED CELL DISTRIBUTION WIDTH 14.7 % (11.5-14.5); WHITE BLOOD COUNT 9.1 10^3/uL (4.5-11.0)
[2018-07-15 07:18] LABS: CALCIUM 8.8 mg/dL (8.4-10.5)
[2018-07-15] MEDS: Insulin Reg-LOW-Coverage SC SCH ×4 (08:24→21:40)
[2018-07-15] MEDS: Non Formulary Medication (Nebivolol [Bystolic] 5 MG) PO SCH (09:58)
--- NOTE | 2018-07-15 10:14 | CP.PCM.PN ---
Subjective - Date & Time of Evaluation Date of Evaluation: 07/15/18 Time of Evaluation: 10:10 - Subjective Subjective: Itzel Alexandra, PGY-1, GI Progress Note for Dr. Bloom Patient seen and evaluated at bedside this morning. Patient reported continued abdominal pain and nausea but denies vomiting, constipation or diarrhea. He reports 3 black loose stools and has had continued cough with white to yellow sputum. Objective - Vital Signs/Intake and Output Vital Signs (last 24 hours): Temp Pulse Resp BP Pulse Ox 98.2 F 74 18 129/71 100 07/15/18 06:00 07/15/18 06:00 07/15/18 06:00 07/15/18 09:49 07/15/18 06:00 Intake and Output: 07/15/18 07/15/18 06:59 18:59 Intake Total 1999 Balance 1999 - Medications Medications: Current Medications Amitriptyline HCl (Elavil) 10 mg PO [facility] Last Admin: 07/14/18 21:35 Dose: 10 mg Amlodipine Besylate (Norvasc) 10 mg PO DAILY [facility] Last Admin: 07/15/18 09:49 Dose: 10 mg Aspirin (Ecotrin) 81 mg PO DAILY [facility] Last Admin: 07/15/18 09:49 Dose: 81 mg Atorvastatin Calcium (Lipitor) 40 mg PO DIN [facility] Last Admin: 07/14/18 17:14 Dose: 40 mg Calcitriol (Rocaltrol) 0.25 mcg PO MON [facility] Chlorthalidone (Hygroton) 25 mg PO QOTHERDAY [facility] Last Admin: 07/14/18 10:16 Dose: 25 mg Clopidogrel Bisulfate (Plavix) 75 mg PO DAILY [facility] Last Admin: 07/14/18 10:16 Dose: 75 mg Donepezil HCl (Aricept) 10 mg PO HS [facility] Last Admin: 07/14/18 21:35 Dose: 10 mg Ezetimibe (Zetia) 10 mg PO DAILY [facility] Last Admin: 07/15/18 09:49 Dose: 10 mg Ferrous Sulfate (Feosol) 324 mg PO BID [facility] Last Admin: 07/15/18 09:48 Dose: 324 mg Gabapentin (Neurontin) 300 mg PO DAILY [facility]; Protocol Last Admin: 07/15/18 09:58 Dose: Not Given Sodium Chloride (Sodium Chloride 0.45%) 1,000 mls @ 70 mls/hr IV .[id number] [facility] Last Admin: 07/15/18 05:45 Dose: 70 mls/hr Insulin Human Regular (Humulin R Low) 0 units SC ACHS [facility]; Protocol Last Admin: 07/15/18 08:24 Dose: 2 unit Memantine (Namenda) 10 mg PO DAILY [facility] Last Admin: 07/15/18 09:49 Dose: 10 mg Non-Formulary Medication (Nebivolol [Bystolic]) 5 mg PO DAILY [facility] Last Admin: 07/15/18 09:58 Dose: Not Given Pantoprazole Sodium (Protonix Ec Tab) 40 mg PO 0600 [facility] Last Admin: 07/15/18 05:42 Dose: 40 mg Ropinirole HCl (Requip) 0.25 mg PO DAILY [facility] Last Admin: 07/15/18 09:48 Dose: 0.25 mg Tamsulosin HCl (Flomax) 0.4 mg PO DAILY [facility] Last Admin: 07/15/18 09:49 Dose: 0.4 mg - Labs Labs: 07/15/18 06:10 07/15/18 06:10 PT 11.5 SECONDS (9.4-12.5) 07/12/18 13:10 INR 1.04 07/12/18 13:10 APTT 36.1 Seconds (26.9-38.3) 07/12/18 13:10 - Constitutional Appears: Well, Non-toxic, No Acute Distress - Head Exam Head Exam: ATRAUMATIC, NORMAL INSPECTION, NORMOCEPHALIC - Eye Exam Eye Exam: EOMI, PERRL - ENT Exam ENT Exam: Mucous Membranes Moist - Respiratory Exam Respiratory Exam: Clear to Auscultation Bilateral, NORMAL BREATHING PATTERN - Cardiovascular Exam Cardiovascular Exam: REGULAR RHYTHM, RRR, +S1, +S2 - GI/Abdominal Exam GI & Abdominal Exam: Normal Bowel Sounds, Soft, Tenderness. absent: Distended, Rebound - Extremities Exam Extremities exam: Positive for: full ROM, normal inspection. Negative for: tenderness - Neurological Exam Neurological exam: Alert, CN II-XII Intact, Oriented x3 - Skin Skin Exam: Dry, Intact Assessment and Plan - Assessment and Plan (Free Text) Assessment: 63 year old male with past medical history of hypertension, diabetes mellitus, [place] status post 8 stents, hyperlipidemia presents with subjective fever and dull epigastric pain for 2 weeks. #Rule out gastroenteritis vs. gastroparesis #Rule out pneumonia #Diabetes Mellitus #Hypertension #Hypercholesterolemia Plan: -Abdominal CT and gallbladder ultrasound show no acute etiology of abdominal pain. -UA unremarkable thus doubt UTI -Patient does not fulfill SIRS criteria at this time. No documented fever -Could consider gastroparesis though has been having no change in bowel movements. -Progressed to pureed diet. Will progress diet as tolerated -Will obtain stool studies for possible gastroenteritis -Will schedule endoscopy and colonoscopy for next week for further evaluation of nausea, vomiting, and abdominal pain. Will need plavix held for 5 days. Would prefer this to be done inpatient due to history of not tolerating colonoscopy prep well -Continue PPI daily Patient plan discussed with Dr. Bloom
--- NOTE | 2018-07-15 11:31 | PN ---
DATE: 07/15/2018 REASON FOR CONSULTATION AND FOLLOWUP: Cardiac evaluation, history of coronary artery disease, diabetes, hypertension, hyperlipidemia; admitted with abdominal pain, gastroparesis, generalized weakness, renal insufficiency, status post left arm fistula, requiring endoscopy and colonoscopy. SUBJECTIVE: The patient denies any chest pain, shortness of breath, any palpitations. Feels abdominal pain, which was improving, but feels generalized weakness. PHYSICAL EXAMINATION VITAL SIGNS: Temperature afebrile. Heart rate 72 and blood pressure 135/70. HEENT: PERRLA. Extraocular muscles are intact. NECK: Supple. No carotid bruits or thyromegaly. CHEST: Clear to auscultation. HEART: S1 and S2 regular. ABDOMEN: Soft. EXTREMITIES: Clubbing and cyanosis, negative. LABORATORY DATA: WBC 10.0, hemoglobin 11.0, hematocrit 36.0 and platelet count 225. Chemistry shows sodium 141, potassium 4, chloride 108, carbon dioxide 25, anion gap of 12, BUN 36 and creatinine 3.4. IMPRESSION AND PLAN: A 63-year-old male with past medical history significant for coronary artery disease, status post anterior wall myocardial infarction at least 6 to 7 years ago on aspirin and Plavix, history of diabetes, history of diabetic neuropathy, gastroparesis and generalized weakness. Last echo on 05/19/2018 shows ejection fraction 40% to 45%, trace aortic regurgitation, trace to mild tricuspid regurgitation, mild to mitral regurgitation. Stress test on 05/19/2018 shows distal anteroseptal septal ischemia, suspicious ischemic ejection fraction 52%, so far no evidence of acute ischemia. Denies any chest pain. Aggressive medical treatment recommended. We will consider cardiac catheterization once the patient start on dialysis. The patient has fistula in the left arm. Yesterday, I discussed with Dr. Bloom, regarding endoscopy and colonoscopy. The patient had stent at least 6 to 7 years ago, date exactly is not known, we will review the office chart, because in the system date is not mentioned of last angioplasty, but at least 6 to 7 years before. The patient cleared to go for endoscopy and colonoscopy if needed. We will keep him off aspirin and Plavix. Once the endoscopy done, we will follow medical treatment and once the patient start dialysis will consider cardiac catheterization. We will follow with you. We will hold aspirin, we will hold Plavix. Discussed with Dr. Bloom, he will do endoscopy once aspirin. The patient Plavix was on hold, last dose . The patient can have colonoscopy on Wednesday and then endoscopy. We will put clear . Thank you Dr. Hoffman for providing us the opportunity in taking care of the patient, Javier. Anyi Jacobo MD
--- NOTE | 2018-07-15 13:59 | CP.PCM.PN ---
<Tin Multani - Last Filed: 07/15/18 13:56> Subjective - Date & Time of Evaluation Date of Evaluation: 07/15/18 Time of Evaluation: 13:56 - Subjective Subjective: Nephrology Progress Note for Dr. Victoriano Multani PGY2 Patient seen and examined this morning. No acute events reported overnight. Patient states he feels achy through out his entire body. He reports that it is slightly improved from admission. Denies abdominal pain, urianry complaints, flank pain, chest pain, shortness of breath, nausea, vomiting, fever, chills. Objective - Vital Signs/Intake and Output Vital Signs (last 24 hours): Temp Pulse Resp BP Pulse Ox 98.2 F 74 18 129/71 100 07/15/18 06:00 07/15/18 06:00 07/15/18 06:00 07/15/18 09:49 07/15/18 06:00 Intake and Output: 07/15/18 07/15/18 06:59 18:59 Intake Total 1999 Balance 1999 - Medications Medications: Current Medications Amitriptyline HCl (Elavil) 10 mg PO HS [facility] Last Admin: 07/14/18 21:35 Dose: 10 mg Amlodipine Besylate (Norvasc) 10 mg PO DAILY [facility] Last Admin: 07/15/18 09:49 Dose: 10 mg Aspirin (Ecotrin) 81 mg PO DAILY [facility] Last Admin: 07/15/18 09:49 Dose: 81 mg Atorvastatin Calcium (Lipitor) 40 mg PO DIN [facility] Last Admin: 07/14/18 17:14 Dose: 40 mg Calcitriol (Rocaltrol) 0.25 mcg PO MON [facility] Chlorthalidone (Hygroton) 25 mg PO QOTHERDAY [facility] Last Admin: 07/14/18 10:16 Dose: 25 mg Clopidogrel Bisulfate (Plavix) 75 mg PO DAILY [facility] Last Admin: 07/14/18 10:16 Dose: 75 mg Donepezil HCl (Aricept) 10 mg PO HS [facility] Last Admin: 07/14/18 21:35 Dose: 10 mg Ezetimibe (Zetia) 10 mg PO DAILY [facility] Last Admin: 07/15/18 09:49 Dose: 10 mg Ferrous Sulfate (Feosol) 324 mg PO BID [facility] Last Admin: 07/15/18 09:48 Dose: 324 mg Gabapentin (Neurontin) 300 mg PO DAILY [facility]; Protocol Last Admin: 07/15/18 09:58 Dose: Not Given Sodium Chloride (Sodium Chloride 0.45%) 1,000 mls @ 70 mls/hr IV .[id number] [facility] Last Admin: 07/15/18 05:45 Dose: 70 mls/hr Insulin Human Regular (Humulin R Low) 0 units SC ACHS [facility]; Protocol Last Admin: 07/15/18 12:06 Dose: 1 unit Memantine (Namenda) 10 mg PO DAILY [facility] Last Admin: 07/15/18 09:49 Dose: 10 mg Non-Formulary Medication (Nebivolol [Bystolic]) 5 mg PO DAILY [facility] Last Admin: 07/15/18 09:58 Dose: Not Given Pantoprazole Sodium (Protonix Ec Tab) 40 mg PO 0600 [facility] Last Admin: 07/15/18 05:42 Dose: 40 mg Ropinirole HCl (Requip) 0.25 mg PO DAILY [facility] Last Admin: 07/15/18 09:48 Dose: 0.25 mg Tamsulosin HCl (Flomax) 0.4 mg PO DAILY [facility] Last Admin: 07/15/18 09:49 Dose: 0.4 mg - Labs Labs: 07/15/18 06:10 07/15/18 06:10 PT 11.5 SECONDS (9.4-12.5) 07/12/18 13:10 INR 1.04 07/12/18 13:10 APTT 36.1 Seconds (26.9-38.3) 07/12/18 13:10 - Constitutional Appears: Non-toxic, No Acute Distress - Head Exam Head Exam: ATRAUMATIC, NORMOCEPHALIC - Eye Exam Eye Exam: EOMI, PERRL - ENT Exam ENT Exam: Mucous Membranes Moist, Normal Exam - Neck Exam Neck Exam: Full ROM - Respiratory Exam Respiratory Exam: Clear to Ausculation Bilateral, NORMAL BREATHING PATTERN. absent: Rales, Rhonchi, Wheezes - Cardiovascular Exam Cardiovascular Exam: REGULAR RHYTHM, +S1, +S2 - GI/Abdominal Exam GI & Abdominal Exam: Soft, Normal Bowel Sounds. absent: Tenderness, Hyperactive Bowel Sounds - Extremities Exam Extremities Exam: Full ROM, Normal Capillary Refill. absent: Calf Tenderness, Pedal Edema - Neurological Exam Neurological Exam: Alert, Awake, CN II-XII Intact, Normal Gait, Oriented x3 Neuro motor strength exam: Left Upper Extremity: 5, Right Upper Extremity: 5, Left Lower Extremity: 5, Right Lower Extremity: 5 - Psychiatric Exam Psychiatric exam: Normal Affect, Normal Mood - Skin Skin Exam: Dry, Warm Assessment and Plan - Assessment and Plan (Free Text) Assessment: -VILMA on CKD likely secondary to volume depletion - improving -CKD stage IV likely secondary to combination of diabetic nephropathy and long standing HTN -Anemia of Chronic disease -Secondary Hyperparathyroidism -CAD -HTN -DM -HLD Patient renal function improving on today's labs with Cr of 3.4. Patient with elevated Cr on admission signaling an VILMA on CKD picture likely secondary to volume loss. Patient is making urine, continue to monitor. Continue oral intake. Continue to monitor electrolytes and replete as necessary. Maintain euvolemia, normotensive BP, and avoid nephrotoxic agents. Patient with AV fistula for past 6 months. Will continue to monitor urine output and renal function as IV fluid replacement. Continue calcitriol for secondary hyperpathyroidism. Patient to continue ASA, Plavix, atorvastatin for CAD and HLD. Continue norvasc and bystolic for BP control. Continue ferrous sulfate for iron deficiency. Continue statin and zetia for HLD. Continue Insulin sliding scale for DM2 control. <Jose Pastrana S - Last Filed: 07/15/18 15:45> Objective - Vital Signs/Intake and Output Vital Signs (last 24 hours): Temp Pulse Resp BP Pulse Ox 98.2 F 74 18 129/71 100 07/15/18 06:00 07/15/18 06:00 07/15/18 06:00 07/15/18 09:49 07/15/18 06:00 Intake and Output: 07/15/18 07/15/18 06:59 18:59 Intake Total 1999 Balance 1999 - Medications Medications: Current Medications Amitriptyline HCl (Elavil) 10 mg PO HS [facility] Last Admin: 07/14/18 21:35 Dose: 10 mg Amlodipine Besylate (Norvasc) 10 mg PO DAILY [facility] Last Admin: 07/15/18 09:49 Dose: 10 mg Aspirin (Ecotrin) 81 mg PO DAILY [facility] Last Admin: 07/15/18 09:49 Dose: 81 mg Atorvastatin Calcium (Lipitor) 40 mg PO DIN [facility] Last Admin: 07/14/18 17:14 Dose: 40 mg Calcitriol (Rocaltrol) 0.25 mcg PO MON [facility] Chlorthalidone (Hygroton) 25 mg PO QOTHERDAY [facility] Last Admin: 07/14/18 10:16 Dose: 25 mg Clopidogrel Bisulfate (Plavix) 75 mg PO DAILY [facility] Last Admin: 07/14/18 10:16 Dose: 75 mg Donepezil HCl (Aricept) 10 mg PO HS [facility] Last Admin: 07/14/18 21:35 Dose: 10 mg Ezetimibe (Zetia) 10 mg PO DAILY [facility] Last Admin: 07/15/18 09:49 Dose: 10 mg Ferrous Sulfate (Feosol) 324 mg PO BID [facility] Last Admin: 07/15/18 09:48 Dose: 324 mg Gabapentin (Neurontin) 300 mg PO DAILY [facility]; Protocol Last Admin: 07/15/18 09:58 Dose: Not Given Sodium Chloride (Sodium Chloride 0.45%) 1,000 mls @ 70 mls/hr IV .[id number] [facility] Last Admin: 07/15/18 05:45 Dose: 70 mls/hr Insulin Human Regular (Humulin R Low) 0 units SC ACHS [facility]; Protocol Last Admin: 07/15/18 12:06 Dose: 1 unit Memantine (Namenda) 10 mg PO DAILY [facility] Last Admin: 07/15/18 09:49 Dose: 10 mg Non-Formulary Medication (Nebivolol [Bystolic]) 5 mg PO DAILY [facility] Last Admin: 07/15/18 09:58 Dose: Not Given Pantoprazole Sodium (Protonix Ec Tab) 40 mg PO 0600 [facility] Last Admin: 07/15/18 05:42 Dose: 40 mg Ropinirole HCl (Requip) 0.25 mg PO DAILY [facility] Last Admin: 07/15/18 09:48 Dose: 0.25 mg Tamsulosin HCl (Flomax) 0.4 mg PO DAILY [facility] Last Admin: 07/15/18 09:49 Dose: 0.4 mg - Labs Labs: 07/15/18 06:10 07/15/18 06:10 PT 11.5 SECONDS (9.4-12.5) 07/12/18 13:10 INR 1.04 07/12/18 13:10 APTT 36.1 Seconds (26.9-38.3) 07/12/18 13:10 Assessment and Plan - Assessment and Plan (Free Text) Assessment: Pt seen and examined by me. I have reviewed the note of the internist medical doctor md and I agree with it. I have discussed the assessment and plan with the resident. I have reviewed the medications and the last labs.
--- NOTE | 2018-07-15 21:41 | PN ---
DATE: 07/15/2018 PULMONARY PROGRESS NOTE REFERRING PHYSICIAN: Gill Hoffman MD SUBJECTIVE: He is lying in the bed,head at 45 degrees. Still having some epigastric discomfort. Cough is little better. No nausea. No dysuria, leg pain or leg swelling. OBJECTIVE: GENERAL: In no acute distress. VITAL SIGNS: Temperature is 98, heart rate is 82, respiratory rate is 20, blood pressure is 118/65, and pulse ox is 97% on room air. HEENT: Moist mucous membranes. No ulcer or thrush noted. NECK: Supple. No JVD. LUNGS: Has a fair airflow with rhonchi. HEART: S1 and S2. ABDOMEN: Mild epigastric tenderness. EXTREMITIES: There is no edema. NEUROLOGIC: Awake, alert, and follows simple command. MEDICATIONS: He is on Aricept 10 mg daily, Ecotrin 81 mg daily, Elavil 10 mg at bedtime, ferrous sulfate 324 mg twice a day, Flomax 0.4 mg twice a day, insulin coverage, Hygroton mg and Wednesday, Lipitor 40 mg daily, Namenda 10 mg daily, Bystolic 5 mg daily, gabapentin 300 mg at bedtime, Norvasc 10 mg daily, Plavix 75 mg daily, Protonix 40 mg daily, Requip 0.25 mg daily, calcitriol 0.25 mg Wednesday, also getting sodium bicarb 650 mg twice a day, and Zetia 10 mg daily. LABORATORY DATA: Shows hemoglobin 11.7, hematocrit 36, WBC 9.1, and platelet count is 225. Sodium 141, potassium 4, chloride 108, bicarbonate 25, BUN 37, creatinine 3.4, glucose 108, calcium is 8.8, phosphorus 3.7, and magnesium 2.2. IMPRESSION AND PLAN: Chronic cough, probably secondary to gastroparesis, diabetes, extensive coronary artery disease, hypertension, hyperlipidemia, renal insufficiency, and may have a component of sleep apnea syndrome. Pulmonary point of view, doing okay, keep head at 45 degrees, bronchodilator, pump inhibitors, gastroesophageal reflux disease precaution, gastric prophylaxis, deep vein thrombosis prophylaxis, being followed by GI, also been followed by Cardiology, and does have a history of extensive coronary artery disease with multiple stents in the past. Thank you and we will follow with you. Anyi Borja MD
--- NOTE | 2018-07-15 21:45 | PN ---
DATE: 07/15/2018 The patient was seen and examined. I do agree with the note of the medical care manager. I was involved in the plan of care. The patient has CKD with acute kidney injury. The patient's creatinine is improving. His creatinine is 3.4. The patient was found euvolemic. The patient's blood pressure is controlled. He has chronic anemia. Hemoglobin is acceptable. The patient has secondary hyperparathyroidism. He is on a renal diet. He is going to continue with Requip for his neuropathy. He is on calcitriol for secondary hyperparathyroidism. He is on Lipitor for dyslipidemia. I will discontinue his IV fluids at this time. He is currently receiving a pureed diet. Jose Pastrana MD
--- NOTE | 2018-07-16 02:10 | PN ---
DATE: 07/15/2018 SUBJECTIVE: This is a 63-year-old patient, came in with shortness of breath, fatigue, cough, congestion. He has a past medical history of diabetes mellitus, coronary artery disease with stenting, hyperlipidemia, prostate disorder, hypertension, peripheral vascular disease, anemia. The patient was seen at the bedside today. He was alert and oriented x3. Denies shortness of breath, palpitation, abdominal pain, hemoptysis. He did have some complaint of occasional cough with light phlegm. PHYSICAL EXAMINATION: VITAL SIGNS: Temperature 98.4, pulse rate 82, blood pressure 118/65, respirations 20, O2 sat 97% on room air. GENERAL APPEARANCE: No acute distress. Chronically ill. HEENT: Normocephalic. PERRLA. Mucous membranes moist. RESPIRATORY: Clear to auscultation. No adventitious breath sounds. CARDIAC: S1, S2. No murmur. No gallop. GASTROINTESTINAL: Abdomen soft, nontender. No guarding. Bowel sounds present. SKIN: Intact. No cyanosis. EXTREMITIES: No edema. NEUROLOGIC: The patient is alert and oriented x3. Cranial nerves II through XII intact. No focal deficits. MEDICATIONS: The patient is on Elavil 10 mg p.o. at bedtime, Norvasc 10 mg p.o. daily, aspirin daily, Lipitor 40 mg, calcitriol 0.25 mcg weekly, chlorthalidone 25 mg p.o. every other day, Plavix 75 mg, Aricept 10 mg at bedtime, Zetia 10 mg p.o. The patient is on iron 324 mg b.i.d., Neurontin 300 mg at bedtime. The patient is getting AccuChek before meals at bedtime for insulin coverage, Namenda 10 mg p.o., Bystolic 5 mg daily, Protonix 40 mg, tamsulosin 0.4 mg p.o. b.i.d. LABORATORY DATA: White blood cells of 9.1, hemoglobin of 11.7, hematocrit 36, platelet count 225. Chemistry for today, sodium 141, potassium 4, BUN 37, creatinine 3.4, glucose was 243, PT was of 07/12/2018 towards 11.5, INR was 1.04. ASSESSMENT AND PLAN: This is a 63-year-old male, came in with shortness of breath, chest pain, fatigue, abdominal pain, general weakness with diagnosis of renal failure syndrome. The patient has diabetes mellitus, hyperlipidemia, benign prostatic hyperplasia, hypertension, anemia, chronic renal failure. The patient is being followed by Cardiology, Gastrointestinal, Pulmonology. The patient will be receiving endoscopy and colonoscopy before discharge. The patient receiving before meals at bedtime AccuCheks and coverage as warranted. He will be treated with Lipitor, Norvasc, Hygroton 25 mg daily, Aricept, Flomax. We will follow up the patient's labs. Monitor blood sugars. Monitor blood pressure. We will monitor any shortness of breath. Nephrology is also on the case. We will follow up. Pt is seen and examined and examined at bed side , d/d with director of engineering agreed with her plan, llabs , meds and chart noted , will f/u Jan Vicente APN Gill Hoffman MD MTDEva
[2018-07-16] MEDS: Pantoprazole 40 mg EC Tab PO SCH (05:20)
--- NOTE | 2018-07-16 06:57 | CP.PCM.PN ---
Subjective - Date & Time of Evaluation Date of Evaluation: 07/16/18 Time of Evaluation: 06:30 - Subjective Subjective: Lying in bed, awake, alert, no distress Reason for consultation and follow up: Cardiac evaluation of coronary artery disease, hypertension, admitted for abdominal pain and generalized weakness, History of coronary artery disease, post multiple stents, status post ND, history of chronic renal insufficiency, diabetes,hypertension, h yperlipidemia,diabetic retinopathy, Seen and examined by me and Dr. Jacobo Objective - Vital Signs/Intake and Output Vital Signs (last 24 hours): Temp Pulse Resp BP Pulse Ox 98.4 F 82 20 118/65 97 07/15/18 18:00 07/15/18 18:00 07/15/18 18:00 07/15/18 18:00 07/15/18 18:00 Intake and Output: 07/15/18 07/16/18 18:59 06:59 Intake Total 420 Balance 420 - Medications Medications: Current Medications Amitriptyline HCl (Elavil) 10 mg PO HS [facility] Last Admin: 07/15/18 21:40 Dose: 10 mg Amlodipine Besylate (Norvasc) 10 mg PO DAILY [facility] Last Admin: 07/15/18 09:49 Dose: 10 mg Aspirin (Ecotrin) 81 mg PO DAILY [facility] Last Admin: 07/15/18 09:49 Dose: 81 mg Atorvastatin Calcium (Lipitor) 40 mg PO DIN [facility] Last Admin: 07/15/18 17:28 Dose: 40 mg Calcitriol (Rocaltrol) 0.25 mcg PO MON [facility] Chlorthalidone (Hygroton) 25 mg PO QOTHERDAY [facility] Last Admin: 07/14/18 10:16 Dose: 25 mg Clopidogrel Bisulfate (Plavix) 75 mg PO DAILY [facility] Last Admin: 07/14/18 10:16 Dose: 75 mg Donepezil HCl (Aricept) 10 mg PO HS [facility] Last Admin: 07/15/18 21:40 Dose: 10 mg Ezetimibe (Zetia) 10 mg PO DAILY [facility] Last Admin: 07/15/18 09:49 Dose: 10 mg Ferrous Sulfate (Feosol) 324 mg PO BID [facility] Last Admin: 07/15/18 17:28 Dose: 324 mg Gabapentin (Neurontin) 300 mg PO [facility]; Protocol Last Admin: 07/15/18 21:40 Dose: 300 mg Insulin Human Regular (Humulin R Low) 0 units SC [facility]; Protocol Last Admin: 07/15/18 21:40 Dose: Not Given Memantine (Namenda) 10 mg PO DAILY [facility] Last Admin: 07/15/18 09:49 Dose: 10 mg Non-Formulary Medication (Nebivolol [Bystolic]) 5 mg PO DAILY [facility] Last Admin: 07/15/18 09:58 Dose: Not Given Pantoprazole Sodium (Protonix Ec Tab) 40 mg PO 0600 [facility] Last Admin: 07/16/18 05:20 Dose: 40 mg Ropinirole HCl (Requip) 0.25 mg PO DAILY [facility] Last Admin: 07/15/18 09:48 Dose: 0.25 mg Sodium Bicarbonate (Sodium Bicarbonate Tab) 650 mg PO BID [facility] Tamsulosin HCl (Flomax) 0.4 mg PO BID [facility] - Labs Labs: 07/15/18 06:10 07/15/18 06:10 PT 11.5 SECONDS (9.4-12.5) 07/12/18 13:10 INR 1.04 07/12/18 13:10 APTT 36.1 Seconds (26.9-38.3) 07/12/18 13:10 - Constitutional Appears: Non-toxic, No Acute Distress - Head Exam Head Exam: NORMAL INSPECTION, NORMOCEPHALIC - Eye Exam Eye Exam: Normal appearance Pupil Exam: NORMAL ACCOMODATION - ENT Exam ENT Exam: Mucous Membranes Moist, Normal Exam - Respiratory Exam Respiratory Exam: Decreased Breath Sounds, Clear to Ausculation Bilateral, NORMAL BREATHING PATTERN - Cardiovascular Exam Cardiovascular Exam: +S1, +S2 - GI/Abdominal Exam GI & Abdominal Exam: Soft, Normal Bowel Sounds - Extremities Exam Extremities Exam: Full ROM, Normal Capillary Refill Additional comments: left AV fistula, positive bruit - Neurological Exam Neurological Exam: Alert, Awake, Oriented x3 - Psychiatric Exam Psychiatric exam: Normal Affect, Normal Mood - Skin Skin Exam: Dry, Normal Color, Warm Assessment and Plan - Assessment and Plan (Free Text) Assessment: A 63 year male who came in to the ER due to generalized weakness and abdominal pain. History of coronary artery disease, post multiple stents, status post ND, history of chronic renal insufficiency, diabetes,hypertension, hyp erlipidemia,diabetic retinopathy,neuropathy, nephropathy,gastroparesis,pneumonia, anemia,pancreatitis. Echo done on 05/19/18 showed LVEF 40-45%, trace aortic and tricuspid regurgitation, trace to mild regurgitation. Stress done on 05/19/18 showed mid to distal anteroseptal and apical defect suspicious of ischemia. LVEF 52%. So far no evidence of acute ischemia, denies chest pain or shortness of breath. Aggressive medical treatment. Cardiac catheterization once renal function stabilized and or hem odiaysis initiated. GI work up in progress. Cleared for procedure with moderate risk. For endoscopy and colonoscopy next week. Held Aspirin and Plavix at least 5 days for procedure. Tolerating oral intake, on puree diet. Plan: For EGD/colonoscopy with biopsy next week GI work up in progress Denies chest pain or shortness of breath Heart rate stable Blood pressure stable IV fluids discontinued, tolerating oral intake On Norvasc 10 mg daily, ASA 81 mg daily, Lipitor 40 mg daily Plavix 75 mg daily Continue to hold Plavix and Aspirin for procedure for at least 5 days last dose of Plavix was given 07/14/18 and ASA 07/15/18. Continue current treatment Continue current medications Will follow up Plan and treatment discussed with Dr. Jacobo
[2018-07-16] MEDS: Insulin Reg-LOW-Coverage SC SCH ×4 (08:20→21:47)
--- NOTE | 2018-07-16 10:37 | PN ---
DATE: 07/16/2018 PULMONARY PROGRESS NOTE REFERRING PHYSICIAN: Dr. Gill Hoffman. SUBJECTIVE: The patient is seen sitting up in bed. No acute distress. No overnight events reported. No headache, rhinitis, cough, shortness of breath, chest pain, abdominal pain, nausea, vomiting, diarrhea, leg pain, or leg swelling reported. OBJECTIVE: GENERAL: No acute distress. VITAL SIGNS: Blood pressure 147/80, pulse 78, temperature 98.8, and oxygen saturation 97% on room air. HEENT: Moist mucous membranes. NECK: Supple. No JVD. LUNGS: Fair airflow bilaterally. CARDIOVASCULAR: S1 and S2. ABDOMEN: Soft and nontender. No distention. No organomegaly. EXTREMITIES: No bilateral lower extremity edema. NEUROLOGIC: Awake, alert, and verbal; following commands. MEDICATIONS: Reviewed. Elavil 10 mg at bedtime, Norvasc 10 mg daily, aspirin 81 mg daily, Lipitor 40 mg at dinner, calcitriol 0.25 mcg on Mondays, chlorthalidone 25 mg every other day, Plavix 75 mg daily, Aricept 10 mg at bedtime, Zetia 10 mg daily, ferrous sulfate 324 mg twice a day, gabapentin 300 mg at bedtime, Humulin R sliding scale a.c. and at bedtime, Namenda 10 mg daily, Bystolic 5 mg daily, Protonix 40 mg daily, Requip 0.25 mg daily, sodium bicarbonate 650 mg twice a day, Flomax 0.4 mg twice a day, and Ultram 50 mg three times a day p.r.n. LABORATORY DATA: Reviewed. POC glucose 136. Stool for C. diff negative. Stool for ova and parasite negative. IMPRESSION AND PLAN: Chronic cough probably secondary to gastroparesis, diabetes mellitus, extensive coronary artery disease, hypertension, hyperlipidemia, renal insufficiency, suspected sleep apnea syndrome, coronary artery disease status post multiple stents in the past status post myocardial infarction, history of chronic renal insufficiency, neuropathy, nephropathy, anemia, and history of pancreatitis. Continue gastrointestinal workup. The patient is for esophagogastroduodenoscopy colonoscopy with biopsy next week. Continue Cardiology followup. Pulmonary point of view, head of bed elevated at 45 degrees, continue inhaled bronchodilators, gastric prophylaxis, deep venous thrombosis prophylaxis. We recommend close cardiopulmonary monitoring while sedated. Recommend the patient have sleep study as outpatient and full pulmonary function test as outpatient. This patient was seen and examined with Dr. Borja. Discussed assessment and plan as described above. This patient was seen and examined with Fortino Guzman, nurse practitioner. Discussed assessment and plan as described above. Thank you for this consult. We will follow with you. Fortino Guzman APN Anyi Borja MD
--- NOTE | 2018-07-16 11:05 | PN ---
DATE: 07/16/2018 SUBJECTIVE: The patient has no complaints of any chest pain. No shortness of breath. No headache. PHYSICAL EXAMINATION: VITAL SIGNS: Temperature is 98.8, pulse of 78, blood pressure is 147/80, and respiration is 20. GENERAL: The patient is lying in bed, flat, comfortable. HEENT: No oral lesion. Anicteric sclerae. Moist mucosa. NECK: No JVD, adenopathy, or thyromegaly. CARDIOVASCULAR: S1 and S2, regular. No murmurs, rubs, or gallops. LUNGS: Clear to auscultation bilaterally. No wheeze, rales, or rhonchi. ABDOMEN: Bowel sounds are positive, soft, nontender and nondistended. EXTREMITIES: No cyanosis, clubbing or edema. LABORATORY DATA: White count of 9.1, hemoglobin is 11.7, and creatinine is 3.4. ASSESSMENT: 1. Acute kidney injury. 2. Secondary . 3. Left arteriovenous fistula. 4. Dyslipidemia. 5. Myalgias. 6. Hypertension. 7. Diabetes type 2. 8. Diabetic nephropathy. PLAN: The patient is currently comfortable. He is on aspirin daily. The patient is on Flomax for his BPH. He is receiving Lipitor for dyslipidemia. The patient is on Neurontin for neuropathy. He is on calcitriol once a week, this will be continued. He is on Zetia for his dyslipidemia. The creatinine remains stable, that the last one was 3.4. He continues to complain of myalgias. Jose Pastrana MD
[2018-07-16] MEDS: Non Formulary Medication (Nebivolol [Bystolic] 5 MG) PO SCH (12:30)
[2018-07-17] MEDS: Pantoprazole 40 mg EC Tab PO SCH (06:05)
[2018-07-17 07:02] LABS: CALCIUM 8.7 mg/dL (8.4-10.5)
--- NOTE | 2018-07-17 07:09 | CP.PCM.PN ---
Subjective - Date & Time of Evaluation Date of Evaluation: 07/17/18 Time of Evaluation: 06:40 - Subjective Subjective: Easily awaken. Lying in bed, alert, no distress Reason for consultation and follow up: Cardiac evaluation of coronary artery disease, hypertension, admitted for abdominal pain and generalized weakness, History of coronary artery disease, post multiple stents, status post KS, history of chronic renal insufficiency, diabetes,hypertension, hyperlipidemia,diabetic retinopathy, Seen and examined by me and Dr. Jacobo Objective - Vital Signs/Intake and Output Vital Signs (last 24 hours): Temp Pulse Resp BP Pulse Ox 98.4 F 83 16 132/82 98 07/16/18 16:34 07/16/18 16:34 07/16/18 16:34 07/16/18 16:34 07/16/18 16:34 Intake and Output: 07/17/18 07/17/18 06:59 18:59 Intake Total 1920 Balance 1920 - Medications Medications: Current Medications Amitriptyline HCl (Elavil) 10 mg PO HS [facility] Last Admin: 07/16/18 21:49 Dose: 10 mg Amlodipine Besylate (Norvasc) 10 mg PO DAILY [facility] Last Admin: 07/16/18 09:13 Dose: 10 mg Aspirin (Ecotrin) 81 mg PO DAILY [facility] Last Admin: 07/16/18 09:04 Dose: 81 mg Atorvastatin Calcium (Lipitor) 40 mg PO DIN [facility] Last Admin: 07/16/18 17:34 Dose: 40 mg Calcitriol (Rocaltrol) 0.25 mcg PO MON [facility] Chlorthalidone (Hygroton) 25 mg PO QOTHERDAY [facility] Last Admin: 07/16/18 09:04 Dose: 25 mg Clopidogrel Bisulfate (Plavix) 75 mg PO DAILY [facility] Last Admin: 07/14/18 10:16 Dose: 75 mg Donepezil HCl (Aricept) 10 mg PO HS [facility] Last Admin: 07/16/18 21:47 Dose: 10 mg Ezetimibe (Zetia) 10 mg PO DAILY [facility] Last Admin: 07/16/18 09:04 Dose: 10 mg Ferrous Sulfate (Feosol) 324 mg PO BID [facility] Last Admin: 07/16/18 17:34 Dose: 324 mg Gabapentin (Neurontin) 300 mg PO HS [facility]; Protocol Last Admin: 07/16/18 21:47 Dose: 300 mg Insulin Human Regular (Humulin R Low) 0 units SC [facility]; Protocol Last Admin: 07/16/18 21:47 Dose: Not Given Memantine (Namenda) 10 mg PO DAILY [facility] Last Admin: 07/16/18 09:05 Dose: 10 mg Non-Formulary Medication (Nebivolol [Bystolic]) 5 mg PO DAILY [facility] Last Admin: 07/16/18 12:30 Dose: Not Given Pantoprazole Sodium (Protonix Ec Tab) 40 mg PO 0600 [facility] Last Admin: 07/17/18 06:05 Dose: 40 mg Ropinirole HCl (Requip) 0.25 mg PO DAILY [facility] Last Admin: 07/16/18 10:38 Dose: Not Given Sodium Bicarbonate (Sodium Bicarbonate Tab) 650 mg PO BID [facility] Last Admin: 07/16/18 17:37 Dose: 650 mg Tamsulosin HCl (Flomax) 0.4 mg PO BID [facility] Last Admin: 07/16/18 17:34 Dose: 0.4 mg Tramadol HCl (Ultram) 50 mg PO TID PRN PRN Reason: Pain, severe (8-10) Last Admin: 07/16/18 17:37 Dose: 50 mg - Labs Labs: 07/15/18 06:10 07/17/18 06:00 PT 11.5 SECONDS (9.4-12.5) 07/12/18 13:10 INR 1.04 07/12/18 13:10 APTT 36.1 Seconds (26.9-38.3) 07/12/18 13:10 - Constitutional Appears: Non-toxic, No Acute Distress - Head Exam Head Exam: NORMAL INSPECTION, NORMOCEPHALIC - Eye Exam Eye Exam: Normal appearance Pupil Exam: NORMAL ACCOMODATION - ENT Exam ENT Exam: Mucous Membranes Moist, Normal Exam - Respiratory Exam Respiratory Exam: Decreased Breath Sounds, Clear to Ausculation Bilateral, NORMAL BREATHING PATTERN - Cardiovascular Exam Cardiovascular Exam: +S1, +S2 - GI/Abdominal Exam GI & Abdominal Exam: Soft, Normal Bowel Sounds - Extremities Exam Extremities Exam: Full ROM, Normal Capillary Refill - Neurological Exam Neurological Exam: Alert, Awake, Oriented x3 - Psychiatric Exam Psychiatric exam: Normal Affect, Normal Mood - Skin Skin Exam: Dry, Normal Color, Warm Assessment and Plan - Assessment and Plan (Free Text) Assessment: A 63 year male who came in to the ER due to generalized weakness and abdominal pain. History of coronary artery disease, post multiple stents, status post KS, history of chronic renal insufficiency, diabetes,hypertension, hyperlipidemia,diabetic retinopathy,neuropathy, nephropathy,gastroparesis ,pneumonia, anemia,pancreatitis. Echo done on 05/19/18 showed LVEF 40-45%, trace aortic and tricuspid regurgitation, trace to mild regurgitation. Stress done on 05/19/18 showed mid to distal anteroseptal and apical defect suspicious of ischemia. LVEF 52%. So far no evidence of acute ischemia, denies chest pain or shortness of breath. Aggressive medical treatment. Cardiac catheterization once renal function stabilized and or hemodiaysis initiated. GI work up in progress. Cleared for procedure with moderate risk. For endoscopy and colonoscopy with polypectomy possibly Wednesday. Held Aspirin and Plavix at least 5 days for procedure. Tolerating oral intake, on puree diet. Plan: For EGD/colonoscopy with polypectomy possibly Wednesday Held Aspirin and Plavix Denies chest pain or shortness of breath Heart rate stable Blood pressure stable IV fluids discontinued, tolerating oral intake On Norvasc 10 mg daily, ASA 81 mg daily, Lipitor 40 mg daily Plavix 75 mg daily Continue current treatment Continue current medications Glucose control Will follow up Plan and treatment discussed with Dr. Jacobo
[2018-07-17] MEDS: Insulin Reg-LOW-Coverage SC SCH ×4 (08:42→23:20)
[2018-07-17] MEDS: Non Formulary Medication (Nebivolol [Bystolic] 5 MG) PO SCH (09:37)
--- NOTE | 2018-07-17 12:35 | CP.PCM.PN ---
<Amalia Stacy - Last Filed: 07/17/18 12:43> Subjective - Date & Time of Evaluation Date of Evaluation: 07/17/18 Time of Evaluation: 12:29 - Subjective Subjective: Gastroenterology Fellow/PGY6 Progress Note Patient notes mild mid-abdominal pain. Tolerating diet. No bowel movement for last two days. A 12-point review of systems negative except for as above. Objective - Vital Signs/Intake and Output Vital Signs (last 24 hours): Temp Pulse Resp BP Pulse Ox 98 F 67 18 143/76 98 07/17/18 08:15 07/17/18 08:15 07/17/18 08:15 07/17/18 09:39 07/17/18 08:15 Intake and Output: 07/17/18 07/17/18 06:59 18:59 Intake Total 1920 Balance 1920 - Medications Medications: Current Medications Amitriptyline HCl (Elavil) 10 mg PO HS [facility] Last Admin: 07/16/18 21:49 Dose: 10 mg Amlodipine Besylate (Norvasc) 10 mg PO DAILY [facility] Last Admin: 07/17/18 09:39 Dose: 10 mg Aspirin (Ecotrin) 81 mg PO DAILY [facility] Last Admin: 07/17/18 09:39 Dose: 81 mg Atorvastatin Calcium (Lipitor) 40 mg PO DIN [facility] Last Admin: 07/16/18 17:34 Dose: 40 mg Calcitriol (Rocaltrol) 0.25 mcg PO MON [facility] Chlorthalidone (Hygroton) 25 mg PO QOTHERDAY [facility] Last Admin: 07/16/18 09:04 Dose: 25 mg Clopidogrel Bisulfate (Plavix) 75 mg PO DAILY [facility] Last Admin: 07/14/18 10:16 Dose: 75 mg Donepezil HCl (Aricept) 10 mg PO HS [facility] Last Admin: 07/16/18 21:47 Dose: 10 mg Ezetimibe (Zetia) 10 mg PO DAILY [facility] Last Admin: 07/17/18 09:39 Dose: 10 mg Ferrous Sulfate (Feosol) 324 mg PO BID [facility] Last Admin: 07/17/18 09:39 Dose: 324 mg Gabapentin (Neurontin) 300 mg PO [facility]; Protocol Last Admin: 07/16/18 21:47 Dose: 300 mg Insulin Human Regular (Humulin R Low) 0 units SC [facility]; Protocol Last Admin: 07/17/18 08:42 Dose: 1 unit Memantine (Namenda) 10 mg PO DAILY [facility] Last Admin: 07/17/18 09:39 Dose: 10 mg Non-Formulary Medication (Nebivolol [Bystolic]) 5 mg PO DAILY [facility] Last Admin: 07/17/18 09:37 Dose: Not Given Pantoprazole Sodium (Protonix Ec Tab) 40 mg PO 0600 [facility] Last Admin: 07/17/18 06:05 Dose: 40 mg Ropinirole HCl (Requip) 0.25 mg PO DAILY [facility] Last Admin: 07/17/18 09:39 Dose: 0.25 mg Sodium Bicarbonate (Sodium Bicarbonate Tab) 650 mg PO BID [facility] Last Admin: 07/17/18 09:39 Dose: 650 mg Tamsulosin HCl (Flomax) 0.4 mg PO BID [facility] Last Admin: 07/17/18 09:39 Dose: 0.4 mg Tramadol HCl (Ultram) 50 mg PO TID PRN PRN Reason: Pain, severe (8-10) Last Admin: 07/17/18 09:46 Dose: 50 mg - Labs Labs: 07/15/18 06:10 07/17/18 06:00 PT 11.5 SECONDS (9.4-12.5) 07/12/18 13:10 INR 1.04 07/12/18 13:10 APTT 36.1 Seconds (26.9-38.3) 07/12/18 13:10 - Constitutional Appears: Non-toxic, No Acute Distress - Head Exam Head Exam: ATRAUMATIC, NORMOCEPHALIC - Eye Exam Eye Exam: EOMI, PERRL. absent: Scleral icterus Pupil Exam: PERRL. absent: Miosis, Mydriatic - ENT Exam ENT Exam: Mucous Membranes Moist, Normal Oropharynx - Neck Exam Neck Exam: Full ROM, Normal Inspection - Respiratory Exam Respiratory Exam: Clear to Ausculation Bilateral. absent: Rales, Rhonchi, Wheezes - Cardiovascular Exam Cardiovascular Exam: RRR, +S1, +S2. absent: Gallop, Rubs - GI/Abdominal Exam GI & Abdominal Exam: Soft, Normal Bowel Sounds. absent: Distended, Firm, Guarding, Rigid, Tenderness, Organomegaly, Rebound - Extremities Exam Extremities Exam: Normal Inspection. absent: Pedal Edema - Neurological Exam Neurological Exam: Alert, Awake - Psychiatric Exam Psychiatric exam: Normal Affect, Normal Mood - Skin Skin Exam: Dry, Intact, Normal Color, Warm Assessment and Plan - Assessment and Plan (Free Text) Assessment: 63 year old male with PMH of Diabetes, CAD/AL s/p stents (8), HTN, and HLD presenting with subjective fever and epigastric pain for 2 weeks. Active treatment of concern for gastroparesis and persistent abdominal pain with no acute pathology on CT or Ultrasound. Prior EGD 04/2016 showed H. pylori positive gastritis. Colonoscopy 04/2016 showed five sub-cm hyperplastic/tubular adenomas, diverticulosis, and internal hemorrhoids. EGD 04/2017 showed gastritis and gastroparesis- no biopsy due to anticoagulation. Colonoscopy 07/2017 showed 5 sub-cm polyps with no biopsy due to anticoagulation. Plan: -plan for EGD and colonoscopy on Wednesday -last dose Plavix 07/13/18 -tolerating puree diet -continue PPI ACB -consider Miralax for constipation -will follow clinical course <Jefferson Bloom V - Last Filed: 07/17/18 16:03> Objective - Vital Signs/Intake and Output Vital Signs (last 24 hours): Temp Pulse Resp BP Pulse Ox 98 F 67 18 143/76 98 07/17/18 08:15 07/17/18 08:15 07/17/18 08:15 07/17/18 09:39 07/17/18 08:15 Intake and Output: 07/17/18 07/17/18 06:59 18:59 Intake Total 1920 Balance 1920 - Medications Medications: Current Medications Amitriptyline HCl (Elavil) 10 mg PO HS [facility] Last Admin: 07/16/18 21:49 Dose: 10 mg Amlodipine Besylate (Norvasc) 10 mg PO DAILY [facility] Last Admin: 07/17/18 09:39 Dose: 10 mg Aspirin (Ecotrin) 81 mg PO DAILY [facility] Last Admin: 07/17/18 09:39 Dose: 81 mg Atorvastatin Calcium (Lipitor) 40 mg PO DIN [facility] Last Admin: 07/16/18 17:34 Dose: 40 mg Calcitriol (Rocaltrol) 0.25 mcg PO MON [facility] Chlorthalidone (Hygroton) 25 mg PO QOTHERDAY [facility] Last Admin: 07/16/18 09:04 Dose: 25 mg Clopidogrel Bisulfate (Plavix) 75 mg PO DAILY [facility] Last Admin: 07/14/18 10:16 Dose: 75 mg Donepezil HCl (Aricept) 10 mg PO HS [facility] Last Admin: 07/16/18 21:47 Dose: 10 mg Ezetimibe (Zetia) 10 mg PO DAILY [facility] Last Admin: 07/17/18 09:39 Dose: 10 mg Ferrous Sulfate (Feosol) 324 mg PO BID [facility] Last Admin: 07/17/18 09:39 Dose: 324 mg Gabapentin (Neurontin) 300 mg PO HS [facility]; Protocol Last Admin: 07/16/18 21:47 Dose: 300 mg Sodium Chloride (Sodium Chloride 0.9%) 1,000 mls @ 50 mls/hr IV .Q20H [facility] Stop: 07/20/18 23:59 Insulin Human Regular (Humulin R Low) 0 units SC [facility]; Protocol Last Admin: 07/17/18 12:32 Dose: Not Given Memantine (Namenda) 10 mg PO DAILY [facility] Last Admin: 07/17/18 09:39 Dose: 10 mg Non-Formulary Medication (Nebivolol [Bystolic]) 5 mg PO DAILY [facility] Last Admin: 07/17/18 09:37 Dose: Not Given Pantoprazole Sodium (Protonix Ec Tab) 40 mg PO 0600 [facility] Last Admin: 07/17/18 06:05 Dose: 40 mg Ropinirole HCl (Requip) 0.25 mg PO DAILY [facility] Last Admin: 07/17/18 09:39 Dose: 0.25 mg Sodium Bicarbonate (Sodium Bicarbonate Tab) 650 mg PO BID [facility] Last Admin: 07/17/18 09:39 Dose: 650 mg Tamsulosin HCl (Flomax) 0.4 mg PO BID [facility] Last Admin: 07/17/18 09:39 Dose: 0.4 mg Tramadol HCl (Ultram) 50 mg PO TID PRN PRN Reason: Pain, severe (8-10) Last Admin: 07/17/18 09:46 Dose: 50 mg - Labs Labs: 07/15/18 06:10 07/17/18 06:00 PT 11.5 SECONDS (9.4-12.5) 07/12/18 13:10 INR 1.04 07/12/18 13:10 APTT 36.1 Seconds (26.9-38.3) 07/12/18 13:10 Attending/Attestation - Attestation I have personally seen and examined this patient.: Yes I have fully participated in the care of the patient.: Yes I have reviewed all pertinent clinical information, including history, physical exam and plan: Yes Notes (Text): This patient was seen and evaluated here earlier. This is an addendum to the GI progress note dictated by the GI fellow. Patient comfortable. Patient is now off the Plavix. History of anemia. History of gastroparesis colon polyp. Admitted with epigastric discomfort. History of coronary artery disease status post multiple stents placed. Diabetes mellitus. Chronic kidney disease. Patient will be scheduled for EGD and a colonoscopy off Plavix at least for 5 days Discussed with the magnetic observer and also with the Dr. Hoffman before 07/17/18 16:01
--- NOTE | 2018-07-17 13:00 | PN ---
DATE: 07/17/2018 PULMONARY PROGRESS NOTE REFERRING PHYSICIAN: Dr. Gill Hoffman. SUBJECTIVE: The patient is seen lying in bed. No acute distress. No overnight events reported. No headache, rhinitis, cough, shortness of breath, chest pain, abdominal pain, nausea, vomiting, diarrhea, leg pain, or leg swelling reported. OBJECTIVE: GENERAL: No acute distress. VITAL SIGNS: Blood pressure 143/76, pulse 67, temperature 98, and oxygen saturation 98% on room air. HEENT: Moist mucous membranes. NECK: Supple. No JVD. LUNGS: Fair airflow bilaterally. CARDIOVASCULAR: S1 and S2. ABDOMEN: Soft and nontender. No distention. No organomegaly. EXTREMITIES: No bilateral lower extremity edema. NEUROLOGIC: Awake, alert, and verbal and following commands. MEDICATIONS: Reviewed. Elavil 10 mg at bedtime, Norvasc 10 mg daily, aspirin 81 mg daily, Lipitor 40 mg at dinner, calcitriol 0.25 mcg on , chlorthalidone 25 mg every other day, Plavix 75 mg daily, Aricept 10 mg at bedtime, Zetia 10 mg daily, ferrous sulfate 324 mg twice a day, Neurontin 300 mg at bedtime, Humulin R sliding scale a.c. and at bedtime, Namenda 10 mg daily, Bystolic 5 mg daily, Protonix 40 mg daily, Requip 0.25 mg daily, sodium bicarbonate 650 mg twice a day, Flomax 0.4 mg twice a day, and Ultram 50 mg three times a day p.r.n. LABORATORY DATA: Reviewed. Sodium 138, potassium 4.3, chloride 103, carbon dioxide 26, anion gap 14, BUN 42, creatinine 4.2, GFR 14, random glucose 194 and calcium 8.7. Stool culture final; no Salmonella, Shigella or Campylobacter isolated. IMPRESSION AND PLAN: Chronic cough probably secondary to gastroparesis; diabetes mellitus; extensive coronary artery disease; hypertension; hyperlipidemia; renal insufficiency; suspected sleep apnea syndrome; coronary artery disease status post multiple stents status post myocardial infarction; history of chronic renal insufficiency; neuropathy; nephropathy; anemia and history of pancreatitis. The patient is for potential esophagogastroduodenoscopy colonoscopy with biopsy this week. Continue Cardiology followup and Gastroenterology followup. Pulmonary point of view, continue inhaled bronchodilators, gastric prophylaxis, deep venous thrombosis prophylaxis, and head of bed elevated at 45 degrees. Recommend close cardiopulmonary monitoring while sedated. We will start the patient on incentive spirometer. We will recommend the patient have sleep study and full pulmonary function test as outpatient. This patient was seen and examined with Dr. Borja. Discussed assessment and plan as described above. This patient was seen and examined with Fortino Guzman, nurse practitioner. Discussed assessment and plan as described above. Thank you for this consult. We will follow with you. Fortino Guzman APN Anyi Borja MD
[2018-07-17] MEDS: Sodium Chloride 0.9% 1,000 ML IV SCH (16:30)
--- NOTE | 2018-07-18 00:14 | PN ---
DATE: 07/17/2018 SUBJECTIVE: The patient is a 63-year-old male. The patient was seen and examined at the bedside on 07/17/2018, looking comfortable. He is complaining about body aches, coughing. No nausea, vomiting, or diarrhea. No hematuria or hematochezia. No headache, no dizziness. No chest pain. No palpitation. PHYSICAL EXAMINATION: VITAL SIGNS: Blood pressure 140/70, pulse 67, temperature 98, oxygen saturation 98%. HEENT: Head: Normocephalic and atraumatic. Eyes: PERRLA. Extraocular muscles intact. Conjunctivae clear. Nose patent. NECK: Supple. No carotid bruits. No JVD or thyromegaly. CHEST: Bilaterally symmetrical. HEART: S1 and S2 positive. LUNGS: Clear to auscultation. ABDOMEN: Soft. Bowel sounds present. No organomegaly. EXTREMITIES: No edema, no cyanosis. NEUROLOGIC: The patient is awake and alert. Moving all four extremities. No focal deficits. MEDICATIONS: Elavil, aspirin, Lipitor, calcitriol, Plavix, Neurontin, insulin, Namenda, Protonix, Requip, Flomax. LABORATORY DATA: Sodium 138, potassium 4.3, BUN 42, creatinine 4.2, glucose 194. Stool culture final, no Salmonella, no Shigella, no Campylobacter isolated. ASSESSMENT: Mr. Anyi Herrera is a 63-year-old male with multiple medical problems, insulin-dependent diabetes mellitus, renal insufficiency, chronic obstructive pulmonary disease, gastroparesis, extensive coronary artery disease, hypertension, hypercholesterolemia, sleep apnea syndrome, coronary artery disease, status post multiple stents, myocardial infarction, neuropathy, gastroparesis. He is getting physical therapy. Gastrointestinal and Nephrology on the case. Seen by Dr. Bloom, Dr. Borja, Dr. Jacobo, and Dr. Pastrana. Tolerating diet. PLAN: EGD, colonoscopy on Wednesday, holding Plavix. Continue PPI. Consider MiraLax for constipation. Repeat labs. We will follow up. Gill Hoffman MD
[2018-07-18] MEDS: Pantoprazole 40 mg EC Tab PO SCH (06:00)
[2018-07-18 07:37] LABS: HEMOGLOBIN 10.8 g/dL (14.0-18.0); MEAN CELL VOLUME 91.2 fl (80.0-105.0); MEAN CORPUSCULAR HEMOGLOBIN 29.8 pg (25.0-35.0); MEAN CORPUSCULAR HGB CONC 32.6 g/dl (31.0-37.0); MEAN PLATELET VOLUME 10.2 fl (7.0-11.0); RBC 3.63 10^6/uL (3.5-6.1); RED CELL DISTRIBUTION WIDTH 14.6 % (11.5-14.5); WHITE BLOOD COUNT 7.6 10^3/uL (4.5-11.0)
[2018-07-18 08:02] LABS: CALCIUM 8.4 mg/dL (8.4-10.5)
[2018-07-18] MEDS: Insulin Reg-LOW-Coverage SC SCH ×4 (08:25→22:00)
--- NOTE | 2018-07-18 09:35 | PN ---
DATE: 07/16/2018 SUBJECTIVE: The patient is a 63-year-old male. The patient is seen and examined at the bedside on 07/16/2018. Looking comfortable. No fever. No chills. No hematochezia. No nausea, vomiting, or diarrhea. The patient has no headache or dizziness. PHYSICAL EXAMINATION: VITAL SIGNS: Blood pressure 140/80, pulse 78, temperature 98.8, and oxygen saturation 97% on room air. HEENT: Head: Normocephalic and atraumatic. Eyes: PERRLA. Extraocular muscles intact. Conjunctivae clear. Nose patent. Mucous membranes moist. NECK: Supple. No carotid bruits. No JVD or thyromegaly. CHEST: Bilaterally symmetrical. HEART: S1 and S2 positive. LUNGS: Clear to auscultation. ABDOMEN: Soft. Bowel sounds present. No organomegaly. EXTREMITIES: No edema. No cyanosis. NEUROLOGIC: The patient is awake and alert. Follows simple commands. MEDICATIONS: Elavil, Norvasc, aspirin, Lipitor, calcitriol, Plavix, Aricept at bedtime, Namenda, Requip, and Flomax. LABORATORY DATA: Glucose 138. We do not have recent labs today, but I reviewed old labs. ASSESSMENT AND PLAN: The patient is a 63-year-old male with multiple medical problems, insulin-dependent diabetes mellitus, gastroparesis, chronic obstructive pulmonary disease, rule out aspiration, intensive coronary artery disease, hypertension, hypercholesterolemia, renal insufficiency, sleep apnea syndrome, coronary artery disease, status post multiple stents in the past, myocardial infarction,diabetic neuropathy, diabetic nephropathy, and diabetic retinopathy. The patient is bilaterally blind. History of pancreatitis. Gastrointestinal and deep venous thrombosis prophylaxis. Gastroenterology is on the case. The patient is getting physical therapy. We will follow up. Gill Hoffman MD
--- NOTE | 2018-07-18 10:05 | PN ---
DATE: 07/15/2018 Case was discussed with Dr. Hoffman and she agrees with the treatment plan. This progress note is for Dr. Anyi Herrera. SUBJECTIVE: This is a 63-year-old male, came in with fatigue, abdominal pain, chest pain, generalized weakness, shortness of breath. Has a past medical history of diabetes mellitus type II, hyperlipidemia, CAD with stenting, BPH, hypertension. Saw the patient today in room. She was alert and oriented. Denies acute distress. Denies sinus problems, facial pains, chest pain, palpitations, shortness of breath, cough, hemoptysis, abdominal pain or dysuria. The patient stated that he felt a little better. He was concerned about the endoscopy procedure that he is going to have today. He was assured of the procedure. PHYSICAL EXAMINATION: VITAL SIGNS: Temperature 98.2, pulse rate 74, blood pressure 129/81, respiratory rate 18 and O2 saturation 100 on room air. MEDICATIONS: Elavil 10 mg p.o. at bedtime, amlodipine 10 mg daily, Lipitor 40 mg p.o. daily, aspirin 81 mg, Calcitrol 0.25 mcg every Wednesday, Hygroton 25 mg p.o. every other day, Plavix 75 mg p.o. daily, donepezil 10 mg p.o. daily, Zetia 10 mg p.o. daily, ferrous sulfate 324 daily and gabapentin 300 p.o. daily. The patient is getting Accu-Chek a.c. and at bedtime for insulin coverage, Humulin R, Namenda 10 mg p.o. daily, Bystolic 5 mg daily, Protonix 40 mg daily, ReQuip 0.25 daily, LABORATORY DATA: White blood cell 9.1, hemoglobin 11.7, hematocrit 36 and platelet count NOTED . Sodium 141, potassium 4, BUN 37, creatinine 2.4 and glucose 174. ASSESSMENT AND PLAN: The patient came in with renal insufficiency, renal failure, hypertension, hyperlipidemia, diabetes mellitus, gastroesophageal reflux disease and shortness of breath. I spoke with the patient today, he is interested in going for endoscopy while in the hospital, our goal is to don as an outpatient. Gastrointestinal agrees, he is being followed by Gastrointestinal, Cardio and Pulmonology. The patient will be going to upper endoscopy and colonoscopy today. He is also followed by Nephrology. The patient is on Norvasc, Lipitor, Calcitrol, Plavix, Zetia, insulin checks with, insulin coverage, Protonix, ReQuip and tamsulosin. We will followup with gastrointestinal with regards to endo and colonoscopy results and followup with cardiac nurse practitioner, the patient's blood pressure, Accu-Chek and labs. We will followup. ALL ABOVE NOTED , AGREED ALL ABOVE , EDUCATION DONE , WILL F/U Jan Vicente APN Gill Hoffman MD [id number]
[2018-07-18] MEDS: Sodium Chloride 0.9% 1,000 ML IV SCH (10:25)
[2018-07-18] MEDS: Non Formulary Medication (Nebivolol [Bystolic] 5 MG) PO SCH (10:26)
--- NOTE | 2018-07-18 16:27 | PN ---
DATE: 07/18/2018 REASON FOR CONSULTATION: Followup cardiac evaluation and history of coronary artery disease, diabetes, hypertension, hyperlipidemia, admitted with abdominal pain, gastroparesis, generalized weakness, renal insufficiency, status post left arm fistula, scheduled for endoscopy and colonoscopy on Wednesday. SUBJECTIVE: The patient denies any chest pain, shortness of breath, any palpitations. Feels pain all over the body and generalized weakness. OBJECTIVE: GENERAL: Not in apparent distress. VITAL SIGNS: Temperature afebrile, heart rate 77, blood pressure 136/73. HEENT: PERRLA. Extraocular muscles intact. NECK: Supple. No carotid bruits. No thyromegaly. CHEST: Clear to auscultation. HEART: S1 and S2, regular. ABDOMEN: Soft. EXTREMITIES: Clubbing, cyanosis negative. LABORATORY DATA: Blood workup: WBC 7.2, hemoglobin 10.2, hematocrit 33.1, platelet count 192. Chemistries show sodium 130, potassium 3.9, chloride 104, carbon dioxide 27, anion gap of 11, BUN 42, creatinine 3.6. IMPRESSION: A 63-year-old male with past medical history significant for coronary artery disease status post acute myocardial infarction in 2011, seven years ago, was on aspirin and Plavix, history of colonic polyp and plans to remove the polyp, admitted with epigastric pain, gastroparesis, generalized body ache and pain. Last echo on 05/19/2018 showed ejection fraction of 40% to 45%, trace to mild tricuspid regurgitation. So far, no evidence of ischemia in the floor. The patient is scheduled for endoscopy as well as a colonoscopy and polypectomy; off Plavix for more than five days. The patient is scheduled for Wednesday for endoscopy, colonoscopy, and polypectomy. The patient was getting intravenous fluid yesterday. Intravenous fluid was stopped and creatinine jumped to 4.2, restarted again and the creatinine is 3.6. We will hold hydrochlorothiazide, chlorthalidone for now because of worsening renal insufficiency. Continue gentle hydration. Followup laboratories in the morning and schedule for endoscopy. The patient was taking at home Glucerna, I advised him to take Nepro product because that is good for patients who have renal insufficiency. Further recommendation and hospital course, we will follow with you. Will repeat SMA-7 in the morning. On IV fluid and chlorthalidone will be discontinued because of worsening renal insufficiency. Repeat labs in the morning. Thank you Dr. Hoffman for providing us the opportunity in taking care of the patient and we will follow with you. Anyi Jacobo MD
--- NOTE | 2018-07-18 16:31 | PN ---
DATE: 07/18/2018 PULMONARY PROGRESS NOTE REFERRING PHYSICIAN: Gill Hoffman MD SUBJECTIVE: The patient is seen sitting at bedside, no acute distress, and no overnight events reported. No headache, rhinitis, cough, shortness of breath, chest pain, abdominal pain, nausea, vomiting, diarrhea, leg pain, or leg swelling reported. OBJECTIVE: GENERAL: No acute distress. VITAL SIGNS: Blood pressure 136/73, pulse 77, temperature 98.7, and oxygen saturation 97% on room air. HEENT: Moist mucous membranes. NECK: Supple. No JVD. LUNGS: Fair airflow bilaterally. CARDIOVASCULAR: S1 and S2. ABDOMEN: Soft and nontender. No distention. No organomegaly. EXTREMITIES: No bilateral lower extremity edema. NEUROLOGIC: Awake, alert, and verbal; following commands. MEDICATIONS: Reviewed. Elavil 10 mg at bedtime, Norvasc 10 mg daily, aspirin 81 mg daily, Lipitor 40 mg at dinner, calcitriol 0.25 mcg on Mondays, Theozine 25 mg three times a p.r.n.,chlorthalidone 25 mg every other day, Plavix 75 mg daily on , Aricept 10 mg at bedtime, Zetia 10 mg daily, ferrous sulfate 324 mg twice a day, Neurontin 300 mg at bedtime, Humulin R sliding scale a.c. and at bedtime, Namenda 10 mg daily, Bystolic 5 mg daily, Protonix 40 mg daily, Requip 0.25 mg daily, sodium bicarbonate 650 mg twice a day, sodium chloride 1000 mL at 50 mL per hour, Flomax 0.4 mg twice a day, and tramadol 50 mg three times a day p.r.n. LABORATORY DATA: Reviewed. WBC 7.6, RBC 3.63, hemoglobin 10.8, hematocrit 33.1 and platelets 192. Sodium 138, potassium 3.9, chloride 104, carbon dioxide 27, anion gap 11, BUN 42, creatinine 3.6, GFR is 17, POC glucose 117, random glucose 126 and calcium 8.4. IMPRESSION AND PLAN: Chronic cough possibly secondary to gastroparesis; diabetes mellitus; extensive coronary artery disease; hypertension; renal insufficiency; hyperlipidemia; coronary artery disease status post multiple stents, status post myocardial infarction; history of chronic renal insufficiency; suspected sleep apnea syndrome; neuropathy; nephropathy; anemia and history of pancreatitis. For potential esophagogastroduodenoscopy and colonoscopy with biopsy this week. Continue Gastroenterology followup and Cardiology followup. Pulmonary point of view, continue inhaled bronchodilators, gastric prophylaxis, deep venous thrombosis prophylaxis, and head of bed elevated at 45 degrees. We will start the patient on heparin 5000 units every 12 hours for deep venous thrombosis prophylaxis. We will under dose the patient due to renal insufficiency. Labs in the morning. Recommend close cardiopulmonary monitoring while sedated. Continue incentive spirometry. Recommend the patient have sleep study and full pulmonary function test as outpatient. This patient was seen and examined with Dr. Borja. Discussed assessment and plan as described above. This patient was seen and examined with Fortino Guzman, nurse practitioner. Discussed assessment and plan as described above. Thank you for this consult. We will follow with you. Fortino Guzman APN Anyi Borja MD
--- NOTE | 2018-07-18 20:02 | PN ---
DATE: 07/18/2018 SUBJECTIVE: The patient was seen and examined. The patient has no complaints of any chest pain. No shortness of breath. No headache. PHYSICAL EXAMINATION: VITAL SIGNS: Temperature is 98.7, pulse is 77, blood pressure is 136/73, and respiration is 20. GENERAL: The patient is lying in bed, flat, comfortable. HEENT: No oral lesion. Anicteric sclerae. Moist mucosa. NECK: No JVD, adenopathy, or thyromegaly. CARDIOVASCULAR: S1 and S2, regular. No murmurs, rubs, or gallops. LUNGS: Clear to auscultation bilaterally. No wheeze, rales, or rhonchi. ABDOMEN: Bowel sounds are positive, soft, nontender and nondistended. EXTREMITIES: No cyanosis, clubbing, or edema. LABORATORY DATA: Hemoglobin is 10.8, and creatinine is 3.6. ASSESSMENT: 1. Acute kidney injury with chronic kidney disease, stage IV. 2. Secondary hyperparathyroidism. 3. Left arteriovenous fistula. 4. Dyslipidemia. 5. Hypertension. 6. Diabetes type 2. 7. Diabetic nephropathy. 8. Proteinuria of 1.6 g per 24 hours. PLAN: The patient's creatinine is stable. He is waiting for endoscopy to be done. He is currently on iron replacement orally. He is on Lipitor for dyslipidemia. The patient is on Norvasc for his hypertension. He is on sodium bicarbonate. He is to continue with IV fluids. Jose Pastrana MD
--- NOTE | 2018-07-19 01:02 | PN ---
DATE: 07/18/2018 SUBJECTIVE: The patient was seen and examined at the bedside on 07/18/2018. No fever. No chills. No hematuria. No hematochezia. No headache. No dizziness. No chest pain. No palpitations. PHYSICAL EXAMINATION VITAL SIGNS: Blood pressure 132/73, pulse 77, temperature 98.7, oxygen saturation 91% room air. HEENT: Head; normocephalic, atraumatic. Eyes; PERRLA. Extraocular muscles intact. Conjunctivae clear. Nose patent. Mucous membranes moist. NECK: Supple. No carotid bruits. No JVD. No thyromegaly. CHEST: Bilaterally symmetrical. HEART: S1, S1 positive. LUNGS: Positive airflow bilaterally. ABDOMEN: Soft and nontender. No organomegaly. EXTREMITIES: No edema. No cyanosis. NEUROLOGIC: The patient awake and alert. Follows simple commands. MEDICATIONS: Elavil, Norvasc, aspirin, Lipitor, calcitriol, Chlorthalidone, Plavix, Aricept, Zetia, ferrous sulfate, Neurontin, insulin, Namenda, Protonix, Rocephin, sodium bicarbonate, Flomax, Tramadol. LABORATORY DATA: White blood cells 7.6, hemoglobin 10.8, hematocrit 33.1, platelets 192. Sodium 138, potassium 3.9, BUN 42, creatinine 3.6. ASSESSMENT AND PLAN: Mr. Anyi Herrera is a 63-year-old male with anemia of chronic disease, renal insufficiency, getting ready for dialysis. Actually arteriovenous fistula is made but now they have to redo that. Chronic obstructive pulmonary disease, gastroparesis, hypertension, hypercholesterolemia, extensive coronary artery disease, multiple stents status post myocardial infarction, history of suspected obstructive sleep apnea, diabetic nephropathy, diabetic neuropathy, diabetic retinopathy. Discussion done with the patient and the patient's nursing staff. Repeat labs. Maybe colonoscopy tomorrow. Maybe gastroscopy also to rule out gastroparesis because of constant nauseousness. We will follow. Gill Hoffman MD [facility]
[2018-07-19] MEDS: Pantoprazole 40 mg EC Tab PO SCH (06:05)
[2018-07-19 06:41] LABS: BASO # 0.01 K/mm3 (0.0-2.0); BASO % 0.1 % (0.0-3.0); EOS # 0.3 (0.0-0.7); EOS % 3.6 % (1.5-5.0); HEMOGLOBIN 10.6 g/dL (14.0-18.0); LYMPH % 26.4 % (22.0-35.0); MEAN CORPUSCULAR HEMOGLOBIN 29.9 pg (25.0-35.0); MEAN CORPUSCULAR HGB CONC 32.8 g/dl (31.0-37.0); MEAN PLATELET VOLUME 9.9 fl (7.0-11.0); MONO # 0.5 (0.1-0.6); MONO % 6.7 % (1.0-6.0); RBC 3.55 10^6/uL (3.5-6.1); RED CELL DISTRIBUTION WIDTH 14.5 % (11.5-14.5); WHITE BLOOD COUNT 7.6 10^3/uL (4.5-11.0)
[2018-07-19 07:15] LABS: CALCIUM 8.5 mg/dL (8.4-10.5)
[2018-07-19] MEDS: Sodium Chloride 0.9% 1,000 ML IV SCH (07:45)
[2018-07-19] MEDS: Insulin Reg-LOW-Coverage SC SCH ×3 (08:06→16:25)
[2018-07-19] MEDS: Non Formulary Medication (Nebivolol [Bystolic] 5 MG) PO SCH (09:33)
--- NOTE | 2018-07-19 12:24 | PN ---
DATE: 07/19/2018 REFERRING PHYSICIAN: Gill Hoffman MD SUBJECTIVE: The patient is seen sitting at bedside, no acute distress, no overnight events reported. No headache, rhinitis, cough, shortness of breath, chest pain, nausea, vomiting, diarrhea, leg pain, or leg swelling reported. The patient does report having some mild epigastric discomfort. OBJECTIVE: GENERAL: No acute distress. VITAL SIGNS: Blood pressure 160/78, pulse 76, temperature 97.8, and oxygen saturation 95% on room air. HEENT: Moist mucous membranes. NECK: Supple. No JVD. LUNGS: Fair airflow bilaterally. CARDIOVASCULAR: S1 and S2. ABDOMEN: Soft and nontender. No distention. No organomegaly. EXTREMITIES: No bilateral lower extremity edema. NEUROLOGIC: Awake, alert, verbal, following commands. MEDICATIONS: Reviewed. Elavil 10 mg at bedtime, Norvasc 10 mg daily, aspirin 81 mg daily, Lipitor 40 mg at dinner, calcitriol 0.25 mcg on Mondays, Thorazine 25 mg three times a day p.r.n., chlorthalidone 25 mg every other day on hold, Plavix on hold, Aricept 10 mg at bedtime, Zetia 10 mg daily, ferrous sulfate 324 mg twice a day, gabapentin 300 mg at bedtime, heparin 5000 units subcutaneous every 12 hours on hold, hydralazine 10 mg four times a day p.r.n., Humulin R sliding scale before meals and at bedtime, Namenda 10 mg daily, Bystolic 5 mg daily, Protonix 40 mg daily, ReQuip 0.25 mg daily, sodium bicarbonate 650 mg twice a day, sodium chloride 0.9% in 1000 mL at 50 mL per hour, Flomax 0.4 mg twice a day, tramadol 50 mg three times a day p.r.n. LABORATORY DATA: Reviewed. WBC 7.6, RBC 3.5, hemoglobin 10.6, hematocrit 32.3 and platelets 179. Sodium 138, potassium 4.1, chloride 104, carbon dioxide 27, anion gap 11, BUN 44, creatinine 3.5, GFR 18, POC glucose 141, random glucose 139, and calcium 8.5. IMPRESSION AND PLAN: Chronic cough possibly secondary to gastroparesis, diabetes mellitus, extensive coronary artery disease, hypertension, renal insufficiency, hyperlipidemia, coronary artery disease, status post multiple stents, status post myocardial infarction, history of chronic renal insufficiency, neuropathy, nephropathy, anemia, history of pancreatitis, suspected sleep apnea syndrome. The patient is scheduled for a potential esophagogastroduodenoscopy and colonoscopy with biopsy tomorrow. Continue Gastroenterology followup and Cardiology followup. Pulmonary point of view, continue inhaled bronchodilators, gastric prophylaxis, deep venous thrombosis prophylaxis, and head of bed elevated at 45 degrees. Heparin on hold for the patient's procedure tomorrow. Recommend close cardiopulmonary monitoring while sedated. Continue incentive spirometry. Recommend full pulmonary function test and sleep study as outpatient. This patient was seen and examined with Dr. Borja. Discussed assessment and plan as described above. This patient was seen and examined with Fortino Guzman, nurse practitioner. Discussed assessment and plan as described above. Thank you for this consult. We will follow with you. Fortino Guzman APN Anyi Borja MD
[2018-07-19] MEDS ORDERED: NuLYTELY (NACL/NAHCO3/KCL/PEG) 4L PO ONE (15:00)
--- NOTE | 2018-07-19 15:02 | PN ---
DATE: 07/19/2018 REASON FOR CONSULTATION AND FOLLOWUP: Cardiac evaluation, history of coronary artery disease, hypertension, hyperlipidemia, admitted with abdominal pain, gastroparesis, generalized weakness, renal insufficiency, status post left arm fistula, scheduled for endoscopy and colonoscopy tomorrow. Off Plavix more than 5 days. PHYSICAL EXAMINATION: As follows: VITAL SIGNS: Temperature afebrile, heart rate 73, blood pressure 160/78. HEENT: PERRLA. Extraocular muscles are intact. NECK: Supple. No carotid bruits. No thyromegaly. CHEST: Clear to auscultation. HEART: S1 and S2, regular. ABDOMEN: Soft. EXTREMITIES: Clubbing and cyanosis negative. LABORATORY DATA: WBC 7.6, hemoglobin 10.3, hematocrit 32.3, platelet count 173. Chemistry shows sodium 130, potassium 4.1, chloride 104, carbon dioxide 27, anion gap of 11, BUN 44, and creatinine 3.5. IMPRESSION: A 63-year-old male with past medical history significant for coronary artery disease, status post acute massive anterior wall myocardial infarction in 2011, was on aspirin and Plavix, off aspirin and Plavix, last dose of the Plavix was . History of colonic polyp, requiring polypectomy. History of gastroparesis. Admitted with abdominal pain and generalized weakness. Last echo on 05/19/2018 showed ejection fraction of 40% to 45%, mild tricuspid regurgitation. So far, no evidence of acute ischemia. The patient is scheduled for endoscopy and colonoscopy as well as polypectomy, off Plavix more than five days. The patient cleared to go for the procedure. No evidence of acute ischemia, no evidence of arrhythmia, no evidence of congestive heart failure. Though the patient has baseline renal insufficiency, on currently IV fluid and off diuretics. Creatinine came back to 3.5, stage 4 chronic kidney disease. The patient has arteriovenous fistula, left arm, for possible dialysis getting soon. RECOMMENDATION: Continue to hold aspirin and Plavix for possible endoscopy tomorrow with polypectomy. Also, we will hold heparin to prevent bleeding during the polypectomy. The patient's DVT prophylaxis, we will hold it. Hygroton that is chlorthalidone also held because of the renal insufficiency, continue atorvastatin, continue Bystolic, continue amlodipine. We will start 10 mg of hydralazine p.r.n. for systolic more than 160 because the patient getting IV fluid and normal saline, possibly blood pressure is creeping up. We will follow with you. The patient cleared as mentioned for EGD and colonoscopy. As mentioned again, aspirin, Plavix and subcu heparin is on hold as well as Hygroton that is chlorthalidone is on hold. We will put in physician communication undergo endoscopy and colonoscopy. As mentioned, the patient is cleared to undergo colonoscopy and polypectomy with moderate factor but no absolute contraindication. No evidence of acute ischemia, no evidence of arrhythmia, no evidence of CHF. Thank you Dr. Hoffman for providing us the opportunity in taking care of the patient, Anyi Herrera. Anyi Jacobo MD
--- NOTE | 2018-07-19 15:25 | CP.PCM.PN ---
Subjective - Date & Time of Evaluation Date of Evaluation: 07/19/18 Time of Evaluation: 11:30 - Subjective Subjective: Seen and examined at bedside, chart reviewed, no acute overnights. No c/o N/V or abdominal pain, no overt GI bleeding. Denies SOB or chest pain. Resting in bed. Objective - Vital Signs/Intake and Output Vital Signs (last 24 hours): Temp Pulse Resp BP Pulse Ox 97.8 F 76 20 160/78 H 95 07/19/18 08:01 07/19/18 08:01 07/19/18 08:01 07/19/18 09:32 07/19/18 08:01 Intake and Output: 07/19/18 07/19/18 06:59 18:59 Intake Total 1800 Balance 1800 - Medications Medications: Current Medications Amitriptyline HCl (Elavil) 10 mg PO HS [facility] Last Admin: 07/18/18 22:00 Dose: 10 mg Amlodipine Besylate (Norvasc) 10 mg PO DAILY [facility] Last Admin: 07/19/18 09:32 Dose: 10 mg Aspirin (Ecotrin) 81 mg PO DAILY [facility] Last Admin: 07/19/18 09:32 Dose: 81 mg Atorvastatin Calcium (Lipitor) 40 mg PO DIN [facility] Last Admin: 07/18/18 17:41 Dose: 40 mg Calcitriol (Rocaltrol) 0.25 mcg PO MON [facility] Last Admin: 07/18/18 10:24 Dose: 0.25 mcg Chlorpromazine (Thorazine) 25 mg PO TID PRN; Protocol PRN Reason: Hiccups Last Admin: 07/17/18 18:54 Dose: 25 mg Chlorthalidone (Hygroton) 25 mg PO QOTHERDAY [facility] Last Admin: 07/18/18 10:24 Dose: 25 mg Clopidogrel Bisulfate (Plavix) 75 mg PO DAILY [facility] Last Admin: 07/14/18 10:16 Dose: 75 mg Donepezil HCl (Aricept) 10 mg PO HS [facility] Last Admin: 07/18/18 22:00 Dose: 10 mg Ezetimibe (Zetia) 10 mg PO DAILY [facility] Last Admin: 07/19/18 09:32 Dose: 10 mg Ferrous Sulfate (Feosol) 324 mg PO BID [facility] Last Admin: 07/19/18 09:32 Dose: 324 mg Gabapentin (Neurontin) 300 mg PO HS [facility]; Protocol Last Admin: 07/18/18 21:59 Dose: 300 mg Heparin Sodium (Porcine) (Heparin) 5,000 units SC Q12 [facility]; Protocol Last Admin: 07/19/18 09:31 Dose: 5,000 units Hydralazine HCl (Apresoline) 10 mg PO QID PRN PRN Reason: For SBP>160 Sodium Chloride (Sodium Chloride 0.9%) 1,000 mls @ 50 mls/hr IV .Q20H [facility] Stop: 07/20/18 23:59 Last Admin: 07/19/18 07:45 Dose: 50 mls/hr Insulin Human Regular (Humulin R Low) 0 units SC ACHS [facility]; Protocol Last Admin: 07/19/18 11:40 Dose: 3 unit Memantine (Namenda) 10 mg PO DAILY [facility] Last Admin: 07/19/18 09:31 Dose: 10 mg Non-Formulary Medication (Nebivolol [Bystolic]) 5 mg PO DAILY [facility] Last Admin: 07/19/18 09:33 Dose: Not Given Pantoprazole Sodium (Protonix Ec Tab) 40 mg PO 0600 [facility] Last Admin: 07/19/18 06:05 Dose: 40 mg Ropinirole HCl (Requip) 0.25 mg PO DAILY [facility] Last Admin: 07/19/18 09:31 Dose: 0.25 mg Sodium Bicarbonate (Sodium Bicarbonate Tab) 650 mg PO BID [facility] Last Admin: 07/19/18 09:32 Dose: 650 mg Tamsulosin HCl (Flomax) 0.4 mg PO BID [facility] Last Admin: 07/19/18 09:32 Dose: 0.4 mg Tramadol HCl (Ultram) 50 mg PO TID PRN PRN Reason: Pain, severe (8-10) Last Admin: 07/18/18 22:06 Dose: 50 mg - Labs Labs: 07/19/18 06:20 07/19/18 06:20 PT 11.5 SECONDS (9.4-12.5) 07/12/18 13:10 INR 1.04 07/12/18 13:10 APTT 36.1 Seconds (26.9-38.3) 07/12/18 13:10 - Constitutional Appears: No Acute Distress - Head Exam Head Exam: NORMOCEPHALIC - Eye Exam Eye Exam: Normal appearance. absent: Scleral icterus - ENT Exam ENT Exam: Mucous Membranes Moist - Neck Exam Neck Exam: Normal Inspection - Respiratory Exam Respiratory Exam: Clear to Ausculation Bilateral, NORMAL BREATHING PATTERN. absent: Respiratory Distress - Cardiovascular Exam Cardiovascular Exam: +S1, +S2 - GI/Abdominal Exam GI & Abdominal Exam: Soft, Normal Bowel Sounds. absent: Guarding, Tenderness, Rebound - Extremities Exam Extremities Exam: Normal Inspection. absent: Calf Tenderness, Pedal Edema - Neurological Exam Neurological Exam: Alert, Awake, Oriented x3 - Skin Skin Exam: Dry, Warm Assessment and Plan - Assessment and Plan (Free Text) Assessment: Assessment: Abdominal pain, ct scan and abdominal US, negative, consider gastroparesis H/o h. Pylori gastritis Colon polyps CAD/ OK w/ stents, on Plavix, Aspirin, currently on hold Colon polyps, last colon 04/2016, recent colon 07/2017, 5 sub cm polyps w/ no bx on anticoagulant Diverticulosis HTN Plan: diet changed to clear liquid diet plan for EGD and colonoscopy on Wednesday, pt agree for procedure last dose Plavix 07/13/18, start Golytle prep at 3pm and give a dose of Reglan 30 minutes before start of colon prep, see order in [facility] continue PPI ACB discuss with nursing staff. Seen and discussed w/ Dr. Bloom.
--- NOTE | 2018-07-19 19:14 | PN ---
DATE: 07/19/2018 SUBJECTIVE: This is a 63-year-old male. The patient was seen at the bedside today. He was alert and oriented. He denies chest pain, shortness of breath, hematuria, hematochezia, dysuria. Reports dull epigastric pain without radiation. He has past medical history of chronic renal failure, diabetes mellitus type 2, hyperlipidemia, coronary artery disease with stenting, prostate disorder, GERD, and hypertension. PHYSICAL EXAMINATION: VITAL SIGNS: Temperature 97.8, pulse 87, blood pressure 160/78, respiratory rate 20, O2 saturation was 95% on room air. HEENT: Normocephalic. PERRLA. Mucous membranes moist. MEDICATIONS: The patient remains on Elavil 10 mg at bedtime, Norvasc 10 mg p.o. daily, aspirin 81 p.o. daily, Lipitor 40 mg daily, calcitriol daily, Thorazine 25 mg 3 times a day, Plavix 75 daily, Aricept 10 mg at bedtime, Zetia 10 mg daily, ferrous sulfate 324 mg p.o. t.i.d., Neurontin 300 mg daily, heparin 5000 units prophylactically to prevent DVT, hydralazine 10 mg t.i.d. with parameters. The patient getting Accu-Cheks morning and at bedtime for insulin coverage, Namenda 10 mg p.o. daily, Reglan 5 mg once a day, Bystolic 5 mg daily, Protonix 40 mg daily, ReQuip 0.25 mg p.o. daily, sodium bicarbonate 650 p.o. b.i.d. The patient is on Flomax 0.4 mg p.o. b.i.d., Ultram 50 mg t.i.d. LABORATORY DATA: White blood cells 7.6, hemoglobin 10.6, hematocrit 32.3. Chemistry: Sodium 138, potassium 4.1, BUN 44, creatinine 3.5. Glucose elevated 250. ASSESSMENT AND PLAN: The patient has a diagnosis of acute renal failure, chronic anemia, hyperglycemia, epigastric pain. The patient's Plavix is on hold until he goes for upper gastrointestinal and lower colonoscopy test; diabetes mellitus, hypertension. The patient being covered with insulin and Accu-Chek, will continue hydralazine and Lipitor, will follow up with Gastroenterology on pending colonoscopy report. 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
[2018-07-20] MEDS: Insulin Reg-LOW-Coverage SC SCH ×5 (01:06→22:17)
[2018-07-20] MEDS ORDERED: Oxycodone/Acetaminophen 5/325 mg Tab PO STA (01:14)
[2018-07-20] MEDS: Pantoprazole 40 mg EC Tab PO SCH (06:25)
[2018-07-20 10:45] LABS: CALCIUM 9.3 mg/dL (8.4-10.5)
[2018-07-20] MEDS: Non Formulary Medication (Nebivolol [Bystolic] 5 MG) PO SCH (12:08)
--- NOTE | 2018-07-20 14:32 | PN ---
DATE: 07/20/2018 REASON FOR CONSULTATION: Coronary artery disease status post stent insertion, hypertension, hyperlipidemia, diabetes mellitus, abdominal pain, gastroparesis, generalized weakness, renal insufficiency, status post left arm fistula, being scheduled by endoscopy and colonoscopy for today. The patient off Plavix more than 5 days. SUBJECTIVE: The patient lying comfortably in bed without any chest pain, shortness of breath and palpitations. Still feel abdominal pain, epigastric area and still feel weak. PHYSICAL EXAMINATION: VITAL SIGNS: Blood pressure 138/78, respirations 20, pulse 70 and temperature 98.4. HEENT: Head is normocephalic. Eyes; pupil normal. Conjunctiva slight pale. NECK: JVP low. Carotid equal. THORAX: AP diameter normal. LUNGS: Clear. ABDOMEN: Soft and tenderness epigastric area. No organomegaly. EXTREMITIES: No clubbing. No cyanosis. LABORATORY DATA: WBC 7.6, hemoglobin 10.6, hematocrit 32.3 and platelet 179. Sodium 139, potassium 4.1, BUN 32, creatinine 3.1, random sugar 123, another glucose was 107 and calcium 9.3. DIAGNOSES: Coronary artery disease, history of acute massive anterior wall myocardial infarction in 2011 and the patient has angioplasty and stent insertion on that time. The patient off aspirin and Plavix. The patient had colonoscopy and endoscopy, last dose of plavix on . The patient had colonic polyps which required polypectomy, history of gastroparesis, abdominal pain, generalized weakness. Last echo of 05/19/2018 showed ejection fraction of 42-45%, mild tricuspid regurgitation, renal insufficiency, anemia, diabetes mellitus type II, gastroparesis, creatinine has improved as compared when the patient was admitted given IV fluid. PLAN: Clinically cardiac status is stable. There is no absolute contraindication for colonoscopy and endoscopic. Cardiac point of view, he can go for that procedure as moderate risk. The patient is on aspirin 81 mg daily, Elavil 10 mg p.o. at bedtime, ferrous sulfate 324 mg twice a day, Flomax 0.4 twice a day, heparin 5000 units subcutaneous every 12 hour, chlorthalidone 25 mg p.o. every other day, Lipitor 40 daily, Namenda 10 mg daily, Bystolic 5 mg p.o. daily, gabapentin 300 mg p.o. at bedtime, amlodipine 10 mg daily, on hold for 5 days preparation of colonoscopy and endoscopy and polypectomy, Protonix 40 daily, Requip 0.25 mg p.o. daily and sodium bicarb 650 p.o. twice a day. The patient getting 50 mL normal saline fluid because he is on p.o., Zetia 10 mg p.o. daily, Ultram 50 mg p.o. three times a day p.r.n. chlorpromazine 25 mg p.o. three times a day p.r.n. We will continue present therapy. We will follow with you. Anyi Herrera MD
--- NOTE | 2018-07-20 15:42 | PN ---
DATE: 07/20/2018 PULMONARY PROGRESS NOTE REFERRING PHYSICIAN: iGll Hoffman MD SUBJECTIVE: The patient seen sitting up in bed, no acute distress, and no overnight events reported. The patient is pending EGD/colonoscopy today. No headache, rhinitis, cough, shortness of breath, chest pain, abdominal pain, nausea, vomiting, diarrhea, leg pain, or leg swelling reported PHYSICAL EXAMINATION GENERAL: No acute distress. VITAL SIGNS: Blood pressure 138/70, pulse 70, temperature 98.4, and oxygen saturation 95% on room air. HEENT: Moist mucous membranes. NECK: Supple. No JVD. LUNGS: Fair airflow bilaterally. CARDIOVASCULAR: S1 and S2. ABDOMEN: Soft and nontender. No distention. No organomegaly. EXTREMITIES: No bilateral lower extremity edema. NEUROLOGIC: Awake, alert, verbal, and following commands. MEDICATIONS: Reviewed. Elavil 10 mg at bedtime, Norvasc 10 mg daily, aspirin 81 mg daily, Lipitor 40 mg at dinner, calcitriol 0.25 mcg on Mondays, Thorazine 25 mg three times a day p.r.n., chlorthalidone 25 mg every other day on hold, Plavix 75 mg daily on hold, Aricept 10 mg at bedtime, Zetia 10 mg daily, ferrous sulfate 324 mg twice a day, Neurontin 300 mg at bedtime, heparin 5000 units subcutaneous every 12 hours on hold, hydralazine 10 mg four times a day p.r.n. for systolic blood pressure greater than 160, Humulin R sliding scale a.c. and at bedtime, Namenda 10 mg daily, Bystolic 5 mg daily, Protonix 40 mg daily, Requip 0.25 mg daily, sodium bicarbonate 650 mg twice a day, sodium chloride 0.9% a 1000 mL at 50 mL per hour, Flomax 0.4 mg twice a day and tramadol 50 mg three times a day p.r.n. LABORATORY DATA: Sodium 139, potassium 4.1, chloride 105, carbon dioxide 28, anion gap 10, BUN 32, creatinine 3.2, GFR 20, POC glucose 123, random glucose 107, and calcium 9.3. IMPRESSION AND PLAN: Chronic cough possibly secondary to gastroparesis, diabetes mellitus, extensive coronary artery disease, hypertension, renal insufficiency, hyperlipidemia status post multiple stents, status post myocardial infraction, neuropathy, nephropathy, anemia, history of pancreatitis, and suspected sleep apnea syndrome. The patient is scheduled for esophagogastroduodenoscopy and colonoscopy today. Recommend close Cardiopulmonary monitoring while sedated. Continue Gastroenterology and Cardiology followup. Pulmonary point of view, continue inhaled bronchodilators, gastric prophylaxis, and head of bed elevated at 45 degrees. Heparin on hold for procedure today. Continue incentive spirometry. We recommend this patient has full pulmonary function test and sleep study as outpatient. This patient was seen and examined with Dr. Borja. Discussed assessment and plan as described above. This patient was seen and examined with Fortino Guzman, nurse practitioner. Discussed assessment and plan as described above. Thank you for this consult. We will follow with you. Fortino Guzman APN Anyi Borja MD
[2018-07-20] MEDS ORDERED: Propofol 10 mg/ml Inj (20 ML) ONE (16:49)
[2018-07-20] MEDS ORDERED: Etomidate 20 mg/10ml Inj IV ONE (16:50)
[2018-07-20] MEDS ORDERED: Sodium Chloride 0.9% 1,000 ML IV SCH (19:00)
[2018-07-20 19:45] VITALS: O2SAT 95
--- NOTE | 2018-07-20 21:06 | PN ---
DATE: 07/20/2018 SUBJECTIVE: Patient is a 63-year-old male. Patient was seen and examined at the bedside on 07/20/2018, looking comfortable. Patient is waiting to go for EGD and colonoscopy. No fever. No chills. No hematuria. No hematochezia. No headache. No dizziness. No chest pain. No palpitations. Feeling better. PHYSICAL EXAMINATION: VITAL SIGNS: Blood pressure 130/70, pulse 70, temperature 98.4, oxygen saturation 95% room air. HEENT: Head; normocephalic, atraumatic. Eyes; PERRLA. Extraocular muscles intact. Conjunctivae clear. Nose patent. Mucous membranes moist. NECK: Supple. No carotid bruits. No JVD. No thyromegaly. CHEST: Bilaterally symmetrical. HEART: S1, S1 positive. LUNGS: Clear to auscultation. ABDOMEN: Soft. Bowel sounds present. No organomegaly. EXTREMITIES: No edema. No cyanosis. NEUROLOGIC: The patient is awake and alert. Follows simple commands. MEDICATIONS: Elavil, Norvasc, aspirin, Lipitor, calcitriol, Thorazine, Plavix, Aricept, Zetia, heparin, insulin, Protonix, Requip, sodium bicarbonate, Flomax. ASSESSMENT AND PLAN: Mr. Anyi Herrera is a 63-year-old male with multiple medical problems, chronic cough, history of chronic obstructive pulmonary disease. The chronic cough may be secondary to gastroparesis. Insulin-dependent diabetes mellitus, extensive coronary artery disease was on Plavix, holding for procedure, hypertension, renal insufficiency. He got arteriovenous fistula on the left upper extremity but it is not successful, now he has to go for surgery Sonny again. Neuropathy, anemia, history of pancreatitis, sleep apnea syndrome. Patient was going for esophagogastroduodenoscopy and colonoscopy today. Gastroenterology and Pulmonary is on the case. Continue present treatment. We will start Plavix after the procedure. Repeat labs. Gill Hoffman MD
--- NOTE | 2018-07-20 21:21 | PN ---
DATE: 07/20/2018 SUBJECTIVE: The patient has no complaints of any chest pain. No shortness of breath. No headaches. PHYSICAL EXAMINATION: VITAL SIGNS: Temperature is 98.3, pulse of 78, blood pressure is 161/83, respirations 13. GENERAL: The patient is lying in bed, flat, comfortable. HEENT: No oral lesion. Anicteric sclerae. Moist mucosa. NECK: No JVD, adenopathy, or thyromegaly. CARDIOVASCULAR: S1 and S2, regular. No murmurs, rubs, or gallops. LUNGS: Clear to auscultation bilaterally. No wheeze, rales, or rhonchi. ABDOMEN: Bowel sounds are positive, soft, nontender and nondistended. EXTREMITIES: No cyanosis, clubbing or edema. LABORATORY DATA: White count of 7.6, hemoglobin 10.6. Creatinine is 3.1. ASSESSMENT: 1. Chronic kidney disease, stage 4. 2. Secondary hyperparathyroidism. 3. Acute kidney injury, resolved. 4. Left arteriovenous fistula. 5. Dyslipidemia. 6. Hypertension. 7. Diabetes type 2. 8. Diabetic nephropathy. 9. Proteinuria of 1.6 g per 24 hours. PLAN: The patient is scheduled for endoscopy today. He is currently receiving aspirin but is on hold. He is on amitriptyline in the evenings. He is on Lipitor for dyslipidemia. He is on Norvasc for his hypertension. The patient is on calcitriol for his secondary hyperparathyroidism. He is on IV fluids. The patient is on Zetia for his dyslipidemia. Jose Pastrana MD
[2018-07-21] MEDS: Pantoprazole 40 mg EC Tab PO SCH (05:37)
[2018-07-21 06:53] VITALS: PULSE 83; RESP 20; TEMP 98.4
[2018-07-21] MEDS: Insulin Reg-LOW-Coverage SC SCH ×3 (07:39→17:58)
[2018-07-21] MEDS: Non Formulary Medication (Nebivolol [Bystolic] 5 MG) PO SCH (11:16)
[2018-07-21] MEDS: NuLYTELY (NACL/NAHCO3/KCL/PEG) 4L PO ONE ×2 (11:17→11:28)
[2018-07-21 11:18] VITALS: BP 150/70
--- NOTE | 2018-07-21 11:39 | CP.PCM.PN ---
Subjective - Date & Time of Evaluation Date of Evaluation: 07/21/18 Time of Evaluation: 06:45 - Subjective Subjective: Awake, Lying in bed, alert, no distress Reason for consultation and follow up: Cardiac evaluation of coronary artery disease, hypertension, admitted for abdominal pain and generalized weakness, History of coronary artery disease, post multiple stents, status post CO, history of chronic renal insufficiency, diabetes,hypertension, hyperlipidemia,diabetic retinopathy, Seen and examined by me and Dr. Jacobo Objective - Vital Signs/Intake and Output Vital Signs (last 24 hours): Temp Pulse Resp BP Pulse Ox 98.4 F 83 20 150/70 95 07/21/18 06:00 07/21/18 06:00 07/21/18 06:00 07/21/18 11:17 07/21/18 06:00 Intake and Output: 07/21/18 07/21/18 06:59 18:59 Intake Total 0 Balance 0 - Medications Medications: Current Medications Amitriptyline HCl (Elavil) 10 mg PO HS [facility] Last Admin: 07/20/18 22:20 Dose: 10 mg Amlodipine Besylate (Norvasc) 10 mg PO DAILY [facility] Last Admin: 07/21/18 11:17 Dose: 10 mg Aspirin (Ecotrin) 81 mg PO DAILY [facility] Last Admin: 07/19/18 09:32 Dose: 81 mg Atorvastatin Calcium (Lipitor) 40 mg PO DIN [facility] Last Admin: 07/19/18 17:05 Dose: 40 mg Calcitriol (Rocaltrol) 0.25 mcg PO MON [facility] Last Admin: 07/18/18 10:24 Dose: 0.25 mcg Chlorpromazine (Thorazine) 25 mg PO TID PRN; Protocol PRN Reason: Hiccups Last Admin: 07/17/18 18:54 Dose: 25 mg Chlorthalidone (Hygroton) 25 mg PO QOTHERDAY [facility] Last Admin: 07/18/18 10:24 Dose: 25 mg Clopidogrel Bisulfate (Plavix) 75 mg PO DAILY [facility] Last Admin: 07/14/18 10:16 Dose: 75 mg Donepezil HCl (Aricept) 10 mg PO HS [facility] Last Admin: 07/20/18 22:20 Dose: 10 mg Ezetimibe (Zetia) 10 mg PO DAILY [facility] Last Admin: 07/21/18 11:17 Dose: 10 mg Ferrous Sulfate (Feosol) 324 mg PO BID [facility] Last Admin: 07/21/18 11:16 Dose: 324 mg Gabapentin (Neurontin) 300 mg PO HS [facility]; Protocol Last Admin: 07/20/18 22:20 Dose: 300 mg Heparin Sodium (Porcine) (Heparin) 5,000 units SC Q12 [facility]; Protocol Last Admin: 07/19/18 09:31 Dose: 5,000 units Hydralazine HCl (Apresoline) 10 mg PO QID PRN PRN Reason: For SBP>160 Last Admin: 07/20/18 13:30 Dose: 10 mg Insulin Human Regular (Humulin R Low) 0 units SC ACHS [facility]; Protocol Last Admin: 07/21/18 07:39 Dose: Not Given Memantine (Namenda) 10 mg PO DAILY [facility] Last Admin: 07/21/18 11:16 Dose: 10 mg Non-Formulary Medication (Nebivolol [Bystolic]) 5 mg PO DAILY [facility] Last Admin: 07/21/18 11:16 Dose: Not Given Pantoprazole Sodium (Protonix Ec Tab) 40 mg PO 0600 [facility] Last Admin: 07/21/18 05:37 Dose: 40 mg Ropinirole HCl (Requip) 0.25 mg PO DAILY [facility] Last Admin: 07/21/18 11:17 Dose: 0.25 mg Sodium Bicarbonate (Sodium Bicarbonate Tab) 650 mg PO BID [facility] Last Admin: 07/21/18 11:17 Dose: 650 mg Tamsulosin HCl (Flomax) 0.4 mg PO BID [facility] Last Admin: 07/21/18 11:16 Dose: 0.4 mg Tramadol HCl (Ultram) 50 mg PO TID PRN PRN Reason: Pain, severe (8-10) Last Admin: 07/21/18 11:27 Dose: 50 mg - Labs Labs: 07/19/18 06:20 07/20/18 10:20 PT 11.5 SECONDS (9.4-12.5) 07/12/18 13:10 INR 1.04 07/12/18 13:10 APTT 36.1 Seconds (26.9-38.3) 07/12/18 13:10 - Constitutional Appears: Non-toxic, No Acute Distress - Head Exam Head Exam: NORMAL INSPECTION, NORMOCEPHALIC - Eye Exam Eye Exam: Normal appearance Additional comments: legally blind - ENT Exam ENT Exam: Mucous Membranes Moist, Normal Exam - Respiratory Exam Respiratory Exam: Decreased Breath Sounds, Clear to Ausculation Bilateral, NORMAL BREATHING PATTERN - Cardiovascular Exam Cardiovascular Exam: +S1, +S2 - GI/Abdominal Exam GI & Abdominal Exam: Soft, Normal Bowel Sounds - Extremities Exam Extremities Exam: Full ROM, Normal Capillary Refill Additional comments: left AV fistula - Neurological Exam Neurological Exam: Alert, Awake, Oriented x3 - Psychiatric Exam Psychiatric exam: Normal Affect, Normal Mood - Skin Skin Exam: Dry, Normal Color, Warm Assessment and Plan - Assessment and Plan (Free Text) Assessment: A 63 year male who came in to the ER due to generalized weakness and abdominal pain. History of coronary artery disease, post multiple stents, status post CO, history of chronic renal insufficiency, diabetes,hypertension, hyperlipidemia,diabetic retinopathy,neuropathy, nephropathy,gastroparesis,pneumonia, anemia,pancreatitis. Echo done on 05/19/18 showed LVEF 40-45%, trace aortic and tricuspid regurgitation, trace to mild regurgitation. Stress done on 05/19/18 showed mid to distal anteroseptal and apical defect suspicious of ischemia. LVEF 52%. So far no evidence of acute ischemia, denies chest pain or shortness of breath. Aggressive medical treatment. Cardiac catheterization once renal function stabilized and or hemodiaysis initiated. GI work up in progress. Held Aspirin and Plavix at least 5 days for EGD. Had EGD/colonoscopy with biopsy yesterday, colonic polyps with polypectomy. Cardiac status stable. Will resume Plavix and Aspirin tomorrow if okay with GI. Will monitor clinically. Plan: Post EGD/colonoscopy/ polypectpmy with biopsy yesterday Held Aspirin and Plavix, will resume tomorrow Denies chest pain or shortness of breath Heart rate stable Blood pressure stable On Norvasc 10 mg daily, , Lipitor 40 mg daily Continue current treatment Continue current medications Glucose control Will follow up Plan and treatment discussed with Dr. Jacobo
[2018-07-21] MEDS: Sodium Chloride 0.9% 1,000 ML IV SCH (12:14)
--- NOTE | 2018-07-21 13:12 | PN ---
DATE: 07/21/2018 PULMONARY PROGRESS NOTE REFERRING PHYSICIAN: Gill Hoffman MD SUBJECTIVE: The patient seen sitting up at bedside, in no acute distress. No overnight events reported. The patient is status post EGD with biopsy and colonoscopy with polypectomy and biopsy. No headache, rhinitis, cough, shortness of breath, chest pain, abdominal pain, nausea, vomiting, diarrhea, leg pain, or leg swelling reported. OBJECTIVE VITAL SIGNS: Blood pressure 135/78, pulse 83, temperature 98.4, and oxygen saturation 95% on room air. GENERAL: No acute distress. HEENT: Moist mucous membranes. NECK: Supple. No JVD. LUNGS: Fair airflow bilaterally. CARDIOVASCULAR: S1 and S2. ABDOMEN: Soft and nontender. No distention. No organomegaly. EXTREMITIES: No bilateral lower extremity edema. NEUROLOGIC: Awake, alert, verbal, and following commands. MEDICATIONS: Reviewed. Elavil 10 mg at bedtime, Norvasc 10 mg daily, aspirin 81 mg daily, Lipitor 40 mg at dinner, calcitriol 0.25 mcg on Mondays, Thorazine 25 mg three times a day p.r.n., chlorthalidone 25 mg every other day, Plavix 75 mg daily, Aricept 10 mg at bedtime, Zetia 10 mg daily, ferrous sulfate 324 mg twice a day, gabapentin 300 mg at bedtime, heparin 5000 units subcutaneous every 12 hours on hold, hydralazine 10 mg four times a day p.r.n. for systolic blood pressure greater than 160, Humulin R sliding scale a.c. and at bedtime, Namenda 10 mg daily, Bystolic 5 mg daily, Protonix 40 mg daily, Requip 0.25 mg daily, sodium bicarbonate 650 mg twice a day, Flomax 0.4 mg twice a day, and tramadol 50 mg three times a day p.r.n. LABORATORY DATA: Reviewed. POC glucose 92. DIAGNOSTIC DATA: Endoscopy report shows diverticulosis in the sigmoid colon and descending colon, internal hemorrhoids, polyps. IMPRESSION AND PLAN: Chronic cough possibly secondary to gastroparesis, diabetes mellitus, extensive coronary artery disease, hypertension, renal insufficiency, hyperlipidemia status post multiple stents, status post myocardial infraction, neuropathy, nephropathy, anemia, history of pancreatitis, suspected sleep apnea syndrome, hemorrhoids, and diverticulosis. From Pulmonary point of view, continue bronchodilators and gastric prophylaxis. Head of bed elevated at 45 degrees. Sleep apnea precautions. Continue incentive spirometry use. Continue Gastroenterology followup. Recommend the patient to have full pulmonary function test and sleep study as outpatient. This patient was seen and examined with Dr. Borja. Discussed assessment and plan as described above. This patient was seen and examined with Fortino Guzman, nurse practitioner. Discussed assessment and plan as described above. Thank you for this consult. We will follow with you. Fortino Guzman APN Anyi Borja MD
--- NOTE | 2018-07-22 07:34 | DS ---
This case was discussed with Dr. Hoffman. She is in agreement with the treatment plan. HISTORY OF PRESENT ILLNESS: This is a 63-year-old male, came in with renal failure syndrome, epigastric pain. He has a past medical history of diabetes mellitus, hyperlipidemia, BPH, peripheral vascular disease, hypertension, chronic gastritis. I saw the patient at the bedside today who is alert and oriented. He stated that he thinks he needed rehab. Discussed with the patient, we will follow up with GI recommendations for endoscopy and colonoscopy. The patient denies shortness of breath, chest pain, hematuria, hematochezia, fever or chills. He still reports some epigastric pain, which may be from chronic gastric reflux disease. PHYSICAL EXAMINATION: VITAL SIGNS: Temperature 98.4, blood pressure 155/78, respirations 20, saturating at 95% on room air. GENERAL: The patient appeared in no acute distress, was lying in bed. I saw the patient today at bedside, had no complaints except for epigastric pain. HEENT: Normocephalic. PERRLA. Mucous membranes moist. RESPIRATORY: Clear to auscultation. No wheeze. No rhonchi. CARDIOVASCULAR: S1 and S2. No murmur. No gallop. GASTROINTESTINAL: Abdomen is soft, nontender, distended, has some tenderness to epigastric area. SKIN: Intact. No cyanosis. EXTREMITIES: No leg swelling. No calf tenderness. NEUROLOGICAL: The patient is alert and oriented x3. Cranial nerves II to XII intact. No cognitive deficits. MEDICATIONS: Elavil 10 mg, Norvasc 10 mg daily, aspirin 81 mg daily, Lipitor 40 mg p.o. daily, Calcitrol every Wednesday, Thorazine 25 mg three times a day, Plavix 75 mg p.o. daily, Aricept 10 mg p.o. at bedtime, Zetia 10 mg p.o. at bedtime, ferrous sulfate 324 mg b.i.d., Neurontin 300 mg at bedtime, CIWA heparin 5,000 units prophylactically, hydralazine 10 mg every 4 times a day, Accu-Chek a.c. at bedtime for insulin regular coverage, Namenda 10 mg, Protonix 40 mg, ReQuip daily, sodium bicarbonate b.i.d., Fosamax 0.4 mg p.o. b.i.d., Ultram three times a day. LABORATORY DATA: White blood cells 7.6, hemoglobin 10.6, hematocrit 32.3, platelet count 179. Sodium 139, potassium 4.1, BUN is 32, creatinine is 2.1, glucose is 158. Stool culture reviewed; no Salmonella, shigella, or Campylobacter. Helicobacter pylori noted. Ova parasite exam reviewed, no ova parasites. The patient also has stool. Clostridium difficile toxin test was negative. ASSESSMENT AND PLAN: This is a 63-year-old male, came in with nonspecific fatigue, some nausea, no vomiting, epigastric dull pain, has a gastric ulcer versus duodenal ulcer, cognitive deficits, hyperlipidemia, hypertension. The patient has taken Norvasc, he is continuing on Lipitor, Aricept, Zetia, Neurontin, hydralazine, Elavil. The patient had a colonoscopy, endoscopy yesterday inpatient. We will review results, follow up with the patient, hopefully we will follow up with Gastroenterology outpatient. The patient is good for discharge today. He is cleared by Cardiology, Pulmonology. Once cleared with Gastroenterology, the patient is ready for discharge today. The patient will be discharged with medications at the bedside. We will follow up the patient outpatient. ALL ABOVE NOTED , EDUCATION DONE , AGREED ALL ABOVE , WILL F/U Jan Vicente APN Gill Hoffman MD JEMIMA
== END 2018-07-21 21:11 | disposition home or self-care (01) | DRG 74 ==
LOC: ED 12:11 → ERH 15:11 → 3RNO 17:25
PROVIDERS: ADMIT Internal Medicine; ATTEND Internal Medicine
PROC: 0DBK8ZZ Excision of Ascending Colon, Via Natural or Artificial Opening Endoscopic (ICD-10-PCS; principal; 2018-07-20 14:30)
PROC: 0DBL8ZZ Excision of Transverse Colon, Via Natural or Artificial Opening Endoscopic (ICD-10-PCS; 2018-07-20 14:30)
PROC: 0DBH8ZZ Excision of Cecum, Via Natural or Artificial Opening Endoscopic (ICD-10-PCS; 2018-07-20 14:30)
DX: E11.43 Type 2 diabetes mellitus with diabetic autonomic (poly)neuropathy (principal); N17.9 Acute kidney failure, unspecified; N18.4 Chronic kidney disease, stage 4 (severe); N25.81 Secondary hyperparathyroidism of renal origin; K31.84 Gastroparesis; I12.9 Hypertensive chronic kidney disease with stage 1 through stage 4 chronic kidney disease, or unspecified chronic kidney disease; E11.22 Type 2 diabetes mellitus with diabetic chronic kidney disease; I25.10 Atherosclerotic heart disease of native coronary artery without angina pectoris; E11.21 Type 2 diabetes mellitus with diabetic nephropathy; E11.319 Type 2 diabetes mellitus with unspecified diabetic retinopathy without macular edema; E11.51 Type 2 diabetes mellitus with diabetic peripheral angiopathy without gangrene; E11.65 Type 2 diabetes mellitus with hyperglycemia; N40.0 Benign prostatic hyperplasia without lower urinary tract symptoms; D12.0 Benign neoplasm of cecum; J44.9 Chronic obstructive pulmonary disease, unspecified; K63.5 Polyp of colon; E78.00 Pure hypercholesterolemia, unspecified; K57.30 Diverticulosis of large intestine without perforation or abscess without bleeding; K29.50 Unspecified chronic gastritis without bleeding; D63.8 Anemia in other chronic diseases classified elsewhere; K64.8 Other hemorrhoids; E78.5 Hyperlipidemia, unspecified; G47.30 Sleep apnea, unspecified; H54.8 Legal blindness, as defined in USA; K21.9 Gastro-esophageal reflux disease without esophagitis; R26.2 Difficulty in walking, not elsewhere classified; I25.2 Old myocardial infarction; Z79.02 Long term (current) use of antithrombotics/antiplatelets; Z79.4 Long term (current) use of insulin; Z79.82 Long term (current) use of aspirin; Z95.5 Presence of coronary angioplasty implant and graft